=== PATIENT | male | born 1945 | race Caucasian/White ===

== ENCOUNTER 2016-09-25 22:35 | Emergency (ER) | payer OTHER ==
[~2016-09-25] VITALS: Ht 177.8 cm; Wt 99.2 kg
[~2016-09-25 22:35] MED LIST: ALBUAER19 INH; ASPI81TA57 PO; ATOR80TA PO; CALC500T83; CHOL100027 PO; CILO50TA9 PO; CITA20TA4 PO; CLON0.5T PO; CLOP1TAB5 PO; DSWCR EXT; GLUCTAB7 PO; ISOS30TA3 PO; KETO2CRE14 EXT; LPR25 PO; LSN/10125 PO; MULT-506 PO; NITR0.4S UT; SILD100T PO; ULT/50 PO
[2016-09-25 22:39] VITALS: TEMP 36.3; Ht 177.8 cm; Wt 99.2 kg
[2016-09-26 00:56] VITALS: BP 120/67; PULSE 72; O2SAT 94
--- NOTE | 2016-09-26 02:46 | EMERGENCY ROOM VISIT NOTE ---
History Report prepared by Elliott: Lit Reyes Under the Supervision of: Dr. Cuauhtemoc Carter M.D. First contact with patient: 22:56 Chief Complaint: CONSTIPATION Stated Complaint: CONSTIPATED History of Present Illness The patient is a 71 year old male who presents to the Emergency Room with complaints of constipation. His last normal bowel movement was about 4 days ago. He has been using stool softeners and MiraLAX without relief. He has been passing gas as normal. He reports some mild abdominal distention. He denies any pain. He denies any fevers, chest pain, shortness of breath, nausea, vomiting, urinary symptoms, or any other complaints. He denies any history of abdominal surgeries. He is not currently on any pain medications. Source of History: patient Onset: about 4 days ago Position: other (global) Symptom Intensity: No pain Quality: other (constipation) Modifying Factors (Relieving): other (stool softeners and MiraLAX without relief) Associated Symptoms: No SOB, No chest pain, No fevers, No nausea, No urinary symptoms, No vomiting Review of Systems See HPI for pertinent positives & negatives. A total of 10 systems reviewed and were otherwise negative. 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 (5) Depressive Disorder Nec (6) Diarrhea (7) Heart disease (8) Hypertension (9) Hypertension Nos (10) Mixed Hyperlipidemia Family History Heart disease Social History Smoking Status: Never Smoker Marital Status: Housing Status: lives with family Occupation Status: employed Current/Historical Medications Scheduled Aspirin (Aspirin Ec Lo-Dose), 81 MG PO DAILY Atorvastatin Calcium (Lipitor), 80 MG PO DAILY Calcium (Calcium), 500 MG BID Cholecalciferol (Vitamin D 1000 Unit), 1,000 INTER.UNIT PO DAILY Cilostazol (Pletal), 50 MG PO BID Citalopram Hydrobromide (Citalopram Hydrobromide), 20 MG PO DAILY Clonazepam (Klonopin), 1 MG PO HS Clopidogrel Bisulfate (Plavix), 75 MG PO DAILY Desonide 0.05% (Desowen 0.05%), 1 APPLN EXT DIRECTED Ememwzqglyg-Rapvaswguor-Grt C- (Glucosamine Chondroitin), 1 TABLET PO BID Hctz/Lisinopril (Lisinopril/Hctz 10/12.5 Mg), 1 TAB PO DAILY Hctz/Lisinopril (Lisinopril/Hctz 10/12.5 Mg), 12.5 MG PO DAILY Isosorbide Mononitrate Ext Rel (Imdur Ext Rel), 30 MG PO QAM Ketoconazole 2% (Nizoral 2%), 1 APPLN EXT DIRECTED Metoprolol Tartrate (Lopressor), 25 MG PO BID Multivitamin (Multivitamin), 1 TAB PO DAILY Nitroglycerin (Nitrostat), 0.4 MG UT PRN Sildenafil Citrate (Viagra), 100 MG PO PRN Scheduled PRN Albuterol Inhaler (Ventolin Inhaler), 2 PUFFS INH Q6 PRN Tramadol Hcl (Ultram), 50 MG PO Q4H PRN Allergies Coded Allergies: BEE STING (Unverified Allergy, Unknown, SWELLING, 09/20/14) Physical Exam Vital Signs Date Time Temp Pulse Resp B/P Pulse Ox O2 Delivery O2 Flow Rate FiO2 09/26/16 00:56 72 120/67 94 09/25/16 22:39 36.3 70 20 133/82 94 Room Air Physical Exam Constitutional: Vital signs reviewed. Eyes: Pupils are equal round reactive to light. Conjunctiva are noninjected. ENT: Pharynx is clear without erythema or exudate. Mucous membranes are moist. Neck supple without meningeal signs. Respiratory: Clear to auscultation bilaterally. Breath sounds are equal bilaterally. Cardiovascular: Regular rate and rhythm. No rubs or gallops. GI: Soft, nondistended and nontender. Bowel sounds are present. Musculoskeletal: No peripheral edema. Integumentary: No cyanosis. Neurological: The patient is awake and alert. No focal deficits. Psychiatric: Normal affect. Medical Decision & Procedures ER Provider Diagnostic Interpretation: X-ray results as stated below per interpretation by me: CHEST/ABDOMEN X-RAY Significant fecal retention, no obstruction or free air. ED Course 2255: The patient was evaluated in room C02B. A complete history and physical exam was performed. 0039: Upon reevaluation, the patient appeared to have improvement of his symptoms. He had a large bowel movement prior to the enema and feels much better. I discussed tonight's findings with him. He verbalized agreement of the treatment plan. He was discharged home. Medical Decision This is a 71-year-old male who presents with constipation. I did perform a limited focused review of portions of the patient's old chart on the electronic medical record. The patient has had no recent pertinent visits to this hospital. I did evaluate the patient as noted above. He is presenting without a bowel movement for several days. He has had some slight abdominal distention but denies any pain, nausea, fever or vomiting. I did order and personally review the patient's abdominal and chest x-rays as described above. He does have fecal retention without evidence of obstruction. I did discuss the x-ray results with them. I did order a soapsuds enema. The nurse states that before he was given the enema and the patient decided to try to have a bowel movement and had a very large bowel movement. On reevaluation he states he feels much better and is ready for discharge. He was advised to continue stool softeners and increase his fiber and fluid intake. He was told to follow with his doctor and discharged in good condition. Impression Primary Impression: Constipation Scribe Attestation The scribe's documentation has been prepared under my direct and personally reviewed by me in its entirety. I confirm that the note above accurately reflects all work, treatment, procedures, and medical decision making performed by me. Departure Information Dispostion Home / Self-Care Referrals Dallas Chong M.D. (PCP) Forms HOME CARE DOCUMENTATION FORM, IMPORTANT VISIT INFORMATION Patient Instructions Constipation, [facility] Additional Instructions You have been examined and treated today on an emergency basis only. This is not a substitute for, or an effort to provide, complete comprehensive medical care. It is impossible to recognize and treat all injuries or illnesses in a single emergency department visit. It is therefore important that you follow up closely with your physician. Call as soon as possible for an appointment. Return for worsening symptoms or if you develop fever, vomiting, abdominal pain or any other concerning symptoms. Problem Qualifiers Primary Impression: Constipation Constipation type: unspecified constipation type Qualified Codes: K59.00 - Constipation, unspecified
--- NOTE | 2016-09-26 06:47 | DIAGNOSTIC IMAGING REPORT ---
PA CHEST RADIOGRAPH AND UPRIGHT AND SUPINE AP RADIOGRAPHS OF THE ABDOMEN CLINICAL HISTORY: Constipation. Evaluate for bowel obstruction. COMPARISON STUDY: Chest radiograph and CT of the abdomen and pelvis September 20, 2014. FINDINGS: Lung volumes are normal. There is no pneumothorax or pleural effusion. There is mild interstitial thickening which may be chronic. Cardiac size is normal. Mediastinal contours are normal. There is no evidence of pulmonary edema. There is no free air. A large amount of stool within the colon and rectum is noted. There is mild to moderate distention of the colon. IMPRESSION: 1. Large amount of stool within the colon and rectum with associated colonic distention. 2. No convincing evidence for a bowel obstruction. 3. No free air. 4. No acute cardiopulmonary findings. 5. Interstitial thickening within the lungs which may be chronic. Electronically signed by: Kvng Werner M.D. 09/26/2016 6:46 AM Dictated Date/Time: 09/26/2016 6:43 AM
== END 2016-09-26 00:57 | disposition home or self-care (01) ==
LOC: C.EDB 22:36 → C.EDC 09-26 00:57
DX: K59.00 Constipation, unspecified (principal); Z98.49 Cataract extraction status, unspecified eye; I25.10 Atherosclerotic heart disease of native coronary artery without angina pectoris; F32.9 Major depressive disorder, single episode, unspecified; I10 Essential (primary) hypertension; E78.2 Mixed hyperlipidemia; Z79.82 Long term (current) use of aspirin; Z79.899 Other long term (current) drug therapy

== ENCOUNTER 2017-04-19 21:46 | Emergency (ER) | payer OTHER ==
[~2017-04-19] VITALS: Ht 177.8 cm; Wt 99.9 kg
[~2017-04-19 21:46] MED LIST changes: -MULT-506 PO
[2017-04-19 21:58] VITALS: Ht 177.8 cm; Wt 99.9 kg
[2017-04-19] MEDS ORDERED: HYDROCODONE/HOMATROPINE SYRUP 5MG/1.5MG 5ML UDP PO STA (22:19)
[2017-04-19] MEDS ORDERED: SODIUM CHLORIDE 0.9% 500ML 500 ML IV STA (22:19)
--- NOTE | 2017-04-19 22:23 | EMERGENCY ROOM VISIT NOTE ---
History Report prepared by Elliott: Jer Stauffer Under the Supervision of: Dr. Marin Bradford M.D. First contact with patient: 22:06 Chief Complaint: SORETHROAT Stated Complaint: COUGH,CHILLS,SOB,GOING ON SINCE EARLY MARCH History of Present Illness The patient is a 72 year old male who presents to the Emergency Room with complaints of a persistent sorethroat and cough beginning one month ago. The patient states one month ago, he developed a cough, post nasal drip, sorethroat , and he could not stop sneezing. He reports the sorethroat was concerning because he has a history of a tonsillectomy. The patient notes he was evaluated and given amoxicillin. He states he started to feel better, but then he got worse. The patient reports he would wake up in the middle of the night to cough. He notes he was reevaluated after he finished his amoxicillin and was given prednisone. The patient states he continued to use the nose sprays and take his prednisone. He reports he received two chest x-rays as well, and they were both negative. The patient notes he coughed to the point he could not catch his breath. He states he can still feel the mucus in his nose, and he developed a headache. The patient reports he has tried cough medication and Robitussin, but they did not help. He notes he recently started Lisinopril, but his cough developed before he was prescribed the medication. Source of History: patient Onset: month ago Position: other (global) Quality: other (sorethroat, cough) Timing: other (persistent) Associated Symptoms: + headache Note: Associated symptoms: post nasal drip, sneezing, mucus in nose Review of Systems See HPI for pertinent positives & negatives. A total of 10 systems reviewed and were otherwise negative. 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 (5) Depressive Disorder Nec (6) Diarrhea (7) Heart disease (8) Hypertension (9) Hypertension Nos (10) Mixed Hyperlipidemia Family History Heart disease Social History Smoking Status: Never Smoker Marital Status: Housing Status: lives with family Occupation Status: employed Current/Historical Medications Scheduled Aspirin (Aspirin), 1 TAB PO DAILY Calcium (Calcium), 500 MG BID Cholecalciferol (Vitamin D 1000 Unit), 1,000 INTER.UNIT PO DAILY Cilostazol (Pletal), 100 MG PO BID Citalopram Hydrobromide (Citalopram Hydrobromide), 20 MG PO DAILY Clonazepam (Klonopin), 1 MG PO HS Coenzyme Q10 (Ubidecarenone) (Co Q-10), 400 MG PO DAILY Famotidine (Pepcid), 40 MG PO HS Fluticasone Propionate (Nasal) (Flonase Allergy Relief), 2 SPRAYS LUCÍA DAILY Folic Acid (Folic Acid), 400 MCG PO DAILY Levofloxacin (Levaquin), 750 MG PO DAILY Lisinopril (Prinivil), 5 MG PO DAILY Metoprolol Succ (Toprol Xl) (Toprol-Xl), 25 MG PO DAILY Multivitamin (Multivitamin), 1 TAB PO DAILY Nitroglycerin (Nitrostat), 0.4 MG UT PRN Prednisone Tab (Prednisone), 10 MG PO TAPER UD Simvastatin (Zocor), 10 MG PO QPM Scheduled PRN Albuterol Hfa (Ventolin Hfa), 2 PUFFS INH Q6H PRN for SOB/Wheezing Guaifenesin/Codeine (Robitussin-Ac Syrup), 5 ML PO Q4 PRN for Cough Hydrocodone W/ Homatropine (Hycodan 5/1.5MG 5 Ml), 5 ML PO HS PRN for Cough Allergies Coded Allergies: Atorvastatin (Verified Allergy, Unknown, MUSCLE PAIN, 04/19/17) BEE STING (Unverified Allergy, Unknown, SWELLING, 09/20/14) Physical Exam Vital Signs Date Time Temp Pulse Resp B/P (MAP) Pulse Ox O2 Delivery O2 Flow Rate FiO2 04/20/17 00:09 36.7 60 18 134/67 95 Room Air 04/19/17 23:00 63 18 95 Room Air 04/19/17 22:37 69 04/19/17 22:35 96 Room Air 04/19/17 22:35 96 Room Air 04/19/17 21:58 36.7 69 18 127/75 92 Room Air Physical Exam GENERAL: Patient is a healthy-appearing well-nourished 72 year old male. HEAD: Normocephalic atraumatic EYES: Ocular movements intact pupils equal and react to light OROPHARYNX mucous membranes are moist no exudates present no erythema or edema present NECK: Supple no nuchal rigidity CHEST: Good equal expansion LUNGS: Clear and equal to auscultation CARDIAC: Normal S1 and S2 ABDOMEN: Soft nontender no guarding BACK: No CVA tenderness EXTREMITIES: No pain upon palpation normal muscle strength in all groups no clubbing cyanosis or edema NEURO: Patient is following commands and answering questions appropriately. Alert and oriented x3 Cranial Nerves 2-12 grossly intact Medical Decision & Procedures ER Provider Diagnostic Interpretation: Radiology results as stated below per my review and radiologist interpretation: CHEST ONE VIEW PORTABLE HISTORY: Pt c/o cough COMPARISON: Chest 09/25/2016. FINDINGS: No focal lung consolidations to suggest pneumonia. No evidence for pulmonary edema. The heart is normal in size. No pleural effusions. No pneumothorax. IMPRESSION: No acute process. Electronically signed by: Praneeth Luther M.D. 04/19/2017 11:04 PM Dictated Date/Time: 04/19/2017 11:03 PM Laboratory Results 04/19/17 22:37 Red Blood Count 4.62, Mean Corpuscular Volume 89.6, Mean Corpuscular Hemoglobin 30.7, Mean Corpuscular Hemoglobin Concent 34.3, Mean Platelet Volume 9.9, Neutrophils (%) (Auto) 70.1, Lymphocytes (%) (Auto) 13.1, Monocytes (%) (Auto) 9.3, Eosinophils (%) (Auto) 6.4, Basophils (%) (Auto) 0.7, Neutrophils # (Auto) 5.96, Lymphocytes # (Auto) 1.11, Monocytes # (Auto) 0.79, Eosinophils # (Auto) 0.54, Basophils # (Auto) 0.06 04/19/17 22:37 Test 04/19/17 22:30 04/19/17 22:37 Influenza Type A (RT-PCR) Neg for Influ A (NEG) Influenza Type A Antigen Neg for Influ A (NEG) Influenza Type B Antigen Neg for Influ B (NEG) Influenza Type B (RT-PCR) Neg for Influ B (NEG) White Blood Count 8.49 K/uL (4.8-10.8) Red Blood Count 4.62 M/uL (4.7-6.1) Hemoglobin 14.2 g/dL (14.0-18.0) Hematocrit 41.4 % (42-52) Mean Corpuscular Volume 89.6 fL (80-100) Mean Corpuscular Hemoglobin 30.7 pg (25-34) Mean Corpuscular Hemoglobin Concent 34.3 g/dl (32-36) Platelet Count 191 K/uL (130-400) Mean Platelet Volume 9.9 fL (7.4-10.4) Neutrophils (%) (Auto) 70.1 % Lymphocytes (%) (Auto) 13.1 % Monocytes (%) (Auto) 9.3 % Eosinophils (%) (Auto) 6.4 % Basophils (%) (Auto) 0.7 % Neutrophils # (Auto) 5.96 K/uL (1.4-6.5) Lymphocytes # (Auto) 1.11 K/uL (1.2-3.4) Monocytes # (Auto) 0.79 K/uL (0.11-0.59) Eosinophils # (Auto) 0.54 K/uL (0-0.5) Basophils # (Auto) 0.06 K/uL (0-0.2) RDW Standard Deviation 45.4 fL (36.4-46.3) RDW Coefficient of Variation 13.8 % (11.5-14.5) Immature Granulocyte % (Auto) 0.4 % Immature Granulocyte # (Auto) 0.03 K/uL (0.00-0.02) Anion Gap 6.0 mmol/L (3-11) Est Creatinine Clear Calc Drug Dose 64.3 ml/min Estimated GFR () 67.6 Estimated GFR (Non- 58.3 BUN/Creatinine Ratio 16.7 (10-20) Calcium Level 8.3 mg/dl (8.5-10.1) Total Bilirubin 0.3 mg/dl (0.2-1) Aspartate Amino Transf (AST/SGOT) 14 U/L (15-37) Alanine Aminotransferase (ALT/SGPT) 23 U/L (12-78) Alkaline Phosphatase 96 U/L (45-117) Total Protein 6.3 gm/dl (6.4-8.2) Albumin 3.2 gm/dl (3.4-5.0) Globulin 3.1 gm/dl (2.5-4.0) Albumin/Globulin Ratio 1.0 (0.9-2) Labs reviewed by ED physician. Medications Administered Medications (Trade) Dose Ordered Sig/Willian Route Start Time Stop Time Status Last Admin Dose Admin Sodium Chloride 500 ml @ 999 mls/hr Q31M STAT IV 04/19/17 22:19 04/19/17 22:49 DC 04/19/17 22:51 999 MLS/HR Hydrocodone Bit/ Homatropine Methylb (Hycodan Syrup) 5 ml NOW STAT PO 04/19/17 22:19 04/19/17 22:22 DC 04/19/17 22:51 5 ML Albuterol/ Ipratropium (Duoneb) 12 ml ONE ONCE INH 04/19/17 22:30 04/19/17 22:31 DC 04/19/17 22:55 12 ML Levofloxacin (Levaquin Tab) 750 mg NOW STAT PO 04/19/17 22:26 04/19/17 22:27 DC 04/19/17 22:52 750 MG Sodium Chloride ([place] Nasal [place]) 2 sprays NOW STAT NA 04/19/17 22:31 04/19/17 22:32 DC 04/19/17 22:52 2 SPRAYS Famotidine (Pepcid Tab) 20 mg NOW STAT PO 04/19/17 22:42 04/19/17 22:43 DC 04/19/17 23:00 20 MG Sucralfate (Carafate Tab) 1 gm NOW STAT PO 04/19/17 22:42 04/19/17 22:43 DC 04/19/17 23:00 1 GM Lidocaine HCl (Viscous Lidocaine 2% Soln) 20 ml STK-MED ONCE .ROUTE 04/19/17 22:54 04/19/17 22:55 DC 04/19/17 23:01 20 ML Al Hydroxide/Mg Hydroxide (Maalox Susp) 30 ml STK-MED ONCE .ROUTE 04/19/17 22:54 04/19/17 22:55 DC 04/19/17 23:00 30 ML Hydrocodone Bit/ Homatropine Methylb (Hycodan Elix Homepack 5/1.5MG/ 5ML) 1 homepack UD STAT PO 04/20/17 00:05 04/20/17 00:06 DC 04/20/17 00:14 1 HOMEPACK ECG Indication: SOB/dyspnea Rate (beats per minute): 67 Rhythm: normal sinus Findings: RBBB (incomplete), no acute ischemic change, no ectopy ED Course 2209: Past medical records reviewed. The patient was evaluated in room C08. A complete history and physical examination was performed. 2218: Ordered Hycodan Syrup 5ml PO, Sodium Chloride 500 ml @ 999 mls/hr IV 6: Ordered Levofloxacin 750mg PO 2230: Ordered Duoneb 12ml INH 223: Ordered Sodium Chloride 2 sprays NA 2242: Ordered Sucralfate 1gm PO, Famotidine 20mg PO 2254: Ordered Maalox Susp 30ml PO, Lidocaine HCl 20ml .ROUTE Medical Decision Differential diagnosis: Etiologies such as viral syndrome, tonsillitis, streptococcal pharyngitis, mononucleosis, peritonsillar abscess, retropharyngeal abscess, otitis, pneumonia , influenza, as well as others were entertained. This is a 72-year-old male who presents emergency department complaining of cough that has been ongoing for the past 6 weeks. The patient was given Hycodan in the emergency department along with hour-long breathing treatment and started on Levaquin. A pertussis sample was obtained. I recommended that the patient stopped taking was sent up rolled. At this point I feel that the patient is well enough to be discharged home for follow-up with his primary care physician. Patient and are in agreement with the treatment plan. Medication Reconcilliation Current Medication List: was personally reviewed by me Blood Pressure Screening Patient's blood pressure: Normal blood pressure Blood pressure disposition: Did not require urgent referral Impression Primary Impression: Cough Scribe Attestation The scribe's documentation has been prepared under my direction and personally reviewed by me in its entirety. I confirm that the note above accurately reflects all work, treatment, procedures, and medical decision making performed by me. Departure Information Dispostion Home / Self-Care Prescriptions Hydrocodone W/ Homatropine (HYCODAN 5/1.5MG 5 ML) 1 Syp Syp 5 ML PO HS Y for Cough, #120 ML Prov: Marin Bradford MD 04/20/17 Famotidine (Pepcid) 40 Mg Tab 40 MG PO HS for 30 Days, #30 TAB Prov: Marin Bradford MD 04/20/17 Levofloxacin (Levaquin) 750 Mg Tab 750 MG PO DAILY for 5 Days, #5 TAB Prov: Marin Bradford MD 04/20/17 Referrals Kaz Robledo M.D. (PCP) Patient Instructions [facility]
[2017-04-19] MEDS ORDERED: LEVOFLOXACIN 250 MG TAB PO STA (22:26)
[2017-04-19] MEDS ORDERED: ALBUT/IPRATROP 3MG/0.5MG NEB 3 ML VIAL INH ONE (22:30)
[2017-04-19] MEDS ORDERED: SODIUM CHLORIDE 0.65% NA SOLN 45 ML (OCEAN) STA (22:31)
[2017-04-19] MEDS ORDERED: PRED10TA PO (22:34)
[2017-04-19] MEDS ORDERED: METO25TA3 PO (22:34)
[2017-04-19] MEDS ORDERED: GUAISYP4 PO (22:34)
[2017-04-19] MEDS ORDERED: VNTHFA/IN INH (22:34)
[2017-04-19] MEDS ORDERED: FLUT0.15 NAE (22:34)
[2017-04-19] MEDS ORDERED: FLV400 PO (22:34)
[2017-04-19] MEDS ORDERED: ASPI1TAB83 PO (22:34)
[2017-04-19] MEDS ORDERED: CILO100T PO (22:34)
[2017-04-19] MEDS ORDERED: SIMV10TA2 PO (22:34)
[2017-04-19] MEDS ORDERED: LISI-729 PO (22:34)
[2017-04-19] MEDS ORDERED: COEN1CAP40 PO (22:34)
[2017-04-19 22:35] VITALS: O2SAT 96
[2017-04-19] MEDS ORDERED: FAMOTIDINE 20 MG TAB PO STA (22:42)
[2017-04-19] MEDS ORDERED: GI COCKTAIL PO STA (22:42)
[2017-04-19] MEDS ORDERED: SUCRALFATE 1 GM TAB PO STA (22:42)
[2017-04-19 22:51] LABS: BASO % 0.7 %; BASO ABS # 0.06 K/uL (0-0.2); COMPLETE YES; EOS % 6.4 %; HEMATOCRIT 41.4 % (42-52); IG% 0.4 %; LYMPH % 13.1 %; LYMPH ABS # 1.11 K/uL (1.2-3.4); MEAN CELL VOLUME 89.6 fL (80-100); MEAN CORPUSCULAR HEMOGLOBIN 30.7 pg (25-34); MEAN CORPUSCULAR HGB CONC 34.3 g/dl (32-36); MEAN PLATELET VOLUME 9.9 fL (7.4-10.4); MONO % 9.3 %; NEUT % 70.1 %; PLATELET COUNT 191 K/uL (130-400); RED BLOOD COUNT 4.62 M/uL (4.7-6.1); WHITE BLOOD COUNT 8.49 K/uL (4.8-10.8)
[2017-04-19] MEDS ORDERED: ALUMINUM/MAGNESIUM SUSP 30 ML UDC ONE (22:54)
[2017-04-19] MEDS ORDERED: LIDOCAINE HCL 2% VISC SOLN 20 ML UDC ONE (22:54)
[2017-04-19 23:00] VITALS: PULSE 63; O2SAT 95
--- NOTE | 2017-04-19 23:05 | DIAGNOSTIC IMAGING REPORT ---
CHEST ONE VIEW PORTABLE HISTORY: Pt c/o cough COMPARISON: Chest 09/25/2016. FINDINGS: No focal lung consolidations to suggest pneumonia. No evidence for pulmonary edema. The heart is normal in size. No pleural effusions. No pneumothorax. IMPRESSION: No acute process. Electronically signed by: Praneeth uLther M.D. 04/19/2017 11:04 PM Dictated Date/Time: 04/19/2017 11:03 PM
[2017-04-19 23:15] LABS: BUN/CREATININE RATIO 16.7 (10-20); CALCIUM 8.3 mg/dl (8.5-10.1); CREATININE 1.23 mg/dl (0.60-1.40); POTASSIUM 3.9 mmol/L (3.5-5.1)
[2017-04-19] MEDS ORDERED: MULT-506 PO (23:54)
[2017-04-20] MEDS ORDERED: HYCODAN 60ML BOTTLE HOMEPACK PO STA (00:05)
[2017-04-20 00:06] LABS: INFLUENZA A PCR Neg for Influ A (NEG); INFLUENZA B PCR Neg for Influ B (NEG)
[2017-04-20] MEDS ORDERED: LEVO1TAB35 PO (00:08)
[2017-04-20 00:09] VITALS: BP 134/67; PULSE 60; TEMP 36.7; O2SAT 95
[2017-04-20] MEDS ORDERED: FAMO40TA6 PO (00:10)
[2017-04-20] MEDS ORDERED: HYDR5SYP11 PO (00:10)
--- NOTE | 2017-04-20 06:36 | DIAGNOSTIC IMAGING REPORT ---
CT OF THE HEAD WITHOUT CONTRAST CLINICAL HISTORY: Sinus pressure. COMPARISON STUDY: Head CT January 17, 2013. CT DOSE: 614.27 mGy.cm TECHNIQUE: Helical axial images of the head were obtained without IV contrast. Automated exposure control was utilized for the study. A dose lowering technique was utilized adhering to the principles of ALARA. FINDINGS: No acute intracranial hemorrhage, midline shift or mass effect is present. Ventricular system is unremarkable. Basilar cisterns are patent. There are no extra-axial collections. There are no findings to suggest acute dural sinus thrombosis or acute territorial infarct. There are no significant calvarial abnormalities. Mastoid air cells are clear. There is mild mucosal thickening of the sphenoid sinuses with moderate mucosal thickening of the ethmoid sinuses and a air-fluid level secretions within the right frontal sinus. IMPRESSION: 1. No acute intracranial findings. 2. Right inferior frontal sinus air-fluid level with secretions which favors acute sinusitis. Ethmoid and sphenoid sinus mucosal thickening. Electronically signed by: Kvng Werner M.D. 04/20/2017 6:35 AM Dictated Date/Time: 04/20/2017 6:32 AM
--- NOTE | 2017-04-20 11:22 | Pharmacy Progress Note ---
ED Pharmacist Progress Note Date of Service: Apr 20, 2017. [facility] pharmacy called requesting OK to dispense change famotidine Rx to 20mg tabs, take 2 tabs (40mg) Q HS. Case was reviewed with ED providers, OK to make this substitution.
== END 2017-04-20 00:22 | disposition home or self-care (01) ==
LOC: C.EDB 21:50 → C.EDC 04-20 00:22
DX: R05 Cough (principal); I25.10 Atherosclerotic heart disease of native coronary artery without angina pectoris; I10 Essential (primary) hypertension; E78.2 Mixed hyperlipidemia; F32.9 Major depressive disorder, single episode, unspecified; Z90.89 Acquired absence of other organs; Z79.02 Long term (current) use of antithrombotics/antiplatelets; Z79.82 Long term (current) use of aspirin; Z79.899 Other long term (current) drug therapy

== ENCOUNTER 2022-02-05 14:28 | Observation (INO) ==
[2022-02-05 14:52] LABS: Basophils # (auto) 0.09 K/uL (0-0.2); Basophils % (auto) 1.4 %; Eosinophils # (auto) 0.12 K/uL (0-0.50); Eosinophils % (auto) 1.9 %; Hematocrit (blood only) 41.7 % (40.1-51.0); Hemoglobin 14.6 g/dl (14.0-18.0); Immature Granulocytes # (auto) 0.01 K/uL (0.00-0.02); Immature Granulocytes % (auto) 0.2 %; Lymphocytes # (auto) 1.22 K/uL (1.2-3.4); Lymphocytes % (auto) 19.6 %; Mean Corpuscular Hemoglobin 31.5 pg (25.0-34.0); Mean Corpuscular Volume 89.9 fL (80.0-100.0); Mean Platelet Volume 9.6 fL (9.4-12.4); Monocytes # (auto) 0.37 K/uL (0.24-0.82); Monocytes % (auto) 5.9 %; Neutrophils # (auto) 4.42 K/uL (1.4-6.5); Platelet Count 200 K/uL (130-400); RDW Coefficient of Variation 12.4 % (11.5-14.5); RDW Standard Deviation 40.8 fL (36.4-46.3); Red Blood Count 4.64 M/uL (4.63-6.08); White Blood Count 6.23 K/ul (4.8-10.8)
--- NOTE | 2022-02-05 15:16 | XRay Report ---
XR chest 1V portable HISTORY: 77 years-old Male Chest Pain acute chest pain COMPARISON: Acute abdominal series radiographs 04/29/2019 TECHNIQUE: Portable AP view of the chest FINDINGS: The cardiomediastinal and hilar silhouettes appear unchanged. No pneumothorax, pleural effusion or ov ert pulmonary edema. Mild chronic interstitial coarsening. Degenerative changes of the shoulders and spine. IMPRESSION: No acute process. ACT 112: Negative or not required by law. The above report was generated using voice recognition software. It may contain grammatical, syntax o r spelling errors. Electronically signed by: Basilio Andrews M.D. 02/05/2022 3:15 PM
[2022-02-05 15:22] LABS: Troponin I High Sensitivity 5.7 pg/ml (0-20)
--- NOTE | 2022-02-05 15:32 | Emergency Department Note ---
Impression & Plan Left-sided chest pain ED Provider Note INFORMANT: Patient ED PROVIDER(S): Rancho Barth MD CHIEF COMPLAINT: Chest pain PLAN: Disposition: Admitted Condition: Good Outpatient prescription management: none Referral: None MEDICAL DECISION MAKING: Patient presented because of chest pain that has been intermittent. Work-up was initiated. His CBC and chemistry panel unremarkable. Cardiac troponin LFTs were negative. The patient had no ischemia noted on his ECG. Chest x-ray no acute pathology. Patient was given Nitropaste. He had taken aspirin today. Patient and I discussed management in the hospital given the concerning history. Patient and were in agreement. I gave my usual and customary discussion regarding this issue. [facility] Patient was evaluated in the ER admitted for further management. Triage Nursing notes reviewed and agree them. Vital Signs: reviewed and remarkable for mild hypertension Differential diagnosis: Cardiac ischemia, aortic dissection, pulmonary embolism, pneumothorax, pneumonia, pericarditis, myocarditis, esophageal rupture, GERD, cholecystitis, pancreatitis, musculoskeletal, as well as other pathologies. Diagnostics interpreted by me: ECG: Normal sinus rhythm at 72 bpm. Left anterior fascicular block and LVH present. No ST elevation or depression. Cardiac Monitoring: Cardiac monitoring ordered by me: The patient was placed on continuous cardiac monitoring and observed. It revealed a normal sinus rhythm at 66 beats per minute without ectopy or evidence of dysrhythmia. Imaging studies: Chest x-ray. Findings: A chest x-ray was performed and revealed no pneumothorax, effusion, infiltrate, pulmonary edema, free air under the diaphragm, or wide mediastinum. Impression: No acute disease. HPI: The patient is a 77year old male who presents to the Emergency Room with complaints of left-sided chest pain. This started 2 days ago and is intermittent. The patient also notes the following associated symptoms, pain radiating to the left shoulder blade. The patient has taken nitro occasionally for relieving factors. Current pain is rated as 0/10. Pt denies LOC, headache, fevers, chills, diaphoresis, visual changes, neck pain,breathing difficulties, nausea, vomiting, abdominal pain, back pain, melena, hematochezia, urinary symptoms, numbness, weakness, lymphadenopathy, rash, or other complaints. ROS: See above HPI for pertinent positives & negatives. A total of 10 systems reviewed and were otherwise negative. PAST MEDICAL HISTORY:See Below , hypertension PAST SURGICAL HISTORY:See Below, FAMILY HISTORY:See Below SOCIAL HISTORY:See Below, HOME MEDICATIONS:See Below ALLERGIES:See Below VITALS:See Below PHYSICAL EXAMINATION: GENERAL: Awake, alert, well-appearing, in no distress HENT: Normocephalic, atraumatic. Oropharynx unremarkable. EYES: Normal conjunctiva. Sclera non-icteric. NECK: Inspection normal. Non-tender. Supple. No nuchal rigidity. FROM. No masses. RESPIRATORY: Clear to auscultation. No wheezes. No rales. Normal respiratory effort. CARDIAC: Normal rate. Normal rhythm. No murmurs. No rubs. Extremities warm and well perfused. Pulses equal. No JVD. GI: Soft, non-distended. No tenderness to palpation. No rebound or guarding. No masses. RECTAL: Deferred. MUSCULOSKELETAL: Atraumatic. Chest examination reveals no tenderness. The back is symmetrical on inspection without obvious abnormality. There is no CVA tenderness to palpation. No joint edema. LOWER EXTREMITIES: Calves are equal size bilaterally and non-tender. No edema. No discoloration. NEURO: Normal sensorium. No sensory or motor deficits noted. SKIN: No rash or jaundice noted. Rancho Barth MD Past Med/Surg History Medical History (Updated 02/05/22 @ 18:01 by Saúl Olson MD) Abdominal pain CAD (coronary artery disease) Constipation Diarrhea Heart disease Hyperlipidemia Hypertension Family History Other Family history non-contributory Social History Smoking Status: Never smoker Preferred Language: Nigerian Feels Safe at Home: Yes Allergies Allergies Allergy/AdvReac Type Severity Reaction Status Date / Time atorvastatin Allergy Unknown MUSCLE PAIN Verified 02/05/22 18:46 bee venom protein (honey bee) Allergy Unknown SWELLING Unverified 02/05/22 18:46 Home Meds Home Medications Medication Instructions Recorded Confirmed calcium carbonate 500 mg calcium 500 mg PO DAILY ##0 01/17/13 02/05/22 (1,250 mg) tablet (Calcium 500) citalopram 20 mg tablet 10 mg PO DAILY ##0 01/17/13 02/05/22 nitroglycerin 0.4 mg sublingual 0.4 mg sublingual UD #0 BTLS 01/17/13 02/05/22 tablet (Nitrostat) multivitamin 1 tab PO DAILY #0 tabs 09/20/14 02/05/22 albuterol sulfate 90 mcg/actuation 2 puff inhalation Q6H PRN 04/19/17 02/05/22 aerosol inhaler (Ventolin HFA) Shortness Of Breath #1 inhaler aspirin 81 mg tablet,delayed 81 mg PO DAILY 90 days #90 tabs 04/19/17 02/05/22 release (Pollo Low Dose Aspirin) cilostazol 100 mg tablet 100 mg PO BID #0 tabs 04/19/17 02/05/22 coenzyme Q10 400 mg capsule (Co 400 mg PO DAILY 05/15/19 02/05/22 Q-10) docusate sodium 100 mg capsule 100 mg PO DAILY PRN Constipation 05/15/1902/05 fluticasone propionate 50 2 sprays intranasal DAILY 05/15/19 02/05/22 mcg/actuation nasal spray,suspension folic acid 400 mcg tablet 0.4 mg PO DAILY 05/15/19 02/05/22 metoprolol succinate 25 mg 25 mg PO DAILY 05/15/19 02/05/22 tablet,extended release 24 hr clonazepam 0.5 mg tablet (Klonopin) 0.5 - 1 mg PO HS PRN sleep #0 tabs 11/25/19 02/05/22 diclofenac sodium 1 % topical gel 4 g topical UD PRN pain 11/25/19 02/05/22 evolocumab 420 mg/3.5 mL 420 mg subcut MONTHLY 11/25/19 02/05/22 subcutaneous wearable injector (Repatha Pushtronex) fluocinonide 0.05 % topical cream 1 appln topical UD PRN itching 11/25/19 02/05/22 ketoconazole 2 % shampoo 1 appln topical UD 11/25/19 02/05/22 ketoconazole 2 % topical cream 1 appln topical UD 11/25/19 02/05/22 lisinopril 10 mg tablet 10 mg PO DAILY 11/25/19 02/05/22 cholecalciferol (vitamin D3) 25 25 mcg PO Q OTHER DAY 02/05/22 02/05/22 mcg (1,000 unit) tablet (Vitamin D3) isosorbide mononitrate 30 mg 30 mg PO QAM 02/05/22 02/05/22 tablet,extended release 24 hr linaclotide 290 mcg capsule 290 mcg PO QAM PRN Constipation 02/05/22 02/05/22 (Linzess) polyethylene glycol 3350 17 gram 17 g PO Q OTHER DAY 02/05/22 02/05/22 oral powder packet (Miralax) Results & Data (ED) Vital Signs Vital Signs - 24 hr 02/05/22 14:30 02/05/22 14:45 02/05/22 14:59 Temperature 36.8 C Temperature Source Temporal Artery Scan Pulse Rate 75 Pulse Rate [Right Finger] 67 Respiratory Rate 19 22 Respiratory Effort / Characteristics Non-Labored Non-Labored Spontaneous Respiratory Depth Normal Blood Pressure 166/89 H Blood Pressure [Right Arm] 173/107 H Blood Pressure Mean 114 Blood Pressure Mean [Right Arm] 129 Pulse Oximetry 96 95 Oxygen Delivery Method Room Air Room Air Room Air Sepsis Recent Fever Within 48 Hours No Sepsis New/Unexplained Change in Mental Status No Sepsis Action Taken by Nursing No Action Required 02/05/22 15:38 02/05/22 16:00 02/05/22 16:39 Temperature Temperature Source Pulse Rate Pulse Rate [Right Finger] 64 62 58 L Respiratory Rate 22 19 22 Respiratory Effort / Characteristics Respiratory Depth Blood Pressure Blood Pressure [Right Arm] 172/95 H 143/109 H 156/94 H Blood Pressure Mean Blood Pressure Mean [Right Arm] 120 120 114 Pulse Oximetry 95 96 96 Oxygen Delivery Method Room Air Room Air Room Air Sepsis Recent Fever Within 48 Hours Sepsis New/Unexplained Change in Mental Status Sepsis Action Taken by Nursing Laboratory Data Result diagrams: 02/05/22 14:46 02/05/22 14:46 Lab Results 02/05/22 02/05/22 02/05/22 Range/Units 14:46 14:46 16:38 WBC 6.23 (4.8-10.8) K/ul RBC 4.64 (4.63-6.08) M/uL Hgb 14.6 (14.0-18.0) g/dl Hct 41.7 (40.1-51.0) % MCV 89.9 (80.0-100.0) fL MCH 31.5 (25.0-34.0) pg MCHC 35.0 (32.0-36.0) g/dL RDW Std Deviation 40.8 (36.4-46.3) fL RDW Coeff of Lanre 12.4 (11.5-14.5) % Plt Count 200 (130-400) K/uL MPV 9.6 (9.4-12.4) fL Immature Gran % (Auto) 0.2 % Neut % (Auto) 71.0 % Lymph % (Auto) 19.6 % [place] % (Auto) 5.9 % Eos % (Auto) 1.9 % Baso % (Auto) 1.4 % Neut # (Auto) 4.42 (1.4-6.5) K/uL Lymph # (Auto) 1.22 (1.2-3.4) K/uL [place] # (Auto) 0.37 (0.24-0.82) K/uL Eos # (Auto) 0.12 (0-0.50) K/uL Baso # (Auto) 0.09 (0-0.2) K/uL Immature Gran # (Auto) 0.01 (0.00-0.02) K/uL Sodium 137 (136-145) mmol/L Potassium 4.0 (3.5-5.1) mmol/L Chloride 105 (98-107) mmol/L Carbon Dioxide 25 (21-32) mmol/L Anion Gap 7 (3-11) BUN 18 (6-23) mg/dl Creatinine 0.93 (0.6-1.4) mg/dl Est Cr Clr Drug Dosing 76.7 ml/min Est GFR ( Amer) 91.5 ml/min Est GFR (Non-Af Amer) 78.9 ml/min BUN/Creatinine Ratio 19.4 (10-20) Glucose 152 H (70-99(Fasting)) mg/dl Calcium 9.2 (8.5-10.1) mg/dl Total Bilirubin 0.3 (0.2-1.0) mg/dl AST 14 (13-39) U/L ALT 11 (7-52) U/L Alkaline Phosphatase 88 (34-104) U/L Troponin I High Sens 5.7 (0-20) pg/ml Total Protein 6.7 (6.0-8.3) gm/dl Albumin 4.2 (3.4-5.0) gm/dl Globulin 2.5 (2.5-4.0) gm/dl Albumin/Globulin Ratio 1.7 (0.9-2) Lipase 14 (11-82) U/L SARS-CoV-2, RNA, NAAT NEGATIVE (NEGATIVE) Administered Medications Discontinued Medications Nitroglycerin (Nitroglycerin 2% Ointment 30gm Tube) 0.5 inch EXT NOW STA Stop: 02/05/22 16:41 Last Admin: 02/05/22 16:57 Dose: Not Given Documented By: ASW Imaging Data Radiologist's Impression: Chest X-Ray 02/05/22 14:41 XR chest 1V portable HISTORY: 77 years-old Male Chest Pain acute chest pain COMPARISON: Acute abdominal series radiographs 04/29/2019 TECHNIQUE: Portable AP view of the chest FINDINGS: The cardiomediastinal and hilar silhouettes appear unchanged. No pneumothorax, pleural effusion or overt pulmonary edema. Mild chronic interstitial coarsening. Degenerative changes of the shoulders and spine. IMPRESSION: No acute process. ACT 112: Negative or not required by law. The above report was generated using voice recognition software. It may contain grammatical, syntax or spelling errors. Electronically signed by: Basilio Andrews M.D. 02/05/2022 3:15 PM Discharge Plan Visit Data Chief Complaint: Chest Pain Stated Complaint: CHEST PAIN,WEAKNESS ED Provider: Rancho Barth Discharge Problem: Left-sided chest pain Patient Disposition: Admitted As Inpatient Discharge Instructions Interventions: ED Discharge Assessment Last Done: 02/05/22 20:55
[2022-02-05 15:36] LABS: Albumin Globulin Ratio 1.7 (0.9-2); Albumin Level 4.2 gm/dl (3.4-5.0); BUN Creatinine Ratio 19.4 (10-20); Bilirubin,Total 0.3 mg/dl (0.2-1.0); Calcium 9.2 mg/dl (8.5-10.1); Creatinine Clr Calc Pharmacy 76.7 ml/min; Est GFR (African American) 91.5 ml/min; Est GFR (Non-African American) 78.9 ml/min; Globulin 2.5 gm/dl (2.5-4.0); Total Protein 6.7 gm/dl (6.0-8.3)
[2022-02-05] MEDS ORDERED: NITROGLYCERIN 2% OINTMENT 30GM TUBE EXT STA (16:40)
[2022-02-05] MEDS ORDERED: ACETAMINOPHEN 325 MG TAB PO PRN (16:48)
--- NOTE | 2022-02-05 17:48 | History & Physical Report ---
Date of Service February 05, 2022 Assessment & Plan (1) CAD (coronary artery disease): (2) Left-sided chest pain: (3) Peripheral arterial disease: (4) Hypertension: (5) Hyperlipidemia: Plan: Pt with hx of CAD w/ chronic occlusion of proximal LAD with right to left collaterals and 50% diffuse mid RCA stenosis with preserved LV systolic function -follows w/ cardiology Dr. Pringle -Now presents with left-sided chest pressure that started 2 days ago -Associated shortness of breath, nausea, lightheadedness -Improved with nitro and rest -EKG in the ED without significant changes, troponin negative -Nitropaste in the ED -Admit to obs, telemetry -Repeat troponin, EKG as needed with chest pain -We will obtain echo, and further discuss with cardiology HTN, HLD, PAD - cont. home meds DVT ppx: SCDs Code: DNR/DNI History of Present Illness Chief Complaint: Chest pain Primary Care Provider: Kaz Robledo MD Patient is a 77-year-old male with history of hypertension, hyperlipidemia, prediabetes, peripheral artery disease, carotid stenosis, COPD, CAD who presents with chest pain. Patient reports that he experienced left-sided chest pressure on Sunday evening, at that time it took nitro x2. Reports he usually does not take nitro. After second pill he was able to fall asleep. On Sunday he was not feeling himself and spent most of the day laying down. He felt left-sided chest pressure with any minimal exertion. He also reports having associated symptoms such as shortness of breath, nausea and feeling lightheaded. Currently in the ER, patient reports feeling okay while he is sitting up in bed. Denies any chest pain. Denies any shortness of breath, nausea, as a matter of fact he is hungry and is asking for dinner. Denies any diaphoresis abdominal pain, dizziness or lightheadedness. In ED, EKG without any significant changes. Troponin negative. Due to elevated blood pressure, and patient's symptoms, Nitropaste was given. Allergies Allergy/AdvReac Type Severity Reaction Status Date / Time atorvastatin Allergy Unknown MUSCLE PAIN Verified 02/05/22 18:46 bee venom protein (honey bee) Allergy Unknown SWELLING Unverified 02/05/22 18:46 Home Medications Medication Instructions Recorded Confirmed Type calcium carbonate 500 mg calcium 500 mg PO DAILY ##0 01/17/13 11/24/21 History (1,250 mg) tablet (Calcium 500) citalopram 20 mg tablet 10 mg PO DAILY ##0 01/17/13 11/24/21 History nitroglycerin 0.4 mg sublingual 0.4 mg sublingual UD #0 BTLS 01/17/13 11/24/21 History tablet (Nitrostat) multivitamin 1 tab PO DAILY #0 tabs 09/20/14 11/24/21 History albuterol sulfate 90 mcg/actuation 2 puff inhalation Q6H PRN 04/19/17 11/24/21 History aerosol inhaler (Ventolin HFA) Shortness Of Breath #1 inhaler aspirin 81 mg tablet,delayed 81 mg PO DAILY 90 days #90 tabs 04/19/17 11/24/21 History release (Pollo Low Dose Aspirin) cilostazol 100 mg tablet 100 mg PO BID #0 tabs 04/19/17 11/24/21 History coenzyme Q10 400 mg capsule (Co 400 mg PO DAILY 05/15/19 11/24/21 History Q-10) docusate sodium 100 mg capsule 100 mg PO DAILY PRN 05/15/19 11/24/21 History fluticasone propionate 50 2 sprays intranasal DAILY 05/15/19 11/24/21 History mcg/actuation nasal spray,suspension folic acid 400 mcg tablet 0.4 mg PO DAILY 05/15/19 11/24/21 History metoprolol succinate 25 mg 25 mg PO DAILY 05/15/19 11/24/21 History tablet,extended release 24 hr clonazepam 0.5 mg tablet (Klonopin) 0.5 - 1 mg PO HS PRN sleep #0 tabs 11/25/19 11/24/21 History diclofenac sodium 1 % topical gel 4 g topical UD PRN pain 11/25/19 11/25/19 History evolocumab 420 mg/3.5 mL 420 mg subcut MONTHLY 11/25/19 11/24/21 History subcutaneous wearable injector (Repatha Pushtronex) fluocinonide 0.05 % topical cream 1 appln topical UD PRN itching 11/25/19 11/25/19 History ketoconazole 2 % shampoo 1 appln topical UD 11/25/19 11/25/19 History ketoconazole 2 % topical cream 1 appln topical UD 11/25/19 11/25/19 History lisinopril 10 mg tablet 10 mg PO DAILY 11/25/19 11/24/21 History cholecalciferol (vitamin D3) 25 25 mcg PO Q OTHER DAY 02/05/22 02/05/22 History mcg (1,000 unit) tablet (Vitamin D3) isosorbide mononitrate 30 mg 30 mg PO QAM 02/05/22 02/05/22 History tablet,extended release 24 hr linaclotide 290 mcg capsule 290 mcg PO QAM PRN Constipation 02/05/22 02/05/22 History (Linzess) polyethylene glycol 3350 17 gram 17 g PO Q OTHER DAY 02/05/22 02/05/22 History oral powder packet (Miralax) Past Med/Surg History Medical History (Updated 02/05/22 @ 18:01 by Saúl Olson MD) Abdominal pain CAD (coronary artery disease) Constipation Diarrhea Heart disease Hyperlipidemia Hypertension Family History Other Family history non-contributory Social History Smoking Status: Never smoker Preferred Language: Macedonian Feels Safe at Home: Yes Review of Systems Review of Systems: All systems reviewed & are unremarkable except as noted in HPI & below Physical Exam Constitutional: WD/WN, vitals as above Eyes: PERRL, conjunctivae normal, anicteric sclerae ENMT: external ear and nose normal, oropharynx normal Neck: trachea midline, no thyromegaly Respiratory: normal respiratory effort, lungs clear to auscultation Cardiovascular: RRR, no murmur, no edema Chest (Breasts): Chest: normal inspection of chest Gastrointestinal (Abdomen): normal bowel sounds, soft, nontender, no hepatosplenomegaly Musculoskeletal: no cyanosis or clubbing, extremities motor strength 5/5 Skin: no rashes, warm and dry Neurologic: PERRL, EOMI, accommodation nl, no face palsy, no dysarthria Psychiatric: A+Ox3, euthymic affect Genitourinary: no CVA tenderness Lymphatic: no lymphedema Results & Data Results & Data ([facility]) Vital Signs (Past 12 Hours) Vital Signs Temp Pulse Pulse Resp BP BP Pulse Ox 02/05/22 17:41 72 16 95 02/05/22 16:39 58 L 22 156/94 H 96 02/05/22 16:00 62 19 143/109 H 96 02/05/22 15:38 64 22 172/95 H 95 02/05/22 14:59 67 22 173/107 H 95 02/05/22 14:45 02/05/22 14:30 36.8 C 75 19 166/89 H 96 O2 Del Method 02/05/22 17:41 Room Air 02/05/22 16:39 Room Air 02/05/22 16:00 Room Air 02/05/22 15:38 Room Air 02/05/22 14:59 Room Air 02/05/22 14:45 Room Air 02/05/22 14:30 Room Air Laboratory Results 02/05/22 02/05/22 02/05/22 Range/Units 16:38 14:46 14:46 WBC 6.23 (4.8-10.8) K/ul RBC 4.64 (4.63-6.08) M/uL Hgb 14.6 (14.0-18.0) g/dl Hct 41.7 (40.1-51.0) % MCV 89.9 (80.0-100.0) fL MCH 31.5 (25.0-34.0) pg MCHC 35.0 (32.0-36.0) g/dL RDW Std Deviation 40.8 (36.4-46.3) fL RDW Coeff of Lanre 12.4 (11.5-14.5) % Plt Count 200 (130-400) K/uL MPV 9.6 (9.4-12.4) fL Immature Gran % (Auto) 0.2 % Neut % (Auto) 71.0 % Lymph % (Auto) 19.6 % [place] % (Auto) 5.9 % Eos % (Auto) 1.9 % Baso % (Auto) 1.4 % Neut # (Auto) 4.42 (1.4-6.5) K/uL Lymph # (Auto) 1.22 (1.2-3.4) K/uL [place] # (Auto) 0.37 (0.24-0.82) K/uL Eos # (Auto) 0.12 (0-0.50) K/uL Baso # (Auto) 0.09 (0-0.2) K/uL Immature Gran # (Auto) 0.01 (0.00-0.02) K/uL Sodium 137 (136-145) mmol/L Potassium 4.0 (3.5-5.1) mmol/L Chloride 105 (98-107) mmol/L Carbon Dioxide 25 (21-32) mmol/L Anion Gap 7 (3-11) BUN 18 (6-23) mg/dl Creatinine 0.93 (0.6-1.4) mg/dl Est Cr Clr Drug Dosing 76.7 ml/min Est GFR ( Amer) 91.5 ml/min Est GFR (Non-Af Amer) 78.9 ml/min BUN/Creatinine Ratio 19.4 (10-20) Glucose 152 H (70-99(Fasting)) mg/dl Calcium 9.2 (8.5-10.1) mg/dl Total Bilirubin 0.3 (0.2-1.0) mg/dl AST 14 (13-39) U/L ALT 11 (7-52) U/L Alkaline Phosphatase 88 (34-104) U/L Troponin I High Sens 5.7 (0-20) pg/ml Total Protein 6.7 (6.0-8.3) gm/dl Albumin 4.2 (3.4-5.0) gm/dl Globulin 2.5 (2.5-4.0) gm/dl Albumin/Globulin Ratio 1.7 (0.9-2) Lipase 14 (11-82) U/L SARS-CoV-2, RNA, NAAT NEGATIVE (NEGATIVE) Medications Administered CXR FINDINGS: The cardiomediastinal and hilar silhouettes appear unchanged. No pneumothorax, pleural effusion or overt pulmonary edema. Mild chronic interstitial coarsening. Degenerative changes of the shoulders and spine. IMPRESSION: No acute process. Code Status & VTE Plan VTE Prophylaxis Plan VTE Prophylaxis will be ordered: Yes
[2022-02-06] MEDS: LABETALOL HCL IV 5 MG/ML 20ML IV PRN ×2 (04:59→08:36)
[2022-02-06 06:27] LABS: Hematocrit (blood only) 40.8 % (40.1-51.0); Hemoglobin 14.1 g/dl (14.0-18.0); Mean Corpuscular Hemoglobin 31.1 pg (25.0-34.0); Mean Corpuscular Hgb Conc 34.6 g/dL (32.0-36.0); Mean Corpuscular Volume 89.9 fL (80.0-100.0); Mean Platelet Volume 9.7 fL (9.4-12.4); Platelet Count 200 K/uL (130-400); RDW Coefficient of Variation 12.5 % (11.5-14.5); RDW Standard Deviation 41.2 fL (36.4-46.3); Red Blood Count 4.54 M/uL (4.63-6.08); White Blood Count 5.74 K/ul (4.8-10.8)
[2022-02-06 06:59] LABS: Troponin I High Sensitivity 8.8 pg/ml (0-20)
[2022-02-06 07:02] LABS: BUN Creatinine Ratio 19.4 (10-20); Calcium 8.9 mg/dl (8.5-10.1); Creatinine Clr Calc Pharmacy 59.9 ml/min; Est GFR (African American) 80.8 ml/min; Est GFR (Non-African American) 69.7 ml/min; Magnesium 2.1 mg/dl (1.7-2.4); Phosphorus 3.5 mg/dl (2.5-4.9)
[2022-02-06] MEDS: lisinopril 10 MG TAB PO SCH (08:41)
[2022-02-06] MEDS: CITALOPRAM 20 MG TAB PO SCH (08:41)
[2022-02-06] MEDS: ASPIRIN 81 MG ECTAB PO SCH (08:41)
[2022-02-06] MEDS: DOCUSATE SODIUM 100 MG CAP PO SCH (08:42)
[2022-02-06] MEDS: METOPROLOL SUCC 25MG EXT REL TAB PO SCH (08:42)
--- NOTE | 2022-02-06 09:14 | Electrocardiogram Report ---
Test Reason : Blood Pressure : / mmHG Vent. Rate : 072 BPM Atrial Rate : 072 BPM P-R Int : 172 ms QRS Dur : 104 ms QT Int : 384 ms P-R-T Axes : 061 -52 074 degrees QTc Int : 420 ms Normal sinus rhythm Left anterior fascicular block Moderate voltage criteria for LVH, may be normal variant Abnormal ECG When compared with ECG of 19-APR-2017 22:46, No significant change was found Confirmed by Moshe Parham ([id number]) on 02/06/2022 9:14:14 AM Referred By: Confirmed By:John Parham
[2022-02-06] MEDS ORDERED: lisinopril 20 MG TAB PO STA (10:27)
--- NOTE | 2022-02-06 10:28 | Cardiology Consultation ---
Date of Consultation February 06, 2022 History of Present Illness Attending Physician: Dylon Morse MD Allergies Allergy/AdvReac Type Severity Reaction Status Date / Time atorvastatin Allergy Unknown MUSCLE PAIN Verified 02/05/22 18:46 bee venom protein (honey bee) Allergy Unknown SWELLING Unverified 02/05/22 18:46 Home Medications Medication Instructions Recorded Confirmed Type calcium carbonate 500 mg calcium 500 mg PO DAILY ##0 01/17/13 02/05/22 History (1,250 mg) tablet (Calcium 500) citalopram 20 mg tablet 10 mg PO DAILY ##0 01/17/13 02/05/22 History nitroglycerin 0.4 mg sublingual 0.4 mg sublingual UD #0 BTLS 01/17/13 02/05/22 History tablet (Nitrostat) multivitamin 1 tab PO DAILY #0 tabs 09/20/14 02/05/22 History albuterol sulfate 90 mcg/actuation 2 puff inhalation Q6H PRN 04/19/17 02/05/22 History aerosol inhaler (Ventolin HFA) Shortness Of Breath #1 inhaler aspirin 81 mg tablet,delayed 81 mg PO DAILY 90 days #90 tabs 04/19/17 02/05/22 History release (Pollo Low Dose Aspirin) cilostazol 100 mg tablet 100 mg PO BID #0 tabs 04/19/17 02/05/22 History coenzyme Q10 400 mg capsule (Co 400 mg PO DAILY 05/15/19 02/05/22 History Q-10) docusate sodium 100 mg capsule 100 mg PO DAILY PRN Constipation 05/15/19 02/05/22 History fluticasone propionate 50 2 sprays intranasal DAILY 05/15/19 02/05/22 History mcg/actuation nasal spray,suspension folic acid 400 mcg tablet 0.4 mg PO DAILY 05/15/19 02/05/22 History metoprolol succinate 25 mg 25 mg PO DAILY 05/15/19 02/05/22 History tablet,extended release 24 hr clonazepam 0.5 mg tablet (Klonopin) 0.5 - 1 mg PO HS PRN sleep #0 tabs 11/25/19 02/05/22 History diclofenac sodium 1 % topical gel 4 g topical UD PRN pain 11/25/19 02/05/22 History evolocumab 420 mg/3.5 mL 420 mg subcut MONTHLY 11/25/19 02/05/22 History subcutaneous wearable injector (Repatha Pushtronex) fluocinonide 0.05 % topical cream 1 appln topical UD PRN itching 11/25/19 02/05/22 History ketoconazole 2 % shampoo 1 appln topical UD 11/25/19 02/05/22 History ketoconazole 2 % topical cream 1 appln topical UD 11/25/19 02/05/22 History lisinopril 10 mg tablet 10 mg PO DAILY 11/25/19 02/05/22 History cholecalciferol (vitamin D3) 25 25 mcg PO Q OTHER DAY 02/05/22 02/05/22 History mcg (1,000 unit) tablet (Vitamin D3) isosorbide mononitrate 30 mg 30 mg PO QAM 02/05/22 02/05/22 History tablet,extended release 24 hr linaclotide 290 mcg capsule 290 mcg PO QAM PRN Constipation 02/05/22 02/05/22 History (Linzess) polyethylene glycol 3350 17 gram 17 g PO Q OTHER DAY 02/05/22 02/05/22 History oral powder packet (Miralax) Patient History Medical History (Updated 02/05/22 @ 18:01 by Saúl Olson MD) Abdominal pain CAD (coronary artery disease) Constipation Diarrhea Heart disease Hyperlipidemia Hypertension Family History Other Family history non-contributory Social History Smoking Status: Former smoker Hx Alcohol Use: No Hx Substance Use: No Preferred Language: Malay Communication Ability: Effective Cardiovascular Disease Specialist Required: No Beliefs That Will Affect Care: None Current Living Situation: Spouse Other Information That Helps Us Care for You: No Feels Safe at Home: Yes Safety Concerns: Feels Safe At This Time Assistive Devices: Denture - Upper, Denture - Lower, Glasses and Hearing Aid - Bilateral Results & Data ([facility]) Vital Signs (Past 12 Hours) Vital Signs Temp Pulse Pulse Resp BP BP Pulse Ox 02/06/22 09:10 55 L 182/85 H 02/06/22 08:30 60 202/100 H 02/06/22 07:16 61 02/06/22 06:03 59 L 189/95 H 02/06/22 04:00 36.6 C 60 18 201/101 H 95 02/05/22 23:00 36.7 C 60 18 181/93 H 95 O2 Del Method 02/06/22 09:10 02/06/22 08:30 02/06/22 07:16 02/06/22 06:03 02/06/22 04:00 Room Air 02/05/22 23:00 Room Air
[2022-02-06] MEDS: ISOSORBIDE MONO EXTENDED REL 30 MG TABCR PO SCH (10:58)
--- NOTE | 2022-02-06 15:31 | Hospitalist Progress Note ---
Date of Service February 06, 2022 Assessment & Plan (1) Left-sided chest pain: Plan: Pt with hx of CAD w/ chronic occlusion of proximal LAD with right to left collaterals and 50% diffuse mid RCA stenosis with preserved LV systolic function -follows w/ cardiology Dr. Pringle -Now presents with left-sided chest pressure that started 2 days ago -Associated shortness of breath, nausea, lightheadedness -Improved with nitro and rest -EKG in the ED without significant changes, troponin negative -Nitropaste in the ED -Serial troponins are unremarkable for any ACS -Remains free from any chest pain and/or palpitation -Appreciate cardiology input and recommendation (2) Hypertension: Plan: Presented with hypertensive urgency With the blood pressure noted to be as high as 235/150 Likely the cause for chest pain and anxiety with bilateral head tremors No neurological symptoms and no headache Medications has been adjusted to control blood pressure JULIÁN Likely contributed by home and management Social service consulted (3) CAD (coronary artery disease): Plan: As above (4) Peripheral arterial disease: (5) Hyperlipidemia: Plan: HLD, PAD - cont. home meds DVT ppx: SCDs Code: DNR/DNI Admission and Anticipated Discharge Date Admission Date: February 05, 2022 Subjective 02/06/2022 The patient was seen and examined in medical telemetry unit He was admitted with left-sided chest pain and noted to have very high blood pressure on admission Denies any more chest pain since admission but complains to have feeling dizzy and jittery No headache and or blurred vision and no neurological symptoms Review of Systems Review of Systems: All systems reviewed and are unremarkable except as noted below Physical Exam Physical Exam: Lying in bed very anxious and with fine tremors of the hands Constitutional: well developed, well nourished, + ill appearing and + well hydrated Eyes: PERRL, conjunctivae normal, anicteric sclerae ENMT: external ear and nose normal, oropharynx normal Neck: trachea midline, no thyromegaly Respiratory: no respiratory distress Auscultation: lungs clear to auscultation bilaterally Cardiovascular: Rate/Rhythm: regular rate and regular rhythm; not tachycardic Heart Sounds: normal S1 and normal S2; no murmur Extremities: no edema Gastrointestinal (Abdomen): Inspection/Auscultation: normal bowel sounds; abdomen not distended Percussion/Palpation: abdomen soft; abdomen nontender Musculoskeletal: No acute arthritis in any joint Neurologic: Alert, awake and oriented x3. No focal sensory or no motor deficit appreciated Psychiatric: Mood: + anxious mood Lymphatic: no cervical or axillary lymphadenopathy Results & Data Results & Data ([facility]) Vital Signs (Past 12 Hours) Vital Signs Temp Pulse Pulse Resp BP BP Pulse Ox 02/06/22 11:08 36.8 C 59 L 18 178/96 H 96 02/06/22 09:10 55 L 182/85 H 02/06/22 08:30 60 202/100 H 02/06/22 07:16 61 02/06/22 06:03 59 L 189/95 H 02/06/22 04:00 36.6 C 60 18 201/101 H 95 O2 Del Method 02/06/22 11:08 Room Air 02/06/22 09:10 02/06/22 08:30 02/06/22 07:16 02/06/22 06:03 02/06/22 04:00 Room Air Laboratory Results Short CBC 02/06/22 Range/Units 05:32 WBC 5.74 (4.8-10.8) K/ul Hgb 14.1 (14.0-18.0) g/dl Hct 40.8 (40.1-51.0) % Plt Count 200 (130-400) K/uL BMP 02/05/22 02/06/22 14:46 05:32 Sodium 137 140 Potassium 4.0 4.0 Chloride 105 106 Carbon Dioxide 25 29 BUN 18 20 Creatinine 0.93 1.03 Glucose 152 H 110 H Calcium 9.2 8.9 Liver Function 02/05/22 Range/Units 14:46 Total Bilirubin 0.3 (0.2-1.0) mg/dl AST 14 (13-39) U/L ALT 11 (7-52) U/L Alkaline Phosphatase 88 (34-104) U/L Albumin 4.2 (3.4-5.0) gm/dl Medications Administered Current Inpatient Medications Acetaminophen (Acetaminophen 325 Mg Tab) 650 mg PO Q4H PRN PRN Reason: Pain or Fever Stop: 03/07/22 16:47 Aspirin (Aspirin 81 Mg Ectab) 81 mg PO DAILY [facility] Stop: 03/08/22 08:59 Last Admin: 02/06/22 08:41 Dose: 81 mg Citalopram Hydrobromide (Citalopram 20 Mg Tab) 10 mg PO DAILY [facility] Stop: 03/08/22 08:59 Last Admin: 02/06/22 08:41 Dose: 10 mg Docusate Sodium (Docusate Sodium 100 Mg Cap) 100 mg PO DAILY [facility] Stop: 03/08/22 08:59 Last Admin: 02/06/22 08:42 Dose: 100 mg Isosorbide Mononitrate (Isosorbide [place] Extended Rel 30 Mg Tabcr) 30 mg PO QAM [facility] Stop: 03/08/22 10:29 Last Admin: 02/06/22 10:58 Dose: 30 mg Lisinopril (Lisinopril 10 Mg Tab) 10 mg PO DAILY [facility] Stop: 03/08/22 08:59 Last Admin: 02/06/22 08:41 Dose: 10 mg Metoprolol Succinate (Metoprolol Succ 25mg Ext Rel Tab) 25 mg PO DAILY [facility] Stop: 03/08/22 08:59 Last Admin: 02/06/22 08:42 Dose: 25 mg
[2022-02-06] MEDS: NITROGLYCERIN 2% OINTMENT 30GM TUBE EXT SCH (22:44)
[2022-02-07] MEDS: NITROGLYCERIN 2% OINTMENT 30GM TUBE EXT SCH ×4 (05:27→21:37)
[2022-02-07] MEDS: lisinopril 10 MG TAB PO SCH (08:00)
[2022-02-07] MEDS: ASPIRIN 81 MG ECTAB PO SCH (08:00)
[2022-02-07] MEDS: DOCUSATE SODIUM 100 MG CAP PO SCH (08:00)
[2022-02-07] MEDS: ISOSORBIDE MONO EXTENDED REL 30 MG TABCR PO SCH (08:01)
[2022-02-07] MEDS: METOPROLOL SUCC 25MG EXT REL TAB PO SCH (08:01)
[2022-02-07] MEDS ORDERED: lisinopril 10 MG TAB PO STA (08:26)
[2022-02-07] MEDS: CITALOPRAM 20 MG TAB PO SCH (10:09)
--- NOTE | 2022-02-07 14:36 | Hospitalist Progress Note ---
Date of Service February 07, 2022 Assessment & Plan (1) Left-sided chest pain: Plan: Pt with hx of CAD w/ chronic occlusion of proximal LAD with right to left collaterals and 50% diffuse mid RCA stenosis with preserved LV systolic function -follows w/ cardiology Dr. Pringle -Now presents with left-sided chest pressure that started 2 days ago -Associated shortness of breath, nausea, lightheadedness -Improved with nitro and rest -EKG in the ED without significant changes, troponin negative -Nitropaste in the ED -Serial troponins are unremarkable for any ACS -Remains free from any chest pain and/or palpitation -Appreciate cardiology input and recommendation -No more chest pain and no palpitation -Echo of the heart showed: No significant change compared with previous study from 2018. Normal LV chamber size and wall thickness, normal LV systolic function with EF of 60 to 65%, no segmental left ventricular wall motion abnormalities, grade 1 diastolic dysfunction, aortic valve sclerosis moderate without significant aortic stenosis (2) Hypertension: Plan: Presented with hypertensive urgency With the blood pressure noted to be as high as 235/150 Likely the cause for chest pain and anxiety with bilateral head tremors No neurological symptoms and no headache Medications has been adjusted to control blood pressure Blood pressure seems to be improving with current medications JULIÁN Likely contributed by home and management Social service consulted (3) CAD (coronary artery disease): Plan: As above (4) Peripheral arterial disease: (5) Hyperlipidemia: Plan: HLD, PAD - cont. home meds DVT ppx: SCDs Code: DNR/DNI Awaiting PT and OT evaluation and catalytic case operator evaluation prior to discharge Admission and Anticipated Discharge Date Admission Date: February 05, 2022 Subjective 02/06/2022 The patient was seen and examined in medical telemetry unit He was admitted with left-sided chest pain and noted to have very high blood pressure on admission Denies any more chest pain since admission but complains to have feeling dizzy and jittery No headache and or blurred vision and no neurological symptoms 02/07/2022 The patient was seen and examined in medical telemetry unit He has been much better today and denies any significant symptoms He does have adverse home situation which is making him very anxious and that may be the reason that his blood pressure goes too high He wants to go home Review of Systems Review of Systems: All systems reviewed and are unremarkable except as noted below Physical Exam Physical Exam: Lying in bed without any acute distress Constitutional: well developed, well nourished and + well hydrated; not ill appearing Eyes: PERRL, conjunctivae normal, anicteric sclerae ENMT: external ear and nose normal, oropharynx normal Neck: trachea midline, no thyromegaly Respiratory: no respiratory distress Auscultation: lungs clear to auscultation bilaterally Cardiovascular: Rate/Rhythm: regular rate and regular rhythm; not tachycardic Heart Sounds: normal S1 and normal S2; no murmur Extremities: no edema Gastrointestinal (Abdomen): Inspection/Auscultation: normal bowel sounds; abdomen not distended Percussion/Palpation: abdomen soft; abdomen nontender Musculoskeletal: No acute arthritis in any joint Neurologic: Alert awake and oriented x3. Denies any tremors and or anxiety Psychiatric: Mood: + anxious mood Lymphatic: no cervical or axillary lymphadenopathy Results & Data Results & Data ([facility]) Vital Signs (Past 12 Hours) Vital Signs Temp Pulse Pulse Resp BP Pulse Ox O2 Del Method 02/07/22 12:06 36.5 C 54 L 16 157/78 H 97 02/07/22 09:35 37.0 C 55 L 17 155/82 H 97 02/07/22 07:31 50 L 02/07/22 03:13 36.5 C 53 L 18 150/81 H 94 Room Air Medications Administered Current Inpatient Medications Acetaminophen (Acetaminophen 325 Mg Tab) 650 mg PO Q4H PRN PRN Reason: Pain or Fever Stop: 03/07/22 16:47 Aspirin (Aspirin 81 Mg Ectab) 81 mg PO DAILY [facility] Stop: 03/08/22 08:59 Last Admin: 02/07/22 08:00 Dose: 81 mg Citalopram Hydrobromide (Citalopram 20 Mg Tab) 10 mg PO DAILY [facility] Stop: 03/08/22 08:59 Last Admin: 02/07/22 10:09 Dose: 10 mg Docusate Sodium (Docusate Sodium 100 Mg Cap) 100 mg PO DAILY [facility] Stop: 03/08/22 08:59 Last Admin: 02/07/22 08:00 Dose: 100 mg Isosorbide Mononitrate (Isosorbide [facility] Extended Rel 30 Mg Tabcr) 30 mg PO QAM [facility] Stop: 03/08/22 10:29 Last Admin: 02/07/22 08:01 Dose: 30 mg Lisinopril (Lisinopril 40 Mg Tab) 40 mg PO DAILY [facility] Stop: 03/10/22 08:59 Metoprolol Succinate (Metoprolol Succ 25mg Ext Rel Tab) 25 mg PO DAILY [facility] Stop: 03/08/22 08:59 Last Admin: 02/07/22 08:01 Dose: 25 mg Nitroglycerin (Nitroglycerin 2% Ointment 30gm Tube) 0.5 inch EXT Q6H [facility] Stop: 03/08/22 22:29 Last Admin: 02/07/22 11:21 Dose: Not Given
--- NOTE | 2022-02-07 22:05 | Cardiology Progress Note ---
Date of Service February 07, 2022 Assessment & Plan (1) Left-sided chest pain: (2) Hypertensive urgency: (3) CAD (coronary artery disease): (4) Hyperlipidemia: (5) Depression: (6) Anxiety: Plan BP improved but not yet at goal cont amlodipine 10 mg po daily increase lisinopril to 40 mg po daily echo unchanged without new wall motion abnormality very significant stressors at home, have asked case management for their expertise Admission and Anticipated Discharge Date Admission Date: February 07, 2022 Results & Data ([facility]) Vital Signs (Past 12 Hours) Vital Signs Temp Pulse Pulse Resp BP Pulse Ox O2 Del Method 02/07/22 19:00 36.4 C L 54 L 20 152/79 H 97 Room Air 02/07/22 16:30 55 L 02/07/22 14:55 36.4 C L 57 L 18 170/83 H 95 Room Air 02/07/22 12:06 36.5 C 54 L 16 157/78 H 97
[2022-02-07] MEDS ORDERED: hydrALAZINE HCL 25 MG TAB PO STA (23:53)
[2022-02-08 07:54] LABS: BUN Creatinine Ratio 18.9 (10-20); Creatinine Clr Calc Pharmacy 64.3 ml/min; Est GFR (African American) 89.1 ml/min; Est GFR (Non-African American) 76.9 ml/min
[2022-02-08] MEDS: ISOSORBIDE MONO EXTENDED REL 30 MG TABCR PO SCH (08:03)
[2022-02-08] MEDS: ASPIRIN 81 MG ECTAB PO SCH (08:03)
[2022-02-08] MEDS: METOPROLOL SUCC 25MG EXT REL TAB PO SCH (08:04)
[2022-02-08] MEDS: CITALOPRAM 20 MG TAB PO SCH (08:04)
[2022-02-08] MEDS: DOCUSATE SODIUM 100 MG CAP PO SCH (08:04)
[2022-02-08] MEDS ORDERED: TERAZOSIN HCL 1 MG CAP PO ONE (08:45)
[2022-02-08] MEDS ORDERED: amLODIPine BESYLATE 5 MG TAB PO SCH (09:00)
[2022-02-08] MEDS ORDERED: lisinopril 40 MG TAB PO SCH (09:00)
--- NOTE | 2022-02-08 12:15 | Cardiology Progress Note ---
Date of Service February 08, 2022 Assessment & Plan (1) Left-sided chest pain: (2) Hypertensive urgency: (3) CAD (coronary artery disease): (4) Hyperlipidemia: (5) Depression: (6) Anxiety: Plan BP now controlled. Would discharge home on current regimen. Follow-up with PCP in 1 week for blood pressure check. Okay to DC to home from cardiac standpoint. very significant stressors at home, have asked case management for their expertise Admission and Anticipated Discharge Date Admission Date: February 07, 2022 Subjective Patient seen and examined. Chart reviewed. Telemetry reviewed. Currently without complaint at rest. Review of Systems Review of Systems: All systems reviewed & are unremarkable except as noted in HPI & below Physical Exam Physical Exam: General: Awake, alert and oriented x 3. No acute distress. HEENT: Normocephalic, atraumatic. Pupils equal, round and reactive to light and accommodation. Extraocular muscles are intact. Anicteric sclera. Moist mucous membranes. Neck: No JVD. No bruit. Cardiovascular: Regular. Positive S-4. Normal S-1 and S-2. No S-3. 3/6 mid to late systolic ejection murmur, greatest at the right sternal border, second intercostal space with radiation to the bilateral carotids. No rubs. Pulmonary: Clear to auscultation bilaterally. No rales, rhonchi, or wheezing. Abdomen: Bowel sounds x 4, soft. No rebound, guarding or tenderness. No organomegaly. Extremities: No clubbing, cyanosis or edema. +2 pedal pulses bilaterally. Skin: Warm and dry. Results & Data ([facility]) Vital Signs (Past 12 Hours) Vital Signs Temp Pulse Resp BP Pulse Ox O2 Del Method 02/08/22 10:58 36.5 C 55 L 16 126/70 95 Room Air 02/08/22 09:42 Room Air 02/08/22 07:59 60 165/104 H Room Air 02/08/22 07:00 36.7 C 51 L 20 152/75 H 94 Room Air 02/08/22 04:00 36.3 C L 50 L 20 152/80 H 97 Room Air
--- NOTE | 2022-02-08 13:11 | Hospitalist Progress Note ---
Date of Service February 08, 2022 Assessment & Plan (1) Left-sided chest pain: Plan: Pt with hx of CAD w/ chronic occlusion of proximal LAD with right to left collaterals and 50% diffuse mid RCA stenosis with preserved LV systolic function -follows w/ cardiology Dr. Pringle -Now presents with left-sided chest pressure that started 2 days ago -Associated shortness of breath, nausea, lightheadedness -Improved with nitro and rest -EKG in the ED without significant changes, troponin negative -Nitropaste in the ED -Serial troponins are unremarkable for any ACS -Remains free from any chest pain and/or palpitation -Appreciate cardiology input and recommendation -No more chest pain and no palpitation -Echo of the heart showed: No significant change compared with previous study from 2018. Normal LV chamber size and wall thickness, normal LV systolic function with EF of 60 to 65%, no segmental left ventricular wall motion abnormalities, grade 1 diastolic dysfunction, aortic valve sclerosis moderate without significant aortic stenosis -Remains stable without any chest pain (2) Hypertension: Plan: Presented with hypertensive urgency With the blood pressure noted to be as high as 235/150 Likely the cause for chest pain and anxiety with bilateral head tremors No neurological symptoms and no headache Medications has been adjusted to control blood pressure Blood pressure seems to be improving with current medications Blood pressure is controlled with current medication Will be discharged home this afternoon Strongly advised to reduce stressors as discussed JULIÁN Likely contributed by home and management Social service consulted (3) CAD (coronary artery disease): Plan: As above (4) Peripheral arterial disease: (5) Hyperlipidemia: Plan: HLD, PAD - cont. home meds DVT ppx: SCDs Code: DNR/DNI Awaiting PT and OT evaluation and rn case mgr evaluation prior to discharge Will be discharged home this afternoon Admission and Anticipated Discharge Date Admission Date: February 07, 2022 Subjective 02/06/2022 The patient was seen and examined in medical telemetry unit He was admitted with left-sided chest pain and noted to have very high blood pressure on admission Denies any more chest pain since admission but complains to have feeling dizzy and jittery No headache and or blurred vision and no neurological symptoms 02/07/2022 The patient was seen and examined in medical telemetry unit He has been much better today and denies any significant symptoms He does have adverse home situation which is making him very anxious and that may be the reason that his blood pressure goes too high He wants to go home 02/08/2022 The patient was seen and examined in medical telemetry unit He has been feeling much better and the blood pressure seems to be controlled Blood pressure goes off with anxiety and he was strongly advised to stay calm and take rest in case of any anxiety attack Denies any cardiac symptoms Review of Systems Review of Systems: All systems reviewed and are unremarkable except as noted below Physical Exam Physical Exam: Sitting at the edge of the bed without any acute distress Constitutional: well developed, well nourished and + well hydrated; not ill appearing Eyes: PERRL, conjunctivae normal, anicteric sclerae ENMT: external ear and nose normal, oropharynx normal Neck: trachea midline, no thyromegaly Respiratory: no respiratory distress Auscultation: lungs clear to auscultation bilaterally Cardiovascular: Rate/Rhythm: regular rate and regular rhythm; not tachycardic Heart Sounds: normal S1 and normal S2; no murmur Extremities: no edema Gastrointestinal (Abdomen): Inspection/Auscultation: normal bowel sounds; abdomen not distended Percussion/Palpation: abdomen soft; abdomen nontender Musculoskeletal: No acute arthritis in any joint Neurologic: normal touch/pain/proprioception and moves all extremities; no focal motor deficits Psychiatric: Mood: + anxious mood Lymphatic: no cervical or axillary lymphadenopathy Results & Data Results & Data ([facility]) Vital Signs (Past 12 Hours) Vital Signs Temp Pulse Pulse Resp BP BP Pulse Ox 02/08/22 12:44 36.5 C 55 L 16 126/70 178/96 H 95 02/08/22 12:29 50 L 02/08/22 10:58 36.5 C 55 L 16 126/70 95 02/08/22 09:42 02/08/22 07:59 60 165/104 H 02/08/22 07:00 36.7 C 51 L 20 152/75 H 94 02/08/22 04:00 36.3 C L 50 L 20 152/80 H 97 O2 Del Method 02/08/22 12:44 02/08/22 12:29 02/08/22 10:58 Room Air 02/08/22 09:42 Room Air 02/08/22 07:59 Room Air 02/08/22 07:00 Room Air 02/08/22 04:00 Room Air Laboratory Results [facility] 02/08/22 07:01 Sodium 136 Potassium 4.0 Chloride 104 Carbon Dioxide 26 BUN 18 Creatinine 0.95 Glucose 115 H Calcium 9.0 Medications Administered Current Inpatient Medications Acetaminophen (Acetaminophen 325 Mg Tab) 650 mg PO Q4H PRN PRN Reason: Pain or Fever Stop: 03/07/22 16:47 Amlodipine Besylate (Amlodipine Besylate 5 Mg Tab) 10 mg PO QAM [facility] Stop: 03/10/22 08:59 Last Admin: 02/08/22 09:19 Dose: 10 mg Aspirin (Aspirin 81 Mg Ectab) 81 mg PO DAILY [facility] Stop: 03/08/22 08:59 Last Admin: 02/08/22 08:03 Dose: 81 mg Citalopram Hydrobromide (Citalopram 20 Mg Tab) 10 mg PO DAILY [facility] Stop: 03/08/22 08:59 Last Admin: 02/08/22 08:04 Dose: 10 mg Docusate Sodium (Docusate Sodium 100 Mg Cap) 100 mg PO DAILY [facility] Stop: 03/08/22 08:59 Last Admin: 02/08/22 08:04 Dose: 100 mg Isosorbide Mononitrate (Isosorbide [facility] Extended Rel 30 Mg Tabcr) [facility] Stop: 03/08/22 10:29 Last Admin: 02/08/22 08:03 Dose: 30 mg Lisinopril (Lisinopril 40 Mg Tab) 40 mg PO DAILY [facility] Stop: 03/10/22 08:59 Last Admin: 02/08/22 08:05 Dose: 40 mg Metoprolol Succinate (Metoprolol Succ 25mg Ext Rel Tab) 25 mg PO DAILY [facility] Stop: 03/08/22 08:59 Last Admin: 02/08/22 08:04 Dose: Not Given
--- NOTE | 2022-02-09 07:20 | Discharge Summary ---
Date of Service February 08, 2022 Admission HPI Per Admitting Provider Patient is a 77-year-old male with history of hypertension, hyperlipidemia, prediabetes, peripheral artery disease, carotid stenosis, COPD, CAD who presents with chest pain. Patient reports that he experienced left-sided chest pressure on Sunday evening, at that time it took nitro x2. Reports he usually does not take nitro. After second pill he was able to fall asleep. On Sunday he was not feeling himself and spent most of the day laying down. He felt left-sided chest pressure with any minimal exertion. He also reports having associated symptoms such as shortness of breath, nausea and feeling lightheaded. Currently in the ER, patient reports feeling okay while he is sitting up in bed. Denies any chest pain. Denies any shortness of breath, nausea, as a matter of fact he is hungry and is asking for dinner. Denies any diaphoresis abdominal pain, dizziness or lightheadedness. In ED, EKG without any significant changes. Troponin negative. Due to elevated blood pressure, and patient's symptoms, Nitropaste was given. Admission Exam Per Admitting Provider Constitutional: WD/WN, vitals as above Eyes: PERRL, conjunctivae normal, anicteric sclerae ENMT: external ear and nose normal, oropharynx normal Neck: trachea midline, no thyromegaly Respiratory: normal respiratory effort, lungs clear to auscultation Cardiovascular: RRR, no murmur, no edema Chest (Breasts): Chest: normal inspection of chest Gastrointestinal (Abdomen): normal bowel sounds, soft, nontender, no hepatosplenomegaly Musculoskeletal: no cyanosis or clubbing, extremities motor strength 5/5 Skin: no rashes, warm and dry Neurologic: PERRL, EOMI, accommodation nl, no face palsy, no dysarthria Psychiatric: A+Ox3, euthymic affect Genitourinary: no CVA tenderness Lymphatic: no lymphedema Principal Diagnosis Left-sided chest pain-no ACS, hypertensive urgency, JULIÁN Discharge Exam Sitting at the edge of the bed without any acute distress Constitutional well developed, well nourished and + well hydrated; not ill appearing Eyes PERRL, conjunctivae normal, anicteric sclerae ENMT external ear and nose normal, oropharynx normal Neck trachea midline, no thyromegaly Respiratory no respiratory distress Auscultation: lungs clear to auscultation bilaterally Cardiovascular Rate/Rhythm: regular rate and regular rhythm; not tachycardic Heart Sounds: normal S1 and normal S2; no murmur Extremities: no edema Gastrointestinal (Abdomen) Inspection/Auscultation: normal bowel sounds; abdomen not distended Percussion/Palpation: abdomen soft; abdomen nontender Neurologic normal touch/pain/proprioception and moves all extremities; no focal motor deficits Psychiatric Mood: + anxious mood Lymphatic no cervical or axillary lymphadenopathy Discharge Data Allergies Allergy/AdvReac Type Severity Reaction Status Date / Time atorvastatin Allergy Unknown MUSCLE PAIN Verified 02/05/22 18:46 bee venom protein (honey bee) Allergy Unknown SWELLING Unverified 02/05/22 18:46 Consultations 02/05/22 16:41 ED Decision to Admit Stat 02/05/22 17:39 Consult Cardiology Routine Hospital Course (1) Left-sided chest pain: Pt with hx of CAD w/ chronic occlusion of proximal LAD with right to left co llaterals and 50% diffuse mid RCA stenosis with preserved LV systolic function -follows w/ cardiology Dr. Pringle -Now presents with left-sided chest pressure that started 2 days ago -Associated shortness of breath, nausea, lightheadedness -Improved with nitro and rest -EKG in the ED without significant changes, troponin negative -Nitropaste in the ED -Serial troponins are unremarkable for any ACS -Remains free from any chest pain and/or palpitation -Appreciate cardiology input and recommendation -No more chest pain and no palpitation -Echo of the heart showed: No significant change compared with previous study from 2018. Normal LV chamber size and wall thickness, normal LV systolic function with EF of 60 to 65%, no segmental left ventricular wall motion abnormalities, grade 1 diastolic dysfunction, aortic valve sclerosis moderate without significant aortic stenosis -Remains stable without any chest pain (2) Hypertension: Presented with hypertensive urgency With the blood pressure noted to be as high as 235/150 Likely the cause for chest pain and anxiety with bilateral head tremors No neurological symptoms and no headache Medications has been adjusted to control blood pressure Blood pressure seems to be improving with current medications Blood pressure is controlled with current medication Will be discharged home this afternoon Strongly advised to reduce stressors as discussed JULIÁN Likely contributed by home and management Social service consulted (3) CAD (coronary artery disease): As above (4) Peripheral arterial disease: (5) Hyperlipidemia: HLD, PAD - cont. home meds DVT ppx: SCDs Code: DNR/DNI Awaiting PT and OT evaluation and field case manager evaluation prior to discharge Will be discharged home this afternoon Total Time Total Time Spent Total Time Spent (In Minutes): 35 minutes Discharge Plan Discharge Items Patient Disposition: Home - Self-Care Reason For Visit: CHEST PAIN Discharge Diagnosis: Left-sided chest pain-no ACS, hypertensive urgency, JULIÁN Condition on Discharge: Fair Activity: Resume your previous activity Non-emergency contact: Primary Care Provider Call non-emergency contact if: you have any medication questions and your symptoms worsen Follow-up/Referrals: Kaz Robledo MD [Primary Care Provider] - 02/15/22 11:20 am Diet: Heart Healthy Addtl Attending Provider Instructions: Please take precautions to avoid falls Try to take your medications as advised- Your lisinopril has been increased to 40 mg once a day and amlodipine 10 mg added to control your blood pressure Try to avoid any stressors as discussed Keep appointments with your healthcare providers Pending Studies at Discharge: No Stand-Alone Forms: My [facility] [employer], Smoking Cessation Medications and DC Order Prescriptions: New lisinopril [Zestril] 40 mg Tablet 40 mg PO DAILY Qty: 30 0RF amlodipine [Norvasc] 5 mg Tablet 10 mg PO QAM Qty: 30 0RF Continued citalopram 20 mg Tablet 10 mg PO DAILY Qty: 0 Rx Instructions: PT TAKES ONE-HALF TABLET DAILY calcium carbonate [Calcium 500] 500 mg calcium (1,250 mg) Tablet 500 mg PO DAILY Qty: 0 nitroglycerin [Nitrostat] 0.4 mg Tablet, Sublingual 0.4 mg sublingual UD Qty: 0 multivitamin Tablet 1 tab PO DAILY Qty: 0 cilostazol 100 mg Tablet 100 mg PO BID Qty: 0 aspirin [Pollo Low Dose Aspirin] 81 mg Tablet,Delayed Release (Dr/Ec) 81 mg PO DAILY 90 Days Qty: 90 albuterol sulfate [Ventolin HFA] 90 mcg/actuation Hfa Aerosol Inhaler 2 puff INHALATION Q6H PRN (Reason: Shortness Of Breath) Qty: 1 clonazepam [Klonopin] 0.5 mg tablet 0.5 - 1 mg PO HS PRN (Reason: sleep) Qty: 0 coenzyme Q10 [Co Q-10] 400 mg capsule 400 mg PO DAILY docusate sodium 100 mg capsule 100 mg PO DAILY PRN (Reason: Constipation) fluticasone propionate 50 mcg/actuation spray,suspension 2 sprays INTNAS DAILY folic acid 400 mcg tablet 0.4 mg PO DAILY metoprolol succinate 25 mg tablet extended release 24 hr 25 mg PO DAILY Repatha Pushtronex 420 mg/3.5 mL wearable injector 420 mg SQ MONTHLY ketoconazole 2 % cream 1 appln TOP UD Rx Instructions: APPLY TO FACE 2-3 TIMES PER WEEK fluocinonide 0.05 % cream 1 appln TOP UD PRN (Reason: itching) Rx Instructions: APPLY TO SCALP SUN- ketoconazole 2 % shampoo 1 appln TOPICAL UD Rx Instructions: APPLY TO SCALP 2-3 TIMES PER WEEK diclofenac sodium 1 % gel 4 g TOPICAL UD PRN (Reason: pain) Rx Instructions: 4 GRAMS ON LEFT KNEE 4 TIMES A DAY polyethylene glycol 3350 [Miralax] 17 gram Powder In Packet 17 g PO Q OTHER DAY isosorbide mononitrate 30 mg tablet extended release 24 hr 30 mg PO QAM cholecalciferol (vitamin D3) [Vitamin D3] 25 mcg (1,000 unit) Tablet 25 mcg PO Q OTHER DAY Linzess 290 mcg capsule 290 mcg PO QAM PRN (Reason: Constipation) Discontinued lisinopril 10 mg tablet 10 mg PO DAILY Discharge Orders: Discharge Order (Routine); Ordered 02/08/22 Ordered By: Dylon Casey/Other Patient Handouts: Taking Amlodipine Admission Data Admit Date/Time: 02/07/22 18:01 Attending Provider: Dylon Morse Admit Provider: Saúl Olson Primary Care Provider: Kaz Robledo Other Providers: Saúl Olson ; Rogerio Pringle Other Interventions: Discharge Summary Assessment (RN) Last Done: 02/08/22 12:44
== END 2022-02-08 15:29 | disposition home or self-care (01) ==
LOC: 2W 14:28 → ED 14:28 → SUATTDRO 16:46 → 2W 20:55
DX: Z79.899 Other long term (current) drug therapy; I25.10 Atherosclerotic heart disease of native coronary artery without angina pectoris; R07.9 Chest pain, unspecified; Z91.030 Bee allergy status; I16.0 Hypertensive urgency; E78.5 Hyperlipidemia, unspecified; Z79.82 Long term (current) use of aspirin; I73.9 Peripheral vascular disease, unspecified; Z88.8 Allergy status to other drugs, medicaments and biological substances

== ENCOUNTER 2023-10-18 09:28 | Inpatient (IN) ==
[2023-10-18] MEDS: ALUMINUM/MAGNESIUM SUSP 30 ML UDC PO STA (09:59)
[2023-10-18] MEDS: ASPIRIN CHEW 324 MG PO STA (09:59)
[2023-10-18] MEDS: ONDANSETRON INJ 2 MG/ML 2 ML VIAL IV STA (09:59)
[2023-10-18] MEDS: PANTOprazole 40 MG TAB PO STA (09:59)
--- NOTE | 2023-10-18 10:07 | Emergency Department Note ---
Impression & Plan Chest pain, Elevated troponin I level ED Provider Note NAME: BECKY MCCANN AGE: 78 SEX: M : 1945 ARRIVES VIA: Walk-In INFORMANT: Patient, ED PROVIDER(S): Van Minor DO CHIEF COMPLAINT: Chest pain HPI: The patient is a 78-year-the patient is a 78-year-old male who presented to the emergency department for an evaluation of heartburn. The patient described a burning sensation in his upper chest and into his neck. The patient called old male who presented to the emergency department for an evaluation of heartburn. The patient noticed anterior upper chest pain that he described as heartburn that began at 4:00 this morning. He called the nursing hotline and was referred to the emergency department for further evaluation. The patient denies having any shortness of breath. He denies having any abdominal pain or back pain. The patient has no history of similar episodes in the past. He denies having any leg swelling. He states has been compliant with his outpatient medication. Patient noticed some dark stools. ROS: See above HPI for pertinent positives & negatives. A total of 10 systems reviewed and were otherwise negative. PAST MEDICAL HISTORY: See Below PAST SURGICAL HISTORY: See Below FAMILY HISTORY: See Below SOCIAL HISTORY: See Below HOME MEDICATIONS: See Below ALLERGIES: See Below VITALS: See Below PHYSICAL EXAMINATION: GENERAL: Patient is awake alert in no acute distress patient is resting comfortably and showing no signs of anxiety EYES: The conjunctivae are clear. The pupils are round and reactive. EARS, NOSE, MOUTH AND THROAT: The nose is without any evidence of any deformity. NECK: The neck is nontender and supple. RESPIRATORY: Normal respiratory effort is noted there is no evidence of wheezing rhonchi or rales CARDIOVASCULAR: Regular rate and rhythm noted there no murmurs rubs or gallops normal S1 normal S2. GASTROINTESTINAL: The abdomen is soft. Abdomen is nontender. MUSCULOSKELETAL/EXTREMITIES: There is no evidence of gross deformity full range of motion is noted in the hips and shoulders. SKIN: Trace pedal edema was noted bilaterally NEUROLOGIC: Patient is awake alert and oriented x3 MEDICAL DECISION MAKING: The patient is a 78-year-old male who presented to the emergency department at the request of his primary care physician for an evaluation of discomfort in his chest. The patient describes a burning sensation in his upper chest as well as his neck. He described it as heartburn. The patient was treated with aspirin in the emergency department as well as medication for GI upset. EKG showed no acute ischemic changes from previous but his cardiac biomarker was positive. Given these findings as well as patient's comorbidities I do feel that he may require further inpatient management. I discussed patient's condition with the on-call [facility] hospitalist. They have agreed to evaluate the patient in the emergency department for further management and disposition. Patient's pain was improved on reevaluation. Triage Nursing notes reviewed. Prior medical records reviewed Vital Signs: reviewed and remarkable for hypertension and bradycardia. Differential diagnosis: Cardiac ischemia, aortic dissection, pulmonary embolism, pneumothorax, pneumonia, pericarditis, myocarditis, esophageal rupture, GERD, cholecystitis, pancreatitis, musculoskeletal, as well as other pathologies. ER treatment provided: See below Diagnostics interpreted by me: ECG: EKG was obtained in the emergency department. My interpretation is normal sinus rhythm at 62 bpm. LVH was suggested by voltage criteria. There was no acute ST segment abnormalities noted. This was compared to a tracing from January 17, 2023. No changes were noted Cardiac Monitoring: An order was placed for continuous cardiac monitoring. The monitor shows a rate of 54 bpm with sinus bradycardia. Laboratory studies: As stated above and show below. Imaging studies: See below. Radiographic imaging was reviewed by myself Consultation(s): I discussed this case [facility]. Past Med/Surg History Problem List (Updated 10/18/23 @ 12:20 by Jennifer Noel PA-C) Parkinson's disease Elevated troponin I level (Acute) Chest pain (Acute) Anxiety Depression Hyperlipidemia CAD (coronary artery disease) Peripheral arterial disease Hypertension (Chronic) Medical History (Updated 10/18/23 @ 12:20 by Jennifer Noel PA-C) Atrial flutter Inguinal hernia Surgical History (Updated 10/18/23 @ 11:48 by Jennifer Noel PA-C) S/P tonsillectomy Family History (Updated 10/18/23 @ 11:49 by Jennifer Noel PA-C) Other Asthma Denies family history of Hypertension Social History Smoking Status: Never smoker Tobacco Type: Cigarettes Hx Alcohol Use: No Hx Substance Use: No Preferred Language: Icelandic Communication Ability: Effective Informaticist Required: No Beliefs That Will Affect Care: None Current Living Situation: Alone Feels Safe at Home: Yes Assistive Devices: Cane Allergies Allergies Allergy/AdvReac Type Severity Reaction Status Date / Time bee venom protein (honey bee) Allergy Severe SWELLING, Verified 01/17/23 18:59 INTENSE ITCHING, HIVES atorvastatin AdvReac Intermediate MUSCLE PAIN Verified 01/17/23 18:59 Home Meds Home Medications Medication Instructions Recorded Confirmed nitroglycerin 0.4 mg sublingual 0.4 mg sublingual DIRECTED PRN 01/17/13 10/18/23 tablet (Nitrostat) Chest Pain #0 BTLS multivitamin 1 tab PO DAILY #0 tabs 09/20/14 10/18/23 aspirin 81 mg tablet,delayed 81 mg PO DAILY 90 days #90 tabs 04/19/17 10/18/23 release (Pollo Low Dose Aspirin) cilostazol 100 mg tablet 100 mg PO BID #0 tabs 04/19/17 10/18/23 coenzyme Q10 400 mg capsule (Co 400 mg PO DAILY 05/15/19 10/18/23 Q-10) docusate sodium 100 mg capsule 100 mg PO DAILY PRN Constipation 05/15/19 10/18/23 folic acid 400 mcg tablet 0.4 mg PO DAILY 05/15/19 10/18/23 metoprolol succinate 25 mg 25 mg PO DAILY 05/15/19 10/18/23 tablet,extended release 24 hr clonazepam 0.5 mg tablet (Klonopin) 0.5 - 1 mg PO HS PRN sleep #0 tabs 11/25/19 10/18/23 diclofenac sodium 1 % topical gel 4 g topical UD PRN pain 11/25/19 10/18/23 evolocumab 420 mg/3.5 mL 420 mg subcut MONTHLY 11/25/19 10/18/23 subcutaneous wearable injector (Repatha Pushtronex) fluocinonide 0.05 % topical cream 1 appln topical UD PRN itching 11/25/19 10/18/23 ketoconazole 2 % shampoo 1 appln topical UD 11/25/19 10/18/23 ketoconazole 2 % topical cream 1 appln topical UD 11/25/19 10/18/23 cholecalciferol (vitamin D3) 25 25 mcg PO Q OTHER DAY 02/05/22 10/18/23 mcg (1,000 unit) tablet (Vitamin D3) isosorbide mononitrate 30 mg 30 mg PO QAM 02/05/22 10/18/23 tablet,extended release 24 hr polyethylene glycol 3350 17 gram 17 g PO DIRECTED 02/05/22 10/18/23 oral powder packet (Miralax) calcium carbonate 500 mg PO DAILY 04/24/22 10/18/23 amlodipine 10 mg tablet 10 mg PO DAILY 12/14/22 10/18/23 citalopram 20 mg tablet 20 mg PO DAILY #0 tabs 12/14/22 10/18/23 terazosin 1 mg capsule 1 mg PO HS 12/14/22 10/18/23 triamcinolone acetonide 0.1 % 1 applic topical DAILY 12/14/22 10/18/23 topical cream apixaban 5 mg tablet (Eliquis) 5 mg PO BID 10/18/23 10/18/23 Previous Rx's Medication Instructions Recorded lisinopril 40 mg tablet (Zestril) 40 mg PO DAILY #30 tabs 02/08/22 Results & Data (ED) Vital Signs Vital Signs - 24 hr 10/18/23 09:28 10/18/23 09:31 10/18/23 09:49 Temperature 36.8 C Temperature Source Temporal Artery Scan Pulse Rate 64 Pulse Rate [Apical] 57 L Respiratory Rate 16 16 Respiratory Effort / Characteristics Non-Labored Respiratory Depth Normal Blood Pressure 158/107 H Blood Pressure Mean 124 Pulse Oximetry 98 97 96 Oxygen Delivery Method Room Air Sepsis Recent Fever Within 48 Hours No Sepsis New/Unexplained Change in Mental Status No Sepsis Action Taken by Nursing No Action Required 10/18/23 10:15 10/18/23 11:24 10/18/23 11:32 Temperature Temperature Source Pulse Rate 49 L 58 L Pulse Rate [Apical] Respiratory Rate 19 Respiratory Effort / Characteristics Respiratory Depth Blood Pressure 157/97 H Blood Pressure Mean 117 Pulse Oximetry Oxygen Delivery Method Sepsis Recent Fever Within 48 Hours Sepsis New/Unexplained Change in Mental Status Sepsis Action Taken by Nursing 10/18/23 11:33 Temperature Temperature Source Pulse Rate 54 L Pulse Rate [Apical] Respiratory Rate 14 Respiratory Effort / Characteristics Respiratory Depth Blood Pressure Blood Pressure Mean Pulse Oximetry Oxygen Delivery Method Sepsis Recent Fever Within 48 Hours Sepsis New/Unexplained Change in Mental Status Sepsis Action Taken by Skilled Nursing Medications Current Medication List: was personally reviewed by me Laboratory Data Attestation: I reviewed the patient's lab results. 10/18/23 09:48 10/18/23 09:48 Lab Results 10/18/23 10/18/23 Range/Units 09:48 11:53 WBC 8.71 (4.8-10.8) K/ul RBC 5.01 (4.70-6.10) M/uL Hgb 15.6 (14.0-18.0) g/dl Hct 45.5 (42.0-52.0) % MCV 90.8 (80.0-100.0) fL MCH 31.1 (25.0-34.0) pg MCHC 34.3 (32.0-36.0) g/dL RDW Std Deviation 40.8 (36.4-46.3) fL RDW Coeff of Lanre 12.2 (11.5-14.5) % Plt Count 223 (130-400) K/uL MPV 10.5 (9.4-12.4) fL Immature Gran % (Auto) 0.3 % Neut % (Auto) 74.5 % Lymph % (Auto) 14.5 % [place] % (Auto) 6.7 % Eos % (Auto) 3.2 % Baso % (Auto) 0.8 % Neut # (Auto) 6.49 (1.40-6.50) K/uL Lymph # (Auto) 1.26 (1.20-3.40) K/uL [place] # (Auto) 0.58 (0.11-0.59) K/uL Eos # (Auto) 0.28 (0.00-0.50) K/uL Baso # (Auto) 0.07 (0.00-0.20) K/uL Immature Gran # (Auto) 0.03 (0.01-0.20) K/uL PT 10.3 (9.0-12.0) Seconds INR 0.9 (0.9-1.1) APTT 35 H (21-31) Seconds PTT Ratio 1.3 Sodium 138 (136-145) mmol/L Potassium 4.2 (3.5-5.1) mmol/L Chloride 105 (98-107) mmol/L Carbon Dioxide 29 (21-32) mmol/L Anion Gap 4 (3-11) BUN 21 (6-23) mg/dl Creatinine 1.14 (0.6-1.4) mg/dl Est Cr Clr Drug Dosing 61.8 ml/min Est GFR ( Amer) 71.0 ml/min Est GFR (Non-Af Amer) 61.3 ml/min BUN/Creatinine Ratio 18.4 (10-20) Glucose 128 H (70-99(Fasting)) mg/dl Calcium 10.6 H (8.6-10.3) mg/dl Total Bilirubin 0.5 (0.2-1.0) mg/dl AST 13 (13-39) U/L ALT 8 (7-52) U/L Alkaline Phosphatase 91 (34-104) U/L Troponin I High Sens 51.2 H* 45.4 H (0-20) pg/ml Total Protein 7.8 (6.0-8.3) gm/dl Albumin 4.7 (3.4-5.0) gm/dl Globulin 3.1 (2.5-4.0) gm/dl Albumin/Globulin Ratio 1.5 (0.9-2) Lipase 10 L (11-82) U/L Administered Medications Discontinued Medications Al Hydrox/Mg Hydrox/Simethicone (Aluminum/Magnesium Susp 30 Ml Udc) 30 ml PO NOW STA Stop: 10/18/23 09:50 Last Admin: 10/18/23 09:59 Dose: 30 ml Documented By: BRANT Aspirin (Aspirin Chew 324 Mg) 324 mg PO NOW STA Stop: 10/18/23 09:50 Last Admin: 10/18/23 09:59 Dose: 324 mg Documented By: BRANT Ondansetron HCl (Ondansetron Inj 2 Mg/Ml 2 Ml Vial) 4 mg IV NOW STA Stop: 10/18/23 09:50 Last Admin: 10/18/23 09:59 Dose: 4 mg Documented By: BRANT Pantoprazole Sodium (Pantoprazole 40 Mg Tab) 40 mg PO NOW STA Stop: 10/18/23 09:50 Last Admin: 10/18/23 09:59 Dose: 40 mg Documented By: BRANT Imaging Data Attestation: I personally reviewed and interpreted this imaging study as follows: My Impression: 1 view chest x-ray was obtained in the emergency department. My interpretation is no free air or definite infiltrate, final report below. KUB was obtained in the emergency department. My interpretation is no free air or signs of bowel obstruction, final report below. Radiologist's Impression: Chest X-Ray 10/18/23 09:49 XR chest 1V portable CLINICAL HISTORY: heartburn TECHNIQUE: Single frontal radiograph of the chest was obtained. Comparison: Comparison is made to chest radiograph 01/17/2023 FINDINGS: No lines and tubes are seen. The cardiomediastinal silhouette is stable. Chronic interstitial thickening is seen. Pulmonary vasculature is mildly prominent. Faint bibasilar airspace opacities. No evidence of pleural effusion or pneumothorax. IMPRESSION: 1. Possible mild pulmonary venous congestion. 2. Faint lower lobe airspace opacities may represent atelectasis, pneumonia, and/or aspiration. ACT 112: Negative or not required by law. Electronically signed by: Richie Garcia M.D. 10/18/2023 10:18 AM KUB X-Ray 10/18/23 09:49 KUB CLINICAL HISTORY: heartburn COMPARISON STUDY: CT of the abdomen and pelvis April 24, 2022. FINDINGS: The bowel gas pattern is normal. Pelvic calcifications represent phleboliths. No renal calculi are identified. No evidence for free air on supine exam. IMPRESSION: No evidence for a bowel obstruction. ACT 112: Negative or not required by law. Electronically signed by: Kvng Werner M.D. 10/18/2023 10:17 AM Discharge Plan Visit Data Chief Complaint: Referred by Doctor Stated Complaint: CONFUSION, HEARTBURN, HIGH BP ED Provider: Van Minor Discharge Problem: Chest pain, Elevated troponin I level Patient Disposition: Being Evaluated by Hospitalist Forms Stand Alone Forms: My [facility] Prescriptions Prescriptions: No Action nitroglycerin [Nitrostat] 0.4 mg Tablet, Sublingual 0.4 mg sublingual DIRECTED PRN (Reason: Chest Pain) Qty: 0 multivitamin Tablet 1 tab PO DAILY Qty: 0 cilostazol 100 mg Tablet 100 mg PO BID Qty: 0 aspirin [Pollo Low Dose Aspirin] 81 mg Tablet,Delayed Release (Dr/Ec) 81 mg PO DAILY 90 Days Qty: 90 clonazepam [Klonopin] 0.5 mg tablet 0.5 - 1 mg PO HS PRN (Reason: sleep) Qty: 0 citalopram 20 mg tablet 20 mg PO DAILY Qty: 0 Rx Instructions: full tab daily coenzyme Q10 [Co Q-10] 400 mg capsule 400 mg PO DAILY docusate sodium 100 mg capsule 100 mg PO DAILY PRN (Reason: Constipation) folic acid 400 mcg tablet 0.4 mg PO DAILY metoprolol succinate 25 mg tablet extended release 24 hr 25 mg PO DAILY Repatha Pushtronex 420 mg/3.5 mL wearable injector 420 mg SQ MONTHLY ketoconazole 2 % cream 1 appln TOP UD Rx Instructions: APPLY TO FACE 2-3 TIMES PER WEEK fluocinonide 0.05 % cream 1 appln TOP UD PRN (Reason: itching) Rx Instructions: APPLY TO SCALP SUN- amlodipine 10 mg tablet 10 mg PO DAILY triamcinolone acetonide 0.1 % cream 1 applic topical DAILY terazosin 1 mg capsule 1 mg PO HS ketoconazole 2 % shampoo 1 appln TOPICAL UD Rx Instructions: APPLY TO SCALP 2-3 TIMES PER WEEK diclofenac sodium 1 % gel 4 g TOPICAL UD PRN (Reason: pain) Rx Instructions: 4 GRAMS ON LEFT KNEE 4 TIMES A DAY polyethylene glycol 3350 [Miralax] 17 gram Powder In Packet 17 g PO DIRECTED isosorbide mononitrate 30 mg tablet extended release 24 hr 30 mg PO QAM cholecalciferol (vitamin D3) [Vitamin D3] 25 mcg (1,000 unit) Tablet 25 mcg PO Q OTHER DAY lisinopril [Zestril] 40 mg Tablet 40 mg PO DAILY Qty: 30 0RF calcium carbonate 500 mg calcium (1,250 mg) Tablet 500 mg PO DAILY Eliquis 5 mg tablet 5 mg PO BID Referrals Referrals: Kaz Robledo MD [Primary Care Provider] - Discharge Problem: Chest pain Qualifiers: Chest pain type: unspecified Qualified Code(s): R07.9 - Chest pain, unspecified
[2023-10-18 10:14] LABS: Basophils # (auto) 0.07 K/uL (0.00-0.20); Basophils % (auto) 0.8 %; Eosinophils # (auto) 0.28 K/uL (0.00-0.50); Eosinophils % (auto) 3.2 %; Hematocrit (blood only) 45.5 % (42.0-52.0); Hemoglobin 15.6 g/dl (14.0-18.0); Immature Granulocytes # (auto) 0.03 K/uL (0.01-0.20); Immature Granulocytes % (auto) 0.3 %; Lymphocytes # (auto) 1.26 K/uL (1.20-3.40); Lymphocytes % (auto) 14.5 %; Mean Corpuscular Hemoglobin 31.1 pg (25.0-34.0); Mean Corpuscular Hgb Conc 34.3 g/dL (32.0-36.0); Mean Corpuscular Volume 90.8 fL (80.0-100.0); Mean Platelet Volume 10.5 fL (9.4-12.4); Monocytes # (auto) 0.58 K/uL (0.11-0.59); Monocytes % (auto) 6.7 %; Neutrophils # (auto) 6.49 K/uL (1.40-6.50); Neutrophils % (auto) 74.5 %; Platelet Count 223 K/uL (130-400); RDW Coefficient of Variation 12.2 % (11.5-14.5); RDW Standard Deviation 40.8 fL (36.4-46.3); Red Blood Count 5.01 M/uL (4.70-6.10); White Blood Count 8.71 K/ul (4.8-10.8)
--- NOTE | 2023-10-18 10:18 | XRay Report ---
KUB CLINICAL HISTORY: heartburn COMPARISON STUDY: CT of the abdomen and pelvis April 24, 2022. FINDINGS: The bowel gas pattern is normal. Pelvic calcifications represent phleboliths. No renal calc mily are identified. No evidence for free air on supine exam. IMPRESSION: No evidence for a bowel obstruction. ACT 112: Negative or not required by law. Electronically signed by: Kvng Werner M.D. 10/18/2023 10:17 AM
--- NOTE | 2023-10-18 10:19 | XRay Report ---
XR chest 1V portable CLINICAL HISTORY: heartburn TECHNIQUE: Single frontal radiograph of the chest was obtained. Comparison: Comparison is made to chest radiograph 01/17/2023 FINDINGS: No lines and tubes are seen. The cardiomediastinal silhouette is stable. Chronic interstitial thicken ing is seen. Pulmonary vasculature is mildly prominent. Faint bibasilar airspace opacities. No eviden ce of pleural effusion or pneumothorax. IMPRESSION: 1. Possible mild pulmonary venous congestion. 2. Faint lower lobe airspace opacities may represent atelectasis, pneumonia, and/or aspiration. ACT 112: Negative or not required by law. Electronically signed by: Richie Garcia M.D. 10/18/2023 10:18 AM
[2023-10-18 10:27] LABS: Albumin Globulin Ratio 1.5 (0.9-2); Albumin Level 4.7 gm/dl (3.4-5.0); BUN Creatinine Ratio 18.4 (10-20); Bilirubin,Total 0.5 mg/dl (0.2-1.0); Calcium 10.6 mg/dl (8.6-10.3); Creatinine Clr Calc Pharmacy 61.8 ml/min; Est GFR (Non-African American) 61.3 ml/min; Globulin 3.1 gm/dl (2.5-4.0); Potassium 4.2 mmol/L (3.5-5.1); Total Protein 7.8 gm/dl (6.0-8.3)
[2023-10-18 10:36] LABS: INR 0.9 (0.9-1.1); Partial Thromboplastin Ratio 1.3; Partial Thromboplastin Time 35 Seconds (21-31); Prothrombin Time 10.3 Seconds (9.0-12.0)
--- NOTE | 2023-10-18 11:14 | History & Physical Report ---
Date of Service October 18, 2023 Assessment & Plan (1) Chest pain: (2) Elevated troponin I level: Plan: This is a 78yo M with a PMH of CAD, HTN, mood disorder, PAD, carotid artery stenosis and other medical problems listed below who presents with CP that developed in the [employer]. Waxing and waning chest pressure since 0400, resolved since arrival R/o ACS; risk factors include smoking hx, HTN, CAD, vascular disease EKG with sinus rhythm, no acute ST changes Initial HS troponin elevated at 50 (Per Dr. Minor, not uploaded to chart yet). Repeat pending CXR possible mild pulmonary venous congestion. Faint lower lobe airspace opacities may represent atelectasis, pneumonia, and/or aspiration. Follows with [facility] - h/o resting echocardiogram and Nuclear stress test May 2023 which was negative for ischemia. There is notation of moderate aortic calcification Given 324mg aspirin in ED Trend serial cardiac enzymes Check echo Repeat EKG in am Transition from home eliquis to IV heparin in case cardiac intervention needed Consult cardiology (3) CAD (coronary artery disease): (4) Peripheral arterial disease: (5) Hyperlipidemia: Plan: Denies any hx of intervention. Follows with [facility]. Continue aspirin, Repatha (statin intolerant) (6) Hypertension: Plan: Continue home amlodipine, lisinopril, Toprol, terazosin (7) Atrial flutter: Plan: Diagnosed in August - started on Eliquis Will hold for now and start IV heparin (8) Parkinson's disease: Plan: Recently seen by neuro for tremor at beginning of September 2023, diagnosed with Parkinson's disease - prescribed Sinemet but stopped one week ago due to increased confusion and BP fluctuations (9) Depression: (10) Anxiety: Plan: Continue SSRI, PRN home Klonopin DVT Ppx: IV heparin in case of cardiac intervention Code status: FULL PCP: Venkat Dispo: obs tele Patient seen in collaboration with Dr. Tan. Please see addendum. I spent a total of 75 minutes coordinating, documenting, and providing care for this patient excluding time spent in the performance of separately billed services. 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 Patient woke up suddenly with burning chest pain at 0400. Sat upright to see if pain with resolve but it did not. Then sat in recliner overnight and pain waxed and waned all night till 0800, when he called [facility] appointment line and was re-directed to ED for further evaluation. Pain radiated up to neck, not to arms. Describes pain as a pressure. Also endorses headache over the past few days. BP log showing SBP 120-700s on average. Also endorses increased fatigue and cough over the past week. No fever, chills, lightheadedness, shortness of breath, palpitations, nausea, vomiting, abdominal pain, dysuria, diarrhea or constipation. Taking all medications as prescribed. Lives alone. History of smoking cigarettes but quit in 2002. Hx of 2D echo in May 2023 with preserved EF, mild concentric LV wall thickness. Patient is a poor historian. Allergies Allergy/AdvReac Type Severity Reaction Status Date / Time bee venom protein (honey bee) Allergy Severe SWELLING, Verified 01/17/23 18:59 INTENSE ITCHING, HIVES atorvastatin AdvReac Intermediate MUSCLE PAIN Verified 01/17/23 18:59 Home Medications Medication Instructions Recorded Confirmed Type nitroglycerin 0.4 mg sublingual 0.4 mg sublingual DIRECTED PRN 01/17/13 10/18/23 History tablet (Nitrostat) Chest Pain #0 BTLS multivitamin 1 tab PO DAILY #0 tabs 09/20/14 10/18/23 History aspirin 81 mg tablet,delayed 81 mg PO DAILY 90 days #90 tabs 04/19/17 10/18/23 History release (Polol Low Dose Aspirin) cilostazol 100 mg tablet 100 mg PO BID #0 tabs 04/19/17 10/18/23 History coenzyme Q10 400 mg capsule (Co 400 mg PO DAILY 05/15/19 10/18/23 History Q-10) docusate sodium 100 mg capsule 100 mg PO DAILY PRN Constipation 05/15/19 10/18/23 History folic acid 400 mcg tablet 0.4 mg PO DAILY 05/15/19 10/18/23 History metoprolol succinate 25 mg 25 mg PO DAILY 05/15/19 10/18/23 History tablet,extended release 24 hr clonazepam 0.5 mg tablet (Klonopin) 0.5 - 1 mg PO HS PRN sleep #0 tabs 11/25/19 10/18/23 History diclofenac sodium 1 % topical gel 4 g topical UD PRN pain 11/25/19 10/18/23 History evolocumab 420 mg/3.5 mL 420 mg subcut MONTHLY 11/25/19 10/18/23 History subcutaneous wearable injector (Repatha Pushtronex) fluocinonide 0.05 % topical cream 1 appln topical UD PRN itching 11/25/19 10/18/23 History ketoconazole 2 % shampoo 1 appln topical UD 11/25/19 10/18/23 History ketoconazole 2 % topical cream 1 appln topical UD 11/25/19 10/18/23 History cholecalciferol (vitamin D3) 25 25 mcg PO Q OTHER DAY 02/05/22 10/18/23 History mcg (1,000 unit) tablet (Vitamin D3) isosorbide mononitrate 30 mg 30 mg PO QAM 02/05/22 10/18/23 History tablet,extended release 24 hr polyethylene glycol 3350 17 gram 17 g PO DIRECTED 02/05/22 10/18/23 History oral powder packet (Miralax) lisinopril 40 mg tablet (Zestril) 40 mg PO DAILY #30 tabs 02/08/22 10/18/23 Rx calcium carbonate 500 mg PO DAILY 04/24/22 10/18/23 History amlodipine 10 mg tablet 10 mg PO DAILY 12/14/22 10/18/23 History citalopram 20 mg tablet 20 mg PO DAILY #0 tabs 12/14/22 10/18/23 History terazosin 1 mg capsule 1 mg PO HS 12/14/22 10/18/23 History triamcinolone acetonide 0.1 % 1 applic topical DAILY 12/14/22 10/18/23 History topical cream apixaban 5 mg tablet (Eliquis) 5 mg PO BID 10/18/23 10/18/23 History Past Med/Surg History Problem List (Updated 10/18/23 @ 12:20 by Jennifer Noel PA-C) Parkinson's disease Elevated troponin I level (Acute) Chest pain (Acute) Anxiety Depression Hyperlipidemia CAD (coronary artery disease) Peripheral arterial disease Hypertension (Chronic) Medical History (Updated 10/18/23 @ 12:20 by Jennifer Noel PA-C) Atrial flutter Inguinal hernia Surgical History (Updated 10/18/23 @ 11:48 by Jennifer Noel PA-C) S/P tonsillectomy Family History (Updated 10/18/23 @ 11:49 by Jennifer Noel PA-C) Other Asthma Denies family history of Hypertension Social History Smoking Status: Never smoker Tobacco Type: Cigarettes Hx Alcohol Use: No Hx Substance Use: No Preferred Language: Vietnamese Communication Ability: Effective Male Impersonator Required: No Beliefs That Will Affect Care: None Current Living Situation: Alone Feels Safe at Home: Yes Assistive Devices: Cane Review of Systems Review of Systems: At least ten systems reviewed and negative except as noted in the HPI. Physical Exam Physical Exam: Please see Dr. Tan's addendum for physical exam. Results & Data Results & Data Vital Signs (Past 12 Hours) Vital Signs Temp Pulse Pulse Resp BP Pulse Ox O2 Del Method 10/18/23 10:15 49 L 10/18/23 09:49 96 10/18/23 09:31 36.8 C 64 16 158/107 H 97 Room Air 10/18/23 09:28 57 L 16 98 Laboratory Results Short CBC 10/18/23 Range/Units 09:48 WBC 8.71 (4.8-10.8) K/ul Hgb 15.6 (14.0-18.0) g/dl Hct 45.5 (42.0-52.0) % Plt Count 223 (130-400) K/uL BMP 10/18/23 09:48 Sodium 138 Potassium 4.2 Chloride 105 Carbon Dioxide 29 BUN 21 Creatinine 1.14 Glucose 128 H Calcium 10.6 H Liver Function 10/18/23 Range/Units 09:48 Total Bilirubin 0.5 (0.2-1.0) mg/dl AST 13 (13-39) U/L ALT 8 (7-52) U/L Alkaline Phosphatase 91 (34-104) U/L Albumin 4.7 (3.4-5.0) gm/dl Diagnostic Findings Chest X-Ray 10/18/23 09:49 XR chest 1V portable CLINICAL HISTORY: heartburn TECHNIQUE: Single frontal radiograph of the chest was obtained. Comparison: Comparison is made to chest radiograph 01/17/2023 FINDINGS: No lines and tubes are seen. The cardiomediastinal silhouette is stable. Chronic interstitial thickening is seen. Pulmonary vasculature is mildly prominent. Faint bibasilar airspace opacities. No evidence of pleural effusion or pneumoth orax. IMPRESSION: 1. Possible mild pulmonary venous congestion. 2. Faint lower lobe airspace opacities may represent atelectasis, pneumonia, and/or aspiration. ACT 112: Negative or not required by law. Electronically signed by: Richie Garcia M.D. 10/18/2023 10:18 AM KUB X-Ray 10/18/23 09:49 KUB CLINICAL HISTORY: heartburn COMPARISON STUDY: CT of the abdomen and pelvis April 24, 2022. FINDINGS: The bowel gas pattern is normal. Pelvic calcifications represent phleboliths. No renal calculi are identified. No evidence for free air on supine exam. IMPRESSION: No evidence for a bowel obstruction. ACT 112: Negative or not required by law. Electronically signed by: Kvng Werner M.D. 10/18/2023 10:17 AM ECG Additional Comments: EKG sinus rhythm at [address] segment changes. Supervising Physician Co-Signing Physician Notes 78 yo M w/ PMH of CAD, PAD, HTN presented w/ c/o waking up from sleep at 4 am from chest discomfort, he describes it as heartburn, propped himself up in the bed and then on recliner/tried tums -- didn't help, no radiation, it came and went frequently, called OP office for evaluation today, he was referred to the Emergency. Pain 4/10 in intensity, more described as heartburn and pressure like sensation. Labs fairly wnl, troponin pending (elevated per ED physician, he got reports directly), will trend trops. Will try PPI bid, hold home eliquis, low dose heparin drip (pt has not taken AM eliquis dose), tele monitoring, echo and cardiology. EKG w/ chest pain. prn nitro. He denied sore throat, reports baseline cough/no recent worsening or changes in cough or sputum, denies acute changes in bowel or bladder habits, denies febrile illness. He also reports chronic sob w/ activity since 2004. might likely need 2 step test prior to dc. On exam: GENERAL: Alert and oriented x3. NAD, on RA. HEENT: No pallor, no icterus. Pupils equal, round and reactive to light. Oral mucosa moist. NECK: No JVD, no neck masses. Resting tremor noted. Chest pain non reproducible. HEART: S1 and S2 heard. Regular rate and rhythm. No murmur, no gallop. RESPIRATORY SYSTEM: Normal AP diameter. No accessory muscle use. No wheezing, no crackles. ABDOMEN: Soft, bowel sounds present, nontender, no distention. CENTRAL NERVOUS SYSTEM: No facial droop. Speech is clear. Obeys simple commands. Moves extremities. EXTREMITIES: No edema, no erythema seen. I have seen and examined the patient and have discussed the case with the provider above. I agree with the assessment and plan as stated. (1) Chest pain Chest pain type: unspecified Qualified Code(s): R07.9 - Chest pain, unspecified
[2023-10-18 12:22] LABS: Troponin I High Sensitivity 51.2 pg/ml (0-20)
[2023-10-18] MEDS: amLODIPine BESYLATE 5 MG TAB PO ONE (13:54)
[2023-10-18] MEDS: HEPARIN SODIUM/DEXTROSE 25,000 UNITS/500 ML BAG IV SCH (13:54)
[2023-10-18] MEDS: Heparin IV Adult Wt-Based Low-Dose *NO* INITIAL Bolus Protocol IV STA (13:59)
[2023-10-18] MEDS: lisinopril 40 MG TAB PO STA (14:06)
[2023-10-18] MEDS ORDERED: DOCUSATE SODIUM 100 MG CAP PO PRN (17:06)
[2023-10-18] MEDS ORDERED: DICLOFENAC SOD 1% GEL 100 GM TUBE EXT PRN (17:06)
[2023-10-18] MEDS ORDERED: ALUMINUM/MAGNESIUM SUSP 30 ML UDC PO PRN (17:06)
[2023-10-18] MEDS ORDERED: NITROGLYCERIN SL 0.4 MG/TAB TAB SL PRN (17:06)
[2023-10-18] MEDS ORDERED: ACETAMINOPHEN 325 MG TAB PO PRN (17:06)
[2023-10-18] MEDS ORDERED: ONDANSETRON INJ 2 MG/ML 2 ML VIAL IV PRN (17:06)
[2023-10-18 17:12] LABS: Appearance Urine Clear (Clear); Bilirubin Urine Negative (Negative); Blood Urine Negative (Negative); Color Urine Yellow; Glucose Urine UA Negative (Negative); Ketones Urine Negative (Negative); Leukocyte Esterase Urine Negative (Negative); Nitrite Urine Negative (Negative); Protein Urine Negative (Negative); Specific Gravity Urine 1.015 (1.000-1.030); Urobilinogen Urine Negative (Negative)
[2023-10-18] MEDS ORDERED: BETAMETHASONE DIP AUG (DIPROLENE) 0.05% CR 15 GM TUBE EXT PRN (17:15)
--- NOTE | 2023-10-18 17:43 | Electrocardiogram Report ---
Test Reason : Blood Pressure : / mmHG Vent. Rate : 059 BPM Atrial Rate : 059 BPM P-R Int : 204 ms QRS Dur : 098 ms QT Int : 416 ms P-R-T Axes : 059 -40 016 degrees QTc Int : 411 ms Sinus bradycardia Left axis deviation Minimal voltage criteria for LVH, may be normal variant Abnormal ECG When compared with ECG of 17-JAN-2023 18:50, Incomplete right bundle branch block is no longer Present Confirmed by Moshe Parham ([id number]) on 10/18/2023 5:43:00 PM Referred By: Kaz Robledo Confirmed By:John Parham
[2023-10-18] MEDS: CHOLECALCIFEROL 25 MCG (1000 UNITS) TAB PO SCH (18:29)
[2023-10-18] MEDS: clonazePAM 0.5 MG TAB PO PRN (21:00)
[2023-10-18] MEDS: TERAZOSIN HCL 1 MG CAP PO SCH (21:00)
[2023-10-18] MEDS: METOPROLOL SUCC 25MG EXT REL TAB PO SCH (21:00)
[2023-10-18] MEDS: cilostazoL 100 MG TAB PO SCH (21:00)
[2023-10-18 21:09] LABS: ANTI-Xa, UFH(UnfractionatedHep 0.81 IU/ml (0.3-0.7)
[2023-10-19 04:53] LABS: Hemoglobin 12.6 g/dl (14.0-18.0); Mean Corpuscular Hemoglobin 30.8 pg (25.0-34.0); Mean Corpuscular Hgb Conc 34.1 g/dL (32.0-36.0); Mean Corpuscular Volume 90.5 fL (80.0-100.0); Mean Platelet Volume 10.4 fL (9.4-12.4); Platelet Count 186 K/uL (130-400); RDW Coefficient of Variation 12.1 % (11.5-14.5); RDW Standard Deviation 40.1 fL (36.4-46.3); Red Blood Count 4.09 M/uL (4.70-6.10); White Blood Count 6.02 K/ul (4.8-10.8)
[2023-10-19 04:58] LABS: BUN Creatinine Ratio 15.8 (10-20); Creatinine Clr Calc Pharmacy 61.7 ml/min; Est GFR (Non-African American) 61.3 ml/min; Magnesium 2.2 mg/dl (1.7-2.4); Potassium 3.9 mmol/L (3.5-5.1)
[2023-10-19 05:04] LABS: ANTI-Xa, UFH(UnfractionatedHep 0.58 IU/ml (0.3-0.7)
--- OUTSIDE RECORDS SUMMARY | 2023-10-19 07:18 | External Medical Summary | Summary of Care ---
Author Name Unknown Organization [facility] Address [address] [place] [address] Phone [phone] Care Team Providers Care Entry Examiner Name Role Phone Kaz Robledo MD Primary Care Provider +1- [phone] Encounter Details Date Type Department Care Team (Late st Contact Info) Description 10/02/2023 Telephone Neurology [facility] [address] [place] [address] Shantel Zhou MD [address] [place] [address] Allergies Active Allergy Reactions Criticality Noted Date Comments Atorvastatin Muscle pain 12/11/2016 Bee Stings 02/21/1999 Hives,intense itching,edema Gabapentin 10/02/2023 "Couldn't handle it" documented as of this encounter (statuses as of 10/02/2023) Medications Medication Sig Dispensed Refills Start Date End Date Status LOW-DOSE ASPIRIN 81 MG PO TABS one daily Active DAILY MULTIVITAMIN PO TABS 1 tablet daily Active CALCIUM 500 MG PO TABS Take by mouth daily. 60 Tab 0 05/02/2010 Active NITROGLYCERIN 0.4 MG SL SUBLIndications:Stab le angina (HCC) 1 TAB EVERY 5 MIN NEEDED, UP TO 3 PER EPISODE 25 Tab 5 10/14/2013 Active Additional Information Patient taking differently:Sublingual,Indications: reviewed exp date was exp 12/26 now pitched and new bottle will exp 04/27, Reported on 07/03/2022 docusate sodium (COLACE) 100 MG CapsuleIndications:t tereza one by mouth every other day as needed Take 1 Capsule by mouth daily as needed. Active Folic Acid 400 MCG Tablet Take 1 Tablet by mouth in the morning. 30 Tab 0 12/23/2015 Active Coenzyme Q10 (CO Q-10) 400 MG CAPS Take 1 Cap by mouth once. 30 Cap 0 12/23/2015 Active Cholecalciferol (VITAMIN D) 1000 units Tablet Take 1 Tablet by mouth every other day. 03/24/2018 Active Ketoconazole 2 % External CreamIndications:Amol orrheic dermatitis Apply to face 2-3 x's per week. 30 g 4 02/05/2020 Active Diclofenac Sodium 1 % External GelIndications:Acute pain of right shoulder Apply 4 gm topically to right shoulder 4 times a day 200 g 1 08/09/2020 Active Polyethylene Glycol 3350 17 GM/SCOOP Oral Powder (MiraLax)Indications :Chronic constipation Take 17 g by mouth daily. Dissolve one heaping tablespoon in 8 ounces of water or juice. If after one week, bowels are not moving well, take twice a day 850 g 1 12/29/2020 Active Triamcinolone Acetonide 0.1 % External Cream (Aristocort)Indicati ons:Hand erythema Apply topically to affected area 2 times a day. To affected area. 45 g 10/17/2022 Active Cilostazol 100 MG Oral Tablet (Pletal) take 1 tablet by mouth twice a day ON AN EMPTY STOMACH 180 Tablet 3 04/24/2023 Active Terazosin HCl 1 MG Oral Capsule (Hytrin)Indications: HTN, goal below 140/90 Take 1 Capsule by mouth at bedtime. 90 Capsule 3 04/24/2023 Active Lisinopril 40 MG Oral Tablet Take 1 Tablet by mouth in the morning 90 Tablet 3 04/24/2023 Active Citalopram Hydrobromide 20 MG Oral Tablet (CeleXA)Indications: Major depressive disorder, recurrent episode, mild (HCC) Take 1 Tablet by mouth in the morning. 90 Tablet 3 04/24/2023 Active Metoprolol Succinate ER 25 MG Oral Tablet Extended Release 24 Hour (toPROL XL) Take 1 Tablet by mouth at bedtime. 90 Tablet 3 04/24/2023 Active Fluocinonide 0.05 % External SolutionIndications: Seborrheic dermatitis Apply to scalp daily Sunday thru as needed for redness and flaking 60 mL 2 05/25/2023 Active Ketoconazole 2 % External Shampoo (Nizoral)Indications :Seborrheic dermatitis Apply to scalp 2-3 x's per week. 360 mL 5 05/25/2023 Active Isosorbide Mononitrate ER 30 MG Oral Tablet Extended Release 24 Hour (Imdur)Indications:C oronary artery disease involving [place] coronary artery of [place] heart without angina pectoris,Chronic coronary artery disease TAKE ONE TABLET BY MOUTH EVERY DAY IN THE MORNING 90 Tablet 3 05/30/2023 5 Active amLODIPine Besylate 10 MG Oral Tablet (Norvasc) TAKE ONE TABLET BY MOUTH EVERY MORNING 90 Tablet 3 07/20/2023 5 Active Apixaban 5 MG Oral Tablet (Eliquis)Indications :New onset atrial flutter (HCC) Take 1 Tablet by mouth in the morning and 1 Tablet before bedtime. 180 Tablet 3 08/24/2023 Active Repatha SureClick 140 MG/ML Subcutaneous Solution Auto-injector (evolocumab) Inject 140 mg (1 pen) under the skin every 14 days. Remove from refrigerator 30 minutes prior to injection. 2 mL 3 09/04/2023 Active clonazePAM 0.5 MG Oral Tablet (KlonoPIN)Indication s:Sleep disorder,Adjustment disorder with mixed anxiety and depressed mood TAKE 1 TO 2 TABLETS BY MOUTH ONCE DAILY AT BEDTIME FOR SLEEP 60 Tablet 09/13/2023 Active Carbidopa-Levodopa 25-100 MG Oral Tablet (Sinemet)Indications :Parkinson's disease without dyskinesia or fluctuating manifestations (HCC) take 1 tablet twice a day with meals for 5 days then 1 tablet three times a day with meals 270 Tablet 1 09/13/2023 Active documented as of this encounter (statuses as of 10/02/2023) Active Problems Problem Noted Date Diagnosed Date Chronic obstructive pulmonary disease 05/25/2023 Major depressive disorder, recurrent episode, mi ld 05/25/2023 Adjustment disorder with mixed anxiety and depre ssed mood 05/25/2023 Problems related to living alone 05/25/2023 Anxiety 08/03/2022 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, bilateral legs 07/27/2022 Prediabetes 09/12/2021 Overview: Per Prediabetes protocol Bilateral carotid artery occlusion 08/19/2020 PVD (peripheral vascular disease) 12/23/2018 Major depressive disorder wi th single episode, in full remission 12/23/2018 Personal history of subdural hemorrhage 09/04/19 18 History of adenomatous polyp of colon 09/03/2017 History of nonmelanoma skin cancer 06/28/2017 Overview: BCC's x 2 on the central lower back 05/23, BCC right nasolabial fold 11/19, BCC's left jawline 09/19, left oral commissure 11/18, 12/18, left lower back, chest 11/15 and neck 2000 Controlled substance agreement signed 04/17/2017 Generalized osteoarthritis 08/03/2015 Vitamin D deficiency 03/18/2014 Obesity, Class I, BMI 30.0-34.9 (see actual BMI) 05/14/2012 Overview: bmi= 31.85 05/14/12 HTN, goal below 140/90 02/15/2012 REM behavioral disorder 09/25/2011 Periodic limb movement disorder 09/25/2011 History of tobacco use 07/27/2009 Chronic coronary artery disease 07/08/2009 DYSLIPIDEMIA, GOAL LDL BELOW 100 04/15/2009 Overview: Per Lipid Taxonomy. Hearing loss 07/09/2007 Carotid stenosis, non-symptomatic 04/27/2006 documented as of this encounter (statuses as of 10/02/2023) Resolved Problems Problem Noted Date Diagnosed Date Resolved Date Chronic obstructive pulmonary disease 12/23/2018 08/19/2020 Chronic pain syndrome 04/17/20172017 COPD (chronic obstructive pulmonary disease) 7 03/06/2017 Encounter for surveillance of abnormal nevi 12/18/2014 09/03/2017 Malignant basal cell neoplasm of skin 11/04/2013 06/28/2017 Overview: Removed ICD-10 update of inactive term Dysmetabolic syndrome 09/08/20132017 Scalp laceration 01/24/2013 09/03/2017 Head injury 01/24/2013 09/03/2017 History of basal cell carcinoma 11/25/2012 06/28/2017 Overview: left neck 2001, right lower back and chest 11/15 Sleep disorder 02/15/2012 09/03/2017 Genetic Sleep Disorder Resea [facility] Other*[id number] 06/26/2011 12/08/2015 EXAMINATION OF PARTICIPANT I N CLINICAL TRIAL-Genomics 06/04/2009 08/20/2009 Overview: Renamed Per Clinical Trials Billing Project. Study Titile: Genomic Markers for Patients with Cardiovascular Disease Project #[id number] PI: Radha Yepez MD Please call [phone] with study related questions GENOMICS CARDIO RESEARCH OTHER*[id number] 06/04/2009 06/13/2016 Overview: Renamed Per Clinical Trials Billing Project. Study Titile: Genomic Markers for Patients with Cardiovascular Disease Project #[id number] PI: Radha Yepez MD Please call [phone] with study related questions Benign neoplasm of colon 05/11/2008 Overview: adenomatous/repeat colonoscopy in 3 yrs OPEN WOUND OF FOREARM, RIGHT 01/27/2008 09/03/2017 Shoulder joint pain 01/27/2008 09/04/19 18 Contusion of shoulder region 01/27/2008 09/03/2017 HEMOSPERMIA 01/27/2008 09/03/2017 Elevated blood pressure, situational 07/09/2007 04/17/2017 Cervicalgia 07/09/2007 09/03/2017 Postconcussion syndrome 07/09/200708/07 Subdural hemorrhage followin g injury, without mention of open intracranial wound, brief (less than one hour) loss of consciousness 07/09/2007 09/03/2017 Subjective tinnitus 07/09/2007 08/22/19 19 ADVANCE DIRECTIVE INFORMATION 04/06/2006 09/03/2017 Overview: Yes, Patient instructed to provide copy of advance directive for provider to review and to be scanned into Electronic Medical Record Dyslipidemia, goal to be determined 02/03/2005 04/15/2009 Overview: Per Lipid Taxonomy. IMPOTENCE, ORGANIC ORIGN Tobacco use disorder 010 Major depressive disorder Overview: history documented as of this encounter (statuses as of 10/02/2023) Immunizations Name Administration Dates Next Due COVID-19 mRNA, LNP-s, No Pre serve, 2-Dose Series (Moderna) 07/02/2020,06/03/2020 COVID-19, mRNA, LNP-s, PF, B ooster, 100mcg/0.5mg (Moderna) 10/06/2021,03/02/2021 Covid-19, Mrna, Lnp-s, Pf, B ivalent, 30 Mcg, IM, 12 yrs and above (Pfizer) 02/15/2022 H1N1 2009 Influenza, IM 05/10/2009 Pneumococcal Conjugate Vacc, 13 Valent (Prevnar) 02/02/2015 Pneumococcal Polysaccharide PPV23 (Pneumovax) 01/24/2010,03/02/2001 Seasonal Influenza, PF, 6 M & above, IM , (FluLaval or Fluzone) 01/14/2020,02/05/2019,02/25/2018,01/25 Seasonal Influenza, Quadriva lent Hd (Fluzone Hd) 04/24/2023,01/10/2022,02/02/2021 Seasonal Influenza, Quadriva lent, No Preserve, IM 01/31/2016,02/01/2015 Seasonal Influenza, Split, I IV3, With Preserve, Inj 01/21/2014,01/15/2013,01/20/2012,01/23,01/24/2010,01/20/2009,03/09/2008 ,02/06/2007,03/17/2006,02/20/2005,02/05,03/09/1999 TD, Preservative Free 08/26/2018 TDAP (age 11 and older)(Adacel) 01/27/2008 Varicella Zoster Vaccine (Adult) 02/03/2009 Zoster Vaccine Recombinant (Shingrix) 06/07/2019 ,02/11/2019 documented as of this encounter Social History Tobacco Use Types Packs/Day Years Used Date Smoking Tobacco: Former Cigarettes 0.8 30 0 05/07/1972 - 05/07/2002 Passive Smoke Exposure: Past Smokeless Tobacco: Never Comments:no smoking since 24 07 Alcohol Use Standard Drinks/Week Comments No 0 (1 standard drink = 0.6 oz pur e alcohol) PHQ-2 Answer Date Recorded PHQ Adult Total Score 0 01/09/2023 Hunger Vital Sign Answer Date Recorded Within the past 12 months, y ou worried that your food would run out before you got the money to buy more. Never true 01/23/20 23 Within the past 12 months, t he food you bought just didn't last and you didn't have money to get more. Never true 01/22/2023 Sex and Gender Information Value Date Recorded Sex Assigned at Male 08/26/2018 4:04 PM EDT Gender Identity Male 08/26/2018 4:04 PM EDT Sexual Orientation Straight 08/26/2018 4: 04 PM EDT Job Start Date Occupation Industry Not on file Not on file Not on file documented as of this encounter Miscellaneous Notes * Telephone Encounter - Justina Acosta LPN - 10/02/2023 3:42 PM EDT Talked to the POA. The Blood pressure was 86/44 this morning. She stated he can't function on the 2tablets, especially not the 3 daily. She stated she thought maybe it helped the tremor a little butthen he would sleep all day so she couldn't be sure, stated he can't do ADL's. Stated he isn't evenalert. I advised to call back if he has any adverse effect from stopping the medication. * Telephone Encounter - Shantel Zhou MD - 10/02/2023 3:28 PM EDT It can lower blood pressure somewhat what was patient's blood pressure at his cardiology visit? If he is just taking it twice a day he can just stop did he notice any improvement * Telephone Encounter - Justina Acosta LPN - 10/02/2023 2:03 PM EDT Patient's POA stopped in and wants the patients carbidopa-levodopa discontinued. They stated Marcia Bowers wanted it canceled. documented in this encounter Plan of Treatment Upcoming Encounters Date Type Department Care Team (Late st Contact Info) Description 11/05/2023 1:00 PM EDT Office Visit [facility] [address] [place] [address] Kaz Robledo MD [address] [place] [address] 11/23/2023 2:40 PM EDT Office Visit [facility] [address] [facility] [place] [address] Shantel Mc PA-C [address] [facility] [place] [address] 12/11/2023 8:00 AM EDT Imaging V[facility], [address] [facility] [address] 12/11/2023 9:00 AM EDT Imaging Vascular Lab, [facility] 2nd [facility] [address] 12/19/2023 8:30 AM EDT Office Visit Vascular Surgery, [facility] 132 [facility] [place] [address] Rancho Soler MD [address] [place] [address] 12/26/2023 9:00 AM EDT Office Visit Cardiology, [facility] 132 [facility] [place] [address] Marcia Collins CRNP [address] [place] [address] 02/21/2024 1:30 PM EDT Office Visit Neurology [facility] [address] [place] [address] Shantel Mc PA-C [address] [place] [address] 02/28/2024 8:40 AM EDT Office Visit Neurology [facility] [address] [place] [address] Darron Calvillo MD [address] [place] [address] 03/18/2024 3:00 PM EST Office Visit Cardiology, [facility] [address] [place] [address] Marcia Collins CRNP [address] [facility] [place] [address] 10/24/2024 2:00 PM EDT Office Visit Dermatology [facility] [address] [place] [address] Mitchell Mack MD [address] [place] [address] Scheduled Procedures Name Priority Associated Diagnoses Date/Ti me COLONOSCOPY FLEXIBLE PROXIMAL DIAGNOSTIC Recall History of colon polyps Health Maintenance Due Date Last Done Comments Alpha-1 Antitrypsin 1963 Colonoscopy 03/20/2020 03/20/2019, 03/07, 10/15/2017, Additional history exists COVID-19 Vaccine ( season) 2023 02/15/2022, 10/06/2021, 03/02/2021, Additional history exists *COPD SEVERITY VERIFIED BY PFT 05/28/2023 HbA1c 07/16/2024 07/17/2023, 05/2022, 08/23/2021, Additional history exists GFR 08/23/2024 08/24/2023, 07/05, 09/19/2022, Additional history exists O2 ASSESSMENT COMPLETED IN PAST YEAR FOR COPD 10/01/2024 10/02/2023 Albumin/Creatinine Ratio 07/17/2026 07/18/2023, 09/05 DTaP,Tdap,and Td Vaccines (3 - Td or Tdap) 08/26/2028 08/26/2018, 01/27/2008 Pneumococcal Vaccine: 65+ Years Completed 02/02/2015, 01/24/2010, 03/02/2001 RETIRED - COLONOSCOPY-ANNUAL AGES 18-100 Discontinued 03/20/2019, 03/20/2019, 10/15/2017, Additional history exists Zoster Vaccines Completed 06/07/2019, 12/2018, 02/03/2009 Influenza Vaccine (FLU shot) Completed 04/24/2023, 01/10/2022, 02/02/2021, Additional history exists GARDASIL-HPV IMMUNIZATION SERIES Aged Out No longer eligible based on patient's age to complete this topic Hepatitis B Aged Out No longer eligi ble based on patient's age to complete this topic MENINGOCOCCAL (MENACTRA/MENVEO) Aged Out No longer eligible based on patient's age to complete this topic documented as of this encounter Medical Devices Not on filedocumented as of this encounter Care Teams Entry Examiner Relationship Specialty Start Date End Date Kaz Robledo MD [address] [place] [address] PCP - General Family Medicine 03/05/17 documented as of this encounter
--- OUTSIDE RECORDS SUMMARY | 2023-10-19 07:18 | External Medical Summary | Summary of Care ---
Author Name Unknown Organization [facility] Address [address] [place] [address] Phone [phone] Care Team Providers Care Pipe Fittings Molder Name Role Phone Kaz Robledo MD Primary Care Provider +1- [phone] Encounter Details Date Type Department Care Team (Late st Contact Info) Description 10/02/2023 Telephone Neurology [facility] [address] [place] [address] Shantel Zhou MD [address] [place] [facility] [place] [address] Allergies Active Allergy Reactions Criticality Noted Date [...] 24 Hour (Imdur)Indications:C oronary artery disease involving [place] coronary artery of [place] heart without angina pectoris,Chronic coronary artery disease [...] disorder 02/15/2012 09/03/2017 Genetic Sleep Disorder Resea [facility] Other*[id number] 06/26/2011 12/08/2015 EXAMINATION OF PARTICIPANT I N CLINICAL TRIAL-Genomics 06/04/2009 08/20/2009 Overview: Renamed Per Clinical Trials Billing Project. Study Titile: Genomic Markers for Patients with Cardiovascular Disease Project #[id number] PI: Radha Yepez MD Please call [phone] with study related questions GENOMICS CARDIO RESEARCH OTHER*[id number] 06/04/2009 06/13/2016 Overview: Renamed Per Clinical Trials Billing Project. Study Titile: Genomic Markers for Patients with Cardiovascular Disease Project #[id number] PI: Radha Yepez MD Please call [phone] with study related questions Benign neoplasm of [...] Description 11/05/2023 1:00 PM EDT Office Visit [facility] [address] [place] [address] Kaz Robledo MD [address] [place] [address] 11/23/2023 2:40 PM EDT Office [facility] 200 [facility] [place] [address] Shantel Mc PA-C 200 [facility] [place] [address] 12/11/2023 8:00 AM EDT Imaging Vascular Lab, [address] [facility] [address] 12/11/2023 9:00 AM EDT Imaging Vascular Lab, [facility] 2nd [facility] 132 [facility] [place] [address] 12/19/2023 8:30 AM EDT Office Visit Vascular Surgery, [facility] 132 [facility] [place] [address] Rancho Soler MD [address] [place] [address] 12/26/2023 9:00 AM EDT Office Visit Cardiology, [facility] 132 [facility] [place] [address] Marcia Collins CRNP [address] [place] [address] 02/21/2024 1:30 PM EDT Office Visit Neurology [facility] [address] [place] [address] Shantel Mc PA-C [address] [place] [address] 02/28/2024 8:40 AM EDT Office Visit Neurology [facility] [address] [place] [address] Darron Calvillo MD [address] [place] [address] 03/18/2024 3:00 PM EST Office Visit Cardiology, [facility] [address] [place] [address] Marcia Collins CRNP [address] [place] [address] 10/24/2024 2:00 PM EDT Office Visit Dermatology [facility] [address] [place] [address] Mitchell Mack MD [address] [place] [address] Scheduled Procedures Name Priority Associated Diagnoses Date/Ti [...] filedocumented as of this encounter Care Teams Pipe Fittings Molder Relationship Specialty Start Date End Date Kaz Robledo MD [address] [place] [address] PCP - General Family Medicine 03/05/17 documented as of this encounter
--- OUTSIDE RECORDS SUMMARY | 2023-10-19 07:18 | External Medical Summary | Summary of Care ---
Author Name Unknown Organization [facility] Address [address] [place] [address] Phone [phone] Care Team Providers Care Cath Lab Manager Name Role Phone Kaz Robledo MD Primary Care Provider +1- [phone] Encounter Details Date Type Department Care Team (Late st Contact Info) Description 10/02/2023 Telephone Neurology [facility] [address] [place] [address] Shantel Zhou MD [address] [place] [address] Allergies Active Allergy Reactions Criticality Noted Date [...] 24 Hour (Imdur)Indications:C oronary artery disease involving [place] coronary artery of [place] heart without angina pectoris,Chronic coronary artery disease [...] disorder 02/15/2012 09/03/2017 Genetic Sleep Disorder Resea [facility] Other*[id number] 06/26/2011 12/08/2015 EXAMINATION OF PARTICIPANT I N CLINICAL TRIAL-Genomics 06/04/2009 08/20/2009 Overview: Renamed Per Clinical Trials Billing Project. Study Titile: Genomic Markers for Patients with Cardiovascular Disease Project #[id number] PI: Radha Yepez MD Please call [phone] with study related questions GENOMICS CARDIO RESEARCH OTHER*[id number] 06/04/2009 06/13/2016 Overview: Renamed Per Clinical Trials Billing Project. Study Titile: Genomic Markers for Patients with Cardiovascular Disease Project #[id number] PI: Radha Yepez MD Please call [phone] with study related questions Benign neoplasm of [...] Encounter - Justina Acosta LPN - 10/02/2023 5:06 PM EDT Talked to POA, informed of the BP issues and alertness to take patient to hospital if he's still having issues. Verbalized understanding. Asked me to also send it as a myG * Telephone Encounter - Justina Acosta LPN [...] Description 11/05/2023 1:00 PM EDT Office Visit [facility] [address] [place] [address] Kaz Robledo MD [address] [place] [address] 11/23/2023 2:40 PM EDT Office Visit Neurology [facility] 200 [facility] [place] [address] Shantel Mc PA-C 200 [facility] [place] [address] 12/11/2023 8:00 AM EDT Imaging Vascular Lab, [facility] 2nd [facility] 132 [facility] [place] [address] 12/11/2023 9:00 AM EDT Imaging Vascular Lab, [facility] 2nd [facility] 132 [facility] [place] [address] 12/19/2023 8:30 AM EDT Office Visit Vascular Surgery, [facility] 132 [place] [address] Rancho Soler MD [address] [place] [address] 12/26/2023 9:00 AM EDT Office Visit Cardiology, [facility] [address] [place] [address] Marcia Collins CRNP 132 [place] [address] 02/21/2024 1:30 PM EDT Office Visit Neurology [facility] [address] [place] [address] Shantel Mc PA-C 200 [facility] [place] [address] 02/28/2024 8:40 AM EDT Office Visit Neurology [facility] [address] [place] [address] Darron Calvillo MD [address] [place] [address] 03/18/2024 3:00 PM EST Office Visit Cardiology, [facility] [address] [place] [address] Marcia Collins CRNP 132 [facility] [address] 10/24/2024 2:00 PM EDT Office Visit Dermatology [facility] [address] [place] [address] Mitchell Mack MD 200 [facility] [place] [address] Scheduled Procedures Name Priority Associated Diagnoses Date/Ti me COLONOSCOPY FLEXIBLE PROXIMAL DIAGNOSTIC Recall History of colon polyps Health Maintenance Due Date Last Done Comments Alpha-1 Antitrypsin 1963 Colonoscopy 03/20/2020 03/20/2019, 03/07, 10/15/2017, Additional history exists COVID-19 Vaccine (2022- season) 2023 02/15/2022, 10/06/2021, 03/02/2021, Additional history [...] filedocumented as of this encounter Care Teams Cath Lab Manager Relationship Specialty Start Date End Date Kaz Robledo MD [address] [place] [address] PCP - General Family Medicine 03/05/17 documented as of this encounter
--- OUTSIDE RECORDS SUMMARY | 2023-10-19 07:19 | External Medical Summary | Summary of Care ---
Author Name Unknown Organization [facility] Address [address] [facility] [place] [address] Phone [phone] Care Team Providers Care Hardware Press Operator Name Role Phone Kaz Robledo MD Primary Care Provider [phone] Reason for Visit * Reason Comments Follow Up Encounter Details Date Type Department Care Team (Late st Contact Info) Description 10/02/2023 10:30 AM EDT Office Visit Cardiology, [facility] [address] [place] [address] Marcia Collins CRNP [address] [place] [address] Coronary artery disease involving benton coronary artery of benton heart without angina pectoris*; Chest pain, unspecified type; HTN, goal below 140/90; Labile blood pressure; Paroxysmal atrial flutter (HCC); DYSLIPIDEMIA, GOAL LDL BELOW 100 Allergies Active Allergy Reactions Criticality Noted Date [...] Take by mouth daily. 60 Tab 0 0 Active NITROGLYCERIN 0.4 MG SL SUBLIndications:St able angina (HCC) 1 TAB EVERY 5 MIN NEEDED, UP TO 3 PER EPISODE 25 Tab 5 4 Active Additional Information Patient taking differently:Sublingual,Indications: reviewed exp date was exp 12/26 now pitched and new bottle will exp 04/27, Reported on 07/03/2022 docusate sodium (COLACE) 100 MG CapsuleIndications :take one by mouth every other day as needed Take 1 Capsule by mouth daily as needed. Active Folic Acid 400 MCG Tablet Take 1 Tablet by mouth in the morning. 30 Tab 0 6 Active Coenzyme Q10 (CO Q-10) 400 MG CAPS Take 1 Cap by mouth once. 30 Cap 0 6 Active Cholecalciferol (VITAMIN D) 1000 units Tablet Take 1 Tablet by mouth every other day. 8 Active Ketoconazole 2 % External CreamIndications:S eborrheic dermatitis Apply to face 2-3 x's per week. 30 g 4 0 Active Diclofenac Sodium 1 % External GelIndications:Acu te pain of right shoulder Apply 4 gm topically to right shoulder 4 times a day 200 g 1 1 Active Polyethylene Glycol 3350 17 GM/SCOOP Oral Powder (MiraLax)Indicatio ns:Chronic constipation Take 17 g by mouth daily. Dissolve one heaping tablespoon in 8 ounces of water or juice. If after one week, bowels are not moving well, take twice a day 850 g 1 1 Active Triamcinolone Acetonide 0.1 % External Cream (Aristocort)Indica tions:Hand erythema Apply topically to affected area 2 times a day. To affected area. 45 g 3 Active Cilostazol 100 MG Oral Tablet (Pletal) take 1 tablet by mouth twice a day ON AN EMPTY STOMACH 180 Tablet 3 3 Active Terazosin HCl 1 MG Oral Capsule (Hytrin)Indication s:HTN, goal below 140/90 Take 1 Capsule by mouth at bedtime. 90 Capsule 3 3 Active Lisinopril 40 MG Oral Tablet Take 1 Tablet by mouth in the morning 90 Tablet 3 3 Active Citalopram Hydrobromide 20 MG Oral Tablet (CeleXA)Indication s:Major depressive disorder, recurrent episode, mild (HCC) Take 1 Tablet by mouth in the morning. 90 Tablet 3 3 Active Metoprolol Succinate ER 25 MG Oral Tablet Extended Release 24 Hour (toPROL XL) Take 1 Tablet by mouth at bedtime. 90 Tablet 3 3 Active Fluocinonide 0.05 % External SolutionIndication s:Seborrheic dermatitis Apply to scalp daily Sunday thru as needed for redness and flaking 60 mL 2 4 Active Ketoconazole 2 % External Shampoo (Nizoral)Indicatio ns:Seborrheic dermatitis Apply to scalp 2-3 x's per week. 360 mL 5 4 Active Isosorbide Mononitrate ER 30 MG Oral Tablet Extended Release 24 Hour (Imdur)Indications :Coronary artery disease involving benton coronary artery of benton heart without angina pectoris,Chronic coronary artery disease TAKE ONE TABLET BY MOUTH EVERY DAY IN THE MORNING 90 Tablet 3 4 05/29/19 25 Active amLODIPine Besylate 10 MG Oral Tablet (Norvasc) TAKE ONE TABLET BY MOUTH EVERY MORNING 90 Tablet 3 4 07/20/19 25 Active Apixaban 5 MG Oral Tablet (Eliquis)Indicatio ns:New onset atrial flutter (HCC) Take 1 Tablet by mouth in the morning and 1 Tablet before bedtime. 180 Tablet 3 4 Active Repatha SureClick 140 MG/ML Subcutaneous Solution Auto-injector (evolocumab) Inject 140 mg (1 pen) under the skin every 14 days. Remove from refrigerator 30 minutes prior to injection. 2 mL 3 4 Active clonazePAM 0.5 MG Oral Tablet (KlonoPIN)Indicati ons:Sleep disorder,Adjustmen t disorder with mixed anxiety and depressed mood TAKE 1 TO 2 TABLETS BY MOUTH ONCE DAILY AT BEDTIME FOR SLEEP 60 Tablet 4 Active Carbidopa-Levodopa 25-100 MG Oral Tablet (Sinemet)Indicatio ns:Parkinson's disease without dyskinesia or fluctuating manifestations (HCC) take 1 tablet twice a day with meals for 5 days then 1 tablet three times a day with meals 270 Tablet 1 4 Active Gabapentin 100 MG Oral Capsule (Neurontin) 1 tab at bedtime x 7 days then 1 tab twice daily x 7 days then 1 tab three times daily 90 Capsule 2 4 10/02/19 24 Discontinued Apixaban 5 MG Oral Tablet (Eliquis)Indicatio ns:New onset atrial flutter (HCC) Take 1 Tablet by mouth in the morning and 1 Tablet before bedtime. 10 Tablet 4 10/02/19 24 Discontinued documented as of this encounter (statuses as [...] disorder 02/15/2012 09/03/2017 Genetic Sleep Disorder [facility] Other*[id number] 06/26/2011 12/08/2015 EXAMINATION OF PARTICIPANT I N CLINICAL TRIAL-Genomics 06/04/2009 08/20/2009 Overview: Renamed Per Clinical Trials Billing Project. Study Titile: Genomic Markers for Patients with Cardiovascular Disease Project #[id number] PI: Radha Yepez MD Please call [phone] with study related questions GENOMICS CARDIO RESEARCH OTHER*[id number] 06/04/2009 06/13/2016 Overview: Renamed Per Clinical Trials Billing Project. Study Titile: Genomic Markers for Patients with Cardiovascular Disease Project #[id number] PI: Radha Yepez MD Please call [phone] with study related questions Benign neoplasm of [...] Valent (Prevnar) 02/02/2015 Pneumococcal Polysaccharide PPV23 (Pneumovax) 01/24/2010 Seasonal Influenza, PF, 6 M & above, IM , (FluLaval or Fluzone) 01/14/2020,02/05/2019,02/25/2018,01/25 Seasonal Influenza, Quadriva lent Hd (Fluzone Hd) 04/24/2023,01/10/2022,02/02/2021 Seasonal Influenza, Quadriva lent, No Preserve, IM 01/31/2016,02/01/2015 Seasonal Influenza, Split, I IV3, With Preserve, Inj 01/21/2014,01/15/2013,01/20/2012,01/23,01/24/2010,01/20/2009,03/09/2008 ,02/06/2007,03/17/2006 TD, Preservative Free 08/26/2018 TDAP (age 11 [...] on file documented as of this encounter Last Filed Vital Signs Vital Sign Reading Time Taken Comments Blood Pressure 110/50 10/02/2023 11:19 AM EDT Pulse 76 10/02/2023 10:31 AM EDT Temperature - - Respiratory Rate - - Oxygen Saturation 96% 10/02/2023 10:31 AM EDT Inhaled Oxygen Concentration - - Weight 94.3 kg (208 lb) 10/02/2023 10:31 AM EDT Height - - Body Mass Index 29.84 07/16/2023 2:20 PM EDT documented in this encounter Progress Notes * Marcia Collins CRNP - 10/02/2023 10:30 AM EDT 10/02/2023 Cardiology Follow Up Primary Monkey Keeper: JAGDISH Cardiac Problems: 1. 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 2. History of postprandial angina resolved. 3. Carotid occlusive disease. 4. Hypertension. 5. Hyperlipidemia. 6. Erectile dysfunction. 7. Peripheral arterial disease. 8. Subarachnoid/subdural hematoma. 9. History of intolerance to atorvastatin. HPI: Landen Camacho is a 78 year old male presents for close follow up Patient was last seen for an acute visit on 08/24/23 for concerns of feeling woozy. He had been started on Gabapentin and topiramate by both a PCP and Neurology. He reported that he had only taken onedose of the Gabapentin and stopped due to how it made him feel. Patient had reported ongoing chest pain episodes for which he was taking SL NTG. He had recent negative stress testing. He was feeling incredibly anxious and endorsed a lot of stressors. EKG obtainedat time of appt which demonstrated Atrial Flutter with incomplete Right BBB, Left anterior fasicular block and non- specific ST abnormality. Patient had a resting echocardiogram and Nuclear stress test May 2023 which was negative for ischemia. There is notation of moderate aortic calcification, but it is not restricting the way in which the valve opens or closes. Patient was sent for blood work and subsequent CTA to exclude PE due to elevated d-dimer in the setting of new onset atrial flutter. Was to continue his toprol xl and start Eliquis for reduction of athromboembolic event. Patient presents today feeling poorly. He has brought his daughter along. Patient complains of ongoing tremors and weakness. His Blood pressure today is low. He continues to endorse chest pain, he endorses taking a lot of SL NTG 1 possibly 2 on a daily basis. He claims that it is only happening when he is "exerting himself". Daughter states that patient is not telling her this. He was recently seen by Neurology and placed on Cabadopa/levadopa. He is not showing recordings of labile blood pressures. Systolic 200's and as low 80's systolic. He is feeling frustrated with how he feels on each of the neuro medications with no change or decrease in his tremor. BP low today, improved on repeat. Patient is keeping a log for us and BP have been stable up until this point. Reports compliance on all medication therapies with no untoward effects EKG obtained today demonstrates sinus bradycardia, rate 50bpm, left anterior fascicular block. REVIEW OF SYSTEMS: See HPI for pertinent positives. All others negative other than those noted in the HPI. CONSTITUTIONAL: No change in weight, No weakness, No fatigue and No fevers, No sweats or chills. PULMONARY: No cough, sputum, or hemoptysis, No wheezing, No shortness or breath and No recent change in breathing. CARDIOVASCULAR: No chest pain, No dyspnea on exertion, No edema, No palpitations and No syncope. GASTROINTESTINAL: No abdominal pain, No change in bowel habits, No significant heartburn, No nausea, No vomiting, No diarrhea, No constipation, No blood in stools or black tarry stools. No dysphagia. HEMATOLOGIC: No abnormal bleeding and No bruising. NEUROLOGICAL: Normal balance, No headaches and No weakness. Review of patient's allergies indicates: Allergen Reactions Atorvastatin Muscle pain Bee Stings Hives,intense itching,edema Gabapentin "Couldn't handle it" Current Outpatient Medications Medication Sig Dispense Refill LOW-DOSE ASPIRIN 81 MG PO TABS one daily DAILY MULTIVITAMIN PO TABS 1 tablet daily CALCIUM 500 MG PO TABS Take by mouth daily. 60 Tab 0 docusate sodium (COLACE) 100 MG Capsule Take 1 Capsule by mouth daily as needed. Folic Acid 400 MCG Tablet Take 1 Tablet by mouth in the morning. 30 Tab 0 Coenzyme Q10 (CO Q-10) 400 MG CAPS Take 1 Cap by mouth once. 30 Cap 0 Cholecalciferol (VITAMIN D) 1000 units Tablet Take 1 Tablet by mouth every other day. Ketoconazole 2 % External Cream Apply to face 2-3 x's per week. 30 g 4 Polyethylene Glycol 3350 17 GM/SCOOP Oral Powder (MiraLax) Take 17 g by mouth daily. Dissolve one heaping tablespoon in 8 ounces of water or juice. If after one week, bowels are not moving well, taketwice a day 850 g 1 Triamcinolone Acetonide 0.1 % External Cream (Aristocort) Apply topically to affected area 2 times a day. To affected area. 45 g 0 Cilostazol 100 MG Oral Tablet (Pletal) take 1 tablet by mouth twice a day ON AN EMPTY STOMACH 180 Tablet 3 Terazosin HCl 1 MG Oral Capsule (Hytrin) Take 1 Capsule by mouth at bedtime. 90 Capsule 3 Lisinopril 40 MG Oral Tablet Take 1 Tablet by mouth in the morning 90 Tablet 3 Citalopram Hydrobromide 20 MG Oral Tablet (CeleXA) Take 1 Tablet by mouth in the morning. 90 Tablet3 Metoprolol Succinate ER 25 MG Oral Tablet Extended Release 24 Hour (toPROL XL) Take 1 Tablet by mouth at bedtime. 90 Tablet 3 Fluocinonide 0.05 % External Solution Apply to scalp daily Sunday thru as needed for redness and flaking 60 mL 2 Ketoconazole 2 % External Shampoo (Nizoral) Apply to scalp 2-3 x's per week. 360 mL 5 Isosorbide Mononitrate ER 30 MG Oral Tablet Extended Release 24 Hour (Imdur) TAKE ONE TABLET BY MOUTH EVERY DAY IN THE MORNING 90 Tablet 3 amLODIPine Besylate 10 MG Oral Tablet (Norvasc) TAKE ONE TABLET BY MOUTH EVERY MORNING 90 Tablet 3 Apixaban 5 MG Oral Tablet (Eliquis) Take 1 Tablet by mouth in the morning and 1 Tablet before bedtime. 180 Tablet 3 Repatha SureClick 140 MG/ML Subcutaneous Solution Auto-injector (evolocumab) Inject 140 mg (1 pen) under the skin every 14 days. Remove from refrigerator 30 minutes prior to injection. 2 mL 3 clonazePAM 0.5 MG Oral Tablet (KlonoPIN) TAKE 1 TO 2 TABLETS BY MOUTH ONCE DAILY AT BEDTIME FOR SLEEP 60 Tablet 0 Carbidopa-Levodopa 25-100 MG Oral Tablet (Sinemet) take 1 tablet twice a day with meals for 5 days then 1 tablet three times a day with meals 270 Tablet 1 NITROGLYCERIN 0.4 MG SL SUBL 1 TAB EVERY 5 MIN NEEDED, UP TO 3 PER EPISODE (Patient taking differently: Place under the tongue.) 25 Tab 5 Diclofenac Sodium 1 % External Gel Apply 4 gm topically to right shoulder 4 times a day 200 g 1 No current facility-administered medications for this visit. Past Medical History: Diagnosis Date Allergic disorder bee sting Basal cell cancer 11/04/2013 Benign neoplasm of colon 05/11/2008 adenomatous/repeat colonoscopy in 3 yrs Carotid stenosis, non-symptomatic Carotid stenosis, non-symptomatic left side totally obstructed CHR ISCHEMIC HRT DIS NEC 07/08/2009 total occlusion of the proximal LAD with [id number] collaterals with 50% diffuse mid RCA Depressive disorder, not elsewhere classified Dyslipidemia, goal to be determined Other acute sinusitis Subdural hemorrhage (HCC) Family History Problem Relation Name Age of Onset No Past Hx Mother Lived until 86 Mental Disorder Father "black lung", cone examiner No Past Hx Son Asthma Daughter ? Other (AAA) Daughter Denies FH of AAA Social History Socioeconomic History Marital status: Number of children: 2 Occupational History Comment: unemployed Tobacco Use Smoking status: Former Current packs/day: 0.00 Average packs/day: 0.8 packs/day for 30.0 years (22.5 ttl pk-yrs) Types: Cigarettes Start date: 05/07/1972 Quit date: 05/07/2002 Years since quittin.4 Passive exposure: Past Smokeless tobacco: Never Tobacco comments: no smoking since 2002 Vaping Use Vaping status: Never Used Substance and Sexual Activity Alcohol use: No Drug use: No Sexual activity: Yes Partners: Female Social History Narrative Works at [employer] in [place] Social Determinants of Health Food Insecurity: No Food Insecurity (01/22/2023) Hunger Vital Sign Worried About Running Out of Food in the Last Year: Never true Ran Out of Food in the Last Year: Never true OBJECTIVE/PHYSICAL EXAMINATION: BP 110/50 | Pulse 76 | Wt 94.3 kg (208 lb) | SpO2 96% | BMI 29.84 kg/m | BSA 2.16 m General: No acute distress. A+Ox3. HEENT: Normocephalic. Atraumatic. PERRL. EOMI. Conjunctiva and sclera clear. NECK: No carotid bruits. No JVD. Carotid upstrokes are brisk. Heart: RRR. S1 and S2 noted. No murmur. No rubs or gallops. PMI non displaced. Lungs: Clear to auscultation. No wheezes.No rhonchi. No rales. Abdomen: Normal bowel sounds. Soft. Nontender. No masses or organomegaly. No abdominal bruits. Extremities: No edema. No clubbing or cyanosis. Pulses: radial=2/4, posterior tibial=2/4, dorsalis pedis = 2/4. NEURO: No focal deficits. PSYCH: Appropriate affect and insight. DATA Labs & Imaging Reviewed Below: Echocardiogram 05/22/23 The examination is adequate to evaluate the referral indication. There was normal sinus rhythm during the examination. The LV wall thickness is mildly increased (concentric). The left ventricular wall motion is normal. The qualitative LV ejection fraction is 55-59% (normal). The aortic valve has three leaflets. There is moderate focal calcification of the non coronary cusp of the aortic valve . Aortic stenosis is absent. There is no significant aortic regurgitation. The left ventricular diastolic function is mildly abnormal (grade I Nuclear stress test 05/22/2023 The myocardial perfusion imaging is normal with no evidence of scar or inducible ischemia. The stress EKG response is negative for ischemia. Symptoms reported as described below that are difficult to distinguish between angina and side effect of the regadenoson. Gated SPECT imaging reveals normal myocardial thickening and wall motion. The left ventricular ejection fraction was calculated to be 73%. EKG 03/13/2023 Normal sinus rhythm Left anterior fascicular block Moderate voltage criteria for LVH, may be normal variant Abnormal ECG When compared with ECG of 12-JAN-2023 14:29, No significant change was found Ventricular Rate: 68 EKG 07/03/22 Normal sinus rhythm Left anterior fascicular block Left ventricular hypertrophy Abnormal ECG When compared with ECG of 17-JUN-2021 13:13, Incomplete right bundle branch block is no longer Present Ventricular Rate: 68 EKG 05/27/2022 Normal sinus rhythm Incomplete right bundle branch block Borderline ECG When compared with ECG of 27-JAN-2019 15:25, No significant change was found Ventricular Rate: 63 Echocardiogram 06/07/2017 The left ventricular cavity size is normal. The LV wall thickness is moderately increased (concentric). The left ventricular wall motion is normal. The qualitative LV ejection fraction is 6064% (normal). The left ventricular diastolic function is mildly abnormal (grade I). Moderate aortic valve sclerosis is present. There is focal thickening of the non coronary cusp Aortic stenosis is absent. The aortic root is mildly enlarged. ASSESSMENT/PLAN: 78 year old year old male 1. Coronary artery disease involving benton coronary artery of benton heart without angina pectoris 2. Chest pain, unspecified type -patient with ongoing chest pain symptoms with exertion. Relieved with rest and SL NTG. Expressed concern over patient's increased use of NTG. -Discussed his ongoing symptoms despite negative stress test and consideration to purdue a cardiac catheterization for ongoing concerns. Patient would like to talk to neurology first to adjust medications, and will discuss consideration for heart cath with his daughter. -Continue Imdur, amlodipine, Lisinopril, and Terazosin. Also continue Repatha, and ASA 81mg - EKG COMPLETE (TRACING AND INTERP) 3. HTN, goal below 140/90 4. Labile blood pressure - EKG COMPLETE (TRACING AND INTERP) -patient is on multiple anti-hypertensive therapies, but since starting Carbidopa-Levodopa he has had several labile readings with systolics ranging from 80's-low 200's. -Daughter is going to reach out to neurology today to further discuss this medication and possible discontinuation. Patient feels "lousy" on it, and feels as though he would rather just deal with thetremor. 5. Paroxysmal atrial flutter (HCC) -EKG today demonstrates Sinus bradycardia, no ectopy. -Continue to Toprol xl, may need to consider dose decrease in future -Continue Eliquis, no bleeding concerns. - EKG COMPLETE (TRACING AND INTERP) 6. DYSLIPIDEMIA, GOAL LDL BELOW 100 -Continue with Repatha and routine labs. - EKG COMPLETE (TRACING AND INTERP) DISPOSITION: Follow up 3 months or if symptoms worsen/fail to improve. All questions were answered to the patients satisfaction. Patient advised to report to ED with any and all emergencies. The patient agrees to the above plan and will call with additional questions or concerns. FREDERIC [place] Cardiology, [facility] [address] [facility] [place] [id number] I spent a total of 50 minutes on the date of service in preparation, delivery, and documentation ofthe care provided to Landen Camacho excluding any time spent in the performance of separately billed services. This chart was completed in part utilizing [employer] Speech Voice Recognition Software. Grammatical errors, random word insertions, pronoun errors, and incomplete sentences are an occasional consequence of this system due to software limitations, ambient noise, and hardware issues. Any formal questions or concerns about the content, text, or information contained within the body of this dictation should be directly addressed to the provider for clarification. documented in this encounter Nursing Notes * Shelia Valencia CMA - 10/02/2023 10:29 AM EDT Examination Room: 6 Name: Landen Camacho Date of : (1945) Reason for Visit: 6m Interim Hospitalization(s): none Problems/Concerns: BP all over the place. Concerns regarding the carb-levo Chest Pain/SOB: chest pain and SOB. Has been taking nitro often. My [facility] is a way you can talk to your provider online through e-mail. Would you like to sign up? I can activate it for you? ALREADY ACTIVE Patient was instructed to not get up on the exam table until directed and assisted by their provider; patient is to remain seated in the chair/ wheelchair/ exam table for fall prevention and safety reasons. Patient is aware to have assistance to step down off exam table with personnel. Patient voiced full comprehension of instructions. documented in this encounter Plan of Treatment Upcoming Encounters Date Type Department Care Team (Late st Contact Info) Description 11/05/2023 1:00 PM EDT Office Visit [facility] [address] [place] [id number] Kaz Robledo MD [address] [place] [address] 11/23/2023 2:40 PM EDT Office Visit Neurology [facility] [address] [facility] [place] [address] Shantel Mc PA-C [address] [facility] [place] [address] 12/11/2023 8:00 AM EDT Imaging Vascular Lab, [facility] [address] [facility] [place] [address] [facility] [place] [address] 12/11/2023 9:00 AM EDT Imaging Vascular Lab, [facility] [address] [facility] [address] [place] [address] 12/19/2023 8:30 AM EDT Office Visit Vascular Surgery, [facility] [address] [facility] [place] [address] Rancho Soler MD [address], [place] [id number] 12/26/2023 9:00 AM EDT Office Visit Cardiology, [facility] [address] [place] [address] Marcia Collins CRNP [address] [facility] [place] [address] 02/21/2024 1:30 PM EDT Office Visit Neurology [facility] [address] [place] [address] Shantel Mc PA-C [address] [place] [address] 02/28/2024 8:40 AM EDT Office Visit Neurology [facility] [address] [place] [address] Darron Calvillo MD [address] [place] [address] 03/18/2024 3:00 PM EST Office Visit Cardiology, [facility] [address] [facility] [place] [address] Marcia Collins CRNP [address] [place] [address] 10/24/2024 2:00 PM EDT Office Visit Dermatology [facility] Neelam Styles [address] [facility] [place] [address] Mitchell Mack MD [address] [facility] [place] [address] Scheduled Orders Name Type Priority Associated Diagnoses Orde r Schedule EKG COMPLETE (TRACING AND INTERP) EKG Routine Chest pain, unspecified type HTN, goal below 140/90 Paroxysmal atrial flutter (HCC) DYSLIPIDEMIA, GOAL LDL BELOW 100 Ordered: 10/02/2023 Scheduled Procedures Name Priority Associated Diagnoses Date/Ti me COLONOSCOPY FLEXIBLE PROXIMAL DIAGNOSTIC Recall History of colon polyps Health Maintenance Due Date Last Done Comments Alpha-1 Antitrypsin 1963 Colonoscopy 03/20/2020 03/20/2019, 03/07, 10/15/2017, Additional history exists COVID-19 Vaccine ( season) 2023 02/15/2022, 10/06/2021, 03/02/2021, Additional history exists *COPD SEVERITY VERIFIED BY PFT 05/28/2023 HbA1c 07/16/2024 07/17/2023, 0305/2022, 08/23/2021, Additional history exists GFR 08/23/2024 08/24/2023, [...] Not on filedocumented as of this encounter Visit Diagnoses Diagnosis Coronary artery disease involving benton coronary artery of benton heart without angina pectoris- Primary Chest pain, unspecified type HTN, goal below 140/90 Unspecified essential hypertension Labile blood pressure Elevated blood pressure reading without diagnosis of hypertension Paroxysmal atrial flutter (HCC) Atrial flutter DYSLIPIDEMIA, GOAL LDL BELOW 100 Other and unspecified hyperlipidemia documented in this encounter Care Teams Hardware Press Operator Relationship Specialty Start Date End Date Kaz Robledo MD [address] [place] [address] PCP - General Family Medicine 03/05/17 documented as of this encounter
--- OUTSIDE RECORDS SUMMARY | 2023-10-19 07:19 | External Medical Summary | Summary of Care ---
Author Name Unknown Organization [facility] Address [address] [place] [address] Phone [phone] Care Team Providers Care Machine Packager Name Role Phone Usha Michaels MD Primary Care Provider +1- [phone] Reason for Visit * Reason Comments Follow Up Skin check- no acute concerns today Encounter Details Date Type Department Care Team (Late st Contact Info) Description 09/28/2023 12:45 PM EDT Office Visit [facility] [address] [place] [address] Mitchell Mack MD 200 [place] [address] Actinic skin damage*; Skin neoplasm; Seborrheic keratoses; Hx of basal cell carcinoma; Scar Allergies Active Allergy Reactions Criticality Noted Date Comments Atorvastatin Muscle pain 12/11/2016 Bee Stings 02/21/1999 Hives,intense itching,edema documented as of this encounter (statuses as of 09/28/2023) Medications Medication Sig Dispensed Refills Start Date [...] 24 Hour (Imdur)Indications:C oronary artery disease involving lime coronary artery of lime heart without angina pectoris,Chronic coronary artery disease TAKE ONE TABLET BY MOUTH EVERY DAY IN THE MORNING 90 Tablet 3 05/30/2023 5 Active amLODIPine Besylate 10 MG Oral Tablet (Norvasc) TAKE ONE TABLET BY MOUTH EVERY MORNING 90 Tablet 3 07/20/2023 5 Active Gabapentin 100 MG Oral Capsule (Neurontin) 1 tab at bedtime x 7 days then 1 tab twice daily x 7 days then 1 tab three times daily 90 Capsule 2 08/17/2023 Active Additional Information Patient not taking.Reported on 08/24/2023 Apixaban 5 MG Oral Tablet (Eliquis)Indications :New onset atrial flutter (HCC) Take 1 Tablet by mouth in the morning and 1 Tablet before bedtime. 180 Tablet 3 08/24/2023 Active Apixaban 5 MG Oral Tablet (Eliquis)Indications :New onset atrial flutter (HCC) Take 1 Tablet by mouth in the morning and 1 Tablet before bedtime. 10 Tablet 08/24/2023 Active Repatha SureClick 140 MG/ML Subcutaneous [...] as of this encounter (statuses as of 09/28/2023) Active Problems Problem Noted Date Diagnosed Date [...] as of this encounter (statuses as of 09/28/2023) Resolved Problems Problem Noted Date Diagnosed Date [...] disorder 02/15/2012 09/03/2017 Genetic Sleep Disorder Resea [facility] Other*[id number] 06/26/2011 12/08/2015 EXAMINATION OF PARTICIPANT I N CLINICAL TRIAL-Genomics 06/04/2009 08/20/2009 Overview: Renamed Per Clinical Trials Billing Project. Study Titile: Genomic Markers for Patients with Cardiovascular Disease Project #[id number] PI: Radha Yepez MD Please call [phone] with study related questions GENOMICS CARDIO RESEARCH OTHER*[id number] 06/04/2009 06/13/2016 Overview: Renamed Per Clinical Trials Billing Project. Study Titile: Genomic Markers for Patients with Cardiovascular Disease Project #[id number] PI: Radha Yepez MD Please call [phone] with study related questions Benign neoplasm of [...] consciousness 07/09/2007 09/03/2017 Subjective tinnitus 07/09/2007 08/22/19 ADVANCE DIRECTIVE INFORMATION 04/06/2006 09/03/2017 Overview: Yes, Patient instructed to provide copy of advance directive for provider to review and to be scanned into Electronic Medical Record Dyslipidemia, goal to be determined 02/03/2005 04/15/2009 Overview: Per Lipid Taxonomy. IMPOTENCE, ORGANIC ORIGN Tobacco use disorder 010 Major depressive disorder Overview: history documented as of this encounter (statuses as of 09/28/2023) Immunizations Name Administration Dates Next Due COVID-19 [...] on file documented as of this encounter Progress Notes * Mitchell Mack MD - 09/28/2023 12:53 PM EDT SUBJECTIVE: Chief Complaint: Chief Complaint Patient presents with Follow Up Skin check- no acute concerns today HPI: Landen Camacho is a 78 year old male seen for a full skin check for history of nonmelanoma skin cancer. No spots he's concerned about Recently diagnosed with Parkinson's DERMATOLOGIC HISTORY: BCC on the central lower back 01/23, pigmented BCC on the left chest 07/23, BCC on the right upper arm 06/24, BCC's x 2 on the central lower back 05/23, BCC right nasolabial fold 11/19, BCC's left jawline09/19, left oral commissure 11/18, 12/18, left lower back, chest 11/15 and neck 2000. REVIEW OF SYSTEMS: CONSTITUTIONAL: negative SKIN: No new or changing moles or rashes other than those noted in HPI HEME/LYMPH: No new or enlarging lumps or bumps OBJECTIVE: GEN: Healthy, alert, no distress, appears oriented, pleasant, and cooperative SKIN: Detailed exam of hair, face, trunk, arms, and legs A. Left upper back - 5mm indurated pink papule - BCC? Scar? Well-healed scar(s) at primary site(s) without evidence of recurrence Scattered on face, chest, back - diffuse mottled hypopigmented and hyperpigmented macules without significant irregularity. Associated telangiectasias At the trunk and extremities are several scattered mcgrath/brown hyperkeratotic stuck on appearing waxypapules. ASSESSMENT/PLAN: Skin neoplasm A. Left upper back - indurated pink papule - BCC? Scar? Procedure - Shave/Curette HOLD FOR PATH Shave of the lesion(s) noted above to remove and confirm diagnosis. The procedure, risks, benefits,alternatives and expected outcomes were discussed with the patient and consent was obtained. Time out called. Patient identified, procedure verified, site(s) identified and verified. Patient and staff present in agreement. Area prepped with alcohol and anesthetized using 0.5% lidocaine with epinephrine at 1:200,000 concentration. Shave of lesion(s) performed. 20% AlCl and bandaging applied. Specimen(s) sent to pathology. Patient instructed in routine post-op care. The lesion(s) was/were curetted for cure. Size of lesion: 5mm Size of wound after currettage: 13mm Scar(s), History of Nonmelanoma Skin Cancer - Well healed scar(s) with no evidence of recurrence - Recommended periodic skin exams and instructed to call clinic if patient notices any changing lesions, including rapid enlargement, changes in color or shape or symptoms, bleeding, or other concerns. The common features and behavior of non-melanoma skin cancers (e.g. basal cell carcinoma/squamouscell carcinoma) as well as the features of melanoma were also reviewed. -Daily sun protection recommended including physical (i.e. clothing) and chemical blockers. Broad spectrum sunscreens with at least SPF 30 for UVA and UVA protection were recommended. Chronic Actinic Damage - Discussed that skin changes are due to chronic sun exposure. - Daily sun protection recommended as discussed above Seborrheic keratoses - The benign nature of these lesions was discussed with the patient and that no treatment is indicated today. Mitchell Mack MD Ref: SELF[[id number]] NO STREET ADDRESS AVAILABLE None (office) None (fax) PCP: USHA MICHAELS [address] [place], [place] [id number] documented in this encounter Nursing Notes * Page Robbins LPN - 09/28/2023 12:38 PM EDT Patient identified by name and date of . Do you have any concerns about pain management for today's visit? No Living Will or Advance Directive for Health Care as noted on problem list. [facility] is a way you can talk to your provider online through e-mail. Would you like to sign up? I can activate it for you? ALREADY ACTIVE Chief Complaint Patient presents with Follow Up Skin check- no acute concerns today documented in this encounter Plan of Treatment Upcoming Encounters Date Type Department Care Team (Late st Contact Info) Description 10/02/2023 10:30 AM EDT Office Visit Cardiology, [facility] [address] [facility] [place] [address] Marcia Collins CRNP [address] [facility] [place] [address] 11/05/2023 1:00 PM EDT Office Visit [facility] [address] [place] [id number] Usha Michaels MD [address] [place] [address] 11/23/2023 2:40 PM EDT Office Visit Neurology [facility] [address] [place] [address] Shantel Mc PA-C [address] [place] [address] 12/11/2023 8:00 AM EDT Imaging Vascular Lab, [facility] [address] [facility] [place] [address] 12/11/2023 9:00 AM EDT Imaging Vascular Lab, [facility] [address] [facility] [place] [address] 12/19/2023 8:30 AM EDT Office Visit Vascular Surgery, [facility] [address] [facility] [place] [address] Rancho Soler MD [address] [place] [address] 02/21/2024 1:30 PM EDT Office Visit Neurology [facility] [address] [place] [address] Shantel Mc PA-C [address] [facility] [place] [address] 02/28/2024 8:40 AM EDT Office Visit [facility]rology [facility] [address] [place] [address] Darron Calvillo MD [address] [place] [address] 03/18/2024 3:00 PM EST Office Visit Cardiology, [facility] [address] [place] [address] Marcia Collins CRNP [address] [place] [address] 10/24/2024 2:00 PM EDT Office Visit Dermatology [facility] [address] [facility] [place] [address] Mitchell Mack MD [address] [facility] [place] [address] Pending Results Name Type Priority Associated Diagnoses Date /Time SURGICAL PATHOLOGY Pathology Routine Skin neoplasm 09/28/2023 1:01 PM EDT Scheduled Procedures Name Priority Associated Diagnoses Date/Ti me COLONOSCOPY FLEXIBLE PROXIMAL DIAGNOSTIC Recall History of colon polyps Health Maintenance Due Date Last Done Comments Alpha-1 Antitrypsin 1963 Colonoscopy 03/20/2020 03/20/2019, 03/07, 10/15/2017, Additional history exists COVID-19 Vaccine ( season) 2023 02/15/2022, 10/06/2021, 03/02/2021, Additional history exists *COPD SEVERITY VERIFIED BY PFT 05/28/2023 HbA1c 07/16/2024 07/17/2023, 03/0 05/2022, 08/23/2021, Additional history exists GFR 08/23/2024 08/24/2023, 07/05, 09/19/2022, Additional history exists O2 ASSESSMENT COMPLETED IN PAST YEAR FOR COPD 09/12/2024 09/13/2023 Albumin/Creatinine Ratio 07/17/2026 07/18/2023, 09/05 DTaP,Tdap,and Td [...] as of this encounter Visit Diagnoses Diagnosis Actinic skin damage- Primary Other dermatitis due to solar radiation Skin neoplasm Neoplasm of unspecified nature of bone, soft tissue, and skin Seborrheic keratoses Hx of basal cell carcinoma Personal history of other malignant neoplasm of skin Scar Scar condition and fibrosis of skin documented in this encounter Care Teams Machine Packager Relationship Specialty Start Date End Date Usha Michaels MD [address] [place] [address] PCP - General Family Medicine 03/05/17 documented as of this encounter
--- OUTSIDE RECORDS SUMMARY | 2023-10-19 07:19 | External Medical Summary | Summary of Care ---
Author Name Unknown Organization [facility] Address [address] [place] [address] Phone [phone] Care Team Providers Care Supervisor Asbestos Textile Name Role Phone Kaz Robledo MD Primary Care Provider [phone]- [phone] Encounter Details Date Type Department Care Team (Late st Contact Info) Description 10/02/2023 Telephone Neurology [facility] [address] [place] [address] Sahntel Zhou MD [address] [place] [address] Allergies Active Allergy Reactions Criticality Noted Date [...] 24 Hour (Imdur)Indications:C oronary artery disease involving [place] coronary artery of [place] heart without angina pectoris,Chronic coronary artery disease [...] disorder 02/15/2012 09/03/2017 Genetic Sleep Disorder Resea [facility] Other*[id number] 06/26/2011 12/08/2015 EXAMINATION OF PARTICIPANT I N CLINICAL TRIAL-Genomics 06/04/2009 08/20/2009 Overview: Renamed Per Clinical Trials Billing Project. Study Titile: Genomic Markers for Patients with Cardiovascular Disease Project #[id number] PI: Radha Yepez MD Please call [phone] with study related questions GENOMICS CARDIO RESEARCH OTHER*[id number] 06/04/2009 06/13/2016 Overview: Renamed Per Clinical Trials Billing Project. Study Titile: Genomic Markers for Patients with Cardiovascular Disease Project #[id number] PI: Radha Yepez MD Please call [phone] with study related questions Benign neoplasm of [...] the patients carbidopa-levodopa discontinued. They stated Marcia Curly wanted it canceled. documented in this encounter Plan of Treatment Upcoming Encounters Date Type Department Care Team (Late st Contact Info) Description 11/05/2023 1:00 PM EDT [facility] [address] [place] [phone] Kaz Robledo MD [address] [place] [address] 11/23/2023 2:40 PM EDT Office Visit [facility] [address] [place] [address] Shantel Mc PA-C [address] [place] [address] 12/11/2023 8:00 AM EDT Imaging Vascular Lab, [facility] [address] [facility] [place] [address] 12/11/2023 9:00 AM EDT Imaging Vascular Lab, [facility] [address] [place] [address] 12/19/2023 8:30 AM EDT Office Visit Vascular Surgery, [facility] [address] [facility] [place] [place] [address] Rancho Soler MD [address] [place], [place] [address] 12/26/2023 9:00 AM EDT Office Visit Cardiology, [facility] [address] [facility] [place] [place] [address] Marcia Collins CRNP 132 [place] [address] 02/21/2024 1:30 PM EDT Office Visit Neurology [facility] [address] [place] [address] Shantel Mc PA-C [address] [place] [address] 02/28/2024 8:40 AM EDT Office Visit Neurology [facility] [address] [place] [address] Darron Calvillo MD [address] [place] [address] 03/18/2024 3:00 PM EST Office Visit Cardiology, [facility] [address] [facility] [place] [place] [address] Marcia Collins CRNP [address] [facility] [place] [address] 10/24/2024 2:00 PM EDT Office [facility] [address] [place] [address] Mitchell Mack MD [address] [place] [address] Scheduled Procedures Name Priority Associated Diagnoses Date/Ti [...] filedocumented as of this encounter Care Teams Supervisor Asbestos Textile Relationship Specialty Start Date End Date Kaz Robledo MD [address] [place] [address] PCP - General Family Medicine 03/05/17 documented as of this encounter
--- OUTSIDE RECORDS SUMMARY | 2023-10-19 07:19 | External Medical Summary | Summary of Care ---
Author Name Unknown Organization [facility] Address [address] [place] [address] Phone [phone] Care Team Providers Care Director Public Policy Name Role Phone Kaz Robledo MD Primary Care Provider +1- [phone] Encounter Details Date Type Department Care Team (Late st Contact Info) Description 10/02/[address] [facility] [address] [place] [address] Shantel Zhou MD [address] [facility] [place] [address] Allergies Active Allergy Reactions Criticality Noted Date [...] 24 Hour (Imdur)Indications:C oronary artery disease involving [place] coronary artery of [place] heart without angina pectoris,Chronic coronary artery disease [...] disorder 02/15/2012 09/03/2017 Genetic Sleep Disorder [facility] Other*[id number] 06/26/2011 12/08/2015 EXAMINATION OF PARTICIPANT I N CLINICAL TRIAL-Genomics 06/04/2009 08/20/2009 Overview: Renamed Per Clinical Trials Billing Project. Study Titile: Genomic Markers for Patients with Cardiovascular Disease Project #[id number] PI: Radha Yepez MD Please call [phone] with study related questions GENOMICS CARDIO RESEARCH OTHER*[id number] 06/04/2009 06/13/2016 Overview: Renamed Per Clinical Trials Billing Project. Study Titile: Genomic Markers for Patients with Cardiovascular Disease Project #[id number] PI: Radha Yepez MD Please call [phone] with study related questions Benign neoplasm of [...] encounter Miscellaneous Notes * Telephone Encounter - Shantel Zhou MD [...] Description 11/05/2023 1:00 PM EDT Office Visit [address] [address] Kaz Robledo MD [address] [place] [address] 11/23/2023 2:40 PM EDT Office Visit Neurology [facility] [address] [place] [address] Shantel Mc PA-C [address] [place] [address] 12/11/2023 8:00 AM EDT Imaging Vascular Lab, [address] [place] [address] 12/11/2023 9:00 AM EDT Imaging Vascular Lab, [address] [place] [address] 12/19/2023 8:30 AM EDT Office Visit Vascular Surgery, [facility] [address] [place] [address] Rancho Soler MD [address] [place] [address] 12/26/2023 9:00 AM EDT Office Visit Cardiology, [facility] [address] [place] [address] Marcia Collins CRNP [address] [place] [address] 02/21/2024 1:30 PM EDT Office Visit Neu[facility] [address] [place] [address] Shantel Mc PA-C [address] [place] [address] 02/28/2024 8:40 AM EDT Office Visit Neu[facility] [address] [place] [address] Darron Calvillo MD [address] [place] [address] 03/18/2024 3:00 PM EST Office Visit Cardiology, [facility] [address] [place] [address] Marcia Collins CRNP [address] [place] [address] 10/24/2024 2:00 PM EDT Office Visit Dermatology [facility] 200 [facility] [place] [address] Mitchell Mack MD [facility] [address] Scheduled Procedures Name Priority Associated Diagnoses Date/Ti [...] filedocumented as of this encounter Care Teams Director Public Policy Relationship Specialty Start Date End Date Kaz Robledo MD [address] [place] [address] PCP - General Family Medicine 03/05/17 documented as of this encounter
--- OUTSIDE RECORDS SUMMARY | 2023-10-19 07:20 | External Medical Summary | Summary of Care ---
Author Name Unknown Organization [facility] Address [address] [facility] [address] Phone [phone] Care Team Providers Care Clinical Audiologist Name Role Phone Kaz Robledo MD Primary Care Provider [phone]- [phone] Reason for Referral * Precert (Within 24 hrs (call dept; emergent)) - Pending Review Specialty Diagnoses / Procedures Referred By Yuan peterson Referred To Contact Radiology Diagnoses New onset atrial flutter (HCC) Elevated d-dimer Chest pain, unspecified type Procedures CT PULMONARY EMBOLUS W CONTRAST Marcia Collins CRNP [address] [place] [address] Referral ID Status Reason Start Date Expiration Date V isits Requested Visits Authorized [id number] Pending Review 08/27/2023 999 999 Reason for Visit * Reason Onset Date Comments Outpatient Testing 08/27/2023 Encounter Details Date Type Department Care Team (Late st Contact Info) Description 08/27/2023 Telephone Cardiology, [facility] [address] [place] [address] Marcia Collins CRNP [address] [place] [address] Outpatient Testing Allergies Active Allergy Reactions Criticality Noted Date Comments Atorvastatin Muscle pain 12/11/2016 Bee Stings 02/21/1999 Hives,intense itching,edema documented as of this encounter (statuses as of 08/28/2023) Medications Medication Sig Dispensed Refills Start Date End Date Status LOW-DOSE ASPIRIN 81 MG PO TABS one daily 0 Active DAILY MULTIVITAMIN PO TABS 1 tablet daily 0 Active CALCIUM 500 MG PO TABS Take by mouth daily. 60 Tab 0 05/02/2010 Active NITROGLYCERIN 0.4 MG SL SUBLIndications:St able [...] 1 Capsule by mouth daily as needed. 0 Active Folic Acid 400 MCG Tablet Take 1 Tablet by mouth in the morning. 30 Tab 0 12/23/2015 Active Coenzyme Q10 (CO Q-10) 400 MG CAPS Take 1 Cap by mouth once. 30 Cap 0 12/23/2015 Active Cholecalciferol (VITAMIN D) 1000 units Tablet Take 1 Tablet by mouth every other day. 0 03/24/2018 Active Ketoconazole 2 % External CreamIndications:S eborrheic dermatitis Apply to face 2-3 x's per week. 30 g 4 02/05/2020 Active Diclofenac Sodium 1 % External GelIndications:Acu [...] day. To affected area. 45 g 0 10/17/2022 Active Cilostazol 100 MG Oral Tablet [...] 3 04/24/2023 Active Fluocinonide 0.05 % External SolutionIndication s:Seborrheic dermatitis Apply to scalp daily Sunday thru as needed for redness and flaking 60 mL 2 05/25/2023 Active Ketoconazole 2 % External Shampoo (Nizoral)Indicatio ns:Seborrheic dermatitis Apply to scalp 2-3 x's per week. 360 mL 5 05/25/2023 Active Isosorbide Mononitrate ER 30 MG Oral Tablet Extended Release 24 Hour (Imdur)Indications :Coronary artery disease involving [place] coronary artery of [place] heart without angina pectoris,Chronic coronary artery disease TAKE ONE TABLET BY MOUTH EVERY DAY IN THE MORNING 90 Tablet 3 05/30/2023 05/29/2024 Active clonazePAM 0.5 MG Oral Tablet (KlonoPIN)Indicati ons:Sleep disorder,Adjustmen t disorder with mixed anxiety and depressed mood TAKE 1 TO 2 TABLETS BY MOUTH ONCE DAILY AT BEDTIME FOR SLEEP 60 Tablet 0 07/16/2023 Active amLODIPine Besylate 10 MG Oral Tablet (Norvasc) TAKE ONE TABLET BY MOUTH EVERY MORNING 90 Tablet 3 07/20/2023 07/19/2024 Active Repatha Pushtronex System 420 MG/3.5ML Subcutaneous Solution Cartridge (Evolocumab with Infusor)Indication s:Dyslipidemia, goal LDL below 100,Chronic coronary artery disease,PAD (peripheral artery disease) (HCC) INJECT 420 MG UNDER THE SKIN EVERY MONTH -- ADMINISTER OVER 5 MINUTES -- REMOVE FROM REFRIGERATOR 45 MINUTES PRIOR TO INJECTION 10.5 mL 3 08/13/2023 08/12/2024 Active Gabapentin 100 MG Oral Capsule (Neurontin) 1 tab at bedtime x 7 days then 1 tab twice daily x 7 days then 1 tab three times daily 90 Capsule 2 08/17/2023 Active Additional Information Patient not taking.Reported on 08/24/2023 Apixaban 5 MG Oral Tablet (Eliquis)Indicatio ns:New onset atrial flutter (HCC) Take 1 Tablet by mouth in the morning and 1 Tablet before bedtime. 180 Tablet 3 08/24/2023 Active Apixaban 5 MG Oral Tablet (Eliquis)Indicatio ns:New onset atrial flutter (HCC) Take 1 Tablet by mouth in the morning and 1 Tablet before bedtime. 10 Tablet 0 08/24/2023 Active documented as of this encounter (statuses as of 08/28/2023) Active Problems Problem Noted Date Diagnosed Date [...] as of this encounter (statuses as of 08/28/2023) Resolved Problems Problem Noted Date Diagnosed Date [...] disorder 02/15/2012 09/03/2017 Genetic Sleep Disorder Resea [facility] Other*[id number] 06/26/2011 12/08/2015 EXAMINATION OF PARTICIPANT I N CLINICAL TRIAL-Genomics 06/04/2009 08/20/2009 Overview: Renamed Per Clinical Trials Billing Project. Study Titile: Genomic Markers for Patients with Cardiovascular Disease Project #[id number] PI: Radha Yepez MD Please call [phone] with study related questions GENOMICS CARDIO RESEARCH OTHER*[id number] 06/04/2009 06/13/2016 Overview: Renamed Per Clinical Trials Billing Project. Study Titile: Genomic Markers for Patients with Cardiovascular Disease Project #[id number] PI: Radha Yepez MD Please call [phone] with study related questions Benign neoplasm of [...] as of this encounter (statuses as of 08/28/2023) Immunizations Name Administration Dates Next Due COVID-19 mRNA, LNP-s, No Pre serve, 2-Dose Series (Moderna) 07/02/2020,06/03/2020 COVID-19, mRNA, LNP-s, PF, B ooster, 100mcg/0.5mg (Moderna) 10/06/2021,03/02/2021 Covid-19, Mrna, Lnp-s, Pf, B ivalent, 30 Mcg, IM, 12 yrs and above ([employer] [place]) 02/15/2022 H1N1 2009 Influenza, IM 05/10/2009 Pneumococcal [...] Past Smokeless Tobacco: Never Comments:no smoking since 03 Alcohol Use Standard Drinks/Week Comments No 0 [...] encounter Miscellaneous Notes * Telephone Encounter - Marcia Collins CRNP - 08/28/2023 10:45 AM EDT Noted. Thank you * Telephone Encounter - Praneeth Gabriel OSA - 08/28/2023 9:05 AM EDT I called patient LM that the CT scan has been scheduled and also sent a MyG message as well, the CTScan is scheduled on: Sunday Appt at 8:00 AM (15 min) * Telephone Encounter - Marin Velásquez LPN - 08/27/2023 4:18 PM EDT Patient returned call and was advised of Marcia's message. Patient verbalized understanding. CT ordered. Scheduling please assist or forward to help patient schedule. * Telephone Encounter - Maxx Edwards RN - 08/27/2023 3:05 PM EDT Called and left message on home phone to call the clinic in regards to the message from Marcia Collins and his need for a CT scan. * Telephone Encounter - Marcia Collins CRNP - 08/27/2023 8:50 AM EDT Patient's blood work has resulted and his D-dimer is elevated. He was diagnosed with new onset atrial flutter in the office on Sunday and started on Eliquis immediately. Given his symptoms and new finding. I would like the patient to have a CT chest. I will place the order now. Can you please call the patient and advise that I want him to have the scan done MIRANDA to exclude any possibility of a blood clot in the lungs. Orders placed. Most recent Cr. 1.1. Drawn on 08/24/23 documented in this encounter Plan of Treatment Upcoming Encounters Date Type Department Care Team (Late st Contact Info) Description 08/29/2023 10:30 AM EDT Imaging [facility] 2nd Floor Cardiology, [place] [address] [facility] [place] [address] 08/29/2023 2:30 PM EDT [facility] [address] [facility] [place] [address] 08/31/2023 8:00 AM EDT Imaging Radiology [facility] 1st [facility] [address] [facility] [place] [address] 09/13/2023 3:40 PM EDT Office Visit Neurology [facility] [address] [place] [address] Shantel Zhou MD [address] [place] [address] 09/28/2023 12:45 PM EDT Office Visit Dermatology [facility] [address] [place] [address] Mitchell Mack MD [address] [facility] [place] [address] 10/02/2023 10:30 AM EDT Office Visit Cardiology, [facility] [address] [facility] [place] [address] Marcia Collins CRNP [address] [facility] [place] [address] 11/05/2023 1:00 PM EDT Office Visit [address] [phone] Kaz Robledo MD [address] [place] [address] 12/11/2023 8:00 AM EDT Imaging Vascular Lab, [facility] 2nd [facility] [address] [place] [address] 12/11/2023 9:00 AM EDT Imaging Vascular Lab, [address] [place] [address] 12/19/2023 8:30 AM EDT Office Visit Vascular Surgery, [facility] [address] [place] [address] Rancho Soler MD [address] [place] [address] 02/21/2024 1:30 PM EDT Office Visit Neurology [facility] [address] [place] [address] Shantel Mc PA-C [address] [place] [address] 02/28/2024 8:40 AM EDT Office Visit Neurology [facility] [address] [place] [address] Darron Calvillo MD [address], [place] [id number] 03/18/2024 3:00 PM EST Office Visit Cardiology, [facility] [address] [place] [address] Marcia Collins CRNP [address] [facility] [place] [address] Scheduled Orders Name Type Priority Associated Diagnoses Orde r Schedule CT PULMONARY EMBOLUS W CONTRAST Medical Imaging STAT New onset atrial flutter (HCC) Elevated d-dimer Chest pain, unspecified type Expected: 08/27/2023, Expires: 09/25/2024 Scheduled Procedures Name Priority Associated Diagnoses Date/Ti me COLONOSCOPY FLEXIBLE PROXIMAL DIAGNOSTIC Recall History of colon polyps Health Maintenance Due Date Last Done Comments Alpha-1 Antitrypsin 1963 COLONOSCOPY-ANNUAL AGES 18-100 03/20/2020 03/20/2019, 03/20/2019, 10/15/2017, Additional history exists COVID-19 Vaccine ( season) 2023 02/15/2022, 10/06/2021, 03/02/2021, Additional history exists *COPD SEVERITY VERIFIED BY PFT 05/28/2023 HbA1c 07/16/2024 07/17/2023, 0 05/2022, 08/23/2021, Additional history exists GFR 08/23/2024 08/24/2023, 07/05, 09/19/2022, Additional history exists O2 ASSESSMENT COMPLETED IN PAST YEAR FOR COPD 08/23/2024 08/24/2023 Albumin/Creatinine Ratio 07/17/2026 07/18/2023, 09/05 DTaP,Tdap,and Td Vaccines (3 - Td or Tdap) 08/26/2028 08/26/2018, 01/27/2008 Pneumococcal Vaccine: 65+ Years Completed 02/02/2015, 01/24/2010, 03/02/2001 Zoster Vaccines Completed 06/07/2019, 12/2018, 02/03/2009 Influenza Vaccine (FLU shot) Completed , 01/10/2022, 02/02/2021, Additional history exists GARDASIL-HPV IMMUNIZATION [...] as of this encounter Visit Diagnoses Diagnosis New onset atrial flutter (HCC)- Primary Atrial flutter Elevated d-dimer Abnormal coagulation profile Chest pain, unspecified type documented in this encounter Care Teams Clinical Audiologist Relationship Specialty Start Date End Date Kaz Robledo MD [address] [place] [address] PCP - General Family Medicine 03/05/17 documented as of this encounter
--- OUTSIDE RECORDS SUMMARY | 2023-10-19 07:20 | External Medical Summary | Summary of Care ---
Author Name Unknown Organization [facility] Address [address] [place] [address] Phone [phone] Care Team Providers Care Implementation Lead Name Role Phone Kaz Robledo MD Primary Care Provider [phone]- [phone] Reason for Visit * Reason Comments Hyperlipidemia Dosage Adjustment Via Phone (anticoag Cl inic) Encounter Details Date Type Department Care Team (Late st Contact Info) Description 09/04/2023 10:20 AM EDT Telemedicine Cardiology [facility] [place] [address] [place] [address] [place] [address], Pharmacist Cardiology [facility] [address] [place] [address] Hyperlipidemia with target LDL less than 70* Allergies Active Allergy Reactions Criticality Noted Date Comments Atorvastatin Muscle pain 12/11/2016 Bee Stings 02/21/1999 Hives,intense itching,edema documented as of this encounter (statuses as of 09/04/2023) Medications Medication Sig Dispensed Refills Start Date End Date Status LOW-DOSE ASPIRIN 81 MG PO TABS one daily 0 Active DAILY MULTIVITAMIN PO TABS 1 tablet daily 0 Active CALCIUM 500 MG PO TABS Take by mouth daily. 60 Tab 0 0 Active NITROGLYCERIN 0.4 MG SL SUBLIndications:S table angina (HCC) 1 TAB EVERY 5 MIN NEEDED, UP TO 3 PER EPISODE 25 Tab 5 4 Active Additional Information Patient taking differently:Sublingual,Indications: reviewed exp date was exp 12/26 now pitched and new bottle will exp 04/27, Reported on 07/03/2022 docusate sodium (COLACE) 100 MG CapsuleIndication s:take one by mouth every other day as [...] Tablet by mouth every other day. 0 8 Active Ketoconazole 2 % External CreamIndications: Seborrheic dermatitis Apply to face 2-3 x's per week. 30 g 4 0 Active Diclofenac Sodium 1 % External GelIndications:Ac landon pain of right shoulder Apply 4 gm topically to right shoulder 4 times a day 200 g 1 1 Active Polyethylene Glycol 3350 17 GM/SCOOP Oral Powder (MiraLax)Indicati ons:Chronic constipation Take 17 g by mouth daily. Dissolve one heaping tablespoon in 8 ounces of water or juice. If after one week, bowels are not moving well, take twice a day 850 g 1 1 Active Triamcinolone Acetonide 0.1 % External Cream (Aristocort)Indic ations:Hand erythema Apply topically to affected area 2 times a day. To affected area. 45 g 0 3 Active Cilostazol 100 MG Oral Tablet (Pletal) take 1 tablet by mouth twice a day ON AN EMPTY STOMACH 180 Tablet 3 3 Active Terazosin HCl 1 MG Oral Capsule (Hytrin)Indicatio ns:HTN, goal below 140/90 Take 1 Capsule by mouth at bedtime. 90 Capsule 3 3 Active Lisinopril 40 MG Oral Tablet Take 1 Tablet by mouth in the morning 90 Tablet 3 3 Active Citalopram Hydrobromide 20 MG Oral Tablet (CeleXA)Indicatio ns:Major depressive disorder, recurrent episode, mild (HCC) Take 1 Tablet by mouth in the morning. 90 Tablet 3 3 Active Metoprolol Succinate ER 25 MG Oral Tablet Extended Release 24 Hour (toPROL XL) Take 1 Tablet by mouth at bedtime. 90 Tablet 3 3 Active Fluocinonide 0.05 % External SolutionIndicatio ns:Seborrheic dermatitis Apply to scalp daily Sunday thru as needed for redness and flaking 60 mL 2 4 Active Ketoconazole 2 % External Shampoo (Nizoral)Indicati ons:Seborrheic dermatitis Apply to scalp 2-3 x's per week. 360 mL 5 4 Active Isosorbide Mononitrate ER 30 MG Oral Tablet Extended Release 24 Hour (Imdur)Indication s:Coronary artery disease involving [place] coronary artery of [place] heart without angina pectoris,Chronic coronary artery disease TAKE ONE TABLET BY MOUTH EVERY DAY IN THE MORNING 90 Tablet 3 4 05/29/19 25 Active clonazePAM 0.5 MG Oral Tablet (KlonoPIN)Indicat ions:Sleep disorder,Adjustme nt disorder with mixed anxiety and depressed mood TAKE 1 TO 2 TABLETS BY MOUTH ONCE DAILY AT BEDTIME FOR SLEEP 60 Tablet 0 4 Active amLODIPine Besylate 10 MG Oral Tablet (Norvasc) TAKE ONE TABLET BY MOUTH EVERY MORNING 90 Tablet 3 4 07/20/19 25 Active Gabapentin 100 MG Oral Capsule (Neurontin) 1 tab at bedtime x 7 days then 1 tab twice daily x 7 days then 1 tab three times daily 90 Capsule 2 4 Active Additional Information Patient not taking.Reported on 08/24/2023 Apixaban 5 MG Oral Tablet (Eliquis)Indicati ons:New onset atrial flutter (HCC) Take 1 Tablet by mouth in the morning and 1 Tablet before bedtime. 180 Tablet 3 4 Active Apixaban 5 MG Oral Tablet (Eliquis)Indicati ons:New onset atrial flutter (HCC) Take 1 Tablet by mouth in the morning and 1 Tablet before bedtime. 10 Tablet 0 4 Active Repatha SureClick 140 MG/ML Subcutaneous Solution Auto-injector (evolocumab) Inject 140 mg under the skin every 14 days. Remove from refrigerator 30 minutes prior to injection. 2 Each 3 4 Active Repatha Pushtronex System 420 MG/3.5ML Subcutaneous Solution Cartridge (Evolocumab with Infusor)Indicatio ns:Dyslipidemia, goal LDL below 100,Chronic coronary artery disease,PAD (peripheral artery disease) ([facility]) INJECT 420 MG UNDER THE SKIN EVERY MONTH -- ADMINISTER OVER 5 MINUTES -- REMOVE FROM REFRIGERATOR 45 MINUTES PRIOR TO INJECTION 10.5 mL 3 4 09/04/19 24 Discontinued documented as of this encounter (statuses as of 09/04/2023) Active Problems Problem Noted Date Diagnosed Date [...] as of this encounter (statuses as of 09/04/2023) Resolved Problems Problem Noted Date Diagnosed Date [...] disorder 02/15/2012 09/03/2017 Genetic Sleep Disorder Resea [facility] Other*[id number] 06/26/2011 12/08/2015 EXAMINATION OF PARTICIPANT I N CLINICAL TRIAL-Genomics 06/04/2009 08/20/2009 Overview: Renamed Per Clinical Trials Billing Project. Study Titile: Genomic Markers for Patients with Cardiovascular Disease Project #[id number] PI: Radha Yepez MD Please call [phone] with study related questions GENOMICS CARDIO RESEARCH OTHER*[id number] 06/04/2009 06/13/2016 Overview: Renamed Per Clinical Trials Billing Project. Study Titile: Genomic Markers for Patients with Cardiovascular Disease Project #[id number] PI: Radha Yepez MD Please call [phone] with study related questions Benign neoplasm of [...] as of this encounter (statuses as of 09/04/2023) Immunizations Name Administration Dates Next Due COVID-19 [...] as of this encounter Progress Notes * Melinda Hill, [facility] - 09/04/2023 9:03 AM EDT PCSK-9 Inhibitor Follow Up After connecting to the patient via telephone, the patient was identified by name and date of . Patient was then informed that this was a telephone call only visit. The patient agreed to participate Visit Disposition: Status check/routine follow up Duration: 5 minutes Primary Meringuer/Ordering Provider: Marcia Collins HPI: Landen Camacho is a 78 year old year old male. History: Pt tolerating repatha well. Need to change from Repatha 420 mg to 140 mg every 2 weeks dueto the 420 being d/c by [employer]. Target LDL: <70 Clinical ASCVD/Risk Score: The ASCVD Risk score (Serge DWYER, et al., 2019) failed to calculate for the following reasons: The patient has a prior [place] or stroke diagnosis Patient Active Problem List Diagnosis Code Carotid stenosis, non-symptomatic I65.29 Hearing loss H91.90 DYSLIPIDEMIA, GOAL LDL BELOW 100 E78.5 Chronic coronary artery disease I25.10 History of tobacco use Z87.891 REM behavioral disorder G47.52 Periodic limb movement disorder G47.61 HTN, goal below 140/90 I10 Obesity, Class I, BMI 30.0-34.9 (see actual BMI) E66.9 Vitamin D deficiency E55.9 Generalized osteoarthritis M15.9 Controlled substance agreement signed Z79.899 History of nonmelanoma skin cancer Z85.828 Personal history of subdural hemorrhage Z86.79 History of adenomatous polyp of colon Z86.010 PVD (peripheral vascular disease) ([facility]) I73.9 Major depressive disorder with single episode, in full remission ([facility]) F32.5 Bilateral carotid artery occlusion I65.23 Prediabetes R73.03 Other atherosclerosis of [place] arteries of extremities, bilateral legs ([facility]) I70.293 Anxiety F41.9 Chronic obstructive pulmonary disease (HCC) J44.9 Major depressive disorder, recurrent episode, mild ([facility]) F33.0 Adjustment disorder with mixed anxiety and depressed mood F43.23 Problems related to living alone Z60.2 Review of patient's allergies indicates: Allergen Reactions Atorvastatin Muscle pain Bee Stings Hives,intense itching,edema LABS: Lab Results Component Value Date/Time LDL CHOLESTEROL (CALCULATED) - [facility] (H) 07/05/2022 07:57 AM LDL CHOLESTEROL (CALCULATED) - [facility] 02/18/2021 09:33 AM LDL CHOLESTEROL (CALCULATED) - [employer] 35 03/13/2020 10:11 AM LDL CHOLESTEROL (CALCULATED) - [facility] 11/12/2019 08:36 AM LDL CHOLESTEROL (CALCULATED) - [facility] 08/27/2018 07:32 AM LDL CHOLESTEROL (DIRECT MEASURE) - [facility] 44 02/16/2023 07:30 AM LDL CHOLESTEROL (DIRECT MEASURE) - [facility] 141 (H) 07/05/2022 07:57 AM LDL CHOLESTEROL (DIRECT MEASURE) - [facility] 47 02/20/2022 08:34 AM LDL CHOLESTEROL (DIRECT MEASURE) - [facility] NOT APPLICABLE 03/13/2020 10:11 AM LDL CHOLESTEROL (DIRECT MEASURE) - [facility] NOT APPLICABLE 11/12/2019 08:36 AM LDL CHOLESTEROL (DIRECT MEASURE) - [facility] NOT APPLICABLE 08/27/2018 07:32 AM LDL CHOLESTEROL (DIRECT MEASURE) - [facility] 92 10/13/2010 09:05 AM LDL CHOLESTEROL (DIRECT MEASURE) - [facility] 112 04/26/2010 08:59 AM LDL CHOLESTEROL (DIRECT MEASURE) - [facility] 91 12/27/2009 07:59 AM ASSESSMENT There are no diagnoses linked to this encounter. Patient is on the following medication(s): Repatha 420 mg monthly PLAN OF ACTION Medication Regimen: CHANGE Repatha 140 mg every 2 weeks Labs Needed: no Follow-Up Appointment(s): Pharmacist: no appt needed Physician: Marcia 10/02/23 [place] RPh [facility] Clinical Pharmacist Cardiology Department 09/04/2023,9:03 AM\ documented in this encounter Plan of Treatment Upcoming Encounters Date Type Department Care Team (Late st Contact Info) Description 09/13/2023 3:40 PM EDT Office Visit Neurology [facility] [address] [place] [address] Shantel Zhou MD [address] [place] [address] 09/28/2023 12:45 PM EDT Office Visit Dermatology [facility] [place] [address] [place] [address] Mitchell Mack MD [address] [place] [address] 10/02/2023 10:30 AM EDT Office Visit Cardiology, [facility] [address] [facility] [place] [address] Marcia Collins CRNP [address] [place] [address] 11/05/2023 1:00 PM EDT Office Visit [facility] [address] [place] [phone] Kaz Robledo MD [address] [place] [address] 12/11/2023 8:00 AM EDT Imaging Vascular Lab, [address] [facility] [address] 12/11/2023 9:00 AM EDT Imaging Vascular Lab, [address] [facility] [place] [address] 12/19/2023 8:30 AM EDT Office Visit Vascular Surgery, [facility] [address] [place] [address] Rancho Soler MD [address] [place] [address] 02/21/2024 1:30 PM EDT Office Visit Neurology [facility] [address] [place] [address] Shantel Mc PA-C [address] [place], [place] [address] 02/28/2024 8:40 AM EDT Office Visit Neurology [facility] [address] [place] [address] Darron Calvillo MD [address] [place] [address] 03/18/2024 3:00 PM EST Office Visit Cardiology, [facility] [address] [place] [address] Marcia Collins CRNP [address] [place] [address] Scheduled Procedures Name Priority Associated Diagnoses Date/Ti [...] as of this encounter Visit Diagnoses Diagnosis Hyperlipidemia with target LDL less than 70- Primary Other and unspecified hyperlipidemia documented in this encounter Care Teams Implementation Lead Relationship Specialty Start Date End Date Kaz Robledo MD [address] [place] [address] PCP - General Family Medicine 03/05/17 documented as of this encounter
--- OUTSIDE RECORDS SUMMARY | 2023-10-19 07:20 | External Medical Summary | Summary of Care ---
Author Name Unknown Organization [facility] Address [address] [place] [address] Phone [phone] Care Team Providers Care Dobby Loom Chain Pegger Name Role Phone Kaz Robledo MD Primary Care Provider [phone]- [phone] Reason for Referral * Precert (Within 24 hrs (call dept; emergent)) - Pending Review Specialty Diagnoses / Procedures Referred By Yuan peterson Referred To Contact Radiology Diagnoses New onset atrial flutter (HCC) Elevated d-dimer Chest pain, unspecified type Procedures CT PULMONARY EMBOLUS W CONTRAST Marcia Collins CRNP [address] [place] [address] Referral ID Status Reason Start Date Expiration Date V isits Requested Visits Authorized [id number] Pending Review 08/27/2023 999 999 Reason for Visit * Reason Onset Date Comments Outpatient Testing 08/27/2023 Encounter Details Date Type Department Care Team (Late st Contact Info) Description 08/27/2023 Telephone Cardiology, [facility] [address] [place] [address] Marcia Collins CRNP [address] [place] [address] Outpatient Testing Allergies Active Allergy Reactions Criticality [...] 24 Hour (Imdur)Indications :Coronary artery disease involving [place] coronary artery of [place] heart without angina pectoris,Chronic coronary artery disease [...] disorder 02/15/2012 09/03/2017 Genetic Sleep Disorder Resea [facility] Other*[id number] 06/26/2011 12/08/2015 EXAMINATION OF PARTICIPANT I N CLINICAL TRIAL-Genomics 06/04/2009 08/20/2009 Overview: Renamed Per Clinical Trials Billing Project. Study Titile: Genomic Markers for Patients with Cardiovascular Disease Project #[id number] PI: Radha Yepez MD Please call [phone] with study related questions GENOMICS CARDIO RESEARCH OTHER*[id number] 06/04/2009 06/13/2016 Overview: Renamed Per Clinical Trials Billing Project. Study Titile: Genomic Markers for Patients with Cardiovascular Disease Project #[id number] PI: Radha Yepez MD Please call [phone] with study related questions Benign neoplasm of [...] 30 Mcg, IM, 12 yrs and above (SAW Instrument) 02/15/2022 H1N1 2009 Influenza, IM 05/10/2009 Pneumococcal [...] encounter Miscellaneous Notes * Telephone Encounter - Praneeth Gabriel OSA - 08/28/2023 1:41 PM EDT Patient called back to verify the date and time for the CT. He is aware of it. * Telephone Encounter - Praneeth Gabriel OSA - 08/28/2023 12:37 PM EDT Called patient again, to verify, LM * Telephone Encounter - Marcia Collins CRNP [...] Info) Description 08/29/2023 10:30 AM EDT Imaging [facility] 2nd Floor Cardiology, [place] [address] [facility] [place] [address] 08/29/2023 2:30 PM EDT Imaging [facility] 2nd Floor Cardiology, [place] [address] [place] [address] 08/31/2023 8:00 AM EDT Imaging Radiology [facility] 1st [facility], [place] [address] [facility] [place] [address] 09/13/2023 3:40 PM EDT Office Visit Neurology [facility] [address] [facility] [place] [address] Shantel Zhou MD [address] [facility] [place] [address] 09/28/2023 12:45 PM EDT Office Visit Dermatology [facility] [address] [facility] [place] [address] Mitchell Mack MD [address] [facility] [place] [address] 10/02/2023 10:30 AM EDT Office Visit Cardiology, [facility] 132 [facility] [place] [address] Marcia Collins CRNP 132 [facility] [place] [address] 11/05/2023 1:00 PM EDT Office Visit [facility] [address] [place] [address] Kaz Robledo MD [address] [place] [address] 12/11/2023 8:00 AM EDT Imaging Vascular Lab, [facility] 2nd [facility] [address] [facility] [place] [address] 12/11/2023 9:00 AM EDT Imaging Vascular Lab, [address] [facility] [place] [address] 12/19/2023 8:30 AM EDT Office Visit Vascular Surgery, [facility] [address] [facility] [place] [address] Rancho Soler MD [address] [place] [address] 02/21/2024 1:30 PM EDT Office Visit Neurology [facility] [address] [place] [address] Shantel Mc PA-C [address] [place] [address] 02/28/2024 8:40 AM EDT Office Visit Neurology [facility] [address] [place] [address] Darron Calvillo MD [address] [place] [address] 03/18/2024 3:00 PM EST Office Visit Cardiology, [facility] [address] [place] [address] Marcia Collins CRNP [address] [place] [address] Scheduled Orders Name Type Priority Associated Diagnoses [...] 03/20/2019, 10/15/2017, Additional history exists COVID-19 Vaccine (2022- [...] 02/02/2015, 01/24/2010, 03/02/2001 Zoster Vaccines Completed 06/07/2019, 100 12/2018, 02/03/2009 Influenza Vaccine (FLU shot) Completed [...] type documented in this encounter Care Teams Dobby Loom Chain Pegger Relationship Specialty Start Date End Date Kaz Robledo MD [address] [place] [address] PCP - General Family Medicine 03/05/17 documented as of this encounter
--- OUTSIDE RECORDS SUMMARY | 2023-10-19 07:20 | External Medical Summary | Summary of Care ---
Author Name Unknown Organization [facility] Address [address] [facility] [place] [address] Phone [phone] Care Team Providers Care Building Stonecutter Name Role Phone Kaz Robledo MD Primary Care Provider [phone]- [phone] Reason for Referral * Precert (Within 24 hrs (call dept; emergent)) - Pending Review Specialty Diagnoses / Procedures Referred By Yuan peterson Referred To Contact Radiology Diagnoses New onset atrial flutter (HCC) Elevated d-dimer Chest pain, unspecified type Procedures CT PULMONARY EMBOLUS W CONTRAST Marcia Collins CRNP [address] [place] [address] Referral ID Status Reason Start Date Expiration Date V isits Requested Visits Authorized [id number] Pending Review 08/27/2023 999 999 Reason for Visit * Reason Onset Date Comments Outpatient Testing 08/27/2023 Encounter Details Date Type Department Care Team (Late st Contact Info) Description 08/27/2023 Telephone Cardiology, [facility] [address] [place] [address] Marcia Collins CRNP [address] [place] [address] Outpatient Testing Allergies Active Allergy Reactions Criticality [...] 24 Hour (Imdur)Indications :Coronary artery disease involving qagan [place] coronary artery of qagan [place] heart without angina pectoris,Chronic coronary artery disease [...] disorder 02/15/2012 09/03/2017 Genetic Sleep Disorder Resea [facility] Other*[id number] 06/26/2011 12/08/2015 EXAMINATION OF PARTICIPANT I N CLINICAL TRIAL-Genomics 06/04/2009 08/20/2009 Overview: Renamed Per Clinical Trials Billing Project. Study Titile: Genomic Markers for Patients with Cardiovascular Disease Project #[id number] PI: Radha Yepez MD Please call [phone] with study related questions GENOMICS CARDIO RESEARCH OTHER*[id number] 06/04/2009 06/13/2016 Overview: Renamed Per Clinical Trials Billing Project. Study Titile: Genomic Markers for Patients with Cardiovascular Disease Project #[id number] PI: Radha Yepez MD Please call [phone] with study related questions Benign neoplasm of [...] 30 Mcg, IM, 12 yrs and above ([employer]Cut) 02/15/2022 H1N1 2009 Influenza, IM 05/10/2009 Pneumococcal [...] Info) Description 08/29/2023 10:30 AM EDT Imaging [facility] 2nd Floor Cardiology, [place] [address] [place] [address] 08/29/2023 2:30 PM EDT Imaging [facility] 2nd Floor Cardiology, [place] [address] [facility] [place] [address] 08/31/2023 8:00 AM EDT Imaging Radiology [facility], [place] [address] [facility] [place] [address] 09/13/2023 3:40 PM EDT Office Visit Neurology [facility] 200 [facility] [place] [address] Shantel Zhou MD 200 [facility] [place] [address] 09/28/2023 12:45 PM EDT Office Visit Dermatology [facility] [address] [facility] [place] [address] Mitchell Mack MD [address] [facility] [place] [address] 10/02/2023 10:30 AM EDT Office Visit Cardiology, [facility] [address] [facility] [place] [address] Marcia Collins CRNP [address] [place] [address] 11/05/2023 1:00 PM EDT Office Visit [facility] [address] [place] [id number] Kaz Robledo MD [address] [place] [address] 12/11/2023 8:00 AM EDT Imaging Vascular Lab, [facility] 2nd [facility] 132 [facility] [place] [address] 12/11/2023 9:00 AM EDT Imaging Vascular Lab, [address] [facility] [place] [address] 12/19/2023 8:30 AM EDT Office Visit Vascular Surgery, [facility] [address] [facility] [place] [address] Rancho Soler MD [address] [place] [address] 02/21/2024 1:30 PM EDT Office Visit Neurology [facility] [address] [place] [address] Shantel Mc PA-C [address] [place] [address] 02/28/2024 8:40 AM EDT Office Visit Neurology [facility] [address] [place] [address] Darron Calvillo MD [address] [place] [address] 03/18/2024 3:00 PM EST Office Visit Cardiology, [facility] [address] [facility] [address] Marcia Collins CRNP [address] [facility] [place] [address] Scheduled Orders Name Type Priority Associated Diagnoses [...] type documented in this encounter Care Teams Building Stonecutter Relationship Specialty Start Date End Date Kaz Robledo MD [address] [place] [address] PCP - General Family Medicine 03/05/17 documented as of this encounter
--- OUTSIDE RECORDS SUMMARY | 2023-10-19 07:20 | External Medical Summary | Summary of Care ---
Author Name Unknown Organization [facility] Address [address] [place] [address] Phone [phone] Care Team Providers Care Cra Name Role Phone Kaz Robledo MD Primary Care Provider [phone]- [phone] Reason for Visit * Reason Comments Return Neuro Tremor Encounter Details Date Type Department Care Team (Late st Contact Info) Description 09/13/2023 3:40 PM EDT Office Visit Neurology [facility] [address] [place] [address] Shantel Zhou MD [address] [place] [address] Parkinson's disease without dyskinesia or fluctuating manifestations ([facility])* Allergies Active Allergy Reactions Criticality Noted Date Comments Atorvastatin Muscle pain 12/11/2016 Bee Stings 02/21/1999 Hives,intense itching,edema documented as of this encounter (statuses as of 09/13/2023) Medications Medication Sig Dispensed Refills Start Date [...] 0 03/24/2018 Active Ketoconazole 2 % External CreamIndications:Amol [...] 24 Hour (Imdur)Indications:C oronary artery disease involving [place] coronary artery of [place] heart without angina pectoris,Chronic coronary artery disease TAKE ONE TABLET BY MOUTH EVERY DAY IN THE MORNING 90 Tablet 3 05/30/2023 5 Active clonazePAM 0.5 MG Oral Tablet (KlonoPIN)Indication [...] before bedtime. 10 Tablet 0 08/24/2023 Active Repatha SureClick 140 MG/ML Subcutaneous Solution Auto-injector (evolocumab) Inject 140 mg (1 pen) under the skin every 14 days. Remove from refrigerator 30 minutes prior to injection. 2 mL 3 09/04/2023 Active Carbidopa-Levodopa 25-100 MG Oral Tablet (Sinemet)Indications :Parkinson's disease without dyskinesia or fluctuating manifestations (HCC) take 1 tablet twice a day with meals for 5 days then 1 tablet three times a day with meals 270 Tablet 1 09/13/2023 Active documented as of this encounter (statuses as of 09/13/2023) Active Problems Problem Noted Date Diagnosed Date [...] as of this encounter (statuses as of 09/13/2023) Resolved Problems Problem Noted Date Diagnosed Date [...] disorder 02/15/2012 09/03/2017 Genetic Sleep Disorder [facility] Other*[id number] 06/26/2011 12/08/2015 EXAMINATION OF PARTICIPANT I N CLINICAL TRIAL-Genomics 06/04/2009 08/20/2009 Overview: Renamed Per Clinical Trials Billing Project. Study Titile: Genomic Markers for Patients with Cardiovascular Disease Project #[id number] PI: Radha Yepez MD Please call [phone] with study related questions GENOMICS CARDIO RESEARCH OTHER*[id number] 06/04/2009 06/13/2016 Overview: Renamed Per Clinical Trials Billing Project. Study Titile: Genomic Markers for Patients with Cardiovascular Disease Project #[id number] PI: Radha Yepez MD Please call [phone] with study related questions Benign neoplasm of [...] as of this encounter (statuses as of 09/13/2023) Immunizations Name Administration Dates Next Due COVID-19 mRNA, LNP-s, No Pre serve, 2-Dose Series (Moderna) 07/02/2020,06/03/2020 COVID-19, mRNA, LNP-s, PF, B ooster, 100mcg/0.5mg (Moderna) 10/06/2021,03/02/2021 Covid-19, Mrna, Lnp-s, Pf, B ivalent, 30 Mcg, IM, 12 yrs and above ([email or web address]) 02/15/2022 H1N1 2009 Influenza, IM 05/10/2009 Pneumococcal [...] Sign Reading Time Taken Comments Blood Pressure 136/76 09/13/2023 3:21 PM EDT Pulse 66 09/13/2023 3:21 PM EDT Temperature 36.4 C (97.5 F) 09/13/2023 3:21 PM ED T Respiratory Rate 16 09/13/2023 3:21 PM EDT Oxygen Saturation 98% 09/13/2023 3:21 PM EDT Inhaled Oxygen Concentration - - Weight 94.4 kg (208 lb 3.2 oz) 09/13/2023 3:21 P M EDT Height - - Body Mass Index 29.87 07/16/2023 2:20 PM EDT documented in this encounter Progress Notes * Shantel Zhou MD - 09/13/2023 4:00 PM EDT Images from the original note were not included. CLINIC NOTES Neurology Asael Mar[facility] [place] [address] [place] [address] Landen Camacho : 1945 NEUROLOGY OUTPATIENT NOTE 09/13/2023 HISTORY: The patient is referred for consultation by Dr. Robledo, who will be receiving a copy of this note The patient is seen in follow-up he is being Alexandro he has a resting tremor intention tremor. Had adverse effects with use of clonazepam gabapentin. He is very bothered by resting tremor he notes some difficulty with gait while turning. Denies any hallucinations no dream enacting behavior. He does take clonazepam for sleep but again denies dream enacting behavior. Problem list indicates a REM behavior disorder PACS Images - Remote and MAC Users Show Images PACS Images Show images for NM BRAIN SPECT WITH DATSCAN Results NM BRAIN SPECT WITH DATSCAN [07528.4] (Spec. #[id number]) (Order [id number]) Exam End Date Exam End Time 08/29/2023 3:19 PM NM BRAIN SPECT WITH DATSCAN Order: [id number] Status: Final result Visible to patient: Yes (seen) Next appt: 09/28/2023 at 12:45 PM in *Derm* (Mitchell Mack MD) Dx: Anxiety; Tremor 0 Result Notes Details Reading Physician Reading Date Result Priority Marin Suarez, DO [phone] 08/29/2023 Tee Hickey DO [phone] 08/29/2023 Narrative & Impression EXAM NM BRAIN SPECT WITH DATSCAN - 08/29/2023 3:19 pm HISTORY r/o parkinson disease- mixed essential and resting tremor TECHNIQUE One hour after preparation with oral potassium iodide solution, 5.0 mCi of I-123 ioflupane was administered intravenously. SPECT imaging of the head was performed. COMPARISON None FINDINGS Decreased radiotracer distribution in the posterior striata, worse on the right. IMPRESSION IMPRESSION Asymmetric dopamine transporter distribution, truncated on the right. Findings suggest Parkinsoniansyndrome, such as Parkinson's disease, multiple system atrophy, or progressive supranuclear palsy. Patient Active Problem List Diagnosis Code Carotid [...] of colon Z86.010 PVD (peripheral vascular disease) ([facility]) I73.9 Major depressive disorder with single episode, in full remission ([facility]) F32.5 Bilateral carotid artery occlusion I65.23 Prediabetes R73.03 Other atherosclerosis of [place] arteries of extremities, bilateral legs ([facility]) I70.293 Anxiety F41.9 Chronic obstructive pulmonary disease ([facility]) J44.9 Major depressive disorder, recurrent episode, mild ([facility]) F33.0 Adjustment disorder with mixed anxiety and depressed mood F43.23 Problems related to living alone Z60.2 Past Surgical History: Procedure Laterality Date CATARACT SURGERY,COMPLEX 03/06/12 CATARACT SURGERY,COMPLEX 04/16/12 CATHETERIZE LEFT HEART THRU SKIN 06/04/09 LEFT HEART CATH, PERCUTANEOUS performed by MARTY ROWELL at [facility] COLONOSCOPY 01/07 tubular adenoma -repeat [id number] COLONOSCOPY W/ BIOPSY (RECTUM) 05/11/08 repeat in 3 yrs/adenomatous COLONOSCOPY, DIAGNOSTIC (RECTUM) 09/13/2015 adenomatous polyp, diverticulosis, repeat 1 yr/COLONOSCOPY FLEXIBLE PROXIMAL DIAGNOSTIC performed by Ariel Johnson MD at [facility] COLONOSCOPY, DIAGNOSTIC (RECTUM) 10/15/2017 adenomatous & hyperplastic polyps, diverticulosis, fair prep, repeat 1 yr/COLONOSCOPY FLEXIBLE PROXIMAL DIAGNOSTIC performed by Gema Rodas MD at [facility] COLONOSCOPY, DIAGNOSTIC (RECTUM) 03/20/2019 adenomatous polyp, diverticulosis, fair prep, repeat 1 yr/COLONOSCOPY FLEXIBLE PROXIMAL DIAGNOSTIC performed by Gema Rodas MD at [facility] KNEE ARTHROSCOPY/MENISCECTOMY left OTHER 02/06 perirectal abscess REMOVAL OF TONSILS, UNDER AGE 12 REPAIR RECURRENT INGUINAL HERNIA mesh right RMV MALG LSN FACE/EAR <=.5 CM 07/05 basal cell right sub ear area Social History Socioeconomic History Marital status: Spouse name: Not on file Number of children: 2 Years of education: Not on file Highest education level: Not on file Occupational History Comment: unemployed Tobacco Use Smoking status: Former Current packs/day: 0.00 Average packs/day: 0.8 packs/day for 30.0 years (22.5 ttl pk-yrs) Types: Cigarettes Start date: 05/07/1972 Quit date: 05/07/2002 Years since quittin.3 Passive exposure: Past Smokeless tobacco: Never Tobacco comments: no smoking since 2002 Vaping Use Vaping Use: Never used Substance and Sexual Activity Alcohol use: No Drug use: No Sexual activity: Yes Partners: Female Other Topics Concern Not on file Social History Narrative Works at [employer] in [place] Social Determinants of Health Financial Resource Strain: Not on file Food Insecurity: No Food Insecurity (01/22/2023) Hunger Vital Sign Worried About Running Out of Food in the Last Year: Never true Ran Out of Food in the Last Year: Never true Transportation Needs: Not on file Physical Activity: Not on file Stress: Not on file Social Connections: Not on file Intimate Partner Violence: Not on file Housing Stability: Not on file Family History Problem Relation Age of Onset No Past Hx Mother Lived until 86 Mental Disorder Father "black lung", telecommunications facility examiner No Past Hx Son Asthma Daughter ? Other (AAA) Daughter Denies FH of AAA Current Outpatient Medications Medication Sig Dispense Refill LOW-DOSE ASPIRIN 81 MG PO TABS one daily DAILY MULTIVITAMIN PO TABS 1 tablet daily CALCIUM 500 MG PO TABS Take by mouth daily. 60 Tab 0 NITROGLYCERIN 0.4 MG SL SUBL 1 TAB EVERY 5 MIN NEEDED, UP TO 3 PER EPISODE (Patient taking differently: Place under the tongue.) 25 Tab 5 docusate sodium (COLACE) 100 MG Capsule Take 1 Capsule by mouth daily as needed. Folic Acid 400 MCG Tablet Take 1 Tablet by mouth in the morning. 30 Tab 0 Coenzyme Q10 (CO Q-10) 400 MG CAPS Take 1 Cap by mouth once. 30 Cap 0 Ketoconazole 2 % External Cream Apply to face 2-3 x's per week. 30 g 4 Diclofenac Sodium 1 % External Gel Apply 4 gm topically to right shoulder 4 times a day 200 g 1 Polyethylene Glycol 3350 17 GM/SCOOP Oral Powder [...] DAY IN THE MORNING 90 Tablet 3 clonazePAM 0.5 MG Oral Tablet (KlonoPIN) TAKE 1 TO 2 TABLETS BY MOUTH ONCE DAILY AT BEDTIME FOR SLEEP 60 Tablet 0 amLODIPine Besylate 10 MG Oral Tablet (Norvasc) TAKE ONE TABLET BY MOUTH EVERY MORNING 90 Tablet 3 Apixaban 5 MG Oral Tablet (Eliquis) Take 1 Tablet by mouth in the morning and 1 Tablet before bedtime. 180 Tablet 3 Carbidopa-Levodopa 25-100 MG Oral Tablet (Sinemet) 1 twice a day with meals for 5 d then 1 three times a day with meals 270 Tablet 1 Cholecalciferol (VITAMIN D) 1000 units Tablet Take 1 Tablet by mouth every other day. Gabapentin 100 MG Oral Capsule (Neurontin) 1 tab at bedtime x 7 days then 1 tab twice daily x 7 days then 1 tab three times daily (Patient not taking: Reported on 08/24/2023) 90 Capsule 2 Apixaban 5 MG Oral Tablet (Eliquis) Take 1 Tablet by mouth in the morning and 1 Tablet before bedtime. 10 Tablet 0 Repatha SureClick 140 MG/ML Subcutaneous Solution Auto-injector (evolocumab) Inject 140 mg (1 pen) under the skin every 14 days. Remove from refrigerator 30 minutes prior to injection. 2 mL 3 No current facility-administered medications for this visit. Review of patient's allergies indicates: Allergen Reactions Atorvastatin Muscle pain Bee Stings Hives,intense itching,edema Results for orders placed or performed in visit on 08/24/23 CBC Result Value Ref Range WBC 9.00 4.00 - 10.80 K/uL RBC 4.58 4.50 - 5.25 M/uL HGB 14.3 14.0 - 16.8 g/dL HCT 42.3 40.0 - 48.4 % MCV 92.4 82.0 - 99.5 fL MCH 31.2 27.0 - 34.0 pg MCHC 33.8 32.0 - 36.0 g/dL RDW 12.8 11.5 - 15.5 % PLT 219 140 - 400 K/uL MPV 10.3 6.6 - 11.1 fL Results for orders placed or performed in visit on 08/24/23 BASIC METABOLIC PANEL Result Value Ref Range BUN 22 (H) 6 - 20 mg/dL Creatinine 1.1 0.6 - 1.2 mg/dL Estimated Glomerular Filtration Rate 68 >=60 mL/min Sodium 140 135 - 146 mmol/L Potassium 4.6 3.5 - 5.1 mmol/L Chloride 103 98 - 107 mmol/L CO2 28 22 - 32 mmol/L Anion Gap 9 7 - 15 mmol/L Glucose 96 70 - 120 mg/dL Calcium 9.8 8.4 - 10.2 mg/dL Results for orders placed or performed in visit on 08/29/16 LIPID PANEL Result Value Ref Range HOURS FASTING 12 hours Triglycerides 85 <200 mg/dL Cholesterol 148 <200 mg/dL HDL Cholesterol 48 >39 mg/dL Cholesterol-HDL Ratio 3.1 LDL Cholesterol 83 0 - 129 mg/dL Results for orders placed or performed in visit on 02/16/23 LIPID PANEL WITH DIRECT LDL IF TG IS HIGH Result Value Ref Range Triglycerides 171 <=174 mg/dL Cholesterol 113 <200 mg/dL HDL Cholesterol 48 >39 mg/dL Non-HDL Cholesterol 65 <=159 mg/dL Lab Results Component Value Date/Time HEMOGLOBIN A1C - [facility] 5.8 (H) 07/17/2023 03:56 PM HEMOGLOBIN A1C - [facility] 5.8 (H) 07/05/2022 07:57 AM HEMOGLOBIN A1C - [facility] 5.9 (H) 08/23/2021 09:11 AM HEMOGLOBIN A1C - [facility] 5.9 06/27/2016 07:56 AM HEMOGLOBIN A1C - [facility] 6.1 11/22/2015 07:46 AM HEMOGLOBIN A1C - [facility] 6.5 (H) 08/03/2015 08:32 AM Lab Results Component Value Date/Time TSH - [facility] 1.04 08/24/2023 02:54 PM TSH - [facility] 1.05 09/19/2022 01:57 PM TSH - [facility] 2.03 08/23/2021 09:11 AM TSH - [facility] 1.95 03/11/2020 08:32 AM TSH - [facility] 1.98 04/21/2011 02:21 PM TSH - [facility] 2.47 04/26/2010 08:59 AM No results found for: "LOR" Results for orders placed or performed in visit on 09/19/22 VITAMIN B12 Result Value Ref Range Vitamin B12 482 232 - 1,245 pg/mL Results for orders placed or performed in visit on 08/23/21 FOLIC ACID Result Value Ref Range Folic Acid 13.7 >4.5 ng/mL No results found for: "[id number]" No results found for: "[id number]" No results found for: "[id number]" 25OH VITAMIN D TOTAL (ng/mL) Date Value 11/12/2019 25 08/29/2016 27 06/27/2016 28 Vitamin D Level Interpretation deficient: <20 ng/ml insufficient: 20-30 ng/ml normal: 31-100 ng/ml REVIEW OF SYSTEMS: As above PHYSICAL EXAM: BP 136/76 | Pulse 66 | Temp 36.4 C (97.5 F) (Tympanic) | Resp 16 | Wt 94.4 kg (208 lb 3.2 oz) | SpO2 98% | BMI 29.87 kg/m | BSA 2.16 m Patient is awake and alert there is decreased blink frequency facial masking a prominent right handresting tremor with cogwheel rigidity strength is symmetric there is marginal tremor on intention his gait is reasonably good but he tends to turn on block IMPRESSION: Parkinson's disease. Begin levodopa monitoring for nausea lightheadedness confusion expectations managed. It will likely help more with gait than it does with tremor. Return in 2 months and then subsequently with movement disorder Shantel Zhou MD 09/13/2023 4:00 PM documented in this encounter Nursing Notes * Ines Solitario MED ASSIST - 09/13/2023 3:17 PM EDT Chief Complaint Patient presents with Return Neuro Tremor documented in this encounter Plan of Treatment Upcoming Encounters Date Type Department Care Team (Late st Contact Info) Description 09/28/2023 12:45 PM EDT Office Visit Dermatology [facility] [address] [facility] [place] [address] Mitchell Mack MD [address] [facility] [place] [address] 10/02/2023 10:30 AM EDT Office Visit Cardiology, [facility] [address] [place] [address] Marcia Collins CRNP [address] [place] [address] 11/05/2023 1:00 PM EDT Office Visit [facility] [address] [place] [id number] Kaz Robledo MD [address] [place] [address] 11/23/2023 2:40 PM EDT Office Visit Neurology [facility] [address] [place] [address] Shantel Mc PA-C [address] [place] [address] 12/11/2023 8:00 AM EDT Imaging Vascular Lab, [facility] 2nd [facility] [address] [facility] [place] [address] 12/11/2023 9:00 AM EDT Imaging Vascular Lab, [address] [facility] [place] [address] 12/19/2023 8:30 AM EDT Office Visit Vascular Surgery, [facility] [address] [facility] [place] [address] Rancho Soler MD [address] [place] [address] 02/21/2024 1:30 PM EDT Office Visit Neurology [facility] [address] [place] [address] Shantel Mc PA-C [address] [place] [address] 02/28/2024 8:40 AM EDT Office Visit Neurology [facility] [address] [place] [address] Darron Calvillo MD [address] [place], [place] [id number] 03/18/2024 3:00 PM EST Office Visit Cardiology, [facility] [address] [facility] [place] [address] Marcia Collins CRNP [address] [place] [address] Scheduled Procedures Name Priority Associated Diagnoses Date/Ti me COLONOSCOPY FLEXIBLE PROXIMAL DIAGNOSTIC Recall History of colon polyps Health Maintenance Due Date Last Done Comments Alpha-1 Antitrypsin 1963 Colonoscopy 03/20/2020 03/20/2019, 03/07, 10/15/2017, Additional history exists COVID-19 Vaccine ( season) 2023 02/15/2022, 10/06/2021, 03/02/2021, Additional history exists *COPD SEVERITY VERIFIED BY PFT 05/28/2023 *NEPHROLOGY REFERRAL DUE TO RESISTANT HTN 09/13/2023 HbA1c 07/16/2024 07/17/2023, 05/2022, 08/23/2021, Additional history [...] as of this encounter Visit Diagnoses Diagnosis Parkinson's disease without dyskinesia or fluctuating manifestations (HCC)- Primary documented in this encounter Care Teams Cra Relationship Specialty Start Date End Date Kaz Robledo MD [address] [place] [address] PCP - General Family Medicine 03/05/17 documented as of this encounter
--- OUTSIDE RECORDS SUMMARY | 2023-10-19 07:20 | External Medical Summary | Summary of Care ---
Author Name Unknown Organization [facility] Address [address] [place] [address] Phone [phone] Care Team Providers Care Commercial Project Manager Name Role Phone Usha Michaels MD Primary Care Provider [phone]- [phone] Reason for Visit * Reason Comments eRx-Medication Refill Encounter Details Date Type Department Care Team (Late st Contact Info) Description 09/12/2023 Refill [facility] [address] [place] [address] Usha Michaels MD [address] [place] [address] Sleep disorder; Adjustment disorder with mixed anxiety and depressed mood Allergies Active Allergy Reactions Criticality Noted Date [...] 24 Hour (Imdur)Indication s:Coronary artery disease involving [place] coronary artery of [place] heart without angina pectoris,Chronic coronary artery disease [...] 4 Active clonazePAM 0.5 MG Oral Tablet (KlonoPIN)Indicat ions:Sleep disorder,Adjustme nt disorder with mixed anxiety and depressed mood TAKE 1 TO 2 TABLETS BY MOUTH ONCE DAILY AT BEDTIME FOR SLEEP 60 Tablet 0 4 Active clonazePAM 0.5 MG Oral Tablet (KlonoPIN)Indicat ions:Sleep disorder,Adjustme nt disorder with mixed anxiety and depressed mood TAKE 1 TO 2 TABLETS BY MOUTH ONCE DAILY AT BEDTIME FOR SLEEP 60 Tablet 0 4 09/13/19 24 Discontinued documented as of this encounter [...] disorder 02/15/2012 09/03/2017 Genetic Sleep Disorder [facility] Other*[id number] 06/26/2011 12/08/2015 EXAMINATION OF PARTICIPANT I N CLINICAL TRIAL-Genomics 06/04/2009 08/20/2009 Overview: Renamed Per Clinical Trials Billing Project. Study Titile: Genomic Markers for Patients with Cardiovascular Disease Project #[id number] PI: Radha Yepez MD Please call [phone] with study related questions GENOMICS CARDIO RESEARCH OTHER*[id number] 06/04/2009 06/13/2016 Overview: Renamed Per Clinical Trials Billing Project. Study Titile: Genomic Markers for Patients with Cardiovascular Disease Project #[id number] PI: Radha Yepez MD Please call [phone] with study related questions Benign neoplasm of [...] 30 Mcg, IM, 12 yrs and above ([employer]) 02/15/2022 H1N1 2009 Influenza, IM 05/10/2009 Pneumococcal [...] encounter Miscellaneous Notes * Telephone Encounter - Usha Michaels MD - 09/13/2023 5:21 PM EDTSigned Prescriptions: Disp Refills clonazePAM 0.5 MG Oral Tablet (KlonoPIN) 60 Tab*0 Sig: TAKE 1 TO2 TABLETS BY MOUTH ONCE DAILY AT BEDTIME FOR SLEEPAuthorizing Provider: USHA MICHAELS--------- * Telephone Encounter - Rosendo Harris RPh - 09/13/2023 4:19 PM EDTPending Prescriptions: Disp Refills clonazePAM 0.5 MG Oral Tablet [Pharmacy Me*60 Tab*0 Sig: TAKE 1 TO 2 TABLETS BY MOUTH ONCE DAILY AT BEDTIME FOR SLEEP * Telephone Encounter - Rosendo Harris RPh - 09/13/2023 4:19 PM EDT I have reviewed the patients controlled substance dispensing history in the Prescription Drug Monitoring Program in compliance with the [facility] regulations before prescribing a controlled substance. PDMP checked on 09/13/2023. Pending Prescriptions: Disp Refills clonazePAM 0.5 MG Oral Tablet (KlonoPIN) *60 Tab*0 Sig: TAKE 1 TO 2 TABLETS BY MOUTH ONCE DAILY AT BEDTIME FOR SLEEP Last Visit: 07/16/2023 (in office), Visit date not found (telemedicine) Next Visit: 11/05/2023 Date medication was last filled: 07/16/23 Date medication is due for refill: 08/14/23 Pharmacy: [id number] [facility] [place] Is this request for a controlled substance? Yes and Urine Drug Screen was completed Toxicology results: No results found. However, due to the size of the patient record, not all encounters were searched.Please check Results Review for a complete set of results. Please approve if appropriate. Thanks, Rosendo Harris Rph, Pharm D. Clinical Pharmacist Centralized Clinical Pharmacy Services (Formerly Telepharmacy)/[facility] [phone] 09/13/2023,4:19 PM documented in this encounter Plan of Treatment Upcoming Encounters Date Type Department Care Team (Late st Contact Info) Description 09/28/2023 12:45 PM EDT Office Visit Dermatology [facility] [address] [facility] [place] [address] Mitchell Mack MD [address] [facility] [place] [address] 10/02/2023 10:30 AM EDT Office Visit [facility], [facility] [place] [address] Marcia Collins CRNP [address] [place] [address] 11/05/2023 1:00 PM EDT Office Visit [facility] [address] [place] [address] Usha Michaels MD [address] [place] [address] 11/23/2023 2:40 PM EDT Office Visit Neurology [facility] [address] [place] [address] Shantel Mc PA-C [address] [facility] [place] [address] 12/11/2023 8:00 AM EDT Imaging Vascular Lab, [facility] [address] [facility] [place] [address] [facility] [place] [address] 12/11/2023 9:00 AM EDT Imaging Vascular Lab, [facility] [address] [facility] [place] [address] [facility] [place] [address] 12/19/2023 8:30 AM EDT Office Visit [facility]ascular [facility], [facility] [place] [address] Rancho Soler MD [address] [place] [address] 02/21/2024 1:30 PM EDT Office Visit Neurology [facility] [address] [place] [address] Shantel Mc PA-C [address] [place] [address] 02/28/2024 8:40 AM EDT Office Visit Neurology [facility] [address] [place] [address] Darron Calvillo MD [address] [place] [address] 03/18/2024 3:00 PM EST Office Visit Cardiology, [facility] [address] [place] [address] Marcia Collins CRNP [address] [facility] [place] [address] Scheduled Procedures Name Priority Associated Diagnoses Date/Ti me COLONOSCOPY FLEXIBLE PROXIMAL DIAGNOSTIC Recall History of colon polyps Health Maintenance Due Date Last Done Comments Alpha-1 Antitrypsin 1963 Colonoscopy 03/20/2020 03/20/2019, 03/07, 10/15/2017, Additional history exists COVID-19 Vaccine ( season) 2023 02/15/2022, 10/06/2021, 03/02/2021, Additional history exists *COPD SEVERITY VERIFIED BY PFT 05/28/2023 *NEPHROLOGY REFERRAL DUE TO RESISTANT HTN 09/13/2023 HbA1c 07/16/2024 07/17/2023, 03/0 05/2022, 08/23/2021, Additional [...] as of this encounter Visit Diagnoses Diagnosis Sleep disorder Sleep disturbance, unspecified Adjustment disorder with mixed anxiety and depressed mood documented in this encounter Care Teams Commercial Project Manager Relationship Specialty Start Date End Date Usha Michaels MD [address] [place] [address] PCP - General Family Medicine 03/05/17 documented as of this encounter
--- OUTSIDE RECORDS SUMMARY | 2023-10-19 07:21 | External Medical Summary | Summary of Care ---
Author Name Unknown Organization [facility] Address [address] [address] Phone [phone] Care Team Providers Care Organization Development Consultant Name Role Phone Kaz Robledo MD Primary Care Provider +1- [phone] Reason for Referral * Precert (Within 24 hrs (call dept; emergent)) - Pending Review Specialty Diagnoses / Procedures Referred By Yuan peterson Referred To Contact Radiology Diagnoses New onset atrial flutter (HCC) Elevated d-dimer Chest pain, unspecified type Procedures CT PULMONARY EMBOLUS W CONTRAST Marcia Collins CRNP [address] [place] [address] Referral ID Status Reason Start Date Expiration Date V isits Requested Visits Authorized [id number] Pending Review 08/27/2023 999 999 Reason for Visit * Reason Onset Date Comments Outpatient Testing 08/27/2023 Encounter Details Date Type Department Care Team (Late st Contact Info) Description 08/27/2023 Telephone Cardiology, [facility] [address] [place] [address] Marcia Collins CRNP [address] [place] [address] Outpatient Testing Allergies Active Allergy Reactions Criticality [...] 24 Hour (Imdur)Indications :Coronary artery disease involving [place] coronary artery of [place] heart without angina pectoris,Chronic coronary artery disease [...] disorder 02/15/2012 09/03/2017 Genetic Sleep Disorder Resea [facility] Other*[id number] 06/26/2011 12/08/2015 EXAMINATION OF PARTICIPANT I N CLINICAL TRIAL-Genomics 06/04/2009 08/20/2009 Overview: Renamed Per Clinical Trials Billing Project. Study Titile: Genomic Markers for Patients with Cardiovascular Disease Project #[id number] PI: Radha Yepez MD Please call [phone] with study related questions GENOMICS CARDIO RESEARCH OTHER*[id number] 06/04/2009 06/13/2016 Overview: Renamed Per Clinical Trials Billing Project. Study Titile: Genomic Markers for Patients with Cardiovascular Disease Project #[id number] PI: Radha Yepez MD Please call [phone] with study related questions Benign neoplasm of [...] 30 Mcg, IM, 12 yrs and above ([place]) 02/15/2022 H1N1 2009 Influenza, IM 05/10/2009 Pneumococcal [...] Upcoming Encounters Date Type Department Care Team (Santiago Contact Info) Description 08/29/2023 10:30 AM EDT Imaging [facility] 2nd Floor Cardiology, [place] [address] [facility] [place] [address] 08/29/2023 2:30 PM EDT Imaging [facility] 2nd [facility] Cardiology, [place] [facility] [address] 08/31/2023 8:00 AM EDT Imaging Radiology [facility] 1st [facility], [place] 132 [place] [address] 09/13/2023 3:40 PM EDT Office Visit Neurology [facility] [address] [place] [address] Shantel Zhou MD [address] [place] [address] 09/28/2023 12:45 PM EDT Office Visit Dermatology [facility] [address] [place] [address] Mitchell Mack MD [address] [place] [address] 10/02/2023 10:30 AM EDT Office Visit Cardiology, [facility] [address] [facility] [place] [phone] Marcia Collins CRNP [address] [facility] [place] [address] 11/05/2023 1:00 PM EDT Office Visit [facility] [address] [place] [phone] Kaz Robledo MD [address] [place] [address] 12/11/2023 8:00 AM EDT Imaging Vascular Lab, [address] [facility] [place] [address] 12/11/2023 9:00 AM EDT Imaging Vascular Lab, [facility] 2nd Floor, [place] 132 [facility] [place] [address] 12/19/2023 8:30 AM EDT Office Visit Vascular Surgery, [facility] [address] [facility] [place] [address] Rancho Soler MD [address] [place] [address] 02/21/2024 1:30 PM EDT Office Visit Neurology [facility] [address] [place] [address] Shantel Mc PA-C [address] [place] [address] 02/28/2024 8:40 AM EDT Office Visit Neurology [facility] [address] [place] [address] Darron Calvillo MD [address] [place] [address] 03/18/2024 3:00 PM EST Office Visit Cardiology, [facility] 132 [place] [address] Marcia Collins CRNP [address] [facility] [place] [address] Scheduled Orders Name Type Priority Associated Diagnoses [...] VERIFIED BY PFT 05/28/2023 HbA1c 07/16/2024 07/17/2023, 030 05/2022, 08/23/2021, Additional history exists GFR 08/23/2024 [...] type documented in this encounter Care Teams Organization Development Consultant Relationship Specialty Start Date End Date Kaz Robledo MD [address] [place] [address] PCP - General Family Medicine 03/05/17 documented as of this encounter
--- OUTSIDE RECORDS SUMMARY | 2023-10-19 07:21 | External Medical Summary | Summary of Care ---
Author Name Unknown Organization [facility] Address [address] [facility] [place] [address] Phone [phone] Care Team Providers Care Client Technical Support Associate Name Role Phone Kaz Robledo MD Primary Care Provider +1- [phone] Reason for Visit * Reason Comments Follow Up Encounter Details Date Type Department Care Team (Late st Contact Info) Description 08/24/2023 2:00 PM EDT Office Visit Cardiology, [facility] [address] [place] [address] Marcia Collins CRNP [address] [place] [address] Chest pain, unspecified type*; Chronic coronary artery disease; New onset atrial flutter (HCC); HTN, goal below 140/90 Allergies Active Allergy Reactions Criticality Noted Date Comments Atorvastatin Muscle pain 12/11/2016 Bee Stings 02/21/1999 Hives,intense itching,edema documented as of this encounter (statuses as of 08/25/2023) Medications Medication Sig Dispensed Refills Start Date [...] 24 Hour (Imdur)Indications :Coronary artery disease involving [place] coronary artery of [place] heart without angina pectoris,Chronic coronary artery [...] 100,Chronic coronary artery disease,PAD (peripheral artery disease) ([facility]) INJECT 420 MG UNDER THE SKIN EVERY [...] as of this encounter (statuses as of 08/25/2023) Active Problems Problem Noted Date Diagnosed Date [...] as of this encounter (statuses as of 08/25/2023) Resolved Problems Problem Noted Date Diagnosed Date [...] disorder 02/15/2012 09/03/2017 Genetic Sleep Disorder Resea [facility] Other*[id number] 06/26/2011 12/08/2015 EXAMINATION OF PARTICIPANT I N CLINICAL TRIAL-Genomics 06/04/2009 08/20/2009 Overview: Renamed Per Clinical Trials Billing Project. Study Titile: Genomic Markers for Patients with Cardiovascular Disease Project #[id number] PI: Radha Yepez MD Please call [phone] with study related questions GENOMICS CARDIO RESEARCH OTHER*[id number] 06/04/2009 06/13/2016 Overview: Renamed Per Clinical Trials Billing Project. Study Titile: Genomic Markers for Patients with Cardiovascular Disease Project #[id number] PI: Radha Yepez MD Please call [phone] with study related questions Benign neoplasm of [...] as of this encounter (statuses as of 08/25/2023) Immunizations Name Administration Dates Next Due COVID-19 mRNA, LNP-s, No Pre serve, 2-Dose Series (Moderna) 07/02/2020,06/03/2020 COVID-19, mRNA, LNP-s, PF, B ooster, 100mcg/0.5mg (Moderna) 10/06/2021,03/02/2021 Covid-19, Mrna, Lnp-s, Pf, B ivalent, 30 Mcg, IM, 12 yrs and above ([employer]) 02/15/2022 H1N1 2009 Influenza, IM 05/10/2009 Pneumococcal [...] Passive Smoke Exposure: Past Smokeless Tobacco: Never Tobacco Cessation:Counseling Given: Not Answered Comments:no smoking since 2002 Alcohol Use Standard Drinks/Week Comments No 0 [...] Sign Reading Time Taken Comments Blood Pressure 152/82 08/24/2023 1:48 PM EDT Pulse 66 08/24/2023 1:48 PM EDT Temperature - - Respiratory Rate - - Oxygen Saturation 95% 08/24/2023 1:48 PM EDT Inhaled Oxygen Concentration - - Weight 94.8 kg (209 lb) 08/24/2023 1:48 PM EDT Height - - Body Mass Index 29.99 07/16/2023 2:20 PM EDT documented in this encounter Progress Notes * Marcia Collins CRNP - 08/24/2023 2:00 PM EDT 08/24/2023 Cardiology Follow Up Primary Endless Bed Drum Sander: JAGDISH; formerly Dr. Pringle Cardiac Problems: 1. 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 2. History of postprandial angina resolved. 3. Carotid occlusive disease. 4. Hypertension. 5. Hyperlipidemia. 6. Erectile dysfunction. 7. Peripheral arterial disease. 8. Subarachnoid/subdural hematoma. 9. History of intolerance to atorvastatin. HPI: Landen Camacho is a 78 year old male presents for acute cardiology concerns. Patient is well known to the practice and was last seen by the undersigned one month ago. At that time he complained of ongoing "flucuations" in his blood pressure, but was taking his readings beforeand after medications. He had been seen by his PCP around the same time for acute URI symptoms and was placed on amoxicillin. Patient is under a lot of stress as his has progressive dementia and he has moved her to multiple different [facility] facilities. He follows with neurology and was prescribed gabapentin and reports that he took one dose and "didn't feel right" and so he presents today for further evaluation. Of note, he is to be seeing neurology, scheduled for 2 weeks. He presents today feeling poorly. He saw his PCP who prescribed topiramate. He felt woozy on it. [facility] on 08/17/23 who prescribed gabapentin he picked this up on 08/18/23. He took one pill and felt like a zombie, felt very spacey. He took none since, called neurology and advised them that he did not take anymore. He was told he could be seen in September, or go to the ED. He reports that he developed chest pain that day and continues with episodes. He reports that he has been taking 2 SL NTGevery day since 08/20/23 BP above target today, patient is anxious EKG obtained which demonstrates Atrial Flutter with incomplete Right BBB, Left anterior fasicular block and non-specific ST abnormality. Patient had a resting echocardiogram and Nuclear stress test May 2023 which was negative for ischemia. There is notation of moderate aortic calcification, but it is not restricting the way in which the valve opens or closes. Patient reports that he does not have chest pain at this time, he denies any shortness of breath, no lightheadedness or dizziness, no edema. No syncopal episodes. REVIEW OF SYSTEMS: See HPI for pertinent [...] Atorvastatin Muscle pain Bee Stings Hives,intense itching,edema Current Outpatient Medications Medication Sig Dispense Refill [...] BY MOUTH EVERY MORNING 90 Tablet 3 Repatha Pushtronex System 420 MG/3.5ML Subcutaneous Solution Cartridge (Evolocumab with Infusor) INJECT 420 MG UNDER THE SKIN EVERY MONTH -- ADMINISTER OVER 5 MINUTES -- REMOVE FROM REFRIGERATOR 45 MINUTES PRIOR TO INJECTION 10.5 mL 3 Apixaban 5 MG Oral Tablet (Eliquis) Take 1 Tablet by mouth in the morning and 1 Tablet before bedtime. 180 Tablet 3 Apixaban 5 MG Oral Tablet (Eliquis) Take 1 Tablet by mouth in the morning and 1 Tablet before bedtime. 10 Tablet 0 Gabapentin 100 MG Oral Capsule (Neurontin) 1 tab at bedtime x 7 days then 1 tab twice daily x 7 days then 1 tab three times daily (Patient not taking: Reported on 08/24/2023) 90 Capsule 2 No current facility-administered medications for this visit. Past Medical History: Diagnosis Date Allergic disorder bee sting Basal cell cancer 11/04/2013 Benign neoplasm of colon 05/11/2008 adenomatous/repeat colonoscopy in 3 yrs Carotid stenosis, non-symptomatic Carotid stenosis, non-symptomatic left side totally obstructed CHR ISCHEMIC HRT DIS NEC 07/08/2009 total occlusion of the proximal LAD with hjyb-mh-ribzf collaterals with 50% diffuse mid RCA Depressive disorder, not elsewhere classified Dyslipidemia, goal to be determined Other acute sinusitis Subdural hemorrhage (HCC) Family History Problem Relation Age of Onset No Past Hx Mother Lived until 86 Mental Disorder Father "black lung", continuous mining machine lode miner No Past Hx Son Asthma Daughter ? [...] Partners: Female Social History Narrative Works at [employer] Social Determinants of Health Food Insecurity: No Food Insecurity (01/22/2023) Hunger Vital Sign Worried About Running Out of Food in the Last Year: Never true Ran Out of Food in the Last Year: Never true OBJECTIVE/PHYSICAL EXAMINATION: BP 152/82 | Pulse 66 | Wt 94.8 kg (209 lb) | SpO2 95% | BMI 29.99 kg/m | BSA 2.16 m General: No [...] 78 year old year old male 1. Chest pain, unspecified type New onset atrial flutter (HCC) -Etiology likely s/t new onset atrial flutter -Recent negative stress test. -EKG today demonstrates New onset Atrial flutter. Rate controlled. -Euvolemic on exam. -Continue his current dosing of Toprol xl. -Start Eliquis 5mg PO BID immediately. -Will obtain labs today to look for possible etiology for event as well as have baseline CBC and D-dimer -If D-dimer would be elevated, would recommend for CT CHEST to exclude PE. -Advised that if patient has worsening chest pain, new onset shortness of breath or near syncopal symptoms he is to present to the ED immediately. - D-DIMER; Future - Apixaban 5 MG Oral Tablet (Eliquis); Take 1 Tablet by mouth in the morning and 1 Tablet before bedtime. Dispense: 180 Tablet; Refill: 3 - BASIC METABOLIC PANEL; Future - EKG COMPLETE (TRACING AND INTERP) - MAGNESIUM; Future - CBC; Future - TSH; Future - Apixaban 5 MG Oral Tablet (Eliquis); Take 1 Tablet by mouth in the morning and 1 Tablet before bedtime. Dispense: 10 Tablet; Refill: 0 - D-DIMER; Future Chronic coronary artery disease -Recent negative stress test. -Continue toprol xl, Imdur, Amlodipine, lisinopril, repatha and ASA 81mg. 4. HTN, goal below 140/90 -Elevated today, likely situational. -Continue Toprol xl, Imdur, Amlodipine, lisinopril and Terazosin -Continue home Monitoring. DISPOSITION: Follow up 5 weeks or if symptoms worsen/fail to improve. All questions were answered to the patients satisfaction. Patient advised to report to ED with any and all emergencies. The patient agrees to the above plan and will call with additional questions or concerns. [facility], [address] [place] [address] I spent a total of 45 minutes on the date of service in preparation, delivery, and documentation ofthe care provided to Landen Camacho excluding any time spent in the performance of separately billed services. This chart was completed in part utilizing [employer] Speech Voice Recognition Software. Grammatical errors, random word insertions, pronoun errors, and incomplete sentences are an occasional consequence of this system due to software limitations, ambient noise, and hardware issues. Any formal questions or concerns about the content, text, or information contained within the body of this dictation should be directly addressed to the provider for clarification. documented in this encounter Procedure Notes * Cuauhtemoc Ko DO - 08/24/2023 1:54 PM EDTAssociated Order(s): EKG COMPLETE (TRACING AND INTERP) REASON FOR STUDY: Chest pain;Chest pain CONCLUSIONS: Atrial flutter Incomplete right bundle branch block Left anterior fascicular block High QRS voltage may be normal variant or due to lve Nonspecific ST abnormality Abnormal ECG When compared with ECG of 13-Mar-2023 10:11, Atrial flutter has replaced Sinus rhythm Incomplete right bundle branch block is now Present Ventricular Rate: 67 Atrial Rate: 288 QRS Duration: 92 QT/QTc: 408/431 ms P-R-T [place]: 0 : -62 : 37 degrees documented in this encounter Nursing Notes * Shelia Valencia CMA - 08/24/2023 1:47 PM EDT Examination Room: 4 Name: Landen Camacho Date of : (1945) Reason for Visit: chest pain Interim Hospitalization(s): none Problems/Concerns: denied Chest Pain/SOB: still having chest pressure and SOB. Has been taking about every other day. My [facility] is a way you can [...] Info) Description 08/29/2023 10:30 AM EDT Imaging [address] [facility] 132 [facility] [place] [address] 08/29/2023 2:30 PM EDT Imaging [address] Cardiology, [place] 132 [facility] [place] [address] 09/13/2023 3:40 PM EDT Office Visit Neurology [facility] [address] [place] [address] Shantel Zhou MD [address] [place] [address] 09/28/2023 12:45 PM EDT Office Visit Dermatology [facility] [address] [place] [address] Mitchell Mack MD 200 [facility] [place] [address] 10/02/2023 10:30 AM EDT Office Visit Cardiology, [facility] 132 [facility] [place] [address] Marcia Collins CRNP 132 [place] [address] 11/05/2023 1:00 PM EDT Office Visit [place] [address] [place] [address] Kaz Robledo MD [address] [place] [address] 12/11/2023 8:00 AM EDT Imaging Vascular Lab, [address] [facility] [place] [address] 12/11/2023 9:00 AM EDT Imaging Vascular Lab, [address] [facility] [place] [address] 12/19/2023 8:30 AM EDT Office Visit Vascular Surgery, [facility] 132 [facility] [address] Rancho Soler MD [address] [place], [place] [address] 02/21/2024 1:30 PM EDT Office Visit Neurology [facility] [address] [place] [address] Shantel Mc PA-C [address] [place] [address] 02/28/2024 8:40 AM EDT Office Visit Neurology [facility] [address] [place] [address] Darron Calvillo MD [address] [place], [place] [address] 03/18/2024 3:00 PM EST Office Visit Cardiology, [facility] 132 [place] [address] Marcia Collins CRNP 132 [place] [address] Scheduled Procedures Name Priority Associated Diagnoses Date/Ti [...] 08/23/2021, Additional history exists GFR 08/23/2024 08/24/2023, /1 06/2023, 09/19/2022, Additional history exists O2 ASSESSMENT COMPLETED [...] Not on filedocumented as of this encounter Procedures Procedure Name Priority Date/Time Associated Diagnosis Comments SD ECG ROUTINE ECG W/LEAST 12 LDS W/I&R Routine 08/24/2023 1:54 PM EDT New onset atrial flutter (HCC) documented in this encounter Results * (ABNORMAL) D-DIMER (08/24/2023 2:54 PM EDT) D-Dimer 0.81(H) <0.50 ug/mL FEU 08/24/2023 11:45 PM EDT LABORATORY [facility] Blood Venous blood specimen / Unknown Venipuncture / Unknown 08/24/2023 2:54 PM EDT 08/24/2023 2:54 PM EDT Narrative LABORATORY [facility] - 08/24/2023 11:45 PM EDT Rheumatoid factor at a level above 50 IU/mL may lead to an overestimation of the D-dimer level. A normal D-dimer result (<0.50 ug/mL FEU) has a negative predictive value of approximately 95% for the exclusion of acute pulmonary embolism (PE) or deep vein thrombosis when there is low or moderate pretest PE probability. Increased D-dimer values are abnormal but do not indicate a specific disease state and the D-dimer increase does not definitively correlate with clinical severity of disease. Marcia DE LA GARZA LAB BLOOD ORDER LESLIE Performing Organization Address City/[facility]/ZIP Co de Phone Number LABORATORY [facility] [address] [place] [address] * TSH (08/24/2023 2:54 PM EDT) Pathologist [facility] TSH 1.04 0.27 - 4.20 uIU/mL 08/24/2023 11:44 PM EDT LABORATORY [facility] Blood Venous blood specimen / Unknown Venipuncture / Unknown 08/24/2023 2:54 PM EDT 08/24/2023 2:54 PM EDT Marcia DE LA GARZA LAB BLOOD ORDER LESLIE Performing Organization Address [facility] Co de Phone Number LAB[facility]ATORY [facility] [address] [place] [address] * CBC (08/24/2023 2:54 PM EDT) WBC 9.00 4.00 - 10.80 K/uL 08/24/2023 3:05 PM EDT LABORATORY [place] [facility] RBC 4.58 4.50 - 5.25 M/uL 08/24/2023 3:05 PM EDT LABORATORY [place] [facility] HGB 14.3 14.0 - 16.8 g/dL 08/24/2023 3:05 PM EDT LABORATORY [place] [facility] HCT 42.3 40.0 - 48.4 % 08/24/2023 3:05 PM EDT LABORATORY [place] [facility] MCV 92.4 82.0 - 99.5 fL 08/24/2023 3:05 PM EDT LABORATORY [place] [facility] MCH 31.2 27.0 - 34.0 pg 08/24/2023 3:05 PM EDT LABORATORY [place] [facility] MCHC 33.8 32.0 - 36.0 g/dL 08/24/2023 3:05 PM EDT LABORATORY [place] [facility] RDW 12.8 11.5 - 15.5 % 08/24/2023 3:05 PM EDT LABORATORY [place] [facility] PLT 219 140 - 400 K/uL 08/24/2023 3:05 PM EDT LABORATORY [place] [facility] MPV 10.3 6.6 - 11.1 fL 08/24/2023 3:05 PM EDT LABORATORY [place] [facility] Blood Venous blood specimen / Unknown Venipuncture / Unknown 08/24/2023 2:54 PM EDT 08/24/2023 2:54 PM EDT Marcia DE LA GARZA LAB BLOOD ORDER LELSIE LABORATORY [place] [address] [place] [address] * MAGNESIUM (08/24/2023 2:54 PM EDT) Magnesium 2.3 1.5 - 2.6 mg/dL 08/24/2023 11:09 PM EDT LABORATORY [facility] Blood Venous blood specimen / Unknown Venipuncture / Unknown 08/24/2023 2:54 PM EDT 08/24/2023 2:54 PM EDT Marcia DE LA GARZA LAB BLOOD ORDER LESLIE LABORATORY [facility] [address] [place] [address] * (ABNORMAL) BASIC METABOLIC PANEL (08/24/2023 2:54 PM EDT) BUN 22(H) 6 - 20 mg/dL 08/24/2023 3:58 PM EDT LABORATORY [place] [facility] Creatinine 1.1 0.6 - 1.2 mg/dL 08/24/2023 3:58 PM EDT LABORATORY [place] [facility] Estimated Glomerular Filtration Rate 68 >=60 mL/min 08/24/2023 3:58 PM EDT LABORATORY [place] [facility]10 Comment:eGFR is calculated b ased on the CKD-EPI 2020 equation Sodium 140 135 - 146 mmol/L 08/24/2023 3:58 PM EDT LAB[facility]ORY [facility] 57[facility]10 Potassium 4.6 3.5 - 5.1 mmol/L 08/24/2023 3:58 PM EDT LABORATORY [place] 57-10 Chloride 103 98 - 107 mmol/L 08/24/2023 3:58 PM EDT LABORATORY [place] [facility] CO2 28 22 - 32 mmol/L 08/24/2023 3:58 PM EDT LABORATORY [place] [facility] Anion Gap 9 7 - 15 mmol/L 08/24/2023 3:58 PM EDT LABORATORY [place] [facility]10 Glucose 96 70 - 120 mg/dL 08/24/2023 3:58 PM EDT LABORATORY [place] [facility] Calcium 9.8 8.4 - 10.2 mg/dL 08/24/2023 3:58 PM EDT LABORATORY [place] [facility]10 Blood Venous blood specimen / Unknown Venipuncture / Unknown 08/24/2023 2:54 PM EDT 08/24/2023 2:54 PM EDT Marcia DE LA GARZA LAB BLOOD ORDER LESLIE LABORATORY [place] [address] [place] [address] * EKG COMPLETE (TRACING AND INTERP) (08/24/2023 1:54 PM EDT) 08/24/2023 1:54 PM EDT Narrative Procedure Note Cuauhtemoc Ko DO - 08/24/2023 1:54 PM EDT REASON FOR STUDY: Chest pain;Chest pain CONCLUSIONS: Atrial flutter Incomplete right bundle branch block Left anterior fascicular block High QRS voltage may be normal variant or due to lve Nonspecific ST abnormality Abnormal ECG When compared with ECG of 13-Mar-2023 10:11, Atrial flutter has replaced Sinus rhythm Incomplete right bundle branch block is now Present Ventricular Rate: 67 Atrial Rate: 288 QRS Duration: 92 QT/QTc: 408/431 ms P-R-T [place]: 0 : -62 : 37 degrees Marcia DE LA GARZA EKG [facility] CARDIOLOG[facility] documented in this encounter Visit Diagnoses Diagnosis Chest pain, unspecified type- Primary Chronic coronary artery disease Coronary atherosclerosis of unspecified type of vessel, [place] or graft New onset atrial flutter (HCC) Atrial flutter HTN, goal below 140/90 Unspecified essential hypertension documented in this encounter Care Teams Client Technical Support Associate Relationship Specialty Start Date End Date Kaz Robledo MD [address] [place] [address] PCP - General Family Medicine 03/05/17 documented as of this encounter
--- OUTSIDE RECORDS SUMMARY | 2023-10-19 07:21 | External Medical Summary | Summary of Care ---
Author Name Unknown Organization [facility] Address [address] [facility] [address] Phone [phone] Care Team Providers Care Nurse Practitioner Hospitalist Name Role Phone Kaz Robledo MD Primary Care Provider +1- [phone] Reason for Referral * Precert (Within 24 hrs (call dept; emergent)) - Pending Review Specialty Diagnoses / Procedures Referred By Yuan peterson Referred To Contact Radiology Diagnoses New onset atrial flutter (HCC) Elevated d-dimer Chest pain, unspecified type Procedures CT PULMONARY EMBOLUS W CONTRAST Marcia Collins CRNP [address] [place] [address] Referral ID Status Reason Start Date Expiration Date V isits Requested Visits Authorized [id number] Pending Review 08/27/2023 999 999 Reason for Visit * Reason Onset Date Comments Outpatient Testing 08/27/2023 Encounter Details Date Type Department Care Team (Late st Contact Info) Description 08/27/2023 Telephone Cardiology, [facility] [address] [place] [address] Marcia Collins CRNP [address] [place] [address] Outpatient Testing Allergies Active Allergy Reactions Criticality Noted Date Comments Atorvastatin Muscle pain 12/11/2016 Bee Stings 02/21/1999 Hives,intense itching,edema documented as of this encounter (statuses as of 08/27/2023) Medications Medication Sig Dispensed Refills Start Date [...] 24 Hour (Imdur)Indications :Coronary artery disease involving pechanga coronary artery of pechanga heart without angina pectoris,Chronic coronary artery disease [...] as of this encounter (statuses as of 08/27/2023) Active Problems Problem Noted Date Diagnosed Date [...] as of this encounter (statuses as of 08/27/2023) Resolved Problems Problem Noted Date Diagnosed Date [...] disorder 02/15/2012 09/03/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 Study Titile: Genomic Markers for Patients with Cardiovascular Disease Project #[id number] PI: Radha Yepez MD Please call [phone] with study related questions GENOMICS CARDIO RESEARCH OTHER*[id number] 06/04/2009 06/13/2016 Overview: Renamed Per Clinical Trials Billing Project. Study Titile: Genomic Markers for Patients with Cardiovascular Disease Project #[id number] PI: Radha Yepez MD Please call [phone] with study related questions Benign neoplasm of [...] as of this encounter (statuses as of 08/27/2023) Immunizations Name Administration Dates Next Due COVID-19 mRNA, LNP-s, No Pre serve, 2-Dose Series (Moderna) 07/02/2020,06/03/2020 COVID-19, mRNA, LNP-s, PF, B ooster, 100mcg/0.5mg (Moderna) 10/06/2021,03/02/2021 Covid-19, Mrna, Lnp-s, Pf, B ivalent, 30 Mcg, IM, 12 yrs and above ([employer]) 02/15/2022 H1N1 2009 Influenza, IM 05/10/2009 Pneumococcal [...] encounter Miscellaneous Notes * Telephone Encounter - Marin Velásquez LPN - 08/27/2023 4:18 PM EDT Patient returned call and was advised of Marcia's message. Patient verbalized understanding. CT ordered. Scheduling please assist or forward to help patient schedule. * Telephone Encounter - Maxx Edwards, GUS - 08/27/2023 3:05 PM EDT Called and [...] Info) Description 08/29/2023 10:30 AM EDT Imaging [facility] 2nd Floor Cardiology, [address] [place] [address] 08/29/2023 2:30 PM EDT Imaging [facility] 2nd Floor Cardiology, [place] [address] [facility] [place] [address] 09/13/2023 3:40 PM EDT Office Visit Neurology [facility] [address] [place] [address] Shantel Zhou MD [address] [place] [address] 09/28/2023 12:45 PM EDT Office Visit Dermatology [facility] [address] [place] [address] Mitchell Mack MD 200 [facility] [place] [address] 10/02/2023 10:30 AM EDT Office Visit Cardiology, [facility] 132 [facility] [place] [address] Marcia Collins CRNP [address] [facility] [place] [address] 11/05/2023 1:00 PM EDT Office Visit [facility] [address] [place] [address] Kaz Robledo MD [address] [place] [address] 12/11/2023 8:00 AM EDT Imaging Vascular Lab, [facility] 2nd [facility] [address] [facility] [place] [address] 12/11/2023 9:00 AM EDT Imaging Vascular Lab, [facility] 2nd [facility] [address] [facility] [address] 12/19/2023 8:30 AM EDT Office Visit Vascular Surgery, [facility] [address] [place] [address] Rancho Soler MD [address] [place] [address] 02/21/2024 1:30 PM EDT Office Visit Neurology [facility] [address] [place] [address] Shantel Mc PA-C [address] [place] [address] 02/28/2024 8:40 AM EDT Office Visit Neurology [facility] [address] [place] [address] Darron Calvillo MD [address] [place] [address] 03/18/2024 3:00 PM EST Office Visit Cardiology, [facility] [address] [facility] [place] [address] Marcia Collins CRNP [address] [place] [address] Scheduled Orders Name Type Priority Associated Diagnoses [...] 08/23/2021, Additional history exists GFR 08/23/2024 08/24/2023, 03/1 06/2023, 09/19/2022, Additional history exists O2 ASSESSMENT COMPLETED IN PAST YEAR FOR COPD 08/23/2024 08/24/2023 Albumin/Creatinine Ratio 07/17/2026 07/18/2023, 0510/2022 DTaP,Tdap,and Td Vaccines (3 - Td or [...] type documented in this encounter Care Teams Nurse Practitioner Hospitalist Relationship Specialty Start Date End Date Kaz Robledo MD [address] [place] [address] PCP - General Family Medicine 03/05/17 documented as of this encounter
--- OUTSIDE RECORDS SUMMARY | 2023-10-19 07:21 | External Medical Summary | Summary of Care ---
Author Name Unknown Organization [facility] Address [address] [facility] [address] Phone [phone] Care Team Providers Care Statement Request Clerk Name Role Phone Kaz Robledo MD Primary Care Provider +1- [phone] Reason for Referral * Precert (Within 24 hrs (call dept; emergent)) - Pending Review Specialty Diagnoses / Procedures Referred By Yuan peterson Referred To Contact Radiology Diagnoses New onset atrial flutter (HCC) Elevated d-dimer Chest pain, unspecified type Procedures CT PULMONARY EMBOLUS W CONTRAST Marcia Collins CRNP [address] [place] [address] Referral ID Status Reason Start Date Expiration Date V isits Requested Visits Authorized [id number] Pending Review 08/27/2023 999 999 Reason for Visit * Reason Onset Date Comments Outpatient Testing 08/27/2023 Encounter Details Date Type Department Care Team (Late st Contact Info) Description 08/27/2023 Telephone Cardiology, [facility] [address] [place] [address] Marcia Collins CRNP [address] [place] [address] Outpatient Testing Allergies Active Allergy Reactions Criticality [...] 24 Hour (Imdur)Indications :Coronary artery disease involving cabazon coronary artery of cabazon heart without angina pectoris,Chronic coronary artery disease [...] disorder 02/15/2012 09/03/2017 Genetic Sleep Disorder Resea [facility] Other*[id number] 06/26/2011 12/08/2015 EXAMINATION OF PARTICIPANT I N CLINICAL TRIAL-Genomics 06/04/2009 08/20/2009 Overview: Renamed Per Clinical Trials Billing Project. Study Titile: Genomic Markers for Patients with Cardiovascular Disease Project #[id number] PI: Radha Yepez MD Please call [phone] with study related questions GENOMICS CARDIO RESEARCH OTHER*[id number] 06/04/2009 06/13/2016 Overview: Renamed Per Clinical Trials Billing Project. Study Titile: Genomic Markers for Patients with Cardiovascular Disease Project #[id number] PI: Radha Yepez MD Please call [phone] with study related questions Benign neoplasm of [...] 30 Mcg, IM, 12 yrs and above ([employer]) 02/15/2022 H1N1 2009 Influenza, IM 05/10/2009 Pneumococcal [...] encounter Miscellaneous Notes * Telephone Encounter - Maxx Edwards RN [...] Info) Description 08/29/2023 10:30 AM EDT Imaging [facility] 2nd Floor Cardiology, [place] [address] [place] [address] 08/29/2023 2:30 PM EDT Imaging [facility] [place] [address] 09/13/2023 3:40 PM EDT Office Visit Neurology [facility] [place] [address] [place] [address] Shantel Zhou MD [address] [place] [address] 09/28/2023 12:45 PM EDT Office Visit Dermatology [facility] [place] [facility] [place] [address] Mitchell Mack MD [address] [place] [address] 10/02/2023 10:30 AM EDT Office Visit Cardiology, [facility] 132 [place] [address] Marcia Collins CRNP 132 [place] [address] 11/05/2023 1:00 PM EDT Office Visit [facility] [address] [place] [address] Kaz Robledo MD [address] [place] [address] 12/11/2023 8:00 AM EDT Imaging Vascular Lab, [facility] 2nd [facility] 132 [place] [address] 12/11/2023 9:00 AM EDT Imaging Vascular Lab, [facility] 2nd [facility] 132 [place] [address] 12/19/2023 8:30 AM EDT Office Visit Vascular Surgery, [facility] 132 [place] [address] Rancho Soler MD [address] [place], [place] [address] 02/21/2024 1:30 PM EDT [facility] [address] [place] [address] Shantel Mc PA-C [address] [place] [address] 02/28/2024 8:40 AM EDT Office Visit Neurology [facility] [place] [address] [place] [address] Darron Calvillo MD [address] [place] [address] 03/18/2024 3:00 PM EST Office Visit Cardiology, [facility] [address] [place] [address] Marcia Collins CRNP [address] [place] [address] Scheduled Orders Name Type Priority Associated Diagnoses [...] type documented in this encounter Care Teams Statement Request Clerk Relationship Specialty Start Date End Date Kaz Robledo MD [address] [place] [address] PCP - General Family Medicine 03/05/17 documented as of this encounter
--- OUTSIDE RECORDS SUMMARY | 2023-10-19 07:22 | External Medical Summary ---
Author Name Unknown Address Unknown Organization [id number]:[facility]ORATORY [facility] [place] [address] - [address] [place] [address] Laboratory Report Ordering Provider Test Date Status TATIANNA BAIG 08/24/2023 14:54:40 Final Observation Date Value Abnormality Reference (Units ) Status WBC, Total 08/24/2023 14:54:40 9.00 4.00-10.8 0 (K/uL) Final RBC 08/24/2023 14:54:40 4.58 4.50-5.25 (M/uL) Final Hemoglobin 08/24/2023 14:54:40 14.3 14.0-16.8 (g/dL) Final HCT 08/24/2023 14:54:40 42.3 40.0-48.4 (%) Final MCV 08/24/2023 14:54:40 92.4 82.0-99.5 (fL) Final MCH 08/24/2023 14:54:40 31.2 27.0-34.0 (pg) Final MCHC 08/24/2023 14:54:40 33.8 32.0-36.0 (g/dL) Final RDW 08/24/2023 14:54:40 12.8 11.5-15.5 (%) Final Platelets 08/24/2023 14:54:40 219 140-400 (K /uL) Final MPV 08/24/2023 14:54:40 10.3 6.6-11.1 ( fL) Final Performing Location [facility] [place] [address] - [address] [place] [address]
--- OUTSIDE RECORDS SUMMARY | 2023-10-19 07:22 | External Medical Summary ---
Author Name Unknown Address Unknown Organization [id number]:LABORATORY [facility] - [address] [place] [address] Laboratory Report Ordering Provider Test Date Status TATIANNA BAIG 08/24/2023 14:54:40 Final Observation Date Value Abnormality Reference (Units ) Status TSH 08/24/2023 14:54:40 1.04 0.27-4.20 (uIU/mL) Final Performing Location LABORATORY [facility] - [address] [place] [address]
--- OUTSIDE RECORDS SUMMARY | 2023-10-19 07:22 | External Medical Summary | Summary of Care ---
Author Name Unknown Organization [facility] Address [address] [place] [address] Phone [phone] Care Team Providers Care Forming Machine Upkeep Mechanic Helper Name Role Phone Kaz Robledo MD Primary Care Provider +1- [phone] Reason for Visit * Reason Onset Date Comments Medication Question 08/20/2023 Encounter Details Date Type Department Care Team (Late st Contact Info) Description 08/20/2023 Telephone Neurology [facility] [address] [place] [address] Services, Scheduling [address] [place] [address] Medication Question Allergies Active Allergy Reactions Criticality Noted Date Comments Atorvastatin Muscle pain 12/11/2016 Bee Stings 02/21/1999 Hives,intense itching,edema documented as of this encounter (statuses as of 08/22/2023) Medications Medication Sig Dispensed Refills Start Date [...] SolutionIndication s:Seborrheic dermatitis Apply to scalp daily August thru as needed for redness and flaking 60 mL 2 05/25/2023 Active Ketoconazole 2 % External Shampoo (Nizoral)Indicatio ns:Seborrheic dermatitis Apply to scalp 2-3 x's per week. 360 mL 5 05/25/2023 Active Isosorbide Mononitrate ER 30 MG Oral Tablet Extended Release 24 Hour (Imdur)Indications :Coronary artery disease involving [place] coronary artery of [place] heart without angina pectoris,Chronic coronary artery disease [...] 100,Chronic coronary artery disease,PAD (peripheral artery disease) ([facility]) INJECT 420 MG UNDER THE SKIN EVERY MONTH -- ADMINISTER OVER 5 MINUTES -- REMOVE FROM REFRIGERATOR 45 MINUTES PRIOR TO INJECTION 10.5 mL 3 08/13/2023 08/12/2024 Active Gabapentin 100 MG Oral Capsule (Neurontin) 1 tab at bedtime x 7 days then 1 tab twice daily x 7 days then 1 tab three times daily 90 Capsule 2 08/17/2023 Active documented as of this encounter (statuses as of 08/22/2023) Active Problems Problem Noted Date Diagnosed Date [...] as of this encounter (statuses as of 08/22/2023) Resolved Problems Problem Noted Date Diagnosed Date [...] 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 Other*[id number] 06/26/2011 12/08/2015 EXAMINATION OF PARTICIPANT I N CLINICAL TRIAL-Genomics 06/04/2009 08/20/2009 Overview: Renamed Per Clinical Trials Billing Project. Study Titile: Genomic Markers for Patients with Cardiovascular Disease Project #[id number] PI: Radha Yepez MD Please call [phone] with study related questions GENOMICS CARDIO RESEARCH OTHER*[id number] 06/04/2009 06/13/2016 Overview: Renamed Per Clinical Trials Billing Project. Study Titile: Genomic Markers for Patients with Cardiovascular Disease Project #[id number] PI: Radha Yepez MD Please call [phone] with study related questions Benign neoplasm of [...] as of this encounter (statuses as of 08/22/2023) Immunizations Name Administration Dates Next Due COVID-19 [...] encounter Miscellaneous Notes * Telephone Encounter - Tiffanie Walton LPN - 08/22/2023 11:06 AM EDT Spoke with patient Offered for him to come to [place] and he refused He refused a video Dr. Calvillo has no available appointments until November He would like to see another provider at [place] He could not tolerate the gabapentin Please schedule with another provider in [place] * Telephone Encounter - Ines Solitario, MED ASSIST - 08/20/2023 3:10 PM EDT Have him stop it. Lets set him up for a follow up appointment with Rajinder. Shantel Mc PA-C 08/20/2023 1:46 PM Pt was put on schedule with Dr Calvillo tomorrow. * Telephone Encounter - Stacy Epperson OSA - 08/20/2023 2:32 PM EDT [facility] * Telephone Encounter - Elsa Mason OSA - 08/20/2023 8:59 AM EDT Who is calling: Landen (Patient) Provider patient is established with: Winnie What is the concern or issue they are having: Patient stated he took one dose of prescription. Patient stated he is experiencing brain fog; fatigue; anxious. Patient stated medication is not working and is requesting recommendations. Pts phone number for nurse to call back: [phone] documented in this encounter Plan of Treatment Upcoming Encounters Date Type Department Care Team (Late st Contact Info) Description 08/24/2023 2:00 PM EDT Office Visit Cardiology, [facility] [place] [address] Marcia Collins CRNP 132 [facility] [place] [address] 08/29/2023 10:30 AM EDT Imaging [facility] [address]nd [address] [place] [address] 08/29/2023 2:30 PM EDT Imaging [facility] 2nd [facility], [address] [place] [address] 09/28/2023 12:45 PM EDT Office [facility] [place] [address] Mitchell Mack MD 200 [facility] [place] [address] 11/05/2023 1:00 PM EDT Office Visit [facility] [address] [place] [facility] [place] [place] [address] Kaz Robledo MD [address] [place] [address] 12/11/2023 8:00 AM EDT Imaging Vascular Lab, [address] 132 [place] [address] 12/11/2023 9:00 AM EDT Imaging Vascular Lab, [address] [place] [address] 12/19/2023 8:30 AM EDT Office Visit Vascular Surgery, [facility] [address] [place] [address] Rancho Soler MD [address] [place] [address] 02/21/2024 1:30 PM EDT Office Visit Neurology [facility] [address] [place] [address] Shantel Mc PA-C [address] [place] [address] 02/28/2024 8:40 AM EDT Office Visit Neurology [facility] [address] [place] [address] Darron Calvillo MD [address] [place] [address] 03/18/2024 3:00 PM EST Office Visit Cardiology, [facility] [address] [place] [address] Marcia Collins CRNP 132 [facility] [place] [address] Scheduled Procedures Name Priority Associated Diagnoses Date/Ti me COLONOSCOPY FLEXIBLE PROXIMAL DIAGNOSTIC Recall History of colon polyps Health Maintenance Due Date Last Done Comments Alpha-1 Antitrypsin 1963 COLONOSCOPY-ANNUAL AGES 18-100 03/20/2020 03/20/2019, 03/20/2019, 10/15/2017, Additional history exists COVID-19 Vaccine ( season) 2023 02/15/2022, 10/06/2021, 03/02/2021, Additional history exists *COPD SEVERITY VERIFIED BY PFT 05/28/2023 O2 ASSESSMENT COMPLETED IN PAST YEAR FOR COPD 07/15/2024 07/16/2023 GFR 07/16/2024 07/17/2023, 09/04, 09/05/2022, Additional history exists HbA1c 07/16/2024 07/17/2023, 05/2022, 08/23/2021, Additional history exists Albumin/Creatinine Ratio 07/17/2026 07/18/2023, 09/05 DTaP,Tdap,and Td [...] filedocumented as of this encounter Care Teams Forming Machine Upkeep Mechanic Helper Relationship Specialty Start Date End Date Kaz Robledo MD [address] [place] [address] PCP - General Family Medicine 03/05/17 documented as of this encounter
--- OUTSIDE RECORDS SUMMARY | 2023-10-19 07:22 | External Medical Summary | Summary of Care ---
Author Name Unknown Organization [facility] Address [address] [place] [address] Phone [phone] Care Team Providers Care Pick Pulling Machine Operator Name Role Phone Kaz Robledo MD Primary Care Provider +1- [phone] Reason for Visit * Reason Onset Date Comments Appointment 08/17/2023 Nuclear Med Encounter Details Date Type Department Care Team (Late st Contact Info) Description 08/17/2023 Telephone Neurology [facility] [place] [address] [place] [address] Shantel Mc PA-C [address] [place] [address] Appointment (Nuclear Med) Allergies Active Allergy Reactions Criticality Noted Date Comments Atorvastatin Muscle pain 12/11/2016 Bee Stings 02/21/1999 Hives,intense itching,edema documented as of this encounter (statuses as of 08/20/2023) Medications Medication Sig Dispensed Refills Start Date [...] 24 Hour (Imdur)Indications :Coronary artery disease involving ute coronary artery of ute heart without angina pectoris,Chronic coronary artery disease [...] 100,Chronic coronary artery disease,PAD (peripheral artery disease) ([facility]) INJECT 420 MG UNDER THE SKIN EVERY [...] as of this encounter (statuses as of 08/20/2023) Active Problems Problem Noted Date Diagnosed Date [...] as of this encounter (statuses as of 08/20/2023) Resolved Problems Problem Noted Date Diagnosed Date [...] disorder 02/15/2012 09/03/[address] [facility] Other*[id number] 06/26/2011 12/08/2015 EXAMINATION OF PARTICIPANT I N CLINICAL TRIAL-Genomics 06/04/2009 08/20/2009 Overview: Renamed Per Clinical Trials Billing Project. Study Titile: Genomic Markers for Patients with Cardiovascular Disease Project #[id number] PI: Radha Yepez MD Please call [phone] with study related questions GENOMICS CARDIO RESEARCH OTHER*[id number] 06/04/2009 06/13/2016 Overview: Renamed Per Clinical Trials Billing Project. Study Titile: Genomic Markers for Patients with Cardiovascular Disease Project #[id number] PI: Radha Yepez MD Please call [phone] with study related questions Benign neoplasm of [...] as of this encounter (statuses as of 08/20/2023) Immunizations Name Administration Dates Next Due COVID-19 [...] encounter Miscellaneous Notes * Telephone Encounter - Kimmie Ahuja OSA - 08/20/2023 1:49 PM EDT Triage sent * Telephone Encounter - Tanja Small OSA - 08/17/2023 1:35 PM EDT Please call pt to schedule a datscan documented in this encounter Plan of Treatment Upcoming Encounters Date Type Department Care Team (Late st Contact Info) Description 09/28/2023 12:45 PM EDT Office Visit [facility]atology [facility] [address] [place], [place] [address] Mitchell Mack MD [address] [place] [address] 11/05/2023 1:00 PM EDT Office Visit [address] [place] [address] Kaz Robledo MD [address] [place] [address] 12/11/2023 8:00 AM EDT Imaging Vascular Lab, [address] [place] [address] 12/11/2023 9:00 AM EDT Imaging Vascular Lab, [address] [place] [address] 12/19/2023 8:30 AM EDT [facility] [address] [place] [address] Rancho Soler MD [address] [place] [address] 02/21/2024 1:30 PM EDT Office Visit Neurology [facility] [address] [place] [address] Shantel Mc PA-C 200 [place] [address] 03/18/2024 3:00 PM EST Office Visit [facility] [address] [place] [address] Marcia Collins CRNP [address] [place] [address] Scheduled Procedures Name Priority Associated Diagnoses Date/Ti [...] filedocumented as of this encounter Care Teams Pick Pulling Machine Operator Relationship Specialty Start Date End Date Kaz Robledo MD [address] [place] [address] PCP - General Family Medicine 03/05/17 documented as of this encounter
--- OUTSIDE RECORDS SUMMARY | 2023-10-19 07:22 | External Medical Summary | Summary of Care ---
Author Name Unknown Organization [facility] Address [address] [place] [address] Phone [phone] Care Team Providers Care Chancery Clerk Name Role Phone Kaz Robledo MD Primary Care Provider +1- [phone] Reason for Visit * Reason Onset Date Comments Other 08/24/2023 Encounter Details Date Type Department Care Team (Late st Contact Info) Description 08/24/2023 Telephone Cardiology, [facility] [address] [place] [address] Marcia Collins CRNP [address] [place] [address] Other (/) Allergies Active Allergy Reactions Criticality Noted Date Comments Atorvastatin Muscle pain 12/11/2016 Bee Stings 02/21/1999 Hives,intense itching,edema documented as of this encounter (statuses as of 08/24/2023) Medications Medication Sig Dispensed Refills Start Date [...] 24 Hour (Imdur)Indications :Coronary artery disease involving [place] coronary artery of [place] heart without angina pectoris,Chronic coronary artery disease [...] 100,Chronic coronary artery disease,PAD (peripheral artery disease) ([facility]) INJECT 420 MG UNDER THE SKIN EVERY [...] as of this encounter (statuses as of 08/24/2023) Active Problems Problem Noted Date Diagnosed Date [...] as of this encounter (statuses as of 08/24/2023) Resolved Problems Problem Noted Date Diagnosed Date [...] disorder 02/15/2012 09/03/2017 Genetic Sleep Disorder Resea [facility] Other*[id number] 06/26/2011 12/08/2015 EXAMINATION OF PARTICIPANT I N CLINICAL TRIAL-Genomics 06/04/2009 08/20/2009 Overview: Renamed Per Clinical Trials Billing Project. Study Titile: Genomic Markers for Patients with Cardiovascular Disease Project #[id number] PI: Radha Yepez MD Please call [phone] with study related questions GENOMICS CARDIO RESEARCH OTHER*[id number] 06/04/2009 06/13/2016 Overview: Renamed Per Clinical Trials Billing Project. Study Titile: Genomic Markers for Patients with Cardiovascular Disease Project #[id number] PI: Radha Yepez MD Please call [phone] with study related questions Benign neoplasm of [...] as of this encounter (statuses as of 08/24/2023) Immunizations Name Administration Dates Next Due COVID-19 [...] encounter Miscellaneous Notes * Telephone Encounter - Tonya Dougherty RN - 08/24/2023 9:07 AM EDT Spoke with patient via warm transfer. Reporting increase in chest pain/pressure since taking gabapentin x 1 dose last Sunday evening. Decrease activity due to symptoms. Reports chest pain/pressure waking from sleep. Utilizing Nitro daily; max amount taken at 1 time 2 tablets. Aids in resolving symptoms. Denies any recent upper respiratory infections or fever. Assisted in placing back on schedule for evaluation today. * Telephone Encounter - Shelia Valencia CMA - 08/24/2023 8:38 AM EDT LMTRC, my g sent. * Telephone Encounter - Marcia Collins CRNP - 08/24/2023 5:38 AM EDT Patient was placed on my schedule for an acute. I believe HENRIETTA scheduled this in error. Patient had called in and reported that he was having a "reaction" to the Gabapentin he was prescribed, creatinga brain fog. The communication clearly states that he was to be seen by Neurology (who prescribed it), but they had cancelled his appointment and said it need to be reschedueld. He shouldn't be seeing us today for "brainfog due to starting Gabapentin" That needs to be addressed by Neurology. Marcia Roberts documented in this encounter Plan of Treatment Upcoming Encounters Date Type Department Care Team (Late st Contact Info) Description 08/24/2023 2:00 PM EDT Office Visit Cardiology, [facility] [address] Marcia Collins CRNP 132 [facility] [place] [address] 08/29/2023 10:30 AM EDT Imaging [facility] 2nd Floor Cardiology, [place] 132 [facility] [place] [address] 08/29/2023 2:30 PM EDT Imaging [facility] 2nd Floor [facility] [address] 09/13/2023 3:40 PM EDT Office Visit Neurology [facility] [address] [place] [address] Shantel Zhou MD [address] [facility] [place] [address] 09/28/2023 12:45 PM EDT Office Visit Dermatology [facility] [address] [facility] [place] [address] Mitchell Mack MD [address] [facility] [place] [address] 11/05/2023 1:00 PM EDT Office Visit [address] [phone] Kaz Robledo MD [address] [place] [address] 12/11/2023 8:00 AM EDT Imaging Vascular Lab, [address] 132 [place] [address] 12/11/2023 9:00 AM EDT Imaging Vascular Lab, [address] 132 [place] [address] 12/19/2023 8:30 AM EDT Office Visit Vascular Surgery, [facility] 132 [place] [address] Rancho Soler MD [address] [place] [address] 02/21/2024 1:30 PM EDT Office Visit Neurology [facility] [address] [place] [address] Shantel Mc PA-C [address] [place] [address] 02/28/2024 8:40 AM EDT Office Visit Neurology [facility] [address] [place] [address] Darron Calvillo MD [address] [place], [place] [id number] 03/18/2024 3:00 PM EST Office Visit Cardiology, [facility] [address] [place] [address] Marcia Collins CRNP 132 [facility] [address] Scheduled Procedures Name Priority Associated Diagnoses Date/Ti [...] filedocumented as of this encounter Care Teams Chancery Clerk Relationship Specialty Start Date End Date Kaz Robledo MD [address] [place] [address] PCP - General Family Medicine 03/05/17 documented as of this encounter
--- OUTSIDE RECORDS SUMMARY | 2023-10-19 07:22 | External Medical Summary | Summary of Care ---
Author Name Unknown Organization [facility] Address [address] [place] [address] Phone [phone] Care Team Providers Care Profiler Hand Name Role Phone Kaz Robledo MD Primary Care Provider +1- [phone] Reason for Visit * Reason Onset Date Comments Appointment 08/21/2023 [place] / Needs urgent appointment since todays appt was cancelled Encounter Details Date Type Department Care Team (Late st Contact Info) Description 08/21/2023 Telephone Access Center, [facility] [address] [facility] *DO NOT REMOVE THIS DEPARTMENT* [place] [address] Services, Scheduling [address] [place] [address] Appointment ([place] / Needs urgent appoin... Allergies Active Allergy Reactions Criticality Noted Date [...] 24 Hour (Imdur)Indications :Coronary artery disease involving [place] coronary artery of [place] heart without angina pectoris,Chronic coronary artery disease [...] 100,Chronic coronary artery disease,PAD (peripheral artery disease) ([facility]) INJECT 420 MG UNDER THE SKIN [...] Resea [facility] Other*[id number] 06/26/2011 12/08/2015 EXAMINATION OF PARTICIPANT I N CLINICAL TRIAL-Genomics 06/04/2009 08/20/2009 Overview: Renamed Per Clinical Trials Billing Project. Study Titile: Genomic Markers for Patients with Cardiovascular Disease Project #[id number] PI: Radha Yepez MD Please call [phone] with study related questions GENOMICS CARDIO RESEARCH OTHER*[id number] 06/04/2009 06/13/2016 Overview: Renamed Per Clinical Trials Billing Project. Study Titile: Genomic Markers for Patients with Cardiovascular Disease Project #[id number] PI: Radha Yepez MD Please call [phone] with study related questions Benign neoplasm of [...] Encounter - Tiffanie Walton LPN - 08/22/2023 10:04 AM EDT Left a voicemail and sent [facility]. * Telephone Encounter - Larry Hanna OSA - 08/21/2023 7:22 AM EDT Neuroscience Phone Call Form- Clinic has 24-48 hours to respond to caller If caller is calling back before that timeframe- There is no need to send another message to the pool, update current TE [facility] Neurology Pool- All messages go through the [facility] Neuro Architecture Professor- [id number] Neurology Pool Numbers- [place] patients - follow normal process Ops req [facility] Neurology ([place])- [id number] Ops req [place] Neurology ([place]- [facility] and [facility] Only)- [id number] Neurosurgery Pool Numbers- [place] patients- follow normal process Ops req Neurosurgery [facility] ([place])- [id number] Ops req Neurosurgery [facility] ([place] Only) [id number] Requested Information from caller: Who is calling patient Provider patient is established with: Dr Calvillo What is the concern or issue they are having: Pt appt for today 08/20 was canceled pt needs to be seen soon due to a reaction to medication. Medication was stop but has to be seen by Dr Calvillo How long has the issue been going on: N/A Any additional details to add: no Pts phone number for nurse to call back: [phone] If forms need to be faxed- Please provide fax number: n/a Please make sure you verify pharmacy for anything medication related. Form to be used for established patients only (not new patients) documented in this encounter Plan of Treatment Upcoming Encounters Date Type Department Care Team (Late st Contact Info) Description 08/24/2023 2:00 PM EDT Office Visit Cardiology, [facility] 132 [facility] [place] [address] Marcia Collins CRNP 132 [facility] [place] [address] 08/29/2023 10:30 AM EDT Imaging [facility] 2nd Floor [facility] [place] 132 [facility] [place] [address] 08/29/2023 2:30 PM EDT Imaging [facility] 2nd Floor [facility] [place] 132 [facility] [place] [address] 09/28/2023 12:45 PM EDT Office Visit Dermatology [facility] [address] [place] [address] Mitchell Mack MD [address] [place] [address] 11/05/2023 1:00 PM EDT Office Visit [facility] [address] [place] [phone] Kaz Robledo MD [address] [place] [address] 12/11/2023 8:00 AM EDT Imaging Vascular Lab, [facility] [address] [facility] [place] 132 [place] [address] 12/11/2023 9:00 AM EDT Imaging Vascular Lab, [facility] [address] [facility], [address] [place] [address] 12/19/2023 8:30 AM EDT Office Visit Vascular Surgery, [facility] 132 [place] [address] Rancho Soler MD [address] [place] [address] 02/21/2024 1:30 PM EDT Office Visit Neurology [facility] [address] [place] [address] Shantel Mc PA-C 200 [place] [address] 02/28/2024 8:40 AM EDT Office Visit Neurology [facility] [address] [place] [address] Darron Calvillo MD [address] [place] [address] 03/18/2024 3:00 PM EST Office Visit Cardiology, [facility] [address] [place] [address] Marcia Collins CRNP [address] [facility] [place] [address] Scheduled Procedures Name Priority Associated Diagnoses Date/Ti me COLONOSCOPY FLEXIBLE PROXIMAL DIAGNOSTIC Recall History of colon polyps Health Maintenance Due Date Last Done Comments Alpha-1 Antitrypsin 1963 COLONOSCOPY-ANNUAL AGES 18-100 03/20/2020 03/20/2019, 03/20/2019, 10/15/2017, Additional history exists COVID-19 Vaccine (6 - 2023- season) 2023 02/15/2022, 10/06/2021, 03/02/2021, Additional history exists *COPD SEVERITY VERIFIED BY PFT 05/28/2023 O2 ASSESSMENT COMPLETED IN PAST YEAR FOR COPD 07/15/2024 07/16/2023 GFR 07/16/2024 07/17/2023, 09/04, 09/05/2022, Additional history exists HbA1c 07/16/2024 07/17/2023, 030 05/2022, 08/23/2021, Additional history exists Albumin/Creatinine Ratio [...] filedocumented as of this encounter Care Teams Profiler Hand Relationship Specialty Start Date End Date Kaz Robledo MD [address] [place] [address] PCP - General Family Medicine 03/05/17 documented as of this encounter
--- OUTSIDE RECORDS SUMMARY | 2023-10-19 07:22 | External Medical Summary ---
Author Name Unknown Address Unknown Organization [id number]:[facility] [place] [address] [place] [address] Laboratory Report Ordering Provider Test Date Status TATIANNA BAIG 08/24/2023 14:54:40 Final Observation Date Value Abnormality Reference (Units ) Status BUN 08/24/2023 14:54:40 22 Above high normal 6-20 (mg/dL) Final Creatinine 08/24/2023 14:54:40 1.1 0.6-1.2 (mg/dL) Final Glomerular filtration rate/1.73 sq M.predicted [Volume Rate/Area] in Serum, Plasma or Blood by Creatinine-based formula (CKD-EPI) 08/24/2023 14:54:40 68 >=60 (mL/min) Final eGFR is calculated based on the CKD-EPI 2020 equation Sodium 08/24/2023 14:54:40 140 135-146 (m mol/L) Final Potassium 08/24/2023 14:54:40 4.6 3.5-5.1 (m mol/L) Final Cl 08/24/2023 14:54:40 103 98-107 (mm ol/L) Final CO2 08/24/2023 14:54:40 28 22-32 (mmo l/L) Final Anion gap 08/24/2023 14:54:40 9 7-15 (mmol /L) Final Glucose 08/24/2023 14:54:40 96 70-120 (mg /dL) Final Calcium 08/24/2023 14:54:40 9.8 8.4-10.2 ( mg/dL) Final Performing Location [facility] [place] [address] [place] [address]
--- OUTSIDE RECORDS SUMMARY | 2023-10-19 07:22 | External Medical Summary | Summary of Care ---
Author Name Unknown Organization [facility] Address [address] [place] [address] Phone [phone] Care Team Providers Care Loose Hand Packer Name Role Phone Kaz Robledo MD Primary Care Provider +1- [phone] Reason for Visit * Reason Onset Date Comments Medication Question 08/20/2023 Encounter Details Date Type Department Care Team (Late st Contact Info) Description 08/20/2023 Telephone Neurology [facility] [address] [place] [address] Services, Scheduling [address] [place] [address] Medication Question Allergies Active Allergy Reactions Criticality [...] 24 Hour (Imdur)Indications :Coronary artery disease involving [place] coronary artery of [place] heart without angina pectoris,Chronic coronary artery disease [...] 100,Chronic coronary artery disease,PAD (peripheral artery disease) ([facility]) INJECT 420 MG UNDER THE SKIN [...] disorder 02/15/2012 09/03/2017 Genetic Sleep Disorder Resea [facility] Other*[id number] 06/26/2011 12/08/2015 EXAMINATION OF PARTICIPANT I N CLINICAL TRIAL-Genomics 06/04/2009 08/20/2009 Overview: Renamed Per Clinical Trials Billing Project. Study Titile: Genomic Markers for Patients with Cardiovascular Disease Project #[id number] PI: Radha Yepez MD Please call [phone] with study related questions GENOMICS CARDIO RESEARCH OTHER*[id number] 06/04/2009 06/13/2016 Overview: Renamed Per Clinical Trials Billing Project. Study Titile: Genomic Markers for Patients with Cardiovascular Disease Project #[id number] PI: Radha eYpez MD Please call [phone] with study related questions Benign neoplasm of [...] encounter Miscellaneous Notes * Telephone Encounter - Tanja Small OSA - 08/22/2023 2:49 PM EDT scheduled * Telephone Encounter - Tanja Small OSA - 08/22/2023 11:54 AM EDT KK any suggestions? * Telephone Encounter - Tiffanie Walton LPN - 08/22/2023 11:06 AM EDT Spoke with patient Offered for him to come to [place] and he refused He refused a video Dr. Calvillo has no available appointments until November He would like to see another provider at [place] He could not tolerate the gabapentin Please schedule with another provider in [place] * Telephone Encounter - Ines Solitario, MED ASSIST - 08/20/2023 3:10 PM EDT Have him stop it. Lets set him up for a follow up appointment with Rajinder. Shantel Mc PA-C 08/20/2023 1:46 PM Pt was put on schedule with Dr Calvillo tomorrow. * Telephone Encounter - Stacy Epperson OSA - 08/20/2023 2:32 PM EDT [facility] * Telephone Encounter - Elsa Mason OSA [...] phone number for nurse to call back: [phone] documented in this encounter Plan of Treatment Upcoming Encounters Date Type Department Care Team (Late st Contact Info) Description 08/24/2023 2:00 PM EDT Office Visit Cardiology, [facility] [address] [place] [address] Marcia Collins CRNP [address] [place] [address] 08/29/2023 10:30 AM EDT Imaging [facility] 2nd Floor Cardiology, [place] [address] [place] [address] 08/29/2023 2:30 PM EDT Imaging [facility] 2nd Floor Cardiology, [place] [address] [place] [address] 09/13/2023 3:40 PM EDT Office [facility] [address] [place] [address] Shantel Zhou MD [address] [place] [address] 09/28/2023 12:45 PM EDT Office Visit Dermatology [facility] [address] [place] [address] Mitchell Mack MD [address] [place] [address] 11/05/2023 1:00 PM EDT Office Visit [facility] [address] [place] [phone] Kaz Robledo MD [address] [place] [address] 12/11/2023 8:00 AM EDT Imaging Vascular Lab, [address] 132 [place] [address] 12/11/2023 9:00 AM EDT Imaging Vascular Lab, [address] [place] [address] 12/19/2023 8:30 AM EDT Office Visit Vascular Surgery, [facility] 132 [place] [address] Rancho Soler MD [address] [place] [address] 02/21/2024 1:30 PM EDT Office Visit Neurology [facility] [address] [place] [address] Shantel Mc PA-C [address] [place] [address] 02/28/2024 8:40 AM EDT Office Visit Neurology [facility] [address] [place] [address] Darron Calvillo MD [address] [facility], [place] [address] 03/18/2024 3:00 PM EST Office Visit Cardiology, [facility] [address] [place] [address] Marcia Collins CRNP [address] [place] [address] Scheduled Procedures Name Priority Associated Diagnoses Date/Ti [...] filedocumented as of this encounter Care Teams Loose Hand Packer Relationship Specialty Start Date End Date Kaz Robledo MD [address] [place] [address] PCP - General Family Medicine 03/05/17 documented as of this encounter
--- OUTSIDE RECORDS SUMMARY | 2023-10-19 07:22 | External Medical Summary ---
Author Name Unknown Address Unknown Organization K01:[facility] - [address] [place] [address] [place] [address] Laboratory Report Ordering Provider Test Date Status JOVANNITATIANNA 08/24/2023 14:54:40 Final Rheumatoid factor at a level above 50 [...] definitively correlate with clinical severity of disease. Observation Date Value Abnormality Reference (Units ) Status Fibrin D-dimer FEU [Mass/volume] in Platelet poor plasma by Immunoassay 08/24/2023 14:54:40 0.81 Above high normal <0.50 (ug/mL FEU) Final Performing Location [facility] [facility] - [facility] [place] [address]
--- OUTSIDE RECORDS SUMMARY | 2023-10-19 07:22 | External Medical Summary | Summary of Care ---
Author Name Unknown Organization [facility] Address [address] [place] [address] Phone [phone] Care Team Providers Care Leadlighter Name Role Phone Kaz Robledo MD Primary Care Provider +1- [phone] Reason for Visit * Reason Comments Outpatient Testing Encounter Details Date Type Department Care Team (Late st Contact Info) Description 08/24/2023 3:00 PM EDT Laboratory Laboratory, [facility] [address] [facility] [phone] [facility] [address] [place] [address] New onset atrial flutter (HCC); Chest pain, unspecified type Allergies Active Allergy Reactions Criticality Noted Date [...] 24 Hour (Imdur)Indications :Coronary artery disease involving unga coronary artery of unga heart without angina pectoris,Chronic coronary artery disease [...] disorder 02/15/2012 09/03/2017 Genetic Sleep Disorder Resea [facility] Other*[id number] 06/26/2011 12/08/2015 EXAMINATION OF PARTICIPANT I N CLINICAL TRIAL-Genomics 06/04/2009 08/20/2009 Overview: Renamed Per Clinical Trials Billing Project. Study Titile: Genomic Markers for Patients with Cardiovascular Disease Project #[id number] PI: Radha Yepez MD Please call [phone] with study related questions GENOMICS CARDIO RESEARCH OTHER*[id number] 06/04/2009 06/13/2016 Overview: Renamed Per Clinical Trials Billing Project. Study Titile: Genomic Markers for Patients with Cardiovascular Disease Project #[id number] PI: Radha Yepez MD Please call [phone] with study related questions Benign neoplasm of [...] on file documented as of this encounter Plan of Treatment Upcoming Encounters Date Type Department Care Team (Late st Contact Info) Description 08/29/2023 10:30 AM EDT Imaging [facility] 2nd Floor Cardiology, [place] [address] [place] [address] 08/29/2023 2:30 PM EDT Imaging [facility] 2nd Floor Cardiology, [place] [address] 09/13/2023 3:40 PM EDT Office Visit Neurology Asael Marquez [place] [address] [place] [address] Shantel Zhou MD [address] [place] [address] 09/28/2023 12:45 PM EDT Office Visit Dermatology [facility] [address] [place] [address] Mitchell Mack MD [address] [place] [address] 10/02/2023 10:30 AM EDT Office Visit Cardiology, [facility] [address] [place] [address] Marcia Collins CRNP [address] [place] [place] [address] 11/05/2023 1:00 PM EDT Office Visit [place] [address] [place] [id number] Kaz Robledo MD [address] [place] [address] 12/11/2023 8:00 AM EDT Imaging Vascular Lab, [address] [facility] [address] 12/11/2023 9:00 AM EDT Imaging Vascular Lab, [address] [place] [address] 12/19/2023 8:30 AM EDT Office Visit Vascular Surgery, [facility] [address] [place] [address] Rancho Soler MD [address] [place] [address] 02/21/2024 1:30 PM EDT Office Visit Neurology [facility] [address] [place] [address] Shantel Mc PA-C [address] [place] [address] 02/28/2024 8:40 AM EDT Office Visit [facility] [place] [address] [place] [address] Darron Calvillo MD [address] [facility] [place] [address] 03/18/2024 3:00 PM EST Office Visit Cardiology, [facility] [address] [facility] [address] Marcia Collins CRNP [address] [place] [address] Pending Results Name Type Priority Associated Diagnoses Date /Time BASIC METABOLIC PANEL Lab Routine New onset atrial flutter (HCC) 08/24/2023 2:54 PM EDT MAGNESIUM Lab Routine New onset atrial flutter (HCC) 08/24/2023 2:54 PM EDT TSH Lab Routine New onset atrial flutter (HCC) 08/24/2023 2:54 PM EDT D-DIMER Lab Routine New onset atrial flutter (HCC) Chest pain, unspecified type 08/24/2023 2:54 PM EDT Scheduled Procedures Name Priority Associated Diagnoses Date/Ti me COLONOSCOPY FLEXIBLE PROXIMAL DIAGNOSTIC Recall History of colon polyps Health Maintenance Due Date Last Done Comments Alpha-1 Antitrypsin 1963 COLONOSCOPY-ANNUAL AGES 18-100 03/20/2020 03/20/2019, 03/20/2019, 10/15/2017, Additional history exists COVID-19 Vaccine ( season) 2023 02/15/2022, 10/06/2021, 03/02/2021, Additional history exists *COPD SEVERITY VERIFIED BY PFT 05/28/2023 GFR 07/16/2024 07/17/2023, 05/1 10/2022, 09/05/2022, Additional history exists HbA1c 07/16/2024 07/17/2023, 03/0 05/2022, 08/23/2021, Additional history exists O2 ASSESSMENT COMPLETED IN [...] Procedure Name Priority Date/Time Associated Diagnosis Comments CBC Routine 08/24/2023 2:54 PM EDT New onset atrial flutter (HCC) documented in this encounter Results * CBC (08/24/2023 2:54 PM EDT) WBC [...] 36.0 g/dL 08/24/2023 3:05 PM EDT LAB[facility]ORY [facility] [place] 57-10 RDW 12.8 11.5 - 15.5 % 08/24/2023 3:05 PM EDT LABORATORY [facility] [place] 57-10 PLT 219 140 - 400 K/uL 08/24/2023 3:05 PM EDT LAB[facility]ORY [facility] [place] 57-10 MPV 10.3 6.6 - 11.1 fL 08/24/2023 3:05 PM EDT [facility] Blood Venous blood specimen / Unknown Venipuncture / Unknown 08/24/2023 2:54 PM EDT 08/24/2023 2:54 PM EDT Marcia DE [facility] LAB BLOOD ORDER [facility] [place] 57-10 [facility] [address] documented in this encounter Visit Diagnoses Diagnosis New onset atrial flutter (HCC) Atrial flutter Chest pain, unspecified type documented in this encounter Care Teams Leadlighter Relationship Specialty Start Date End Date Kaz oRbledo MD [address] [place] [facility] [place] [address] PCP - General Family Medicine 03/05/17 documented as of this encounter
--- OUTSIDE RECORDS SUMMARY | 2023-10-19 07:22 | External Medical Summary | Summary of Care ---
Author Name Unknown Organization [facility] Address [address] [place] [address] Phone [phone] Care Team Providers Care Executive Director Contract Shop Name Role Phone Kaz Robledo MD Primary Care Provider +1- [phone] Reason for Visit * Reason Onset Date Comments Medication Question 08/20/2023 Encounter Details Date Type Department Care Team (Late st Contact Info) Description 08/20/2023 Telephone Neurology [facility] [address] [place] [address] Services, Scheduling [address] [place] [address] Medication Question Allergies Active Allergy Reactions Criticality [...] 24 Hour (Imdur)Indications :Coronary artery disease involving [place] coronary artery of [place] heart without angina pectoris,Chronic coronary artery disease [...] coronary artery disease,PAD (peripheral artery disease) ([facility]) INJECT 420 MG UNDER THE SKIN EVERY [...] 09/03/2017 Genetic Sleep Disorder Resea [facility] Other*[id number] 06/26/2011 12/08/2015 EXAMINATION OF PARTICIPANT I N CLINICAL TRIAL-Genomics 06/04/2009 08/20/2009 Overview: Renamed Per Clinical Trials Billing Project. Study Titile: Genomic Markers for Patients with Cardiovascular Disease Project #[id number] PI: Radha Yepez MD Please call [phone] with study related questions GENOMICS CARDIO RESEARCH OTHER*[id number] 06/04/2009 06/13/2016 Overview: Renamed Per Clinical Trials Billing Project. Study Titile: Genomic Markers for Patients with Cardiovascular Disease Project #[id number] PI: Radha Yepez MD Please call [phone] with study related questions Benign neoplasm of [...] patient Offered for him to come to [place] and he refused He refused a video Dr. Calvillo has no available appointments until November He would like to see another provider at [place] He could not tolerate the gabapentin Please schedule with another provider in [place] * Telephone Encounter - Ines Solitario MED ASSIST - 08/20/2023 3:10 PM EDT Have him stop it. Lets set him up for a follow up appointment with Rajinder. Shantel Mc PA-C 08/20/2023 1:46 PM Pt was put on schedule with Dr Calvillo tomorrow. * Telephone Encounter - Stacy Epperson OSA - 08/20/2023 2:32 PM EDT Transfer call to [facility] _Neurology * Telephone Encounter - Elsa Mason OSA [...] phone number for nurse to call back: [phone] documented in this encounter Plan of Treatment Upcoming Encounters Date Type Department Care Team (Late st Contact Info) Description 08/24/2023 2:00 PM EDT Office Visit Cardiology, [facility] [address] [place] [address] Marcia Collins CRNP [address] [place] [address] 08/29/2023 10:30 AM EDT Imaging [facility] [address] [place] [address] 08/29/2023 2:30 PM EDT Imaging [facility] [address] [place] [place] [address] 09/28/2023 12:45 PM EDT Office Visit Dermatology Asael Mar[facility] [place] [address] [place] [address] Mitchell Mack MD [address] [place] [address] 11/05/2023 1:00 PM EDT Office Visit [facility] [address] [place] [address] Kaz Robledo MD [address] [place] [address] 12/11/2023 8:00 AM EDT Imaging Vascular Lab, [facility] 2nd [facility] [place] [address] [place] [address] 12/11/2023 9:00 AM EDT Imaging Vascular Lab, [facility] 2nd [facility] [place] [address] [place] [address] 12/19/2023 8:30 AM EDT Office Visit Vascular Surgery, [facility] [address] [place] [address] Rancho Soler MD [address] [place] [address] 02/21/2024 1:30 PM EDT Office Visit Neurology [facility] [address] [place] [address] Shantel Mc PA-C [address] [place] [address] 02/28/2024 8:40 AM EDT Office Visit Neurology [facility] [address] [place] [address] Darron Calvillo MD [address] [place] [address] 03/18/2024 3:00 PM EST Office Visit Cardiology, [facility] [address] [place] [address] Marcia Collins CRNP 132 [place] [address] Scheduled Procedures Name Priority Associated Diagnoses Date/Ti [...] filedocumented as of this encounter Care Teams Executive Director Contract Shop Relationship Specialty Start Date End Date Kaz Robledo MD [address] [place] [address] PCP - General Family Medicine 03/05/17 documented as of this encounter
--- OUTSIDE RECORDS SUMMARY | 2023-10-19 07:22 | External Medical Summary ---
Author Name Unknown Address Unknown Organization K01:[facility] [address] [place] [address] Laboratory Report Ordering Provider Test Date Status TATIANNA BAIG 08/24/2023 14:54:40 Final Observation Date Value Abnormality Reference (Units ) Status Magnesium 08/24/2023 14:54:40 2.3 1.5-2.6 (m g/dL) Final Performing Location [facility] [address] [place] [address]
--- OUTSIDE RECORDS SUMMARY | 2023-10-19 07:22 | External Medical Summary | Summary of Care ---
Author Name Unknown Organization [facility] Address [address] [place] [address] Phone [phone] Care Team Providers Care Software Client Architect Name Role Phone Kaz Robledo MD Primary Care Provider +1- [phone] Reason for Visit * Reason Onset Date Comments Appointment 08/17/2023 Nuclear Med Encounter Details Date Type Department Care Team (Late st Contact Info) Description 08/17/2023 Telephone Neurology [facility] [place] [address] [place] [address] Shantel Mc PA-C [address] [place] [address] Appointment (Nuclear Med) Allergies Active Allergy Reactions [...] artery disease,PAD (peripheral artery disease) ([facility]) INJECT 420 MG UNDER THE SKIN EVERY [...] disorder 02/15/2012 09/03/2017 Genetic Sleep Disorder Resea [facility] Other*[id number] 06/26/2011 12/08/2015 EXAMINATION OF PARTICIPANT I N CLINICAL TRIAL-Genomics 06/04/2009 08/20/2009 Overview: Renamed Per Clinical Trials Billing Project. Study Titile: Genomic Markers for Patients with Cardiovascular Disease Project #[id number] PI: Radha Yepez MD Please call [phone] with study related questions GENOMICS CARDIO RESEARCH OTHER*[id number] 06/04/2009 06/13/2016 Overview: Renamed Per Clinical Trials Billing Project. Study Titile: Genomic Markers for Patients with Cardiovascular Disease Project #[id number] PI: Radha Yepez MD Please call [phone] with study related questions Benign neoplasm of [...] Encounter - Kimmie Ahuja OSA - 08/20/2023 4:14 PM EDT Per Brian, patient is scheduled. * Telephone Encounter - Kimmie Ahuja OSA - 08/20/2023 1:49 PM EDT Triage sent * Telephone Encounter - Tanja Small OSA - 08/17/2023 1:35 PM EDT Please call pt to schedule a datscan documented in this encounter Plan of Treatment Upcoming Encounters Date Type Department Care Team (Late st Contact Info) Description 08/21/2023 10:00 AM EDT Office Visit Neurology Asael Marquez [place] [address] [place] [address] Darron Calvillo MD [address] [place] [address] 08/29/2023 10:30 AM EDT Imaging [address] Cardiology, [address] [place] [address] 08/29/2023 2:30 PM EDT Imaging [address] Cardiology, [address] [place] [address] 09/28/2023 12:45 PM EDT Office Visit Dermatology [facility] [address] [place] [address] Mitchell Mack MD [address] [place] [address] 11/05/2023 1:00 PM EDT Office Visit [place] [address] [place] [address] Kaz Robledo MD [address] [place] [address] 12/11/2023 8:00 AM EDT Imaging Vascular Lab, [address] [place] [address] 12/11/2023 9:00 AM EDT Imaging Vascular Lab, [address] [place] [address] 12/19/2023 8:30 AM EDT Office Visit Vascular Surgery, [facility] [address] [place] [address] Rancho Soler MD [address] [place] [address] 02/21/2024 1:30 PM EDT Office Visit Neurology [facility] [address] [place] [address] Shantel Mc PA-C [address] [place], [place] [address] 03/18/2024 3:00 PM EST Office Visit Cardiology, [facility] [address] [place] [address] Marcia Collins CRNP [address] [place] [address] Scheduled Procedures Name Priority Associated Diagnoses Date/Ti [...] filedocumented as of this encounter Care Teams Software Client Architect Relationship Specialty Start Date End Date Kaz Robledo MD [address] [place] [address] PCP - General Family Medicine 03/05/17 documented as of this encounter
--- OUTSIDE RECORDS SUMMARY | 2023-10-19 07:23 | External Medical Summary | Summary of Care ---
Author Name Unknown Organization [facility] Address [address] [facility] [place] [address] Phone [phone] Care Team Providers Care Medical Scientist Name Role Phone Kaz Robledo MD Primary Care Provider [phone]- [phone] Reason for Referral * Precert (Within 10 days (routine)) - Pending Review Specialty Diagnoses / Procedures Referred By Yuan peterson Referred To Contact Radiology Diagnoses Tremor Anxiety Procedures NM BRAIN SPECT WITH Shantel Oliveros PA-C [address] [place] [id number] Referral ID Status Reason Start Date Expiration Date V isits Requested Visits Authorized [id number] Pending Review 08/24/2023 999 999 Reason for Visit * Reason Comments Follow Up Tremor Encounter Details Date Type Department Care Team (Late st Contact Info) Description 08/17/2023 1:20 PM EDT Office Visit [facility] [address] [place] [id number] Shantel Mc PA-C [address] [place] [id number] Tremor*; Anxiety Allergies Active Allergy Reactions Criticality Noted Date Comments Atorvastatin Muscle pain 12/11/2016 Bee Stings 02/21/1999 Hives,intense itching,edema documented as of this encounter (statuses as of 08/17/2023) Medications Medication Sig Dispensed Refills Start Date End Date Status LOW-DOSE ASPIRIN 81 MG PO TABS one daily 0 Active DAILY MULTIVITAMIN PO TABS 1 tablet daily 0 Active CALCIUM 500 MG PO TABS Take by mouth daily. 60 Tab 0 05/02/2010 Active NITROGLYCERIN 0.4 MG SL SUBLIndications:S table [...] 0 03/24/2018 Active Ketoconazole 2 % External CreamIndications: Seborrheic dermatitis Apply to face 2-3 x's per week. 30 g 4 02/05/2020 Active Diclofenac Sodium 1 % External GelIndications:Ac [place] pain of right shoulder Apply 4 gm [...] 3 04/24/2023 Active Fluocinonide 0.05 % External SolutionIndicatio ns:Seborrheic dermatitis Apply to scalp daily Sunday thru as needed for redness and flaking 60 mL 2 05/25/2023 Active Ketoconazole 2 % External Shampoo (Nizoral)Indicati ons:Seborrheic dermatitis Apply to scalp 2-3 x's per week. 360 mL 5 05/25/2023 Active Isosorbide Mononitrate ER 30 MG Oral Tablet Extended Release 24 Hour (Imdur)Indication s:Coronary artery disease involving [place] coronary artery of [place] heart without angina pectoris,Chronic coronary artery disease TAKE ONE TABLET BY MOUTH EVERY DAY IN THE MORNING 90 Tablet 3 05/30/2023 5 Active clonazePAM 0.5 MG Oral Tablet (KlonoPIN)Indicat ions:Sleep disorder,Adjustme nt disorder with mixed anxiety and depressed mood TAKE 1 TO 2 TABLETS BY MOUTH ONCE DAILY AT BEDTIME FOR SLEEP 60 Tablet 0 07/16/2023 Active amLODIPine Besylate 10 MG Oral Tablet (Norvasc) TAKE ONE TABLET BY MOUTH EVERY MORNING 90 Tablet 3 07/20/2023 5 Active Repatha Pushtronex System 420 MG/3.5ML Subcutaneous Solution Cartridge (Evolocumab with Infusor)Indicatio ns:Dyslipidemia, goal LDL below 100,Chronic coronary artery disease,PAD (peripheral artery disease) ([facility]) INJECT 420 MG UNDER THE SKIN EVERY MONTH -- ADMINISTER OVER 5 MINUTES -- REMOVE FROM REFRIGERATOR 45 MINUTES PRIOR TO INJECTION 10.5 mL 3 08/13/2023 5 Active Gabapentin 100 MG Oral Capsule (Neurontin) 1 tab at bedtime x 7 days then 1 tab twice daily x 7 days then 1 tab three times daily 90 Capsule 2 08/17/2023 Active Topiramate 15 MG Oral Capsule Sprinkle (Topamax Sprinkle)Indicati ons:Essential tremor Take 1 Capsule by mouth in the morning and 1 Capsule at noon and 1 Capsule in the evening. Sprinkle contents of capsule on food.. 270 Capsule 1 06/12/2023 4 Discontinu ed(Patient preference /discontin uation) documented as of this encounter (statuses as of 08/17/2023) Active Problems Problem Noted Date Diagnosed Date [...] as of this encounter (statuses as of 08/17/2023) Resolved Problems Problem Noted Date Diagnosed Date [...] disorder 02/15/2012 09/03/2017 Genetic Sleep Disorder Resea [facility] Other*[id number] 06/26/2011 12/08/2015 EXAMINATION OF PARTICIPANT I N CLINICAL TRIAL-Genomics 06/04/2009 08/20/2009 Overview: Renamed Per Clinical Trials Billing Project. Study Titile: Genomic Markers for Patients with Cardiovascular Disease Project #[id number] PI: Radha Yepez MD Please call [phone] with study related questions GENOMICS CARDIO RESEARCH OTHER*[id number] 06/04/2009 06/13/2016 Overview: Renamed Per Clinical Trials Billing Project. Study Titile: Genomic Markers for Patients with Cardiovascular Disease Project #[id number] PI: Radha Yepez MD Please call [phone] with study related questions Benign neoplasm of [...] as of this encounter (statuses as of 08/17/2023) Immunizations Name Administration Dates Next Due COVID-19 [...] Sign Reading Time Taken Comments Blood Pressure 148/74 08/17/2023 1:04 PM EDT Pulse 68 08/17/2023 1:04 PM EDT Temperature 35.7 C (96.2 F) 08/17/2023 1:04 PM ED T Respiratory Rate 18 08/17/2023 1:04 PM EDT Oxygen Saturation - - Inhaled Oxygen Concentration - - Weight 94.3 kg (207 lb 14.4 oz) 08/17/2023 1:04 PM EDT Height - - Body Mass Index 29.83 07/16/2023 2:20 PM EDT documented in this encounter Progress Notes * Shantel Mc PA-C - 08/17/2023 1:01 PM EDT HISTORY & PHYSICAL EXAMINATION - NEUROLOGY Name: Landen Camacho Date: 08/17/2023 Time: 1:01 PM Referring Provider: Shantel Mc, * Chief Complaint: Chief Complaint Patient presents with Follow Up Tremor This is a 78 year old right handed gentleman returns today for follow up for tremor. HPI & Source of HPI The patient was the historian, and he is reliable. He is here today for evaluation of tremor. It bothers him when he is trying to read the paper or when he is trying to button his shirt or writing. He was sent to physical therapy for gait training but they didn't think he needed it. PT told him they didn't feel he had parkinson's. There is no history he is aware of, of relatives that had a tremor. He sometimes uses a cane but only when he is on uneven ground. He states he has neuropathy but that is not on his problem list and he is not on any neuropathy medications. He is a past smoker quit many years ago, no EtOH use, no other drugs, minimalcaffeine use. He was started on topamax by his PCP but he was unable to tolerate so he weaned off. Propranolol was discussed but his blood pressure is not stable. He has not tried gabapentin. He thinks a lot of the issues he is having is caused by the stress he feels with his in [place] for dementia. They were 65 years and it is hard to see her 'this way" He has not had any falls but his blood pressure often drops and then he needs to sit down. Denies CP, SOB, abdominal pain, N, V, vision changes, falls. I have reviewed the patient's medications and allergies, past medical, surgical, social and family history, updating these as appropriate. See Histories section of the electronic medical record for adisplay of this information. 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 Other (AAA) Daughter Denies FH of AAA Medications: Are you taking your medications? yes Current Outpatient Medications Medication Sig Dispense Refill [...] DAY IN THE MORNING 90 Tablet 3 Topiramate 15 MG Oral Capsule Sprinkle (Topamax Sprinkle) Take 1 Capsule by mouth in the morning and 1 Capsule at noon and 1 Capsule in the evening. Sprinkle contents of capsule on food.. 270 Capsule1 clonazePAM 0.5 MG Oral Tablet (KlonoPIN) TAKE [...] MINUTES PRIOR TO INJECTION 10.5 mL 3 No current facility-administered medications for this visit. Review of patient's allergies indicates: Allergen Reactions Atorvastatin Muscle pain Bee Stings Hives,intense itching,edema Review of Systems: A total number of 10 systems were reviewed pertinent negative and positives not addressed in HPI are listed in the following review. Physical Exam: Constitutional: BP 148/74 (BP Site: Right Arm, BP Position: Sitting, BP Cuff Size: Regular) | Pulse68 | Temp 35.7 C (96.2 F) (Tympanic) | Resp 18 | Wt 94.3 kg (207 lb 14.4 oz) | BMI 29.83 kg/m| BSA 2.16 m , appearance nourished, healthy, and obese Ears, Nose, Mouth and Throat: mucous membranes moist, no injection and skin normal, eyes normal Cardiovascular: normal S-1 and S-2 and regular rate and rhythm Respiratory: clear to auscultation (CTA) and no rales, ronchi or wheeze Musculoskeletal: no peripheral edema Skin: normal and intact Eyes: extraocular muscles intact (EOMI) and pupils equal, round and reactive to light (PERRL), decrease eye blink frequency NEUROLOGIC EXAMINATION: Mental status: Alert and interactive Oriented to person Speech fluent with no evidence of aphasia Cranial Nerves Normal findings for Cranial Nerves II - XII Coordination: rapid alternating movements are intact: Bilateral and on [id number], R>L tremor no cogwheeling, + resting tremor right Gait/Stance: Posture normal. Gait tandem steady gait, does not block turns. Motor: Negative for pronator drift of out stretched arms with eyes closed. Strength: Normal - 5/5 all extremities LABORATORY: Recent labs reviewed Review of prior Studies: No recent imaging available. Impression: Landen Camacho is a 78 year old gentleman with a history of tremor. His neurologic examination today reveals same. The history and examination are suggestive of diagnosis/problem list. Testing and Referrals ordered: IZABELLA scan ICD-10-CM 1. Tremor R25.1 2. Anxiety F41.9 Return in 6 months or sooner if needed Was tried on topamax could not tolerate, propranolol can not be used do to blood pressure issues Start gabapentin 100 mg (1 tab) hs x 7 days then (1 tab) am/pm x 7 days then (1 tab) TID IZABELLA scan -cross over tremor, intentional and at rest. 5. PCP for medical management 6. Call with questions concerns. Medical Decision Making (determined by lowest of 2 of 3 elements): The medical decision making element of the number and complexity of problems addressed included at least 1 or more chronic illnesses with exacerbation, progression, or side effects of treatment (level 4). The medical decision making element of risk of complications, morbidity, and mortality of patient management is moderate (level 4) due to prescription drug management (moderate risk). The medical decision making element of the amount and complexity of data reviewed and analyzed included an independent interpretation of a test (level 4 at least). When 2 of 3 reach level 4, then this element is considered extensive (level 5). I personally spent a total of 30 minutes. This time was for a new office or established visit and was on the same calendar day. Education / Consultation - Topics covered as I spent 20 minutes, which is greater than 50% of this visit, counseling the patient on: Diagnostic Results Prognosis Risks and benefits of treatment options Risk factor reductions Patient and family education Consulted with physician: Girish Duran DO was available for direct supervision. Copy of note sent to PCP and Referring Provider. Total time of visit: 30 minutes. Shantel Mc PA-C Neurology [facility] [address] [facility] [address] [place] [address] 08/17/2023 1:01 PM documented in this encounter Nursing Notes * Maegan Leigh LPN - 08/17/2023 1:03 PM EDT Patient verified identity by spelling of last name and date. Chief Complaint Patient presents with Follow Up Tremor documented in this encounter Plan of Treatment Upcoming Encounters Date Type Department Care Team (Late st Contact Info) Description 09/28/2023 12:45 PM EDT Office Visit Dermatology [facility] [address] [facility] [address] Mitchell Mack MD [address] [facility] [place] [address] 11/05/2023 1:00 PM EDT Office Visit [facility] [address] [place] [id number] Kaz Robledo MD [address] [place] [address] 12/11/2023 8:00 AM EDT Imaging Vascular Lab, [facility] 2nd [facility] [address] [place] [address] 12/11/2023 9:00 AM EDT Imaging Vascular Lab, [address] [place] [address] 12/19/2023 8:30 AM EDT Office Visit Vascular Surgery, [facility] [address] [place] [address] Rancho Soler MD [address] [place] [address] 02/21/2024 1:30 PM EDT Office Visit Neurology [facility] [address] [place] [address] Shantel Mc PA-C [address] [place] [address] 03/18/2024 3:00 PM EST Office Visit Cardiology, [facility] [address] [place] [address] Marcia Collins CRNP [address] [place] [address] Scheduled Orders Name Type Priority Associated Diagnoses Orde r Schedule NM BRAIN SPECT WITH DATSCAN Medical Imaging Routine Tremor Anxiety Expected: 08/24/2023, Expires: 09/15/2024 Scheduled Procedures Name Priority Associated Diagnoses Date/Ti [...] Additional history exists Albumin/Creatinine Ratio 07/17/2026 07/18/2023, 0510/2022 DTaP,Tdap,and Td [...] as of this encounter Visit Diagnoses Diagnosis Tremor- Primary Abnormal involuntary movements Anxiety Anxiety state, unspecified documented in this encounter Care Teams Medical Scientist Relationship Specialty Start Date End Date Kaz Robledo MD [address] [place] [address] PCP - General Family Medicine 03/05/17 documented as of this encounter
--- OUTSIDE RECORDS SUMMARY | 2023-10-19 07:23 | External Medical Summary | Summary of Care ---
Author Name Unknown Organization [facility] Address [address] [place] [address] Phone [phone] Care Team Providers Care Supervisor Blueprinting And Photocopy Name Role Phone Kza Robledo MD Primary Care Provider +1- [phone] Reason for Visit * Reason Comments Medication Refill Encounter Details Date Type Department Care Team (Late st Contact Info) Description 08/13/2023 Refill Cardiology, [facility] [address] [place] [address] Rogerio Pringle, DO [address] [place] [address] Dyslipidemia, goal LDL below 100; Chronic coronary artery disease; PAD (peripheral artery disease) (HCC) Allergies Active Allergy Reactions Criticality Noted Date Comments Atorvastatin Muscle pain 12/11/2016 Bee Stings 02/21/1999 Hives,intense itching,edema documented as of this encounter (statuses as of 08/13/2023) Medications Medication Sig Dispensed Refills Start Date [...] Active Diclofenac Sodium 1 % External GelIndications:Ac [place] pain of right shoulder Apply 4 gm [...] 24 Hour (Imdur)Indication s:Coronary artery disease involving [place] coronary artery of [place] heart without angina pectoris,Chronic coronary artery disease TAKE ONE TABLET BY MOUTH EVERY DAY IN THE MORNING 90 Tablet 3 05/30/2023 5 Active Topiramate 15 MG Oral Capsule Sprinkle (Topamax Sprinkle)Indicati ons:Essential tremor Take 1 Capsule by mouth in the morning and 1 Capsule at noon and 1 Capsule in the evening. Sprinkle contents of capsule on food.. 270 Capsule 1 06/12/2023 Active clonazePAM 0.5 MG Oral Tablet (KlonoPIN)Indicat [...] 100,Chronic coronary artery disease,PAD (peripheral artery disease) ([facility]) INJECT 420 MG UNDER THE SKIN EVERY MONTH -- ADMINISTER OVER 5 MINUTES -- REMOVE FROM REFRIGERATOR 45 MINUTES PRIOR TO INJECTION 10.5 mL 3 08/13/2023 5 Active Evolocumab with Infusor 420 MG/3.5ML Subcutaneous Solution Cartridge (Repatha Pushtronex System)Indication s:Dyslipidemia, goal LDL below 100,Chronic coronary artery disease,PAD (peripheral artery disease) ([facility]) INJECT 420 MG UNDER THE SKIN EVERY MONTH -- ADMINISTER OVER 5 MINUTES -- REMOVE FROM REFRIGERATOR 45 MINUTES PRIOR TO INJECTION 10.5 mL 3 08/09/2022 Discontinu ed(Refill) documented as of this encounter (statuses as of 08/13/2023) Active Problems Problem Noted Date Diagnosed Date [...] as of this encounter (statuses as of 08/13/2023) Resolved Problems Problem Noted Date Diagnosed Date [...] 02/15/2012 09/03/2017 Genetic Sleep Disorder Resea [facility] Other*[id number] 06/26/2011 12/08/2015 EXAMINATION OF PARTICIPANT I N CLINICAL TRIAL-Genomics 06/04/2009 08/20/2009 Overview: Renamed Per Clinical Trials Billing Project. Study Titile: Genomic Markers for Patients with Cardiovascular Disease Project #[id number] PI: Radha Yepez MD Please call [phone] with study related questions GENOMICS CARDIO RESEARCH OTHER*[id number] 06/04/2009 06/13/2016 Overview: Renamed Per Clinical Trials Billing Project. Study Titile: Genomic Markers for Patients with Cardiovascular Disease Project #[id number] PI: Radha Yepez MD Please call [phone] with study related questions Benign neoplasm of [...] as of this encounter (statuses as of 08/13/2023) Immunizations Name Administration Dates Next Due COVID-19 mRNA, LNP-s, No Pre serve, 2-Dose Series (Moderna) 07/02/2020,06/03/2020 COVID-19, mRNA, LNP-s, PF, B ooster, 100mcg/0.5mg (Moderna) 10/06/2021,03/02/2021 Covid-19, Mrna, Lnp-s, Pf, B ivalent, 30 Mcg, IM, 12 yrs and above (TestSoup) 02/15/2022 H1N1 2009 Influenza, IM 05/10/2009 Pneumococcal [...] encounter Miscellaneous Notes * Telephone Encounter - Jovanni Campuzano CRNP - 08/13/2023 2:54 PM EDT Signed Prescriptions: Disp Refills Repatha Pushtronex System 420 MG/3.5ML Sub*10.5 mL3 Sig: INJECT 420 MG UNDER THE SKIN EVERY MONTH -- ADMINISTER OVER 5 MINUTES -- REMOVE FROM REFRIGERATOR 45 MINUTES PRIOR TO INJECTION Authorizing Provider: JOVANNI CAMPUZANO * Telephone Encounter - Tonya Nunes CMA - 08/13/2023 1:11 PM EDTPending Prescriptions: Disp Refills Repatha Pushtronex System 420 MG/3.5ML Sub*10.5 mL3 Sig: INJECT 420 MG UNDER THE SKIN EVERY MONTH -- ADMINISTER OVER 5 MINUTES -- REMOVE FROM REFRIGERATOR 45 MINUTES PRIOR TO INJECTION * Telephone Encounter - Tonya Nunes CMA - 08/13/2023 1:11 PM EDT Did you pend patient's preferred pharmacy and medication before forwarding?yes Pharmacy: [facility] Pending Prescriptions: Disp Refills Repatha Pushtronex System 420 MG/3.5ML Flores*10.5 mL3 Sig: INJECT 420 MG UNDER THE SKIN EVERY MONTH -- ADMINISTER OVER 5 MINUTES -- REMOVE FROM REFRIGERATOR 45 MINUTES PRIOR TO INJECTION Last Visit: 07/17/2023 (in office), Visit date not found (telemedicine) Next Visit: 03/18/2024 If no future appointments scheduled, and last appointment is greater than a year ago, please schedule patient for a follow-up appointment Last date the medication was ordered: 08-09-2022 Is this request for a controlled substance?No Urine Drug Screen:No results found. However, due to the size of the patient record, not all encounters were searched. Please check Results Review for a complete set of results. Patient Phone Numbers Labs: Lab Results Component Value Date/Time CREAT 0.9 07/17/2023 03:56 PM CREAT 0.9 11/12/2019 08:36 AM POTASSIUM 4.2 07/17/2023 03:56 PM POTASSIUM 4.4 11/12/2019 08:36 AM TSH 1.05 09/19/2022 01:57 PM TSH 1.95 03/11/2020 08:32 AM LDLCALC 133 (H) 07/05/2022 07:57 AM LDLCALC 35 03/13/2020 10:11 AM LDLDIRECT 44 02/16/2023 07:30 AM LDLDIRECT NOT APPLICABLE 03/13/2020 10:11 AM LDLDIRECT 92 10/13/2010 09:05 AM ALT 16 09/19/2022 01:57 PM ALT 15 11/12/2019 08:36 AM HGBA1C 5.8 (H) 07/17/2023 03:56 PM HGBA1C 5.9 06/27/2016 07:56 AM documented in this encounter Plan of Treatment Upcoming Encounters Date Type Department Care Team (Late st Contact Info) Description 08/17/2023 1:20 PM EDT Office Visit Neurology [facility] [address] [facility] [place] [address] Shantel Mc PA-C [address] [facility] [place] [address] 09/28/2023 12:45 PM EDT Office Visit Dermatology [facility] [address] [facility] [place] [address] Mitchell Mack MD 200 [facility] [place] [address] 11/05/2023 1:00 PM EDT Office Visit [facility] [address] [place] [id number] Kaz Robledo MD [address] [place] [address] 12/11/2023 8:00 AM EDT Imaging Vascular Lab, [facility] 2nd [facility], [address] [place] [address] 12/11/2023 9:00 AM EDT Imaging Vascular Lab, [facility] 2nd Floor, [place] [facility] [place] [address] 12/19/2023 8:30 AM EDT Office Visit Vascular Surgery, [facility] [address] [facility] [place] [address] Rancho Soler MD [address] [place] [address] 03/18/2024 3:00 PM EST Office Visit Cardiology, [facility] [address] [facility] [place] [address] Jovanni Campuzano CRNP 132 [facility] [place] [address] Scheduled Procedures Name Priority Associated Diagnoses Date/Ti [...] FOR COPD 07/15/2024 07/16/2023 GFR 07/16/2024 07/17/2023, 0510/2022, 09/05/2022, Additional history exists HbA1c 07/16/2024 07/17/2023, 03/0 05/2022, 08/23/2021, Additional history exists Albumin/Creatinine Ratio [...] as of this encounter Visit Diagnoses Diagnosis Dyslipidemia, goal LDL below 100 Other and unspecified hyperlipidemia Chronic coronary artery disease Coronary atherosclerosis of unspecified type of vessel, [place] or graft PAD (peripheral artery disease) (HCC) Peripheral vascular disease, unspecified documented in this encounter Care Teams Supervisor Blueprinting And Photocopy Relationship Specialty Start Date End Date Kaz Robledo MD [address] [place] [address] PCP - General Family Medicine 03/05/17 documented as of this encounter
--- OUTSIDE RECORDS SUMMARY | 2023-10-19 07:23 | External Medical Summary | Summary of Care ---
Author Name Unknown Organization [facility] Address [address] [place] [address] Phone [phone] Care Team Providers Care Patternmaker Bench Name Role Phone Usha Michaels MD Primary Care Provider [phone]- [phone] Reason for Visit * Reason Comments Medication Refill Encounter Details Date Type Department Care Team (Late st Contact Info) Description 07/19/2023 Refill [facility] [address] [place] [address] Silvia Griffith MD [address] [place] [address] Allergies Active Allergy Reactions Criticality Noted Date Comments Atorvastatin Muscle pain 12/11/2016 Bee Stings 02/21/1999 Hives,intense itching,edema documented as of this encounter (statuses as of 07/20/2023) Medications Medication Sig Dispensed Refills Start Date End Date Status LOW-DOSE ASPIRIN 81 MG PO TABS one daily 0 Active DAILY MULTIVITAMIN PO TABS 1 tablet daily 0 Active CALCIUM 500 MG PO TABS Take by mouth daily. 60 Tab 0 05/02/2010 Active NITROGLYCERIN 0.4 MG SL SUBLIndications:S table angina 1 TAB EVERY 5 MIN NEEDED, UP [...] Active Diclofenac Sodium 1 % External GelIndications:Ac [place] pain of right shoulder Apply 4 gm [...] affected area. 45 g 0 10/17/2022 Active Evolocumab with Infusor 420 MG/3.5ML Subcutaneous Solution Cartridge (CamPlex Pushtronex System)Indication s:Dyslipidemia, goal LDL below 100,Chronic coronary artery disease,PAD (peripheral artery disease) ([facility]) INJECT 420 MG UNDER THE SKIN EVERY MONTH -- ADMINISTER OVER 5 MINUTES -- REMOVE FROM REFRIGERATOR 45 MINUTES PRIOR TO INJECTION 10.5 mL 3 08/09/2022 4 Active Cilostazol 100 MG Oral Tablet (Pletal) [...] 24 Hour (Imdur)Indication s:Coronary artery disease involving [place] coronary artery of [place] heart without angina pectoris,Chronic coronary artery disease [...] FOR SLEEP 60 Tablet 0 07/16/2023 Active Amoxicillin 500 MG Oral Capsule (Amoxil)Indicatio ns:Acute sinusitis, recurrence not specified, unspecified location Take 1 Capsule by mouth in the morning and 1 Capsule at noon and 1 Capsule before bedtime. Do all this for 10 days. 30 Capsule 0 07/16/2023 4 Active amLODIPine Besylate 10 MG Oral Tablet (Norvasc) TAKE ONE TABLET BY MOUTH EVERY MORNING 90 Tablet 3 07/20/2023 5 Active amLODIPine Besylate 10 MG Oral Tablet (Norvasc) TAKE ONE TABLET BY MOUTH EVERY MORNING 90 Tablet 3 08/10/2022 4 Discontinu ed(Refill) documented as of this encounter (statuses as of 07/20/2023) Active Problems Problem Noted Date Diagnosed Date [...] as of this encounter (statuses as of 07/20/2023) Resolved Problems Problem Noted Date Diagnosed Date [...] disorder 02/15/2012 09/03/2017 Genetic Sleep Disorder [facility] Other*[id number] 06/26/2011 12/08/2015 EXAMINATION OF PARTICIPANT I N CLINICAL TRIAL-Genomics 06/04/2009 08/20/2009 Overview: Renamed Per Clinical Trials Billing Project. Study Titile: Genomic Markers for Patients with Cardiovascular Disease Project #[id number] PI: Radha Yepez MD Please call [phone] with study related questions GENOMICS CARDIO RESEARCH OTHER*[id number] 06/04/2009 06/13/2016 Overview: Renamed Per Clinical Trials Billing Project. Study Titile: Genomic Markers for Patients with Cardiovascular Disease Project #[id number] PI: Radha Yepez MD Please call [phone] with study related questions Benign neoplasm of [...] as of this encounter (statuses as of 07/20/2023) Immunizations Name Administration Dates Next Due COVID-19 [...] encounter Miscellaneous Notes * Telephone Encounter - Logan Haywood RPh - 07/20/2023 3:27 AM EDTSigned Prescriptions: Disp Refills amLODIPine Besylate 10 MG Oral Tablet (Nor*90 Tab*3 Sig: TAKE ONE TABLET BY MOUTH EVERY MORNINGAuthorizing Provider: USHA MICHAELS User: LOGAN HAYWOOD documented in this encounter Plan of Treatment Upcoming Encounters Date Type Department Care Team (Late st Contact Info) Description 08/17/2023 1:20 PM EDT Office Visit Neurology [facility] [address] [place] [address] Shantel Mc PA-C [address] [facility] [place] [address] 09/28/2023 12:45 PM EDT Office Visit Dermatology [facility] [address] [place] [address] Mitchell Mack MD [address] [facility] [place] [address] 11/05/2023 1:00 PM EDT [facility] [address] [place] [address] Usha Michaels MD [address] [place] [address] 03/18/2024 3:00 PM EST Office Visit [facility] [address] [facility] [address] Marcia Collins [facility] [address] Scheduled Procedures Name Priority Associated Diagnoses Date/Ti me COLONOSCOPY FLEXIBLE PROXIMAL DIAGNOSTIC Recall History of colon polyps Health Maintenance Due Date Last Done Comments Alpha-1 Antitrypsin 1963 COLONOSCOPY-ANNUAL AGES 18-100 03/20/2020 03/20/2019, 03/20/2019, 10/15/2017, Additional history exists COVID-19 Vaccine (2022- season) 2023 02/15/2022, 10/06/2021, 03/02/2021, Additional history exists *COPD SEVERITY VERIFIED BY PFT 05/28/2023 Depression Screening 01/10/2024 01/09/2023 O2 ASSESSMENT COMPLETED IN PAST YEAR FOR [...] filedocumented as of this encounter Care Teams Patternmaker Bench Relationship Specialty Start Date End Date Usha Michaels MD [address] [place] [address] PCP - General Family Medicine 03/05/17 documented as of this encounter
--- OUTSIDE RECORDS SUMMARY | 2023-10-19 07:23 | External Medical Summary | Summary of Care ---
Author Name Unknown Organization [facility] Address [address] [place] [address] Phone [phone] Care Team Providers Care Bar Finish Operator Name Role Phone Kaz Robledo MD Primary Care Provider [phone]- [phone] Reason for Visit * Reason Onset Date Comments Appointment 08/17/2023 Nuclear Med Encounter Details Date Type Department Care Team (Late st Contact Info) Description 08/17/2023 Telephone Neurology [facility] [place] [address] [place] [address] Shantel Mc PA-C [address] [place] [address] Appointment (Nuclear Med) Allergies Active Allergy Reactions [...] 24 Hour (Imdur)Indications :Coronary artery disease involving [place] coronary artery of [place] heart without angina pectoris,Chronic coronary artery disease [...] artery disease,PAD (peripheral artery disease) ([facility]) INJECT 420 MG UNDER THE SKIN EVERY [...] disorder 02/15/2012 09/03/2017 Genetic Sleep Disorder Resea [facility] Other*[id number] 06/26/2011 12/08/2015 EXAMINATION OF PARTICIPANT I N CLINICAL TRIAL-Genomics 06/04/2009 08/20/2009 Overview: Renamed Per Clinical Trials Billing Project. Study Titile: Genomic Markers for Patients with Cardiovascular Disease Project #[id number] PI: Radha Yepez MD Please call [phone] with study related questions GENOMICS CARDIO RESEARCH OTHER*[id number] 06/04/2009 06/13/2016 Overview: Renamed Per Clinical Trials Billing Project. Study Titile: Genomic Markers for Patients with Cardiovascular Disease Project #[id number] PI: Radha Yepez MD Please call [phone] with study related questions Benign neoplasm of [...] 09/28/2023 12:45 PM EDT Office Visit Dermatology [facility] [address] [facility] [place] [address] Mitchell Mack MD [address] [place] [address] 11/05/2023 1:00 PM EDT Office Visit [facility] [address] [facility] [id number] Kaz [facility]o [facility] [address] [facility] [address] 12/11/2023 8:00 AM EDT Imaging Vascular Lab, [facility] 2nd [facility] [address] [facility] [place] [address] 12/11/2023 9:00 AM EDT Imaging Vascular Lab, [facility] 2nd Floor, [place] [address] [place] [address] 12/19/2023 8:30 AM EDT Office Visit Vascular Surgery, [facility] [address] [facility] [place] [address] Rancho Soler MD [address] [facility] [address] 02/21/2024 1:30 PM EDT [facility] [address] [place] [address] Shantel Mc PA-C [address] [place] [address] 03/18/2024 3:00 PM EST Office Visit Cardiology, [facility] [address] [facility] [place] [address] Marcia Collins CRNP [address] [facility] [place] [address] Scheduled Procedures Name Priority Associated Diagnoses Date/Ti [...] filedocumented as of this encounter Care Teams Bar Finish Operator Relationship Specialty Start Date End Date Kaz Robledo MD [address] [place] [address] PCP - General Family Medicine 03/05/17 documented as of this encounter
--- OUTSIDE RECORDS SUMMARY | 2023-10-19 07:24 | External Medical Summary | Summary of Care ---
Author Name Unknown Organization [facility] Address [address] [place] [address] Phone [phone] Care Team Providers Care Full Stack Php Developer Name Role Phone Kaz Robledo MD Primary Care Provider [phone] Reason for Visit * Reason Comments Acute Cold symptoms Encounter Details Date Type Department Care Team (Late st Contact Info) Description 07/16/2023 2:20 PM EDT Office Visit [facility] [address] [place] [id number] Kaz Robledo MD [address] [place], [place] [phone] Acute sinusitis, recurrence not specified, unspecified location*; Viral URI; Sleep disorder; Adjustment disorder with mixed anxiety and depressed mood; Risk and functional assessment Allergies Active Allergy Reactions Criticality Noted Date Comments Atorvastatin Muscle pain 12/11/2016 Bee Stings 02/21/1999 Hives,intense itching,edema documented as of this encounter (statuses as of 07/16/2023) Medications Medication Sig Dispensed Refills Start Date [...] Active Diclofenac Sodium 1 % External GelIndications:Ac ione pain of right shoulder Apply 4 gm [...] affected area. 45 g 0 10/17/2022 Active amLODIPine Besylate 10 MG Oral Tablet (Norvasc) TAKE ONE TABLET BY MOUTH EVERY MORNING 90 Tablet 3 08/10/2022 4 Active Additional Information Patient taking differently: 10 mg Oral HS, Reported on 03/13/2023 Evolocumab with Infusor 420 MG/3.5ML Subcutaneous Solution Cartridge ([employer] Pushtronex System)Indication s:Dyslipidemia, goal LDL below 100,Chronic coronary artery disease,PAD (peripheral artery disease) ([facility]) INJECT 420 MG UNDER THE [...] (Imdur)Indication s:Coronary artery disease involving [place] coronary artery of [place] heart without angina pectoris,Chronic coronary artery disease [...] days. 30 Capsule 0 07/16/2023 4 Active clonazePAM 0.5 MG Oral Tablet (KlonoPIN)Indicat ions:Sleep disorder TAKE 1 TO 2 TABLETS BY MOUTH ONCE DAILY AT BEDTIME FOR SLEEP 60 Tablet 0 05/22/2023 4 Discontinu ed(Refill) documented as of this encounter (statuses as of 07/16/2023) Active Problems Problem Noted Date Diagnosed Date [...] as of this encounter (statuses as of 07/16/2023) Resolved Problems Problem Noted Date Diagnosed Date [...] 02/15/2012 09/03/2017 Genetic Sleep Disorder [facility] Other*[id number] 06/26/2011 12/08/2015 EXAMINATION OF PARTICIPANT I N CLINICAL TRIAL-Genomics 06/04/2009 08/20/2009 Overview: Renamed Per Clinical Trials Billing Project. Study Titile: Genomic Markers for Patients with Cardiovascular Disease Project #[id number] PI: Radha Yepze MD Please call [phone] with study related questions GENOMICS CARDIO RESEARCH OTHER*[id number] 06/04/2009 06/13/2016 Overview: Renamed Per Clinical Trials Billing Project. Study Titile: Genomic Markers for Patients with Cardiovascular Disease Project #[id number] PI: Radha Yepez MD Please call [phone] with study related questions Benign neoplasm of [...] as of this encounter (statuses as of 07/16/2023) Immunizations Name Administration Dates Next Due COVID-19 [...] Sign Reading Time Taken Comments Blood Pressure 132/68 07/16/2023 2:20 PM EDT Pulse 74 07/16/2023 2:20 PM EDT Temperature 36.7 C (98 F) 07/16/2023 2:20 PM EDT Respiratory Rate 18 07/16/2023 2:20 PM EDT Oxygen Saturation 96% 07/16/2023 2:20 PM EDT Inhaled Oxygen Concentration - - Weight 94.6 kg (208 lb 9.6 oz) 07/16/2023 2:20 P M EDT Height 177.8 cm (5' 10") 07/16/2023 2:20 PM EDT Body Mass Index 29.93 07/16/2023 2:20 PM EDT documented in this encounter Patient Instructions * Patient Instructions* Rica Cruz LPN - 07/16/2023 2:20 PM EDT Patient Instructions - Fall Prevention (This education is for all patients over 65 regardless of symptoms) Remember to take your current medications as prescribed. In order to prevent falls, you are encouraged to: Exercise Utilize assistive/adaptive devices Avoid multifocal lenses when walking Avoid hazards in home Maintain a regular toileting schedule Any questions please contact our office. Preventing Falls in the Home (This education is for all patients over 65 regardless of symptoms) As you get older, falls are more likely. Thats because your reaction time slows. Your muscles and joints may also get stiffer, making them less flexible. Illness, medications, and vision changes can also affect your balance. A fall could leave you unable to live on your own. To make your home safer, follow these tips: Floors Put nonskid pads under area rugs Remove throw rugs Replace worn floor coverings Tack carpets firmly to each step on carpeted stairs. Put nonskid strips on the edges of uncarpeted stairs Keep floors and stairs free of clutter and cords Arrange furniture so there are clear pathways Clean up any spills right away Bathrooms Install grab bars in the tub or shower Apply nonskid strips or put a nonskid rubber mat in the tub or shower Sit on a bath chair to bathe Use bathmats with nonskid backing Lighting Keep a flashlight in each room Put a nightlight along the pathway between the bedroom and the bathroom [employer] Patient Education Copyright 2008 - 2010 [employer] except where otherwise noted Preventing Falls: Exercises to Improve Balance, Flexibility, Strength, and Staying Power (This education is for all patients over 65 regardless of symptoms) Certain types of exercises may help make you less likely to fall. Try the ones below. Or do other exercises that your healthcare provider suggests. Depending on your health, you may need to start slowly. Dont let that stop you. Even small amounts of exercise can help you. Be sure to talk to yourhealthcare provider before starting any exercise program. Improve Balance Many types of exercise can help improve balance. Russell chi and yoga are good examples. Heres another one to try. You can do it anytime and almost anywhere. Stand next to a counter or solid support. Push yourself up onto your tiptoes. Hold for 5 seconds. If you start to lose your balance, hold on to the counter. Rest and repeat 5 times. Work up to holding for 20 to 30 seconds, if you can. Increase Flexibility Being more flexible makes it easier for you to move around safely. Try exercises like the seated hamstring stretch. Sit in a chair and put one foot on a stool. Straighten your leg and reach with both hands down either side of your leg. Reach as far down your leg as you can. Hold for about 20 seconds. Go back to the starting position. Then repeat 5 times. Switch legs. Build Strength Resistance exercises help build strength. You can do them without equipment. Or you can use weights, elastic bands, or special machines. One such exercise is called the biceps curl. You can hold a 1 pound weight or even a can of soup. Do this exercise at least 3 times a week. Strive for everyday. Sit up straight in a chair. Keep your elbow close to your body and your wrist straight. Bend your arm, moving your hand up to your shoulder. Then slowly lower your arm. Repeat 5 times. Switch to the other arm. Build Your Staying Power Aerobic exercises make your heart and lungs stronger so you can keep moving longer. Walking and swimming are two of the best types of exercises you can do. Using a stationary bike is great, too. Find an aerobic exercise that you enjoy. Start slowly and build up. Even 5 minutes is helpful. Aimfor a goal of 30 minutes, at least 3 times a week. You dont have to do 30 minutes in one session. Break it up and walk a little throughout the day. More Helpful Tips Start easy. Slowly work up to doing more. Talk with your healthcare provider about the best exercises for you. Call senior centers or health clubs about exercise programs. If needed, have a family member watch you walk every so often to check your stability. Exercise with a friend. Choose an activity you both enjoy. Try exercises that you can do anytime, anywhere. Here are two examples. Have someone with you when you first try these: Practice walking by placing one foot right in front of the other. Stand up and sit down 10 times. Repeat this throughout the day. [employer] Patient Education Copyright 2008 [employer] except where otherwise noted. Preventing Falls: Moving Safely Using a Cane or Walker (This education is for all patients over 65 regardless of symptoms) Keep the cane away from your feet so you dont trip. A walking aid, such as a cane or walker, can help you stay more independent and avoid falls. Remember to keep your walking aid within easy reach when youre in a chair or in bed. And learn how to use it safely so you dont injure yourself. Using a Cane If you have a stronger side, hold the cane on that side. Get your balance. Move the cane and your weaker leg forward. Support your weight on both the cane and your weaker side. Step with your stronger leg. Start again from step 1. If youre using a folding walker, be sure you know how to lock it open. Check that its locked open before each use. Using a Walker Roll the walker (or lift it, if youre using one without wheels) forward about 12 inches. Step forward with your weaker leg first. Use the walker to help keep your balance. Bring your other foot forward to the center of the walker. Start again from step 1. Helpful Tips Check with your healthcare provider about the right walking aid to use. Ask about a walker with a seat attached. Check the tips of your cane or walker to make sure they have nonskid covers. Move slowly from room to room. Dont herbert. Sit down to get dressed. Use a eddie pack or backpack to keep your hands free. Get help for jobs that mean climbing, even on a stepstool. [employer] Patient Education Copyright 2008 - 2010 [employer] except where otherwise noted. Treating Urinary Incontinence in Men (This education is for all patients over 65 regardless of symptoms) You can't always control the release of urine. You may leak urine. Or you may not be able to hold your urine until you can get to a bathroom. This is called urinary incontinence. The problem can be managed. Talk to your doctor about your treatment options. Taking Medications Prescription medications may help you. They may: Help the sphincter to work better. (This is the muscle that closes to keep urine from leaking out of the bladder.) Help stop the bladder from dara too often to push urine out. Help the bladder muscles contract with more force. Help relax the sphincter muscle and allow urine to flow more freely. Making Changes to Your Routine Certain changes in your daily routine may help. These include: Avoiding caffeine and alcohol. Using timed voiding. This is following a schedule for drinking fluids and urinating. Doing Kegel exercises daily. These exercises involve tightening the muscles in your sphincter and around your bladder to help strengthen them. Your doctor can explain how to do them. Using a Catheter A catheter is a narrow tube that is inserted through the urethra into the bladder. It drains urine.A condom catheter covers the penis. It channels urine into a collection bag. It is worn most of thetime. Intermittent catheterization means inserting a catheter to drain the bladder, then removing it. This is done on a regular schedule. Having Surgery If other options don't work, surgery may be recommended. If surgery is an option, your healthcare provider can discuss it with you and explain its risks and benefits. Healing After Prostate Surgery Surgery on the prostate gland can cause incontinence. Most often, the incontinence is only for a short time. It clears up when healing is complete. Very rarely, prostate surgery can result in permanent incontinence. documented in this encounter Progress Notes * Kaz Robledo MD - 07/16/2023 3:04 PM EDT Subjective: Landen Camacho is a 78 year old male here today for Chief Complaint Patient presents with Acute Cold symptoms Patient presents for acute visit. He reports 3 days of nasal congestion, sore throat, sinus pressure, body aches, nonproductive cough. No fever or vomiting or diarrhea. He has had exposures to healthcare facilities with his being in a [facility] and being in the hospital. Reports symptoms are worsening. Is requesting a refill on clonazepam. Still having difficulties with his anxiety and tremor. Recently started on topiramate. 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 COLONOSCOPY 01/07 tubular adenoma -repeat [id number] COLONOSCOPY W/ BIOPSY (RECTUM) 05/11/08 repeat in 3 yrs/adenomatous COLONOSCOPY, DIAGNOSTIC (RECTUM) 09/13/2015 adenomatous polyp, diverticulosis, repeat 1 yr/COLONOSCOPY FLEXIBLE PROXIMAL DIAGNOSTIC performed by Ariel Johnson MD at ENDOSCOPY [facility] COLONOSCOPY, DIAGNOSTIC (RECTUM) 10/15/2017 adenomatous & hyperplastic polyps, diverticulosis, fair prep, repeat 1 yr/COLONOSCOPY FLEXIBLE PROXIMAL DIAGNOSTIC performed by Gema Rodas MD at ENDOSCOPY [facility] COLONOSCOPY, DIAGNOSTIC (RECTUM) 03/20/2019 adenomatous polyp, diverticulosis, fair prep, repeat 1 yr/COLONOSCOPY FLEXIBLE PROXIMAL DIAGNOSTIC performed by Gema Rodas MD at ENDOSCOPY [facility] KNEE ARTHROSCOPY/MENISCECTOMY left OTHER 02/06 perirectal abscess REMOVAL OF TONSILS, UNDER AGE 12 REPAIR RECURRENT INGUINAL HERNIA mesh right RMV MALG LSN FACE/EAR <=.5 CM 07/05 basal cell right sub ear area Review of patient's allergies indicates: Allergen Reactions [...] day. To affected area. 45 g 0 amLODIPine Besylate 10 MG Oral Tablet (Norvasc) TAKE ONE TABLET BY MOUTH EVERY MORNING (Patient taking differently: Take 1 Tablet by mouth at bedtime.) 90 Tablet 3 Evolocumab with Infusor 420 MG/3.5ML Subcutaneous Solution Cartridge ([employer] Pushtronex System) INJECT 420 MG UNDER THE SKIN EVERY MONTH -- ADMINISTER OVER 5 MINUTES -- REMOVE FROM REFRIGERATOR 45 MINUTES PRIOR TO INJECTION 10.5 mL 3 Cilostazol 100 MG Oral Tablet (Pletal) take [...] AT BEDTIME FOR SLEEP 60 Tablet 0 Amoxicillin 500 MG Oral Capsule (Amoxil) Take 1 Capsule by mouth in the morning and 1 Capsule at noon and 1 Capsule before bedtime. Do all this for 10 days. 30 Capsule 0 No current facility-administered medications for this visit. Objective: BP 132/68 | Pulse 74 | Temp 36.7 C (98 F) (Temporal Artery) | Resp 18 | Ht 1.778 m (5' 10") | Wt 94.6 kg (208 lb 9.6 oz) | SpO2 96% | BMI 29.93 kg/m | BSA 2.16 m GEN: NAD HEENT: TM's clear. OP clear. MMM. CHEST: CTA B CV: RRR EXT: No c,c,e Assessment and Plan: Acute sinusitis, recurrence not specified, unspecified location (Primary) Viral URI -swab for RSV, influenza, COVID. Will be in touch with these test results. Encourage plenty of fluids and rest. Provided a prescription for amoxicillin. If viral swab is negative and symptoms progressive over the next several days will cover for sinus infection. Call for new or worsening symptoms Sleep disorder - clonazePAM 0.5 MG Oral Tablet (KlonoPIN); TAKE 1 TO 2 TABLETS BY MOUTH ONCE DAILY AT BEDTIME FOR SLEEP Adjustment disorder with mixed anxiety and depressed mood - clonazePAM 0.5 MG Oral Tablet (KlonoPIN); TAKE 1 TO 2 TABLETS BY MOUTH ONCE DAILY AT BEDTIME FOR SLEEP -discussed addition of BuSpar for anxiety and I have elected to hold off for now. Will let me know of his anxiety worsens. Is already on citalopram. Tremor - has been seen by Neurology. [place] to be an essential tremor. Does have follow-up with Neurology. Risk and functional assessment 30 min with pt and documentation Kaz Robledo MD documented in this encounter Nursing Notes * Rica Cruz LPN - 07/16/2023 2:20 PM EDT The patient has been properly identified by confirmation of name and date of . Chief Complaint Patient presents with Acute Cold symptoms Runny nose, muscle aches, insomnia, slight sore throat, head pressure, nausea, increased anxiety Denies ear pain, headaches, vomiting, Symptoms began 2 1/2 days ago documented in this encounter Plan of Treatment Upcoming Encounters Date Type Department Care Team (Late st Contact Info) Description 07/17/2023 3:00 PM EDT Office Visit Cardiology, [facility] [address] [place] [id number] Marcia Collins CRNP [address] [facility] [place] [address] 08/17/2023 1:20 PM EDT Office Visit Neurology [facility] [address] [facility] [place] [address] Shantel Mc PA-C [address] [facility] [place] [address] 09/28/2023 12:45 PM EDT Office Visit Dermatology [facility] [address] [facility] [place] [address] Mitchell Mack MD [address] [facility] [place] [address] 11/05/2023 1:00 PM EDT Office Visit [facility] [address] [place] [phone] Kaz Robledo MD [address] [place], [place] [phone] Pending Results Name Type Priority Associated Diagnoses Date /Time INFLUENZA A/B RSV SARS-COV2,PCR Lab Routine Viral URI 07/16/2023 3:08 PM EDT Scheduled Orders Name Type Priority Associated Diagnoses Orde r Schedule INFLUENZA A/B RSV SARS-COV2,PCR Lab Routine Viral URI Expected: 07/16/2023 (Approximate), Expires: 07/15/2024 Scheduled Procedures Name Priority Associated Diagnoses Date/Ti me COLONOSCOPY FLEXIBLE PROXIMAL DIAGNOSTIC Recall History of colon polyps Health Maintenance Due Date Last Done Comments Alpha-1 Antitrypsin 1963 COLONOSCOPY-ANNUAL AGES 18-100 03/20/2020 03/20/2019, 03/20/2019, 10/15/2017, Additional history exists COVID-19 Vaccine (2022- season) 2023 02/15/2022, 10/06/2021, 03/02/2021, Additional history exists *COPD SEVERITY VERIFIED BY PFT 05/28/2023 HbA1c 07/06/2023 07/05/2022, 08/05, 06/27/2016, Additional history exists GFR 09/20/2023 09/19/2022, 06/2022, 07/05/2022, Additional history exists Depression Screening 01/10/2024 01/09/2023 O2 ASSESSMENT COMPLETED IN PAST YEAR FOR COPD 07/15/2024 07/16/2023 Albumin/Creatinine Ratio 09/29/2025 09/29/2022 DTaP,Tdap,and Td Vaccines (3 - Td or [...] as of this encounter Visit Diagnoses Diagnosis Acute sinusitis, recurrence not specified, unspecified location- Primary Viral URI Acute upper respiratory infections of unspecified site Sleep disorder Sleep disturbance, unspecified Adjustment disorder with mixed anxiety and depressed mood Risk and functional assessment Screening for unspecified condition documented in this encounter Care Teams Full Stack Php Developer Relationship Specialty Start Date End Date Kaz Robledo MD [address] [place] [address] PCP - General Family Medicine 03/05/17 documented as of this encounter
--- OUTSIDE RECORDS SUMMARY | 2023-10-19 07:24 | External Medical Summary ---
Author Name Unknown Address Unknown Organization [id number]:[facility] - [address] [place] [address] Laboratory Report Ordering Provider Test Date Status MIRI MIRAMONTES 07/17/2023 15:56:29 Final Observation Date Value Abnormality Reference (Units ) Status MYCODE SPECIMEN-SST 07/17/2023 15:56:29 Freezing of extracted DNA, whole blood and/or serum. Final Performing Location [facility] - [address] [place] [address]
--- OUTSIDE RECORDS SUMMARY | 2023-10-19 07:24 | External Medical Summary ---
Author Name Unknown Address Unknown Organization [id number]:[facility] [place] [address] [place] [address] Laboratory Report Ordering Provider Test Date Status XENIA KERR 07/17/2023 15:56:29 Final Observation Date Value Abnormality Reference (Units ) Status HbA1C 07/17/2023 15:56:29 5.8 Above high normal 4. 0-5.6 (%) Final The use of HbA1c to monitor glycemic status is based on normal hemoglobin and HbA composition. This test should not be used in patients with abnormal hemoglobin that affects the half life of the red blood cell or the in vivo glycation rates. Glucose, estimated average 07/17/2023 15:56:29 120 <126 (mg/dL) Final Performing Location [facility] [address] [facility] [address]
--- OUTSIDE RECORDS SUMMARY | 2023-10-19 07:24 | External Medical Summary ---
Author Name Unknown Address Unknown Organization K01:[facility] - [address] [place] [address] Laboratory Report Ordering Provider Test Date Status MIRI MIRAMONTES 07/17/2023 15:56:29 Final Observation Date Value Abnormality Reference (Units ) Status MYCODE SPECIMEN-SST 07/17/2023 15:56:29 Freezing of extracted DNA, whole blood and/or serum. Final Performing Location [facility] - [address] [place] [address]
--- OUTSIDE RECORDS SUMMARY | 2023-10-19 07:24 | External Medical Summary ---
Author Name Unknown Address Unknown Organization K01:[facility]ORY [facility] [place] - [address] [place] [address] Laboratory Report Ordering Provider Test Date Status TATIANNA BAIG 07/18/2023 12:04:08 Final Observation Date Value Abnormality Reference (Units ) Status Color of Urine by Auto 07/18/2023 12:04:08 Yellow Colorless, Light Yellow, Yellow, Dark Yellow Final Clarity, Urine 07/18/2023 12:04:08 Clear Clear Final Glucose [Mass/volume] in Urine by Automated test strip 07/18/2023 12:04:08 Negative Negative (mg/dL) Final Bilirubin.total [Presence] in Urine by Automated test strip 07/18/2023 12:04:08 Negative Negative Final Ketones [Mass/volume] in Urine by Automated test strip 07/18/2023 12:04:08 Negative Negative (mg/dL) Final Specific gravity, Urine 07/18/2023 12:04:08 1.016 1.003-1.030 Final Hemoglobin [Presence] in Urine by Automated test strip 07/18/2023 12:04:08 Negative Negative Final pH, Urine 07/18/2023 12:04:08 6.5 5.0-7.5 (Units) Final Protein [Mass/volume] in Urine by Automated test strip 07/18/2023 12:04:08 Negative Negative (mg/dL) Final Urobilinogen [Mass/volume] in Urine by Automated test strip 07/18/2023 12:04:08 Normal Normal (mg/dL) Final Nitrite [Presence] in Urine by Automated test strip 07/18/2023 12:04:08 Negative Negative Final Leukocyte esterase [Presence] in Urine by Automated test strip 07/18/2023 12:04:08 Negative Negative Final Annotation Comment 07/18/2023 12:04:08 Final Screen negative - Microscopi c not performed. Performing Location [facility] [address] [place] [address]
--- OUTSIDE RECORDS SUMMARY | 2023-10-19 07:24 | External Medical Summary | Summary of Care ---
Author Name Unknown Organization [facility] Address [address] [place] [address] Phone [phone] Care Team Providers Care Career Counselor Name Role Phone Kaz Robledo MD Primary Care Provider +1- [phone] Reason for Visit * Reason Comments Outpatient Testing Encounter Details Date Type Department Care Team (Late st Contact Info) Description 07/18/2023 12:10 PM EDT Laboratory Laboratory, [address] [address] [address], Specimen Drop Off [address] [address] Urinary urgency; HTN, goal below 140/90 Allergies Active Allergy Reactions Criticality Noted Date Comments Atorvastatin Muscle pain 12/11/2016 Bee Stings 02/21/1999 Hives,intense itching,edema documented as of this encounter (statuses as of 07/18/2023) Medications Medication Sig Dispensed Refills Start Date End Date Status LOW-DOSE ASPIRIN 81 MG PO TABS one daily 0 Active DAILY MULTIVITAMIN PO TABS 1 tablet daily 0 Active CALCIUM 500 MG PO TABS Take by mouth daily. 60 Tab 0 05/02/2010 Active NITROGLYCERIN 0.4 MG SL SUBLIndications:St able angina 1 TAB EVERY 5 MIN NEEDED, [...] with Infusor 420 MG/3.5ML Subcutaneous Solution Cartridge ([employer] Pushtronex System)Indications :Dyslipidemia, goal LDL below 100,Chronic coronary artery disease,PAD [...] 24 Hour (Imdur)Indications :Coronary artery disease involving [place] coronary artery of [place] heart without angina pectoris,Chronic coronary artery disease TAKE ONE TABLET BY MOUTH EVERY DAY IN THE MORNING 90 Tablet 3 05/30/2023 Active Topiramate 15 MG Oral Capsule Sprinkle (Topamax Sprinkle)Indicatio ns:Essential tremor Take 1 Capsule by mouth in the morning and 1 Capsule at noon and 1 Capsule in the evening. Sprinkle contents of capsule on food.. 270 Capsule 1 06/12/2023 Active clonazePAM 0.5 MG Oral Tablet (KlonoPIN)Indicati ons:Sleep disorder,Adjustmen t disorder with mixed anxiety and depressed mood TAKE 1 TO 2 TABLETS BY MOUTH ONCE DAILY AT BEDTIME FOR SLEEP 60 Tablet 0 07/16/2023 Active Amoxicillin 500 MG Oral Capsule (Amoxil)Indication s:Acute sinusitis, recurrence not specified, unspecified location Take 1 Capsule by mouth in the morning and 1 Capsule at noon and 1 Capsule before bedtime. Do all this for 10 days. 30 Capsule 0 07/16/2023 4 Active documented as of this encounter (statuses as of 07/18/2023) Active Problems Problem Noted Date Diagnosed Date [...] as of this encounter (statuses as of 07/18/2023) Resolved Problems Problem Noted Date Diagnosed Date [...] disorder 02/15/2012 09/03/2017 Genetic Sleep Disorder Resea [facility] Other*[id number] 06/26/2011 12/08/2015 EXAMINATION OF PARTICIPANT I N CLINICAL TRIAL-Genomics 06/04/2009 08/20/2009 Overview: Renamed Per Clinical Trials Billing Project. Study Titile: Genomic Markers for Patients with Cardiovascular Disease Project #[id number] PI: Radha Yepez MD Please call [phone] with study related questions GENOMICS CARDIO RESEARCH OTHER*[id number] 06/04/2009 06/13/2016 Overview: Renamed Per Clinical Trials Billing Project. Study Titile: Genomic Markers for Patients with Cardiovascular Disease Project #[id number] PI: Radha Yepez MD Please call [phone] with study related questions Benign neoplasm of [...] as of this encounter (statuses as of 07/18/2023) Immunizations Name Administration Dates Next Due COVID-19 [...] 08/17/2023 1:20 PM EDT Office Visit Neurology [facility] [place] [address] [place] [address] Shantel Mc PA-C [address] [place] [address] [address] 09/28/2023 12:45 PM EDT Office Visit [place] [facility] [place] [address] [place] [address] [address] Mitchell Mack MD [address] [place] [address] 11/05/2023 1:00 PM EDT Office Visit [facility] [address] [place] [facility] [place] [phone] Kaz Robledo MD [address] [place] [facility] [place] [address] 03/18/2024 3:00 PM EST Office Visit Cardiology, [facility] [address] [facility] [place] [address] Marcia Collins CRNP [address] [place] [address] Pending Results Name Type Priority Associated Diagnoses Date /Time URINALYSIS, REFLEX TO MICROSCOPIC Lab Routine Urinary urgency 07/18/2023 12:04 PM EDT ALBUMIN / CREATININE RATIO, URINE Lab Routine HTN, goal below 140/90 07/18/2023 12:04 PM EDT Scheduled Procedures Name Priority Associated [...] 09/05/2022, Additional history exists HbA1c 07/16/2024 07/17/2023, 0305/2022, 08/23/2021, Additional history exists Albumin/Creatinine Ratio 09/29/2025 09/29/2022 DTaP,Tdap,and Td Vaccines [...] as of this encounter Visit Diagnoses Diagnosis Urinary urgency Urgency of urination HTN, goal below 140/90 Unspecified essential hypertension documented in this encounter Care Teams Career Counselor Relationship Specialty Start Date End Date Kaz Robledo MD [address] [place] [address] PCP - General Family Medicine 03/05/17 documented as of this encounter
--- OUTSIDE RECORDS SUMMARY | 2023-10-19 07:24 | External Medical Summary | Summary of Care ---
Author Name Unknown Organization [facility] Address [address] [facility] [address] Phone [phone] Care Team Providers Care Kettle Girl Name Role Phone Kaz Robledo MD Primary Care Provider +1- [phone] Reason for Visit * Reason Comments Follow Up Encounter Details Date Type Department Care Team (Late st Contact Info) Description 07/17/2023 3:00 PM EDT Office Visit Cardiology, [facility] [address] [place] [address] Marcia Collins CRNP [address] [place] [address] Coronary artery disease involving [place] coronary artery of [place] heart without angina pectoris*; HTN, goal below 140/90; Dyslipidemia, goal LDL below 100; Urinary urgency Allergies Active Allergy Reactions Criticality Noted Date Comments Atorvastatin Muscle pain 12/11/2016 Bee Stings 02/21/1999 Hives,intense itching,edema documented as of this encounter (statuses as of 07/17/2023) Medications Medication Sig Dispensed Refills Start Date [...] 420 MG/3.5ML Subcutaneous Solution Cartridge (Repatha Pushtronex System)Indications :Dyslipidemia, goal LDL below 100,Chronic coronary artery disease,PAD (peripheral artery disease) ([facility]) INJECT 420 MG UNDER THE [...] 24 Hour (Imdur)Indications :Coronary artery disease involving [place] coronary artery of [place] heart without angina pectoris,Chronic coronary artery disease [...] for 10 days. 30 Capsule 0 07/16/2023 Active documented as of this encounter (statuses as of 07/17/2023) Active Problems Problem Noted Date Diagnosed Date [...] as of this encounter (statuses as of 07/17/2023) Resolved Problems Problem Noted Date Diagnosed Date [...] disorder 02/15/2012 09/03/2017 Genetic Sleep Disorder Resea [facility] Other*[id number] 06/26/2011 12/08/2015 EXAMINATION OF PARTICIPANT I N CLINICAL TRIAL-Genomics 06/04/2009 08/20/2009 Overview: Renamed Per Clinical Trials Billing Project. Study Titile: Genomic Markers for Patients with Cardiovascular Disease Project #[id number] PI: Radha Yepez MD Please call [phone] with study related questions GENOMICS CARDIO RESEARCH OTHER*[id number] 06/04/2009 06/13/2016 Overview: Renamed Per Clinical Trials Billing Project. Study Titile: Genomic Markers for Patients with Cardiovascular Disease Project #[id number] PI: Radha Yepez MD Please call [phone] with study related questions Benign neoplasm of [...] as of this encounter (statuses as of 07/17/2023) Immunizations Name Administration Dates Next Due COVID-19 mRNA, LNP-s, No Pre serve, 2-Dose Series (Moderna) 07/02/2020,06/03/2020 COVID-19, mRNA, LNP-s, PF, B ooster, 100mcg/0.5mg (Moderna) 10/06/2021,03/02/2021 Covid-19, Mrna, Lnp-s, Pf, B ivalent, 30 Mcg, IM, 12 yrs and above ([employer]) 02/15/2022 H1N1 2009 Influenza, IM 05/10/2009 Pneumococcal [...] Sign Reading Time Taken Comments Blood Pressure 146/74 07/17/2023 2:53 PM EDT Pulse 72 07/17/2023 2:53 PM EDT Temperature - - Respiratory Rate 16 07/17/2023 2:53 PM EDT Oxygen Saturation - - Inhaled Oxygen Concentration - - Weight 93.9 kg (207 lb) 07/17/2023 2:53 PM EDT Height - - Body Mass Index 29.7 07/16/2023 2:20 PM EDT documented in this encounter Progress Notes * Marcia Collins CRNP - 07/17/2023 3:00 PM EDT 07/17/2023 Cardiology Follow Up Primary Quantitative Manager: JAGDISH; formerly Dr. Pringle Cardiac Problems: 1. Ischemic heart disease with chronic total occlusion of the proximal LAD with etpkn-hr-kcir collaterals and a 50% diffuse mid RCA stenosis with preserved LV systolic function. 2. History of postprandial angina resolved. 3. Carotid occlusive disease. 4. Hypertension. 5. Hyperlipidemia. 6. Erectile dysfunction. 7. Peripheral arterial disease. 8. Subarachnoid/subdural hematoma. 9. History of intolerance to atorvastatin. HPI: Landen Camacho is a 78 year old male presents for routine cardiology follow up. Last seen in the office by the undersigned on 03/13/23. He had noted ongoing flucuations in his blood pressure at that time. He had also complained of an episode of chest pain that had happened the day prior to his appointment convinced he had had a heart attack, refused to go the ED as recommended by nursing triage. Had taken one SL NTG with no relief. As a result EKG was obtained which showed noacute changes, He was ordered a nuclear stress test and echocardiogram. He presents today feeling poor. He recently saw his PCP for acute URI symptoms. His resp. Panel wasnegative. He was prescribed Amoxicillin. Patient also endorses urinary urgency and frequency, but no dysuria. He has been feeling off, but denies doing any recent urine specimen. Patient has brought his BP log with him. Consistently above target, but discovered his readings arealways before medications. Patient also did not take his medications today as he thought we would want to see what it looked like. BP here is slightly above target. Denies any chest pain pressure, palpitations. Under a lot of stress from moving his to anothernursing home. REVIEW OF SYSTEMS: See HPI for pertinent [...] with Infusor 420 MG/3.5ML Subcutaneous Solution Cartridge ([employer] Pushtronex System) INJECT 420 MG UNDER THE [...] total occlusion of the proximal LAD with nzzh-vq-exqiz collaterals with 50% diffuse mid RCA Depressive disorder, not elsewhere classified Dyslipidemia, goal to be determined Other acute sinusitis Subdural hemorrhage (HCC) Family History Problem Relation Age of Onset No Past Hx Mother Lived until 86 Mental Disorder Father "black lung", currency examiner No Past Hx Son Asthma Daughter ? Other (AAA) Daughter Denies FH of AAA Social History Socioeconomic History Marital status: Number of children: 2 Occupational History Comment: unemployed Tobacco Use Smoking status: Former Current packs/day: 0.00 Average packs/day: 0.8 packs/day for 30.0 years (22.5 ttl pk-yrs) Types: Cigarettes Start date: 05/07/1972 Quit date: 05/07/2002 Years since quittin.2 Passive exposure: Past Smokeless tobacco: Never Tobacco comments: no smoking since 2002 Vaping Use Vaping Use: Never used Substance and Sexual Activity Alcohol use: No Drug use: No Sexual activity: Yes Partners: Female Social History Narrative Works at [employer] in [place] Social Determinants of Health Food Insecurity: No Food Insecurity (01/22/2023) Hunger Vital Sign Worried About Running Out of Food in the Last Year: Never true Ran Out of Food in the Last Year: Never true OBJECTIVE/PHYSICAL EXAMINATION: BP 146/74 | Pulse 72 | Resp 16 | Wt 93.9 kg (207 lb) | BMI 29.70 kg/m | BSA 2.15 m General: No acute distress. A+Ox3. HEENT: [...] old male 1. Coronary artery disease involving [place] coronary artery of [place] heart without angina pectoris -No recent chest pain, pressure or palpitations -Educated patient on monitoring of BP and encouraged him to continue current medication therapies. -Continue Amlodipine, Terazosin, Imdur, Toprol xl, Lisinopril, and ASA 2. HTN, goal below 140/90 -Slightly above target today but patient did not take his medications. -advised patient he should always take his medications prior to appointments because we are lookingto assess his response to the medication therapies. -Discussed proper monitoring of blood pressures, encouraging keeping a log of readings that are 2 hours after morning medications. -Also discussed hold parameters; however, advised patient that he has only even had one SBP less than 90mmHg and so the need for holding is unlikely. 3. Dyslipidemia, goal LDL below 100 -Intolerant to statins, Tolerating repatha 4. Urinary urgency -on going for several days and just "does not feel well". Also reports associated frequency, but nodysuria - URINALYSIS, REFLEX TO MICROSCOPIC; Future DISPOSITION: Follow up 6 months or if symptoms worsen/fail to improve. All questions were answered to the patients satisfaction. Patient advised to report to ED with any and all emergencies. The patient agrees to the above plan and will call with additional questions or concerns. FREDERIC Benton Cardiology, [facility] [address] [place] [address] I spent a total of 41 minutes on the date of service in preparation, delivery, and documentation ofthe care provided to Landen Camacho excluding any time spent in the performance of separately billed services. This chart was completed in part utilizing [employer] Speech Voice Recognition Software. Grammatical errors, random [...] documented in this encounter Nursing Notes * La Duggan LPN - 07/17/2023 2:52 PM EDT Examination Room: 3 Name: Landen Camacho Date of : 1945 Reason for Visit: Follow up Problems/Concerns: "Under a lot of stress" Interim Hosp(s): denies Chest Pain/SOB: denies MyChart Discussed: ALREADY ACTIVE Patient was instructed to not get up on the exam table until directed and assisted by their provider; patient is to remain seated in the chair/ wheelchair/ exam table for fall prevention and safety reasons. Patient is aware staff will assist stepping down off exam table with personnel. documented in this encounter Plan of Treatment Upcoming Encounters Date Type Department Care Team (Late st Contact Info) Description 08/17/2023 1:20 PM EDT Office Visit [facility] [address] [facility] [id number] Shantel Mc PA-C [address] [facility] [place], [place] [address] 09/28/2023 12:45 PM EDT Office Visit Dermatology [facility] [address] [facility] [place] [address] Mitchell Mack MD [address] [facility] [place], [place] [address] 11/05/2023 1:00 PM EDT Office Visit Family [facility] [address] [place] [phone] Kaz Robledo MD [address] [place] [address] 03/18/2024 3:00 PM EST Office Visit Cardiology, [facility] [address] [facility] [place] [address] Marcia Collins CRNP [address] [facility] [place] [address] Scheduled Orders Name Type Priority Associated Diagnoses Orde r Schedule URINALYSIS, REFLEX TO MICROSCOPIC Lab Routine Urinary urgency Expected: 07/17/2023, Expires: 07/16/2024 Scheduled Procedures Name Priority Associated Diagnoses Date/Ti me COLONOSCOPY FLEXIBLE PROXIMAL DIAGNOSTIC Recall History of colon polyps Health Maintenance Due Date Last Done Comments Alpha-1 Antitrypsin 1963 COLONOSCOPY-ANNUAL AGES 18-100 03/20/2020 03/20/2019, 03/20/2019, 10/15/2017, Additional history exists COVID-19 Vaccine (2022- season) 2023 02/15/2022, 10/06/2021, 03/02/2021, Additional history exists *COPD SEVERITY VERIFIED BY PFT 05/28/2023 HbA1c 07/06/2023 07/05/2022, 0401/2022, 06/27/2016, Additional history exists GFR 09/20/2023 09/19/2022, [...] Visit Diagnoses Diagnosis Coronary artery disease involving [place] coronary artery of [place] heart without angina pectoris- Primary HTN, goal below 140/90 Unspecified essential hypertension Dyslipidemia, goal LDL below 100 Other and unspecified hyperlipidemia Urinary urgency Urgency of urination documented in this encounter Care Teams Kettle Girl Relationship Specialty Start Date End Date Kaz Robledo MD [address] [place] [address] PCP - General Family Medicine 03/05/17 documented as of this encounter
--- OUTSIDE RECORDS SUMMARY | 2023-10-19 07:24 | External Medical Summary ---
Author Name Unknown Address Unknown Organization K01:[facility] [facility] [address] [place] [address] Laboratory Report Ordering Provider Test Date Status XENIA KERR 07/17/2023 15:56:29 Final Observation Date Value Abnormality Reference (Units ) Status BUN 07/17/2023 15:56:29 11 6-20 (mg/dL) Final Creatinine 07/17/2023 15:56:29 0.9 0.6-1.2 (mg/dL) Final Glomerular filtration rate/1.73 sq M.predicted [Volume Rate/Area] in Serum, Plasma or Blood by Creatinine-based formula (CKD-EPI) 07/17/2023 15:56:29 86 >=60 (mL/min) Final eGFR is calculated based on the CKD-EPI 2020 equation SODIUM 07/17/2023 15:56:29 141 135-146 (m mol/L) Final Potassium 07/17/2023 15:56:29 4.2 3.5-5.1 (m mol/L) Final Cl 07/17/2023 15:56:29 103 98-107 (mm ol/L) Final CO2 07/17/2023 15:56:29 25 22-32 (mmo l/L) Final Anion gap 07/17/2023 15:56:29 13 7-15 (mmol /L) Final Glucose 07/17/2023 15:56:29 90 70-120 (mg /dL) Final Calcium 07/17/2023 15:56:29 9.7 8.4-10.2 ( mg/dL) Final Performing Location [facility] [place] [facility] [address] [place] [address]
--- OUTSIDE RECORDS SUMMARY | 2023-10-19 07:24 | External Medical Summary ---
Author Name Unknown Address Unknown Organization K01:LABORATORY [facility] - [address] [facility] [address] Laboratory Report Ordering Provider Test Date Status XENIA KERR 07/16/2023 15:08:14 Final Observation Date Value Abnormality Reference (Units ) Status SARS Coronavirus 2 07/16/2023 15:08:14 Negative N egative Final No SARS-CoV2 Coronavirus RNA detected by PCR (amplified probe).
This automated test was developed and its performance characteristics determined by [facility]. It has not been cleared or approved by the U.S. Food and Drug Administration (FDA). FDA does not require this test to go thru premarket FDA review. This test is used for clinical purposes. It should not be regarded as investigational or for research. This laboratory is certified under the Clinical Laboratory Improvement Amendments (CLIA) as qualified to perform high complexity clinical laboratory testing.

This test is a nucleic acid amplification test (NAAT), a reverse transcriptase polymerase chain reaction (RT-PCR) test, or a Centers for Disease Control-acceptable equivalent. The test is performed in a high complexity Clinical Laboratory Improvement Amendments-(CLIA) certified laboratory. The test is acceptable for SARS-CoV-2 diagnosis, surveillance, and travel within the [place] and to most countries. Please check with local testing authorities about requirements before travel.

The validation of bronchial specimens, tracheal aspirates, and sputum for this assay was developed and performance characteristics determined by [facility]. The validation of alternate specimen types has not been cleared or approved by the U.S. Food and Drug Administration (FDA). It has been determined that such clearance or approval is not necessary. Influenza virus A RNA [Prese nce] in Specimen by SHAYY with probe detection 07/16/2023 15:08:14 Negative Negative Final No Influenza A RNA detected by PCR (amplified probe) Influenza virus B RNA [Prese nce] in Specimen by SHAYY with probe detection 07/16/2023 15:08:14 Negative Negative Final No Influenza B RNA detected by PCR (amplified probe) Respiratory syncytial virus RNA [Identifier] in Specimen by SHAYY with probe detection 07/16/2023 15:08:14 Negative Negative Final No Respiratory Syncytial Vir us RNA detected by PCR (amplified probe) Performing Location LABORATORY [address] [place]. [facility] [address]
--- OUTSIDE RECORDS SUMMARY | 2023-10-19 07:24 | External Medical Summary | Summary of Care ---
Author Name Unknown Organization [facility] Address [address] [facility] [place] [address] Phone [phone] Care Team Providers Care Frame Repairer Name Role Phone Kaz Robledo MD Primary Care Provider +1- [phone] Encounter Details Date Type Department Care Team (Late st Contact Info) Description 07/18/2023 Orders Only PATIENT PORTAL DO NOT DELETE THIS DEPT USED BY [place] [id number] Allergies Active Allergy Reactions Criticality Noted Date [...] with Infusor 420 MG/3.5ML Subcutaneous Solution Cartridge ([employer] Pushtronex System)Indications :Dyslipidemia, goal LDL below 100,Chronic coronary artery disease,PAD (peripheral artery disease) ([facility]) INJECT 420 MG UNDER THE SKIN [...] 24 Hour (Imdur)Indications :Coronary artery disease involving [place] coronary artery of [place] heart without angina pectoris,Chronic coronary artery [...] 09/03/2017 Genetic Sleep Disorder Resea [facility] Other*[id number] 06/26/2011 12/08/2015 EXAMINATION OF PARTICIPANT I N CLINICAL TRIAL-Genomics 06/04/2009 08/20/2009 Overview: Renamed Per Clinical Trials Billing Project. Study Titile: Genomic Markers for Patients with Cardiovascular Disease Project #[id number] PI: Radha Yepez MD Please call [phone] with study related questions GENOMICS CARDIO RESEARCH OTHER*[id number] 06/04/2009 06/13/2016 Overview: Renamed Per Clinical Trials Billing Project. Study Titile: Genomic Markers for Patients with Cardiovascular Disease Project #[id number] PI: Radha Yepez MD Please call [phone] with study related questions Benign neoplasm of [...] 08/17/2023 1:20 PM EDT Office Visit Neurology [facility] [address] [place] [address] Shantel Mc PA-C [address] [place] [address] 09/28/2023 12:45 PM EDT Office Visit Dermatology [facility] [address] [place] [address] Mitchell Mack MD [address] [place] [address] 11/05/2023 1:00 PM EDT Office Visit [facility] [address] [place] [facility] [place] [phone] Kaz Robledo MD [address] [place], [place] [phone] 03/18/2024 3:00 PM EST Office Visit Cardiology, [facility] [address] [place] [address] Marcia Collins CRNP [address] [place] [address] Scheduled Procedures Name Priority Associated Diagnoses Date/Ti [...] 05/2022, 08/23/2021, Additional history exists Albumin/Creatinine Ratio 09/29/2025 [...] filedocumented as of this encounter Care Teams Frame Repairer Relationship Specialty Start Date End Date Kaz Robledo MD [address] [facility] [place] [address] PCP - General Family Medicine 03/05/17 documented as of this encounter
--- OUTSIDE RECORDS SUMMARY | 2023-10-19 07:24 | External Medical Summary ---
Author Name Unknown Address Unknown Organization K01:[facility] [place] [address] [place] [address] Laboratory Report Ordering Provider Test Date Status USHAXENIA 07/18/2023 12:04:49 Final Normal: <30 mg/g creatinine< br/>High: 30-300 mg/g creatinine
Very High: >300 mg/g creatinine
Nephrotic: >2200 mg/g creatinine Observation Date Value Abnormality Reference (Units ) Status Albumin, Urine 07/18/2023 12:04:49 1.21 (mg/dL) Final Creatinine, Urine 07/18/2023 12:04:49 123 (mg/dL) Final Albumin/Creatinine [Mass Ratio] in Urine 07/18/2023 12:04:49 10 <30 (mg/g Creat) Final Performing Location [facility] [place] [address] [place] [address]
--- OUTSIDE RECORDS SUMMARY | 2023-10-19 07:24 | External Medical Summary | Summary of Care ---
Author Name Unknown Organization [facility] Address [address] [place] [address] Phone [phone] Care Team Providers Care Soa Architect Name Role Phone Kaz Robledo MD Primary Care Provider +1- [phone] Reason for Visit * Reason Comments Outpatient Testing Encounter Details Date Type Department Care Team (Late st Contact Info) Description 07/17/2023 4:20 PM EDT Laboratory [facility], [facility] [address] [facility] [phone] [facility] [address] [place] [address] [employer] Other*[id number]; Prediabetes; HTN, goal below 140/90 Allergies Active Allergy [...] with Infusor 420 MG/3.5ML Subcutaneous Solution Cartridge ([employer] Pushtronex System)Indications :Dyslipidemia, goal LDL below 100,Chronic coronary artery disease,PAD (peripheral artery disease) ([facility]) INJECT 420 MG UNDER THE SKIN [...] 24 Hour (Imdur)Indications :Coronary artery disease involving [place] coronary artery of [place] heart without angina pectoris,Chronic coronary artery disease [...] disorder 02/15/2012 09/03/2017 Genetic Sleep Disorder Resea [facility] Other*[id number] 06/26/2011 12/08/2015 EXAMINATION OF PARTICIPANT I N CLINICAL TRIAL-Genomics 06/04/2009 08/20/2009 Overview: Renamed Per Clinical Trials Billing Project. Study Titile: Genomic Markers for Patients with Cardiovascular Disease Project #[id number] PI: Radha Yepez MD Please call [phone] with study related questions GENOMICS CARDIO RESEARCH OTHER*[id number] 06/04/2009 06/13/2016 Overview: Renamed Per Clinical Trials Billing Project. Study Titile: Genomic Markers for Patients with Cardiovascular Disease Project #[id number] PI: Radha Yepez MD Please call [phone] with study related questions Benign neoplasm of [...] 08/17/2023 1:20 PM EDT Office Visit Neurology [facility] [address] [place] [address] Shantel Mc PA-C [address] [place] [address] [address] 09/28/2023 12:45 PM EDT Office Visit Dermatology [facility] [address] [place] [address] [address] Mitchell Mack MD [address] [place] [address] [address] 11/05/2023 1:00 PM EDT Office Visit Family [facility] [place] [address] [place] [address] Kaz oRbledo MD [address] [place] [address] 03/18/2024 3:00 PM EST Office Visit Cardiology, [facility] [address] [facility] [place] [address] Marcia Collins CRNP [address] [place] [address] Pending Results Name Type Priority Associated Diagnoses Date /Time MYCODE SUBSEQUENT ADULT Lab Routine [employer] Other*[id number] 07/17/2023 3:56 PM EDT HEMOGLOBIN A1C Lab Routine Prediabetes 07/17/2023 3:56 PM EDT BASIC METABOLIC PANEL Lab Routine HTN, goal below 140/90 07/17/2023 3:56 PM EDT MYCODE SST1 Lab Routine [employer] Other*[id number] 07/17/2023 3:56 PM EDT MYCODE SST2 Lab Routine [employer] Other*[id number] 07/17/2023 3:56 PM EDT Scheduled Procedures Name Priority Associated [...] 06/27/2016, Additional history exists GFR 09/20/2023 09/19/2022, 0506/2022, 07/05/2022, Additional history exists Depression Screening 01/10/2024 [...] as of this encounter Visit Diagnoses Diagnosis [employer] Other*[id number] Prediabetes Other abnormal glucose HTN, goal below 140/90 Unspecified essential hypertension documented in this encounter Care Teams Soa Architect Relationship Specialty Start Date End Date Kaz Robledo MD [address] [place] [address] PCP - General Family Medicine 03/05/17 documented as of this encounter
--- OUTSIDE RECORDS SUMMARY | 2023-10-19 07:24 | External Medical Summary | Summary of Care ---
Author Name Unknown Organization [facility] Address [address] [facility] [place] [address] Phone [phone] Care Team Providers Care Spring Bender Name Role Phone Kaz Robledo MD Primary Care Provider +1- [phone] Reason for Visit * Reason Onset Date Comments Other 06/11/2023 Medication arroyo e Encounter Details Date Type Department Care Team (Latest Contact Info) Description 06/11/2023 10:00 AM EST Scheduled Telephone Ancillary Department, [place] [address] [place] [address] [place], Nurse Follow Up Phone Call Schedule [address] [place] [address] Essential tremor Allergies Active Allergy Reactions Criticality Noted Date Comments Atorvastatin Muscle pain 12/11/2016 Bee Stings 02/21/1999 Hives,intense itching,edema documented as of this encounter (statuses as of 06/12/2023) Medications Medication Sig Dispensed Refills Start Date [...] Active Diclofenac Sodium 1 % External GelIndications:Ac elim ira pain of right shoulder Apply 4 gm [...] with Infusor 420 MG/3.5ML Subcutaneous Solution Cartridge ([employer] Pushtronex System)Indication s:Dyslipidemia, goal LDL below 100,Chronic coronary artery disease,PAD (peripheral artery disease) ([facility]) INJECT 420 MG UNDER THE SKIN [...] at bedtime. 90 Tablet 3 04/24/2023 Active clonazePAM 0.5 MG Oral Tablet (KlonoPIN)Indicat ions:Sleep disorder TAKE 1 TO 2 TABLETS BY MOUTH ONCE DAILY AT BEDTIME FOR SLEEP 60 Tablet 0 05/22/2023 Active Fluocinonide 0.05 % External SolutionIndicatio ns:Seborrheic dermatitis Apply to scalp daily Sunday thru as needed for redness and flaking 60 mL 2 05/25/2023 Active Ketoconazole 2 % External Shampoo (Nizoral)Indicati ons:Seborrheic dermatitis Apply to scalp 2-3 x's per week. 360 mL 5 05/25/2023 Active Isosorbide Mononitrate ER 30 MG Oral Tablet Extended Release 24 Hour (Imdur)Indication s:Coronary artery disease involving [place] coronary artery of [place] heart without angina pectoris,Chronic coronary artery disease TAKE ONE TABLET BY MOUTH EVERY DAY IN THE MORNING 90 Tablet 3 05/30/2023 Active Topiramate 15 MG Oral Capsule Sprinkle (Topamax Sprinkle)Indicati ons:Essential tremor Take 1 Capsule by mouth in the morning and 1 Capsule at noon and 1 Capsule in the evening. Sprinkle contents of capsule on food.. 270 Capsule 1 06/12/2023 Active Topiramate 15 MG Oral Capsule Sprinkle (Topamax Sprinkle)Indicati ons:Essential tremor Take 1 Capsule by mouth in the morning and 1 Capsule before bedtime. Sprinkle contents of capsule on food.. 60 Capsule 5 05/25/2023 Discontinu ed(Refill) documented as of this encounter (statuses as of 06/12/2023) Active Problems Problem Noted Date Diagnosed Date [...] as of this encounter (statuses as of 06/12/2023) Resolved Problems Problem Noted Date Diagnosed Date [...] disorder 02/15/2012 09/03/2017 Genetic Sleep Disorder Resea [facility] Other*[id number] 06/26/2011 12/08/2015 EXAMINATION OF PARTICIPANT I N CLINICAL TRIAL-Genomics 06/04/2009 08/20/2009 Overview: Renamed Per Clinical Trials Billing Project. Study Titile: Genomic Markers for Patients with Cardiovascular Disease Project #[id number] PI: Radha Yepez MD Please call [phone] with study related questions GENOMICS CARDIO RESEARCH OTHER*[id number] 06/04/2009 06/13/2016 Overview: Renamed Per Clinical Trials Billing Project. Study Titile: Genomic Markers for Patients with Cardiovascular Disease Project #[id number] PI: Radha Yepez MD Please call [phone] with study related questions Benign neoplasm of [...] as of this encounter (statuses as of 06/12/2023) Immunizations Name Administration Dates Next Due COVID-19 [...] Date Smoking Tobacco: Former Cigarettes 0.8 30 Q uit: 05/07/2002 Passive Smoke Exposure: Past Smokeless Tobacco: [...] encounter Miscellaneous Notes * Telephone Encounter - Rica Cruz LPN - 06/12/2023 6:15 PM EST MYG sent * Telephone Encounter - Isatu Campos PA-C - 06/12/2023 4:46 PM EST Sent with dose increase Essential tremor - Topiramate 15 MG Oral Capsule Sprinkle (Topamax Sprinkle); Take 1 Capsule by mouth in the morningand 1 Capsule at noon and 1 Capsule in the evening. Sprinkle contents of capsule on food.. Isatu Campos PA-C 06/12/2023 4:46 PM * Telephone Encounter - Courtney Spencer LPN - 06/12/2023 4:20 PM EST Patient returned call. Informed of message. Verbalized understanding. Tremor are still there with use of Topiramate. He often feels he needs a second dose in the afternoon before bedtime dose is due. No side effects. He would like to increase if agreeable sent to mail order pharm. Please advise. * Telephone Encounter - Susan Costello LPN - 06/12/2023 3:38 PM EST How is tremor? Is it lessen the med? Any side affects? Dose ok or go up? Left message for pt to call back. documented in this encounter Plan of Treatment Upcoming Encounters Date Type Department Care Team (Late st Contact Info) Description 07/17/2023 3:00 PM EDT [facility] [address] [place] [address] Marcia Collins CRNP [address] [facility] [place] [address] 08/17/2023 1:20 PM EDT Office Visit Neurology [facility] [address] [place] [address] Shantel Mc PA-C [address] [place] [address] 09/28/2023 12:45 PM EDT Office Visit Dermatology [facility] [address] [place] [address] Mitchell Mack MD [address] [place] [address] 11/05/2023 1:00 PM EDT Office Visit [facility] [address] [place] [address] Kaz Robledo MD [address] [place] [address] Scheduled Procedures Name Priority Associated Diagnoses Date/Ti [...] ASSESSMENT COMPLETED IN PAST YEAR FOR COPD 05/25/2024 05/25/2023 Albumin/Creatinine Ratio 09/29/2025 09/29/2022 DTaP,Tdap,and Td Vaccines [...] as of this encounter Visit Diagnoses Diagnosis Essential tremor Essential and other specified forms of tremor documented in this encounter Care Teams Spring Bender Relationship Specialty Start Date End Date Kaz Robledo MD [address] [place] [address] PCP - General Family Medicine 03/05/17 documented as of this encounter
--- OUTSIDE RECORDS SUMMARY | 2023-10-19 07:25 | External Medical Summary | Summary of Care ---
Author Name Unknown Organization [facility] Address [address] [place] [address] Phone [phone] Care Team Providers Care Pockets And Pieces Necktie Operator Name Role Phone Kaz Robledo MD Primary Care Provider +1- [phone] Reason for Visit * Reason Comments Acute Encounter Details Date Type Department Care Team (Latest Contact Info) Description 05/25/2023 9:40 AM EST Office Visit [facility] [address] [place] [phone] Isatu Campos PA-C [address] [place] [address] Essential tremor*; Seborrheic dermatitis; Chronic obstructive pulmonary disease, unspecified COPD type (HCC); Major depressive disorder, recurrent episode, mild (HCC); Other atherosclerosis of [place] arteries of extremities, bilateral legs (HCC); Adjustment disorder with mixed anxiety and depressed mood; HTN, goal below 140/90; Coronary artery disease involving [place] coronary artery of [place] and [place] heart without angina pectoris; Dyslipidemia, goal LDL below 100; Problems related to living alone Allergies Active Allergy Reactions Criticality Noted Date Comments Atorvastatin Muscle pain 12/11/2016 Bee Stings 02/21/1999 Hives,intense itching,edema documented as of this encounter (statuses as of 05/25/2023) Medications Medication Sig Dispensed Refills Start Date [...] Active Diclofenac Sodium 1 % External GelIndications:Ac [facility] pain of right shoulder Apply 4 gm [...] with Infusor 420 MG/3.5ML Subcutaneous Solution Cartridge ([employer] Pushtronex System)Indication s:Dyslipidemia, goal LDL below 100,Chronic coronary artery disease,PAD (peripheral artery disease) (HCC) INJECT 420 MG UNDER THE SKIN EVERY MONTH -- ADMINISTER OVER 5 MINUTES -- REMOVE FROM REFRIGERATOR 45 MINUTES PRIOR TO INJECTION 10.5 mL 3 08/09/2022 4 Active Isosorbide Mononitrate ER 30 MG Oral Tablet Extended Release 24 Hour (Imdur)Indication s:Coronary artery disease involving [place] coronary artery of [place] heart without angina pectoris,Chronic coronary artery disease TAKE ONE TABLET BY MOUTH EVERY DAY IN THE MORNING 90 Tablet 3 07/03/2022 4 Active Cilostazol 100 MG Oral Tablet [...] 1 Tablet by mouth in the morning. In the morning.. 90 Tablet 3 04/24/2023 Active Metoprolol Succinate [...] per week. 360 mL 5 05/25/2023 Active Topiramate 15 MG Oral Capsule Sprinkle (Topamax Sprinkle)Indicati ons:Essential tremor Take 1 Capsule by mouth in the morning and 1 Capsule before bedtime. Sprinkle contents of capsule on food.. 60 Capsule 5 05/25/2023 Active ketoconazole 2 % shampooIndication s:Seborrheic dermatitis Apply to scalp 2-3 x's per week. 360 mL 5 07/22/2019 4 Discontinue d(Refill) Fluocinonide 0.05 % External SolutionIndicatio ns:Seborrheic dermatitis APPLY TO SCALP DAILY SUNDAY THRU SUNDAY NEEDED FOR REDNESS AND FLAKING 60 mL 2 05/04/2021 4 Discontinue d(Refill) documented as of this encounter (statuses as of 05/25/2023) Active Problems Problem Noted Date Diagnosed Date [...] as of this encounter (statuses as of 05/25/2023) Resolved Problems Problem Noted Date Diagnosed Date [...] disorder 02/15/2012 09/03/2017 Genetic Sleep Disorder Resea [facility] Other*[id number] 06/26/2011 12/08/2015 EXAMINATION OF PARTICIPANT I N CLINICAL TRIAL-Genomics 06/04/2009 08/20/2009 Overview: Renamed Per Clinical Trials Billing Project. Study Titile: Genomic Markers for Patients with Cardiovascular Disease Project #[id number] PI: Radha Yepez MD Please call [phone] with study related questions GENOMICS CARDIO RESEARCH OTHER*[id number] 06/04/2009 06/13/2016 Overview: Renamed Per Clinical Trials Billing Project. Study Titile: Genomic Markers for Patients with Cardiovascular Disease Project #[id number] PI: Radha Yepez MD Please call [phone] with study related questions Benign neoplasm of [...] as of this encounter (statuses as of 05/25/2023) Immunizations Name Administration Dates Next Due COVID-19 [...] Sign Reading Time Taken Comments Blood Pressure 128/73 05/25/2023 9:42 AM EST shyla e cuff Pulse 57 05/25/2023 9:35 AM EST Temperature 36.8 C (98.2 F) 05/25/2023 9:35 AM ES T Respiratory Rate 16 05/25/2023 9:35 AM EST Oxygen Saturation 97% 05/25/2023 9:35 AM EST Inhaled Oxygen Concentration - - Weight 95.4 kg (210 lb 6.4 oz) 05/25/2023 9:35 A M EST Height - - Body Mass Index 30.19 04/24/2023 4:08 PM EST documented in this encounter Progress Notes * Isatu Campos PA-C - 05/25/2023 9:46 AM EST Images from the original note were not included. History of Present Illness Landen Camacho is a 78 year old male that presents for Acute Here as his tremor is so bad he cannot take it anymore. Has seen neurology and they do not feel he has Parkinson's - he has essential tremor He has really variable blood pressure. Sometimes he his high and other times he goes really low. He is to the point where he really wants to try to start a medication. He was in to be seen - was sent to [facility], they took his bp and would not treat him as he was so hypertensive. Physical Exam Vitals: 05/25/23 0935 05/25/23 0942 Temp: 36.8 C (98.2 F) Pulse: 57 Resp: 16 SpO2: 97% BP: 120/60 128/73 BP Readings from Last 3 Encounters: 05/25/23 128/73 04/24/23 132/80 03/13/23 124/68 Wt Readings from Last 3 Encounters: 05/25/23 95.4 kg (210 lb 6.4 oz) 04/24/23 95.2 kg (209 lb 12.8 oz) 03/13/23 94.3 kg (208 lb) BMI Readings from Last 3 Encounters: 05/25/23 30.19 kg/m 04/24/23 30.10 kg/m 03/13/23 29.84 kg/m Ht Readings from Last 3 Encounters: 04/24/23 1.778 m (5' 10") 01/09/23 1.778 m (5' 10") 09/19/22 1.778 m (5' 10") General: alert, healthy, and no distress Head: Normocephalic, No masses, lesions, tenderness or abnormalities Heart: regular rate & rhythm, no gallops, S-1 normal, and S-2 normal Lungs: chest symmetric with normal AP diameter, no chest deformities noted, no chest wall tenderness, lungs clear to auscultation Extremities: less than 2 second capillary refill, no joint deformities, effusion, or inflammation, essential tremor noted Skin: skin color, texture, turgor are normal, no rashes or significant lesions Assessment and Plan Essential tremor (Primary) - Topiramate 15 MG Oral Capsule Sprinkle (Topamax Sprinkle); Take 1 Capsule by mouth in the morningand 1 Capsule before bedtime. Sprinkle contents of capsule on food.. Seborrheic dermatitis - Fluocinonide 0.05 % External Solution; Apply to scalp daily Sunday thru as needed for redness and flaking - Ketoconazole 2 % External Shampoo (Nizoral); Apply to scalp 2-3 x's per week. Chronic obstructive pulmonary disease, unspecified COPD type (HCC) = stable, no flares Major depressive disorder, recurrent episode, mild (HCC) - stable, improved Other atherosclerosis of [place] arteries of extremities, bilateral legs (HCC) - no recent issues, on pletal Adjustment disorder with mixed anxiety and depressed mood - improved HTN, goal below 140/90 - variable Coronary artery disease involving [place] coronary artery of [place] and [place] heart without angina pectoris - on pletal Dyslipidemia, goal LDL below 100 Labs current Problems related to living alone - Discussion with patient of risk and benefit of medication. also discussion of common side affects. patient counseled and is aware and wishes to purse this medication, agrees to call with any issues or concerns. Wrap-Up Bp is variable Track hydration to see if that is the culprit Time: I spent a total of 20-29 minutes (exact time 23 mins) on the date of service in preparation, delivery, and documentation of the care provided to Landen Camacho excluding any time spent in the performance of separately billed services. Isatu Campos PA-C 05/25/2023 10:03 AM documented in this encounter Nursing Notes * Susan Costello, STEVE - 05/25/2023 9:35 AM EST Pt in today for shakes in his arms since September. Seem to be getting worse documented in this encounter Plan of Treatment Upcoming Encounters Date Type Department Care Team (Late st Contact Info) Description 06/04/2023 11:00 AM EST Scheduled Telephone Ancillary Department, [place] [address] [place] [facility] [place] [address] [place], Nurse Follow Up Phone Call Schedule [address] [place] [facility] [place] [address] 07/17/2023 3:00 PM EDT Office Visit Cardiology, [facility] [place] [address] [facility] [place] [address] Marcia Collins CRNP [address] [facility] [place] [address] 08/17/2023 1:20 PM EDT Office Visit Neurology [facility] [address] [place] [address] Shantel Mc PA-C [address] [facility] [place] [address] 09/28/2023 12:45 PM EDT Office Visit Dermatology [facility] [address] [place] [address] Mitchell Mack MD [address] [facility] [place] [address] 11/05/2023 1:00 PM EDT Office Visit Family [facility], [place] [address] [place] [facility] [place] [id number] Kaz Robledo MD [address] [place] [facility] [place] [address] Scheduled Procedures Name Priority Associated Diagnoses Date/Ti me COLONOSCOPY FLEXIBLE PROXIMAL DIAGNOSTIC Recall History of colon polyps Health Maintenance Due Date Last Done Comments COLONOSCOPY-ANNUAL AGES 18-100 03/20/2020 03/20/2019, 03/20/2019, 10/15/2017, Additional history exists COVID-19 Vaccine (2022- season) 2023 02/15/2022, 10/06/2021, 03/02/2021, Additional history exists HbA1c 07/06/2023 07/05/2022, 08/05, 06/27/2016, Additional history exists GFR 09/20/2023 09/19/2022, 06/2022, 07/05/2022, Additional history exists Depression Screening 01/10/2024 01/09/2023 Albumin/Creatinine Ratio 09/29/2025 09/29/2022 DTaP,Tdap,and Td Vaccines [...] of this encounter Visit Diagnoses Diagnosis Essential tremor- Primary Essential and other specified forms of tremor Seborrheic dermatitis Seborrheic dermatitis, unspecified Chronic obstructive pulmonary disease, unspecified COPD type (HCC) Major depressive disorder, recurrent episode, mild (HCC) Major depressive disorder, recurrent episode, mild Other atherosclerosis of [place] arteries of extremities, bilateral legs (HCC) Adjustment disorder with mixed anxiety and depressed mood HTN, goal below 140/90 Unspecified essential hypertension Coronary artery disease involving [place] and [place] coronary artery of [place] and [place] heart without angina pectoris Dyslipidemia, goal LDL below 100 Other and unspecified hyperlipidemia Problems related to living alone documented in this encounter Care Teams Pockets And Pieces Necktie Operator Relationship Specialty Start Date End Date Kaz Robledo MD [address] [place] [address] PCP - General Family Medicine 03/05/17 documented as of this encounter
--- OUTSIDE RECORDS SUMMARY | 2023-10-19 07:25 | External Medical Summary | Summary of Care ---
Author Name Unknown Organization [facility] Address [address] [place] [address] Phone [phone] Care Team Providers Care Cement Side Laster Name Role Phone Usha Michaels MD Primary Care Provider [phone]- [phone] Reason for Visit * Reason Comments eRx-Medication Refill Encounter Details Date Type Department Care Team (Late st Contact Info) Description 05/21/2023 Refill [facility] [address] [place] [phone] Usha Michaels MD [address] [place] [address] Sleep disorder Allergies Active Allergy Reactions Criticality Noted Date Comments Atorvastatin Muscle pain 12/11/2016 Bee Stings 02/21/1999 Hives,intense itching,edema documented as of this encounter (statuses as of 05/22/2023) Medications Medication Sig Dispensed Refills Start Date [...] taking differently:Sublingual,Indications: reviewed exp date was exp 8/22 now pitched and new bottle will exp [...] mouth every other day. 0 8 Active ketoconazole 2 % shampooIndication s:Seborrheic dermatitis Apply to scalp 2-3 x's per week. 360 mL 5 0 Active Ketoconazole 2 % External CreamIndications: Seborrheic dermatitis Apply to face 2-3 x's per week. 30 g 4 0 Active Diclofenac Sodium 1 % External GelIndications:Ac sycuan pain of right shoulder Apply 4 gm [...] a day 850 g 1 1 Active Fluocinonide 0.05 % External SolutionIndicatio ns:Seborrheic dermatitis APPLY TO SCALP DAILY SUNDAY THRU SUNDAY NEEDED FOR REDNESS AND FLAKING 60 mL 2 1 Active Triamcinolone Acetonide 0.1 % External Cream (Aristocort)Indic ations:Hand erythema Apply topically to affected area 2 times a day. To affected area. 45 g 0 3 Active amLODIPine Besylate 10 MG Oral Tablet (Norvasc) TAKE ONE TABLET BY MOUTH EVERY MORNING 90 Tablet 3 3 08/10/19 24 Active Additional Information Patient taking differently: 10 mg Oral HS, Reported on 03/13/2023 Evolocumab with Infusor 420 MG/3.5ML Subcutaneous Solution Cartridge ([employer] Pushtronex System)Indication s:Dyslipidemia, goal LDL below 100,Chronic coronary artery disease,PAD (peripheral artery disease) (HCC) INJECT 420 MG UNDER THE SKIN EVERY MONTH -- ADMINISTER OVER 5 MINUTES -- REMOVE FROM REFRIGERATOR 45 MINUTES PRIOR TO INJECTION 10.5 mL 3 3 08/09/19 24 Active Isosorbide Mononitrate ER 30 MG Oral Tablet Extended Release 24 Hour (Imdur)Indication s:Coronary artery disease involving [place] coronary artery of [place] heart without angina pectoris,Chronic coronary artery disease TAKE ONE TABLET BY MOUTH EVERY DAY IN THE MORNING 90 Tablet 3 3 07/03/19 24 Active Cilostazol 100 MG Oral Tablet (Pletal) [...] morning. In the morning.. 90 Tablet 3 3 Active Metoprolol Succinate ER 25 MG Oral Tablet Extended Release 24 Hour (toPROL XL) Take 1 Tablet by mouth at bedtime. 90 Tablet 3 3 Active clonazePAM 0.5 MG Oral Tablet (KlonoPIN)Indicat ions:Sleep disorder TAKE 1 TO 2 TABLETS BY MOUTH ONCE DAILY AT BEDTIME FOR SLEEP 60 Tablet 0 4 Active clonazePAM 0.5 MG Oral Tablet (KlonoPIN)Indicat ions:Sleep disorder TAKE 1 TO 2 TABLETS BY MOUTH ONCE DAILY AT BEDTIME FOR SLEEP 60 Tablet 0 3 05/22/19 24 Discontinued documented as of this encounter (statuses as of 05/22/2023) Active Problems Problem Noted Date Diagnosed Date Anxiety 08/03/2022 Other atherosclerosis of marti ana [...] as of this encounter (statuses as of 05/22/2023) Resolved Problems Problem Noted Date Diagnosed Date [...] 09/03/2017 Genetic Sleep Disorder Resea [facility] Other*[id number] 06/26/2011 12/08/2015 EXAMINATION OF PARTICIPANT I N CLINICAL TRIAL-Genomics 06/04/2009 08/20/2009 Overview: Renamed Per Clinical Trials Billing Project. Study Titile: Genomic Markers for Patients with Cardiovascular Disease Project #[id number] PI: Radha Yepez MD Please call [phone] with study related questions GENOMICS CARDIO RESEARCH OTHER*[id number] 06/04/2009 06/13/2016 Overview: Renamed Per Clinical Trials Billing Project. Study Titile: Genomic Markers for Patients with Cardiovascular Disease Project #[id number] PI: Radha Yepez MD Please call [phone] with study related questions Benign neoplasm of [...] as of this encounter (statuses as of 05/22/2023) Immunizations Name Administration Dates Next Due COVID-19 mRNA, LNP-s, No Pre serve, 2-Dose Series ([employer]) 07/02/2020,06/03/2020 COVID-19, mRNA, LNP-s, PF, B ooster, 100mcg/0.5mg (Moderna) 10/06/2021,03/02/2021 Covid-19, Mrna, Lnp-s, Pf, B ivalent, 30 Mcg, IM, 12 yrs and above ([email or web address]) 02/15/2022 H1N1 2009 Influenza, IM 05/10/2009 Pneumococcal [...] Telephone Encounter - Usha Michaels MD - 05/22/2023 2:31 PM ESTSigned Prescriptions: Disp Refills clonazePAM 0.5 MG Oral Tablet (KlonoPIN) 60 Tab*0 Sig: TAKE 1 TO2 TABLETS BY MOUTH ONCE DAILY AT BEDTIME FOR SLEEPAuthorizing Provider: USHA MICHAELS--------- * Telephone Encounter - Saúl Root [facility] - 05/22/2023 1:45 PM EST Pending Prescriptions: Disp Refills clonazePAM 0.5 MG Oral Tablet [Pharmacy Me*60 Tab*0 Sig: TAKE 1 TO 2 TABLETS BY MOUTH ONCE DAILY AT BEDTIME FOR SLEEP * Telephone Encounter - Saúl Root [facility] - 05/22/2023 1:43 PM EST I have reviewed the patients controlled substance dispensing history in the Prescription Drug Monitoring Program in compliance with the [facility] regulations before prescribing a controlled substance. PDMP checked on 05/22/2023. Pending Prescriptions: Disp Refills clonazePAM 0.5 MG Oral Tablet (KlonoPIN) *60 Tab*0 Sig: TAKE 1 TO 2 TABLETS BY MOUTH ONCE DAILY AT BEDTIME FOR SLEEP Last Visit: 04/24/2023 (in office), Visit date not found (telemedicine) Next Visit: 11/05/2023 Date medication was last filled: 03/23/2023 Date medication is due for refill: 04/21/2023 Pharmacy: [id number] Is this request for a controlled substance? Yes and Urine Drug Screen Not completed Toxicology results: No results found. However, due to the size of the patient record, not all encounters were searched.Please check Results Review for a complete set of results. Please approve if appropriate. Thank You, Saúl Root, Pharm-D Clinical Pharmacist [facility] ([facility]) (Formerly [facility]) [phone] 05/22/2023, 1:43 PM documented in this encounter Plan of Treatment Upcoming Encounters Date Type Department Care Team (Late st Contact Info) Description 07/17/2023 3:00 PM EDT Office Visit Cardiology, [facility] [address] [place] [address] Marcia Collins CRNP [address] [address] 08/17/2023 1:20 PM EDT Office Visit Neurology [facility] [place] [address] [place] [address] Shantel Mc PA-C [address] [place] [address] 09/28/2023 12:45 PM EDT Office Visit Dermatology Asael Mar[facility] [place] [address] [facility] [place], [place] [address] Mitchell Mack MD [address] [facility] [place], [place] [address] 11/05/2023 1:00 PM EDT Office Visit [facility] [address] [place] [phone] Usha Michaels MD [address], [place] [phone] Scheduled Procedures Name Priority Associated Diagnoses Date/Ti [...] Diagnoses Diagnosis Sleep disorder Sleep disturbance, unspecified documented in this encounter Care Teams Cement Side Laster Relationship Specialty Start Date End Date Usha Michaels MD [address] [place] [address] PCP - General Family Medicine 03/05/17 documented as of this encounter
--- OUTSIDE RECORDS SUMMARY | 2023-10-19 07:25 | External Medical Summary | Summary of Care ---
Author Name Unknown Organization [facility] Address [address] [place] [address] Phone [phone] Care Team Providers Care Software Manager Name Role Phone Kaz Robledo MD Primary Care Provider [phone]- [phone] Reason for Visit * Reason Onset Date Comments Follow Up 06/04/2023 Encounter Details Date Type Department Care Team (Late st Contact Info) Description 06/04/2023 11:00 AM EST Scheduled Telephone Ancillary Department, [place] [address], [place] [phone] [place], Nurse Follow Up Phone Call Schedule [address] [place] [address] Allergies Active Allergy Reactions Criticality Noted Date Comments Atorvastatin Muscle pain 12/11/2016 Bee Stings 02/21/1999 Hives,intense itching,edema documented as of this encounter (statuses as of 06/05/2023) Medications Medication Sig Dispensed Refills Start Date [...] MOUTH EVERY MORNING 90 Tablet 3 08/10/2022 08/10/2023 Active Additional Information Patient taking differently: 10 mg Oral HS, Reported on 03/13/2023 Evolocumab with Infusor 420 MG/3.5ML Subcutaneous Solution Cartridge ([employer] Pushtronex System)Indications :Dyslipidemia, goal LDL below 100,Chronic coronary artery disease,PAD (peripheral artery disease) ([facility]) INJECT 420 MG UNDER THE SKIN EVERY MONTH -- ADMINISTER OVER 5 MINUTES -- REMOVE FROM REFRIGERATOR 45 MINUTES PRIOR TO INJECTION 10.5 mL 3 08/09/2022 08/21/2023 Active Cilostazol 100 MG Oral Tablet (Pletal) [...] 04/24/2023 Active clonazePAM 0.5 MG Oral Tablet (KlonoPIN)Indicati ons:Sleep disorder TAKE 1 TO 2 TABLETS BY MOUTH ONCE DAILY AT BEDTIME FOR SLEEP 60 Tablet 0 05/22/2023 Active Fluocinonide 0.05 % External SolutionIndication s:Seborrheic [...] on food.. 60 Capsule 5 05/25/2023 Active Isosorbide Mononitrate ER 30 MG Oral Tablet Extended Release 24 Hour (Imdur)Indications :Coronary artery disease involving [place] coronary artery of [place] heart without angina pectoris,Chronic coronary artery disease TAKE ONE TABLET BY MOUTH EVERY DAY IN THE MORNING 90 Tablet 3 05/30/2023 05/29/2024 Active documented as of this encounter (statuses as of 06/05/2023) Active Problems Problem Noted Date Diagnosed Date [...] as of this encounter (statuses as of 06/05/2023) Resolved Problems Problem Noted Date Diagnosed Date [...] disorder 02/15/2012 09/03/2017 Genetic Sleep Disorder Resea [facility] Other*[id number] 06/26/2011 12/08/2015 EXAMINATION OF PARTICIPANT I N CLINICAL TRIAL-Genomics 06/04/2009 08/20/2009 Overview: Renamed Per Clinical Trials Billing Project. Study Titile: Genomic Markers for Patients with Cardiovascular Disease Project #[id number] PI: Radha Yepez MD Please call [phone] with study related questions GENOMICS CARDIO RESEARCH OTHER*[id number] 06/04/2009 06/13/2016 Overview: Renamed Per Clinical Trials Billing Project. Study Titile: Genomic Markers for Patients with Cardiovascular Disease Project #[id number] PI: Radha Yepez MD Please call [phone] with study related questions Benign neoplasm of [...] as of this encounter (statuses as of 06/05/2023) Immunizations Name Administration Dates Next Due COVID-19 mRNA, LNP-s, No Pre serve, 2-Dose Series ([employer]) 07/02/2020,06/03/2020 COVID-19, mRNA, LNP-s, PF, B ooster, 100mcg/0.5mg ([employer]a) 10/06/2021,03/02/2021 Covid-19, Mrna, Lnp-s, Pf, B ivalent, 30 Mcg, IM, 12 yrs and above ([employer] 02/15/2022 H1N1 2009 Influenza, IM 05/10/2009 Pneumococcal [...] encounter Miscellaneous Notes * Telephone Encounter - Lexi Huffman OSA - 06/05/2023 10:33 AM EST Scheduled. 06/05/2023 * Telephone Encounter - Isatu Campos PA-C - 06/04/2023 3:11 PM EST Agree Please put on nurse schedule for call in 1 week to see if med has improved his tremor Isatu Campos PA-C * Telephone Encounter - Alis Santa LPN - 06/04/2023 1:54 PM EST How is tremor? Is it lessen the med? Any side affects? Dose ok or go up? Spoke with pt. Just picked up the medication last August. Pt states it helps sometimes, but not allthe time. Pt hasn't noticed any adverse side effects. Pt would like us to check back with him againin one week. Pt is not against trying to increase medication if he feeling the same as today. Schedule phone call on nurse visit in one week documented in this encounter Plan of Treatment Upcoming Encounters Date Type Department Care Team (Late st Contact Info) Description 06/11/2023 10:00 AM EST Scheduled Telephone Ancillary Department, [place] [address] [address] [place], Nurse Follow Up Phone Call Schedule [address] [place] [facility] [place] [address] 07/17/2023 3:00 PM EDT Office Visit Cardiology, [facility] [address] [facility] [place] [address] Marcia Collins CRNP [address] [place] [address] 08/17/2023 1:20 PM EDT Office Visit Neurology [facility] [address] [facility] [place] [address] Shantel Mc PA-C [address] [facility] [place] [address] 09/28/2023 12:45 PM EDT Office Visit Dermatology [facility] [address] [facility] [place] [address] Mitchell Mack MD [address] [facility] [place] [address] 11/05/2023 1:00 PM EDT Office Visit Family [facility], [place] [address] [phone] Kaz Robledo [facility] [address] [facility] [address] Scheduled Procedures Name Priority Associated Diagnoses Date/Ti [...] as of this encounter Care Teams Software Manager Relationship Specialty Start Date End Date Kaz Robledo MD [address] [facility] [place] [address] PCP - General Family Medicine 03/05/17 documented as of this encounter
--- OUTSIDE RECORDS SUMMARY | 2023-10-19 07:25 | External Medical Summary | Summary of Care ---
Author Name Unknown Organization [facility] Address [address] [place] [address] Phone [phone] Care Team Providers Care Circle Beveler Name Role Phone Kaz Robledo MD Primary Care Provider [phone]- [phone] Reason for Visit * Reason Onset Date Comments Follow Up Continues to hav e tremors, blood pressures up and down, discuss covid vaccine Medication Administration 04/24/2023 Flu an d/or Pneumo Inj Encounter Details Date Type Department Care Team (Latest Contact Info) Description 04/24/2023 4:00 PM EST Office Visit [facility] [address] [place] [address] Kaz Robledo MD [address] [place] [address] Tremor*; HTN, goal below 140/90; Major depressive disorder, recurrent episode, mild (HCC); Need for prophylactic vaccination and inoculation against influenza; Prediabetes; Generalized osteoarthritis Allergies Active Allergy Reactions Criticality Noted Date Comments Atorvastatin Muscle pain 12/11/2016 Bee Stings 02/21/1999 Hives,intense itching,edema documented as of this encounter (statuses as of 05/08/2023) Medications Medication Sig Dispensed Refills Start Date [...] mouth every other day. 0 03/24/2018 Active ketoconazole 2 % shampooIndication s:Seborrheic dermatitis Apply to scalp 2-3 x's per week. 360 mL 5 07/22/2019 Active Ketoconazole 2 % External CreamIndications: Seborrheic [...] a day 850 g 1 12/29/2020 Active Fluocinonide 0.05 % External SolutionIndicatio ns:Seborrheic dermatitis APPLY TO SCALP DAILY SUNDAY THRU SUNDAY NEEDED FOR REDNESS AND FLAKING 60 mL 2 05/04/2021 Active Triamcinolone Acetonide 0.1 % External Cream [...] Hour (Imdur)Indication s:Coronary artery disease involving king salmon coronary artery of king salmon heart without angina pectoris,Chronic coronary artery disease TAKE ONE TABLET BY MOUTH EVERY DAY IN THE MORNING 90 Tablet 3 07/03/2022 4 Active clonazePAM 0.5 MG Oral Tablet (KlonoPIN)Indicat ions:Sleep disorder TAKE 1 TO 2 TABLETS BY MOUTH ONCE DAILY AT BEDTIME FOR SLEEP 60 Tablet 0 03/23/2023 Active Cilostazol 100 MG Oral Tablet (Pletal) [...] at bedtime. 90 Tablet 3 04/24/2023 Active Metoprolol Succinate ER 25 MG Oral Tablet Extended Release 24 Hour (toPROL XL) Take by mouth 1 Tablet in the morning. 90 Tablet 3 02/15/2022 3 Discontinue d(Refill) Citalopram Hydrobromide 20 MG Oral Tablet (CeleXA)Indicatio ns:Major depressive disorder, recurrent episode, mild (HCC) take 1 tablet by mouth every morning 90 Tablet 3 09/25/2022 3 Discontinue d(Refill) Terazosin HCl 1 MG Oral Capsule (Hytrin)Indicatio ns:HTN, goal below 140/90 Take 1 Capsule by mouth at bedtime. 90 Capsule 3 12/13/2022 3 Discontinue d(Refill) Lisinopril 40 MG Oral Tablet take 1 tablet by mouth every morning 90 Tablet 1 02/20/2023 3 Discontinue d(Refill) Cilostazol 100 MG Oral Tablet (Pletal) take 1 tablet by mouth twice a day ON AN EMPTY STOMACH 180 Tablet 0 04/07/2023 3 Discontinue d(Refill) documented as of this encounter (statuses as of 05/08/2023) Active Problems Problem Noted Date Diagnosed Date [...] as of this encounter (statuses as of 05/08/2023) Resolved Problems Problem Noted Date Diagnosed Date [...] disorder 02/15/2012 09/03/2017 Genetic Sleep Disorder [facility] Other*[id number] 06/26/2011 12/08/2015 EXAMINATION OF PARTICIPANT I N CLINICAL TRIAL-Genomics 06/04/2009 08/20/2009 Overview: Renamed Per Clinical Trials Billing Project. Study Titile: Genomic Markers for Patients with Cardiovascular Disease Project #[id number] PI: Radha Yepez MD Please call [phone] with study related questions GENOMICS CARDIO RESEARCH OTHER*[id number] 06/04/2009 06/13/2016 Overview: Renamed Per Clinical Trials Billing Project. Study Titile: Genomic Markers for Patients with Cardiovascular Disease Project #[id number] PI: Radha Yepez MD Please call [phone] with study related questions Benign neoplasm of [...] as of this encounter (statuses as of 05/08/2023) Immunizations Name Administration Dates Next Due COVID-19 [...] Sign Reading Time Taken Comments Blood Pressure 132/80 04/24/2023 4:08 PM EST Pulse 58 04/24/2023 4:08 PM EST Temperature 36.4 C (97.5 F) 04/24/2023 4:08 PM ES T Respiratory Rate 16 04/24/2023 4:08 PM EST Oxygen Saturation - - Inhaled Oxygen Concentration - - Weight 95.2 kg (209 lb 12.8 oz) 04/24/2023 4:08 PM EST Height 177.8 cm (5' 10") 04/24/2023 4:08 PM EST Body Mass Index 30.1 04/24/2023 4:08 PM EST documented in this encounter Progress Notes * Kaz Robledo MD - 05/08/2023 8:33 PM EST Subjective: Landen Camacho is a 78 year old male here today for Chief Complaint Patient presents with Follow Up Continues to have tremors, blood pressures up and down, discuss covid vaccine Medication Administration Flu and/or Pneumo Inj Pt presents for routine follow up. Concerned about continued issues with tremor. He saw neurology for this issue in February. No focal neuro issues found and no treatment started - due to see them again in August. Agreeable to influenza vac. Has questions about COVID vac. Tolerating current meds. Denies chest pain, shortness of breath, cough, nausea, vomiting, abd pain, dysuria, urinary frequency, nocturia, fever, melena, hematochezia, peripheral edema. Stressors continue - with dementia and currently placed. Past Medical History: Diagnosis Date Allergic disorder bee sting Basal cell cancer 11/04/2013 Benign neoplasm of colon 05/11/2008 adenomatous/repeat colonoscopy in 3 yrs Carotid stenosis, non-symptomatic Carotid stenosis, non-symptomatic left side totally obstructed CHR ISCHEMIC HRT DIS NEC 07/08/2009 total occlusion of the proximal LAD with [id number] collaterals with 50% diffuse mid RCA Depressive disorder, not elsewhere classified Dyslipidemia, goal to be determined Other acute sinusitis Subdural hemorrhage (HCC) Past Surgical History: Procedure Laterality Date CATARACT SURGERY,COMPLEX 03/06/12 CATARACT SURGERY,COMPLEX 04/16/12 CATHETERIZE LEFT HEART THRU SKIN 06/04/09 LEFT HEART CATH, PERCUTANEOUS performed by MARTY ROWELL at [facility] COLONOSCOPY 01/07 tubular adenoma -repeat [id number] COLONOSCOPY W/ BIOPSY (RECTUM) 05/11/08 repeat in 3 yrs/adenomatous COLONOSCOPY, DIAGNOSTIC (RECTUM) 09/13/2015 adenomatous polyp, diverticulosis, repeat 1 yr/COLONOSCOPY FLEXIBLE PROXIMAL DIAGNOSTIC performed by Ariel Johnson MD at ENDOSCOPY [facility] COLONOSCOPY, DIAGNOSTIC (RECTUM) 10/15/2017 adenomatous & hyperplastic polyps, diverticulosis, fair prep, repeat 1 yr/COLONOSCOPY FLEXIBLE PROXIMAL DIAGNOSTIC performed by Gema Rodas MD at [facility]COPY [facility] COLONOSCOPY, DIAGNOSTIC (RECTUM) 03/20/2019 adenomatous polyp, diverticulosis, fair prep, repeat 1 yr/COLONOSCOPY FLEXIBLE PROXIMAL DIAGNOSTIC performed by Gema Rodas MD at [facility]COPY [facility] KNEE ARTHROSCOPY/MENISCECTOMY left OTHER 02/06 perirectal abscess [...] 1 Tablet by mouth every other day. ketoconazole 2 % shampoo Apply to scalp 2-3 x's per week. 360 mL 5 Ketoconazole 2 % External Cream Apply to [...] well, taketwice a day 850 g 1 Fluocinonide 0.05 % External Solution APPLY TO SCALP DAILY SUNDAY THRU SUNDAY NEEDED FOR REDNESS AND FLAKING 60 mL 2 Triamcinolone Acetonide 0.1 % External Cream (Aristocort) Apply topically to affected area 2 times a day. To affected area. 45 g 0 amLODIPine Besylate 10 MG Oral Tablet (Norvasc) TAKE ONE TABLET BY MOUTH EVERY MORNING (Patient taking differently: Take 1 Tablet by mouth at bedtime.) 90 Tablet 3 Evolocumab with Infusor 420 MG/3.5ML Subcutaneous Solution Cartridge ([employer] Pushtronex System) INJECT 420 MG UNDER THE SKIN EVERY MONTH -- ADMINISTER OVER 5 MINUTES -- REMOVE FROM REFRIGERATOR 45 MINUTES PRIOR TO INJECTION 10.5 mL 3 Isosorbide Mononitrate ER 30 MG Oral Tablet Extended Release 24 Hour (Imdur) TAKE ONE TABLET BY MOUTH EVERY DAY IN THE MORNING 90 Tablet 3 clonazePAM 0.5 MG Oral Tablet (KlonoPIN) TAKE 1 TO 2 TABLETS BY MOUTH ONCE DAILY AT BEDTIME FOR SLEEP 60 Tablet 0 Cilostazol 100 MG Oral Tablet (Pletal) [...] morning. In the morning.. 90 Tablet 3 Metoprolol Succinate ER 25 MG Oral Tablet Extended Release 24 Hour (toPROL XL) Take 1 Tablet by mouth at bedtime. 90 Tablet 3 No current facility-administered medications for this visit. Objective: BP 132/80 | Pulse 58 | Temp 36.4 C (97.5 F) | Resp 16 | Ht 1.778 m (5' 10") | Wt 95.2 kg (209 lb 12.8 oz) | BMI 30.10 kg/m | BSA 2.17 m GEN: NAD HEENT: Benign NECK: Supple with no LAD, TM, JVD CHEST: CTA B CV: RRR ABD: Soft, NT/ND, No HSM, NABS EXT: No c,c,e Assessment and Plan: Tremor (Primary) -reviewed possible treatments. Have elected to wait neuro visit. He will call for new or worsening symptoms. HTN, goal below 140/90 - Terazosin HCl 1 MG Oral Capsule (Hytrin); Take 1 Capsule by mouth at bedtime. Major depressive disorder, recurrent episode, mild (HCC) - Citalopram Hydrobromide 20 MG Oral Tablet (CeleXA); Take 1 Tablet by mouth in the morning. In themorning.. Need for prophylactic vaccination and inoculation against influenza - INFLUENZA VACC, QUAD, HIGH DOSE (FLUZONE HD) Prediabetes -continue to monitor. Generalized osteoarthritis Other orders - Cilostazol 100 MG Oral Tablet (Pletal); take 1 tablet by mouth twice a day ON AN EMPTY STOMACH - Lisinopril 40 MG Oral Tablet; Take 1 Tablet by mouth in the morning - Metoprolol Succinate ER 25 MG Oral Tablet Extended Release 24 Hour (toPROL XL); Take 1 Tablet bymouth at bedtime. - INFLUENZA VACC, QUAD, HIGH DOSE (FLUZONE HD) Follow Up: Return in about 6 months (around 10/24/2023) for recheck. | For: recheck 30 min with pt and chart review Kaz Robledo MD * Rita Ruggiero LPN - 04/24/2023 4:20 PM EST PRE - ADMINISTRATION DOCUMENTATION Are you experiencing any cold symptoms or fever? No Have you had Guillain-Callao Syndrome (an illness that causes paralysis) within the last 6 weeks? No Have you had the flu shot in the past? YES Have you ever had a reaction to the flu shot? No Rita Ruggiero LPN, 04/24/2023 4:20 PM Immunization Administration Documentation Time Out Procedure Performed: Yes Patient Identified (Ask Name/Date of ): Yes Does the patient have a fever greater than 101 degrees today? No Patient allergic to latex? No VFC Stock: No Immunization(s) verified: Yes, Immunization Name: Flu, VIS Sheet(s) given: Yes Verified Side and Site: Yes Verified Shot(s) with Parent(s)/Patient: Yes documented in this encounter Nursing Notes * Rita Ruggiero LPN - 04/24/2023 4:15 PM EST The patient has been properly identified by confirmation of name and date of . Chief Complaint Patient presents with Follow Up Continues to have tremors, blood pressures up and down, discuss covid vaccine documented in this encounter Plan of Treatment Upcoming Encounters Date Type Department Care Team (Late st Contact Info) Description 05/22/2023 9:00 AM EST Imaging [facility] 2nd Floor Cardiology, [place] [address] [facility] [place] [address] Gw, Excess Time Radiology [address] [place] [address] [place] [address] 05/22/2023 1:00 PM EST Cardiac Studies Cardiac Studies, [address] [place] [address] 07/17/2023 3:00 PM EDT Office [address] [address] Marcia Collins CRNP [facility] [address] 08/17/2023 1:20 PM EDT Office Visit Neurology [facility] 200 [facility] [place] [address] Shantel Mc PA-C 200 [facility] [place] [address] 09/28/2023 12:45 PM EDT Office Visit Dermatology [facility] [address] [facility] [place] [address] Mitchell Mack MD [address] [facility] [place] [address] 11/05/2023 1:00 PM EDT Office Visit [address] [id number] Kaz Robledo MD [address] [place] [address] Scheduled Orders Name Type Priority Associated Diagnoses Orde r Schedule HEMOGLOBIN A1C Lab Routine Prediabetes Expected: 05/08/2023 (Approximate), Expires: 05/07/2024 ALBUMIN / CREATININE RATIO, URINE Lab Routine HTN, goal below 140/90 Expected: 05/08/2023 (Approximate), Expires: 05/07/2024 BASIC METABOLIC PANEL Lab Routine HTN, goal below 140/90 Expected: 05/08/2023 (Approximate), Expires: 05/07/2024 Scheduled Procedures Name Priority Associated Diagnoses Date/Ti me COLONOSCOPY FLEXIBLE PROXIMAL DIAGNOSTIC Recall History of colon polyps Health Maintenance Due Date Last Done Comments COLONOSCOPY-ANNUAL AGES 18-100 03/20/2020 03/20/2019, 03/20/2019, 10/15/2017, Additional history exists COVID-19 Vaccine ( season) 2023 02/15/2022, 10/06/2021, 03/02/2021, Additional history exists HbA1c 07/06/2023 07/05/2022, 0401/2022, 06/27/2016, Additional history [...] Diagnoses Diagnosis Tremor- Primary Abnormal involuntary movements HTN, goal below 140/90 Unspecified essential hypertension Major depressive disorder, recurrent episode, mild (HCC) Major depressive disorder, recurrent episode, mild Need for prophylactic vaccination and inoculation against influenza Prediabetes Other abnormal glucose Generalized osteoarthritis Generalized osteoarthrosis, unspecified site documented in this encounter Care Teams Circle Beveler Relationship Specialty Start Date End Date Kaz Robledo MD [address] [place] [address] PCP - General Family Medicine 03/05/17 documented as of this encounter
--- OUTSIDE RECORDS SUMMARY | 2023-10-19 07:25 | External Medical Summary | Summary of Care ---
Author Name Unknown Organization [facility] Address [address] [place] [address] Phone [phone] Care Team Providers Care Stationary Plant Operators Name Role Phone Kaz Robledo MD Primary Care Provider +1- [phone] Reason for Visit * Reason Comments Medication Refill Encounter Details Date Type Department Care Team (Late st Contact Info) Description 05/30/2023 Refill Cardiology, [facility] 132 [place] [address] Rogerio Pringle, DO [address] [address] Coronary artery disease involving [place] coronary artery of [place] heart without angina pectoris; Chronic coronary artery disease Allergies Active Allergy Reactions Criticality Noted Date Comments Atorvastatin Muscle pain 12/11/2016 Bee Stings 02/21/1999 Hives,intense itching,edema documented as of this encounter (statuses as of 05/30/2023) Medications Medication Sig Dispensed Refills Start Date [...] with Infusor 420 MG/3.5ML Subcutaneous Solution Cartridge ([employer] Pushtronex System)Indication s:Dyslipidemia, goal LDL below 100,Chronic coronary artery disease,PAD (peripheral artery disease) ([facility]) INJECT 420 MG UNDER THE [...] 24 Hour (Imdur)Indication s:Coronary artery disease involving [place] coronary artery of [place] heart without angina pectoris,Chronic coronary artery disease TAKE ONE TABLET BY MOUTH EVERY DAY IN THE MORNING 90 Tablet 3 05/30/2023 Active Isosorbide Mononitrate ER 30 MG Oral Tablet Extended Release 24 Hour (Imdur)Indication s:Coronary artery disease involving [place] coronary artery of te[place] heart without angina pectoris,Chronic coronary artery disease TAKE ONE TABLET BY MOUTH EVERY DAY IN THE MORNING 90 Tablet 3 07/03/2022 4 Discontinue d(Refill) documented as of this encounter (statuses as of 05/30/2023) Active Problems Problem Noted Date Diagnosed Date [...] as of this encounter (statuses as of 05/30/2023) Resolved Problems Problem Noted Date Diagnosed Date [...] disorder 02/15/2012 09/03/2017 Genetic Sleep Disorder Resea [facility] Other*[id number] 06/26/2011 12/08/2015 EXAMINATION OF PARTICIPANT I N CLINICAL TRIAL-Genomics 06/04/2009 08/20/2009 Overview: Renamed Per Clinical Trials Billing Project. Study Titile: Genomic Markers for Patients with Cardiovascular Disease Project #[id number] PI: Radha Yepez MD Please call [phone] with study related questions GENOMICS CARDIO RESEARCH OTHER*[id number] 06/04/2009 06/13/2016 Overview: Renamed Per Clinical Trials Billing Project. Study Titile: Genomic Markers for Patients with Cardiovascular Disease Project #[id number] PI: Radha Yepez MD Please call [phone] with study related questions Benign neoplasm of [...] as of this encounter (statuses as of 05/30/2023) Immunizations Name Administration Dates Next Due COVID-19 [...] Miscellaneous Notes * Telephone Encounter - Marcia Campuzano CRNP - 05/30/2023 12:42 PM EST Signed Prescriptions: Disp Refills Isosorbide Mononitrate ER 30 MG Oral Table*90 Tab*3 Sig: TAKE ONE TABLET BY MOUTH EVERY DAY IN THE MORNING Authorizing Provider: MARCIA CAMPUZANO * Telephone Encounter - Tonya Nunes COT - 05/30/2023 8:46 AM ESTPending Prescriptions: Disp Refills Isosorbide Mononitrate ER 30 MG Oral Table*90 Tab*3 Sig: TAKE ONE TABLET BY MOUTH EVERY DAY IN THE MORNING * Telephone Encounter - Tonya Nunes, RENETTA - 05/30/2023 8:46 AM EST Did you pend patient's preferred pharmacy and medication before forwarding?yes Pharmacy: [facility] Pending Prescriptions: Disp Refills Isosorbide Mononitrate ER 30 MG Oral Tabl*90 Tab*3 Sig: TAKE ONE TABLET BY MOUTH EVERY DAY IN THE MORNING Last Visit: 03/13/2023 (in office), Visit date not found (telemedicine) Next Visit: 07/17/2023 If no future appointments scheduled, and last appointment is greater than a year ago, please schedule patient for a follow-up appointment Last date the medication was ordered: 07-03-2022 Is this request for a controlled substance?No Urine Drug Screen:No results found. However, due to the size of the patient record, not all encounters were searched. Please check Results Review for a complete set of results. Patient Phone Numbers Labs: Lab Results Component Value Date/Time CREAT 1.1 09/19/2022 01:57 PM CREAT 0.9 11/12/2019 08:36 AM POTASSIUM 4.9 09/19/2022 01:57 PM POTASSIUM 4.4 11/12/2019 08:36 AM TSH 1.05 09/19/2022 01:57 PM TSH 1.95 03/11/2020 08:32 AM LDLCALC 133 (H) 07/05/2022 07:57 AM LDLCALC 35 03/13/2020 10:11 AM LDLDIRECT 44 02/16/2023 07:30 AM LDLDIRECT NOT APPLICABLE 03/13/2020 10:11 AM LDLDIRECT 92 10/13/2010 09:05 AM ALT 16 09/19/2022 01:57 PM ALT 15 11/12/2019 08:36 AM HGBA1C 5.8 (H) 07/05/2022 07:57 AM HGBA1C 5.9 06/27/2016 07:56 AM documented in this encounter Plan of Treatment Upcoming Encounters Date Type Department Care Team (Late st Contact Info) Description 06/04/2023 11:00 AM EST Scheduled Telephone Ancillary Department, [place] [address] [facility] [address] [place], Nurse Follow Up Phone Call Schedule [address] [place] [facility] [place] [address] 07/17/2023 3:00 PM EDT Office Visit Cardiology, [facility] 132 [facility] [place] [address] Marcia Campuzano CRNP 132 [facility] [place] [address] 08/17/2023 1:20 PM EDT Office Visit Neurology [facility] [address] [place] [address] Shantel Mc PA-C [address] [place] [address] 09/28/2023 12:45 PM EDT Office Visit Dermatology [facility] [address] [place] [address] Mitchell Mack MD [address] [place] [address] 11/05/2023 1:00 PM EDT Office Visit Family Practice, [place] [address] [facility] [address] Kaz Robledo MD [address] [place], [place] [id number] Scheduled Procedures Name Priority Associated Diagnoses Date/Ti [...] Visit Diagnoses Diagnosis Coronary artery disease involving te[place] coronary artery of te-[place] heart without angina pectoris Chronic coronary artery disease Coronary atherosclerosis of unspecified type of vessel, te[place] or graft documented in this encounter Care Teams Stationary Plant Operators Relationship Specialty Start Date End Date Kaz Robledo MD [address] [facility] [place] [address] PCP - General Family Medicine 03/05/17 documented as of this encounter
--- OUTSIDE RECORDS SUMMARY | 2023-10-19 07:25 | External Medical Summary | Summary of Care ---
Author Name Unknown Organization [facility] Address [address] [place] [address] Phone [phone] Care Team Providers Care Cattle Sprayer Name Role Phone aKz Robledo MD Primary Care Provider +1- [phone] Encounter Details Date Type Department Care Team (Late st Contact Info) Description 05/22/2023 Orders Only Unspecified Department Marcia Collins CRNP [address] [place] [address] Allergies Active Allergy Reactions Criticality Noted Date [...] day. 0 03/24/2018 Active ketoconazole 2 % shampooIndications :Seborrheic dermatitis Apply to scalp 2-3 x's per week. 360 mL 5 07/22/2019 Active Ketoconazole 2 % External CreamIndications:S eborrheic [...] 1 12/29/2020 Active Fluocinonide 0.05 % External SolutionIndication s:Seborrheic dermatitis APPLY TO SCALP DAILY SUNDAY THRU [...] artery disease,PAD (peripheral artery disease) ([facility]) INJECT 420 MG UNDER THE SKIN EVERY MONTH -- ADMINISTER OVER 5 MINUTES -- REMOVE FROM REFRIGERATOR 45 MINUTES PRIOR TO INJECTION 10.5 mL 3 08/09/2022 08/09/2023 Active Isosorbide Mononitrate ER 30 MG Oral Tablet Extended Release 24 Hour (Imdur)Indications :Coronary artery disease involving [place] coronary artery of [place] heart without angina pectoris,Chronic coronary artery disease TAKE ONE TABLET BY MOUTH EVERY DAY IN THE MORNING 90 Tablet 3 07/03/2022 07/03/2023 Active Cilostazol 100 MG Oral Tablet (Pletal) [...] FOR SLEEP 60 Tablet 0 05/22/2023 Active documented as of this encounter (statuses [...] lower back 05/23, BCC right nasolabial fold 7/16, BCC's left jawline 09/19, left oral commissure [...] disorder 02/15/2012 09/03/2017 Genetic Sleep Disorder [facility] Other*[id number] 06/26/2011 12/08/2015 EXAMINATION OF PARTICIPANT I N CLINICAL TRIAL-Genomics 06/04/2009 08/20/2009 Overview: Renamed Per Clinical Trials Billing Project. Study Titile: Genomic Markers for Patients with Cardiovascular Disease Project #[id number] PI: Radha Yepez MD Please call [phone] with study related questions GENOMICS CARDIO RESEARCH OTHER*[id number] 06/04/2009 06/13/2016 Overview: Renamed Per Clinical Trials Billing Project. Study Titile: Genomic Markers for Patients with Cardiovascular Disease Project #[id number] PI: Radha Yepez MD Please call [phone] with study related questions Benign neoplasm of [...] 07/17/2023 3:00 PM EDT Office Visit Cardiology, [facility] [address] [place] [address] Marcia Collins CRNP [address] [place] [address] 08/17/2023 1:20 PM EDT Office Visit Neurology [facility] 200 [facility] [place] [address] Shantel Mc PA-C [address] [facility] [place] [address] 09/28/2023 12:45 PM EDT Office Visit Dermatology [facility] [address] [facility] [place] [address] Mitchell Mack MD 200 [facility] [place] [address] 11/05/2023 1:00 PM EDT Office Visit [facility] [address] [place] [phone] Kaz Robledo MD [address] [place] [address] Scheduled Procedures Name Priority Associated Diagnoses Date/Ti [...] Procedure Name Priority Date/Time Associated Diagnosis Comments NM MYOCARDIAL PERFUSION IMAGING SPECT MULTIPLE STUDIES WITH PHARMACOLOGIC INTERVENTION Routine 05/22/2023 9:29 AM EST documented in this encounter Results * NM MYOCARDIAL PERFUSION IMAGING SPECT MULTIPLE STUDIES WITH PHARMACOLOGIC INTERVENTION (05/22/2023 9:29 AM EST) 05/22/2023 9:29 AM EST Marcia DE LA GARZA RAD NUC[facility]AR [facility] documented in this encounter Care Teams Cattle Sprayer Relationship Specialty Start Date End Date Kaz Robledo MD [address] [place] [address] PCP - General Family Medicine 03/05/17 documented as of this encounter
--- OUTSIDE RECORDS SUMMARY | 2023-10-19 07:25 | External Medical Summary | Summary of Care ---
Author Name Unknown Organization [facility] Address [address] [place] [address] Phone [phone] Care Team Providers Care Health Education Aide Name Role Phone Kaz Robledo MD Primary Care Provider [phone]- [phone] Reason for Visit * Reason Onset Date Comments Follow Up 06/04/2023 Encounter Details Date Type Department Care Team (Late st Contact Info) Description 06/04/2023 11:00 AM EST Scheduled Telephone Ancillary Department, [place] [address] [place], [place] [id number] [place], Nurse Follow Up Phone Call Schedule [address] [place] [address] Arrived Allergies Active Allergy Reactions Criticality Noted Date Comments Atorvastatin Muscle pain 12/11/2016 Bee Stings 02/21/1999 Hives,intense itching,edema documented as of this encounter (statuses as of 06/04/2023) Medications Medication Sig Dispensed Refills Start Date [...] with Infusor 420 MG/3.5ML Subcutaneous Solution Cartridge ([employer] Pushtronex System)Indications :Dyslipidemia, goal LDL below 100,Chronic coronary artery disease,PAD (peripheral artery disease) ([facility]) INJECT 420 MG UNDER THE SKIN EVERY [...] 24 Hour (Imdur)Indications :Coronary artery disease involving [place] coronary artery of [place] heart without angina pectoris,Chronic coronary artery disease TAKE ONE TABLET BY MOUTH EVERY DAY IN THE MORNING 90 Tablet 3 05/30/2023 05/29/2024 Active documented as of this encounter (statuses as of 06/04/2023) Active Problems Problem Noted Date Diagnosed Date [...] as of this encounter (statuses as of 06/04/2023) Resolved Problems Problem Noted Date Diagnosed Date [...] 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 Study Titile: Genomic Markers for Patients with Cardiovascular Disease Project #[id number] PI: Radha Yepez MD Please call [phone] with study related questions GENOMICS CARDIO RESEARCH OTHER*[id number] 06/04/2009 06/13/2016 Overview: Renamed Per Clinical Trials Billing Project. Study Titile: Genomic Markers for Patients with Cardiovascular Disease Project #[id number] PI: Radha Yepez MD Please call [phone] with study related questions Benign neoplasm of [...] as of this encounter (statuses as of 06/04/2023) Immunizations Name Administration Dates Next Due COVID-19 mRNA, LNP-s, No Pre serve, 2-Dose Series (Moderna) 07/02/2020,06/03/2020 COVID-19, mRNA, LNP-s, PF, B ooster, 100mcg/0.5mg (Moderna) 10/06/2021,03/02/2021 Covid-19, Mrna, Lnp-s, Pf, B ivalent, 30 Mcg, IM, 12 yrs and above ([employer]) 02/15/2022 H1N1 2009 Influenza, IM 05/10/2009 Pneumococcal [...] encounter Miscellaneous Notes * Telephone Encounter - Alis Santa LPN - 06/04/2023 1:54 PM EST How is tremor? Is it lessen the med? Any side affects? Dose ok or go up? Spoke with pt. Just picked up the medication last Sunday. Pt states it helps sometimes, but not [...] 07/17/2023 3:00 PM EDT Office Visit Cardiology, [facility] [address] [place] [address] Marcia Collins CRNP [address] [place] [address] 08/17/2023 1:20 PM EDT Office Visit Neurology [facility] [place] [address] [facility] [address] [place] [address] Shantel Mc PA-C [address] [facility] [place] [address] 09/28/2023 12:45 PM EDT Office Visit Dermatology [facility] [place] [address] [facility] [place] [address] Mitchell Mack MD [address] [facility] [place] [address] 11/05/2023 1:00 PM EDT Office Visit [facility] [address] [place] [address] Kaz Robledo MD [address] [place] [address] Scheduled Procedures Name Priority Associated [...] filedocumented as of this encounter Care Teams Health Education Aide Relationship Specialty Start Date End Date Kaz Robledo MD [address] [place] [address] PCP - General Family Medicine 03/05/17 documented as of this encounter
--- OUTSIDE RECORDS SUMMARY | 2023-10-19 07:25 | External Medical Summary | Summary of Care ---
Author Name Unknown Organization [facility] Address [address] [place] [address] Phone [phone] Care Team Providers Care Early Learning Teacher Name Role Phone Kaz Robledo MD Primary Care Provider +1- [phone] Reason for Visit * Reason Onset Date Comments Follow Up 06/04/2023 Encounter Details Date Type Department Care Team (Late st Contact Info) Description 06/04/2023 11:00 AM EST Scheduled Telephone Ancillary Department, [place] [address], [place] [phone] [place], Nurse Follow Up Phone Call Schedule [address] [place] [address] Arrived Allergies Active Allergy Reactions Criticality Noted [...] with Infusor 420 MG/3.5ML Subcutaneous Solution Cartridge ([employer] Pushtronex System)Indications :Dyslipidemia, goal LDL below 100,Chronic [...] 24 Hour (Imdur)Indications :Coronary artery disease involving [place] coronary artery of [place]enai heart without angina pectoris,Chronic coronary artery disease [...] 09/03/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 Study Titile: Genomic Markers for Patients with Cardiovascular Disease Project #[id number] PI: Radha Yepez MD Please call [phone] with study related questions GENOMICS CARDIO RESEARCH OTHER*[id number] 06/04/2009 06/13/2016 Overview: Renamed Per Clinical Trials Billing Project. Study Titile: Genomic Markers for Patients with Cardiovascular Disease Project #[id number] PI: Radha Yepez MD Please call [phone] with study related questions Benign neoplasm of [...] 30 Mcg, IM, 12 yrs and above ([employer]) 02/15/2022 H1N1 2009 Influenza, IM 05/10/2009 Pneumococcal [...] encounter Miscellaneous Notes * Telephone Encounter - Isatu Campos PA-C [...] 07/17/2023 3:00 PM EDT Office Visit Cardiology, [facility] [address] [place] [address] Marcia Collins CRNP [address] [place] [address] 08/17/2023 1:20 PM EDT Office Visit Neurology [facility] [address] [facility] [place] [address] Shantel Mc PA-C [address] [facility] [place] [address] 09/28/2023 12:45 PM EDT Office Visit Dermatology [facility] [address] [facility] [place] [address] Mitchell Mack MD [address] [facility] [place] [address] 11/05/2023 1:00 PM EDT Office Visit [facility] [address] [place] [phone] Kaz Robledo MD [address], [place] [phone] Scheduled Procedures Name Priority Associated Diagnoses Date/Ti [...] filedocumented as of this encounter Care Teams Early Learning Teacher Relationship Specialty Start Date End Date Kaz Robledo MD [address] [place] [address] PCP - General Family Medicine 03/05/17 documented as of this encounter
[2023-10-19] MEDS: lisinopril 40 MG TAB PO SCH (08:30)
[2023-10-19] MEDS: FOLIC ACID 400 MCG TAB PO SCH (08:31)
[2023-10-19] MEDS: CITALOPRAM 20 MG TAB PO SCH (08:31)
[2023-10-19] MEDS: ISOSORBIDE MONO EXTENDED REL 30 MG TABCR PO SCH (08:31)
[2023-10-19] MEDS: amLODIPine BESYLATE 5 MG TAB PO SCH (08:32)
[2023-10-19] MEDS: ASPIRIN 81 MG ECTAB PO SCH (08:32)
[2023-10-19] MEDS: CALCIUM CARBONATE 1250MG TAB PO SCH (08:32)
[2023-10-19] MEDS: MULTIVITAMIN TAB PO SCH (08:33)
--- NOTE | 2023-10-19 08:46 | Cardiology Consultation ---
Date of Consultation October 19, 2023 Assessment & Plan (1) CAD (coronary artery disease): (2) Chest pain: (3) Elevated troponin I level: Plan Patient admitted with episode of chest pain. HS troponin 50 on admission. EKG with mild T wave inversion in inferior leads this morning. Recent history of crescendo angina, reduced functional capacity, frequent SL nitro use. He had negative nuclear stress testing in May 2023 and echo at that time with preserved LVEF. Echo this admission with new inferior wall motion abnormality. IV heparin initiated. Eliquis on hold. Currently patient is chest pain free, resting comfortably. Continue ASA, isosorbide, metoprolol, lisinopril. Options discussed with patient for ongoing medical management vs proceeding with cardiac cath. Last cath in 2009 revealing 100% occlusion of the LAD with collaterals and 50% occlusion of the RCA. Given recent issues with chest pain with minimal activity, patient preferring to proceed wiht cardiac catheterization. Given hisory of complex CAD and PAD, recommend transfer to [facility] for cath. Case discussed with Dr. Ko. I spent a total of 45 minutes on the date of service in preparation, delivery, and documentation of the care provided to this patient, excluding any time spent in the performance of separately billed services. Susan Arellano PA-C Department of Cardiology, [facility] This chart was completed in part utilizing Speech Voice Recognition Software. Grammatical errors, random word insertions, pronoun errors, and incomplete sentences are an occasional consequence of this system due to software limitations, ambient noise, and hardware issues. Any formal questions or concerns about the content, text, or information contained within the body of this dictation should be directly addressed to the provider for clarification. Supervising Physician Co-Signing Physician Notes I have personally performed a history and physical examination on the patient. I have reviewed the advance practitioner's documentation, and I agree with, and take responsibility for the plan of care. 78-year-old male presented to the emergency department with acute episode of chest discomfort occurring at approximately 4 AM. Mildly elevated high- sensitivity troponin and echocardiogram with new inferior and inferoseptal wall motion abnormality. Pain-free overnight. IV heparin initiated in Eliquis placed on hold. History of complex coronary disease, LAD occlusion and moderate RCA stenosis as well as peripheral vascular disease. Cardiac catheterization recommended for further evaluation. Due to complexity of underlying cardiovascular disease and personal preference, patient will be transferred to [facility] in [place] for cardiac catheterization and intervention. Diagnosed with atrial flutter in August 2023, however, ECG "flutter waves" more likely secondary to resting tremor. No evidence of atrial flutter on admission. Eliquis currently on hold. Patient accepted for transfer to [facility] by Dr. Miguel Brumfield. I spent a total of 45 minutes on the date of service in preparation, delivery, and documentation of the care provided to this patient, excluding any time spent in the performance of separately billed services. History of Present Illness Reason for Consultation: Chest pain; history of CAD Requesting Physician: Dr. Tan Attending Physician: Dr. Ko History of Present Illness Patient is a 78 year old male who was admitted to [facility] with complaints of chest pain. History includes: 1. Ischemic heart disease with cath in May 2009 demonstrating chronic total occlusion of the proximal LAD with [id number] collaterals and a 50% diffuse mid RCA stenosis with preserved LV systolic function. 2. History of postprandial angina 3. Carotid occlusive disease. 4. Hypertension. 5. Hyperlipidemia 6. Erectile dysfunction 7. Peripheral arterial disease 8. Subarachnoid/subdural hematoma 9. History of intolerance to atorvastatin 10. questionable history of atrial flutter vs underlying tremor Patient with recent history of crescendo angina over the last 6 months, reduced functional capacity, increased SL nitro on a daily basis with minimal activity. He underwent nuclear Lexiscan for symptoms in May 2023 which was negative for inducible ischemia. Echo completed in May demonstrated preserved LVEF without wall motion abnormalities. Due to symptoms outpatient cath was discussed but patient deferred and wanting to see how things go. He had just started carbidopa levodopa for Parkinsons and thought he was having side effects. Last evening patient awakened from sleep with substernal chest burning sensation into his throat. He tried several SL nitro without relief. He came to the ER. HS troponin elevated around 50 on arrival. Due to symptoms, he was started on IV heparin. Eliquis on hold. EKG with T wave inversions in inferior leads. Echo completed and demonstrates new inferior wall motion abnormality compared with prior echo in May 2023. At time of evaluation, patient feeling better. He thought his symptoms last night were GERD, but he did not eat typical foods that cause these symptoms. Over the last few weeks he has not been doing his normal activities to avoid getting chest pain. Otherwise he has chest pain with ambulation about 50 yards, mowing his grass, or doing chores around this house. This has been progressive over the last 6 months. Allergies Allergy/AdvReac Type Severity Reaction Status Date / Time bee venom protein (honey bee) Allergy Severe SWELLING, Verified 01/17/23 18:59 INTENSE ITCHING, HIVES atorvastatin AdvReac Intermediate MUSCLE PAIN Verified 01/17/23 18:59 Home Medications Medication Instructions Recorded Confirmed Type nitroglycerin 0.4 mg sublingual 0.4 mg sublingual DIRECTED PRN 01/17/13 10/18/23 History tablet (Nitrostat) Chest Pain #0 BTLS multivitamin 1 tab PO DAILY #0 tabs 09/20/14 10/18/23 History aspirin 81 mg tablet,delayed 81 mg PO DAILY 90 days #90 tabs 04/19/17 10/18/23 History release (Pollo Low Dose Aspirin) cilostazol 100 mg tablet 100 mg PO BID #0 tabs 04/19/17 10/18/23 History coenzyme Q10 400 mg capsule (Co 400 mg PO DAILY 05/15/19 10/18/23 History Q-10) docusate sodium 100 mg capsule 100 mg PO DAILY PRN Constipation 05/15/19 10/18/23 History folic acid 400 mcg tablet 0.4 mg PO DAILY 05/15/19 10/18/23 History metoprolol succinate 25 mg 25 mg PO DAILY 05/15/19 10/18/23 History tablet,extended release 24 hr clonazepam 0.5 mg tablet (Klonopin) 0.5 - 1 mg PO HS PRN sleep #0 tabs 11/25/19 10/18/23 History diclofenac sodium 1 % topical gel 4 g topical UD PRN pain 11/25/19 10/18/23 History evolocumab 420 mg/3.5 mL 420 mg subcut MONTHLY 11/25/19 10/18/23 History subcutaneous wearable injector ([employer] Pushtronex) fluocinonide 0.05 % topical cream 1 appln topical UD PRN itching 11/25/19 10/18/23 History ketoconazole 2 % shampoo 1 appln topical UD 11/25/19 10/18/23 History ketoconazole 2 % topical cream 1 appln topical UD 11/25/19 10/18/23 History cholecalciferol (vitamin D3) 25 25 mcg PO Q OTHER DAY 02/05/22 10/18/23 History mcg (1,000 unit) tablet (Vitamin D3) isosorbide mononitrate 30 mg 30 mg PO QAM 02/05/22 10/18/23 History tablet,extended release 24 hr polyethylene glycol 3350 17 gram 17 g PO DIRECTED 02/05/22 10/18/23 History oral powder packet (Miralax) lisinopril 40 mg tablet (Zestril) 40 mg PO DAILY #30 tabs 02/08/22 10/18/23 Rx calcium carbonate 500 mg PO DAILY 04/24/22 10/18/23 History amlodipine 10 mg tablet 10 mg PO DAILY 12/14/22 10/18/23 History citalopram 20 mg tablet 20 mg PO DAILY #0 tabs 12/14/22 10/18/23 History terazosin 1 mg capsule 1 mg PO HS 12/14/22 10/18/23 History triamcinolone acetonide 0.1 % 1 applic topical DAILY 12/14/22 10/18/23 History topical cream apixaban 5 mg tablet (Eliquis) 5 mg PO BID 10/18/23 10/18/23 History Patient History Medical History (Updated 10/18/23 @ 12:20 by Jennifer Noel PA-C) Atrial flutter Inguinal hernia Surgical History (Updated 10/18/23 @ 11:48 by Jennifer Noel PA-C) S/P tonsillectomy Family History (Updated 10/18/23 @ 11:49 by Jennifer Noel PA-C) Other Asthma Denies family history of Hypertension Social History Smoking Status: Former smoker Tobacco Type: Cigarettes Second Hand Exposure: No; Do You Dip or Chew Tobacco: No; Hx Alcohol Use: No Hx Substance Use: No Preferred Language: Latvian Communication Ability: Effective Manager Printing Required: No Beliefs That Will Affect Care: None Current Living Situation: Alone Other Information That Helps Us Care for You: No Feels Safe at Home: Yes Safety Concerns: Feels Safe At This Time Assistive Devices: Denture - Upper, Denture - Lower and Glasses Review of Systems Review of Systems: All systems reviewed & are unremarkable except as noted in HPI & below Physical Exam Constitutional: WD/WN, vitals as above well developed; no acute distress Neck: trachea midline, no thyromegaly Respiratory: normal respiratory effort Auscultation: no crackles and no rales Cardiovascular: Rate/Rhythm: regular rate and regular rhythm Heart Sounds: normal S1 and normal S2; no murmur Vessels: no JVD Extremities: no edema Gastrointestinal (Abdomen): normal bowel sounds, soft, nontender, no hepatosplenomegaly Musculoskeletal: no cyanosis or clubbing, extremities motor strength 5/5 Skin: no rashes, warm and dry Results & Data Vital Signs (Past 12 Hours) Vital Signs Temp Pulse Pulse Resp BP Pulse Ox O2 Del Method 10/19/23 06:08 48 L 10/19/23 02:28 36.6 C 50 L 18 147/73 H 95 Room Air 10/18/23 23:50 Room Air 10/18/23 22:29 36.7 C 53 L 18 152/80 H 93 Room Air 10/18/23 21:59 54 L Laboratory Results Cardiac Enzymes 10/18/23 10/18/23 10/18/23 Range/Units 09:48 11:53 18:12 AST 13 (13-39) U/L Troponin I High Sens 51.2 H* 45.4 H 38.9 H (0-20) pg/ml 10/18/23 Range/Units 23:35 AST (13-39) U/L Troponin I High Sens 38.1 H (0-20) pg/ml Coagulation 10/18/23 Range/Units 09:48 PT 10.3 (9.0-12.0) Seconds APTT 35 H (21-31) Seconds CBC 10/18/23 10/19/23 Range/Units 09:48 04:16 WBC 8.71 6.02 (4.8-10.8) K/ul RBC 5.01 4.09 L (4.70-6.10) M/uL Hgb 15.6 12.6 L D (14.0-18.0) g/dl Hct 45.5 37.0 L (42.0-52.0) % Plt Count 223 186 (130-400) K/uL Neut # (Auto) 6.49 (1.40-6.50) K/uL Lymph # (Auto) 1.26 (1.20-3.40) K/uL Emery # (Auto) 0.58 (0.11-0.59) K/uL Eos # (Auto) 0.28 (0.00-0.50) K/uL Baso # (Auto) 0.07 (0.00-0.20) K/uL Comprehensive Metabolic Panel 10/18/23 10/19/23 Range/Units 09:48 04:16 Sodium 138 136 (136-145) mmol/L Potassium 4.2 3.9 (3.5-5.1) mmol/L Chloride 105 105 (98-107) mmol/L Carbon Dioxide 29 28 (21-32) mmol/L BUN 21 18 (6-23) mg/dl Creatinine 1.14 1.14 (0.6-1.4) mg/dl Glucose 128 H 111 H (70-99(Fasting)) mg/dl Calcium 10.6 H 9.0 (8.6-10.3) mg/dl AST 13 (13-39) U/L ALT 8 (7-52) U/L Alkaline Phosphatase 91 (34-104) U/L Total Protein 7.8 (6.0-8.3) gm/dl Albumin 4.7 (3.4-5.0) gm/dl Intake and Output 10/18/23 10/19/23 10/19/23 22:59 06:59 14:59 Intake Total 146 / 160.733 14.733 / 160.733 136 / 136 Output Total 200 / 200 Balance -54 / -39.267 14.733 / -39.267 136 / 136 Intake: IV 146 / 160.733 14.733 / 160.733 136 / 136 Heparin Sodium/Dextrose 25,000 146 / 160.733 14.733 / 160.733 136 / 136 units In 500 ml @ 850 UNITS/HR 17 mls/hr IV .Q24H [facility] Rx#: [id number] Oral 0 / 0 Output: Urine 200 / 200 Other: # Unmeasured Voids 1 2 Weight 94.8 kg 94.4 kg Weight Measurement Method Built in [facility] Diagnostic Findings Telemetry reviewed: Sinus bradycardia in the 50's. Underlying tremor causing artifact EKG dated October 19, 2023: Sinus bradycardia T wave inversion in inferior leads EKG dated October 2023: Sinus bradycardia LAD No acute ischemic changes Echo report reviewed from October 2012: LVEF 60-65% Mild concentric LVH Small sized basal septal and inferior wall motion abnormality with hypokinesis to akinesis of the segements. Aortic valve sclerosis mild without significant aortic valve stenosis Mild MR Grade I diastolic dysfunction Outside records: Nuclear lexiscan report reviewed from May 2023: Interpretation Summary The myocardial perfusion imaging is normal with no evidence of scar or inducible ischemia. The stress EKG response is negative for ischemia. Symptoms reported as described below that are difficult to distinguish between angina and side effect of the regadenoson. Gated SPECT imaging reveals normal myocardial thickening and wall motion. The left ventricular ejection fraction was calculated to be 73%. Echo report reviewed from May 2023: Interpretation Summary The examination is adequate to evaluate the referral indication. There was normal sinus rhythm during the examination. The LV wall thickness is mildly increased (concentric). The left ventricular wall motion is normal. The qualitative LV ejection fraction is 55-59% (normal). The aortic valve has three leaflets. There is moderate focal calcification of the non coronary cusp of the aortic valve . Aortic stenosis is absent. There is no significant aortic regurgitation. The left ventricular diastolic function is mildly abnormal (grade I). 06/04/09 Cardiac Cath: 1. 100% occluded proximal LAD with excellent [id number] collaterals. 2. 50% diffuse midright coronary artery stenosis. 3. Normal left ventricular systolic function. Medications Administered Current Inpatient Medications Acetaminophen (Acetaminophen 325 Mg Tab) 650 mg PO Q4H PRN PRN Reason: Pain or Fever Stop: 11/17/23 17:05 Al Hydrox/Mg Hydrox/Simethicone (Aluminum/Magnesium Susp 30 Ml Udc) 15 ml PO Q4H PRN PRN Reason: Dyspepsia Stop: 11/17/23 17:05 Amlodipine Besylate (Amlodipine Besylate 5 Mg Tab) 10 mg PO DAILY PHUONG Stop: 11/18/23 08:59 Aspirin (Aspirin 81 Mg Ectab) 81 mg PO DAILY PHUONG Stop: 11/18/23 08:59 Betamethasone Dipropion Augmented (Betamethasone Dip Aug (Diprolene) 0.05% Cr 15 Gm Tube) 1 appln EXT UD PRN PRN Reason: itching Stop: 11/17/23 17:14 Calcium Carbonate (Calcium Carbonate 1250mg Tab) 1 tab PO DAILY PHUONG Stop: 11/18/23 08:59 Cilostazol (Cilostazol 100 Mg Tab) 100 mg PO BID PHUONG Stop: 11/17/23 20:59 Last Admin: 10/18/23 21:00 Dose: 100 mg Citalopram Hydrobromide (Citalopram 20 Mg Tab) 20 mg PO DAILY PHUONG Stop: 11/18/23 08:59 Clonazepam (Clonazepam 0.5 Mg Tab) 0.5 mg PO HS PRN PRN Reason: sleep Stop: 11/17/23 17:05 Last Admin: 10/18/23 21:00 Dose: 0.5 mg Diclofenac Sodium (Diclofenac Sod 1% Gel 100 Gm Tube) 4 gm EXT QID PRN; Protocol PRN Reason: pain Stop: 11/17/23 17:05 Docusate Sodium (Docusate Sodium 100 Mg Cap) 100 mg PO DAILY PRN PRN Reason: Constipation Stop: 11/17/23 17:05 Folic Acid (Folic Acid 400 Mcg Tab) 400 mcg PO DAILY PHOUNG Stop: 11/18/23 08:59 Heparin Sodium/Dextrose (Heparin Sodium/Dextrose) 25,000 units in 500 mls @ 17 mls/hr IV .Q24H PHUONG; Protocol Stop: 11/17/23 12:59 Last Titration: 10/19/23 07:03 Dose: 850 units/hr, 17 mls/hr Isosorbide Mononitrate (Isosorbide Emery Extended Rel 30 Mg Tabcr) 30 mg PO QAM PHUONG Stop: 11/18/23 08:59 Lisinopril (Lisinopril 40 Mg Tab) 40 mg PO DAILY PHUONG Stop: 11/18/23 08:59 Metoprolol Succinate (Metoprolol Succ 25mg Ext Rel Tab) 25 mg PO HS PHUONG Stop: 11/17/23 20:59 Last Admin: 10/18/23 21:00 Dose: 25 mg Multivitamins (Multivitamin Tab) 1 tab PO DAILY [facility] Stop: 11/18/23 08:59 Nitroglycerin (Nitroglycerin Sl 0.4 Mg/Tab Tab) 0.4 mg SL Q5M PRN; Protocol PRN Reason: Chest Pain Stop: 11/17/23 17:05 Ondansetron HCl (Ondansetron Inj 2 Mg/Ml 2 Ml Vial) 4 mg IV Q6H PRN PRN Reason: Nausea Stop: 11/17/23 17:05 Polyethylene Glycol (Polyethylene (Miralax) 17 Gm Pack) 17 gm PO DAILY PRN PRN Reason: CONSTIPATION Stop: 11/18/23 08:59 Terazosin HCl (Terazosin Hcl 1 Mg Cap) 1 mg PO HS PHUONG Stop: 11/17/23 20:59 Last Admin: 10/18/23 21:00 Dose: 1 mg Vitamin D (Cholecalciferol 25 Mcg (1000 Units) Tab) 25 mcg PO Q48H PHUONG Stop: 11/17/23 17:59 Last Admin: 10/18/23 18:29 Dose: 25 mcg (2) Chest pain Chest pain type: unspecified Qualified Code(s): R07.9 - Chest pain, unspecified
[2023-10-19] MEDS ORDERED: POLYETHYLENE (MIRALAX) 17 GM PACK PO PRN (09:00)
--- NOTE | 2023-10-19 15:32 | Discharge Summary ---
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 Waxing and waning chest pressure since 0400, resolved since arrival R/o ACS; risk factors include smoking hx, HTN, CAD, vascular disease EKG with sinus rhythm, no acute ST changes Initial HS troponin elevated at 50 (Per Dr. Minor, not uploaded to chart yet). Repeat pending CXR possible mild pulmonary venous congestion. Faint lower lobe airspace opacities may represent atelectasis, pneumonia, and/or aspiration. Follows with [facility] cardiology - h/o resting echocardiogram and Nuclear stress test May 2023 which was negative for ischemia. There is notation of moderate aortic calcification Given 324mg aspirin in ED Trend serial cardiac enzymes Check echo Repeat EKG in am Transition from home eliquis to IV heparin in case cardiac intervention needed Consult cardiology 10/18 45, 38, 38 EKG with mild T wave inversion in the inferior leads Echocardiogram: No inferior inferoseptal wall motion abnormality Cardiology service consulted Recommend transfer to [facility] for cardiac catheterization Patient accepted for transfer Continue IV heparin Faint lower lobe airspace abnormalities CXR: 1. Possible mild pulmonary venous congestion. 2. Faint lower lobe airspace opacities may represent atelectasis, pneumonia, and/or aspiration. Afebrile, no leukocytosis Patient reports chronic sputum production, mostly in the morning, feels this is postnasal drip Will start empiric ceftriaxone plus doxycycline for possible pneumonia Please monitor close (3) CAD (coronary artery disease): (4) Peripheral arterial disease: (5) Hyperlipidemia: Denies any hx of intervention. Follows with [facility]. Continue aspirin, Repatha (statin intolerant) (6) Hypertension: Continue home amlodipine, lisinopril, Toprol, terazosin (7) Atrial flutter: Diagnosed in August - started on Eliquis Will hold for now and start IV heparin (8) Parkinson's disease: Recently seen by neuro for tremor at beginning of September 2023, diagnosed with Parkinson's disease - prescribed Sinemet but stopped one week ago due to increased confusion and BP fluctuations (9) Depression: (10) Anxiety: Continue SSRI, PRN home Klonopin DVT Ppx: IV heparin in case of cardiac intervention Code status: FULL PCP: Venkat Dispo: transfer to [facility] Notes For Next Care Provider Medication Changes From Visit IV heparin Ceftriaxone plus doxycycline Admission HPI Per Admitting Provider This is a 78yo M with a PMH of CAD, HTN, mood disorder, PAD, carotid artery stenosis and other medical problems listed below 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 Patient woke up suddenly with burning chest pain at 0400. Sat upright to see if pain with resolve but it did not. Then sat in recliner overnight and pain waxed and waned all night till 0800, when he called [facility] appointment line and was re-directed to ED for further evaluation. Pain radiated up to neck, not to arms. Describes pain as a pressure. Also endorses headache over the past few days. BP log showing SBP 120-700s on average. Also endorses increased fatigue and cough over the past week. No fever, chills, lightheadedness, shortness of breath, palpitations, nausea, vomiting, abdominal pain, dysuria, diarrhea or constipation. Taking all medications as prescribed. Lives alone. History of smoking cigarettes but quit in 2002. Hx of 2D echo in May 2023 with preserved EF, mild concentric LV wall thickness. Patient is a poor historian. Discharge Exam GENERAL: Alert and oriented x3. NAD, on RA. HEENT: No pallor, no icterus. Pupils equal, round and reactive to light. Oral mucosa moist. NECK: No JVD, no neck masses. Resting tremor noted. Chest pain non reproducible. HEART: S1 and S2 heard. Regular rate and rhythm. No murmur, no gallop. RESPIRATORY SYSTEM: Normal AP diameter. No accessory muscle use. No wheezing, no crackles. ABDOMEN: Soft, bowel sounds present, nontender, no distention. CENTRAL NERVOUS SYSTEM: No facial droop. Speech is clear. Obeys simple commands. Moves extremities. EXTREMITIES: No edema, no erythema seen. Updated Medication List Medication Instructions Recorded Confirmed Type nitroglycerin 0.4 mg sublingual 0.4 mg sublingual DIRECTED PRN 01/17/13 10/18/23 History tablet (Nitrostat) Chest Pain #0 BTLS multivitamin 1 tab PO DAILY #0 tabs 09/20/14 10/18/23 History aspirin 81 mg tablet,delayed 81 mg PO DAILY 90 days #90 tabs 04/19/17 10/18/23 History release (Pollo Low Dose Aspirin) cilostazol 100 mg tablet 100 mg PO BID #0 tabs 04/19/17 10/18/23 History coenzyme Q10 400 mg capsule (Co 400 mg PO DAILY 05/15/19 10/18/23 History Q-10) docusate sodium 100 mg capsule 100 mg PO DAILY PRN Constipation 05/15/19 10/18/23 History folic acid 400 mcg tablet 0.4 mg PO DAILY 05/15/19 10/18/23 History metoprolol succinate 25 mg 25 mg PO DAILY 05/15/19 10/18/23 History tablet,extended release 24 hr clonazepam 0.5 mg tablet (Klonopin) 0.5 - 1 mg PO HS PRN sleep #0 tabs 11/25/19 10/18/23 History diclofenac sodium 1 % topical gel 4 g topical UD PRN pain 11/25/19 10/18/23 History evolocumab 420 mg/3.5 mL 420 mg subcut MONTHLY 11/25/19 10/18/23 History subcutaneous wearable injector (Neha Yanes) fluocinonide 0.05 % topical cream 1 appln topical UD PRN itching 11/25/19 10/18/23 History ketoconazole 2 % shampoo 1 appln topical UD 11/25/19 10/18/23 History ketoconazole 2 % topical cream 1 appln topical UD 11/25/19 10/18/23 History cholecalciferol (vitamin D3) 25 25 mcg PO Q OTHER DAY 02/05/22 10/18/23 History mcg (1,000 unit) tablet (Vitamin D3) isosorbide mononitrate 30 mg 30 mg PO QAM 02/05/22 10/18/23 History tablet,extended release 24 hr polyethylene glycol 3350 17 gram 17 g PO DIRECTED 02/05/22 10/18/23 History oral powder packet (Miralax) lisinopril 40 mg tablet (Zestril) 40 mg PO DAILY #30 tabs 02/08/22 10/18/23 Rx calcium carbonate 500 mg PO DAILY 04/24/22 10/18/23 History amlodipine 10 mg tablet 10 mg PO DAILY 12/14/22 10/18/23 History citalopram 20 mg tablet 20 mg PO DAILY #0 tabs 12/14/22 10/18/23 History terazosin 1 mg capsule 1 mg PO HS 12/14/22 10/18/23 History triamcinolone acetonide 0.1 % 1 applic topical DAILY 12/14/22 10/18/23 History topical cream apixaban 5 mg tablet (Eliquis) 5 mg PO BID 10/18/23 10/18/23 History Hospital Stay Data Consultations 10/18/23 10:59 ED Decision to Admit Stat 10/18/23 11:39 Consult Cardiology Routine 10/19/23 11:17 Burn CD for patient Stat Diagnostic Imagining Performed Laboratory Results WBC 6.02 K/ul (4.8-10.8) 10/19/23 04:16 RBC 4.09 M/uL (4.70-6.10) L 10/19/23 04:16 Hgb 12.6 g/dl (14.0-18.0) L D 10/19/23 04:16 Hct 37.0 % (42.0-52.0) L 10/19/23 04:16 MCV 90.5 fL (80.0-100.0) 10/19/23 04:16 MCH 30.8 pg (25.0-34.0) 10/19/23 04:16 MCHC 34.1 g/dL (32.0-36.0) 10/19/23 04:16 RDW Std Deviation 40.1 fL (36.4-46.3) 10/19/23 04:16 RDW Coeff of Lanre 12.1 % (11.5-14.5) 10/19/23 04:16 Plt Count 186 K/uL (130-400) 10/19/23 04:16 MPV 10.4 fL (9.4-12.4) 10/19/23 04:16 Immature Gran % (Auto) 0.3 % 10/18/23 09:48 Neut % (Auto) 74.5 % 10/18/23 09:48 Lymph % (Auto) 14.5 % 10/18/23 09:48 Miner % (Auto) 6.7 % 10/18/23 09:48 Eos % (Auto) 3.2 % 10/18/23 09:48 Baso % (Auto) 0.8 % 10/18/23 09:48 Neut # (Auto) 6.49 K/uL (1.40-6.50) 10/18/23 09:48 Lymph # (Auto) 1.26 K/uL (1.20-3.40) 10/18/23 09:48 Miner # (Auto) 0.58 K/uL (0.11-0.59) 10/18/23 09:48 Eos # (Auto) 0.28 K/uL (0.00-0.50) 10/18/23 09:48 Baso # (Auto) 0.07 K/uL (0.00-0.20) 10/18/23 09:48 Immature Gran # (Auto) 0.03 K/uL (0.01-0.20) 10/18/23 09:48 PT 10.3 Seconds (9.0-12.0) 10/18/23 09:48 INR 0.9 (0.9-1.1) 10/18/23 09:48 APTT 35 Seconds (21-31) H 10/18/23 09:48 PTT Ratio 1.3 10/18/23 09:48 Heparin Anti-Xa, Unfract 0.58 IU/ml (0.3-0.7) 10/19/23 04:16 Sodium 136 mmol/L (136-145) 10/19/23 04:16 Potassium 3.9 mmol/L (3.5-5.1) 10/19/23 04:16 Chloride 105 mmol/L (98-107) 10/19/23 04:16 Carbon Dioxide 28 mmol/L (21-32) 10/19/23 04:16 Anion Gap 3 (3-11) 10/19/23 04:16 BUN 18 mg/dl (6-23) 10/19/23 04:16 Creatinine 1.14 mg/dl (0.6-1.4) 10/19/23 04:16 Est Cr Clr Drug Dosing 61.7 ml/min 10/19/23 04:16 Est GFR ( Amer) 71.0 ml/min 10/19/23 04:16 Est GFR (Non-Af Amer) 61.3 ml/min 10/19/23 04:16 BUN/Creatinine Ratio 15.8 (10-20) 10/19/23 04:16 Glucose 111 mg/dl (70-99(Fasting)) H 10/19/23 04:16 Calcium 9.0 mg/dl (8.6-10.3) 10/19/23 04:16 Magnesium 2.2 mg/dl (1.7-2.4) 10/19/23 04:16 Total Bilirubin 0.5 mg/dl (0.2-1.0) 10/18/23 09:48 AST 13 U/L (13-39) 10/18/23 09:48 ALT 8 U/L (7-52) 10/18/23 09:48 Alkaline Phosphatase 91 U/L (34-104) 10/18/23 09:48 Troponin I High Sens 38.1 pg/ml (0-20) H 10/18/23 23:35 Total Protein 7.8 gm/dl (6.0-8.3) 10/18/23 09:48 Albumin 4.7 gm/dl (3.4-5.0) 10/18/23 09:48 Globulin 3.1 gm/dl (2.5-4.0) 10/18/23 09:48 Albumin/Globulin Ratio 1.5 (0.9-2) 10/18/23 09:48 Lipase 10 U/L (11-82) L 10/18/23 09:48 Urine Color Yellow 10/18/23 16:45 Urine Appearance Clear (Clear) 10/18/23 16:45 Urine pH 6.0 (4.5-7.5) 10/18/23 16:45 Ur Specific [place] 1.015 (1.000-1.030) 10/18/23 16:45 Urine Protein Negative (Negative) 10/18/23 16:45 Urine Glucose (UA) Negative (Negative) 10/18/23 16:45 Urine Ketones Negative (Negative) 10/18/23 16:45 Urine Blood Negative (Negative) 10/18/23 16:45 Urine Nitrite Negative (Negative) 10/18/23 16:45 Urine Bilirubin Negative (Negative) 10/18/23 16:45 Urine Urobilinogen Negative (Negative) 10/18/23 16:45 Ur Leukocyte Esterase Negative (Negative) 10/18/23 16:45 Impressions Chest X-Ray 10/18/23 09:49 XR chest 1V portable CLINICAL HISTORY: heartburn TECHNIQUE: Single frontal radiograph of the chest was obtained. Comparison: Comparison is made to chest radiograph 01/17/2023 FINDINGS: No lines and tubes are seen. The cardiomediastinal silhouette is stable. Chronic interstitial thickening is seen. Pulmonary vasculature is mildly prominent. Faint bibasilar airspace opacities. No evidence of pleural effusion or pneumothorax. IMPRESSION: 1. Possible mild pulmonary venous congestion. 2. Faint lower lobe airspace opacities may represent atelectasis, pneumonia, and/or aspiration. ACT 112: Negative or not required by law. Electronically signed by: Richie Garcia M.D. 10/18/2023 10:18 AM KUB X-Ray 10/18/23 09:49 KUB CLINICAL HISTORY: heartburn COMPARISON STUDY: CT of the abdomen and pelvis April 24, 2022. FINDINGS: The bowel gas pattern is normal. Pelvic calcifications represent phl eboliths. No renal calculi are identified. No evidence for free air on supine exam. IMPRESSION: No evidence for a bowel obstruction. ACT 112: Negative or not required by law. Electronically signed by: Kvng Werner M.D. 10/18/2023 10:17 AM Pending Results Patient Have Any Pending Studies at Discharge: Yes Discharge Instructions Given to Patient (Per Discharging Provider) Please refer to accompanying hospital discharge summary Total Time Total Time Spent Total Time Spent (In Minutes): 45 minutes
[2023-10-19] MEDS: cefTRIAXone SODIUM 2,000 MG/50 ML BAG IV SCH (16:38)
[2023-10-19] MEDS: ADVANCED PROBIOTIC 625 MG CAPSULE PO SCH (16:41)
--- NOTE | 2023-10-19 17:17 | Electrocardiogram Report ---
Test Reason : Blood Pressure : / mmHG Vent. Rate : 051 BPM Atrial Rate : 051 BPM P-R Int : 188 ms QRS Dur : 092 ms QT Int : 446 ms P-R-T Axes : 033 -21 -17 degrees QTc Int : 411 ms Poor data quality, interpretation may be adversely affected Sinus bradycardia Otherwise normal ECG When compared with ECG of 18-OCT-2023 10:18, Inverted T waves have replaced nonspecific T wave abnormality in Inferior leads Confirmed by Moshe Parham ([id number]) on 10/19/2023 5:16:55 PM Referred By: Kaz Robledo Confirmed By:John Parham
[2023-10-19] MEDS: DOXYCYCLINE HYCLATE 100 MG CAP PO SCH (20:35)
== END 2023-10-20 08:11 | disposition short-term general hospital (02) | DRG 313 ==
LOC: EDINP 09:28 → ED 09:28 → SUATTDRO 12:24 → 2E 17:05

== ENCOUNTER 2024-03-25 12:56 | Inpatient (IN) ==
--- NOTE | 2024-03-25 13:14 | Emergency Department Note ---
Impression & Plan Shortness of breath, Anxiety, Parkinson disease, Tremor, Acute constipation ED Provider Note NAME: BECKY MCCANN AGE: 79 SEX: M : 1945 ARRIVES VIA: Walk-In INFORMANT: Patient, ED PROVIDER(S): Jose F Alonzo MD CHIEF COMPLAINT: Anxiety, shortness of breath, constipation MEDICAL DECISION MAKING: Patient presents with the above symptoms and is accompanied by his daughter. I did speak with the daughter at length after the initial history and physical exam. She was concerned that he is having increased anxiety and would benefit from initiating his Parkinson's treatment but this is yet to be done due to issues and needing additional discussion and clearance from neurology as well as cardiology. Patient's blood work shows a normal white count mild anemia hemoglobin of 13.3 with a normal platelet count kidney function is unremarkable BSG 133 BioFire negative. Chest x-ray appears unchanged compared to prior. Abdomen shows nonobstructive bowel gas pattern with colonic fecal retention. Given the after mentioned concern from the daughter and inability to provide appropriate care at home I did speak with the on-call hospital service. SHERIE Putnam patient was admitted by Dr. Gil. Discussion w/ other healthcare providers: Brain SHERIE Putnam and Dr. Gil Prior /Outside records reviewed: None Differential diagnosis: Reactive airway disease, pneumonia, pneumothorax, COPD, CHF, ACS, pulmonary embolism, musculoskeletal, GERD as well as other pathologies were considered. Diagnostics, as interpreted by me: ECG: Atrial flutter with variable AV block ventricular rate of 55 normal QRS duration normal axis no ST elevations. Cardiac monitoring: An order was placed for continuous cardiac monitoring. The monitor shows a rate of 65 with atrial flutter rhythm. Patient was placed on pulse oximetry Medical decision rules: None Imaging studies: I informally interpreted the patient's chest x-ray does not show obvious pneumonia or pneumothorax with formal report to follow. HPI: Patient presents due to concern for anxiety shortness of breath and abdominal discomfort. The patient states that his shortness of breath began about 3 days ago and was notable when he woke up around 6 AM this morning. The patient is had a cough but this is nonproductive. Former smoker smoking in June. The patient denies any leg swelling or calf pain. He does feel anxious. He states that he has not had a bowel movement in several days and reports that he typically does go every several days but sometimes does need help having a bowel movement. He does take daily stool softeners. He did take his morning medications today. He was concerned also that he had elevated blood pressure with a systolic in the 180s but this was prior to taking his morning blood pressure medication. Patient denies any vomiting but has had some mild nausea. No chest pain. Daughter provides some additional history stating that the patient had been put on short acting Sinemet in the spring but due to issues with his heart and other medications including blood pressure medications PAST MEDICAL HISTORY: See Below PAST SURGICAL HISTORY: See Below SOCIAL HISTORY: See Below HOME MEDICATIONS: See Below ALLERGIES: See Below VITALS: See Below PHYSICAL EXAMINATION: GENERAL: NAD, non-toxic. Wearing glasses. EYE EXAM: Normal conjunctiva. PERRL, no anisocoria and EOM's grossly intact w/o pain. OROPHARYNX: Moist mucus membranes, grossly normal dentition. NECK: Trachea midline, no stridor. Supple, no nuchal rigidity, no adenopathy, non-tender. No signs of meningismus. FROM of the neck with good chin to chest and neck extension. LUNGS: Clear to auscultation. Normal chest wall mechanics. HEART: Occasionally irregular, no MRG. ABDOMEN: Abdomen soft, mild abdominal discomfort throughout but not peritonitic no masses, no rebound or guarding. BACK: No CVA TTP. SKIN: No rashes and no bruising. UPPER EXTREMITIES: Upper extremities are grossly normal. LOWER EXTREMITIES: Grossly normal, no edema. NEURO EXAM: A&O x3, cranial nerves II-XII grossly intact, normal speech, moves all 4 extremities. Past Med/Surg History Problem List Abdominal pain SOB (shortness of breath) on exertion Parkinson's disease Elevated troponin I level (Acute) Chest pain (Acute) Anxiety Depression Hyperlipidemia CAD (coronary artery disease) Peripheral arterial disease Hypertension (Chronic) Medical History Atrial flutter Inguinal hernia Surgical History S/P tonsillectomy Family History Other Asthma Denies family history of Hypertension Social History Smoking Status: Former smoker Tobacco Type: Cigarettes Second Hand Exposure: No; Do You Dip or Chew Tobacco: No; Hx Alcohol Use: No Hx Substance Use: No Preferred Language: Kyrgyz Communication Ability: Effective Research Recruiter Required: No Beliefs That Will Affect Care: None Current Living Situation: Alone Feels Safe at Home: Yes Assistive Devices: Cane Allergies Allergies Allergy/AdvReac Type Severity Reaction Status Date / Time bee venom protein (honey bee) Allergy Severe SWELLING, Verified 03/25/24 14:10 INTENSE ITCHING, HIVES gabapentin Allergy Unknown Unknown Unverified 03/25/24 14:10 atorvastatin AdvReac Intermediate MUSCLE PAIN Verified 03/25/24 14:10 carbidopa [From Sinemet] AdvReac Intermediate Unknown/Family Unverified 03/25/24 14:10 says only Sinemet, haven't tried Sinemet CR. levodopa [From Sinemet] AdvReac Intermediate Unknown/Family Unverified 03/25/24 14:10 says only Sinemet, haven't tried Sinemet CR. Home Meds Home Medications Medication Instructions Recorded Confirmed nitroglycerin 0.4 mg sublingual 0.4 mg sublingual DIRECTED PRN 01/17/13 03/25/24 tablet (Nitrostat) Chest Pain #0 BTLS multivitamin 1 tab PO DAILY #0 tabs 09/20/14 03/25/24 aspirin 81 mg tablet,delayed 81 mg PO DAILY 90 days #90 tabs 04/19/17 03/25/24 release (Pollo Low Dose Aspirin) coenzyme Q10 400 mg capsule (Co 400 mg PO DAILY 05/15/19 03/25/24 Q-10) docusate sodium 100 mg capsule 100 mg PO DAILY PRN Constipation 05/15/19 03/25/24 folic acid 400 mcg tablet 400 mcg PO DAILY 05/15/19 03/25/24 metoprolol succinate 25 mg 25 mg PO DAILY 05/15/19 03/25/24 tablet,extended release 24 hr clonazepam 0.5 mg tablet (Klonopin) 0.5 - 1 mg PO HS PRN sleep #0 tabs 11/25/19 03/25/24 evolocumab 420 mg/3.5 mL 420 mg subcut MONTHLY 11/25/19 03/25/24 subcutaneous wearable injector (Repkyung Pushtronex) ketoconazole 2 % shampoo 1 appln topical UD 11/25/19 03/25/24 ketoconazole 2 % topical cream 1 appln topical UD 11/25/19 03/25/24 cholecalciferol (vitamin D3) 25 25 mcg PO Q OTHER DAY 02/05/22 03/25/24 mcg (1,000 unit) tablet (Vitamin D3) isosorbide mononitrate 30 mg 90 mg PO QAM 02/05/22 03/25/24 tablet,extended release 24 hr polyethylene glycol 3350 17 gram 17 g PO DAILY PRN Constipation 02/05/22 03/25/24 oral powder packet (Miralax) calcium carbonate 500 mg PO DAILY 04/24/22 03/25/24 amlodipine 10 mg tablet 10 mg PO DAILY 12/14/22 03/25/24 citalopram 20 mg tablet 20 mg PO DAILY #0 tabs 12/14/22 03/25/24 terazosin 1 mg capsule 1 mg PO HS 12/14/22 03/25/24 carbidopa ER 25 mg-levodopa 100 mg 1 tab PO BID 03/25/24 03/25/24 tablet,extended release clopidogrel 75 mg tablet 75 mg PO DAILY 03/25/24 03/25/24 melatonin 5 mg tablet 5 mg PO HS PRN Sleep 03/25/24 03/25/24 Previous Rx's Medication Instructions Recorded lisinopril 40 mg tablet (Zestril) 40 mg PO DAILY #30 tabs 02/08/22 Results & Data (ED) Vital Signs Vital Signs - 24 hr 03/25/24 12:59 03/25/24 13:31 03/25/24 15:56 Temperature 36.3 C L Temperature Source Temporal Artery Scan Pulse Rate 61 54 L Pulse Rate [Apical] 56 L Respiratory Rate 20 18 Respiratory Effort / Characteristics Short of Breath Respiratory Depth Normal Respiratory Pattern Regular Blood Pressure 106/64 Blood Pressure [Left Arm] 130/66 Blood Pressure Mean 78 Blood Pressure Mean [Left Arm] 87 Blood Pressure Position [Left Arm] Semi-fowlers Pulse Oximetry 95 94 Oxygen Delivery Method Room Air Room Air Sepsis Recent Fever Within 48 Hours No Sepsis New/Unexplained Change in Mental Status N/A Sepsis Action Taken by Nursing No Action Required 03/25/24 15:59 Temperature Temperature Source Pulse Rate 56 L Pulse Rate [Apical] Respiratory Rate 18 Respiratory Effort / Characteristics Respiratory Depth Respiratory Pattern Blood Pressure Blood Pressure [Left Arm] Blood Pressure Mean Blood Pressure Mean [Left Arm] Blood Pressure Position [Left Arm] Pulse Oximetry 94 Oxygen Delivery Method Room Air Sepsis Recent Fever Within 48 Hours Sepsis New/Unexplained Change in Mental Status Sepsis Action Taken by Long-Term Medications Current Medication List: was personally reviewed by me Laboratory Data Attestation: I reviewed the patient's lab results. 03/25/24 13:35 03/25/24 13:35 Lab Results 03/25/24 03/25/24 Range/Units 13:35 14:08 WBC 5.73 (4.8-10.8) K/ul RBC 4.31 L (4.70-6.10) M/uL Hgb 13.3 L (14.0-18.0) g/dl Hct 38.5 L (42.0-52.0) % MCV 89.3 (80.0-100.0) fL MCH 30.9 (25.0-34.0) pg MCHC 34.5 (32.0-36.0) g/dL RDW Std Deviation 42.3 (36.4-46.3) fL RDW Coeff of Lanre 12.9 (11.5-14.5) % Plt Count 211 (130-400) K/uL MPV 10.5 (9.4-12.4) fL Immature Gran % (Auto) 0.3 % Neut % (Auto) 68.5 % Lymph % (Auto) 20.4 % [place] % (Auto) 7.0 % Eos % (Auto) 2.6 % Baso % (Auto) 1.2 % Neut # (Auto) 3.92 (1.40-6.50) K/uL Lymph # (Auto) 1.17 L (1.20-3.40) K/uL [place] # (Auto) 0.40 (0.11-0.59) K/uL Eos # (Auto) 0.15 (0.00-0.50) K/uL Baso # (Auto) 0.07 (0.00-0.20) K/uL Immature Gran # (Auto) 0.02 (0.01-0.20) K/uL PT 10.5 (9.0-12.0) Seconds INR 1.0 (0.9-1.1) Sodium 138 (136-145) mmol/L Potassium 3.9 (3.5-5.1) mmol/L Chloride 104 (98-107) mmol/L Carbon Dioxide 26 (21-32) mmol/L Anion Gap 8 (3-11) BUN 17 (6-23) mg/dl Creatinine 0.92 (0.6-1.4) mg/dl Est Cr Clr Drug Dosing 75.2 ml/min eGFR 84.62 BUN/Creatinine Ratio 18.5 (10-20) Glucose 133 H (70-99(Fasting)) mg/dl Calcium 9.4 (8.6-10.3) mg/dl Magnesium 2.1 (1.7-2.4) mg/dl Total Bilirubin 0.4 (0.2-1.0) mg/dl AST 14 (13-39) U/L ALT 10 (7-52) U/L Alkaline Phosphatase 77 (34-104) U/L Troponin I High Sens 6.7 (0-20) pg/ml Total Protein 6.6 (6.0-8.3) gm/dl Albumin 4.0 (3.4-5.0) gm/dl Globulin 2.6 (2.5-4.0) gm/dl Albumin/Globulin Ratio 1.5 (0.9-2) TSH 1.922 (0.300-4.500) uIu/ml Adenovirus (PCR) Not Detected (NotDetected) B. pertussis DNA (PCR) Not Detected (NotDetected) B.parapertussis DNA PCR Not Detected (NotDetected) C. pneumoniae DNA (PCR) Not Detected (NotDetected) Coronavirus OC43 (PCR) Not Detected (NotDetected) Coronavirus HKU1 (PCR) Not Detected (NotDetected) Coronavirus 229E (PCR) Not Detected (NotDetected) SARS-CoV-2 (PCR) Not Detected (NotDetected) Coronavirus NL63 (PCR) Not Detected (NotDetected) Human Metapneumovir PCR Not Detected (NotDetected) Influenza Type A (PCR) Not Detected (NotDetected) Influenza Type B (PCR) Not Detected (NotDetected) M. pneumoniae (PCR) Not Detected (NotDetected) Parainfluenza 1 (PCR) Not Detected (NotDetected) Parainfluenza 2 (PCR) Not Detected (NotDetected) Parainfluenza 3 (PCR) Not Detected (NotDetected) Parainfluenza 4 (PCR) Not Detected (NotDetected) RSV (PCR) Not Detected (NotDetected) Entero/Rhino (PCR) Not Detected (NotDetected) Administered Medications Discontinued Medications Lorazepam (Lorazepam 1 Mg/1 Ml Syr Ed Inj Use) 0.25 mg IV ONE STA Stop: 03/25/24 13:30 Last Admin: 03/25/24 14:07 Dose: 0.25 mg Documented By: CEF Imaging Data Radiologist's Impression: Chest/Abdomen X-ray 03/25/24 13:29 XR abdomen 2V w PA chest HISTORY: 79 years-old Male constipation, SOB COMPARISON: 01/24/2024 TECHNIQUE: PA view of the chest with erect and supine views of the abdomen FINDINGS: Cardiomediastinal and hilar silhouettes are within normal limits. There is unchanged chronic interstitial coarsening. No pneumothorax, pleural effusion or airspace consolidation. The bones appear grossly intact. Moderate colonic fecal retention. Nonobstructive bowel gas pattern. No pneumoperitoneum. Vascular ossifications of the kidneys are again noted. No urolith is seen. IMPRESSION: 1. No acute process of the chest. 2. Nonobstructive bowel gas pattern. 3. Moderate colonic fecal retention. ACT 112: Negative or not required by law. The above report was generated using voice recognition software. It may contain grammatical, syntax or spelling errors. Electronically signed by: Basilio Andrews M.D. 03/25/2024 3:11 PM Discharge Plan Visit Data Chief Complaint: Hypertension Stated Complaint: PARKINSON DISEASE, HYPERTENSION, ED Provider: Jose F Alonzo Discharge Problem: Shortness of breath, Anxiety, Parkinson disease, Tremor, Acute constipation Forms Stand Alone Forms: [facility] [employer] Prescriptions Prescriptions: No Action nitroglycerin [Nitrostat] 0.4 mg Tablet, Sublingual 0.4 mg sublingual DIRECTED PRN (Reason: Chest Pain) Qty: 0 multivitamin Tablet 1 tab PO DAILY Qty: 0 aspirin [Pollo Low Dose Aspirin] 81 mg Tablet,Delayed Release (Dr/Ec) 81 mg PO DAILY 90 Days Qty: 90 clonazepam [Klonopin] 0.5 mg tablet 0.5 - 1 mg PO HS PRN (Reason: sleep) Qty: 0 citalopram 20 mg tablet 20 mg PO DAILY Qty: 0 coenzyme Q10 [Co Q-10] 400 mg capsule 400 mg PO DAILY docusate sodium 100 mg capsule 100 mg PO DAILY PRN (Reason: Constipation) folic acid 400 mcg tablet 400 mcg PO DAILY metoprolol succinate 25 mg tablet extended release 24 hr 25 mg PO DAILY Repatha Pushtronex 420 mg/3.5 mL wearable injector 420 mg SQ MONTHLY ketoconazole 2 % cream 1 appln TOP UD Rx Instructions: APPLY TO FACE 2-3 TIMES PER WEEK amlodipine 10 mg tablet 10 mg PO DAILY terazosin 1 mg capsule 1 mg PO HS ketoconazole 2 % shampoo 1 appln TOPICAL UD Rx Instructions: APPLY TO SCALP 2-3 TIMES PER WEEK polyethylene glycol 3350 [Miralax] 17 gram Powder In Packet 17 g PO DAILY PRN (Reason: Constipation) isosorbide mononitrate 30 mg tablet extended release 24 hr 90 mg PO QAM cholecalciferol (vitamin D3) [Vitamin D3] 25 mcg (1,000 unit) Tablet 25 mcg PO Q OTHER DAY lisinopril [Zestril] 40 mg Tablet 40 mg PO DAILY Qty: 30 0RF calcium carbonate 500 mg calcium (1,250 mg) Tablet 500 mg PO DAILY clopidogrel 75 mg tablet 75 mg PO DAILY melatonin 5 mg Tablet 5 mg PO HS PRN (Reason: Sleep) carbidopa-levodopa 25-100 mg tablet extended release 1 tab PO BID Referrals Referrals: Kaz Robledo MD [Primary Care Provider] -
[2024-03-25 13:48] LABS: Basophils # (auto) 0.07 K/uL (0.00-0.20); Basophils % (auto) 1.2 %; Eosinophils # (auto) 0.15 K/uL (0.00-0.50); Eosinophils % (auto) 2.6 %; Hematocrit (blood only) 38.5 % (42.0-52.0); Hemoglobin 13.3 g/dl (14.0-18.0); Immature Granulocytes # (auto) 0.02 K/uL (0.01-0.20); Immature Granulocytes % (auto) 0.3 %; Lymphocytes # (auto) 1.17 K/uL (1.20-3.40); Lymphocytes % (auto) 20.4 %; Mean Corpuscular Hemoglobin 30.9 pg (25.0-34.0); Mean Corpuscular Hgb Conc 34.5 g/dL (32.0-36.0); Mean Corpuscular Volume 89.3 fL (80.0-100.0); Mean Platelet Volume 10.5 fL (9.4-12.4); Neutrophils # (auto) 3.92 K/uL (1.40-6.50); Neutrophils % (auto) 68.5 %; Platelet Count 211 K/uL (130-400); RDW Coefficient of Variation 12.9 % (11.5-14.5); RDW Standard Deviation 42.3 fL (36.4-46.3); Red Blood Count 4.31 M/uL (4.70-6.10); White Blood Count 5.73 K/ul (4.8-10.8)
[2024-03-25] MEDS: LORazepam 1 MG/1 ML SYR ED Inj Use IV STA (14:07)
[2024-03-25 14:12] LABS: Albumin Globulin Ratio 1.5 (0.9-2); BUN Creatinine Ratio 18.5 (10-20); Bilirubin,Total 0.4 mg/dl (0.2-1.0); Calcium 9.4 mg/dl (8.6-10.3); Creatinine Clr Calc Pharmacy 75.2 ml/min; Globulin 2.6 gm/dl (2.5-4.0); Magnesium 2.1 mg/dl (1.7-2.4); Potassium 3.9 mmol/L (3.5-5.1); Prothrombin Time 10.5 Seconds (9.0-12.0); Total Protein 6.6 gm/dl (6.0-8.3)
[2024-03-25 14:14] LABS: Troponin I High Sensitivity 6.7 pg/ml (0-20)
[2024-03-25 14:21] LABS: Thyroid Stimulating Hormone 1.922 uIu/ml (0.300-4.500)
--- NOTE | 2024-03-25 15:13 | XRay Report ---
XR abdomen 2V w PA chest HISTORY: 79 years-old Male constipation, SOB COMPARISON: 01/24/2024 TECHNIQUE: PA view of the chest with erect and supine views of the abdomen FINDINGS: Cardiomediastinal and hilar silhouettes are within normal limits. There is unchanged chronic intersti tial coarsening. No pneumothorax, pleural effusion or airspace consolidation. The bones appear grossl y intact. Moderate colonic fecal retention. Nonobstructive bowel gas pattern. No pneumoperitoneum. Va scular ossifications of the kidneys are again noted. No urolith is seen. IMPRESSION: 1. No acute process of the chest. 2. Nonobstructive bowel gas pattern. 3. Moderate colonic fecal retention. ACT 112: Negative or not required by law. The above report was generated using voice recognition software. It may contain grammatical, syntax o r spelling errors. Electronically signed by: Basilio Andrews M.D. 03/25/2024 3:11 PM
--- NOTE | 2024-03-25 15:16 | History & Physical Report ---
Date of Service March 25, 2024 Assessment & Plan (1) Parkinson's disease: (2) Abdominal pain: (3) Fecal retention: (4) SOB (shortness of breath) on exertion: Plan Landen Camacho is a 79y/o M with PMHx significant for Parkinson's disease, dyslipidemia, prediabetes, COPD, peripheral vascular disease, CAD, HTN, left carotid artery occlusion, right carotid artery stenosis, vitamin D deficiency, generalized osteoarthritis, hearing loss, tobacco use disorder and anxiety/depression who presented to the ED for evaluation secondary to SOB/abdominal discomfort and placement concerns. Parkinson's Disease, Worsening Tremors: Patient follows with [facility] [Dr. Darron Calvillo] per outpatient records on [facility]. Patient has tremor dominant Parkinson's per documentation and has had difficulty tolerating immediate release Carbidopa/Levodopa due to o rthostatic hypotension. He was recently prescribed Carbidopa/Levodopa CR 25/100 BID back in February of this year however he has not started this medication. Will start him on Carbidopa/Levodopa CR 25/100 BID as per above. BP soft on admission - 130/66. Orthostatic vitals QID. Hold home amlodipine, lisinopril for now. Can resume home metoprolol succinate, Imdur. Close BP monitoring. PT/OT evals pending. Abdominal Pain/Discomfort, Fecal Retention: Chest/Abdomen XR --> No acute chest process, moderate colonic fecal retention w/ nonobstructive bowel gas pattern. Patient with resolution of his abdominal pain s/p BM in the ED. Continue w/ scheduled daily bowel regimen 2/2 fecal retention as per above. SOB w/ Exertion: XR w/ no acute chest process as per above. No hypoxia/leukocytosis or evidence of sepsis on admission. Biofire negative. Could be 2/2 worsening anxiety. Other Chronic Medical Conditions: Depression/anxiety, CAD, BPH --> Can continue home medications for these specific conditions. Continue w/ clonazepam 0.5mg BID PRN for anxiety. DVT Prophylaxis: SQ Heparin Code Status: FULL CODE PCP: Kaz Robledo MD Disposition: Admit to Med/Surg -> Patient will ultimately require placement at this point. His daughter, Tiffanie, has been looking into [facility] for long-term placement. * Patient's daughter, Tiffanie, is requesting daily updates. She can reached at the following phone #: [phone]. Patient seen in collaboration with Dr. Gil. Please see addendum. I spent a total of 50 minutes coordinating, documenting, and providing care for this patient excluding time spent in the performance of separately billed services. This included personally reviewing all current laboratories and imaging studies, medical reconciliation, outpatient chart review and discussion with specialists. This chart was completed in part utilizing Speech Voice Recognition Software. Grammatical errors, random word insertions, pronoun errors, and incomplete sentences are an occasional consequence of this system due to software limitations, ambient noise, and hardware issues. Any formal questions or concerns about the content, text, or information contained within the body of this dictation should be directly addressed to the provider for clarification. History of Present Illness Chief Complaint: SOB/Abdominal Discomfort, Placement Concerns Primary Care Provider: Kaz Robledo MD Landen Camacho is a 79y/o M with PMHx significant for Parkinson's disease, dyslipidemia, prediabetes, COPD, peripheral vascular disease, CAD, HTN, left carotid artery occlusion, right carotid artery stenosis, vitamin D deficiency, generalized osteoarthritis, hearing loss, tobacco use disorder, history of [place] a nd anxiety/depression who presented to the ED for evaluation secondary to SOB/abdominal discomfort and placement concerns. History obtained from the patient, conversation with the patient's daughter (Tiffanie) over the phone and associated chart review. Patient seen at bedside with Dr. Gil. Patient notes worsening BUE tremors over the past 3 days. He also endorses abdominal discomfort/pain, increasing nausea and SOB with exertion over the past 3 days as well. No supplemental oxygen use prior to arrival. No headaches or cough. He did have a BM in the ED which has completely resolved his abdominal discomfort/pain. He lives by himself at home and uses a cane to ambulate; no falls in the past month. He is not currently on any medications for his Parkinson's disease - reports a medication was prescribed 2 weeks ago but that it needs to be closely monitored. Patient follows with [facility] - Dr. Darron Calvillo - per outpatient records on [facility]. Patient has tremor dominant Parkinson's per documentation and has had difficulty tolerating immediate release Carbidopa/Levodopa due to orthostatic hypotension. He was recently prescribed Carbidopa/Levodopa CR 25/100 BID back in February of this year however he has not started this medication. His daughter, Tiffanie, has been trying to having him placed at [facility] as he is having significant difficulty living at home by himself without any assistance. His anxiety has worsened lately as his is in the process of being transitioned to hospice care. Tiffanie reports he is not eating well nor functioning well at home. He has also been sleeping not well at all. Tiffanie is unsure if he has been taking his medications either. He can no longer ambulate up and down steps well. He becomes "winded" when walking longer distances per Tiffanie, which has been going on for a few months. Allergies Allergy/AdvReac Type Severity Reaction Status Date / Time bee venom protein (honey bee) Allergy Severe SWELLING, Verified 03/25/24 14:10 INTENSE ITCHING, HIVES gabapentin Allergy Unknown Unknown Unverified 03/25/24 14:10 atorvastatin AdvReac Intermediate MUSCLE PAIN Verified 03/25/24 14:10 carbidopa [From Sinemet] AdvReac Intermediate Unknown/Family Unverified 03/25/24 14:10 says only Sinemet, haven't tried Sinemet CR. levodopa [From Sinemet] AdvReac Intermediate Unknown/Family Unverified 03/25/24 14:10 says only Sinemet, haven't tried Sinemet CR. Home Medications Medication Instructions Recorded Confirmed Type nitroglycerin 0.4 mg sublingual 0.4 mg sublingual DIRECTED PRN 01/17/13 03/25/24 History tablet (Nitrostat) Chest Pain #0 BTLS multivitamin 1 tab PO DAILY #0 tabs 09/20/14 03/25/24 History aspirin 81 mg tablet,delayed 81 mg PO DAILY 90 days #90 tabs 04/19/17 03/25/24 History release (Pollo Low Dose Aspirin) coenzyme Q10 400 mg capsule (Co 400 mg PO DAILY 05/15/19 03/25/24 History Q-10) docusate sodium 100 mg capsule 100 mg PO DAILY PRN Constipation 05/15/19 03/25/24 History folic acid 400 mcg tablet 400 mcg PO DAILY 05/15/19 03/25/24 History metoprolol succinate 25 mg 25 mg PO DAILY 05/15/19 03/25/24 History tablet,extended release 24 hr clonazepam 0.5 mg tablet (Klonopin) 0.5 - 1 mg PO HS PRN sleep #0 tabs 11/25/19 03/25/24 History evolocumab 420 mg/3.5 mL 420 mg subcut MONTHLY 11/25/19 03/25/24 History subcutaneous wearable injector (Repatha Pushtronex) ketoconazole 2 % shampoo 1 appln topical UD 11/25/19 03/25/24 History ketoconazole 2 % topical cream 1 appln topical UD 11/25/19 03/25/24 History cholecalciferol (vitamin D3) 25 25 mcg PO Q OTHER DAY 02/05/22 03/25/24 History mcg (1,000 unit) tablet (Vitamin D3) isosorbide mononitrate 30 mg 90 mg PO QAM 02/05/22 03/25/24 History tablet,extended release 24 hr polyethylene glycol 3350 17 gram 17 g PO DAILY PRN Constipation 02/05/22 03/25/24 History oral powder packet (Miralax) lisinopril 40 mg tablet (Zestril) 40 mg PO DAILY #30 tabs 02/08/22 03/25/24 Rx calcium carbonate 500 mg PO DAILY 04/24/22 03/25/24 History amlodipine 10 mg tablet 10 mg PO DAILY 12/14/22 03/25/24 History citalopram 20 mg tablet 20 mg PO DAILY #0 tabs 12/14/22 03/25/24 History terazosin 1 mg capsule 1 mg PO HS 12/14/22 03/25/24 History carbidopa ER 25 mg-levodopa 100 mg 1 tab PO BID 03/25/24 03/25/24 History tablet,extended release clopidogrel 75 mg tablet 75 mg PO DAILY 03/25/24 03/25/24 History melatonin 5 mg tablet 5 mg PO HS PRN Sleep 03/25/24 03/25/24 History Past Med/Surg History Problem List (Updated 03/25/24 @ 16:43 by Rosalee Lu PA-C) Fecal retention Abdominal pain SOB (shortness of breath) on exertion Parkinson's disease Elevated troponin I level (Acute) Chest pain (Acute) Anxiety Depression Hyperlipidemia CAD (coronary artery disease) Peripheral arterial disease Hypertension (Chronic) Medical History Atrial flutter Inguinal hernia Surgical History S/P tonsillectomy Family History Other Asthma Denies family history of Hypertension Social History Smoking Status: Former smoker Tobacco Type: Cigarettes Second Hand Exposure: No; Do You Dip or Chew Tobacco: No; Hx Alcohol Use: No Hx Substance Use: No Preferred Language: Citizen Of [place] Communication Ability: Effective Workforce Planner Required: No Beliefs That Will Affect Care: None Current Living Situation: Alone Feels Safe at Home: Yes Assistive Devices: Cane Review of Systems Review of Systems: At least ten systems reviewed and negative, except as noted in the HPI. Physical Exam Physical Exam: Please refer to Dr. Gil's addendum for physical examination findings. Results & Data Results & Data Vital Signs (Past 12 Hours) Vital Signs Temp Pulse Resp BP Pulse Ox O2 Del Method 03/25/24 13:31 54 L 03/25/24 12:59 36.3 C L 61 20 106/64 95 Room Air Laboratory Results Short CBC 03/25/24 Range/Units 13:35 WBC 5.73 (4.8-10.8) K/ul Hgb 13.3 L (14.0-18.0) g/dl Hct 38.5 L (42.0-52.0) % Plt Count 211 (130-400) K/uL BMP 03/25/24 13:35 Sodium 138 Potassium 3.9 Chloride 104 Carbon Dioxide 26 BUN 17 Creatinine 0.92 Glucose 133 H Calcium 9.4 Liver Function 03/25/24 Range/Units 13:35 Total Bilirubin 0.4 (0.2-1.0) mg/dl AST 14 (13-39) U/L ALT 10 (7-52) U/L Alkaline Phosphatase 77 (34-104) U/L Albumin 4.0 (3.4-5.0) gm/dl Diagnostic Findings Chest/Abdomen X-ray 03/25/24 13:29 XR abdomen 2V w PA chest HISTORY: 79 years-old Male constipation, SOB COMPARISON: 01/24/2024 TECHNIQUE: PA view of the chest with erect and supine views of the abdomen FINDINGS: Cardiomediastinal and hilar silhouettes are within normal limits. There is unchanged chronic interstitial coarsening. No pneumothorax, pleural effusion or airspace consolidation. The bones appear grossly intact. Moderate colonic fecal retention. Nonobstructive bowel gas pattern. No pneumoperitoneum. Vascular ossifications of the kidneys are again noted. No urolith is seen. IMPRESSION: 1. No acute process of the chest. 2. Nonobstructive bowel gas pattern. 3. Moderate colonic fecal retention. ACT 112: Negative or not required by law. The above report was generated using voice recognition software. It may contain grammatical, syntax or spelling errors. Electronically signed by: Basilio Andrews M.D. 03/25/2024 3:11 PM Medications Administered Discontinued Medications Lorazepam (Lorazepam 1 Mg/1 Ml Syr Ed Inj Use) 0.25 mg IV ONE STA Stop: 03/25/24 13:30 Last Admin: 03/25/24 14:07 Dose: 0.25 mg Documented By: CEF Code Status & VTE Plan Code Status FULL CODE VTE Prophylaxis Plan VTE Prophylaxis will be ordered: Yes Supervising Physician Co-Signing Physician Notes Patient seen and examined Reports increased shaking/tremors over the past 3 days affecting mobility Reports abd pain and nausea have resolved after a BM today On exam General: Not in distress Eyes: PERRL, conjunctivae normal, not pale, anicteric sclerae, EOM intact bilaterally ENMT: External ear and nose normal, oropharynx normal Respiratory: Normal respiratory effort, no respiratory distress, lungs clear to auscultation, no crackles and no wheezes Cardiovascular: RRR S1 S2 Gastrointestinal (Abdomen): Abdomen is not distended, soft, non-tender to palpation, no guarding, no palpable hepatosplenomegaly, normal bowel sounds Musculoskeletal: No pedal edema Neurologic: Alert and oriented x 3, No focal weakness, sensation grossly intact, +gross tremors in both Upper extremities Psychiatric: Euthymic affect Patient has Parkinson's disease Outpatient Neuro note had recommended starting carbidopa/levodopa CR 25mg BID. However, patient stated he had not started it due to worried about monitoring for side effects Per ER, family also will like placement Will start carbidopa/levodopa and monitor PT/OT/CM for placement Other plans as detailed by Rosalee Lu PA-C I spent a total of 35 minutes coordinating, documenting and providing care for this patient excluding time spent in performance of separately billed services (1) Parkinson's disease Dyskinesia presence: unspecified whether dyskinesia Fluctuating manifestations: unspecified whether manifestations fluctuate Qualified Code(s): G20.A1 - Parkinson's disease without dyskinesia, without mention of fluctuations (2) Abdominal pain Abdominal location: unspecified location Qualified Code(s): R10.9 - Unspecified abdominal pain (3) Fecal retention Constipation type: unspecified constipation type Qualified Code(s): K59.00 - Constipation, unspecified
[2024-03-25 15:17] LABS: Adenovirus PCR Not Detected (NotDetected); Bordetella parapertussis PCR Not Detected (NotDetected); Bordetella pertussis PCR Not Detected (NotDetected); Chlamydia pneumoniae PCR Not Detected (NotDetected); Coronavirus 229E PCR Not Detected (NotDetected); Coronavirus CoV-2 (COVID19)PCR Not Detected (NotDetected); Coronavirus HKU1 PCR Not Detected (NotDetected); Coronavirus NL63 PCR Not Detected (NotDetected); Coronavirus OC43PCR Not Detected (NotDetected); Human Metapneumovirus PCR Not Detected (NotDetected); Influenza A PCR Not Detected (NotDetected); Influenza B PCR Not Detected (NotDetected); Mycoplasma pneumoniae PCR Not Detected (NotDetected); Parainfluenza Virus 1 PCR Not Detected (NotDetected); Parainfluenza Virus 2 PCR Not Detected (NotDetected); Parainfluenza Virus 3 PCR Not Detected (NotDetected); Parainfluenza Virus 4 PCR Not Detected (NotDetected); Respiratory Syncytial VirusPCR Not Detected (NotDetected); Rhinovirus/Enterovirus PCR Not Detected (NotDetected)
--- NOTE | 2024-03-25 18:06 | Electrocardiogram Report ---
Test Reason : Blood Pressure : */* mmHG Vent. Rate : 55 BPM Atrial Rate : 264 BPM P-R Int : * ms QRS Dur : 92 ms QT Int : 438 ms P-R-T Axes : * -33 43 degrees QTcB Int : 419 ms Poor data quality, interpretation may be adversely affected Possible tremor Indeterminate rhythm Left axis deviation Abnormal ECG When compared with ECG of 24-Jan-2024 13:10, Artifact is now more Confirmed by Alphonso Quinn ([id number]) on 03/25/2024 6:06:36 PM Referred By: REFERRED SELF Confirmed By: Alphonso Quinn
[2024-03-25] MEDS ORDERED: MAGNESIUM HYDROXIDE SUSP 30 ML UDC PO PRN (18:17)
[2024-03-25] MEDS ORDERED: MINERAL OIL ENEMA 133 ML BTL PR PRN (18:17)
[2024-03-25] MEDS: CARBIDOPA/LEVODOPA 25/100MG EXT REL TAB PO SCH (19:27)
[2024-03-25] MEDS: HEPARIN SOD 5,000 UNIT/0.5 ML VIAL SQ SCH (20:23)
[2024-03-25] MEDS: TERAZOSIN HCL 1 MG CAP PO SCH (20:23)
[2024-03-25 22:00] LABS: Appearance Urine Turbid (Clear); Bacteria Urine Automated None Seen (None Seen); Bilirubin Urine Negative (Negative); Blood Urine Negative (Negative); Calcium Oxalate Crystals Urine Present (None Prsent); Cast Urine Automated 0-2 /lpf (0-2); Color Urine Dark Yellow; Glucose Urine UA Negative (Negative); Ketones Urine Trace (Negative); Leukocyte Esterase Urine Trace (Negative); Nitrite Urine Negative (Negative); Protein Urine Trace (Negative); Specific Gravity Urine 1.021 (1.000-1.030); Urobilinogen Urine Negative (Negative); WBC Urine Automated 0-5 /hpf (0-5); pH Urine 6.5 (4.5-7.5)
[2024-03-26 06:18] LABS: Hematocrit (blood only) 34.4 % (42.0-52.0); Hemoglobin 11.8 g/dl (14.0-18.0); Mean Corpuscular Hemoglobin 30.9 pg (25.0-34.0); Mean Corpuscular Hgb Conc 34.3 g/dL (32.0-36.0); Mean Corpuscular Volume 90.1 fL (80.0-100.0); Mean Platelet Volume 10.7 fL (9.4-12.4); Platelet Count 186 K/uL (130-400); RDW Standard Deviation 42.7 fL (36.4-46.3); Red Blood Count 3.82 M/uL (4.70-6.10); White Blood Count 5.51 K/ul (4.8-10.8)
[2024-03-26 06:37] LABS: BUN Creatinine Ratio 16.8 (10-20); Calcium 9.3 mg/dl (8.6-10.3); Creatinine Clr Calc Pharmacy 63.9 ml/min; Magnesium 2.3 mg/dl (1.7-2.4); Phosphorus 3.5 mg/dl (2.5-4.9); Potassium 4.2 mmol/L (3.5-5.1)
--- OUTSIDE RECORDS SUMMARY | 2024-03-26 07:07 | External Medical Summary | Summary of Care ---
Author Name Unknown Organization [facility] Address [address] [place] [address] Phone [phone] Care Team Providers Care Transitional Living Specialist Name Role Phone Usha Michaels MD Primary Care Provider [phone] Reason for Visit * Reason Onset Date Comments Medication Refill 03/19/2024 Encounter Details Date Type Department Care Team (Late st Contact Info) Description 03/19/2024 Refill [facility] [id number] [place] [address] Usha Michaels MD [address] [place] [address] Sleep disorder; Adjustment disorder with mixed anxiety and depressed mood Allergies Active Allergy Reactions Criticality Noted Date Comments Atorvastatin Muscle pain 12/11/2016 Bee Stings 02/21/1999 Hives,intense itching,edema Gabapentin 10/02/2023 "Couldn't handle it" documented as of this encounter (statuses as of 03/20/2024) Medications CALCIUM 500 MG PO TABS Take by mouth daily. 60 Tab 0 05/02/20 10 Active NITROGLYCERIN 0.4 MG SL SUBLIndications:St able angina (HCC) 1 TAB EVERY 5 MIN NEEDED, UP TO 3 PER EPISODE 25 Tab 5 10/15/19 14 Active docusate sodium (COLACE) 100 MG Capsule Take 1 Capsule by mouth daily as needed. Active Ketoconazole 2 % External CreamIndications:S eborrheic dermatitis Apply to face 2-3 x's per week. 30 g 4 02/05/20 20 Active Diclofenac Sodium 1 % External GelIndications:Acu te pain of right shoulder Apply 4 gm topically to right shoulder 4 times a day 200 g 1 08/10/19 21 Active Polyethylene Glycol 3350 17 GM/SCOOP Oral Powder (MiraLax)Indicatio ns:Chronic constipation Take 17 g by mouth daily. Dissolve one heaping tablespoon in 8 ounces of water or juice. If after one week, bowels are not moving well, take twice a day 850 g 1 12/30/19 21 Active Fluocinonide 0.05 % External SolutionIndication s:Seborrheic dermatitis Apply to scalp daily Sunday thru as needed for redness and flaking 60 mL 2 4 12:57 PM EST 05/25/19 24 Active Ketoconazole 2 % External Shampoo (Nizoral)Indicatio ns:Seborrheic dermatitis Apply to scalp 2-3 x's per week. 360 mL 5 4 12:57 PM EST 05/25/19 24 Active amLODIPine Besylate 10 MG Oral Tablet (Norvasc) TAKE ONE TABLET BY MOUTH EVERY MORNING 90 Tablet 3 4 9:15 AM EDT 07/20/19 24 025 Active Clopidogrel Bisulfate 75 MG Oral Tablet (Plavix) Take 1 Tablet by mouth in the morning. Do not start before November 24, 2023. 90 Tablet 3 4 10:52 AM EST 11/24/19 24 Active Terazosin HCl 1 MG Oral Capsule (Hytrin)Indication s:HTN, goal below 140/90 take one capsule by mouth at bedtime 90 Capsule 3 4 11:26 AM EDT 12/24/19 24 Active Melatonin 3 MG Oral Tablet Disintegrating Take 1 Tablet by mouth at bedtime. Active Isosorbide Mononitrate ER 30 MG Oral Tablet Extended Release 24 Hour (Imdur)Indications :Chronic coronary artery disease,Stable angina (HCC) Take 3 Tablets by mouth in the morning. 300 Tablet 3 4 11:34 AM EDT 01/24/20 24 Active Repatha SureClick 140 MG/ML Subcutaneous Solution Auto-injector (evolocumab) Inject 140 mg under the skin every 14 days. Remove from refrigerator 30 minutes prior to injection. 2 Each 11 01/31/20 24 Active Carbidopa-Levodopa ER 25-100 MG Oral Tablet Extended Release (Sinemet CR) Take 1 Tablet by mouth in the morning and 1 Tablet before bedtime. 180 Tablet 3 4 11:02 AM EDT 02/28/20 24 Active Citalopram Hydrobromide 20 MG Oral Tablet (CeleXA)Indication s:Major depressive disorder, recurrent episode, mild (HCC) Take 1 Tablet by mouth in the morning. 90 Tablet 03/19/20 24 Active Lisinopril 40 MG Oral Tablet Take 1 Tablet by mouth in the morning. 90 Tablet 03/19/20 24 Active Metoprolol Succinate ER 25 MG Oral Tablet Extended Release 24 Hour (toPROL XL) Take 1 Tablet by mouth at bedtime. 90 Tablet 03/19/20 24 Active Aspirin 81 MG Oral Tablet Delayed ReleaseIndications :Coronary artery disease involving [place] coronary artery of [place]ai heart without angina pectoris Take 1 Tablet by mouth in the morning. 90 Tablet 3 03/18/20 24 Active Triamcinolone Acetonide 0.1 % External Cream (Aristocort)Indica tions:Hand erythema Apply topically to affected area 2 times a day 45 g 03/18/20 24 Active Multivitamin Adult Oral Tablet Take 1 Tablet by mouth in the morning. 90 Tablet 3 03/18/20 24 Active Folic Acid 400 MCG Oral Tablet Take 1 Tablet by mouth in the morning. 30 Tablet 03/18/20 24 Active Vitamin D3 25 MCG (1000 UT) Oral Tablet (Vitamin D3) Take 1 Tablet by mouth in the morning. 90 Tablet 3 03/18/20 24 Active clonazePAM 0.5 MG Oral Tablet (KlonoPIN)Indicati ons:Sleep disorder,Adjustmen t disorder with mixed anxiety and depressed mood TAKE 1 OR 2 TABLETS BY MOUTH AT BEDTIME for sleep 60 Tablet 03/20/20 24 Active clonazePAM 0.5 MG Oral Tablet (KlonoPIN)Indicati ons:Sleep disorder,Adjustmen t disorder with mixed anxiety and depressed mood TAKE 1 OR 2 TABLETS BY MOUTH AT BEDTIME for sleep 60 Tablet 02/12/20 24 024 Discontin ued(Refil l) documented as of this encounter (statuses as of 03/20/2024) Active Problems Problem Noted Date Diagnosed Date Carotid stenosis, asymptomatic, right 12/19/2023 Personal history of [place] (myocardial infarction) 0 10/20/2023 Overview (12/12/2023): 10/20/23 Parkinson's disease 10/20/2023 Assessment & Plan (01/05/2024 12:23 AM EDT): Following with neurology Did not tolerate sinemet due to hypotension Suspect patient will ultimately need placement in nursing facility as disease progresses ( currently at facility due to dementia) Chronic obstructive pulmonary disease 05/25/2023 Major depressive disorder, recurrent episode, mi ld 05/25/2023 Adjustment disorder with mixed anxiety and depre ssed mood 05/25/2023 Assessment & Plan (01/05/2024 12:06 AM EDT): Continues on celexa with prn klonopin Problems related to living alone 05/25/2023 Anxiety 08/03/2022 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, bilateral legs 07/27/2022 Prediabetes 09/12/2021 Overview: Per Prediabetes protocol Carotid occlusion, left 08/19/2020 PVD (peripheral vascular disease) 12/23/2018 Assessment & Plan (01/05/2024 12:08 AM EDT): Chronic LICA occlusion Personal history of subdural hemorrhage 09/04/19 18 History of adenomatous polyp of colon 09/03/2017 History of nonmelanoma skin cancer 06/28/2017 Overview (06/28/2017): BCC's x 2 on the central lower back 05/23, BCC right nasolabial fold 11/19, BCC's left jawline 09/19, left oral commissure 11/18, 12/18, left lower back, chest 11/15 and neck 2000 Controlled substance agreement signed 04/17/2017 Generalized osteoarthritis 08/03/2015 Vitamin D deficiency 03/18/2014 Obesity, Class I, BMI 30.0-34.9 (see actual BMI) 05/14/2012 Overview (05/14/2012): bmi= 31.85 05/14/12 HTN, goal below 140/90 02/15/2012 Assessment & Plan (01/05/2024 12:22 AM EDT): BP appears somewhat labile, however is at goal today REM behavioral disorder 09/25/2011 Periodic limb movement disorder 09/25/2011 History of tobacco use 07/27/2009 Chronic coronary artery disease 07/08/2009 Overview (01/05/2024): Cath 10/22/23 showing severe triple-vessel disease (RCA occluded with L- R collaterals, LAD occluded with L-L collaterals, severe disease in left circumflex Assessment & Plan (01/05/2024 12:06 AM EDT): Too high risk for bypass, continues with medical management for now Following closely with cardiology Continues cardiac rehab via [facility] rehab program Dyslipidemia, goal LDL below 100 04/15/2009 Overview (04/15/2009): Per Lipid Taxonomy. Hearing loss 07/09/2007 documented as of this encounter (statuses as of 03/20/2024) Resolved Problems Problem Noted Date Diagnosed Date Resolved Date Atrial flutter 10/20/2023 10/25/2023 Chronic obstructive pulmonary disease 12/23/2018 08/19/2020 Major depressive disorder wi th single episode, in full remission 12/23/2018 12/12/2023 Chronic pain syndrome 04/17/20172017 COPD (chronic obstructive pulmonary disease) 7 03/06/2017 Encounter for surveillance of abnormal nevi 12/18/2014 09/03/2017 Malignant basal cell neoplasm of skin 11/04/2013 06/28/2017 Overview (08/17/2015): Removed ICD-10 update of inactive term Dysmetabolic syndrome 09/08/20132017 Scalp laceration 01/24/2013 09/03/2017 Head injury 01/24/2013 09/03/2017 History of basal cell carcinoma 11/25/2012 06/28/2017 Overview (11/25/2012): left neck 2001, right lower back and chest 11/15 Sleep disorder 02/15/2012 09/03/2017 Genetic Sleep Disorder [facility] Other*[id number] 06/26/2011 12/08/2015 EXAMINATION OF PARTICIPANT I N CLINICAL TRIAL-Genomics 06/04/2009 08/20/2009 Overview (08/20/2009): Renamed Per Clinical Trials Billing Project. Study Titile: Genomic Markers for Patients with Cardiovascular Disease Project #[id number] PI: Radha Yepez MD Please call [phone] with study related questions GENOMICS CARDIO RESEARCH OTHER*[id number] 06/04/2009 06/13/2016 Overview (08/20/2009): Renamed Per Clinical Trials Billing Project. Study Titile: Genomic Markers for Patients with Cardiovascular Disease Project #[id number] PI: Radha Yepez MD Please call [phone] with study related questions Benign neoplasm of colon 05/11/2008 Overview (05/13/2008): adenomatous/repeat colonoscopy in 3 yrs OPEN WOUND [...] 07/09/2007 09/03/2017 Subjective tinnitus 07/09/2007 08/22/19 19 Carotid stenosis, non-symptomatic 04/27/2006 12/12/2023 ADVANCE DIRECTIVE INFORMATION 04/06/2006 09/03/2017 Overview (04/06/2006): Yes, Patient instructed to provide copy of advance directive for provider to review and to be scanned into Electronic Medical Record Dyslipidemia, goal to be determined 02/03/2005 04/15/2009 Overview (04/15/2009): Per Lipid Taxonomy. IMPOTENCE, ORGANIC ORIGN Tobacco use disorder 010 Major depressive disorder Overview (02/28/2019): history documented as of this encounter (statuses as of 03/20/2024) Immunizations Name Administration Dates Next Due COVID-19 mRNA, LNP-s, No Pre serve, 2-Dose Series (Moderna) 07/02/2020,06/03/2020 COVID-19, mRNA, LNP-s, PF, B ooster, 100mcg/0.5mg (Moderna) 10/06/2021,03/02/2021 Covid-19, Mrna, Lnp-s, Pf, B ivalent, 30 Mcg, IM, 12 yrs and above (Pfizer) 02/15/2022 H1N1 2009 Influenza, IM 05/10/2009 Pneumococcal Conjugate Vacc, 13 Valent (Prevnar) 02/02/2015 Pneumococcal Polysaccharide PPV23 (Pneumovax) 01/24/2010 Seasonal Influenza Vac., MDV , IM, 0.5 mL (Fluzone) 01/21/2014,01/15/2013,01/20/2012,01/23,01/24/2010,01/20/2009,03/09/2008 ,02/06/2007,03/17/2006 Seasonal Influenza, PF, 6 M & above, IM , (FluLaval or Fluzone) 01/14/2020,02/05/2019,02/25/2018,01/25 Seasonal Influenza, Quadriva lent Hd (Fluzone Hd) 04/24/2023,01/10/2022,02/02/2021 Seasonal Influenza, Quadriva lent, No Preserve, IM 01/31/2016,02/01/2015 TD, Preservative Free 08/26/2018 TDAP, Age 7 and older, IM (Adacel) 01/27/2008 Varicella Zoster Vaccine (Adult) 02/03/2009 Zoster [...] money to get more. Never true 01/22/2023 Childcare Answer Date Recorded Do you feel overwhelmed with taking care of a child, family member or friend? No 01/22/2023 Does your family need help f inding childcare? (Household - for ages 0-17 years) Not on file 01/22/2023 Clothing Answer Date Recorded Have you been unable to get clothing when it was really needed? No 01/22/2023 Is your family able to get c lothes or diapers when needed? (Household - for ages 0-17 years) Not on file 01/22/2023 Personal Safety Answer Date Recorded Do you feel unsafe or have concerns for your saf ety? No 10/20/2023 Do you have concerns for you r family's safety? (Household - for ages 0-17 years) Not on file 10/20/2023 Utilities Answer Date Recorded Do you have trouble paying y our heating, water, or electric bill? No 10/20/2023 Is your family able to pay t he heat, water, or electric bill? (Household - for ages 0-17 years) Not on file 10/20/2023 Does your family have access to good internet? (Household - for ages 0-17 years) Not on file 10/20/2023 Employment Status Answer Date Recorded Are you unemployed or without regular income? No 01/22/2023 Does the household have a re gular source of income? (Household - for ages 0-17 years) Not on file 01/22/2023 Social Connections Answer Date Recorded How often do you feel lonely or isolated from th ose around you? Rarely 01/22/2023 Financial Resource Strain Answer Date R ecorded Do you have any trouble payi ng for your medications, or do you think you might in the future? No 01/22/2023 Does your family have troubl e paying for medicine? (Household - for ages 0-17 years) Not on file 01/22/2023 Transportation Needs Answer Date Record ed READ ONLY Do you have troubl e getting a ride to medical visits or work? Never True 10/20/2023 Does your family have a hard time getting a ride to doctors visits? (Household - for ages 0-17 years) Not on file 10/20/2023 Has lack of transportation k ept you from medical appointments, meetings, work, or from getting things needed for daily living? Check all that apply. (Adult - for ages 18 years and over) Not on file 10/20/2023 Do you (or your family) have trouble finding or paying for a ride (transportation)? (Household - for ages 0-17 years) Not on file 10/20/2023 Housing Stability Answer Date Recorded Do you currently live in a s helter or have no steady place to sleep at night? (Adult - for ages 18 years and over) Not on file 10/20/2023 READ ONLY Do you think you a re at risk of becoming homeless? No 10/20/2023 Does your family worry about paying for your home or becoming homeless? (Household - for ages 0-17 years) Not on file 0 10/20/2023 Are you homeless or worried that you might be in the future? (Adult - for ages 18 years and over) Not on file Are you (or your family) shyla eless or worried that you might be in the future? (Household - for ages 0-17 years) Not on file Food Insecurity Answer Date Recorded Do you need food for this week? No 10/20/2023 Are you able to get enough f ood for your family? (Household - for ages 0-17 years) Not on file 10/20/2023 Does your family need food t his week? (Household - for ages 0-17 years) Not on file 10/20/2023 Do you always have enough fo od for your family? (Household - for ages 0-17 years) Not on file 10/20/2023 Sex and Gender Information Value Date Recorded Sex Assigned at Male 08/26/2018 4:04 PM EDT Legal Sex Male 6:00 AM EST Gender Identity Male 08/26/2018 4:04 PM EDT Sexual Orientation Straight 08/26/2018 4: 04 PM EDT Occupation Industry Job Start Date Job End Date Not on file Not on file Not on file Not on file documented as of this encounter Functional Status * Are you deaf or do you have serious difficulty hearing? Answer Date of Assessment Author No 10/20/2023 9:22 AM Nba Wynn RN * Are you blind or do you have serious difficulty seeing, even when wearing glasses? Answer Date of Assessment Author No 10/20/2023 9:22 AM Nba Wynn RN * Do you have serious difficulty walking or climbing stairs? (5 years old or older) Answer Date of Assessment Author No 10/20/2023 9:22 AM Nba Wynn RN * Do you have difficulty dressing or bathing? (5 years old or older) Answer Date of Assessment Author No 10/20/2023 9:22 AM Nba Wynn RN * Because of a physical, mental, or emotional condition, do you have difficulty doing errands alone such as visiting a doctors office or shopping? (15 years old or older) Answer Date of Assessment Author No 10/20/2023 9:22 AM Nba Wynn RN documented as of this encounter Mental Status * Because of a physical, mental, or emotional condition, do you have serious difficulty concentrating, remembering, or making decisions? (5 years old or older) Answer Entry Date Author No 10/20/2023 9:22 AM Nba Wynn RN documented in this encounter Miscellaneous Notes * Telephone Encounter - Usha Michaels MD - 03/20/2024 4:57 PM ESTSigned Prescriptions: Disp Refills clonazePAM 0.5 MG Oral Tablet (KlonoPIN) 60 Tab*0 Sig: TAKE 1 OR2 TABLETS BY MOUTH AT BEDTIME for sleepAuthorizing Provider: USHA MICHAELS * Telephone Encounter - Candace Krishnan [facility] - 03/20/2024 4:29 PM EST Pending Prescriptions: Disp Refills clonazePAM 0.5 MG Oral Tablet (KlonoPIN) 60 Tab*0 Sig: TAKE 1 OR 2 TABLETS BY MOUTH AT BEDTIME for sleep * Telephone Encounter - Candace Krishnan [facility] - 03/20/2024 4:27 PM EST I have reviewed the patients controlled substance dispensing history in the Prescription Drug Monitoring Program in compliance with the [facility] regulations before prescribing a controlled substance. PDMP checked on 03/20/2024. Pending Prescriptions: Disp Refills clonazePAM 0.5 MG Oral Tablet (KlonoPIN) 60 Tab*0 Sig: TAKE 1 OR 2 TABLETS BY MOUTH AT BEDTIME for sleep Last Visit: 01/28/2024 (in office), Visit date not found (telemedicine) Next Visit: Visit date not found Date medication was last filled: 02/13/24 Date medication is due for refill: 03/13/24 Pharmacy: [id number] [facility] Is this request for a controlled substance? Yes and Urine Drug Screen Not completed Toxicology results: No results found. However, due to the size of the patient record, not all encounters were searched.Please check Results Review for a complete set of results. Please approve if appropriate. Thanks, Candace Krishnan [facility] Clinical Pharmacist [facility] ([facility]) [phone] documented in this encounter Plan of Treatment Upcoming Encounters Date Type Department Care Team (Late st Contact Info) Description 04/09/2024 11:30 AM EST Scheduled Telephone [facility], [facility] [address] [facility] [place] [address] Teresa Johnson, RDN [address] [facility] [place] [address] 04/24/2024 4:00 PM EST Home Visit [facility], [facility] [address] [facility] [place] [address] Aron Schmid, GUS [address] [facility] [place] [address] 05/27/2024 6:20 PM EST [facility] [address] [place] [address] Usha Michaels MD [address] [place] [address] 06/26/2024 1:40 PM EST Office Visit Neurology [facility] [address] [place] [address] Darron Calvillo MD [address] [place] [address] 07/08/2024 10:30 AM EST Office Visit Cardiology, [facility] [address] [facility] [place] [address] Marcia Collins CRNP [address] [facility] [place] [address] 10/24/2024 2:00 PM EDT Office Visit Dermatology [facility] [address] [place] [address] Mitchell Mack MD [address] [facility] [place] [address] Scheduled Procedures Name Priority Associated Diagnoses Date/Ti me COLONOSCOPY FLEXIBLE PROXIMAL DIAGNOSTIC Recall History of colon polyps Health Maintenance Due Date Last Done Comments Alpha-1 Antitrypsin 1963 Colonoscopy 03/20/2020 03/20/2019, 03/07, 10/15/2017, Additional history exists Adult Wellness Visit 10/27/2022 10/27/2021, 10/16/19 21 *COPD SEVERITY VERIFIED BY PFT 05/28/2023 COVID-19 Vaccine ( season) 2024 02/15/2022, 10/06/2021, 03/02/2021, Additional history exists Influenza Vaccine (FLU shot) (#1) 2024 04/24/2023, 01/10/2022, 02/02/2021, Additional history exists Depression Monitoring 01/10/2024 01/09/2023 HbA1c 10/20/2024 10/21/2023, 07/05, 07/05/2022, Additional history exists GFR 10/24/2024 10/25/2023, 10/05, 10/23/2023, Additional history exists O2 ASSESSMENT COMPLETED IN PAST YEAR FOR COPD 03/19/2025 03/19/2024 Albumin/Creatinine Ratio 07/17/2026 07/18/2023, 09/05 DTap/Tdap Vaccines (3 - Td or Tdap) 08/26/2028 08/26/2018, 01/27/2008 Pneumococcal Vaccine: 65+ Years Completed 02/02/2015, 01/24/2010, 03/02/2001 RETIRED - COLONOSCOPY-ANNUAL AGES 18-100 Discontinued 03/20/2019, 03/20/2019, 10/15/2017, Additional history exists Zoster Vaccines Completed 06/07/2019, 12/2018, 02/03/2009 HPV (Gardasil) Vaccine Aged Out No lo nger eligible based on patient's age to complete this topic Hepatitis B Vaccine Aged Out No longe r eligible based on patient's age to complete this topic MENINGOCOCCAL (MENACTRA/MENVEO) Aged Out No longer eligible based on patient's age to complete this topic documented as of this encounter Medical Devices Not on filedocumented as of this encounter Visit Diagnoses Diagnosis Chronic coronary artery disease- Primary Coronary atherosclerosis of unspecified type of vessel, [place] or graft HTN, goal below 140/90 Unspecified essential hypertension Parkinson's disease, unspecified whether dyskinesia present, unspecified whether manifestations fluctuate (HCC) PVD (peripheral vascular disease) (HCC) Peripheral vascular disease, unspecified Adjustment disorder with mixed anxiety and depressed mood Advanced care planning/counseling discussion Other specified counseling Sleep disorder Sleep disturbance, unspecified Adjustment disorder with mixed anxiety and depressed mood documented in this encounter Advance Directives * Full Code (Latest Code Status on File) Date Activated Date Inactivated Comments 10/20/2023 10:03 AM 10/26/2023 1:07 AM This order reflects the patients wishes and were consensually agreed upon. Question Answer Comments Discussion of Advance Directives occurred with: Patient Care Teams Transitional Living Specialist Relationship Specialty Start Date End Date Usha Michaels MD [address] [place] [address] PCP - General Family Medicine 03/05/17 documented as of this encounter
--- OUTSIDE RECORDS SUMMARY | 2024-03-26 07:07 | External Medical Summary | Summary of Care ---
Author Name Unknown Organization [facility] Address [address] [facility] [place] [address] Phone [phone] Care Team Providers Care Field Artillery Targeting Technician Name Role Phone Kaz Robledo MD Primary Care Provider +1- [phone] Reason for Visit * Reason Onset Date Comments Forms Request 03/20/2024 Encounter Details Date Type Department Care Team (Late st Contact Info) Description 03/20/2024 Telephone [facility] [address] [place] [address] Kaz Robledo MD [address] [place] [address] Forms Request Allergies Active Allergy Reactions Criticality Noted Date [...] Tablet Delayed ReleaseIndications :Coronary artery disease involving [place] tribes coronary artery of [place] tribes heart without angina pectoris Take 1 Tablet [...] stenosis, asymptomatic, right 12/19/2023 Personal history of [place] (myocardial infarction) 0 10/20/2023 Overview (12/12/2023): 10/20/23 [...] closely with cardiology Continues cardiac rehab via [facility] Dyslipidemia, goal LDL below 100 [...] 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 Study Titile: Genomic Markers for Patients with Cardiovascular Disease Project #[id number] PI: Radha Yepez MD Please call [phone] with study related questions GENOMICS CARDIO RESEARCH OTHER*[id number] 06/04/2009 06/13/2016 Overview (08/20/2009): Renamed Per Clinical Trials Billing Project. Study Titile: Genomic Markers for Patients with Cardiovascular Disease Project #[id number] PI: Radha Yepez MD Please call [phone] with study related questions Benign neoplasm of [...] 02/02/2015 Pneumococcal Polysaccharide PPV23 (Pneumovax) 01/24/2010,03/02/2001 Seasonal Influenza Vac., MDV , IM, 0.5 mL (Fluzone) 01/21/2014,01/15/2013,01/20/2012,01/23,01/24/2010,01/20/2009,03/09/2008 ,02/06/2007,03/17/2006,02/20/2005,02/05,03/09/1999 Seasonal Influenza, PF, 6 M & above, [...] Telephone Encounter - Alis Santa LPN - 03/20/2024 6:55 PM EST Forms were placed on provider's desk this evening for review. Thanks * Telephone Encounter - Kaz Robledo MD - 03/20/2024 5:15 PM EST I don't know anything about this - will need to see the forms and determine if ov needed * Telephone Encounter - Sajan Prakash OSA - 03/20/2024 4:40 PM EST Patients daughter dropped off forms that need filled out and E-mailed to Wendy Kerr. Email provided on card. Patients Daughter is requesting she receive a call when it is emailed. Name and phonenumber also provided on form documented in this encounter Plan of Treatment Upcoming Encounters Date Type Department Care Team (Late st Contact Info) Description 04/09/2024 11:30 AM EST Scheduled Telephone [facility], [facility] [address] [facility] [place] [address] Teresa Johnson RDN [address] [place] [facility] [place] [address] 04/24/2024 4:00 PM EST Home Visit [facility], [facility] [address] [facility] [place] [address] Aron Schmid, RN 132 [facility] [place] [address] 05/27/2024 6:20 PM EST Office Visit [facility] [address] [place] [address] Kaz Robledo MD [address] [place] [address] 06/26/2024 1:40 PM EST Office Visit Neurology [facility] [place] [address] [place] [address] Darron Calvillo MD [address] [place], [place] [id number] 07/08/2024 10:30 AM EST Office Visit Cardiology, [facility] [address] [place] [address] Marcia Collins CRNP [address] [place] [address] 10/24/2024 2:00 PM EDT Office Visit Dermatology [facility] [address] [place] [address] Mitchell Mack MD [address] [place] [address] Scheduled Procedures Name Priority Associated Diagnoses Date/Ti [...] Not on filedocumented as of this encounter Advance Directives * Full Code (Latest Code Status on File) Date Activated Date Inactivated Comments 10/20/2023 10:03 AM 10/26/2023 1:07 AM This order reflects the patients wishes and were consensually agreed upon. Question Answer Comments Discussion of Advance Directives occurred with: Patient Care Teams Field Artillery Targeting Technician Relationship Specialty Start Date End Date Kaz Robledo MD [address] [place] [address] PCP - General Family Medicine 03/05/17 documented as of this encounter
--- OUTSIDE RECORDS SUMMARY | 2024-03-26 07:07 | External Medical Summary | Summary of Care ---
Author Name Unknown Organization [facility] Address [address] [place] [facility] [place] [address] Phone [phone] Care Team Providers Care Purification Operator Name Role Phone Kaz Robledo MD Primary Care Provider +1- [phone] Reason for Visit * Reason Onset Date Comments Forms Request 03/20/2024 Encounter Details Date Type Department Care Team (Late st Contact Info) Description 03/20/2024 Telephone [facility] [address] [place] [address] Kaz Robledo MD [address] [place] [address] Forms Request Allergies Active Allergy Reactions Criticality Noted Date Comments Atorvastatin Muscle pain 12/11/2016 Bee Stings 02/21/1999 Hives,intense itching,edema Gabapentin 10/02/2023 "Couldn't handle it" documented as of this encounter (statuses as of 03/21/2024) Medications CALCIUM 500 MG PO TABS Take [...] Tablet Delayed ReleaseIndications :Coronary artery disease involving three affiliated coronary artery of three affiliated heart without angina pectoris Take 1 Tablet [...] as of this encounter (statuses as of 03/21/2024) Active Problems Problem Noted Date Diagnosed Date Carotid stenosis, asymptomatic, right 12/19/2023 Personal history of [place] (myocardial infarction) 0 10/20/2023 Overview (12/12/2023): 10/20/23 [...] as of this encounter (statuses as of 03/21/2024) Resolved Problems Problem Noted Date Diagnosed Date [...] disorder 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 Study Titile: Genomic Markers for Patients with Cardiovascular Disease Project #[id number] PI: Radha Yepez MD Please call [phone] with study related questions GENOMICS CARDIO RESEARCH OTHER*[id number] 06/04/2009 06/13/2016 Overview (08/20/2009): Renamed Per Clinical Trials Billing Project. Study Titile: Genomic Markers for Patients with Cardiovascular Disease Project #[id number] PI: Radha Yepez MD Please call [phone] with study related questions Benign neoplasm of [...] as of this encounter (statuses as of 03/21/2024) Immunizations Name Administration Dates Next Due COVID-19 [...] encounter Miscellaneous Notes * Telephone Encounter - Shreya Castellano MED OLIVIA - 03/21/2024 12:17 PM EST Faxed finished paperwork to [facility] at [place]. Called and spoke with patient's daughter to let her know that the paperwork was faxed successfully. * Telephone Encounter - Alis Santa LPN [...] AM EST Scheduled Telephone [facility], [facility] [address] [facility] [place] [address] Teresa Johnson RDN [address] [facility] [place] [address] 04/24/2024 4:00 PM EST Home Visit [facility], [facility] [address] [place] [address] Aron Schmid, RN [address] [place] [address] 05/27/2024 6:20 PM EST Office Visit [facility]Note [facility] [address] [facility] [place] [address] Kaz Robledo MD [address] [place] [address] 06/26/2024 1:40 PM EST Office Visit Neurology [facility] [address] [place] [address] Darron Calvillo MD [address] [place] [address] 07/08/2024 10:30 AM EST Office Visit Cardiology, [facility] [address] [place] [address] Marcia Collins CRNP [address] [place] [address] 10/24/2024 2:00 PM EDT Office Visit Dermatology [facility] [address] [facility] [place] [address] Mitchell Mack MD [address] [place] [address] Scheduled Procedures Name Priority Associated Diagnoses Date/Ti [...] COPD 03/19/2025 03/19/2024 Albumin/Creatinine Ratio 07/17/2026 07/18/2023, 05/2 10/2022 DTap/Tdap Vaccines (3 - Td or Tdap) [...] Advance Directives occurred with: Patient Care Teams Purification Operator Relationship Specialty Start Date End Date Kaz Robledo MD [address] [place] [address] PCP - General Family Medicine 03/05/17 documented as of this encounter
--- OUTSIDE RECORDS SUMMARY | 2024-03-26 07:07 | External Medical Summary | Summary of Care ---
Author Name Unknown Organization [facility] Address [address] [facility] [place] [address] Phone [phone] Care Team Providers Care Cytology Laboratory Manager Name Role Phone Kaz Robledo MD Primary Care Provider +1- [phone] Reason for Visit * Reason Onset Date Comments Forms Request 03/20/2024 Encounter Details Date Type Department Care Team (Late st Contact Info) Description 03/20/[address] [facility] [address] [place] [address] Kaz Robledo MD [address] [place] [address] Forms Request Allergies Active Allergy [...] Tablet Delayed ReleaseIndications :Coronary artery disease involving [place] coronary artery of [place] heart without angina pectoris Take 1 Tablet [...] stenosis, asymptomatic, right 12/19/2023 Personal history of [place] (myocardial infarction) 0 10/20/2023 Overview (12/12/2023): 10/20/23 [...] 09/03/2017 Genetic Sleep Disorder [facility] Other*[id number] 06/26/2011 12/08/2015 EXAMINATION OF PARTICIPANT I N CLINICAL TRIAL-Genomics 06/04/2009 08/20/2009 Overview (08/20/2009): Renamed Per Clinical Trials Billing Project. Study Titile: Genomic Markers for Patients with Cardiovascular Disease Project #[id number] PI: Radha Yepez MD Please call [phone] with study related questions GENOMICS CARDIO RESEARCH OTHER*[id number] 06/04/2009 06/13/2016 Overview (08/20/2009): Renamed Per Clinical Trials Billing Project. Study Titile: Genomic Markers for Patients with Cardiovascular Disease Project #[id number] PI: Radha Yepez MD Please call [phone] with study related questions Benign neoplasm of [...] AM EST Scheduled Telephone [facility], [facility] [address] [facility] [place] [address] Teresa Johnson RDN [address] [place] [facility] [place] [address] 04/24/2024 4:00 PM EST Home Visit [facility], [facility] [address] [facility] [place] [address] Aron Schmid, RN 132 [facility] [place] [address] 05/27/2024 6:20 PM EST Office Visit [facility] [address] [place] [address] Kaz Robledo MD [address] [place] [address] 06/26/2024 1:40 PM EST Office Visit Neurology [facility] [place] 200 [place] [address] Darron Calvillo MD [address] [place], [place] [address] 07/08/2024 10:30 AM EST Office Visit Cardiology, [facility] [address] [place] [address] Marcia Collins CRNP [address] [place] [address] 10/24/2024 2:00 PM EDT Office Visit Dermatology [facility] [address] [place] [address] Mitchell Mack MD [address] [place] [address] Scheduled Procedures Name Priority Associated Diagnoses Date/Ti [...] Advance Directives occurred with: Patient Care Teams Cytology Laboratory Manager Relationship Specialty Start Date End Date Kaz Robledo MD [address] [place] [address] PCP - General Family Medicine 03/05/17 documented as of this encounter
--- OUTSIDE RECORDS SUMMARY | 2024-03-26 07:07 | External Medical Summary | Summary of Care ---
Author Name Unknown Organization [facility] Address [address] [facility] [place] [address] Phone [phone] Care Team Providers Care Drapery Head Former Name Role Phone Kaz Robledo MD Primary Care Provider +1- [phone] Reason for Visit * Reason Onset Date Comments Forms Request 03/20/2024 Encounter Details Date Type Department Care Team (Late st Contact Info) Description 03/20/2024 Telephone [facility] [address] [place] [address] Kaz Robledo MD [address] [place] [address] Forms Request Allergies Active Allergy [...] Tablet Delayed ReleaseIndications :Coronary artery disease involving [place] coronary artery of [place] heart without angina pectoris Take 1 Tablet [...] stenosis, asymptomatic, right 12/19/2023 Personal history of [place] (myocardial infarction) 0 10/20/2023 Overview (12/12/2023): 10/20/23 [...] 02/15/2012 09/03/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 Study Titile: Genomic Markers for Patients with Cardiovascular Disease Project #[id number] PI: Radha Yepez MD Please call [phone] with study related questions GENOMICS CARDIO RESEARCH OTHER*[id number] 06/04/2009 06/13/2016 Overview (08/20/2009): Renamed Per Clinical Trials Billing Project. Study Titile: Genomic Markers for Patients with Cardiovascular Disease Project #[id number] PI: Radha Yepez MD Please call [phone] with study related questions Benign neoplasm of [...] encounter Miscellaneous Notes * Telephone Encounter - Sajan Prakash OSA [...] AM EST Scheduled Telephone [facility], [facility] [address] [facility] [place] [address] Teresa Johnson RDN [address] [facility] [place] [address] 04/24/2024 4:00 PM EST Home Visit [facility], [facility] 132 [facility] [place] [address] Aron Schmid, RN 132 [place] [address] 05/27/2024 6:20 PM EST Office Visit [facility] [address] [place] [address] Kaz Robledo MD [address] [place] [address] 06/26/2024 1:40 PM EST Office Visit Neurology [facility] [address] [place] [address] Darron Calvillo MD [address] [place] [address] 07/08/2024 10:30 AM EST Office Visit Cardiology, [facility] [address] [facility] [place] [address] Marcia Collins CRNP [address] [facility] [place] [address] 10/24/2024 2:00 PM EDT Office Visit Dermatology [facility] [address] [place] [address] Mitchell Mack MD [address] [place] [address] Scheduled Procedures Name Priority Associated Diagnoses Date/Ti [...] Advance Directives occurred with: Patient Care Teams Drapery Head Former Relationship Specialty Start Date End Date Kaz Robledo MD [address] [facility] [place] [address] PCP - General Family Medicine 03/05/17 documented as of this encounter
--- OUTSIDE RECORDS SUMMARY | 2024-03-26 07:07 | External Medical Summary | Summary of Care ---
Author Name Unknown Organization [facility] Address [address] [place] [place] [address] Phone [phone] Care Team Providers Care Prepress Proofer Name Role Phone Kaz Robledo MD Primary Care Provider +1- [phone] Reason for Visit * Reason Onset Date Comments Forms Request 03/20/2024 Encounter Details Date Type Department Care Team (Late st Contact Info) Description 03/20/2024 Telephone [facility] [address] [place] [address] Kaz Robledo MD [address] [place] [address] Forms Request Allergies Active Allergy [...] Tablet Delayed ReleaseIndications :Coronary artery disease involving council coronary artery of council heart without angina pectoris Take 1 Tablet [...] stenosis, asymptomatic, right 12/19/2023 Personal history of [place] (myocardial infarction) 0 10/20/2023 Overview (12/12/2023): 10/20/23 [...] disorder 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 Study Titile: Genomic Markers for Patients with Cardiovascular Disease Project #[id number] PI: Radha Yepez MD Please call [phone] with study related questions GENOMICS CARDIO RESEARCH OTHER*[id number] 06/04/2009 06/13/2016 Overview (08/20/2009): Renamed Per Clinical Trials Billing Project. Study Titile: Genomic Markers for Patients with Cardiovascular Disease Project #[id number] PI: Radha Yepez MD Please call [phone] with study related questions Benign neoplasm of [...] encounter Miscellaneous Notes * Telephone Encounter - Kaz Robledo MD [...] AM EST Scheduled Telephone [facility], [facility] [address] [facility] [place] [address] Teresa Johnson RDN [address] [facility] [place] [address] 04/24/2024 4:00 PM EST Home Visit [facility], [facility] [address] [facility] [place] [address] Aron Schmid, GUS [address] [facility] [place] [address] 05/27/2024 6:20 PM EST Office Visit [facility] [address] [place] [address] Kaz Robledo MD [address] [place] [address] 06/26/2024 1:40 PM EST Office Visit Neurology [facility] [address] [facility] [address] Darron Calvillo MD [address] [place], [place] [address] 07/08/2024 10:30 AM EST Office Visit Cardiology, [facility] 132 [facility] [place] [address] Marcia Collins CRNP 132 [facility] [place] [address] 10/24/2024 2:00 PM EDT Office Visit [facility] 200 [facility] [place] [address] Mitchell Mack MD [address] [facility] [place] [address] Scheduled Procedures Name Priority Associated Diagnoses Date/Ti [...] Advance Directives occurred with: Patient Care Teams Prepress Proofer Relationship Specialty Start Date End Date Kaz Robledo MD [address] [place] [address] PCP - General Family Medicine 03/05/17 documented as of this encounter
--- OUTSIDE RECORDS SUMMARY | 2024-03-26 07:08 | External Medical Summary | Summary of Care ---
Author Name Unknown Organization [facility] Address [address] [address] Phone [phone] Care Team Providers Care Jewelry Setter Name Role Phone Kaz Robledo MD Primary Care Provider [phone]- [phone] Encounter Details Date Type Department Care Team (Late st Contact Info) Description 03/19/2024 2:30 PM EST Home Visit [facility], [facility] [address] [place] [address] Aron Schmid, RN [address] [place] [address] Allergies Active Allergy Reactions Criticality Noted Date Comments Atorvastatin Muscle pain 12/11/2016 Bee Stings 02/21/1999 Hives,intense itching,edema Gabapentin 10/02/2023 "Couldn't handle it" documented as of this encounter (statuses as of 03/19/2024) Medications CALCIUM 500 MG PO TABS Take [...] day 850 g 1 12/30/19 21 Active Lisinopril 40 MG Oral Tablet Take 1 Tablet by mouth in the morning 90 Tablet 3 4 12:25 PM EDT 04/24/20 23 Active Citalopram Hydrobromide 20 MG Oral Tablet (CeleXA)Indication s:Major depressive disorder, recurrent episode, mild (HCC) Take 1 Tablet by mouth in the morning. 90 Tablet 3 4 9:55 AM EDT 04/24/20 23 Active Metoprolol Succinate ER 25 MG Oral Tablet Extended Release 24 Hour (toPROL XL) Take 1 Tablet by mouth at bedtime. 90 Tablet 3 4 1:13 PM EDT 04/24/20 23 Active Fluocinonide 0.05 % External SolutionIndication s:Seborrheic [...] prior to injection. 2 Each 11 01/31/20 Active clonazePAM 0.5 MG Oral Tablet (KlonoPIN)Indicati ons:Sleep disorder,Adjustmen t disorder with mixed anxiety and depressed mood TAKE 1 OR 2 TABLETS BY MOUTH AT BEDTIME for sleep 60 Tablet 02/12/20 24 Active Carbidopa-Levodopa ER 25-100 MG Oral Tablet Extended Release (Sinemet CR) Take 1 Tablet by mouth in the morning and 1 Tablet before bedtime. 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 90 Tablet 3 03/18/20 24 Active documented as of this encounter (statuses as of 03/19/2024) Active Problems Problem Noted Date Diagnosed Date Carotid stenosis, asymptomatic, right 12/19/2023 Personal history of [place] (myocardial infarction) 0 10/20/2023 Overview (12/12/2023): 10/20/23 [...] as of this encounter (statuses as of 03/19/2024) Resolved Problems Problem Noted Date Diagnosed Date [...] Disorder [facility]ea [facility] Other*[id number] 06/26/2011 12/08/2015 EXAMINATION OF PARTICIPANT I N CLINICAL TRIAL-Genomics 06/04/2009 08/20/2009 Overview (08/20/2009): Renamed Per Clinical Trials Billing Project. Study Titile: Genomic Markers for Patients with Cardiovascular Disease Project #[id number] PI: Radha Yepez MD Please call [phone] with study related questions GENOMICS CARDIO RESEARCH OTHER*[id number] 06/04/2009 06/13/2016 Overview (08/20/2009): Renamed Per Clinical Trials Billing Project. Study Titile: Genomic Markers for Patients with Cardiovascular Disease Project #[id number] PI: Radha Yepez MD Please call [phone] with study related questions Benign neoplasm of [...] as of this encounter (statuses as of 03/19/2024) Immunizations Name Administration Dates Next Due COVID-19 [...] Sign Reading Time Taken Comments Blood Pressure 112/64 03/19/2024 1:02 PM EST Pulse 54 03/19/2024 1:02 PM EST Temperature 36.8 C (98.3 F) 03/19/2024 1:02 PM ES T Respiratory Rate 18 03/19/2024 1:02 PM EST Oxygen Saturation 97% 03/19/2024 1:02 PM EST Inhaled Oxygen Concentration - - Weight - - Height - - Body Mass Index - - documented in this encounter Functional Status * Are you [...] Nba Wynn RN documented in this encounter Progress Notes * Aron Schmid RN - 03/19/2024 12:21 PM EST fCurrent Concerns: Situation: Pt seen today by [facility] director learning and development for routine follow-up visit. Background: PMH includes: PVD, HTN, Carotid stenosis, COPD, Parkinson's disease, Hx NSTEMI on 10/20/23 Assessment: Pt and daughter Tiffanie are at odds- have been in ongoing disagreement x weeks-months Tiffanie wants pt to go to [facility], where pt resides, as she feels pt is "a mess" per pt Pt reports Tiffanie wants pt to start a new medication- Carbidopa Levodopa for Parkinson's and wants pt to be in a facility when he begins taking so that pt can be monitored for side effects as pt reports he started this medication previously and "it wiped me out entirely" This RN speaks with pt regarding going to [facility]- as this seems to be the reasonable and safe option Pt reports main reason for not wanting to go to [facility] is that they will not allow pt to continue getting medication through [facility] where associated med cost is $0- pt reports at [facility] they require he receives meds through [facility] and estimated med cost is $300/month, on top ofwhat he will have to pay for the [facility] stay, and also maintaining paying bills to keep home in running order Pt reports that he was able to work with [facility] and is able to get pill packs from [facility] that [facility] is willing to use Pt reports [facility] has an open bed for him currently and he does plan on going but "Is working through the numbers and waiting on meds" Pt reports that he believes he will be admitted to [facility] within the next week, depending if [facility] receives all meds Last week this RN was contacted by Int[facility]- Tiffanie called regarding pt not being willing to go to [facility] that time This RN was off, however situation was addressed by SUPERVISOR BLOOD DONOR RECRUITERS- see Karen Lantigua note from 03/10/24 Per chart review, no documentation to suggest pt is not of sound mind regarding decision of when and whether or not he goes to [facility] As per this ict sales representative of pt at time of visit, no notable changes in behavior, attitude since this RN initial visit with pt and no self care deficits identified At time of visit Landen does not appear to be a danger to himself or others Landen affirms that relationship with Tiffanie has been "sanjana" for many years and that there are underlying issues void of this situation that pt feels are playing role Pt called daughter Tiffanie and placed on speaker phone during visit as per Tiffanie's request Tiffanie would like this RN to assist pt with Repatha injection Pt became angered with Tiffanie and states "Its not that simple" Pt states the medication is stored in the fridge, and needs to be laid out and left to come down toroom temp and then given Pt reports he has self administered Repatha x last 5 years and does not need help Pt states he took the Repatha injection on 03/14 and it is not time for him to take again Pt ended call with Tiffanie [facility] Saw Licensed Retail Supervisor yesterday Pt states no notable changes Pt denies SOB, CP at time of visit Pt continues to drive Pt reports he is able to ambulate out of truck and through parking lot into [facility] to see and back out without difficulty Pt does use an electric scooter or electric cart in grocery stores Pt states "I think I still do okay for myself, but I guess not every one feels that way" Physical Exam: Physical Exam Cardiovascular: Rate and Rhythm: Normal rate and regular rhythm. Pulmonary: Effort: Pulmonary effort is normal. Breath sounds: Normal breath sounds. Abdominal: General: Bowel sounds are normal. Palpations: Abdomen is soft. Musculoskeletal: General: Normal range of motion. Skin: General: Skin is warm and dry. Capillary Refill: Capillary refill takes 2 to 3 seconds. Neurological: General: No focal deficit present. Mental Status: He is alert and oriented to person, place, and time. Mental status is at baseline. Psychiatric: Mood and Affect: Mood normal. Behavior: Behavior normal. Review of Systems: Review of Systems Constitutional: Negative. Negative for chills, fatigue and fever. HENT: Negative. Eyes: Negative. Respiratory: Negative for cough and shortness of breath. Gastrointestinal: Negative. Negative for diarrhea, nausea and vomiting. Endocrine: Negative. Genitourinary: Negative. Negative for dysuria, flank pain and urgency. Musculoskeletal: Positive for gait problem. Skin: Negative. Neurological: Positive for tremors. Negative for dizziness, syncope, light- headedness and headaches. Psychiatric/Behavioral: Negative. Care Plan Goal Progress: Patient will maintain manageable anxiety level. (Progressing) Start: 01/22/24 Expected End: 03/06/24 Pt will report decrease in physical symptoms of stress. (Progressing) Start: 01/22/24 Expected End: 03/06/24 Orders Placed: No orders of the defined types were placed in this encounter. Care Gaps: Care Gaps Care gaps closed this contact:: Education;Medications (03/19/24 1256) Type of education: Clinical/disease (03/19/24 1256) Type of medication care gap: Medication adherence;Medication optimization (03/19/24 1256) documented in this encounter Plan of Treatment Upcoming Encounters Date Type Department Care Team (Late st Contact Info) Description 04/09/2024 11:30 AM EST Scheduled Telephone [facility], [facility] [address] [address] [place] [address] Teresa Johnson RDN [address] [place] [address] 04/24/2024 4:00 PM EST Home Visit [facility], [facility] [address] [facility] [place] [address] Aron Schmid, RN [address] [facility] [place] [address] 05/27/2024 6:20 PM EST Office Visit [facility] [address] [place] [address] Kaz Robledo MD [address] [place] [address] 06/26/2024 1:40 PM EST Office Visit Neurology [facility] [place] [address] [facility] [place] [address] Darron Calvillo MD [address] [facility] [place] [address] 07/08/2024 10:30 AM EST Office Visit Cardiology, [facility] [address] [place] [address] Marcia Collins CRNP [address] [place] [address] 10/24/2024 2:00 PM EDT Office Visit Dermatology [facility] [address] [facility] [place] [address] Mitchell Mack MD [address] [facility] [place] [address] Scheduled Procedures Name Priority Associated Diagnoses Date/Ti [...] Advance Directives occurred with: Patient Care Teams Jewelry Setter Relationship Specialty Start Date End Date Kaz Robledo [facility] [address] [facility] [address] PCP - General Family Medicine 03/05/17 documented as of this encounter
--- OUTSIDE RECORDS SUMMARY | 2024-03-26 07:08 | External Medical Summary | Summary of Care ---
Author Name Unknown Organization [facility] Address [address] [place] [address] Phone [phone] Care Team Providers Care Employee'S Representative Name Role Phone Usha Michaels MD Primary Care Provider [phone]- [phone] Reason for Visit * Reason Onset Date Comments Medication Refill 03/17/2024 Encounter Details Date Type Department Care Team (Late st Contact Info) Description 03/17/2024 Refill [facility] [address] [place] [address] Usha Michaels MD [address] [place] [address] Major depressive disorder, recurrent episode, mild (HCC) Allergies Active Allergy Reactions Criticality Noted Date Comments Atorvastatin Muscle pain 12/11/2016 Bee Stings 02/21/1999 Hives,intense itching,edema Gabapentin 10/02/2023 "Couldn't handle it" documented as of this encounter (statuses as of 03/19/2024) Medications CALCIUM 500 MG PO TABS Take by mouth daily. 60 Tab 0 010 Active NITROGLYCERIN 0.4 MG SL SUBLIndications:S table angina (HCC) 1 TAB EVERY 5 MIN NEEDED, UP TO 3 PER EPISODE 25 Tab 5 014 Active docusate sodium (COLACE) 100 MG Capsule Take 1 Capsule by mouth daily as needed. Active Ketoconazole 2 % External CreamIndications: Seborrheic dermatitis Apply to face 2-3 x's per week. 30 g 4 020 Active Diclofenac Sodium 1 % External GelIndications:Ac nulato pain of right shoulder Apply 4 gm topically to right shoulder 4 times a day 200 g 1 021 Active Polyethylene Glycol 3350 17 GM/SCOOP Oral Powder (MiraLax)Indicati ons:Chronic constipation Take 17 g by mouth daily. Dissolve one heaping tablespoon in 8 ounces of water or juice. If after one week, bowels are not moving well, take twice a day 850 g 1 021 Active Fluocinonide 0.05 % External SolutionIndicatio ns:Seborrheic dermatitis Apply to scalp daily Sunday thru as needed for redness and flaking 60 mL 2 05/28/19 24 12:57 PM EST 024 Active Ketoconazole 2 % External Shampoo (Nizoral)Indicati ons:Seborrheic dermatitis Apply to scalp 2-3 x's per week. 360 mL 5 05/28/19 24 12:57 PM EST 024 Active amLODIPine Besylate 10 MG Oral Tablet (Norvasc) TAKE ONE TABLET BY MOUTH EVERY MORNING 90 Tablet 3 01/12/20 24 9:15 AM EDT 024 2024 Active Clopidogrel Bisulfate 75 MG Oral Tablet (Plavix) Take 1 Tablet by mouth in the morning. Do not start before November 24, 2023. 90 Tablet 3 03/12/20 24 10:52 AM EST 024 Active Terazosin HCl 1 MG Oral Capsule (Hytrin)Indicatio ns:HTN, goal below 140/90 take one capsule by mouth at bedtime 90 Capsule 3 12/25/19 24 11:26 AM EDT 024 Active Melatonin 3 MG Oral Tablet Disintegrating Take 1 Tablet by mouth at bedtime. Active Isosorbide Mononitrate ER 30 MG Oral Tablet Extended Release 24 Hour (Imdur)Indication s:Chronic coronary artery disease,Stable angina (HCC) Take 3 Tablets by mouth in the morning. 300 Tablet 3 02/12/20 24 11:34 AM EDT 024 Active Repatha SureClick 140 MG/ML Subcutaneous Solution Auto-injector (evolocumab) Inject 140 mg under the skin every 14 days. Remove from refrigerator 30 minutes prior to injection. 2 Each Active clonazePAM 0.5 MG Oral Tablet (KlonoPIN)Indicat ions:Sleep disorder,Adjustme nt disorder with mixed anxiety and depressed mood TAKE 1 OR 2 TABLETS BY MOUTH AT BEDTIME for sleep 60 Tablet 024 Active Carbidopa-Levodop a ER 25-100 MG Oral Tablet Extended Release (Sinemet CR) Take 1 Tablet by mouth in the morning and 1 Tablet before bedtime. 180 Tablet 3 03/03/20 24 11:02 AM EDT Active Citalopram Hydrobromide 20 MG Oral Tablet (CeleXA)Indicatio ns:Major depressive disorder, recurrent episode, mild (HCC) Take 1 Tablet by mouth in the morning. 90 Tablet Active Lisinopril 40 MG Oral Tablet Take 1 Tablet by mouth in the morning. 90 Tablet Active Metoprolol Succinate ER 25 MG Oral Tablet Extended Release 24 Hour (toPROL XL) Take 1 Tablet by mouth at bedtime. 90 Tablet Active LOW-DOSE ASPIRIN 81 MG PO TABS Take 1 Tablet by mouth in the morning. 2023 Discontinued DAILY MULTIVITAMIN PO TABS 1 tablet daily 2023 Discontinued Folic Acid 400 MCG Tablet Take 1 Tablet by mouth in the morning. 30 Tab 0 016 2023 Discontinued(R efill) Coenzyme Q10 (CO Q-10) 400 MG CAPS Take 1 Cap by mouth once. 30 Cap 0 016 2023 Discontinued(R efill) Cholecalciferol (VITAMIN D) 1000 units Tablet Take 1 Tablet by mouth every other day. 018 2023 Discontinued Triamcinolone Acetonide 0.1 % External Cream (Aristocort)Indic ations:Hand erythema Apply topically to affected area 2 times a day. To affected area. 45 g 023 2023 Discontinued(R efill) Lisinopril 40 MG Oral Tablet Take 1 Tablet by mouth in the morning 90 Tablet 3 01/29/20 24 12:25 PM EDT 023 2023 Discontinued(R efill) Citalopram Hydrobromide 20 MG Oral Tablet (CeleXA)Indicatio ns:Major depressive disorder, recurrent episode, mild (HCC) Take 1 Tablet by mouth in the morning. 90 Tablet 3 03/06/20 24 9:55 AM EDT 023 2023 Discontinued(R efill) Metoprolol Succinate ER 25 MG Oral Tablet Extended Release 24 Hour (toPROL XL) Take 1 Tablet by mouth at bedtime. 90 Tablet 3 01/16/20 24 1:13 PM EDT 023 2023 Discontinued(R efill) documented as of this encounter (statuses as of 03/19/2024) Active Problems Problem Noted Date Diagnosed Date Carotid stenosis, asymptomatic, right 12/19/2023 Personal history of [place] (myocardial infarction) 0 10/20/2023 Overview (12/12/2023): 10/20/23 [...] closely with cardiology [facility] Dyslipidemia, goal LDL below 100 [...] 02/15/2012 09/03/2017 Genetic Sleep Disorder Resea [facility] Other*[id number] 06/26/2011 12/08/2015 EXAMINATION OF PARTICIPANT I N CLINICAL TRIAL-Genomics 06/04/2009 08/20/2009 Overview (08/20/2009): Renamed Per Clinical Trials Billing Project. Study Titile: Genomic Markers for Patients with Cardiovascular Disease Project #[id number] PI: Radha Yepez MD Please call [phone] with study related questions GENOMICS CARDIO RESEARCH OTHER*[id number] 06/04/2009 06/13/2016 Overview (08/20/2009): Renamed Per Clinical Trials Billing Project. Study Titile: Genomic Markers for Patients with Cardiovascular Disease Project #[id number] PI: Radha Yepez MD Please call [phone] with study related questions Benign neoplasm of [...] 30 Mcg, IM, 12 yrs and above (GIVTED) 02/15/2022 H1N1 2009 Influenza, IM 05/10/2009 Pneumococcal [...] of Assessment Author No 10/20/2023 9:22 AM ALLIET Nba Estes RN * Are you blind or do you have serious difficulty seeing, even when wearing glasses? Answer Date of Assessment Author No 10/20/2023 9:22 AM EDT Nba Estes RN * Do you have serious difficulty [...] of Assessment Author No 10/20/2023 9:22 AM EDT Nba Estes RN documented as of this encounter Mental Status * Because of a physical, mental, or emotional condition, do you have serious difficulty concentrating, remembering, or making decisions? (5 years old or older) Answer Entry Date Author No 10/20/2023 9:22 AM EDT Nba Estes RN documented in this encounter Miscellaneous Notes * Telephone Encounter - Kaley Arellano [facility] - 03/19/2024 3:02 PM EST Signed Prescriptions: Disp Refills Citalopram Hydrobromide 20 MG Oral Tablet *90 Tab*0 Sig: Take 1 Tablet by mouth in the morning.Authorizing Provider: USHA MICHAELS User: KALEY ARELLANO Lisinopril 40 MG Oral Tablet 90 Tab*0 Sig: Take 1 Tablet by mouth in the morning.Authorizing Provider: USHA MICHAELS User: KALEY ARELLANO Metoprolol Succinate ER 25 MG Oral Tablet *90 Tab*0 Sig: Take 1 Tablet by mouth at bedtime.Authorizing Provider: USHA MICHAELS User: KALEY ARELLANO * Telephone Encounter - Kaley Arellano [facility] - 03/19/2024 3:01 PM EST RX authorized. Zero refills given until upcoming appt. 05/27/24 Thank you, Kaley Arellano, PharmD Clinical Pharmacist [facility] 03/19/24 3:01 PM [phone] * Telephone Encounter - Jeannine Jin CPhT - 03/17/2024 1:59 PM EST Did you pend patient's preferred pharmacy and medication before forwarding?yes Pharmacy: [facility] [address] Pending Prescriptions: Disp Refills Citalopram Hydrobromide 20 MG Oral Tablet*90 Tab*3 Sig: Take 1 Tablet by mouth in the morning. Lisinopril 40 MG Oral Tablet 90 Tab*3 Sig: Take 1 Tablet by mouth in the morning. Metoprolol Succinate ER 25 MG Oral Tablet*90 Tab*3 Sig: Take 1 Tablet by mouth at bedtime. Last Visit: 01/28/2024 (in office), Visit date not found (telemedicine) Next Visit: Visit date not found If no future appointments scheduled, and last appointment is greater than a year ago, please schedule patient for a follow-up appointment Last date the medication was ordered: [id number] Is this request for a controlled substance?No Urine Drug Screen:No results found. However, due to the size of the patient record, not all encounters were searched. Please check Results Review for a complete set of results. Patient Phone Numbers Labs: Lab Results Component Value Date/Time CREAT 1.2 10/25/2023 05:39 AM CREAT 0.9 11/12/2019 08:36 AM POTASSIUM 4.3 10/25/2023 05:39 AM POTASSIUM 4.4 11/12/2019 08:36 AM TSH 1.04 08/24/2023 02:54 PM TSH 1.95 03/11/2020 08:32 AM LDL 87 10/21/2023 05:43 AM LDL 35 03/13/2020 10:11 AM LDL NOT APPLICABLE 03/13/2020 10:11 AM ALT 16 09/19/2022 01:57 PM ALT 15 11/12/2019 08:36 AM HGBA1C 5.7 (H) 10/21/2023 05:43 AM HGBA1C 5.9 06/27/2016 07:56 AM documented in this encounter Plan of Treatment Upcoming Encounters Date Type Department Care Team (Late st Contact Info) Description 04/09/2024 11:30 AM EST Scheduled Telephone [facility], [facility] [address] [facility] [place] [address] Teresa Johnson, RDN [address] [facility] [place] [address] 04/24/2024 4:00 PM EST Home Visit [facility], [facility] [address] [facility] [place] [address] Aron Schmid, GUS [address] [place] [address] 05/27/2024 6:20 PM EST Office Visit [facility] [address] [place] [address] Usha Michaels MD [address] [place] [address] 06/26/2024 1:40 PM EST Office Visit [facility]rology [facility] [address] [facility] [place] [address] Darron Calvillo MD [address] [place] [address] 07/08/2024 10:30 AM EST Office Visit Cardiology, [facility] [address] [facility] [place] [address] Marcia Collins CRNP [facility] [place] [address] 10/24/2024 2:00 PM EDT Office Visit Dermatology [facility] [address] [place] [address] Mitchell Mack MD [address] [facility] [place] [address] Scheduled Procedures Name Priority Associated Diagnoses Date/Ti [...] Coronary atherosclerosis of unspecified type of vessel, nulato or graft HTN, goal below 140/90 Unspecified essential hypertension Parkinson's disease, unspecified whether dyskinesia present, unspecified whether manifestations fluctuate (HCC) PVD (peripheral vascular disease) (HCC) Peripheral vascular disease, unspecified Adjustment disorder with mixed anxiety and depressed mood Advanced care planning/counseling discussion Other specified counseling Major depressive disorder, recurrent episode, mild (HCC) Major depressive disorder, recurrent episode, mild documented in this encounter Advance Directives * Full Code (Latest Code Status on File) Date Activated Date Inactivated Comments 10/20/2023 10:03 AM 10/26/2023 1:07 AM This order reflects the patients wishes and were consensually agreed upon. Question Answer Comments Discussion of Advance Directives occurred with: Patient Care Teams Employee'S Representative Relationship Specialty Start Date End Date Usha Michaels MD [address] [place] [address] PCP - General Family Medicine 03/05/17 documented as of this encounter
--- OUTSIDE RECORDS SUMMARY | 2024-03-26 07:08 | External Medical Summary | Summary of Care ---
Author Name Unknown Organization [facility] Address [address] [facility] [address] Phone [phone] Care Team Providers Care Account Services Coordinator Name Role Phone Kaz Robledo MD Primary Care Provider [phone] Reason for Referral * Social Care (Within 10 days (routine)) - Authorized Specialty Diagnoses / Procedures Referred By Yuan peterson Referred To Contact Coiled Tubing Supervisor Diagnoses Labile blood pressure Goals of care, counseling/discussion Marcia Collins CRNP [address] [place] [address] Phone: tel: fax: Referral ID Status Reason Start Date Expiration Date Visits Requested Visits Authorized [id number] Authorized Specialty Services Required 4 [phone] Question Answer Referral Priority Within 10 days (routine) Where should this appointment be scheduled? [facility] Role Home Improvement Advisor Home Improvement Advisor Referral Reason High Utilizer/Patient, Frail Elderly Comments Is patient being transitioned from [facility] to Complex Case Management? No Please contact patient's daughter: [phone] Reason for Visit * Reason Comments Hospital Follow-Up Hospital follow-up [facility] ER for chest pain Encounter Details Date Type Department Care Team (Late st Contact Info) Description 03/18/2024 2:30 PM EST Office Visit Cardiology, [facility] [address] [place] [address] Marcia Collins CRNP [address] [place] [address] Coronary artery disease involving tonawanda coronary artery of tonawanda heart without angina pectoris*; HTN, goal below 140/90; Labile blood pressure; Paroxysmal atrial flutter (HCC); Hyperlipidemia with target LDL less than 70; Carotid stenosis, asymptomatic, right; Goals of care, counseling/discussio n; Hand erythema Allergies Active Allergy Reactions Criticality Noted Date Comments Atorvastatin Muscle pain 12/11/2016 Bee Stings 02/21/1999 Hives,intense itching,edema Gabapentin 10/02/2023 "Couldn't handle it" documented as of this encounter (statuses as of 03/18/2024) Medications CALCIUM 500 MG PO TABS Take [...] a day 850 g 1 021 Active Lisinopril 40 MG Oral Tablet Take 1 Tablet by mouth in the morning 90 Tablet 3 01/29/20 24 12:25 PM EDT 023 Active Citalopram Hydrobromide 20 MG Oral Tablet (CeleXA)Indicatio ns:Major depressive disorder, recurrent episode, mild (HCC) Take 1 Tablet by mouth in the morning. 90 Tablet 3 03/06/20 24 9:55 AM EDT 023 Active Metoprolol Succinate ER 25 MG Oral Tablet Extended Release 24 Hour (toPROL XL) Take 1 Tablet by mouth at bedtime. 90 Tablet 3 01/16/20 24 1:13 PM EDT 023 Active Fluocinonide 0.05 % External SolutionIndicatio ns:Seborrheic [...] Tablet 3 03/03/20 24 11:02 AM EDT 024 Active Aspirin 81 MG Oral Tablet Delayed ReleaseIndication s:Coronary artery disease involving tonawanda coronary artery of tonawanda heart without angina pectoris Take 1 Tablet by mouth in the morning. 90 Tablet 3 Active Triamcinolone Acetonide 0.1 % External Cream (Aristocort)Indic ations:Hand erythema Apply topically to affected area 2 times a day 45 g Active Co Q-10 400 MG Oral Capsule Take 1 Capsule by mouth once a day 30 Capsule 024 2023 Active Multivitamin Adult Oral Tablet Take 1 Tablet by mouth in the morning. 90 Tablet 3 024 Active Folic Acid 400 MCG Oral Tablet Take 1 Tablet by mouth in the morning. 30 Tablet 024 Active Vitamin D3 25 MCG (1000 UT) Oral Tablet (Vitamin D3) Take 1 Tablet by mouth in the morning. 90 Tablet 3 024 Active LOW-DOSE ASPIRIN 81 MG PO TABS [...] 1 Tablet by mouth every other day. 2023 Discontinued Triamcinolone Acetonide 0.1 % External Cream (Aristocort)Indic ations:Hand erythema Apply topically to affected area 2 times a day. To affected area. 45 g 023 2023 Discontinued(R efill) documented as of this encounter (statuses as of 03/18/2024) Active Problems Problem Noted Date Diagnosed Date [...] closely with cardiology Continues cardiac rehab via [facility] rehab program Dyslipidemia, goal LDL below 100 04/15/2009 Overview (04/15/2009): Per Lipid Taxonomy. Hearing loss 07/09/2007 documented as of this encounter (statuses as of 03/18/2024) Resolved Problems Problem Noted Date Diagnosed Date [...] 02/15/2012 09/03/2017 Genetic Sleep Disorder [facility] Other*[id number] 06/26/2011 12/08/2015 EXAMINATION OF PARTICIPANT I N CLINICAL TRIAL-Genomics 06/04/2009 08/20/2009 Overview (08/20/2009): Renamed Per Clinical Trials Billing Project. Study Titile: Genomic Markers for Patients with Cardiovascular Disease Project #[id number] PI: Radha Yepez MD Please call [phone] with study related questions GENOMICS CARDIO RESEARCH OTHER*[id number] 06/04/2009 06/13/2016 Overview (08/20/2009): Renamed Per Clinical Trials Billing Project. Study Titile: Genomic Markers for Patients with Cardiovascular Disease Project #[id number] PI: Radha Yepez MD Please call [phone] with study related questions Benign neoplasm of [...] as of this encounter (statuses as of 03/18/2024) Immunizations Name Administration Dates Next Due COVID-19 [...] Sign Reading Time Taken Comments Blood Pressure 92/58 03/18/2024 2:38 PM EST Pulse 64 03/18/2024 2:38 PM EST Temperature - - Respiratory Rate 16 03/18/2024 2:38 PM EST Oxygen Saturation - - Inhaled Oxygen Concentration - - Weight 95 kg (209 lb 6.4 oz) 03/18/2024 2:38 PM EST Height - - Body Mass Index 30.05 01/28/2024 10:51 AM EDT documented in this encounter Functional Status * Are you deaf or do you have serious difficulty hearing? Answer Date of Assessment Author No 10/20/2023 9:22 AM EDT Nba Estes RN * Are you blind or do you have serious difficulty seeing, even when wearing glasses? Answer Date of Assessment Author No 10/20/2023 9:22 AM EDT Nba Estes RN * Do you have serious difficulty walking or climbing stairs? (5 years old or older) Answer Date of Assessment Author No 10/20/2023 9:22 AM EDT Nba Estes RN * Do you have difficulty dressing or bathing? (5 years old or older) Answer Date of Assessment Author No 10/20/2023 9:22 AM EDT Nba Estes RN * Because of a physical, mental, [...] Progress Notes * Marcia Collins CRNP - 03/18/2024 2:30 PM EST 03/18/2024 Cardiology Follow Up Primary Business Analyst Intern: JAGDISH Cardiac Problems: 1. 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 2. History of postprandial angina resolved. 3. Carotid occlusive disease. 4. Hypertension. 5. Hyperlipidemia. 6. Erectile dysfunction. 7. Peripheral arterial disease. 8. Subarachnoid/subdural hematoma. 9. History of intolerance to atorvastatin. HPI: Landen Camacho is a 79 year old male presents for close Cardiology follow up Patient was last seen in the office by the undersigned on 12/26/2023 feeling fair overall continuedwithin some labile blood pressures but nothing new or changing continues with an essential tremor however he is now following with Neurology and as of last week was recommended to start carbidopa levodopa for Parkinson's treatment. Patient also of note was recently in the Emergency Room at [facility] for suspicion of shingles as his was also recently diagnosed with shingles and he had been visiting her around that timeframe. Patient presents today feeling poorly. Patient's daughter Tiffanie is present with him and states the patient has increased fatigue and lack of energy. She is noticing a worsening tremor, poor appetite and just overall lack of drive. Patient endorses that he seems to experience a brain fog and is alsoendorsing increased anxiety. Patient has seen Neurology who would like patient to start carbidopa levodopa extended release for treatment of his Parkinson's symptoms however they have held off inferior of effects on blood pressure. Reassured patient and family that Parkinson's disease and labile blood pressures often coexist and that it is okay to start this medication to assess response from a neurological standpoint. Daughter does express great concern of patient's safety as he resides home alone and fears that if he would have a fall or sustain a fall due to low blood pressures that it could be catastrophic. She has talked to administration at [facility] to inquire about with [facility] has a lot of questions that unfortunately I am not able to answer. When asked if they have a caseworker as patient follows with a [facility] PCP she states that they do not and is unsure howto proceed. Blood pressure today is low normal and patient was asymptomatic at time of visit He continues to deny any chest pain pressure or palpitations no changes in breathing no complaints of syncope and no lower extremity edema Patient did have a recent ER visit in December 25, 2023 as home health sent him in for evaluation of low blood pressures and then a repeat ER visit just recently due to concern for possible shingles. REVIEW OF SYSTEMS: See HPI for pertinent [...] Current Outpatient Medications Medication Sig Dispense Refill CALCIUM 500 MG PO TABS Take by mouth daily. 60 Tab 0 NITROGLYCERIN 0.4 MG SL SUBL 1 TAB EVERY 5 MIN NEEDED, UP TO 3 PER EPISODE 25 Tab 5 docusate sodium (COLACE) 100 MG Capsule Take 1 Capsule by mouth daily as needed. Ketoconazole 2 % External Cream Apply to [...] well, taketwice a day 850 g 1 Lisinopril 40 MG Oral Tablet Take 1 [...] 2-3 x's per week. 360 mL 5 amLODIPine Besylate 10 MG Oral Tablet (Norvasc) TAKE ONE TABLET BY MOUTH EVERY MORNING 90 Tablet 3 Clopidogrel Bisulfate 75 MG Oral Tablet (Plavix) Take 1 Tablet by mouth in the morning. Do not start before November 24, 2023. 90 Tablet 3 Terazosin HCl 1 MG Oral Capsule (Hytrin) take one capsule by mouth at bedtime 90 Capsule 3 Melatonin 3 MG Oral Tablet Disintegrating Take 1 Tablet by mouth at bedtime. Isosorbide Mononitrate ER 30 MG Oral Tablet Extended Release 24 Hour (Imdur) Take 3 Tablets by mouth in the morning. 300 Tablet 3 Repatha SureClick 140 MG/ML Subcutaneous Solution Auto-injector (evolocumab) Inject 140 mg under the skin every 14 days. Remove from refrigerator 30 minutes prior to injection. 2 Each 11 clonazePAM 0.5 MG Oral Tablet (KlonoPIN) TAKE 1 OR 2 TABLETS BY MOUTH AT BEDTIME for sleep 60 Tablet 0 Carbidopa-Levodopa ER 25-100 MG Oral Tablet Extended Release (Sinemet CR) Take 1 Tablet by mouth inthe morning and 1 Tablet before bedtime. 180 Tablet 3 Aspirin 81 MG Oral Tablet Delayed Release Take 1 Tablet by mouth in the morning. 90 Tablet 3 Triamcinolone Acetonide 0.1 % External Cream (Aristocort) Apply topically to affected area 2 times a day 45 g 0 Co Q-10 400 MG Oral Capsule Take 1 Capsule by mouth once a day 30 Capsule 0 Multivitamin Adult Oral Tablet Take 1 Tablet by mouth in the morning. 90 Tablet 3 Folic Acid 400 MCG Oral Tablet Take 1 Tablet by mouth in the morning. 30 Tablet 0 Vitamin D3 25 MCG (1000 UT) Oral Tablet (Vitamin D3) Take 1 Tablet by mouth in the morning. 90 Tablet 3 No current facility-administered medications for this visit. Past Medical History: Diagnosis Date Allergic disorder bee sting Basal cell cancer 11/04/2013 Benign neoplasm of colon 05/11/2008 adenomatous/repeat colonoscopy in 3 yrs Carotid stenosis, non-symptomatic Carotid stenosis, non-symptomatic left side totally obstructed CHR ISCHEMIC HRT DIS NEC 07/08/2009 total occlusion of the proximal LAD with [id number] collaterals with 50% diffuse mid RCA Depressive disorder, not elsewhere classified Dyslipidemia, goal to be determined Major depressive disorder with single episode, in full remission (HCC) 12/23/2018 Other acute sinusitis Subdural hemorrhage (HCC) Family History Problem Relation Name Age of Onset No Past Hx Mother Lived until 86 Mental Disorder Father "black lung", production miner No Past Hx Son Asthma Daughter ? Other (AAA) Daughter Denies FH of AAA Social History Socioeconomic History Marital status: Number of children: 2 Occupational History Comment: unemployed Tobacco Use Smoking status: Former Current packs/day: 0.00 Average packs/day: 0.8 packs/day for 30.0 years (22.5 ttl pk-yrs) Types: Cigarettes Start date: 05/07/1972 Quit date: 05/07/2002 Years since quittin.8 Passive exposure: Past Smokeless tobacco: Never Tobacco comments: no smoking since 2002 Vaping Use Vaping status: Never Used Substance and Sexual Activity Alcohol use: No Drug use: No Sexual activity: Yes Partners: Female Social History Narrative Works at [employer] in [place] Social Needs Financial Resource Strain: Low Risk (01/22/2023) Financial Resource Strain Do you have any trouble paying for your medications, or do you think you might in the future? (Adult - for ages 18 years and over): No Food Insecurity: No Food Insecurity (10/20/2023) Food Insecurity Do you need food for this week? (Adult - for ages 18 years and over): No Transportation Needs: No Transportation Needs (10/20/2023) Transportation Needs Do you have trouble getting a ride to medical visits or work? (Adult - for ages 18 years and over):Never True Social Connections: Socially Integrated (01/22/2023) Social Connections How often do you feel lonely or isolated from those around you? (Adult - for ages 18 years and over): Rarely Housing Stability: Low Risk (10/20/2023) Housing Stability Do you think you are at risk of becoming homeless? (Adult - for ages 18 years and over): No OBJECTIVE/PHYSICAL EXAMINATION: BP 92/58 | Pulse 64 | Resp 16 | Wt 95 kg (209 lb 6.4 oz) | BMI 30.05 kg/m | BSA 2.17 m General: No acute distress. A+Ox3. HEENT: [...] The aortic root is mildly enlarged. ASSESSMENT/PLAN: 79 year old year old male 1. Coronary artery disease involving tonawanda coronary artery of tonawanda heart without angina pectoris -patient is stable from a cardiac perspective and denies any symptoms of angina or angina equivalent -daughter notes decreased functional capacity secondary to fatigue on a increased tremor and poor mobility which is strongly suspected to be secondary to his Parkinson's -patient is to continue on aspirin and Plavix for dual antiplatelet therapy -may continue amlodipine, metoprolol succinate, terazosin - Aspirin 81 MG Oral Tablet Delayed Release; Take 1 Tablet by mouth in the morning. Dispense: 90 Tablet; Refill: 3 2. HTN, goal below 140/90 -low normal at today's visit but asymptomatic this is expected given his history of labile blood pressures -continue amlodipine, terazosin, metoprolol succinate. If patient would have persistently low bloodpressures 1st recommendation would be to cut amlodipine dosing in half 3. Labile blood pressure -labile blood pressure secondary to neurologic status patient has been encouraged to start carbidopa levodopa to assess response however family is hesitant and fearful of patient's starting a new medication while being home alone -encouraged to talk to family physician about ongoing goals of care and home health versus other services available -we will place population health referral as patient is a [facility] gold patient and would likely benefitfrom a caw assessment - POPULATION HEALTH REFERRAL OP 4. Paroxysmal atrial flutter (HCC) -patient regular rate and rhythm on today's exam asymptomatic -continue metoprolol succinate -patient remains on dual antiplatelet therapy in at time of prior hospitalization anticoagulation has been stopped and has not been resumed at a concern of risk greater than benefit 5. Hyperlipidemia with target LDL less than 70 -yearly lipid panel 6. Carotid stenosis, asymptomatic, right 7. Goals of care, counseling/discussion -Patient is stable from a cardiac standpoint, but patient and family express great concerns regarding patient's ability to remain home alone while trialing new medication therapies for Parkinson's -concern for decreased mobility and daughter is asking how to go about getting a walker versus wheelchair, with [facility] versus in home care. Patient would greatly benefit from a caw assessment and for case management to discuss with PCP the most appropriate route for this patient. -Please contact patient's daughter, Tiffanie to discuss details. - POPULATION HEALTH REFERRAL OP DISPOSITION: Follow up 3 months or if symptoms worsen/fail to improve. All questions were answered to the patients satisfaction. Patient advised to report to ED with any and all emergencies. The patient agrees to the above plan and will call with additional questions or concerns. [facility], [address] [address] I spent a total of 45 minutes on the date of service in preparation, delivery, and documentation ofthe care provided to Landen Camacho excluding any time spent in the performance of separately billed services. This chart was completed in part utilizing [employer] Speech Voice Recognition Software. Grammatical errors, random [...] documented in this encounter Nursing Notes * Pauline Meredith CMA - 03/18/2024 2:32 PM EST Examination Room: 7 Name: Landen Camacho Date of : (1945). Reason for Visit: Hospital follow-up Interim Hospitalization(s): 01/23 [facility] ER Problems/Concerns: Blood pressure concerns / not taking carbidopa-levadopa made him "feel like shit" Chest Pain/SOB: denies [facility] Discussed: Yes [facility] a way you can [...] Description 03/19/2024 2:30 PM EST [facility] Visit [facility], [facility] [address] [facility] [place] [address] Aron Schmid, GUS [address] [facility] [place] [address] 04/09/2024 11:30 AM EST Scheduled Telephone [facility], [facility] [address] [facility] [place] [address] Teresa Johnson, TRAVISN [address] [facility] [place] [address] 05/27/2024 6:20 PM EST Office Visit Formerly Named [facility] [address] [place] [address] Kaz Robeldo MD [address] [place] [address] 06/26/2024 1:40 PM EST Office Visit Neurology Asael Marquez [place] [address] [facility] [place] [address] Darron Calvillo MD [address] [place], [place] [id number] 07/08/2024 10:30 AM EST Office Visit Cardiology, [facility] [address] [place] [address] Marcia Collins CRNP [address] [place] [address] 10/24/2024 2:00 PM EDT Office Visit Dermatology [facility] [address] [place] [address] Mitchell Mack MD [address] [place] [address] Scheduled Procedures Name Priority Associated Diagnoses Date/Ti me COLONOSCOPY FLEXIBLE PROXIMAL DIAGNOSTIC Recall History of colon polyps Scheduled Referrals Name Type Priority Associated Diagnoses Orde r Schedule POPULATION HEALTH REFERRAL OP Referral Within 10 days (routine) Labile blood pressure Goals of care, counseling/discussio n Ordered: 03/18/2024 Health Maintenance Due Date Last Done Comments [...] ASSESSMENT COMPLETED IN PAST YEAR FOR COPD 02/27/2025 02/28/2024 Albumin/Creatinine Ratio 07/17/2026 07/18/2023, 09/05 DTap/Tdap Vaccines [...] Coronary atherosclerosis of unspecified type of vessel, tonawanda or graft HTN, goal below 140/90 Unspecified essential hypertension Parkinson's disease, unspecified whether dyskinesia present, unspecified whether manifestations fluctuate (HCC) PVD (peripheral vascular disease) (HCC) Peripheral vascular disease, unspecified Adjustment disorder with mixed anxiety and depressed mood Advanced care planning/counseling discussion Other specified counseling Coronary artery disease involving tonawanda coronary artery of tonawanda heart without angina pectoris- Primary HTN, goal below 140/90 Unspecified essential hypertension Labile blood pressure Elevated blood pressure reading without diagnosis of hypertension Paroxysmal atrial flutter (HCC) Atrial flutter Hyperlipidemia with target LDL less than 70 Other and unspecified hyperlipidemia Carotid stenosis, asymptomatic, right Goals of care, counseling/discussion Other specified counseling Hand erythema Unspecified erythematous condition documented in this encounter Advance Directives * Full Code (Latest Code Status on File) Date Activated Date Inactivated Comments 10/20/2023 10:03 AM 10/26/2023 1:07 AM This order reflects the patients wishes and were consensually agreed upon. Question Answer Comments Discussion of Advance Directives occurred with: Patient Care Teams Account Services Coordinator Relationship Specialty Start Date End Date Kaz Robledo MD [address] [place] [address] PCP - General Family Medicine 03/05/17 documented as of this encounter
--- OUTSIDE RECORDS SUMMARY | 2024-03-26 07:09 | External Medical Summary | Summary of Care ---
Author Name Unknown Organization [facility] Address [address] [place] [address] Phone [phone] Care Team Providers Care Grid Molder Name Role Phone Kaz Robledo MD Primary Care Provider [phone]- [phone] Reason for Visit * Reason Onset Date Comments [facility]: Engagement 03/11/2024 Encounter Details Date Type Department Care Team (Late st Contact Info) Description 03/11/2024 Telephone [facility], [facility] [address] [place] [address] Elsa Torres OSA [address], [place] [id number] [facility]: Engagement Allergies Active Allergy Reactions Criticality Noted Date Comments Atorvastatin Muscle pain 12/11/2016 Bee Stings 02/21/1999 Hives,intense itching,edema Gabapentin 10/02/2023 "Couldn't handle it" documented as of this encounter (statuses as of 03/11/2024) Medications Medication Sig Dispensed Refills Start Date End Date Status LOW-DOSE ASPIRIN 81 MG PO TABS Take 1 Tablet by mouth in the morning. Active DAILY MULTIVITAMIN PO TABS 1 tablet daily Active CALCIUM 500 MG PO TABS Take by mouth daily. 60 Tab 0 05/02/2010 Active NITROGLYCERIN 0.4 MG SL SUBLIndications:Stab le angina (HCC) 1 TAB EVERY 5 MIN NEEDED, UP TO 3 PER EPISODE 25 Tab 5 10/14/2013 Active docusate sodium (COLACE) 100 MG Capsule [...] To affected area. 45 g 10/17/2022 Active Lisinopril 40 MG Oral Tablet Take [...] per week. 360 mL 5 05/25/2023 Active amLODIPine Besylate 10 MG Oral Tablet (Norvasc) TAKE ONE TABLET BY MOUTH EVERY MORNING 90 Tablet 3 07/20/2023 5 Active Clopidogrel Bisulfate 75 MG Oral Tablet (Plavix) Take 1 Tablet by mouth in the morning. Do not start before November 24, 2023. 90 Tablet 3 11/24/2023 Active Terazosin HCl 1 MG Oral Capsule (Hytrin)Indications: HTN, goal below 140/90 take one capsule by mouth at bedtime 90 Capsule 3 12/24/2023 Active Melatonin 3 MG Oral Tablet Disintegrating Take 1 Tablet by mouth at bedtime. Active Isosorbide Mononitrate ER 30 MG Oral Tablet Extended Release 24 Hour (Imdur)Indications:C hronic coronary artery disease,Stable angina (HCC) Take 3 Tablets by mouth in the morning. 300 Tablet 3 01/24/2024 Active Repatha SureClick 140 MG/ML Subcutaneous Solution Auto-injector (evolocumab) Inject 140 mg under the skin every 14 days. Remove from refrigerator 30 minutes prior to injection. 2 Each 11 01/31/2024 Active clonazePAM 0.5 MG Oral Tablet (KlonoPIN)Indication s:Sleep disorder,Adjustment disorder with mixed anxiety and depressed mood TAKE 1 OR 2 TABLETS BY MOUTH AT BEDTIME for sleep 60 Tablet 02/12/2024 Active Carbidopa-Levodopa ER 25-100 MG Oral Tablet Extended Release (Sinemet CR) Take 1 Tablet by mouth in the morning and 1 Tablet before bedtime. 180 Tablet 3 02/28/2024 Active documented as of this encounter (statuses as of 03/11/2024) Active Problems Problem Noted Date Diagnosed Date Carotid stenosis, asymptomatic, right 12/19/2023 Personal history of OR (myocardial infarction) 0 10/20/2023 Overview: 10/20/23 Parkinson's disease 10/20/2023 Last Assessment & Plan: Following with neurology Did not tolerate sinemet due to hypotension Suspect patient will ultimately need placement in nursing facility as disease progresses ( currently at facility due to dementia) Chronic obstructive pulmonary disease 05/25/2023 Major depressive disorder, recurrent episode, mi ld 05/25/2023 Adjustment disorder with mixed anxiety and depre ssed mood 05/25/2023 Last Assessment & Plan: Continues on celexa with prn klonopin Problems related to living alone 05/25/2023 Anxiety 08/03/2022 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, bilateral legs 07/27/2022 Prediabetes 09/12/2021 Overview: Per Prediabetes protocol Carotid occlusion, left 08/19/2020 PVD (peripheral vascular disease) 12/23/2018 Last Assessment & Plan: Chronic LICA occlusion Personal history of subdural [...] 31.85 05/14/12 HTN, goal below 140/90 02/15/2012 Last Assessment & Plan: BP appears somewhat labile, however is at goal today REM behavioral disorder 09/25/2011 Periodic limb movement disorder 09/25/2011 History of tobacco use 07/27/2009 Chronic coronary artery disease 07/08/2009 Overview: Cath 10/22/23 showing severe triple-vessel disease (RCA occluded with L- R collaterals, LAD occluded with L-L collaterals, severe disease in left circumflex Last Assessment & Plan: Too high risk for bypass, continues with medical management for now Following closely with cardiology Continues cardiac rehab via [facility] program Dyslipidemia, goal LDL below 100 04/15/2009 Overview: Per Lipid Taxonomy. Hearing loss 07/09/2007 documented as of this encounter (statuses as of 03/11/2024) Resolved Problems Problem Noted Date Diagnosed Date [...] disorder 02/15/2012 09/03/2017 Genetic Sleep Disorder [facility] Other*[id number] 06/26/2011 12/08/2015 EXAMINATION OF PARTICIPANT I N CLINICAL TRIAL-Genomics 06/04/2009 08/20/2009 Overview: Renamed Per Clinical Trials Billing Project. Study Titile: Genomic Markers for Patients with Cardiovascular Disease Project #[id number] PI: Radha Yepez MD Please call [phone] with study related questions GENOMICS CARDIO RESEARCH OTHER*[id number] 06/04/2009 06/13/2016 Overview: Renamed Per Clinical Trials Billing Project. Study Titile: Genomic Markers for Patients with Cardiovascular Disease Project #[id number] PI: Radha Yepez MD Please call [phone] with study related questions Benign neoplasm of [...] 04/27/2006 12/12/2023 ADVANCE DIRECTIVE INFORMATION 04/06/2006 09/03/2017 Overview: Yes, Patient instructed to provide copy of advance directive for provider to review and to be scanned into Electronic Medical Record Dyslipidemia, goal to be determined 02/03/2005 04/15/2009 Overview: Per Lipid Taxonomy. IMPOTENCE, ORGANIC ORIGN Tobacco use disorder 010 Major depressive disorder Overview: history documented as of this encounter (statuses as of 03/11/2024) Immunizations Name Administration Dates Next Due COVID-19 [...] 18 years and over) Not on file 01/23/2024 Financial Resource Strain Answer Date R ecorded [...] documented as of this encounter Functional Status Functional Status Response Date of Assess ment Are you deaf or do you have serious difficulty h earing? No 10/20/2023 Are you blind or do you have serious difficulty seeing, even when wearing glasses? No 10/20/2023 Do you have serious difficul ty walking or climbing stairs? (5 years old or older) No 10/20/2023 Do you have difficulty dress ing or bathing? (5 years old or older) No 10/20/2023 Because of a physical, menta l, or emotional condition, do you have difficulty doing errands alone such as visiting a doctor s office or shopping? (15 years old or older) No 10/20/19 Cognitive Status Response Date of Assessm ent Because of a physical, menta l, or emotional condition, do you have serious difficulty concentrating, remembering, or making decisions? (5 years old or older) No 10/20/2023 documented as of this encounter Miscellaneous Notes * Telephone Encounter - Elsa Torres OSA - 03/11/2024 9:55 AM EST Per Request reschedule appt.. Called s/w pt he advised 03/19 at 2:30pm is a good date and time. documented in this encounter Plan of Treatment Upcoming Encounters Date Type Department Care Team (Late st Contact Info) Description 03/18/2024 2:30 PM EST Office Visit Cardiology, [facility] [address] [facility] [place] [address] Marcia Collins CRNP [address] [facility] [address] 03/19/2024 2:30 PM EST Home Visit [facility], [facility] [address] [facility] [place] [address] Aron Schmid, GUS [address] [facility] [place] [address] 04/09/2024 11:30 AM EST Scheduled Telephone [facility], [facility] [address] [facility] [address] Teresa Johnson, RDN [address] [place] [address] 05/27/2024 6:20 PM EST Office Visit Family [facility] [address] [place] [address] Kaz Robledo MD [address] [place] [address] 06/26/2024 1:40 PM EST Office Visit Neurology [facility] [address] [place] [address] Darron Calvillo MD [address] [place] [address] 10/24/2024 2:00 PM EDT Office Visit [facility] [place], [place] [address] Mitchell Mack MD [address] [facility] [place] [address] Scheduled Procedures Name Priority Associated Diagnoses Date/Ti [...] Advance Directives occurred with: Patient Care Teams Grid Molder Relationship Specialty Start Date End Date Kaz Robledo MD [address] [place] [address] PCP - General Family Medicine 03/05/17 documented as of this encounter
--- OUTSIDE RECORDS SUMMARY | 2024-03-26 07:09 | External Medical Summary | Summary of Care ---
Author Name Unknown Organization [facility] Address [address] [place] [address] Phone [phone] Care Team Providers Care Drying Room Supervisor Name Role Phone Kaz Robledo MD Primary Care Provider [phone]- [phone] Reason for Referral * Social Care (Within 10 days (routine)) - Authorized Specialty Diagnoses / Procedures Referred By Contac t Referred To Contact Farm Machinery Mechanic Diagnoses Parkinson's disease without dyskinesia or fluctuating manifestations (HCC) Tremor Anxiety Darron Birch MD [address] [place] [address] Phone: tel: fax: Referral ID Status Reason Start Date Expiration Date Visits Requested Visits Authorized [id number] Authorized Specialty Services Required 4 [phone] Question Answer Referral Priority Within 10 days (routine) Where should this appointment be scheduled? [facility] Role Epidemiology Intern Epidemiology Intern Referral Reason Transportation Comments Is patient being transitioned from [facility] to Complex Case Management? No * Evaluate & Treat - Unlimited Visits (Within 10 days (routine)) - Authorized Specialty Diagnoses / Procedures Referred By Contac t Referred To Contact HOME CARE / Home Care Diagnoses Parkinson's disease without dyskinesia or fluctuating manifestations (HCC) Tremor Anxiety Darron Birch MD [address] [place] [address] Phone: tel: fax: Referral ID Status Reason Start Date Expiration Date Visits Requested Visits Authorized [id number] Authorized Specialty Services Required 4 [phone] Question Answer Referral Priority Within 10 days (routine) Where should this appointment be scheduled? [facility] Comments Documentation of Wmyu-gk-Qwap Encounter Addendum Patient Name: Landen Camacho I certify that this patient is under my care and that I, or a nurse practitioner or physician's assistant professor of chemistry working with me, had a ibgd-og-bdby encounter that meets the physician lztt-lc-jeko encounter requirements with this patient on: 02/28/24 The encounter with the patient was in whole, or in part, for the following medical condition, which is the primary reason for home health care (List medical condition): Medication management I certify that, based on my findings, the following services are medically necessary home health services: Nursing To provide the following care/treatments: (All hospitalists not following the patient after discharge should complete this section): My clinical findings support the need for the above services because: transportation issues Further, I certify that my clinical findings support that this patient is homebound (i.e. Absences from home require considerable and taxing effort and are for medical reasons or jainism services or infrequently or of short duration when for other reason) because: Medication management Physician Signature: Date of Signature: Physician Printed Name: Tiffanie Walton LPN Reason for Visit * Reason Onset Date Comments Advice 03/06/[address] requesting Tiffanie Encounter Details Date Type Department Care Team (Late st Contact Info) Description 03/05/2024 Telephone [address]rology [address] [place] [phone] Services, Scheduling [address] [facility] [place] [address] Advice (Rajinder pt daughter requesting Tiffanie) Allergies Active Allergy Reactions Criticality Noted Date Comments Atorvastatin Muscle pain 12/11/2016 Bee Stings 02/21/1999 Hives,intense itching,edema Gabapentin 10/02/2023 "Couldn't handle it" documented as of this encounter (statuses as of 03/18/2024) Medications LOW-DOSE ASPIRIN 81 MG PO TABS Take 1 Tablet by mouth in the morning. Active DAILY MULTIVITAMIN PO TABS 1 tablet daily Activ e CALCIUM 500 MG PO TABS Take by [...] mouth in the morning. 30 Tab 0 12/23/19 16 Active Coenzyme Q10 (CO Q-10) 400 MG CAPS Take 1 Cap by mouth once. 30 Cap 0 12/23/19 16 Active Cholecalciferol (VITAMIN D) 1000 units Tablet Take 1 Tablet by mouth every other day. 03/24/20 18 Active Ketoconazole 2 % External CreamIndications:S eborrheic [...] day 850 g 1 12/30/19 21 Active Triamcinolone Acetonide 0.1 % External Cream (Aristocort)Indica tions:Hand erythema Apply topically to affected area 2 times a day. To affected area. 45 g 10/18/19 23 Active Lisinopril 40 MG Oral Tablet Take [...] AT BEDTIME for sleep 60 Tablet 02/12/20 Active Carbidopa-Levodopa ER 25-100 MG Oral Tablet Extended Release (Sinemet CR) Take 1 Tablet by mouth in the morning and 1 Tablet before bedtime. 180 Tablet 3 4 11:02 AM EDT 02/28/20 Active documented as of this encounter (statuses as of 03/18/2024) Active Problems Problem Noted Date Diagnosed Date Carotid stenosis, asymptomatic, right 12/19/2023 Personal history of VT (myocardial infarction) 0 10/20/2023 Overview (12/12/2023): 10/20/23 [...] LICA occlusion Personal history of subdural hemorrhage 04/30/20 18 History of adenomatous polyp of colon [...] with cardiology [facility] Dyslipidemia, goal LDL below 100 [...] 02/15/2012 09/03/[address] [facility] Other*[id number] 06/26/2011 12/08/2015 EXAMINATION OF PARTICIPANT I N CLINICAL TRIAL-Genomics 06/04/2009 08/20/2009 Overview (08/20/2009): Renamed Per Clinical Trials Billing Project. Study Titile: Genomic Markers for Patients with Cardiovascular Disease Project #[id number] PI: Radha Yepez MD Please call [phone] with study related questions GENOMICS CARDIO RESEARCH OTHER*[id number] 06/04/2009 06/13/2016 Overview (08/20/2009): Renamed Per Clinical Trials Billing Project. Study Titile: Genomic Markers for Patients with Cardiovascular Disease Project #[id number] PI: Radha Yepez MD Please call [phone] with study related questions Benign neoplasm of [...] consciousness 07/09/2007 09/03/2017 Subjective tinnitus 07/09/2007 08/22/19 Carotid stenosis, non-symptomatic 04/27/2006 12/12/2023 ADVANCE DIRECTIVE [...] of Assessment Author No 10/20/2023 9:22 AM EDNba German RN documented as of this encounter Mental Status * Because of a physical, mental, or emotional condition, do you have serious difficulty concentrating, remembering, or making decisions? (5 years old or older) Answer Entry Date Author No 10/20/2023 9:22 AM Nba Wynn RN documented in this encounter Miscellaneous Notes * Telephone Encounter - Tiffanie Walton LPN - 03/18/2024 11:03 AM EST Spoke with daughter Patient is having increased confusion and she feels that he is declining She has a appointment with the diversional therapist today and will get back to me after this for assistanceon what is needed * Telephone Encounter - Shaunna Morrell OSA - 03/17/2024 1:12 PM EST Neuroscience Phone Call Form- Requested Information from caller: Who is calling (not pt) name: Tiffanie Swancer relationship: daughter Provider patient is established with: Rajinder What is the concern or issue they are having: Pts daughter is requesting to speak with Tiffanie in regards to halfway hiccup. Pts daughter states that halfway needs directives on medication, and they need detailed written instructions. Pt is going to [facility] in [place], and the home states that they need this first. How long has the issue been going on: on going Any additional details to add: yes: high priority due to time sensitive nature of request. Phone number for nurse to call back: [phone] Are forms needed? Please reach out to pts daughter Medication Refill? no Verify Pharmacy information is correct. Form to be used for established patients only (not new patients) Clinic has 24-48 hours to respond to caller. If caller is calling back before timeframe with any changes in condition/issues reported, update TEand re-route to appropriate pool If caller is calling back before timeframe- update TE- no need to re-route Peds Neurology Pool- Peds Neuro [employer] [place]- [id number] (All messages get sent to the [facility] [place] [facility]) Neurology Pool Numbers- [place] and [place] patients - follow normal process Ops req [facility] Neurology ([place])- [id number] Ops req NE Neurology ([place]- [facility] and [facility] clinics Only)- [id number] Neurosurgery Pool Numbers- [place] patients- follow normal process Ops req Neurosurgery [facility] ([place])- [id number] Ops req Neurosurgery [place] ([place] Only) [id number] * Telephone Encounter - Tiffanie Walton LPN - 03/06/2024 1:50 PM EDT Phone call from daughter, I discussed to see if he could take a half tablet to start She is going to get him into [facility] and will call me back. * Addendum Note - Darron Birch MD - 03/06/2024 11:13 AM EDTAddended by: DARRON BIRCH on: 03/06/2024 11:13 AM Modules accepted: Orders * Addendum Note - Tiffanie Walton LPN - 03/06/2024 9:45 AM EDTAddended by: TIFFANIE WALTON on: 03/06/2024 09:45 AM Modules accepted: Orders * Telephone Encounter - Tiffanie Walton LPN - 03/06/2024 9:19 AM EDT Spoke with daughter She is reporting that patient can not take sinemet She feels that his heart is so bad and he needs to have everything correlated She can't start this medication without supervision Mostly patient has a tremor and a lot of anxiety Can he take another medication Please sign for referrals * Telephone Encounter - Tiffanie Walton LPN - 03/05/2024 2:05 PM EDT Message left for daughter to return call * Telephone Encounter - Angela Lees OSA - 03/05/2024 11:42 AM EDT Neuroscience Phone Call Form- Requested Information from caller: Who is calling (not pt) name: Tiffanie relationship: Daughter EC Provider patient is established with: Dr Birch What is the concern or issue they are having: Patients daughter calling in with concerns of possible duplicate medication prescribed. Is requesting a return call to address concerns of medication. Phone number for nurse to call back: [phone] Clinic has 24-48 hours to respond to caller. If caller is calling back before timeframe with any changes in condition/issues reported, update TEand re-route to appropriate pool If caller is calling back before timeframe- update TE- no need to re-route [facility] Neurology Pool- [facility] Neuro [place]- [id number] (All messages get sent to the [facility] [place] [facility]) Neurology Pool Numbers- [place] and [facility] patients - follow normal process Ops req [facility] Neurology ([place])- [id number] Ops req NE Neurology ([place]- [facility] and [facility] clinics Only)- [id number] Neurosurgery Pool Numbers- [place] patients- follow normal process Ops req Neurosurgery [facility] ([place])- [id number] Ops req Neurosurgery [place] ([place] Only) [id number] documented in this encounter Plan of Treatment Upcoming Encounters Date Type Department Care Team (Late st Contact Info) Description 03/18/2024 2:30 PM EST Office Visit Cardiology, [facility] [address] [place] [address] Marcia Collins CRNP [address] [place] [address] 03/19/2024 2:30 PM EST Home Visit [facility], [place] [address] [place] [address] Aron Schmid, RN [address] [place] [address] 04/09/2024 11:30 AM EST Scheduled Telephone [facility], [facility] [address] [facility] [place] [address] Teresa Johnson RDN [address] [facility] [address] 05/27/2024 6:20 PM EST Office Visit [facility] [address] [place] [address] Kaz Robledo MD [address] [place] [address] 06/26/2024 1:40 PM EST Office Visit Neurology [facility] [address] [place] [address] Darron Birch MD [address] [place] [address] 10/24/2024 2:00 PM EDT Office Visit Dermatology [facility] [address] [facility] [place] [address] Mitchell Mack MD [address] [place] [address] Scheduled Procedures Name Priority Associated Diagnoses Date/Ti me COLONOSCOPY FLEXIBLE PROXIMAL DIAGNOSTIC Recall History of colon polyps Scheduled Referrals Name Type Priority Associated Diagnoses Orde r Schedule HOME HEALTH REFERRAL OP Referral Within 10 days (routine) Parkinson's disease without dyskinesia or fluctuating manifestations (HCC) Tremor Anxiety Ordered: 03/06/2024 POPULATION HEALTH REFERRAL OP Referral Within 10 days (routine) Parkinson's disease without dyskinesia or fluctuating manifestations (HCC) Tremor Anxiety Ordered: 03/06/2024 Health Maintenance Due Date Last Done Comments [...] Coronary atherosclerosis of unspecified type of vessel, [place] or graft HTN, goal below 140/90 Unspecified essential hypertension Parkinson's disease, unspecified whether dyskinesia present, unspecified whether manifestations fluctuate (HCC) PVD (peripheral vascular disease) (HCC) Peripheral vascular disease, unspecified Adjustment disorder with mixed anxiety and depressed mood Advanced care planning/counseling discussion Other specified counseling Parkinson's disease without dyskinesia or fluctuating manifestations (HCC)- Primary Tremor Abnormal involuntary movements Anxiety Anxiety state, unspecified documented in this encounter Advance Directives * Full Code (Latest Code Status on File) Date Activated Date Inactivated Comments 10/20/2023 10:03 AM 10/26/2023 1:07 AM This order reflects the patients wishes and were consensually agreed upon. Question Answer Comments Discussion of Advance Directives occurred with: Patient Care Teams Drying Room Supervisor Relationship Specialty Start Date End Date Kaz Robledo MD [address] [place] [address] PCP - General Family Medicine 03/05/17 documented as of this encounter
--- OUTSIDE RECORDS SUMMARY | 2024-03-26 07:09 | External Medical Summary | Summary of Care ---
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 90 Tablet 3 03/18/20 24 Active Triamcinolone Acetonide 0.1 % External Cream (Aristocort)Indica tions:Hand erythema Apply topically to affected area 2 times a day 45 g 03/18/20 Active Co Q-10 400 MG Oral Capsule Take 1 Capsule by mouth once a day 30 Capsule 03/18/20 24 024 Active Multivitamin Adult Oral Tablet Take 1 [...] closely with cardiology Continues cardiac rehab via [facility] rehab program Dyslipidemia, goal LDL below 100 [...] disorder 02/15/2012 09/03/2017 Genetic Sleep Disorder Resea [facility] Other*[id number] 06/26/2011 12/08/2015 EXAMINATION OF PARTICIPANT I N CLINICAL TRIAL-Genomics 06/04/2009 08/20/2009 Overview (08/20/2009): Renamed Per Clinical Trials Billing Project. Study Titile: Genomic Markers for Patients with Cardiovascular Disease Project #[id number] PI: Radha Yepez MD Please call [phone] with study related questions GENOMICS CARDIO RESEARCH OTHER*[id number] 06/04/2009 06/13/2016 Overview (08/20/2009): Renamed Per Clinical Trials Billing Project. Study Titile: Genomic Markers for Patients with Cardiovascular Disease Project #[id number] PI: Radha Yepez MD Please call [phone] with study related questions Benign neoplasm of [...] Nba Wynn RN documented in this encounter Plan of Treatment Upcoming Encounters Date Type Department Care Team (Late st Contact Info) Description 03/19/2024 2:30 PM EST [facility] [address] [address] Aron Schmid, GUS [address] [address] 04/09/2024 11:30 AM EST Scheduled Telephone [facility], [facility] [address] [facility] [place] [address] Teresa Johnson RDN [address] [facility] [place] [address] 05/27/2024 6:20 PM EST Office Visit Family [facility] [address] [place] [address] Kaz Robledo MD [address] [place] [address] 06/26/2024 1:40 PM EST Office Visit Neurology [facility] [address] [facility] [place] [address] Darron Calvillo MD [address] [place] [address] 07/08/2024 10:30 AM EST Office Visit Cardiology, [facility] 132 [place] [address] Marcia Collins CRNP [address] [place] [address] 10/24/2024 2:00 PM EDT Office Visit Dermatology [facility] [address] [facility] [place] [address] Mitchell Mack MD [address] [facility] [place] [address] Scheduled Procedures Name Priority Associated Diagnoses Date/Ti [...] Advance Directives occurred with: Patient Care Teams Dehydrogenation Supervisor Relationship Specialty Start Date End Date Kaz Robledo MD [address] [place] [facility] [place] [address] PCP - General Family Medicine 03/05/17 documented as of this encounter
--- OUTSIDE RECORDS SUMMARY | 2024-03-26 07:09 | External Medical Summary | Summary of Care ---
Author Name Unknown Organization [facility] Address [address] [place] [address] Phone [phone] Care Team Providers Care Applications Intern Name Role Phone Kaz Robledo MD Primary Care Provider +1- [phone] Reason for Referral * Social Care (Within 10 days (routine)) - Authorized Specialty Diagnoses / Procedures Referred By Contac t Referred To Contact Industrial Education Instructor Diagnoses Parkinson's disease without dyskinesia or fluctuating manifestations (HCC) Tremor Anxiety Darron Birch MD [address] [place] [address] Phone: tel: fax: Referral ID Status Reason Start Date Expiration Date Visits Requested Visits Authorized [id number] Authorized Specialty Services Required 4 999 999 Question Answer Referral Priority Within 10 days (routine) Where should this appointment be scheduled? [facility] Role Senior Dentist Senior Dentist Referral Reason Transportation Comments Is patient being transitioned from [facility] to Complex Case Management? No * Evaluate & Treat - Unlimited Visits (Within 10 days (routine)) - Authorized Specialty Diagnoses / Procedures Referred By Contac t Referred To Contact HOME CARE / Home Care Diagnoses Parkinson's disease without dyskinesia or fluctuating manifestations (HCC) Tremor Anxiety Darron Birch MD [address] [place] [address] Phone: tel: fax: Referral ID Status Reason Start Date Expiration Date Visits Requested Visits Authorized [id number] Authorized Specialty Services Required 4 999 999 Question Answer Referral Priority Within 10 days (routine) Where should this appointment be scheduled? [facility] Comments Documentation of Nfxe-cz-Tstd Encounter Addendum Patient Name: Landen Camacho I certify that this patient is under my care and that I, or a nurse practitioner or physician's phys assistant working with me, had a qsjv-ey-faur encounter that meets the physician epoz-hb-ikmq encounter requirements with this patient on: 02/28/24 [...] effort and are for medical reasons or orthodoxy services or infrequently or of short duration [...] [place] [phone] Services, Scheduling [address] [facility] [place] [address] Advice (Rajinder pt daughter requesting Tiffanie) Allergies Active Allergy Reactions Criticality Noted Date Comments Atorvastatin Muscle pain 12/11/2016 Bee Stings 02/21/1999 Hives,intense itching,edema Gabapentin 10/02/2023 "Couldn't handle it" documented as of this encounter (statuses as of 03/17/2024) Medications LOW-DOSE ASPIRIN 81 MG PO TABS [...] as of this encounter (statuses as of 03/17/2024) Active Problems Problem Noted Date Diagnosed Date Carotid stenosis, asymptomatic, right 12/19/2023 Personal history of NE (myocardial infarction) 0 10/20/2023 Overview (12/12/2023): 10/20/23 [...] closely with cardiology [facility] Dyslipidemia, goal LDL below 100 04/15/2009 Overview (04/15/2009): Per Lipid Taxonomy. Hearing loss 07/09/2007 documented as of this encounter (statuses as of 03/17/2024) Resolved Problems Problem Noted Date Diagnosed Date [...] 09/03/2017 Genetic Sleep Disorder Resea [facility] Other*[id number] 06/26/2011 12/08/2015 EXAMINATION OF PARTICIPANT I N CLINICAL TRIAL-Genomics 06/04/2009 08/20/2009 Overview (08/20/2009): Renamed Per Clinical Trials Billing Project. Study Titile: Genomic Markers for Patients with Cardiovascular Disease Project #[id number] PI: Radha Yepez MD Please call [phone] with study related questions GENOMICS CARDIO RESEARCH OTHER*[id number] 06/04/2009 06/13/2016 Overview (08/20/2009): Renamed Per Clinical Trials Billing Project. Study Titile: Genomic Markers for Patients with Cardiovascular Disease Project #[id number] PI: Radha Yepez MD Please call [phone] with study related questions Benign neoplasm of [...] as of this encounter (statuses as of 03/17/2024) Immunizations Name Administration Dates Next Due COVID-19 [...] Entry Date Author No 10/20/2023 9:22 AM EDNba German RN documented in this encounter Miscellaneous Notes * Telephone Encounter - Porsche Shaunnanatalia Jones, HENRIETTA - 03/17/2024 1:12 PM EST Neuroscience Phone Call Form- Requested Information from caller: Who is calling (not pt) name: Tiffanie Swancer relationship: daughter Provider patient is established with: Rajinder What is the concern or issue they are having: Pts daughter is requesting to speak with Tiffanie in regards to residential hiccup. Pts daughter states that residential needs directives on medication, and they need detailed written instructions. Pt is going to [place] in [place], and the home states that they need this first. How long has the issue been going on: on going Any additional details to add: yes: high priority due to time sensitive nature of request. Phone number for nurse to call back: [phone] Are forms needed? Please reach out to [...] timeframe- update TE- no need to re-route Ped Neurology Pool- [facility] Neuro [place]- [id number] (All messages get sent to the [facility]) Neurology Pool Numbers- [place] and [place] patients - follow normal process Ops req [facility] ([place])- [id number] Ops req [place] Neurology ([place]- [facility] and [facility] clinics Only)- [id number] Neurosurgery Pool Numbers- [place] patients- follow normal process Ops req Neurosurgery [facility] ([place])- [id number] Ops req Neurosurgery [facility] ([place] Only) [id number] * Telephone Encounter - Tiffanie Walton LPN - 03/06/2024 1:50 PM EDT Phone call from daughter, I discussed to see if he could take a half tablet to start She is going to get him into [place] and will call me back. * Addendum [...] Phone number for nurse to call back: [phone] Clinic has 24-48 hours to respond to caller. If caller is calling back before timeframe with any changes in condition/issues reported, update TEand re-route to appropriate pool If caller is calling back before timeframe- update TE- no need to re-route [facility] Neurology Pool- [facility] Neuro [place] [employer] [place]- [id number] (All messages get sent to the [facility]) Neurology Pool Numbers- [place] and [facility] patients - follow normal process Ops req [facility] Neurology ([place])- [id number] Ops req [place] Neurology ([place]- [facility] and [facility] clinics Only)- [id number] Neurosurgery Pool Numbers- [place] patients- follow normal process Ops req Neurosurgery [facility] ([place])- [id number] Ops req Neurosurgery [facility] ([place] Only) [id number] documented in this encounter Plan of Treatment Upcoming Encounters Date Type Department Care Team (Late st Contact Info) Description 03/18/2024 2:30 PM EST Office Visit Cardiology, [facility] [address] [address] Marcia Collins CRNP [address] [address] 03/19/2024 2:30 PM EST Home Visit [facility] [address] [address] Aron Schmid, GUS [address] [address] 04/09/2024 11:30 AM EST Scheduled Telephone [facility], [facility] [address] [facility] [place] [address] Teresa Johnson, RDN [address] [facility] [place] [address] 05/27/2024 6:20 PM EST Office Visit [facility] [address] [place] [address] Kaz Robledo MD [address] [place] [address] 06/26/2024 1:40 PM EST Office Visit Neurology [facility] [address] [facility] [place] [address] Darron Birch MD [address] [place] [address] 10/24/2024 2:00 PM EDT Office Visit Dermatology [facility] [address] [facility] [place] [address] Mitchell Mack MD [address] [facility] [place] [address] Scheduled Procedures Name Priority Associated Diagnoses Date/Ti [...] Coronary atherosclerosis of unspecified type of vessel, kasaan or graft HTN, goal below 140/90 Unspecified [...] Advance Directives occurred with: Patient Care Teams Applications Intern Relationship Specialty Start Date End Date Kaz Robledo MD [address] [place] [facility] [place] [address] PCP - General Family Medicine 03/05/17 documented as of this encounter
--- OUTSIDE RECORDS SUMMARY | 2024-03-26 07:09 | External Medical Summary | Summary of Care ---
Author Name Unknown Organization [facility] Address [address] [facility] [place] [address] Phone [phone] Care Team Providers Care Greeter Guest Services Name Role Phone Kaz Robledo MD Primary Care Provider +1- [phone] Reason for Visit * Reason Onset Date Comments [facility]: Maintenance 03/10/2024 Encounter Details Date Type Department Care Team (Late st Contact Info) Description 03/10/2024 Telephone [facility], [facility] [address] [facility] [place] [address] Alis Braxton RN [address] [facility] [place] [address] [facility]: Maintenance Allergies Active Allergy Reactions Criticality Noted Date Comments Atorvastatin Muscle pain 12/11/2016 Bee Stings 02/21/1999 Hives,intense itching,edema Gabapentin 10/02/2023 "Couldn't handle it" documented as of this encounter (statuses as of 03/10/2024) Medications Medication Sig Dispensed Refills Start Date [...] MOUTH EVERY MORNING 90 Tablet 3 07/20/2023 Active Clopidogrel Bisulfate 75 MG Oral Tablet [...] as of this encounter (statuses as of 03/10/2024) Active Problems Problem Noted Date Diagnosed Date Carotid stenosis, asymptomatic, right 12/19/2023 Personal history of MA (myocardial infarction) 0 10/20/2023 Overview: 10/20/23 Parkinson's [...] closely with cardiology [facility] Dyslipidemia, goal LDL below 100 04/15/2009 Overview: Per Lipid Taxonomy. Hearing loss 07/09/2007 documented as of this encounter (statuses as of 03/10/2024) Resolved Problems Problem Noted Date Diagnosed Date [...] Resea [facility] Other*[id number] 06/26/2011 12/08/2015 EXAMINATION OF PARTICIPANT I N CLINICAL TRIAL-Genomics 06/04/2009 08/20/2009 Overview: Renamed Per Clinical Trials Billing Project. Study Titile: Genomic Markers for Patients with Cardiovascular Disease Project #[id number] PI: Radha Yepez MD Please call [phone] with study related questions GENOMICS CARDIO RESEARCH OTHER*[id number] 06/04/2009 06/13/2016 Overview: Renamed Per Clinical Trials Billing Project. Study Titile: Genomic Markers for Patients with Cardiovascular Disease Project #[id number] PI: Radha Yepez MD Please call [phone] with study related questions Benign neoplasm of [...] as of this encounter (statuses as of 03/10/2024) Immunizations Name Administration Dates Next Due COVID-19 mRNA, LNP-s, No Pre serve, 2-Dose Series (Moderna) 07/02/2020,06/03/2020 COVID-19, mRNA, LNP-s, PF, B ooster, 100mcg/0.5mg (Moderna) 10/06/2021,03/02/2021 Covid-19, Mrna, Lnp-s, Pf, B ivalent, 30 Mcg, IM, 12 yrs and above (TeleFlip) 02/15/2022 H1N1 2009 Influenza, IM 05/10/2009 Pneumococcal [...] Miscellaneous Notes * Telephone Encounter - Alis Braxton RN - 03/10/2024 12:03 PM EST PC received from the pt's daughter Tiffanie. Tiffanie verbalized frustration and stress related to her fathers worsening Parkinson's medication. Tiffanie in tears because she said that her father is not safe at home anymore. States that she has him set up at [facility] but he is giving her a hard time about going because of an issue with his new Rx for Sinemt CR. he just got a shipment from mail order and [facility] needs meds in blister packs. Pt insisting that he can take care of himself but dtr states that he needs 24 hr supervision on this newmedication and she is not able to provide it. Tiffanie asking for maybe a referral Area on Aging or someone to tell him he has to go to [facility] other than her , states that they have been fighting about it. TT message sent to Aron WEBER who is scheduled for a home visit tomorrow and Karen SANTOSW for follow up and assistance with pt and dtr. documented in this encounter Plan of Treatment Upcoming Encounters Date Type Department Care Team (Late st Contact Info) Description 03/11/2024 2:30 PM EST Home Visit [facility], [facility] [address] [address] Aron Schmid RN [address] [address] 03/18/2024 2:30 PM EST Office Visit Cardiology, [facility] [address] [address] Marcia Collins CRNP [address] [address] 04/09/2024 11:30 AM EST Scheduled Telephone [facility], [facility] [address] [place] [address] Teresa Johnson RDN [address] [facility] [place] [address] 05/27/2024 6:20 PM EST Office Visit [address] [address] Kaz Robledo MD [address] [place] [address] 06/26/2024 1:40 PM EST Office Visit Neurology [facility] [address] [facility] [place] [address] Darron Calvillo MD [address] [place], [place] [address] 10/24/2024 2:00 PM EDT Office Visit Dermatology [facility] [address] [facility] [place] [address] Mitchell Mack MD [address] [place] [address] Scheduled Procedures Name Priority Associated Diagnoses Date/Ti [...] Advance Directives occurred with: Patient Care Teams Greeter Guest Services Relationship Specialty Start Date End Date Kaz Robledo MD [address] [place] [facility] [place] [address] PCP - General Family Medicine 03/05/17 documented as of this encounter
--- OUTSIDE RECORDS SUMMARY | 2024-03-26 07:09 | External Medical Summary | Summary of Care ---
Author Name Unknown Organization [facility] Address [address] [facility] [place] [address] Phone [phone] Care Team Providers Care Cut Off Sawyer Log Name Role Phone Kaz Robledo MD Primary Care Provider +1- [phone] Reason for Visit * Reason Onset Date Comments [facility]: Maintenance 02/20/2024 Encounter Details Date Type Department Care Team (Late st Contact Info) Description 02/20/2024 Telephone [facility], [facility] [address] [employer] [address] [place] [address] Sravanthi Bennett, RN [address] [employer] [address] [place] [place] [address] [facility]: Maintenance Allergies Active Allergy Reactions Criticality Noted Date Comments Atorvastatin Muscle pain 12/11/2016 Bee Stings 02/21/1999 Hives,intense itching,edema Gabapentin 10/02/2023 "Couldn't handle it" documented as of this encounter (statuses as of 03/14/2024) Medications LOW-DOSE ASPIRIN 81 MG PO TABS [...] 30 minutes prior to injection. 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 Hearing loss 07/09/2007 documented as of this encounter (statuses as of 03/14/2024) Resolved Problems Problem Noted Date Diagnosed Date [...] Sleep Disorder Resea [facility] Other*[id number] 06/26/2011 12/08/2015 EXAMINATION OF PARTICIPANT I N CLINICAL TRIAL-Genomics 06/04/2009 08/20/2009 Overview (08/20/2009): Renamed Per Clinical Trials Billing Project. Study Titile: Genomic Markers for Patients with Cardiovascular Disease Project #[id number] PI: Radha Yepez MD Please call [phone] with study related questions GENOMICS CARDIO RESEARCH OTHER*[id number] 06/04/2009 06/13/2016 Overview (08/20/2009): Renamed Per Clinical Trials Billing Project. Study Titile: Genomic Markers for Patients with Cardiovascular Disease Project #[id number] PI: Radha Yepez MD Please call [phone] with study related questions Benign neoplasm of [...] as of this encounter (statuses as of 03/14/2024) Immunizations Name Administration Dates Next Due COVID-19 [...] Entry Date Author No 10/20/2023 9:22 AM ALLIET Nba Estes RN documented in this encounter Miscellaneous Notes * Telephone Encounter - Sravanthi Bennett RN - 02/20/2024 8:59 AM EDT Please update pt's family service caseworker [facility]. He is still with [facility] in [facility] but it is no longer Sravanthi Bennett. His CM is now Aron Schmid. Thank you! documented in this encounter Plan of Treatment Upcoming Encounters Date Type Department Care Team (Late st Contact Info) Description 03/18/2024 2:30 PM EST Office Visit Cardiology, [facility] 132 [place] [address] Marcia Collins CRNP [address] [place] [address] 03/19/2024 2:30 PM EST [facility] Visit [facility], [facility] [place] [address] Aron Schmid, GUS [address] [facility] [place] [address] 04/09/2024 11:30 AM EST Scheduled Telephone [facility], [facility] [address] [place] [facility] [place] [address] Teresa Johnson, RDN [address] [place] [facility] [place] [address] 05/27/2024 6:20 PM EST Office Visit Family [facility] [address] [place] [address] Kaz Robledo MD [address] [place] [address] 06/26/2024 1:40 PM EST Office Visit Neurology [facility] [address] [facility] [place] [address] Darron Calvillo MD [address] [place] [address] 10/24/2024 2:00 PM EDT Office Visit Dermatology [facility] 200 [facility] [place] [address] Mitchell Mack MD [address] [facility] [place] [address] Scheduled Procedures Name Priority Associated Diagnoses Date/Ti [...] Advance Directives occurred with: Patient Care Teams Cut Off Sawyer Log Relationship Specialty Start Date End Date Kaz Robledo MD [address] [place] [address] PCP - General Family Medicine 03/05/17 documented as of this encounter
--- OUTSIDE RECORDS SUMMARY | 2024-03-26 07:09 | External Medical Summary | Summary of Care ---
Author Name Unknown Organization [facility] Address [address] [place] [address] Phone [phone] Care Team Providers Care Dial Buffer Name Role Phone Kaz Robledo MD Primary Care Provider +1- [phone] Reason for Visit * Reason Onset Date Comments Tech Writer Documentation 03/10/2024 Encounter Details Date Type Department Care Team (Late st Contact Info) Description 03/10/2024 10:30 AM EST Scheduled Telephone [facility], [facility] [address] [facility] [place] [address] [facility] [address] [facility] [place] [address] Allergies Active Allergy Reactions Criticality Noted Date [...] closely with cardiology [facility] Dyslipidemia, goal LDL below [...] Disorder Resea [facility] Other*[id number] 06/26/2011 12/08/2015 EXAMINATION OF PARTICIPANT I N CLINICAL TRIAL-Genomics 06/04/2009 08/20/2009 Overview: Renamed Per Clinical Trials Billing Project. Study Titile: Genomic Markers for Patients with Cardiovascular Disease Project #[id number] PI: Radha Yepez MD Please call [phone] with study related questions GENOMICS CARDIO RESEARCH OTHER*[id number] 06/04/2009 06/13/2016 Overview: Renamed Per Clinical Trials Billing Project. Study Titile: Genomic Markers for Patients with Cardiovascular Disease Project #[id number] PI: Radha Yepez MD Please call [phone] with study related questions Benign neoplasm of [...] encounter Miscellaneous Notes * Telephone Encounter - Karen Lantigua LCSW - 03/10/2024 2:51 PM EST Worker was consulted by Ricardo WEBERhotel reservation agent Daughter calling for direction with her father. Landen continues to be uncooperative. The situation is very stressful for Tiffanie. Chart was reviewed. Worker placed a call to Tiffanie >daughter at [phone]. Family dynamic between her and her father continue to be stress full as she is the POA and Landen continues with his manipulative behavior. As shared, pt is having a medication change that requires monitoring. Personal care facility has been arranged and they are capable of providing the supervision need andpt has the funding. Landen has decided to be obstructive and not go to the facility. Pt's daughter is unable to to provided the needed supervision. Options were discussed again: 1/ If she things pt is a danger to himself then she can call a report to Protective Services ( number was provided). 2/ Hospice 3/ Re-send her POA and defer to another family member or someone else. Worker provided the opportunity to have Tiffanie share her feelings /thoughts/ and frustrations. Validation and empathetic listening was engaged throughout the conversation. Worker explored coping strategies to minimize and facilitate dealing with her stressful situation. Tiffanie will take the above under advisement. Tiffanie offered no other complaints or concerns at this time. Emotional Support was offered. Tiffanie was encouraged to [facility] with any questions or concerns . Phone number for [facility] was provided . Worker provided contact number [phone] for any follow up needed. Karen Lantigua LCSW [facility] Outpatient C[facility] [phone] documented in this encounter Plan of Treatment Upcoming Encounters Date Type Department Care Team (Late st Contact Info) Description 03/11/2024 2:30 PM EST Home Visit [facility] [place], [facility] [address] [address] Aron Schmid, GUS [address] [address] 03/18/2024 2:30 PM EST Office Visit Cardiology, [facility] [address] [place] [address] Marcia Collins CRNP [address] [place] [address] 04/09/2024 11:30 AM EST Scheduled Telephone [facility], [facility] [address] [place] [facility] [place] [address] Teresa Johnson, RDN [address] [place] [facility] [place] [address] 05/27/2024 6:20 PM EST Office Visit Family [facility] [address] [place] [address] Kaz Robledo MD [address] [place] [address] 06/26/2024 1:40 PM EST Office Visit Neurology [facility] [address] [facility] [place] [address] Darron Calvillo MD [address] [place] [address] 10/24/2024 2:00 PM EDT Office Visit Dermatology [facility] [address] [facility] [place] [address] Mitchell Mack MD [address] [facility] [place] [address] Scheduled Procedures Name Priority Associated Diagnoses Date/Ti [...] Advance Directives occurred with: Patient Care Teams Dial Buffer Relationship Specialty Start Date End Date Kaz Robledo MD [address] [place] [address] PCP - General Family Medicine 03/05/17 documented as of this encounter
--- OUTSIDE RECORDS SUMMARY | 2024-03-26 07:09 | External Medical Summary | Summary of Care ---
Author Name Unknown Organization [facility] Address [address] [place] [address] Phone [phone] Care Team Providers Care Stripper Latex Name Role Phone Kaz Robledo MD Primary Care Provider +1- [phone] Encounter Details Date Type Department Care Team (Late st Contact Info) Description 03/07/2024 Referral Triage Care Coordination and Integration [address] [place], [place] [id number] Bertha Edgar, HENRIETTA [address] [place], [place] [id number] Allergies Active Allergy Reactions Criticality Noted Date Comments Atorvastatin Muscle pain 12/11/2016 Bee Stings 02/21/1999 Hives,intense itching,edema Gabapentin 10/02/2023 "Couldn't handle it" documented as of this encounter (statuses as of 03/07/2024) Medications Medication Sig Dispensed Refills Start Date [...] 30 minutes prior to injection. 2 Each 01/31/2024 Active clonazePAM 0.5 MG Oral Tablet [...] as of this encounter (statuses as of 03/07/2024) Active Problems Problem Noted Date Diagnosed Date Carotid stenosis, asymptomatic, right 12/19/2023 Personal history of [place] (myocardial infarction) 0 10/20/2023 Overview: 10/20/23 Parkinson's [...] closely with cardiology [facility] Dyslipidemia, goal LDL below 100 04/15/2009 Overview: Per Lipid Taxonomy. Hearing loss 07/09/2007 documented as of this encounter (statuses as of 03/07/2024) Resolved Problems Problem Noted Date Diagnosed Date [...] Genetic Sleep Disorder Resea [facility] Other*[id number] 06/26/2011 12/08/2015 EXAMINATION OF PARTICIPANT I N CLINICAL TRIAL-Genomics 06/04/2009 08/20/2009 Overview: Renamed Per Clinical Trials Billing Project. Study Titile: Genomic Markers for Patients with Cardiovascular Disease Project #[id number] PI: Radha Yepez MD Please call [phone] with study related questions GENOMICS CARDIO RESEARCH OTHER*[id number] 06/04/2009 06/13/2016 Overview: Renamed Per Clinical Trials Billing Project. Study Titile: Genomic Markers for Patients with Cardiovascular Disease Project #[id number] PI: Radha Yepez MD Please call [phone] with study related questions Benign neoplasm of [...] as of this encounter (statuses as of 03/07/2024) Immunizations Name Administration Dates Next Due COVID-19 [...] No 10/20/2023 documented as of this encounter Plan of Treatment Upcoming Encounters Date Type Department Care Team (Late st Contact Info) Description 03/11/2024 2:30 PM EST Home Visit [facility], [address] [place] [address] Aron Schmid, RN [address] [place] [address] 03/18/2024 2:30 PM EST Office Visit Cardiology, [facility] [place] [address] Marcia Collins CRNP [address] [place] [address] 04/09/2024 11:30 AM EST Scheduled Telephone [facility], [facility] [address] [facility] [address] Teresa Johnson, RDN [address] [facility] [address] 05/27/2024 6:20 PM EST [facility] [address] [place] [address] Kaz Robledo MD [address] [place] [address] 06/26/2024 1:40 PM EST Office Visit [facility]rology [facility] [address] [facility] [place] [address] Darron Calvillo MD [address] [place] [address] 10/24/2024 2:00 PM EDT Office Visit Dermatology [facility] [address] [facility] [place] [address] Mitchell Mack MD [address] [facility] [place] [address] Scheduled Procedures Name Priority Associated Diagnoses Date/Ti [...] Advance Directives occurred with: Patient Care Teams Stripper Latex Relationship Specialty Start Date End Date Kaz Robledo MD [address] [place] [address] PCP - General Family Medicine 03/05/17 documented as of this encounter
--- OUTSIDE RECORDS SUMMARY | 2024-03-26 07:10 | External Medical Summary | Summary of Care ---
Author Name Unknown Organization [facility] Address [address] [place] [address] Phone [phone] Care Team Providers Care Carpet Cutter Name Role Phone Kaz Robledo MD Primary Care Provider +1- [phone] Reason for Visit * Reason Onset Date Comments Advice 03/05/2024 Encounter Details Date Type Department Care Team (Late st Contact Info) Description 03/05/2024 Telephone Neurology [place] [facility], [place] [address] [place] [address] Services, Scheduling [address] [place] [address] Advice Allergies Active Allergy Reactions Criticality Noted Date Comments Atorvastatin Muscle pain 12/11/2016 Bee Stings 02/21/1999 Hives,intense itching,edema Gabapentin 10/02/2023 "Couldn't handle it" documented as of this encounter (statuses as of 03/05/2024) Medications Medication Sig Dispensed Refills Start Date [...] as of this encounter (statuses as of 03/05/2024) Active Problems Problem Noted Date Diagnosed Date Carotid stenosis, asymptomatic, right 12/19/2023 Personal history of [place] (myocardial infarction) 0 10/20/2023 Overview: 10/20/23 Parkinson's [...] as of this encounter (statuses as of 03/05/2024) Resolved Problems Problem Noted Date Diagnosed Date [...] 09/03/2017 Genetic Sleep Disorder Resea [facility] Other*[id number] 06/26/2011 12/08/2015 EXAMINATION OF PARTICIPANT I N CLINICAL TRIAL-Genomics 06/04/2009 08/20/2009 Overview: Renamed Per Clinical Trials Billing Project. Study Titile: Genomic Markers for Patients with Cardiovascular Disease Project #[id number] PI: Radha Yepez MD Please call [phone] with study related questions GENOMICS CARDIO RESEARCH OTHER*[id number] 06/04/2009 06/13/2016 Overview: Renamed Per Clinical Trials Billing Project. Study Titile: Genomic Markers for Patients with Cardiovascular Disease Project #[id number] PI: Radha Yepez MD Please call [phone] with study related questions Benign neoplasm of [...] as of this encounter (statuses as of 03/05/2024) Immunizations Name Administration Dates Next Due COVID-19 mRNA, LNP-s, No Pre serve, 2-Dose Series (Moderna) 07/02/2020,06/03/2020 COVID-19, mRNA, LNP-s, PF, B ooster, 100mcg/0.5mg (Moderna) 10/06/2021,03/02/2021 Covid-19, Mrna, Lnp-s, Pf, B ivalent, 30 Mcg, IM, 12 yrs and above (Brevity) 02/15/2022 H1N1 2009 Influenza, IM 05/10/2009 Pneumococcal [...] EC Provider patient is established with: Dr Calvillo What is the concern or issue they are having: Patients daughter calling in with concerns of possible duplicate medication prescribed. Is requesting a return call to address concerns of medication. Phone number for nurse to call back: [phone] Clinic has 24-48 hours to respond to caller. If caller is calling back before timeframe with any changes in condition/issues reported, update TEand re-route to appropriate pool If caller is calling back before timeframe- update TE- no need to re-route [facility] Neurology Pool- [facility] Neuro Cytopathology Technologist- [id number] (All messages get sent to the [facility]) Neurology Pool Numbers- [place] and [facility] patients - follow normal process Ops req [facility] Neurology ([place])- [id number] Ops req [place] Neurology ([place]- [facility] Only)- [id number] Neurosurgery Pool Numbers- [place] patients- follow normal process Ops req Neurosurgery [facility] ([place])- [id number] Ops req Neurosurgery [facility] ([place] Only) [id number] documented in this encounter Plan of Treatment Upcoming Encounters Date Type Department Care Team (Late st Contact Info) Description 03/11/2024 2:30 PM EST [facility], [facility] [address] [address] Aron Schmid, RN [address] [address] 03/18/2024 2:30 PM EST Office Visit Cardiology, [facility] [address] [facility] [place] [address] Marcia Collins CRNP [address] [place] [address] 04/09/2024 11:30 AM EST Scheduled Telephone [facility], [facility] [address] [place] [address] Teresa Johnson, TRAVISN [address] [place] [address] 05/27/2024 6:20 PM EST Office Visit [facility] [address] [place] [address] Kaz Robledo MD [address] [place], [place] [address] 06/26/2024 1:40 PM EST Office Visit Neurology [facility] [address] [facility] [address] Darron Calvillo MD [address] [place] [address] 10/24/2024 2:00 PM EDT Office Visit Dermatology [facility] [address] [facility] [address] Mitchell Mack MD [address] [facility] [place] [address] Scheduled Procedures Name Priority Associated Diagnoses Date/Ti [...] Advance Directives occurred with: Patient Care Teams Carpet Cutter Relationship Specialty Start Date End Date Kaz Robledo MD [address] [place] [address] PCP - General Family Medicine 03/05/17 documented as of this encounter
--- OUTSIDE RECORDS SUMMARY | 2024-03-26 07:10 | External Medical Summary | Summary of Care ---
Author Name Unknown Organization [facility] Address [address] [place] [address] Phone [phone] Care Team Providers Care Shipping Manager Name Role Phone Kaz Robledo MD Primary Care Provider +1- [phone] Reason for Visit * Reason Onset Date Comments Advice 03/05/2024 Encounter Details Date Type Department Care Team (Late st Contact Info) Description 03/05/2024 Telephone Neurology [address] [facility], [place] [address] [place] [address] Services, Scheduling [address] [place] [address] Advice Allergies Active Allergy Reactions Criticality Noted [...] stenosis, asymptomatic, right 12/19/2023 Personal history of [place] (myocardial infarction) 0 10/20/2023 Overview: 10/20/23 Parkinson's [...] Sleep Disorder Resea [facility] Other*[id number] 06/26/2011 12/08/2015 EXAMINATION OF PARTICIPANT I N CLINICAL TRIAL-Genomics 06/04/2009 08/20/2009 Overview: Renamed Per Clinical Trials Billing Project. Study Titile: Genomic Markers for Patients with Cardiovascular Disease Project #[id number] PI: Radha Yepez MD Please call [phone] with study related questions GENOMICS CARDIO RESEARCH OTHER*[id number] 06/04/2009 06/13/2016 Overview: Renamed Per Clinical Trials Billing Project. Study Titile: Genomic Markers for Patients with Cardiovascular Disease Project #[id number] PI: Radha Yepez MD Please call [phone] with study related questions Benign neoplasm of [...] 30 Mcg, IM, 12 yrs and above (LoungeUp) 02/15/2022 H1N1 2009 Influenza, IM 05/10/2009 Pneumococcal [...] Phone number for nurse to call back: [phone] Clinic has 24-48 hours to respond to caller. If caller is calling back before timeframe with any changes in condition/issues reported, update TEand re-route to appropriate pool If caller is calling back before timeframe- update TE- no need to re-route [facility] Neurology Pool- [facility] Neuro Manager Reliability- [id number] (All messages get sent to the [facility]) Neurology Pool Numbers- [place] and [facility] patients - follow normal process Ops req [facility] Neurology ([place])- [id number] Ops req [place] Neurology ([place]- [facility] and [facility] clinics Only)- [id number] Neurosurgery Pool Numbers- [place] patients- follow normal process Ops req Neurosurgery [facility] ([place])- [id number] Ops req Neurosurgery [facility] ([place] Only) [id number] documented in this encounter Plan of Treatment Upcoming Encounters Date Type Department Care Team (Late st Contact Info) Description 03/11/2024 2:30 PM EST [facility] Visit [facility], [facility] [address] [address] Aron Schmid, RN [address] [address] 03/18/2024 2:30 PM EST Office Visit Cardiology, [facility] [address] [place] [address] Marcia Collins CRNP [address] [facility] [place] [address] 04/09/2024 11:30 AM EST Scheduled Telephone [facility], [facility] [address] [place] [address] Teresa Johnson, TRAVISN [address] [place] [facility] [place] [address] 05/27/2024 6:20 PM EST Office Visit [facility] [address] [place] [address] Kaz Robledo MD [address] [place], [place] [address] 06/26/2024 1:40 PM EST Office Visit Neurology [facility] [address] [facility] [address] Darron Calvillo MD [address] [place] [address] 10/24/2024 2:00 PM EDT Office Visit Dermatology [facility] [address] [facility] [address] Mitchell Mack MD [address] [facility] [place] [address] Scheduled Procedures Name Priority Associated Diagnoses Date/Ti [...] Advance Directives occurred with: Patient Care Teams Shipping Manager Relationship Specialty Start Date End Date Kaz Robledo MD [address] [place] [address] PCP - General Family Medicine 03/05/17 documented as of this encounter
--- OUTSIDE RECORDS SUMMARY | 2024-03-26 07:10 | External Medical Summary | Summary of Care ---
Author Name Unknown Organization [facility] Address [address] [place] [address] Phone [phone] Care Team Providers Care Parts Classifier Name Role Phone Kaz Robledo MD Primary Care Provider +1- [phone] Reason for Visit * Reason Onset Date Comments Advice 03/05/2024 Encounter Details Date Type Department Care Team (Late st Contact Info) Description 03/05/2024 Telephone Neurology [facility], [place] [address] [place] [address] Services, Scheduling [address] [place] [address] Advice Allergies Active Allergy Reactions Criticality Noted [...] stenosis, asymptomatic, right 12/19/2023 Personal history of [place] (myocardial infarction) 0 10/20/2023 Overview: 10/20/23 Parkinson's [...] disorder 02/15/2012 09/03/2017 Genetic Sleep Disorder Resea [facility] Other*[id number] 06/26/2011 12/08/2015 EXAMINATION OF PARTICIPANT I N CLINICAL TRIAL-Genomics 06/04/2009 08/20/2009 Overview: Renamed Per Clinical Trials Billing Project. Study Titile: Genomic Markers for Patients with Cardiovascular Disease Project #[id number] PI: Radha Yepez MD Please call [phone] with study related questions GENOMICS CARDIO RESEARCH OTHER*[id number] 06/04/2009 06/13/2016 Overview: Renamed Per Clinical Trials Billing Project. Study Titile: Genomic Markers for Patients with Cardiovascular Disease Project #[id number] PI: Radha Yepez MD Please call [phone] with study related questions Benign neoplasm of [...] encounter Miscellaneous Notes * Telephone Encounter - Angela Lees OSA [...] Phone number for nurse to call back: [phone] Clinic has 24-48 hours to respond to caller. If caller is calling back before timeframe with any changes in condition/issues reported, update TEand re-route to appropriate pool If caller is calling back before timeframe- update TE- no need to re-route Peds Neurology Pool- [facility] Neuro Lecturer In Marketing- [id number] (All messages get sent to the [facility]) Neurology Pool Numbers- [place] and [place] patients - follow normal process Ops req [facility] Neurology ([place])- [id number] Ops req [place] Neurology ([place]- [facility] clinics Only)- [id number] Neurosurgery Pool Numbers- [place] patients- follow normal process Ops req Neurosurgery [facility] ([place])- [id number] Ops req Neurosurgery [facility] ([place] Only) [id number] documented in this encounter Plan of Treatment Upcoming Encounters Date Type Department Care Team (Late st Contact Info) Description 03/11/2024 2:30 PM EST [facility] Visit [facility], [facility] [address] [address] Aron Schmid, RN [address] [address] 03/18/2024 2:30 PM EST Office Visit Cardiology, [facility] [address] [address] Marcia Collins CRNP [address] [address] 04/09/2024 11:30 AM EST Scheduled Telephone [facility], [facility] [address] [facility] [place] [address] Teresa Johnson, RDN [address] [facility] [place] [address] 05/27/2024 6:20 PM EST Office Visit [facility] [address] [facility], [place] [id number] Kaz Robledo MD [address] [facility], [place] [address] 06/26/2024 1:40 PM EST Office Visit Neurology [facility] [address] [facility] [place] [address] Darron Calvillo MD [address] [place] [address] 10/24/2024 2:00 PM EDT Office Visit Dermatology [facility] [address] [facility] [place] [address] Mitchell Mack MD [address] [place] [address] Scheduled Procedures Name Priority Associated Diagnoses Date/Ti [...] Advance Directives occurred with: Patient Care Teams Parts Classifier Relationship Specialty Start Date End Date Kaz Robledo MD [address] [facility] [address] PCP - General Family Medicine 03/05/17 documented as of this encounter
--- OUTSIDE RECORDS SUMMARY | 2024-03-26 07:10 | External Medical Summary | Summary of Care ---
Author Name Unknown Organization [facility] Address [address] [place] [address] Phone [phone] Care Team Providers Care Punch Box Tender Name Role Phone Kaz Robledo MD Primary Care Provider +1- [phone] Reason for Visit * Reason Onset Date Comments Advice 03/06/2024 Encounter Details Date Type Department Care Team (Late st Contact Info) Description 03/05/2024 Telephone Neurology [place], [place] [address] [place] [address] Services, Scheduling [address] [place] [address] Advice Allergies Active Allergy Reactions Criticality Noted Date Comments Atorvastatin Muscle pain 12/11/2016 Bee Stings 02/21/1999 Hives,intense itching,edema Gabapentin 10/02/2023 "Couldn't handle it" documented as of this encounter (statuses as of 03/06/2024) Medications Medication Sig Dispensed Refills Start Date [...] as of this encounter (statuses as of 03/06/2024) Active Problems Problem Noted Date Diagnosed Date Carotid stenosis, asymptomatic, right 12/19/2023 Personal history of [place] (myocardial infarction) 0 10/20/2023 Overview: 10/20/23 Parkinson's [...] as of this encounter (statuses as of 03/06/2024) Resolved Problems Problem Noted Date Diagnosed Date [...] 09/03/2017 Genetic Sleep Disorder Resea [facility] Other*[id number] 06/26/2011 12/08/2015 EXAMINATION OF PARTICIPANT I N CLINICAL TRIAL-Genomics 06/04/2009 08/20/2009 Overview: Renamed Per Clinical Trials Billing Project. Study Titile: Genomic Markers for Patients with Cardiovascular Disease Project #[id number] PI: Radha Yepez MD Please call [phone] with study related questions GENOMICS CARDIO RESEARCH OTHER*[id number] 06/04/2009 06/13/2016 Overview: Renamed Per Clinical Trials Billing Project. Study Titile: Genomic Markers for Patients with Cardiovascular Disease Project #[id number] PI: Radha Yepez MD Please call [phone] with study related questions Benign neoplasm of [...] as of this encounter (statuses as of 03/06/2024) Immunizations Name Administration Dates Next Due COVID-19 mRNA, LNP-s, No Pre serve, 2-Dose Series (Moderna) 07/02/2020,06/03/2020 COVID-19, mRNA, LNP-s, PF, B ooster, 100mcg/0.5mg (Moderna) 10/06/2021,03/02/2021 Covid-19, Mrna, Lnp-s, Pf, B ivalent, 30 Mcg, IM, 12 yrs and above (Pipette) 02/15/2022 H1N1 2009 Influenza, IM 05/10/2009 Pneumococcal [...] as of this encounter Miscellaneous Notes * Addendum Note - Tiffanie Walton LPN [...] Phone number for nurse to call back: [phone] Clinic has 24-48 hours to respond to caller. If caller is calling back before timeframe with any changes in condition/issues reported, update TEand re-route to appropriate pool If caller is calling back before timeframe- update TE- no need to re-route Peds Neurology Pool- [facility] Neuro Forest Resource Specialist- [id number] (All messages get sent to the [facility]) Neurology Pool Numbers- [place] and [facility] patients - follow normal process Ops req [facility] Neurology ([place])- [id number] Ops req NE Neurology ([place]- [facility] and [facility] clinics Only)- [id number] Neurosurgery Pool Numbers- [place] patients- follow normal process Ops req Neurosurgery [facility] ([place])- [id number] Ops req Neurosurgery [facility] ([place] Only) [id number] documented in this encounter Plan of Treatment Upcoming Encounters Date Type Department Care Team (Late st Contact Info) Description 03/11/2024 2:30 PM EST [facility], [facility] [address] [facility] [place] [address] Aron Schmid, RN [address] [place] [address] 03/18/2024 2:30 PM EST Office Visit Cardiology, [facility] [address] [place] [address] Marcia Collins CRNP [address] [place] [address] 04/09/2024 11:30 AM EST Scheduled Telephone [facility], [facility] [address] [facility] [place] [address] Teresa Johnson, RDN [address] [facility] [place] [address] 05/27/2024 6:20 PM EST Office Visit [facility] [address] [place] [phone] Kaz Robledo MD [address], [place] [id number] 06/26/2024 1:40 PM EST Office Visit Neurology [facility] [address] [facility] [place] [address] Darron Calvillo MD [address] [place] [address] 10/24/2024 2:00 PM EDT Office Visit Dermatology [place] [facility] [address] [facility] [place] [address] Mitchell Mack MD [address] [facility] [place] [address] Scheduled Procedures Name Priority Associated Diagnoses Date/Ti [...] Advance Directives occurred with: Patient Care Teams Punch Box Tender Relationship Specialty Start Date End Date Kaz Robledo MD [address] [place] [address] PCP - General Family Medicine 03/05/17 documented as of this encounter
--- OUTSIDE RECORDS SUMMARY | 2024-03-26 07:10 | External Medical Summary | Summary of Care ---
Author Name Unknown Organization [facility] Address [address] [place] [address] Phone [phone] Care Team Providers Care Telegraphic Typewriter Installer Name Role Phone Kaz Robledo MD Primary Care Provider +1- [phone] Reason for Referral * Social Care (Within 10 days (routine)) - Authorized Specialty Diagnoses / Procedures Referred By Contac t Referred To Contact [place] Diagnoses Parkinson's disease without dyskinesia or fluctuating manifestations (HCC) Tremor Darron Cotto MD [address] [place] [address] Referral ID Status Reason Start Date Expiration Date Visits Requested Visits Authorized [id number] Authorized Specialty Services Required 4 [phone] Question Answer Referral Priority Within 10 days (routine) Where should this appointment be scheduled? [facility] Role Director Of Student Affairs Director Of Student Affairs Referral Reason Transportation Comments Is patient being transitioned from [facility] to Complex Case Management? No * Evaluate & Treat - Unlimited Visits (Within 10 days (routine)) - Authorized Specialty Diagnoses / Procedures Referred By Contac t Referred To Contact HOME CARE / Home Care Diagnoses Parkinson's disease without dyskinesia or fluctuating manifestations (HCC) Tremor Darron Cotto MD [address] [place] [address] Referral ID Status Reason Start Date Expiration Date Visits Requested Visits Authorized [id number] Authorized Specialty Services Required 4 [phone] Question Answer Referral Priority Within 10 days (routine) Where should this appointment be scheduled? [facility] Comments Documentation of Gqee-vi-Rhov Encounter Addendum Patient Name: Landen Camacho I certify that this patient is under my care and that I, or a nurse practitioner or physician's refinery operator assistant working with me, had a ssio-sd-nzwx encounter that meets the physician xtzk-qe-jeuu encounter requirements with this patient on: 02/28/24 [...] effort and are for medical reasons or advent services or infrequently or of short duration when for other reason) because: Medication management Physician Signature: Date of Signature: Physician Printed Name: Tiffanie Walton LPN Reason for Visit * Reason Onset Date Comments Advice 03/06/2024 Encounter Details Date Type Department Care Team (Late st Contact Info) Description 03/05/2024 Telephone [address]rology [address] [place] [address] Services, Scheduling [address] [facility] [place] [address] Advice Allergies Active Allergy Reactions Criticality Noted [...] history of [place] (myocardial infarction) 0 10/20/2023 Overview: 10/20/23 Parkinson's [...] cardiology [facility] Dyslipidemia, goal LDL below 100 [...] Sleep Disorder Resea [facility] Other*[id number] 06/26/2011 12/08/2015 EXAMINATION OF PARTICIPANT I N CLINICAL TRIAL-Genomics 06/04/2009 08/20/2009 Overview: Renamed Per Clinical Trials Billing Project. Study Titile: Genomic Markers for Patients with Cardiovascular Disease Project #[id number] PI: Radha Yepez MD Please call [phone] with study related questions GENOMICS CARDIO RESEARCH OTHER*[id number] 06/04/2009 06/13/2016 Overview: Renamed Per Clinical Trials Billing Project. Study Titile: Genomic Markers for Patients with Cardiovascular Disease Project #[id number] PI: Radha Yepez MD Please call [phone] with study related questions Benign neoplasm of [...] She is going to get him into [place] and will call me back. * Addendum [...] Phone number for nurse to call back: [phone] Clinic has 24-48 hours to respond to caller. If caller is calling back before timeframe with any changes in condition/issues reported, update TEand re-route to appropriate pool If caller is calling back before timeframe- update TE- no need to re-route [facility] Neurology Pool- [facility] Neuro [place]- [id number] (All messages get sent to the [facility]) Neurology Pool Numbers- [place] and [facility] patients - follow normal process Ops req [facility] Neurology ([place])- [id number] Ops req NE Neurology ([place]- [facility] and [facility] clinics Only)- [id number] Neurosurgery Pool Numbers- [place] patients- follow normal process Ops req Neurosurgery [facility] ([place])- [id number] Ops req Neurosurgery [place] ([place] Only) [id number] documented in this encounter Plan of Treatment Upcoming Encounters Date Type Department Care Team (Late st Contact Info) Description 03/11/2024 2:30 PM EST Home Visit [facility], [address] [place] [address] Aron Schmid, RN [address] [place] [address] 03/18/2024 2:30 PM EST Office Visit Cardiology, [facility] [address] [place] [address] Marcia Collins CRNP [address] [place] [address] 04/09/2024 11:30 AM EST Scheduled Telephone [facility], [facility] [address] [place] [facility] [place] [id number] Teresa Johnson, RDN [address] [place] [facility] [place] [id number] 05/27/2024 6:20 PM EST Office Visit Family [facility] [address] [place] [phone] Kaz Robledo MD [address] [place] [address] 06/26/2024 1:40 PM EST Office Visit Neurology [facility] [address] [facility] [place] [address] Darron Birch MD [address] [place] [address] 10/24/2024 2:00 PM EDT Office Visit Dermatology [facility] [address] [facility] [place] [address] Mitchell Mack MD [address] [facility] [place] [address] Scheduled Procedures Name Priority Associated Diagnoses Date/Ti [...] Advance Directives occurred with: Patient Care Teams Telegraphic Typewriter Installer Relationship Specialty Start Date End Date Kaz Robledo MD [address] [place] [facility] [place] [id number] PCP - General Family Medicine 03/05/17 documented as of this encounter
--- OUTSIDE RECORDS SUMMARY | 2024-03-26 07:10 | External Medical Summary | Summary of Care ---
Author Name Unknown Organization [facility] Address [address] [place] [address] Phone [phone] Care Team Providers Care Traveling Freight Agent Name Role Phone Kaz Robledo MD Primary Care Provider +1- [phone] Reason for Referral * Social Care (Within 10 days (routine)) - Authorized Specialty Diagnoses / Procedures Referred By Contac t Referred To Contact Telephone Mechanic Diagnoses Parkinson's disease without dyskinesia or fluctuating manifestations (HCC) Tremor Darron Cotto MD [address] [place] [address] Referral ID Status Reason Start Date Expiration Date Visits Requested Visits Authorized [id number] Authorized Specialty Services Required 4 [phone] Question Answer Referral Priority Within 10 days (routine) Where should this appointment be scheduled? [facility] Role Hydroponics Grower Hydroponics Grower Referral Reason Transportation Comments Is patient being transitioned from [facility] to Complex Case Management? No * Evaluate & Treat - Unlimited Visits (Within 10 days (routine)) - Authorized Specialty Diagnoses / Procedures Referred By Contac t Referred To Contact HOME CARE / Home Care Diagnoses Parkinson's disease without dyskinesia or fluctuating manifestations (HCC) Tremor Darron Cotto MD [address] [place] [address] Referral ID Status Reason Start Date Expiration Date Visits Requested Visits Authorized [id number] Authorized Specialty Services Required 4 [phone] Question Answer Referral Priority Within 10 days (routine) Where should this appointment be scheduled? [facility] Comments Documentation of Mnrn-yo-Jyfv Encounter Addendum Patient Name: Landen Camacho I certify that this patient is under my care and that I, or a nurse practitioner or physician's data control assistant working with me, had a ands-cw-tqoq encounter that meets the physician iwwv-wa-ljmx encounter requirements with this patient on: 02/28/24 [...] effort and are for medical reasons or taoism services or infrequently or of short duration [...] [place] [phone] Services, Scheduling [address] [facility] [place] [address] Advice Allergies Active Allergy Reactions Criticality Noted [...] stenosis, asymptomatic, right 12/19/2023 Personal history of [place] (myocardial infarction) 0 10/20/2023 Overview: 10/20/23 Parkinson's [...] closely with cardiology [facility] Dyslipidemia, goal LDL below [...] Genetic Sleep Disorder Resea [facility] Other*[id number] 06/26/2011 12/08/2015 EXAMINATION OF PARTICIPANT I N CLINICAL TRIAL-Genomics 06/04/2009 08/20/2009 Overview: Renamed Per Clinical Trials Billing Project. Study Titile: Genomic Markers for Patients with Cardiovascular Disease Project #[id number] PI: Radha Yepez MD Please call [phone] with study related questions GENOMICS CARDIO RESEARCH OTHER*[id number] 06/04/2009 06/13/2016 Overview: Renamed Per Clinical Trials Billing Project. Study Titile: Genomic Markers for Patients with Cardiovascular Disease Project #[id number] PI: Radha Yepez MD Please call [phone] with study related questions Benign neoplasm of [...] encounter Miscellaneous Notes * Addendum Note - Darron Birch MD [...] Phone number for nurse to call back: [phone] Clinic has 24-48 hours to respond to caller. If caller is calling back before timeframe with any changes in condition/issues reported, update TEand re-route to appropriate pool If caller is calling back before timeframe- update TE- no need to re-route Ped Neurology Pool- [facility] Neuro Assembler Insulator- [id number] (All messages get sent to the [facility]) Neurology Pool Numbers- [place] and [facility] patients - follow normal process Ops req [facility] Neurology ([place])- [id number] Ops req NE Neurology ([place]- [facility] and [facility] clinics Only)- [id number] Neurosurgery Pool Numbers- [place] patients- follow normal process Ops req Neurosurgery [facility] ([place])- [id number] Ops req Neurosurgery [facility] ([place] Only) [id number] documented in this encounter Plan of Treatment Upcoming Encounters Date Type Department Care Team (Late st Contact Info) Description 03/11/2024 2:30 PM EST [facility], [facility] [address] [place] [address] Aron Schmid, RN [address] [place] [address] 03/18/2024 2:30 PM EST Office Visit Cardiology, [facility] [address] [place] [address] Marcia Collins CRNP [address] [place] [address] 04/09/2024 11:30 AM EST Scheduled Telephone [facility], [facility] [address] [facility] [address] NimeshTeresa mccormick, RDN [address] [facility] [place] [address] 05/27/2024 6:20 PM EST Office Visit [facility] [address] [place] [phone] Kaz Robledo MD [address] [place] [address] 06/26/2024 1:40 PM EST Office Visit Neurology [facility] [address] [facility] [place] [address] Darron Birch MD [address] [place] [address] 10/24/2024 2:00 PM EDT Office Visit Dermatology [facility] [address] [facility] [place] [address] Mitchell Mack MD [address] [facility] [place] [address] Scheduled Procedures Name Priority Associated Diagnoses Date/Ti [...] Advance Directives occurred with: Patient Care Teams Traveling Freight Agent Relationship Specialty Start Date End Date Kaz Robledo MD [address] [place] [address] PCP - General Family Medicine 03/05/17 documented as of this encounter
--- OUTSIDE RECORDS SUMMARY | 2024-03-26 07:10 | External Medical Summary | Summary of Care ---
Author Name Unknown Organization [facility] Address [address] [place] [address] Phone [phone] Care Team Providers Care Information Systems Operator Name Role Phone Usha Michaels MD Primary Care Provider +1- [phone] Reason for Visit * Reason Comments Follow Up Encounter Details Date Type Department Care Team (Latest Contact Info) Description 02/28/2024 8:40 AM EDT Office Visit Neurology [facility] [address] [place] [address] Darron Calvillo MD [address] [place] [address] Parkinson's disease without dyskinesia or fluctuating manifestations ([facility])* Allergies Active Allergy Reactions Criticality Noted Date Comments Atorvastatin Muscle pain 12/11/2016 Bee Stings 02/21/1999 Hives,intense itching,edema Gabapentin 10/02/2023 "Couldn't handle it" documented as of this encounter (statuses as of 02/28/2024) Medications Medication Sig Dispensed Refills Start Date [...] as of this encounter (statuses as of 02/28/2024) Active Problems Problem Noted Date Diagnosed Date Carotid stenosis, asymptomatic, right 12/19/2023 Personal history of PR (myocardial infarction) 0 10/20/2023 Overview: 10/20/23 Parkinson's [...] as of this encounter (statuses as of 02/28/2024) Resolved Problems Problem Noted Date Diagnosed Date [...] disorder 02/15/2012 09/03/2017 Genetic Sleep Disorder [facility] Other*[id number] 06/26/2011 12/08/2015 EXAMINATION OF PARTICIPANT I N CLINICAL TRIAL-Genomics 06/04/2009 08/20/2009 Overview: Renamed Per Clinical Trials Billing Project. Study Titile: Genomic Markers for Patients with Cardiovascular Disease Project #[id number] PI: Radha Yepez MD Please call [phone] with study related questions GENOMICS CARDIO RESEARCH OTHER*[id number] 06/04/2009 06/13/2016 Overview: Renamed Per Clinical Trials Billing Project. Study Titile: Genomic Markers for Patients with Cardiovascular Disease Project #[id number] PI: Radha Yepez MD Please call [phone] with study related questions Benign neoplasm of [...] as of this encounter (statuses as of 02/28/2024) Immunizations Name Administration Dates Next Due COVID-19 [...] Sign Reading Time Taken Comments Blood Pressure 98/60 02/28/2024 8:39 AM EDT Pulse 86 02/28/2024 8:39 AM EDT Temperature 35.6 C (96 F) 02/28/2024 8:39 AM EDT Respiratory Rate 18 02/28/2024 8:39 AM EDT Oxygen Saturation 96% 02/28/2024 8:39 AM EDT Inhaled Oxygen Concentration - - Weight 92.8 kg (204 lb 8 oz) 02/28/2024 8:39 AM EDT Height - - Body Mass Index 29.34 01/28/2024 10:51 AM EDT documented in this encounter Functional Status Functional Status Response [...] No 10/20/2023 documented as of this encounter Progress Notes * Darron Calvillo MD - 02/28/2024 8:37 AM EDT 02/28/2024 8:37 AM Landen Camacho 79 year old male REF: USHA MICHAELS [address] [place] [address] (office) [phone] (fax) Asked by Usha Michaels MD to render opinion regarding management of Parkinson's CC: Chief Complaint Patient presents with Follow Up HPI: The patient is a 79-year-old right-handed gentleman with Parkinson's disease. Here with daughter Tiffanie. He started with R hand tremor in the first part of 2022. The shakes were bothering him when he is trying to read the paper or when he is trying to button his shirt. His hand writing got scribblier. Walking has slowed down. He has no family members with tremors. He does have some ambulatoryissues and has neuropathy per EMG. Has a past smoker but has quit many years ago never drank. He was initially put on Topamax by his PCP but had difficulty tolerating the medication. He was then trialed on gabapentin. He has lots of stress because his has dementia. He himself has a history of dream enactment. Also noticed some difficulty of his balance when turning. 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 He was started on carbidopa/levodopa by Dr. Walton in September. I was reportedly some reduction in the tremor. However, this medication caused fluctuations in his blood pressure. His power of workers compensation attorney wanted the medication discontinued. He had a heart attack in October. He is not a candidate for any kind of surgery or stents. Has 3 blockages. His healthcare economics manager recommended that Carbidopa/Levodopa to allow for stabilization of his blood pressure. Without Carbidopa/Levodopa he still has fluctuations of his blood pressure. He is very tired duringthe day. Anxious. He feels sharper at night. I have personally reviewed his DaTSCAN which was a rather poor study with lots of background radiation, subtle asymmetry of dopamine transporter uptake. He still has a sense of smell. He only fell once when he tripped while having COVID. He also had some memory problems for the past year. He has difficulty turning around in bed at night. He walks with a 4 prong cane. He drinks 2 caffeinated beverages a day. 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] 05/25/2023 Adjustment disorder with mixed anxiety and depressed mood [F43.23] 05/25/2023 Problems related to living alone [Z60.2] 05/25/2023 Anxiety [F41.9] 08/03/2022 Other atherosclerosis of [place] arteries of extremities, bilateral legs (HCC) [I70.293] 07/27/2022 Prediabetes [R73.03] 09/12/2021 Per Prediabetes protocol Carotid occlusion, left [I65.22] 08/19/2020 PVD (peripheral vascular disease) ([facility]) [I73.9] 12/23/2018 Personal history of subdural hemorrhage [Z86.79] 09/03/2017 History of adenomatous polyp of colon [Z86.0101] 09/03/2017 History of nonmelanoma skin cancer [Z85.828] 06/28/2017 BCC's x 2 on the central lower back 05/23, BCC right nasolabial fold 11/19, BCC's left jawline 09/19, left oral commissure 11/18, 12/18, left lower back, chest 11/15 and neck 2000 Controlled substance agreement signed [Z79.899] 04/17/2017 Generalized osteoarthritis [M15.9] 08/03/2015 Vitamin D deficiency [E55.9] 03/18/2014 Obesity, Class I, BMI 30.0-34.9 (see actual BMI) [E66.811] 05/14/2012 bmi= 31.85 05/14/12 HTN, goal below 140/90 [I10] 02/15/2012 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 Hearing loss [H91.90] 07/09/2007 MEDICATIONS: Current Outpatient Medications Medication Sig Dispense Refill LOW-DOSE ASPIRIN 81 MG PO TABS Take 1 Tablet by mouth in the morning. DAILY MULTIVITAMIN PO TABS 1 tablet daily [...] day. To affected area. 45 g 0 Lisinopril 40 MG Oral Tablet Take 1 [...] AT BEDTIME for sleep 60 Tablet 0 No current facility-administered medications for this visit. ALLERGIES: Review of patient's allergies indicates: Allergen Reactions Atorvastatin Muscle pain Bee Stings Hives,intense itching,edema Gabapentin "Couldn't handle it" Social History Socioeconomic History Marital status: Spouse [...] on file Social History Narrative Works at [employer] Social Determinants of [facility] Financial Resource Strain: Low Risk (01/22/2023) Financial Resource Strain Do you have any trouble paying for your medications, or do you think you might in the future? (Adult - for ages 18 years and over): No Does your family have trouble paying for medicine? (Household - for ages 0-17 years): Not on file Food Insecurity: No Food Insecurity (10/20/2023) Food Insecurity Do you need food for this week? (Adult - for ages 18 years and over): No Are you able to get enough food for your family? (Household - for ages 0-17 years): Not on file Does your family need food this week? (Household - for ages 0-17 years): Not on file Do you always have enough food for your family? (Household - for ages 0-17 years): Not on file Transportation Needs: No Transportation Needs (10/20/2023) Transportation Needs Do you have trouble getting a ride to medical visits or work? (Adult - for ages 18 years and over):Never True Does your family have a hard time getting a ride to doctors visits? (Household - for ages 0-17 years): Not on file Has lack of transportation kept you from medical appointments, meetings, work, or from getting things needed for daily living? Check all that apply. (Adult - for ages 18 years and over): Not on file Do you (or your family) have trouble finding or paying for a ride (transportation)? (Household - for ages 0-17 years): Not on file Social Connections: Unknown (01/23/2024) Social Connections How often do you feel lonely or isolated from those around you? (Adult - for ages 18 years and over): Not on file Housing Stability: Low Risk (10/20/2023) Housing Stability Do you currently live in a prison or have no steady place to sleep at night? (Adult - for ages 18 years and over): Not on file Do you think you are at risk of becoming homeless? (Adult - for ages 18 years and over): No Does your family worry about paying for your home or becoming homeless? (Household - for ages 0-17 years): Not on file Are you homeless or worried that you might be in the future? (Adult - for ages 18 years and over): Not on file Are you (or your family) homeless or worried that you might be in the future? 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 HIV risk factors: None FAMILY HISTORY Family History Problem Relation Name Age of Onset No Past Hx Mother Lived until 86 Mental Disorder Father "black lung", money examiner No Past Hx Son Asthma Daughter ? Other (AAA) Daughter Denies FH of AAA Family Status Relation Status Mo at age 87 old age. PR at 82yo Fa at age 76 massive PR Sis Alive Son (Not Specified) Ahsan (Not Specified) REVIEW OF SYSTEMS: The patient denies new lung, kidney, liver, skin (some skin tags and basal cell cancers removed, thyroid, bladder, problems. He is very constipated. The patient also denies acute changes in hearing or vision. Otherwise, all other systems are negative or as noted above. There were no vitals taken for this visit. The patient is a 79 year old male who is well developed and appears to be their stated age. NEUROLOGIC EXAMINATION: Mental status: Orientated to person, place, and partially to time. Off by couple days on the date. Remote memory functions are intact. Attention, concentration, language, and fund of knowledge are normal. Judgment and insight are intact. Mood and affect are flat. Cranial nerves: CN 2: Visual cano are full to confrontation in both eyes. CN 3-4, 6: Pupils are equal, round. Postsurgical pupils. Extraocular motility is intact in both eyes without nystagmus. CN 5: Facial sensation and jaw strength are normal bilaterally. CN 7: No facial muscle weakness or significant asymmetries. CN 8: Hearing is reduced bilaterally. CN 9-10: Palate is symmetric and moves normally in the midline. CN 11: Sternocleidomastoid and trapezius muscle strength are normal bilaterally. CN 12: Tongue protrudes in midline. No tongue atrophy or fasciculation. Motor: Mild generalized weakness, prominent resting tremor R>L, bradykinesia is mild and also mild cog wheeling rigidty. Sensory: mildly reduced vibration sense distally in LE. Coordination: Fyymkr-dx-sscm, and rapid alternating movements are normal bilaterally. Fine motor coordination is normal in both hands. Reflexes: Hypoactive and symmetric in the arms and legs. No pathologic reflexes. Gait/station: slow gait on a narrow base with reduced arm swing bilaterally. Arises from a chair with slight difficulty. Some difficulty with turns. Pull test is positive. Mild camptocormia. IMPRESSION: The patient has tremor dominant Parkinson's. He had difficulty tolerating immediate release Carbidopa/Levodopa due to worsening of hypotension. He may be able to tolerate slow release Carbidopa/Levodopa which has smoother serum levels and causes less BP fluctuations. RECOMMENDATIONS: I will start him on Carbidopa/Levodopa CR 25/100 BID. He may need a reduction of Amlodipine in casethere is worsening of orthostatic hypotension. RTC in 4 months. I spent approximately 40 minutes with this patient greater than half the time was spent reviewing diagnosis, physical exam, imaging, and treatment. Thank-you for letting me participate in the care of this patient. Darron Calvillo MD Neurology [address] [address] Please send copy to requesting physician, Usha Michaels MD documented in this encounter Nursing Notes * Maegan Leigh LPN - 02/28/2024 8:36 AM EDT Patient verified identity by spelling of last name and date. Chief Complaint Patient presents with Follow Up documented in this encounter Plan of Treatment Upcoming Encounters Date Type Department Care Team (Late st Contact Info) Description 03/11/2024 2:30 PM EST [facility] Visit [facility], [address] [place] [address] Aron Schmid, GUS [address] [place] [address] 03/18/2024 2:30 PM EST Office Visit Cardiology, [facility] [address] [place] [address] Marcia Collins CRNP [address] [facility] [address] 04/09/2024 11:30 AM EST Scheduled Telephone [facility], [facility] [address] [place] [facility] [place] [address] Teresa Johnson, RDN [address] [place] [facility] [place] [address] 05/27/2024 6:20 PM EST Office Visit Family [facility] [address] [place] [id number] Usha Michaels MD [address] [place] [address] 06/26/2024 1:40 PM EST Office Visit Neurology [facility] [address] [place] [address] Darron Calvillo MD [address] [place] [address] 10/24/2024 2:00 PM EDT Office Visit Dermatology [facility] [address] [place] [address] Mitchell Mack MD [address] [place] [address] Scheduled Procedures Name Priority Associated Diagnoses Date/Ti [...] manifestations (HCC)- Primary documented in this encounter Advance Directives * Full Code (Latest Code Status on File) Date Activated Date Inactivated Comments 10/20/2023 10:03 AM 10/26/2023 1:07 AM This order reflects the patients wishes and were consensually agreed upon. Question Answer Comments Discussion of Advance Directives occurred with: Patient Care Teams Information Systems Operator Relationship Specialty Start Date End Date Usha Michaels MD [address] [place] [address] PCP - General Family Medicine 03/05/17 documented as of this encounter
--- OUTSIDE RECORDS SUMMARY | 2024-03-26 07:11 | External Medical Summary | Summary of Care ---
Author Name Unknown Organization [facility] Address [address] [facility] [address] Phone [phone] Care Team Providers Care Transportation Manager Name Role Phone Kaz Robledo MD Primary Care Provider +1- [phone] Reason for Visit * Reason Onset Date Comments [facility]: Maintenance 02/20/2024 Encounter Details Date Type Department Care Team (Late st Contact Info) Description 02/20/2024 Telephone [facility], [facility] [address] [place] [address] Aron Schmid, RN [address] [place] [address] [facility]: Maintenance Allergies Active Allergy Reactions Criticality Noted Date Comments Atorvastatin Muscle pain 12/11/2016 Bee Stings 02/21/1999 Hives,intense itching,edema Gabapentin 10/02/2023 "Couldn't handle it" documented as of this encounter (statuses as of 02/20/2024) Medications Medication Sig Dispensed Refills Start Date [...] BEDTIME for sleep 60 Tablet 02/12/2024 Active documented as of this encounter (statuses as of 02/20/2024) Active Problems Problem Noted Date Diagnosed Date Carotid stenosis, asymptomatic, right 12/19/2023 Personal history of ID (myocardial infarction) 0 10/20/2023 Overview: 10/20/23 Parkinson's [...] as of this encounter (statuses as of 02/20/2024) Resolved Problems Problem Noted Date Diagnosed Date [...] disorder 02/15/2012 09/03/2017 Genetic Sleep Disorder Resea [facility] Other*[id number] 06/26/2011 12/08/2015 EXAMINATION OF PARTICIPANT I N CLINICAL TRIAL-Genomics 06/04/2009 08/20/2009 Overview: Renamed Per Clinical Trials Billing Project. Study Titile: Genomic Markers for Patients with Cardiovascular Disease Project #[id number] PI: Radha Yepez MD Please call [phone] with study related questions GENOMICS CARDIO RESEARCH OTHER*[id number] 06/04/2009 06/13/2016 Overview: Renamed Per Clinical Trials Billing Project. Study Titile: Genomic Markers for Patients with Cardiovascular Disease Project #[id number] PI: Radha Yepez MD Please call [phone] with study related questions Benign neoplasm of [...] as of this encounter (statuses as of 02/20/2024) Immunizations Name Administration Dates Next Due COVID-19 [...] encounter Miscellaneous Notes * Telephone Encounter - Aron Schmid RN - 02/20/2024 12:04 PM EDT Please discharge the [facility] from [facility] Device(s)/IVR to be discontinued: 02/20/24 due to pt having severe anxiety regarding results, and pt tremoring- unable to determine accuracy of results. Thank you. documented in this encounter Plan of Treatment Upcoming Encounters Date Type Department Care Team (Late st Contact Info) Description 02/27/2024 2:30 PM EDT Scheduled Telephone [facility], [facility] [address] [facility] [place] [address] Teresa Johnson RDN [address] [facility] [place] [address] 02/28/2024 8:40 AM EDT Office Visit Neurology [facility] [address] [place] [address] Darron Calvillo MD [address] [place], [place] [id number] 03/11/2024 2:30 PM EST Home Visit [facility], [facility] [address] [facility] [place] [address] Aron Schmid, RN [address] [facility] [place] [address] 03/18/2024 2:30 PM EST Office Visit Cardiology, [facility] [address] [facility] [place] [address] Marcia Collins CRNP [address] [facility] [place] [address] 05/27/2024 6:20 PM EST Office Visit Family [facility] [address] [place] [address] Kaz Robledo MD [address] [place] [address] 10/24/2024 2:00 PM EDT Office Visit [facility] [address] [place] [address] Mitchell Mack MD [address] [facility] [place] [address] Scheduled Procedures Name Priority Associated Diagnoses Date/Ti [...] ASSESSMENT COMPLETED IN PAST YEAR FOR COPD 02/18/2025 02/19/2024 Albumin/Creatinine Ratio 07/17/2026 07/18/2023, 09/05 DTap/Tdap Vaccines [...] Advance Directives occurred with: Patient Care Teams Transportation Manager Relationship Specialty Start Date End Date Kaz Robledo MD [address] [place] [address] PCP - General Family Medicine 03/05/17 documented as of this encounter
--- OUTSIDE RECORDS SUMMARY | 2024-03-26 07:11 | External Medical Summary | Summary of Care ---
Author Name Unknown Organization [facility] Address [address] [facility] [place] [address] Phone [phone] Care Team Providers Care Apigee Developer Name Role Phone Kaz Robledo MD Primary Care Provider +1- [phone] Encounter Details Date Type Department Care Team (Late st Contact Info) Description 02/19/2024 2:30 PM EDT [facility] [address] [place] [address] Aron Schmid, RN [address] [place] [address] Allergies Active Allergy Reactions Criticality Noted Date Comments Atorvastatin Muscle pain 12/11/2016 Bee Stings 02/21/1999 Hives,intense itching,edema Gabapentin 10/02/2023 "Couldn't handle it" documented as of this encounter (statuses as of 02/19/2024) Medications Medication Sig Dispensed Refills Start Date [...] as of this encounter (statuses as of 02/19/2024) Active Problems Problem Noted Date Diagnosed Date Carotid stenosis, asymptomatic, right 12/19/2023 Personal history of ME (myocardial infarction) 0 10/20/2023 Overview: 10/20/23 Parkinson's [...] as of this encounter (statuses as of 02/19/2024) Resolved Problems Problem Noted Date Diagnosed Date [...] Sleep Disorder Resea [facility] Other*[id number] 06/26/2011 12/08/2015 EXAMINATION OF PARTICIPANT I N CLINICAL TRIAL-Genomics 06/04/2009 08/20/2009 Overview: Renamed Per Clinical Trials Billing Project. Study Titile: Genomic Markers for Patients with Cardiovascular Disease Project #[id number] PI: Radha Yepez MD Please call [phone] with study related questions GENOMICS CARDIO RESEARCH OTHER*[id number] 06/04/2009 06/13/2016 Overview: Renamed Per Clinical Trials Billing Project. Study Titile: Genomic Markers for Patients with Cardiovascular Disease Project #[id number] PI: Radha Yepez MD Please call [phone] with study related questions Benign neoplasm of [...] as of this encounter (statuses as of 02/19/2024) Immunizations Name Administration Dates Next Due COVID-19 mRNA, LNP-s, No Pre serve, 2-Dose Series (Moderna) 07/02/2020,06/03/2020 COVID-19, mRNA, LNP-s, PF, B ooster, 100mcg/0.5mg (Moderna) 10/06/2021,03/02/2021 Covid-19, Mrna, Lnp-s, Pf, B ivalent, 30 Mcg, IM, 12 yrs and above (ARX) 02/15/2022 H1N1 2009 Influenza, IM 05/10/2009 Pneumococcal [...] Sign Reading Time Taken Comments Blood Pressure 128/76 02/19/2024 3:39 PM EDT Pulse 64 02/19/2024 3:39 PM EDT Temperature 37 C (98.6 F) 02/19/2024 3:39 PM EDT Respiratory Rate 20 02/19/2024 3:39 PM EDT Oxygen Saturation 96% 02/19/2024 3:39 PM EDT Inhaled Oxygen Concentration - - Weight - - Height - - Body Mass Index - - documented in this encounter Functional Status Functional [...] as of this encounter Progress Notes * Aron Schmid, RN - 02/19/2024 3:07 PM EDT Current Concerns: Situation: Pt seen today by [facility] third loader for routine follow-up visit. Background: PMH includes: PVD, HTN, Carotid stenosis, COPD, Parkinson's disease, Hx NSTEMI on 10/20/23 Assessment: This RN entered pt home to find pt tearful, raising voice, stating that he "just wants to be done" Pt daughter Tiffanie also tearful and upset Tiffanie reports pt wants to be "done with life" Pt denies suicidal ideation, denies plan to harm self Pt reports he is "very frustrated" Pt and daughter Tiffanie arguing with one another Pt: Upset because daughter is working and living 1.5 hrs away and working on weekends Tiffanie: Reports she would like pt to go to a facility, like his , as she cannot provide the medical assistance and 24/7 supervision that pt wants her to Pt: Upset that Tiffanie does not spend as much time with him as he would like, does not visit pt as much as pt would like Pt and Tiffanie: Both stating pt medical condition has left them to both feel that pt should not be home alone without supervision/assistance This RN: Discussed options, continue with current care regimen, in home private [facility] , hospice if pt is not wanting to continue with medical care Pt: Refuses all options, just wants daughter to be available at all times and provide assistance and care Tiffanie: States that is not an option, cannot quit job, and does not want to be pt 24/7 caregiver/supervision Pt: Feels that it is daughter's duty to give up everything to care for pt and his in this capacity Tiffanie: Reports pt wants her to be available 24/7 and living in [place] with him Pt: States he's just sick of being "sick" and daughter stating she is "only a phone call away" but being unable to get to him for hours after calling her This RN: Asks pt what circumstances have occurred that he has wanted daughter's immediate presence Pt: Unable to give answer Argument between pt and daughter continue This RN placed call to Karen Lantigua PROCESS TECH, informed pt and daughter, and placed on speaker phone- please see PROCESS TECH note Pt has stopped all Parkinson's medications Pt reports "I go to a Doctor and they put me on medicine, the medicine makes me worse, and so then I stop taking it, and I go to a different doctor and they give me a different medicine, until someone can give me a medicine that works." Discussed that there is no cure for Parkinson's Ultimately pt decided he is going to see Dr Calvillo on 02/27 and is accepting of short term placement Pt reports he needs no assistance in securing a bed as he can do this independently and has alreadydone so on prior occasions Pt reports "They already have a bed for me" Pt main concerns are cost, and leaving his home unattended Pt daughter reports pt does have finances to stay at [place] with and in past they have found [place] to be $8/hr, and private [facility] $25/hr with 30 hr/wk minimum Pt does have a home security system and daughter reports that she is willing to check in on home multiple times per week if pt desires Overall pt reports no acute concerns with his medical status Pt reports feeling "sick" and "horrible" upon awakening and then multiple times throughout day Pt refuses to describe what is mean by "sick" however reports this is not new finding Pt continues to have anxiety Pt names stressors as "my and my daughter" When asked how pt is coping with stress, reports he is not This RN listened and offered coping strategies Pt reports his anxiety is worsened by his own BP, SpO2 readings Message sent to Jose F Issa PA-C regarding risk/benefit of keeping [facility] BP and SpO2 in home Pt reports his shaking and "sickness" is greatly worsened after Recora Pt states he has made Cardiac Rehab staff aware Pt denies wanting to stop Recora Physical Exam: Physical Exam Cardiovascular: Rate and Rhythm: Normal rate and regular rhythm. Pulmonary: Effort: Pulmonary effort is normal. Breath sounds: Normal breath sounds. Abdominal: General: Bowel sounds are normal. Palpations: Abdomen is soft. Skin: General: Skin is warm and dry. Capillary Refill: Capillary refill takes 2 to 3 seconds. Neurological: General: No focal deficit present. Mental Status: He is alert. Mental status is at baseline. Psychiatric: Mood and Affect: Affect is tearful. Behavior: Behavior is agitated. Review of Systems: Review of Systems Constitutional: Positive for fatigue. HENT: Negative. Respiratory: Positive for shortness of breath (on exertion at baseline). Cardiovascular: Positive for leg swelling (Trace to BLE). Negative for chest pain. Gastrointestinal: Negative. Genitourinary: Negative. Musculoskeletal: Positive for gait problem. Skin: Negative. Neurological: Positive for tremors and weakness. Psychiatric/Behavioral: Positive for agitation. Negative for self-injury and suicidal ideas. The patient is nervous/anxious. Care Plan Goal Progress: Patient will maintain manageable anxiety level. (Not Progressing) Start: 01/22/24 Expected End: 03/06/24 Pt will report decrease in physical symptoms of stress. (Not Progressing) Start: 01/22/24 Expected End: 03/06/24 Orders Placed: No orders of the defined types were placed in this encounter. Care Gaps: Care Gaps Care gaps closed this contact:: Education (02/19/241739) Type of education: Clinical/disease (02/19/241739) documented in this encounter Plan of Treatment Upcoming Encounters Date Type Department Care Team (Late st Contact Info) Description 02/27/2024 2:30 PM EDT Scheduled Telephone [facility], [facility] [address] [facility] [place] [address] Teresa Johnson RDN [address] [facility] [place] [address] 02/28/2024 8:40 AM EDT Office Visit Neurology [facility] Mar[facility] [place] [address] [place] [address] Darron Calvillo MD [address] [facility] [place] [address] 03/11/2024 2:30 PM EST [facility] Visit [facility], [facility] [address] [facility] [place] [address] Aron Schmid, GUS [address] [place] [address] 03/18/2024 2:30 PM EST Office Visit Cardiology, [facility] [address] [place] [address] Marcia Collins CRNP [address] [place] [address] 05/27/2024 6:20 PM EST Office Visit Family [facility] [address] [place] [id number] Kaz Robledo MD [address] [place] [address] 10/24/2024 2:00 PM EDT Office Visit Dermatology [facility] [address] [place] [address] Mitchell Mack MD [address] [place] [address] Scheduled Procedures Name Priority Associated Diagnoses Date/Ti [...] Advance Directives occurred with: Patient Care Teams Apigee Developer Relationship Specialty Start Date End Date Kaz Robledo MD [address] [place] [place] [address] PCP - General Family Medicine 03/05/17 documented as of this encounter
--- OUTSIDE RECORDS SUMMARY | 2024-03-26 07:11 | External Medical Summary | Summary of Care ---
Author Name Unknown Organization [facility] Address [address] [place] [address] Phone [phone] Care Team Providers Care Brush Hand Name Role Phone Kaz Robledo MD Primary Care Provider +1- [phone] Reason for Visit * Reason Onset Date Comments Electronic Development Technician Documentation 02/19/2024 Encounter Details Date Type Department Care Team (Late st Contact Info) Description 02/19/2024 4:00 PM EDT Scheduled Telephone [facility], [facility] [address] [facility] [place] [address] [facility] [address] [facility] [address] Allergies Active Allergy Reactions Criticality Noted Date [...] history of [place] (myocardial infarction) 0 10/20/2023 Overview: 10/20/23 Parkinson's [...] 09/03/2017 Genetic Sleep Disorder Resea [facility] Other*[id number] 06/26/2011 12/08/2015 EXAMINATION OF PARTICIPANT I N CLINICAL TRIAL-Genomics 06/04/2009 08/20/2009 Overview: Renamed Per Clinical Trials Billing Project. Study Titile: Genomic Markers for Patients with Cardiovascular Disease Project #[id number] PI: Radha Yepez MD Please call [phone] with study related questions GENOMICS CARDIO RESEARCH OTHER*[id number] 06/04/2009 06/13/2016 Overview: Renamed Per Clinical Trials Billing Project. Study Titile: Genomic Markers for Patients with Cardiovascular Disease Project #[id number] PI: Radha Yepez MD Please call [phone] with study related questions Benign neoplasm of [...] 30 Mcg, IM, 12 yrs and above (Cleo) 02/15/2022 H1N1 2009 Influenza, IM 05/10/2009 Pneumococcal [...] Miscellaneous Notes * Telephone Encounter - Karen Lantigua, MANAGER OF PMO - 02/19/2024 4:06 PM EDT Worker was consulted by Aron WEBER CM Landen and his daughter are in disagreement as to what is the best solution for Landen's need for additional medical supervision. Both parties are upset and argumentative. Chart was reviewed. Worker was able to intervene with options for consideration. Landen shared that he only wants to be well and presently is on no medications for his parkinson's diagnosis. Landen was offered Hospice but declined at this time. He has decided to speak with a physician to address his Parkinson's. Worker addressed his need for supervision while at home. Private Duty was discussed at length and declined. The next option is to join his at [facility]. As shared, they have an open bed and he can be with his while his physician adjusts his medication. Landen is willing to consider short term placement.( 2 weeks). His concern is the out of pocket cost. Landen is aware it is more cost effective in personal care then private duty and more reliable when it comes to staffing. Financially he has the resources. Worker addressed pt's daughter's ( Tiffanie) concerns. As shared, she works 3 jobs that are remote but lives 1 1/2 hour away. It is not practical for her to be at her father's 27/11 as he is requesting her to leave her jobs and be his horse race timer caregiver. Worker provided the opportunity to have Landen and Tiffanie share their feelings /thoughts/ and frustrations. Validation and empathetic listening was engaged throughout the conversation. Worker explored coping strategies to minimize and facilitate dealing with their stressful situation. Landen's other concern is that his home would not be secured while he was at the personal care facility. They do has a security system and are in a low crime area. Aron WEBER CM will continue with her visit and consult this worker if further intervention is needed. Karen Lantigua LCSW [facility] Microbiology Instructor [facility] [phone] documented in this encounter Plan of Treatment Upcoming Encounters Date Type Department Care Team (Late st Contact Info) Description 02/27/2024 2:30 PM EDT Scheduled Telephone [facility], [facility] [address] [place] [address] Teresa Johnson RDN [address] [facility] [place] [address] 02/28/2024 8:40 AM EDT Office Visit Neurology [facility] [address] [place] [address] Darron Calvillo MD [address] [place] [address] 03/18/2024 2:30 PM EST Office Visit Cardiology, [facility] [address] [facility] [place] [address] Marcia Collins CRNP [address] [place] [address] 05/27/2024 6:20 PM EST Office Visit Family [facility] [address] [place] [address] Kaz Robledo MD [address] [place] [address] 10/24/2024 2:00 PM EDT Office Visit Dermatology [facility] [address] [facility] [place] [address] Mitchell Mack MD [address] [facility] [place] [address] Scheduled Procedures Name Priority Associated Diagnoses Date/Ti [...] Advance Directives occurred with: Patient Care Teams Brush Hand Relationship Specialty Start Date End Date Kaz Robledo MD [address] [place] [facility] [place] [address] PCP - General Family Medicine 03/05/17 documented as of this encounter
--- OUTSIDE RECORDS SUMMARY | 2024-03-26 07:11 | External Medical Summary | Summary of Care ---
Author Name Unknown Organization [facility] Address [address] [place] [address] Phone [phone] Care Team Providers Care Fruit Or Nut Farm Worker Name Role Phone Kaz Robledo MD Primary Care Provider +1- [phone] Reason for Visit * Reason Comments Cardiac Rehab Encounter Details Date Type Department Care Team (Late st Contact Info) Description 02/12/2024 8:00 AM EDT Telemedicine [facility], [address] [place] [address] [facility], [facility] [address] [place] [address] [place] [address] NSTEMI (non-ST elevated myocardial infarction) ([facility])* Allergies Active Allergy Reactions Criticality [...] history of [place] (myocardial infarction) 0 10/20/2023 Overview: 10/20/23 Parkinson's [...] 09/03/2017 Genetic Sleep Disorder Resea [facility] Other*[id number] 06/26/2011 12/08/2015 EXAMINATION OF PARTICIPANT I N CLINICAL TRIAL-Genomics 06/04/2009 08/20/2009 Overview: Renamed Per Clinical Trials Billing Project. Study Titile: Genomic Markers for Patients with Cardiovascular Disease Project #[id number] PI: Radha Yepez MD Please call [phone] with study related questions GENOMICS CARDIO RESEARCH OTHER*[id number] 06/04/2009 06/13/2016 Overview: Renamed Per Clinical Trials Billing Project. Study Titile: Genomic Markers for Patients with Cardiovascular Disease Project #[id number] PI: Radha Yepez MD Please call [phone] with study related questions Benign neoplasm of [...] 30 Mcg, IM, 12 yrs and above ([employer]) 02/15/2022 H1N1 2009 Influenza, IM 05/10/2009 Pneumococcal [...] as of this encounter Progress Notes * Zulma Torres EPC - 02/20/2024 8:39 AM EDT Session Encounter: Patient is participating in [facility]'s Intensive Cardiac Rehab Program in partnership with [employer] is a specialized company that specializes in providing virtual cardiac rehab services. Session #16 completed. Please refer to scan document for session details. Session type: Exercise Individual Session duration: 35 minutes documented in this encounter Plan of Treatment Upcoming Encounters Date Type Department Care Team (Late st Contact Info) Description 02/27/2024 2:30 PM EDT Scheduled Telephone [facility], [facility] [address] [facility] [place] [address] Teresa Johnson, RDN [address] [facility] [place] [address] 02/28/2024 8:40 AM EDT Office Visit Neurology [facility] [address] [place] [address] Darron Calvillo MD [address] [place] [address] 03/11/2024 2:30 PM EST [facility] Visit [facility], [facility] [address] [facility] [place] [address] Aron Schmid RN [address] [facility] [place] [address] 03/18/2024 2:30 PM EST Office Visit Cardiology, [facility] [address] [facility] [place] [address] Marcia Collins CRNP [address] [facility] [place] [address] 05/27/2024 6:20 PM EST Office Visit Family [address] [address] Kaz Robledo MD [address] [place] [address] 10/24/2024 2:00 PM EDT Office Visit Dermatology [facility] [address] [facility] [place] [address] Mitchell Mack MD [address] [facility] [place] [address] Scheduled Procedures Name Priority Associated Diagnoses Date/Ti [...] as of this encounter Visit Diagnoses Diagnosis NSTEMI (non-ST elevated myocardial infarction) (HCC)- Primary Acute myocardial infarction, subendocardial infarction, episode of care unspecified documented in this encounter Advance Directives * Full Code (Latest Code Status on File) Date Activated Date Inactivated Comments 10/20/2023 10:03 AM 10/26/2023 1:07 AM This order reflects the patients wishes and were consensually agreed upon. Question Answer Comments Discussion of Advance Directives occurred with: Patient Care Teams Fruit Or Nut Farm Worker Relationship Specialty Start Date End Date Kaz Robledo MD [address] [place] [address] PCP - General Family Medicine 03/05/17 documented as of this encounter
--- OUTSIDE RECORDS SUMMARY | 2024-03-26 07:11 | External Medical Summary | Summary of Care ---
Author Name Unknown Organization [facility] Address [address] [address] Phone [phone] Care Team Providers Care Specialty Department Supervisor Name Role Phone Kaz Robledo MD Primary Care Provider +1- [phone] Reason for Visit * Reason Onset Date Comments Medical Nutrition Therapy 02/27/2024 Encounter Details Date Type Department Care Team (Latest Contact Info) Description 02/27/2024 2:30 PM EDT Scheduled Telephone [facility], [facility] Region [address] [facility] [place] [address] Teresa Johnson, RDN [address] [facility] [address] HTN, goal below 140/90* Allergies Active Allergy Reactions Criticality Noted Date Comments Atorvastatin Muscle pain 12/11/2016 Bee Stings 02/21/1999 Hives,intense itching,edema Gabapentin 10/02/2023 "Couldn't handle it" documented as of this encounter (statuses as of 02/27/2024) Medications Medication Sig Dispensed Refills Start Date [...] as of this encounter (statuses as of 02/27/2024) Active Problems Problem Noted Date Diagnosed Date [...] as of this encounter (statuses as of 02/27/2024) Resolved Problems Problem Noted Date Diagnosed Date [...] 09/03/2017 Genetic Sleep Disorder Resea [facility] Other*[id number] 06/26/2011 12/08/2015 EXAMINATION OF PARTICIPANT I N CLINICAL TRIAL-Genomics 06/04/2009 08/20/2009 Overview: Renamed Per Clinical Trials Billing Project. Study Titile: Genomic Markers for Patients with Cardiovascular Disease Project #[id number] PI: Radha Yepez MD Please call [phone] with study related questions GENOMICS CARDIO RESEARCH OTHER*[id number] 06/04/2009 06/13/2016 Overview: Renamed Per Clinical Trials Billing Project. Study Titile: Genomic Markers for Patients with Cardiovascular Disease Project #[id number] PI: Radha Yepez MD Please call [phone] with study related questions Benign neoplasm of [...] as of this encounter (statuses as of 02/27/2024) Immunizations Name Administration Dates Next Due COVID-19 [...] encounter Miscellaneous Notes * Telephone Encounter - Teresa Johnson RDN - 02/26/2024 9:16 AM EDT NUTRITION PROGRESS NOTE - [facility] AT HOME TELEPHONIC [facility] Patient Phone Numbers: [phone] (Home Phone) Call placed to pt as follow-up from initial nutrition assessment from 01/14/24. Patient denies any issues related to diet information previously provided. Describes typical meal pattern/po intake as indicated below: Breakfast: Cheerios with milk and a fruit "usually" Snacks: nothing Lunch: Cheerios with milk and a fruit "usually" (same as breakfast) Snacks: nothing Dinner: Earle frozen chicken, black beans, corn/pasta with meat balls and sauce/boxed fish, rice, string beans Snacks: 1-2 Oreo cookies Drinks: water/sweet tea/milk/coffee Restaurant meals: once a week Alcohol: None Tobacco Use: No Currently living alone, but his Daughter will assist with care/food shopping/cooking of meals/transportation (lives 1[place] hrs away) Patient's continues to reside in an assisted living facility Patient will also do his own food shopping/prepping/cooking of meals Patient also can drive himself to the store or appts. Appetite and PO intake remain "pretty good" since last call No difficulties reported EMR notes H/O Cardiac/Lung Disease, and Prediabetes Stressed the importance of limiting/avoiding/restricting high sodium/high sugar foods for heart/lung health, and for prevention of DM or BS elevating Encouraged healthier foods/drinks to incorporate in meals/snacks and those high sodium/high sugar foods to restrict (previously sent info) Patient continues to not test BS at this time This dietitian encouraged Patient to test BS at least 1x daily before breakfast to monitor trends No food insecurity reported this call Patient denies any issues related to changes in wt. Wt Readings from Last 3 Encounters: 01/28/24 94.7 kg (208 lb 12.8 oz) 12/26/23 95 kg (209 lb 6.4 oz) 12/19/23 94.5 kg (208 lb 6.4 oz) Previous Nutrition Goals: 1) Consume 3 meals/day plus HS snack of nutritious, low sodium/lower sugar/protein rich foods with consistent carbohydrates (reiterated foods to avoid/consume/healthy options provided)--in progress 2) Consume at least 1 fruit at breakfast/lunch, and 1 vegetable at dinner (My Plate Method reviewed)--in progress 3) Test BS at least 1x daily before breakfast to monitor trends--not meeting Reinforced nutrition goals. Encouraged continued progress towards goals Follow up as scheduled. Encouraged pt to contact [facility] at [phone] for any non-emergent changes/concerns. Teresa Johnson MS, RDN, LDN Clinical Dietitian [facility] 02/26/22 documented in this encounter Plan of Treatment Upcoming Encounters Date Type Department Care Team (Late st Contact Info) Description 02/28/2024 8:40 AM EDT Office Visit Neurology [facility] [address] [place] [address] Darron Calvillo MD [address] [place] [address] 03/11/2024 2:30 PM EST Home Visit [facility], [facility] [address] [facility] [place] [address] Aron Schmid, GUS [address] [place] [address] 03/18/2024 2:30 PM EST Office Visit Cardiology, [facility] [address] [facility] [place] [address] Marcia Collins CRNP [address] [facility] [place] [address] 04/09/2024 11:30 AM EST Scheduled Telephone [facility], [facility] [address] [facility] [place] [address] Teresa Johnson RDN [address] [facility] [place] [address] 05/27/2024 6:20 PM EST Office Visit [place] [address] [address] [facility] [place] [id number] Kaz Robledo MD [address] [place] [facility] [place] [address] 10/24/2024 2:00 PM EDT Office Visit Dermatology [employer] [address] [facility] [place] [address] Mitchell Mack MD [address] [facility] [place] [address] Scheduled Procedures Name Priority Associated Diagnoses Date/Ti [...] as of this encounter Visit Diagnoses Diagnosis HTN, goal below 140/90- Primary Unspecified essential hypertension documented in this encounter Advance Directives * Full Code (Latest Code Status on File) Date Activated Date Inactivated Comments 10/20/2023 10:03 AM 10/26/2023 1:07 AM This order reflects the patients wishes and were consensually agreed upon. Question Answer Comments Discussion of Advance Directives occurred with: Patient Care Teams Specialty Department Supervisor Relationship Specialty Start Date End Date Kaz Robledo MD [address] [place] [facility] [place] [address] PCP - General Family Medicine 03/05/17 documented as of this encounter
--- OUTSIDE RECORDS SUMMARY | 2024-03-26 07:12 | External Medical Summary | Summary of Care ---
Author Name Unknown Organization [facility] Address [address] [place] [address] Phone [phone] Care Team Providers Care Card Hand Name Role Phone Usha Michaels MD Primary Care Provider +1- [phone] Reason for Visit * Reason Comments eRx-Medication Refill Encounter Details Date Type Department Care Team (Late st Contact Info) Description 02/10/[address] [facility] [address] [place] [address] Usha Michaels MD [address] [place] [address] Sleep disorder; Adjustment disorder with mixed anxiety and depressed mood Allergies Active Allergy Reactions Criticality Noted Date Comments Atorvastatin Muscle pain 12/11/2016 Bee Stings 02/21/1999 Hives,intense itching,edema Gabapentin 10/02/2023 "Couldn't handle it" documented as of this encounter (statuses as of 02/12/2024) Medications Medication Sig Dispensed Refills Start Date [...] PER EPISODE 25 Tab 5 4 Active docusate sodium (COLACE) 100 MG Capsule [...] To affected area. 45 g 3 Active Lisinopril 40 MG Oral Tablet [...] per week. 360 mL 5 4 Active amLODIPine Besylate 10 MG Oral Tablet (Norvasc) TAKE ONE TABLET BY MOUTH EVERY MORNING 90 Tablet 3 4 07/20/19 25 Active Clopidogrel Bisulfate 75 MG Oral Tablet (Plavix) Take 1 Tablet by mouth in the morning. Do not start before November 24, 2023. 90 Tablet 3 4 Active Terazosin HCl 1 MG Oral Capsule (Hytrin)Indication s:HTN, goal below 140/90 take one capsule by mouth at bedtime 90 Capsule 3 4 Active Melatonin 3 MG Oral Tablet Disintegrating Take 1 Tablet by mouth at bedtime. Active Isosorbide Mononitrate ER 30 MG Oral Tablet Extended Release 24 Hour (Imdur)Indications :Chronic coronary artery disease,Stable angina (HCC) Take 3 Tablets by mouth in the morning. 300 Tablet 3 4 Active Repatha SureClick 140 MG/ML Subcutaneous Solution Auto-injector (evolocumab) Inject 140 mg under the skin every 14 days. Remove from refrigerator 30 minutes prior to injection. 2 Each 11 4 Active clonazePAM 0.5 MG Oral Tablet (KlonoPIN)Indicati ons:Sleep disorder,Adjustmen t disorder with mixed anxiety and depressed mood TAKE 1 OR 2 TABLETS BY MOUTH AT BEDTIME for sleep 60 Tablet 4 Active clonazePAM 0.5 MG Oral Tablet (KlonoPIN)Indicati ons:Sleep disorder,Adjustmen t disorder with mixed anxiety and depressed mood TAKE 1 OR 2 TABLETS BY MOUTH AT BEDTIME for sleep 60 Tablet 4 02/12/20 24 Discontinued documented as of this encounter (statuses as of 02/12/2024) Active Problems Problem Noted Date Diagnosed Date Carotid stenosis, asymptomatic, right 12/19/2023 Personal history of [place] (myocardial infarction) 0 10/20/2023 Overview: 10/20/23 Parkinson's [...] occlusion Personal history of subdural hemorrhage 09/04/19 History of adenomatous polyp of colon 09/03/2017 [...] closely with cardiology Continues cardiac rehab via [facility] rehab program Dyslipidemia, goal LDL below 100 04/15/2009 Overview: Per Lipid Taxonomy. Hearing loss 07/09/2007 documented as of this encounter (statuses as of 02/12/2024) Resolved Problems Problem Noted Date Diagnosed Date [...] disorder 02/15/2012 09/03/2017 Genetic Sleep Disorder Resea [facility] Other*[id number] 06/26/2011 12/08/2015 EXAMINATION OF PARTICIPANT I N CLINICAL TRIAL-Genomics 06/04/2009 08/20/2009 Overview: Renamed Per Clinical Trials Billing Project. Study Titile: Genomic Markers for Patients with Cardiovascular Disease Project #[id number] PI: Radha Yepez MD Please call [phone] with study related questions GENOMICS CARDIO RESEARCH OTHER*[id number] 06/04/2009 06/13/2016 Overview: Renamed Per Clinical Trials Billing Project. Study Titile: Genomic Markers for Patients with Cardiovascular Disease Project #[id number] PI: Radha Yepez MD Please call [phone] with study related questions Benign neoplasm of [...] as of this encounter (statuses as of 02/12/2024) Immunizations Name Administration Dates Next Due COVID-19 [...] 01/22/2023 Does the household have a re lar source of income? (Household - for ages [...] Telephone Encounter - Usha Michaels MD - 02/12/2024 8:14 PM EDTSigned Prescriptions: Disp Refills clonazePAM 0.5 MG Oral Tablet (KlonoPIN) 60 Tab*0 Sig: TAKE 1 OR2 TABLETS BY MOUTH AT BEDTIME for sleepAuthorizing Provider: USHA MICHAELS * Telephone Encounter - Sabrina Landaverde [facility] - 02/12/2024 1:30 PM EDT Pending Prescriptions: Disp Refills clonazePAM 0.5 MG Oral Tablet [Pharmacy Me*60 Tab*0 Sig: TAKE 1 OR 2 TABLETS BY MOUTH AT BEDTIME for sleep * Telephone Encounter - Sabrina Landaverde [facility] - 02/12/2024 1:20 PM EDT I have reviewed the patients controlled substance dispensing history in the Prescription Drug Monitoring Program in compliance with the [facility] regulations before prescribing a controlled substance. PDMP checked on 02/12/2024. Pending Prescriptions: Disp Refills clonazePAM 0.5 MG Oral Tablet (KlonoPIN) *60 Tab*0 Sig: TAKE 1 OR 2 TABLETS BY MOUTH AT BEDTIME for sleep Last Visit: 01/28/2024 (in office), Visit date not found (telemedicine) Next Visit: 05/27/2024 Date medication was last filled: 11/29/23 Date medication is due for refill: 12/28/23 Pharmacy: [id number] Is this request for a controlled substance? Yes and Urine Drug Screen Not completed Toxicology results: No results found. However, due to the size of the patient record, not all encounters were searched.Please check Results Review for a complete set of results. Please approve if appropriate. Thank you, Sabrina Landaverde, PharmD Clinical Pharmacist [facility] ([facility]) 02/12/24 1:20 PM [phone] documented in this encounter Plan of Treatment Upcoming Encounters Date Type Department Care Team (Late st Contact Info) Description 02/17/2024 11:30 AM EDT Scheduled Telephone [facility], [facility] [address] [facility] [place] [address] Region, Nurse [facility] [address] [facility] [place] [address] 02/19/2024 2:30 PM EDT Home Visit [facility], [facility] [address] [facility] [place] [address] Aron Schmid, RN [address] [facility] [place] [address] 02/27/2024 2:30 PM EDT Scheduled Telephone [facility], [facility] [address] [facility] [place] [address] Teresa Johnson, TRAVISN [address] [facility] [place] [address] 02/28/2024 8:40 AM EDT Office Visit Neurology [facility] [place] [address] [facility] [address] Darron Calvillo MD [address] [place] [address] 03/18/2024 2:30 PM EST Office Visit Cardiology, [facility] [address] [facility] [place] [address] Marcia Collins CRNP [address] [place] [address] 05/27/2024 6:20 PM EST Office Visit Family [facility] [address] [place] [address] Usha Michaels MD [address] [place], [place] [id number] 10/24/2024 2:00 PM EDT Office Visit Dermatology [facility] [address] [place] [address] Mitchell Mack MD [address] [facility] [address] Scheduled Procedures Name Priority Associated Diagnoses Date/Ti [...] ASSESSMENT COMPLETED IN PAST YEAR FOR COPD 01/27/2025 01/28/2024 Albumin/Creatinine Ratio 07/17/2026 07/18/2023, 09/05 DTap/Tdap Vaccines [...] Advance Directives occurred with: Patient Care Teams Card Hand Relationship Specialty Start Date End Date Usha Michaels MD [address] [place] [address] PCP - General Family Medicine 03/05/17 documented as of this encounter
--- OUTSIDE RECORDS SUMMARY | 2024-03-26 07:12 | External Medical Summary | Summary of Care ---
Author Name Unknown Organization [facility] Address [address] [place] [address] Phone [phone] Care Team Providers Care Joint Yarner Name Role Phone Kaz Robledo MD Primary Care Provider +1- [phone] Reason for Visit * Reason Comments Cardiac Rehab Encounter Details Date Type Department Care Team (Late st Contact Info) Description 02/07/2024 9:00 AM EDT Telemedicine [facility], [address] [place] [address] Advanced, [facility] Cardiac Rehab [address] [place] [address] [place] [address] NSTEMI (non-ST elevated myocardial infarction) ([facility])* Allergies Active Allergy Reactions Criticality Noted Date Comments Atorvastatin Muscle pain 12/11/2016 Bee Stings 02/21/1999 Hives,intense itching,edema Gabapentin 10/02/2023 "Couldn't handle it" documented as of this encounter (statuses as of 02/14/2024) Medications Medication Sig Dispensed Refills Start Date [...] to injection. 2 Each 11 01/31/2024 Active documented as of this encounter (statuses as of 02/14/2024) Active Problems Problem Noted Date Diagnosed Date Carotid stenosis, asymptomatic, right 12/19/2023 Personal history of [place] (myocardial infarction) 0 10/20/2023 Overview: 10/20/23 Parkinson's [...] closely with cardiology Continues cardiac rehab via [facility] rehab program Dyslipidemia, goal LDL below 100 04/15/2009 Overview: Per Lipid Taxonomy. Hearing loss 07/09/2007 documented as of this encounter (statuses as of 02/14/2024) Resolved Problems Problem Noted Date Diagnosed Date [...] 09/03/2017 Genetic Sleep Disorder Resea [facility] Other*[id number] 06/26/2011 12/08/2015 EXAMINATION OF PARTICIPANT I N CLINICAL TRIAL-Genomics 06/04/2009 08/20/2009 Overview: Renamed Per Clinical Trials Billing Project. Study Titile: Genomic Markers for Patients with Cardiovascular Disease Project #[id number] PI: Radha Yepez MD Please call [phone] with study related questions GENOMICS CARDIO RESEARCH OTHER*[id number] 06/04/2009 06/13/2016 Overview: Renamed Per Clinical Trials Billing Project. Study Titile: Genomic Markers for Patients with Cardiovascular Disease Project #[id number] PI: Radha Yepez MD Please call [phone] with study related questions Benign neoplasm of [...] as of this encounter (statuses as of 02/14/2024) Immunizations Name Administration Dates Next Due COVID-19 [...] Progress Notes * Zulma Torres EPC - 02/14/2024 10:21 AM EDT Session Encounter: Patient is participating in [facility]'s Intensive Cardiac Rehab Program in partnership with [employer] is a specialized [employer] that specializes in providing virtual cardiac rehab services. Session #15 completed. Please refer to scan document for session details. Session type: Exercise Individual Session duration: 35 minutes documented in this encounter Plan of Treatment Upcoming Encounters Date Type Department Care Team (Late st Contact Info) Description 02/17/2024 11:30 AM EDT Scheduled Telephone [facility], [facility] [address] [place] [address] [facility], [facility] [address] [place] [address] 02/19/2024 2:30 PM EDT Home Visit [facility], [facility] [address] [place] [address] Aron Schmid, GUS [address] [place] [address] 02/27/2024 2:30 PM EDT Scheduled Telephone [facility], [facility] [address] [facility] [place] [address] Teresa Johnson, RDN [address] [facility] [place] [address] 02/28/2024 8:40 AM EDT Office Visit Neurology [facility] [address] [place] [address] Darron Calvillo MD [address] [place] [address] 03/18/2024 2:30 PM EST Office Visit Cardiology, [facility] [address] [facility] [place] [address] Marcia Collins CRNP [address] [facility] [place] [address] 05/27/2024 6:20 PM EST Office Visit Family [place] [address] [place] [address] Kaz [facility]ledo MD [address] [facility] [address] 10/24/2024 2:00 PM EDT Office Visit Dermatology [facility] [place] [address] [facility] [place] [address] Mitchell Mack MD [address] [facility] [place] [address] Scheduled Procedures Name Priority Associated Diagnoses Date/Ti [...] Additional history exists Zoster Vaccines Completed 06/07/2019, 100 12/2018, 02/03/2009 HPV (Gardasil) Vaccine Aged Out [...] Advance Directives occurred with: Patient Care Teams Joint Yarner Relationship Specialty Start Date End Date Kaz Robledo MD [address] [place] [address] PCP - General Family Medicine 03/05/17 documented as of this encounter
--- OUTSIDE RECORDS SUMMARY | 2024-03-26 07:12 | External Medical Summary | Summary of Care ---
Author Name Unknown Organization [facility] Address [address] [facility] [address] Phone [phone] Care Team Providers Care Cover Assembler Name Role Phone Kaz Robledo MD Primary Care Provider +1- [phone] Reason for Visit * Reason Onset Date Comments [facility]: Maintenance 02/17/2024 Encounter Details Date Type Department Care Team (Late st Contact Info) Description 02/17/2024 11:30 AM EDT Scheduled Telephone [facility], [facility] 132 [facility] [place] [address] [facility], Nurse [facility] 132 [facility] [address] Allergies Active Allergy Reactions Criticality Noted Date Comments Atorvastatin Muscle pain 12/11/2016 Bee Stings 02/21/1999 Hives,intense itching,edema Gabapentin 10/02/2023 "Couldn't handle it" documented as of this encounter (statuses as of 02/17/2024) Medications Medication Sig Dispensed Refills Start Date [...] as of this encounter (statuses as of 02/17/2024) Active Problems Problem Noted Date Diagnosed Date Carotid stenosis, asymptomatic, right 12/19/2023 Personal history of VT (myocardial infarction) 0 10/20/2023 Overview: 10/20/23 Parkinson's [...] as of this encounter (statuses as of 02/17/2024) Resolved Problems Problem Noted Date Diagnosed Date [...] Disorder [facility] Other*[id number] 06/26/2011 12/08/2015 EXAMINATION OF PARTICIPANT I N CLINICAL TRIAL-Genomics 06/04/2009 08/20/2009 Overview: Renamed Per Clinical Trials Billing Project. Study Titile: Genomic Markers for Patients with Cardiovascular Disease Project #[id number] PI: Radha Yepez MD Please call [phone] with study related questions GENOMICS CARDIO RESEARCH OTHER*[id number] 06/04/2009 06/13/2016 Overview: Renamed Per Clinical Trials Billing Project. Study Titile: Genomic Markers for Patients with Cardiovascular Disease Project #[id number] PI: Radha Yepez MD Please call [phone] with study related questions Benign neoplasm of [...] as of this encounter (statuses as of 02/17/2024) Immunizations Name Administration Dates Next Due COVID-19 mRNA, LNP-s, No Pre serve, 2-Dose Series (Moderna) 07/02/2020,06/03/2020 COVID-19, mRNA, LNP-s, PF, B ooster, 100mcg/0.5mg (Moderna) 10/06/2021,03/02/2021 Covid-19, Mrna, Lnp-s, Pf, B ivalent, 30 Mcg, IM, 12 yrs and above ([employer]) 02/15/2022 H1N1 2009 Influenza, IM 05/10/2009 Pneumococcal [...] encounter Miscellaneous Notes * Telephone Encounter - Melissa Cao RN - 02/17/2024 11:39 AM EDT Images from the original note were not included. [facility] Telephonic Nurse Follow-Up Call [facility] Subprogram: Focused Care Management (3-9 months) Follow Up Call Type: Weekend Call Patient identified by full name and date of Acute issue requiring follow-up call: Other: cold sores/mouth - valacyclovir Objective: 01/28/2024 10:51 AM 01/24/2024 11:25 AM 01/24/2024 10:59 AM 01/24/2024 10:50 AM 01/22/2024 3:13 PM VITALS ACROSS ENCOUNTERS BP 132/70 160/75 118/70 170/95 142/80 Pulse 52 60 68 56 Weight 94.7 kg BMI 29.96 BMI 29.96 kg/m2 Remote Patient Monitoring: [facility] Blood Pressure Cuff: no reading today [facility] Pulse Ox: no reading today Oxygen Needs: NO supplemental oxygen needs identified DME Needs: NO DME needs identified Medications: No medication or dose adjustments made during acute episode Subjective: Condition Status: Symptoms resolved and back to baseline Current Concerns: Valacyclovir course of treatment completed, cold sores/mouth resolved completely No new acute concerns Had not gotten [facility] readings for today at this time Aware of next [facility] HV - 02/19/24 Disposition: Issue resolved. All appropriate follow up scheduled. Future Visits Scheduled: Future Appointments-next 60 days Date/Time Provider Specialty Dept Phone 02/19/2024 2:30 PM Aron Schmid RN [facility] [phone] 02/27/2024 2:30 PM Teresa Johnson RDN [facility] [phone] 02/28/2024 8:40 AM (Arrive by 8:25 AM) Darron Calvillo MD Neurology [phone] 03/18/2024 2:30 PM (Arrive by 2:15 PM) Marcia Collins CRNP Cardiology [phone] 05/27/2024 6:20 PM (Arrive by 6:05 PM) Kaz Robledo MD Family Medicine [phone] 10/24/2024 2:00 PM (Arrive by 1:45 PM) Mitchell Mack MD Dermatology [phone] [facility] Digital Media Manager/ [place] Toll Free Number: documented in this encounter Plan of Treatment Upcoming Encounters Date Type Department Care Team (Late st Contact Info) Description 02/19/2024 2:30 PM EDT Home Visit [facility], [facility] 132 [facility] [place] [address] Aron Schmid, GUS 132 [facility] [place] [address] 02/27/2024 2:30 PM EDT Scheduled Telephone [facility], [facility] [address] [facility] [place] [address] Teresa Johnson, RDN [address] [place] [address] 02/28/2024 8:40 AM EDT Office Visit Neurology [facility] 200 [facility] [place] [address] Darron Calvillo MD [address] [place] [address] 03/18/2024 2:30 PM EST Office Visit Cardiology, [facility] 132 [facility] [place] [address] Marcia Collins CRNP [address] [facility] [place] [address] 05/27/2024 6:20 PM EST Office Visit Family Practice, [facility] [address] [place] [phone] Kaz Robledo MD [address] [place] [address] 10/24/2024 2:00 PM EDT Office Visit Dermatology [facility] 200 [facility] [place] [address] Mitchell Mack MD 200 [facility] [place] [address] Scheduled Procedures Name Priority Associated Diagnoses Date/Ti [...] Additional history exists Zoster Vaccines Completed 06/07/2019, 1012/2018, 02/03/2009 HPV (Gardasil) Vaccine Aged Out No [...] Advance Directives occurred with: Patient Care Teams Cover Assembler Relationship Specialty Start Date End Date Kaz Robledo MD [address] [place] [address] PCP - General Family Medicine 03/05/17 documented as of this encounter
--- OUTSIDE RECORDS SUMMARY | 2024-03-26 07:12 | External Medical Summary | Summary of Care ---
Author Name Unknown Organization [facility] Address [address] [place] [address] Phone [phone] Care Team Providers Care General Supervisor Name Role Phone Kaz Robledo MD Primary Care Provider +1- [phone] Reason for Visit * Reason Comments Cardiac Rehab Encounter Details Date Type Department Care Team (Late st Contact Info) Description 02/05/2024 9:00 AM EDT Telemedicine Cardiac Rehab [facility], Virtual [address] [place] [address] [place] [address] [facility], [facility] Re[facility] [address] [place] [address] [place] [id number] NSTEMI (non-ST elevated myocardial infarction) ([facility])* Allergies Active Allergy Reactions Criticality Noted [...] stenosis, asymptomatic, right 12/19/2023 Personal history of OK (myocardial infarction) 0 10/20/2023 Overview: 10/20/23 Parkinson's [...] closely with cardiology Continues cardiac rehab via [facility] rehab program Dyslipidemia, goal LDL below 100 [...] disorder 02/15/2012 09/03/2017 Genetic Sleep Disorder [facility] Other*[id number] 06/26/2011 12/08/2015 EXAMINATION OF PARTICIPANT I N CLINICAL TRIAL-Genomics 06/04/2009 08/20/2009 Overview: Renamed Per Clinical Trials Billing Project. Study Titile: Genomic Markers for Patients with Cardiovascular Disease Project #[id number] PI: Radha Yepez MD Please call [phone] with study related questions GENOMICS CARDIO RESEARCH OTHER*[id number] 06/04/2009 06/13/2016 Overview: Renamed Per Clinical Trials Billing Project. Study Titile: Genomic Markers for Patients with Cardiovascular Disease Project #[id number] PI: Radha Yepez MD Please call [phone] with study related questions Benign neoplasm of [...] Notes * Zulma Torres EPC - 02/14/2024 10:20 AM EDT Session Encounter: Patient is participating in [facility]'s Intensive Cardiac Rehab Program in partnership with [facility] is a specialized [employer] that specializes in providing virtual cardiac rehab services. Session #14 completed. Please refer to scan document for session details. Session type: Exercise Individual Session duration: 35 minutes documented in this encounter Plan of Treatment Upcoming Encounters Date Type Department Care Team (Late st Contact Info) Description 02/17/2024 11:30 AM EDT Scheduled Telephone [facility], [facility] [address] [place] [address] Region, Nurse [facility] [address] [place] [address] 02/19/2024 2:30 PM EDT Home Visit [facility], [facility] [address] [place] [address] Aron Schmid, GUS [address] [place] [address] 02/27/2024 2:30 PM EDT Scheduled Telephone [facility], [facility] [address] [facility] [place] [address] Teresa Johnson, RDN [address] [facility] [place] [address] 02/28/2024 8:40 AM EDT Office Visit Neurology [facility] 200 [place] [address] Darron Calvillo MD [address] [place] [address] 03/18/2024 2:30 PM EST Office Visit Cardiology, [facility] 132 [facility] [place] [address] Marcia Collins CRNP 132 [facility] [place] [address] 05/27/2024 6:20 PM EST Office Visit Family [place] [address] [place] [address] Kaz Robledo MD [address] [facility] [address] 10/24/2024 2:00 PM EDT Office Visit Dermatology [place] [place] 200 [facility] [place] [address] Mitchell Mack MD 200 [facility] [place] [address] Scheduled Procedures Name Priority Associated Diagnoses Date/Ti [...] Advance Directives occurred with: Patient Care Teams General Supervisor Relationship Specialty Start Date End Date Kaz Robledo MD [address] [place] [address] PCP - General Family Medicine 03/05/17 documented as of this encounter
--- OUTSIDE RECORDS SUMMARY | 2024-03-26 07:13 | External Medical Summary | Summary of Care ---
Author Name Unknown Organization [facility] Address [address] [place] [address] Phone [phone] Care Team Providers Care Product Distribution Specialist Name Role Phone Kaz Robledo MD Primary Care Provider +1- [phone] Reason for Visit * Reason Comments Hospital Follow-Up Patient is here toda y for an ED follow up.Patient was seen for heart "pressure." Encounter Details Date Type Department Care Team (Latest Contact Info) Description 01/28/2024 11:00 AM EDT Office Visit [place] [address] [place] [address] Kaz Robledo MD [address] [place] [address] Chest pain, unspecified type*; Dyslipidemia, goal LDL below 100; Prediabetes; Chronic obstructive pulmonary disease, unspecified COPD type ([facility]); Chronic coronary artery disease; HTN, goal below 140/90; Parkinson's disease, unspecified whether dyskinesia present, unspecified whether manifestations fluctuate ([facility]); Adjustment disorder with mixed anxiety and depressed mood Allergies Active Allergy Reactions Criticality Noted Date Comments Atorvastatin Muscle pain 12/11/2016 Bee Stings 02/21/1999 Hives,intense itching,edema Gabapentin 10/02/2023 "Couldn't handle it" documented as of this encounter (statuses as of 02/11/2024) Medications Medication Sig Dispensed Refills Start Date [...] 24, 2023. 90 Tablet 3 4 Active clonazePAM 0.5 MG Oral Tablet (KlonoPIN)Indicati ons:Sleep disorder,Adjustmen t disorder with mixed anxiety and depressed mood TAKE 1 OR 2 TABLETS BY MOUTH AT BEDTIME for sleep 60 Tablet 4 Active Terazosin HCl 1 MG Oral [...] prior to injection. 2 mL 3 4 02/06/20 24 Discontinued documented as of this encounter (statuses as of 02/11/2024) Active Problems Problem Noted Date Diagnosed Date Carotid stenosis, asymptomatic, right 12/19/2023 Personal history of AR (myocardial infarction) 0 10/20/2023 Overview: 10/20/23 Parkinson's [...] as of this encounter (statuses as of 02/11/2024) Resolved Problems Problem Noted Date Diagnosed Date [...] disorder 02/15/2012 09/03/2017 Genetic Sleep Disorder [facility] Other*[id number] 06/26/2011 12/08/2015 EXAMINATION OF PARTICIPANT I N CLINICAL TRIAL-Genomics 06/04/2009 08/20/2009 Overview: Renamed Per Clinical Trials Billing Project. Study Titile: Genomic Markers for Patients with Cardiovascular Disease Project #[id number] PI: Radha Yepez MD Please call [phone] with study related questions GENOMICS CARDIO RESEARCH OTHER*[id number] 06/04/2009 06/13/2016 Overview: Renamed Per Clinical Trials Billing Project. Study Titile: Genomic Markers for Patients with Cardiovascular Disease Project #[id number] PI: Radha Yepez MD Please call [phone] with study related questions Benign neoplasm of [...] as of this encounter (statuses as of 02/11/2024) Immunizations Name Administration Dates Next Due COVID-19 [...] Sign Reading Time Taken Comments Blood Pressure 132/70 01/28/2024 10:51 AM EDT Pulse 52 01/28/2024 10:51 AM EDT Temperature 36.2 C (97.1 F) 01/28/2024 1 0:51 AM EDT Respiratory Rate 16 01/28/2024 10:5 1 AM EDT Oxygen Saturation 96% 01/28/2024 10: 51 AM EDT Inhaled Oxygen Concentration - - Weight 94.7 kg (208 lb 12.8 oz) 024 10:51 AM EDT Height 177.8 cm (5' 10") 01/28/2024 10: 51 AM EDT Body Mass Index 29.96 01/28/2024 10:51 AM EDT documented in this [...] as of this encounter Progress Notes * Kaz Robledo MD - 01/28/2024 12:01 PM EDT Subjective: Landen Camacho is a 79 year old male here today for Chief Complaint Patient presents with Hospital Follow-Up Patient is here today for an ED follow up. Patient was seen for heart "pressure." Patient presents for follow-up from the emergency department. Was seen at [facility] Emergency Department on January 24, 2024. Reason for visit was chest pain. He did get relief of the pain with taking a nitroglycerin. He was noted that same day of having fluctuating blood pressures by home health nursing and was told to get to the emergency department for evaluation. He has a history of coronary artery disease which is medically managed and he is not considered a candidate for bypass. In the emergency department, serial troponin measurements were negative and EKG did not show any acute changes. He was offered admission given age and comorbidities which patient declined.He was encouraged to follow up here and with Cardiology. Patient has not had further pain. Past Medical History: Diagnosis Date Allergic disorder bee sting Basal cell cancer 11/04/2013 Benign neoplasm of colon 05/11/2008 adenomatous/repeat colonoscopy in 3 yrs Carotid stenosis, non-symptomatic Carotid stenosis, non-symptomatic left side totally obstructed CHR ISCHEMIC HRT DIS NEC 07/08/2009 total occlusion of the proximal LAD with [id number] collaterals with 50% diffuse mid RCA Depressive disorder, not elsewhere classified Dyslipidemia, goal to be determined Major depressive disorder with single episode, in full remission (HCC) 12/23/2018 Other acute sinusitis Subdural hemorrhage (HCC) Past Surgical History: Procedure Laterality Date CATARACT SURGERY,COMPLEX 03/06/12 CATARACT SURGERY,COMPLEX 04/16/12 CATHETERIZE LEFT HEART THRU SKIN 06/04/09 LEFT HEART CATH, PERCUTANEOUS performed by MARTY ROWELL at [facility] [place]ONOSCOPY 01/07 tubular adenoma -repeat [id number] COLONOSCOPY W/ BIOPSY (RECTUM) 05/11/08 repeat in 3 yrs/adenomatous COLONOSCOPY, DIAGNOSTIC (RECTUM) 09/13/2015 adenomatous polyp, diverticulosis, repeat 1 yr/COLONOSCOPY FLEXIBLE PROXIMAL DIAGNOSTIC performed by Ariel Johnson MD at ENDOSCOPY [facility] COLONOSCOPY, DIAGNOSTIC (RECTUM) 10/15/2017 adenomatous & hyperplastic polyps, diverticulosis, fair prep, repeat 1 yr/COLONOSCOPY FLEXIBLE PROXIMAL DIAGNOSTIC performed by Gema Rodas MD at ENDOSCOPY [facility] COLONOSCOPY, DIAGNOSTIC (RECTUM) 03/20/2019 adenomatous polyp, diverticulosis, fair prep, repeat 1 yr/COLONOSCOPY FLEXIBLE PROXIMAL DIAGNOSTIC performed by Gema Rodas MD at ENDOSCOPY [facility] CORONARY ANGIOGRAPHY W/LEFT HEART CATH N/A 10/22/2023 CORONARY ANGIOGRAPHY W/LEFT HEART CATH performed by Silvino Drake MD at [facility] ARTHROS[facility]/MENISCECTOMY left OTHER 02/06 perirectal abscess [...] before November 24, 2023. 90 Tablet 3 clonazePAM 0.5 MG Oral Tablet (KlonoPIN) TAKE 1 OR 2 TABLETS BY MOUTH AT BEDTIME for sleep 60 Tablet 0 Terazosin HCl 1 MG Oral Capsule (Hytrin) [...] minutes prior to injection. 2 Each 11 No current facility-administered medications for this visit. Objective: BP 132/70 | Pulse 52 | Temp 36.2 C (97.1 F) (Tympanic) | Resp 16 | Ht 1.778 m (5' 10") | Wt 94.7 kg (208 lb 12.8 oz) | SpO2 96% | BMI 29.96 kg/m | BSA 2.16 m GEN: NAD HEENT: Benign NECK: Supple with no LAD, TM, JVD CHEST: CTA B CV: RRR ABD: Soft, NT/ND, No HSM, NABS EXT: No c,c,e Assessment and Plan: Chest pain, unspecified type (Primary) -continue current treatments. Patient offered returned to Cardiology. He will continue to monitor for now. Call for new or worsening symptoms Dyslipidemia, goal LDL below 100 Prediabetes Chronic obstructive pulmonary disease, unspecified COPD type (HCC) Chronic coronary artery disease HTN, goal below 140/90 Parkinson's disease, unspecified whether dyskinesia present, unspecified whether manifestations fluctuate (HCC) Adjustment disorder with mixed anxiety and depressed mood Check-out note: They tried to cancel appt with Shantel Mc as they have an appt with Dr Calvillo. Still on list - please cancel Shantel's appt. 32 min with pt and chart review. Kaz Robledo MD . documented in this encounter Nursing Notes * Shreya Castellano MED ASSIST - 01/28/2024 11:05 AM EDT The patient has been properly identified by confirmation of name and date of . Chief Complaint Patient presents with Hospital Follow-Up Patient is here today for an ED follow up. Patient was seen for heart "pressure." documented in this encounter Plan of Treatment Upcoming Encounters Date Type Department Care Team (Late st Contact Info) Description 02/17/2024 11:30 AM EDT Scheduled Telephone [facility], [facility] [address] [place] [address] [facility], Nurse [facility] [address] [place] [address] 02/19/2024 2:30 PM EDT Home Visit [facility], [facility] [address] [place] [address] Aron Schmid, GUS [address] [place] [address] 02/27/2024 2:30 PM EDT Scheduled Telephone [facility], [facility] [address] [place] [facility] [place] [address] Teresa Johnson RDN [address] [place] [facility] [place] [address] 02/28/2024 8:40 AM EDT Office Visit Neurology [facility] 200 [place] [address] Darron Calvillo MD [address] [place] [address] 03/18/2024 2:30 PM EST Office Visit Cardiology, [facility] 132 [facility] [place] [address] Marcia Collins CRNP [facility] [address] 05/27/2024 6:20 PM EST Office Visit Family Practice, [place] [address] [place] [phone] Kaz Robledo MD [address] [place] [address] 10/24/2024 2:00 PM EDT Office Visit Dermatology [facility] [address] [place] [address] Mitchell Mack MD 200 [facility] [place] [address] Scheduled Procedures Name Priority Associated Diagnoses Date/Ti [...] as of this encounter Visit Diagnoses Diagnosis Chest pain, unspecified type- Primary Dyslipidemia, goal LDL below 100 Other and unspecified hyperlipidemia Prediabetes Other abnormal glucose Chronic obstructive pulmonary disease, unspecified COPD type (HCC) Chronic coronary artery disease Coronary atherosclerosis of unspecified type of vessel, cocopah or graft HTN, goal below 140/90 Unspecified essential hypertension Parkinson's disease, unspecified whether dyskinesia present, unspecified whether manifestations fluctuate (HCC) Adjustment disorder with mixed anxiety and depressed mood documented in this encounter Advance Directives * Full Code (Latest Code Status on File) Date Activated Date Inactivated Comments 10/20/2023 10:03 AM 10/26/2023 1:07 AM This order reflects the patients wishes and were consensually agreed upon. Question Answer Comments Discussion of Advance Directives occurred with: Patient Care Teams Product Distribution Specialist Relationship Specialty Start Date End Date Kaz Robledo MD [address] [place] [address] PCP - General Family Medicine 03/05/17 documented as of this encounter
--- OUTSIDE RECORDS SUMMARY | 2024-03-26 07:13 | External Medical Summary | Summary of Care ---
Author Name Unknown Organization [facility] Address [address] [place] [address] Phone [phone] Care Team Providers Care Fruit Grader Name Role Phone Kaz Robledo MD Primary Care Provider [phone]- [phone] Reason for Visit * Reason Onset Date Comments [facility]: Maintenance 02/10/2024 Encounter Details Date Type Department Care Team (Late st Contact Info) Description 02/10/2024 7:00 PM EDT Scheduled Telephone [facility], [facility] [address] [place] [address] [facility], Nurse [facility] [address] [place] [address] Allergies Active Allergy Reactions Criticality Noted Date Comments Atorvastatin Muscle pain 12/11/2016 Bee Stings 02/21/1999 Hives,intense itching,edema Gabapentin 10/02/2023 "Couldn't handle it" documented as of this encounter (statuses as of 02/10/2024) Medications Medication Sig Dispensed Refills Start Date [...] 24, 2023. 90 Tablet 3 11/24/2023 Active clonazePAM 0.5 MG Oral Tablet (KlonoPIN)Indication s:Sleep disorder,Adjustment disorder with mixed anxiety and depressed mood TAKE 1 OR 2 TABLETS BY MOUTH AT BEDTIME for sleep 60 Tablet 11/29/2023 Active Terazosin HCl 1 MG Oral Capsule [...] as of this encounter (statuses as of 02/10/2024) Active Problems Problem Noted Date Diagnosed Date Carotid stenosis, asymptomatic, right 12/19/2023 Personal history of [place] (myocardial infarction) 0 10/20/2023 Overview: 10/20/23 Parkinson's [...] as of this encounter (statuses as of 02/10/2024) Resolved Problems Problem Noted Date Diagnosed Date [...] 09/03/2017 Genetic Sleep Disorder Resea [facility] Other*[id number] 06/26/2011 12/08/2015 EXAMINATION OF PARTICIPANT I N CLINICAL TRIAL-Genomics 06/04/2009 08/20/2009 Overview: Renamed Per Clinical Trials Billing Project. Study Titile: Genomic Markers for Patients with Cardiovascular Disease Project #[id number] PI: Radha Yepez MD Please call [phone] with study related questions GENOMICS CARDIO RESEARCH OTHER*[id number] 06/04/2009 06/13/2016 Overview: Renamed Per Clinical Trials Billing Project. Study Titile: Genomic Markers for Patients with Cardiovascular Disease Project #[id number] PI: Radha Yepez MD Please call [phone] with study related questions Benign neoplasm of [...] as of this encounter (statuses as of 02/10/2024) Immunizations Name Administration Dates Next Due COVID-19 mRNA, LNP-s, No Pre serve, 2-Dose Series (Moderna) 07/02/2020,06/03/2020 COVID-19, mRNA, LNP-s, PF, B ooster, 100mcg/0.5mg (Moderna) 10/06/2021,03/02/2021 Covid-19, Mrna, Lnp-s, Pf, B ivalent, 30 Mcg, IM, 12 yrs and above (Audanika) 02/15/2022 H1N1 2009 Influenza, IM 05/10/2009 Pneumococcal [...] encounter Miscellaneous Notes * Telephone Encounter - Nash, Melissa Gonzalez RN - 02/10/2024 6:55 PM EDT Images from the original note were not included. [facility] Telephonic Nurse Follow-Up Call [facility] Subprogram: Focused Care Management (3-9 months) Follow Up Call Type: Weekend Call Patient identified by full name and date of Acute issue requiring follow-up call: Remote Patient Monitoring Trigger - [facility] BP - HTN Objective: 01/28/2024 10:51 AM 01/24/2024 11:25 AM 01/24/2024 10:59 AM 01/24/2024 10:50 AM 01/22/2024 3:13 PM VITALS ACROSS ENCOUNTERS BP 132/70 160/75 118/70 170/95 142/80 Pulse 52 60 68 56 Weight 94.7 kg BMI 29.96 BMI 29.96 kg/m2 Remote Patient Monitoring: [facility] Blood Pressure Cuff: see trends below [facility] Pulse Ox: see trends below Oxygen Needs: NO supplemental oxygen needs identified DME Needs: NO DME needs identified Medications: No medication or dose adjustments made during acute episode Subjective: Condition Status: [facility] trigger - BP - HTN Current Concerns: None Thinks it just read it wrong Feels fine Aware of next [facility] visit - 02/19/24 Disposition: Issue resolved. All appropriate follow up scheduled. Continued use of RPM Future Visits Scheduled: Future Appointments-next 60 days Date/Time Provider Specialty Dept Phone 02/10/2024 7:00 PM [facility], Nurse [facility] [phone] 02/17/2024 11:30 AM [facility] Nurse [facility] [phone] 02/19/2024 2:30 PM Aron Schmid RN [facility] [phone] 02/27/2024 2:30 PM Teresa Johnson RDN [facility] [phone] 02/28/2024 8:40 AM (Arrive by 8:25 AM) Darron Calvillo MD Neurology [phone] 03/18/2024 2:30 PM (Arrive by 2:15 PM) Marcia Collins CRNP Cardiology [phone] 05/27/2024 6:20 PM (Arrive by 6:05 PM) Kaz Robledo MD Family Medicine [phone] 10/24/2024 2:00 PM (Arrive by 1:45 PM) Mitchell Mack MD Dermatology [phone] Poppy Cao RN [facility] Dinkey Skinner/ [place] Toll Free Number: ; documented in this encounter Plan of Treatment Upcoming Encounters Date Type Department Care Team (Late st Contact Info) Description 02/17/2024 11:30 AM EDT Scheduled Telephone [facility], [facility] [address] [facility] [place] [address] [facility], Nurse [facility] [address] [facility] [place] [address] 02/19/2024 2:30 PM EDT Home Visit [facility], [facility] [address] [facility] [place] [address] Aron Schmid, GUS [address] [facility] [place] [address] 02/27/2024 2:30 PM EDT Scheduled Telephone [facility], [facility] [address] [facility] [place] [address] Teresa Johnson, RDN [address] [place] [facility] [place] [address] 02/28/2024 8:40 AM EDT Office Visit Neurology [facility] [address] [place] [address] Darron Calvillo MD [address] [place] [facility] [place] [address] 03/18/2024 2:30 PM EST Office Visit Cardiology, [facility] [address] [place] [address] Marcia Collins CRNP [address] [place] [address] 05/27/2024 6:20 PM EST Office Visit [facility] [address] [place] [facility] [address] Kaz Robledo MD [address] [place] [address] 10/24/2024 2:00 PM EDT Office Visit Dermatology [employer] [address] [facility] [place] [address] Mitchell Mack MD [address] [facility] [place] [address] Scheduled Procedures Name Priority Associated Diagnoses Date/Ti [...] Directives occurred with: Patient Care Teams Fruit Grader Relationship Specialty Start Date End Date Kaz Robledo MD [address] [place] [facility] [place] [address] PCP - General Family Medicine 03/05/17 documented as of this encounter
--- OUTSIDE RECORDS SUMMARY | 2024-03-26 07:13 | External Medical Summary | Summary of Care ---
Author Name Unknown Organization [facility] Address [address] [place] [address] Phone [phone] Care Team Providers Care [employer] Supervisor Name Role Phone Kaz Robledo MD Primary Care Provider +1- [phone] Reason for Visit * Reason Onset Date Comments [facility]: Maintenance 02/10/2024 Encounter Details Date Type Department Care Team (Late st Contact Info) Description 02/10/2024 Telephone [facility], [facility] [address] [facility] [place] [address] Kimber Mujica, RN [address] [place], [place] [id number] [facility]: Maintenance Allergies Active Allergy [...] stenosis, asymptomatic, right 12/19/2023 Personal history of [place] (myocardial infarction) 0 10/20/2023 Overview: 10/20/23 Parkinson's [...] disorder 02/15/2012 09/03/2017 Genetic Sleep Disorder Resea [facility] Other*[id number] 06/26/2011 12/08/2015 EXAMINATION OF PARTICIPANT I N CLINICAL TRIAL-Genomics 06/04/2009 08/20/2009 Overview: Renamed Per Clinical Trials Billing Project. Study Titile: Genomic Markers for Patients with Cardiovascular Disease Project #[id number] PI: Radha Yepez MD Please call [phone] with study related questions GENOMICS CARDIO RESEARCH OTHER*[id number] 06/04/2009 06/13/2016 Overview: Renamed Per Clinical Trials Billing Project. Study Titile: Genomic Markers for Patients with Cardiovascular Disease Project #[id number] PI: Radha Yepez MD Please call [phone] with study related questions Benign neoplasm of [...] 30 Mcg, IM, 12 yrs and above (Bfly) 02/15/2022 H1N1 2009 Influenza, IM 05/10/2009 Pneumococcal [...] encounter Miscellaneous Notes * Telephone Encounter - Kimber Mujica RN - 02/10/2024 2:45 PM EDT [facility] Telephonic Nurse Follow-Up Call [facility] Subprogram: Focused Care Management (3-9 months) Follow Up Call Type: Weekend Call Acute issue requiring follow-up call: Other: f/u call, in response to triage encounter ED [facility] for possible shingles and chest tightness Objective: 01/28/2024 10:51 AM 01/24/2024 11:25 AM 01/24/2024 10:59 AM 01/24/2024 10:50 AM 01/22/2024 3:13 PM VITALS ACROSS ENCOUNTERS BP 132/70 160/75 118/70 170/95 142/80 Pulse 52 60 68 56 Weight 94.7 kg BMI 29.96 BMI 29.96 kg/m2 Remote Patient Monitoring: NONE Oxygen Needs: NO supplemental oxygen needs identified DME Needs: NO DME needs identified Medications: New medication(s) added: valacyclovir Subjective: Condition Status: Improvement in symptoms but not at baseline Current Concerns: Yesterday was talking to his daughter about shingles This am woke up has blisters around his mouth , 4 blisters Was exposed to his who is at a personal long-term, and she has shingles Lower lip 3 places "sore to touch" 98.2 temperature Has tightness in chest - started this am 2/10, when walking down steps to kitchen Spoke to patient states he did go to [facility] was diagnosed with cold sores and given an RX of valacyclovir per pt which he started today He states chest tightness resolved. He believes it was related to his anxiety. No cold sx Offers no additional complaints He is aware to call [facility] with any additional concerns F/u call placed closer to end of antiviral course Disposition: Issue resolved. All appropriate follow up scheduled. Future Visits Scheduled: Future Appointments-next 60 days Date/Time Provider Specialty Dept Phone 02/11/2024 10:30 AM Coordinator, Tanesha Hernandez [facility] [phone] 02/19/2024 2:30 PM Aron Schmid RN [facility] [phone] 02/27/2024 2:30 PM Teresa Johnson RDN [facility] [phone] 02/28/2024 8:40 AM (Arrive by 8:25 AM) Darron Calvillo MD Neurology [phone] 03/18/2024 2:30 PM (Arrive by 2:15 PM) Marcia Collins CRNP Cardiology [phone] 05/27/2024 6:20 PM (Arrive by 6:05 PM) Kaz Robledo MD Family Medicine [phone] 10/24/2024 2:00 PM (Arrive by 1:45 PM) Mitchell Mack MD Dermatology [phone] Kimber Mujica RN documented in this encounter Plan of Treatment Upcoming Encounters Date Type Department Care Team (Late st Contact Info) Description 02/17/2024 11:30 AM EDT Scheduled Telephone [facility], [facility] [address] [facility] [place] [address] [facility], Nurse [facility] [address] [facility] [place] [address] 02/19/2024 2:30 PM EDT Home Visit [facility], [facility] [address] [facility] [place] [address] Aron Schmid, RN [address] [place] [address] 02/27/2024 2:30 PM EDT Scheduled Telephone [facility], [facility] [address] [place] [facility] [address] Teresa Johnson, RON [address] [place] [facility] [place] [address] 02/28/2024 8:40 AM EDT Office Visit Neurology [facility] [address] [facility] [address] Darron Calvillo MD [address] [place] [address] 03/18/2024 2:30 PM EST Office Visit Cardiology, [facility] [address] [facility] [place] [address] Marcia Collins CRNP [address] [facility] [place] [address] 05/27/2024 6:20 PM EST Office Visit [facility] [address] [place] [address] Kaz Robledo MD [address] [place] [address] 10/24/2024 2:00 PM EDT [facility] [address] [facility] [place] [address] Mitchell Mack MD [address] [facility] [place] [address] Scheduled Procedures Name Priority Associated Diagnoses Date/Ti [...] COPD 01/27/2025 01/28/2024 Albumin/Creatinine Ratio 07/17/2026 07/18/2023, 05/10/2022 DTap/Tdap Vaccines (3 - Td or Tdap) [...] Advance Directives occurred with: Patient Care Teams [employer] Supervisor Relationship Specialty Start Date End Date Kaz Robledo MD [address] [place] [facility] [place] [address] PCP - General Family Medicine 03/05/17 documented as of this encounter
[2024-03-26] MEDS: MULTIVITAMIN TAB PO SCH (08:19)
[2024-03-26] MEDS: ASPIRIN 81 MG ECTAB PO SCH (08:19)
[2024-03-26] MEDS: FOLIC ACID 400 MCG TAB PO SCH (08:19)
[2024-03-26] MEDS: CITALOPRAM 20 MG TAB PO SCH (08:19)
[2024-03-26] MEDS: CLOPIDOGREL BISULFATE 75 MG TAB PO SCH (08:19)
[2024-03-26] MEDS: ISOSORBIDE MONO EXTENDED REL 30 MG TABCR PO SCH (08:19)
[2024-03-26] MEDS: METOPROLOL SUCC 25MG EXT REL TAB PO SCH (08:20)
[2024-03-26] MEDS: POLYETHYLENE (MIRALAX) 17 GM PACK PO SCH (08:25)
[2024-03-26] MEDS: DOCUSATE SODIUM 100 MG CAP PO SCH (08:26)
--- NOTE | 2024-03-26 14:13 | Hospitalist Progress Note ---
Date of Service March 26, 2024 Assessment & Plan (1) Parkinson's disease: (2) Abdominal pain: (3) Fecal retention: (4) SOB (shortness of breath) on exertion: Plan Landen Camacho is a 79y/o M with PMHx significant for Parkinson's disease, dyslipidemia, prediabetes, COPD, peripheral vascular disease, CAD, HTN, left carotid artery occlusion, right carotid artery stenosis, vitamin D deficiency, generalized osteoarthritis, hearing loss, tobacco use disorder and anxiety/depression who presented to the ED for evaluation secondary to SOB/abdominal discomfort and placement concerns. Parkinson's Disease, Worsening Tremors: Patient follows with [facility] Neurology [Dr. Darron Calvillo] per outpatient records on Psychiatric. Patient has tremor dominant Parkinson's per documentation and has had difficulty tolerating immediate release Carbidopa/Levodopa due to orthostatic hypotension. He was recently prescribed Carbidopa/Levodopa CR 25/100 BID back in February of this year however he has not started this medication. Started on Carbidopa/Levodopa CR 25/100 BID as per above. Hold home amlodipine, lisinopril for now. Continue home metoprolol succinate, Imdur. Close BP monitoring. PT/OT evaluation Abdominal Pain/Discomfort, Fecal Retention: Chest/Abdomen XR --> No acute chest process, moderate colonic fecal retention w/ nonobstructive bowel gas pattern. Patient with resolution of his abdominal pain s/p BM in the ED. Continue w/ scheduled daily bowel regimen 2/2 fecal retention as per above. SOB w/ Exertion: XR w/ no acute chest process as per above. No hypoxia/leukocytosis or evidence of sepsis on admission. Biofire negative. Could be 2/2 worsening anxiety. Monitor. Other Chronic Medical Conditions: Depression/anxiety, CAD, BPH --> Can continue home medications for these specific conditions. Continue w/ clonazepam 0.5mg BID PRN for anxiety. DVT Prophylaxis: SQ Heparin Code Status: FULL CODE PCP: Kaz Robledo MD Disposition: Await PT/OT tonyal Called daughter; unable to get a hold of her. Please note the above document was generated using voice recognition software. It may contain grammatical, syntax or spelling errors. Any formal questions or concerns about the content, text or information contained within the body of this dictation should be directly addressed to the provider for clarification Admission and Anticipated Discharge Date Admission Date: March 25, 2024 Subjective Patient seen and examined at bedside. He is comfortable; not in distress He reports his abdominal discomfort has improved. No significant events overnight Evaluated by PT and OT Review of Systems Review of Systems: All systems reviewed & are unremarkable except as noted in Subjective Physical Exam Physical Exam: Constitutional: Alert oriented x 3; not in distress. Has bilateral upper extremity tremors. Respiratory: normal respiratory effort, lungs clear to auscultation, no wheeze, rales, rhonchi. Normal insp/exp effort, no accessory muscle use Cardiovascular: RRR, no murmur, no edema Vessels: no JVD or carotid bruit Chest: normal inspection of chest Abdomen: Soft, nontender. Musculoskeletal: no cyanosis or clubbing, extremities motor strength 5/5. Has bilateral resting tremors Skin: no rashes, warm and dry normal turgor Neurologic: PERRL, EOMI, accommodation nl, no face palsy, no dysarthria CN's II- XI intact bilaterally and moves all extremities Psychiatric: A+Ox3, euthymic affect Results & Data Results & Data Vital Signs (Past 12 Hours) Vital Signs Temp Pulse Pulse Resp BP Pulse Ox O2 Del Method 03/26/24 08:17 36.3 C L 53 L 18 128/73 93 Room Air 03/26/24 07:04 36.7 C 53 L 16 164/78 H 94 Room Air (1) Parkinson's disease Dyskinesia presence: unspecified whether dyskinesia Fluctuating manifestations: unspecified whether manifestations fluctuate Qualified Code(s): G20.A1 - Parkinson's disease without dyskinesia, without mention of fluctuations (2) Abdominal pain Abdominal location: unspecified location Qualified Code(s): R10.9 - Unspecified abdominal pain (3) Fecal retention Constipation type: unspecified constipation type Qualified Code(s): K59.00 - Constipation, unspecified
[2024-03-26] MEDS: INFLUENZA VACC TS2024-25(65y+)/PF (IIV3) 0.5mL Syr IM ONE (19:03)
[2024-03-26] MEDS: clonazePAM 0.5 MG TAB PO PRN (21:15)
--- NOTE | 2024-03-27 09:29 | Hospitalist Progress Note ---
Date of Service March 27, 2024 Assessment & Plan (1) Parkinson's disease: (2) Abdominal pain: (3) Fecal retention: (4) SOB (shortness of breath) on exertion: Plan Landen Camacho is a 79y/o M with PMHx significant for Parkinson's disease, dyslipidemia, prediabetes, COPD, peripheral vascular disease, CAD, HTN, left carotid artery occlusion, right carotid artery stenosis, vitamin D deficiency, generalized osteoarthritis, hearing loss, tobacco use disorder and anxiety/depression who presented to the ED for evaluation secondary to SOB/abdominal discomfort and placement concerns. Parkinson's Disease, Worsening Tremors: Patient follows with [facility] Neurology [Dr. Darron Calvillo] per outpatient records on [facility]. Patient has tremor dominant Parkinson's per documentation and has had difficulty tolerating immediate release Carbidopa/Levodopa due to orthostatic hypotension. He was recently prescribed Carbidopa/Levodopa CR 25/100 BID back in February of this year however he has not started this medication. Started on Carbidopa/Levodopa CR 25/100 BID as per above. However, patient report significant orthostatic hypotension while on the medication. Will consult neurology for further recommendation regarding his Parkinson's disease. Hold home amlodipine, lisinopril for now. Continue home metoprolol succinate, Imdur. Close BP monitoring. Will start on low-dose of lisinopril 10 mg once a day Abdominal Pain/Discomfort, Fecal Retention: Chest/Abdomen XR --> No acute chest process, moderate colonic fecal retention w/ nonobstructive bowel gas pattern. Patient with resolution of his abdominal pain s/p BM in the ED. Continue w/ scheduled daily bowel regimen 2/2 fecal retention as per above. SOB w/ Exertion: XR w/ no acute chest process as per above. No hypoxia/leukocytosis or evidence of sepsis on admission. Biofire negative. monitor Other Chronic Medical Conditions: Depression/anxiety, CAD, BPH --> Can continue home medications for these specific conditions. Continue w/ clonazepam 0.5mg BID PRN for anxiety. DVT Prophylaxis: SQ Heparin Code Status: FULL CODE PCP: Kaz Robledo MD Dispositionreferral has been sent to [facility]. Await bed placement. Awaiting neurology recommendation Please note the above document was generated using voice recognition software. It may contain grammatical, syntax or spelling errors. Any formal questions or concerns about the content, text or information contained within the body of this dictation should be directly addressed to the provider for clarification Admission and Anticipated Discharge Date Admission Date: March 25, 2024 Subjective Patient seen and examined at bedside. Comfortable; not in distress. He reports he was moving around the room comfortably this morning. After receiving Sinemet, he he had episode of orthostatic hypotension and felt dizzy. Review of Systems Review of Systems: All systems reviewed & are unremarkable except as noted in Subjective Physical Exam Physical Exam: Constitutional: Alert oriented x 3; not in distress. Has bilateral upper extremity tremors. Respiratory: normal respiratory effort, lungs clear to auscultation, no wheeze, rales, rhonchi. Normal insp/exp effort, no accessory muscle use Cardiovascular: RRR, no murmur, no edema Vessels: no JVD or carotid bruit Chest: normal inspection of chest Abdomen: Soft, nontender. Musculoskeletal: no cyanosis or clubbing, extremities motor strength 5/5. Has bilateral resting tremors Skin: no rashes, warm and dry normal turgor Neurologic: PERRL, EOMI, accommodation nl, no face palsy, no dysarthria CN's II- XI intact bilaterally and moves all extremities Psychiatric: A+Ox3, euthymic affect Results & Data Results & Data Vital Signs (Past 12 Hours) Vital Signs Temp Pulse Resp BP Pulse Ox O2 Del Method 03/27/24 07:34 37.2 C 62 17 143/89 H 93 Room Air (1) Parkinson's disease Dyskinesia presence: unspecified whether dyskinesia Fluctuating manifestations: unspecified whether manifestations fluctuate Qualified Code(s): G20.A1 - Parkinson's disease without dyskinesia, without mention of fluctuations (2) Abdominal pain Abdominal location: unspecified location Qualified Code(s): R10.9 - Unspecified abdominal pain (3) Fecal retention Constipation type: unspecified constipation type Qualified Code(s): K59.00 - Constipation, unspecified
[2024-03-27] MEDS: lisinopril 10 MG TAB PO SCH (11:21)
--- NOTE | 2024-03-27 15:16 | Neurology Consultation ---
Date of Consultation March 27, 2024 Assessment & Plan (1) Parkinson's disease: Tremor predominant Parkinson's disease in a 79M with a pMH of significant vascular disease, HTN, HLD and Parkinson's disease. He currently feels well controlled on the extended release Sinemet. There really is no dopamine sparing agent that will work well in this situation and his treatment moving forward will need to consist of managing his tremor severity and orthostatic hypotension. Plan Would continue Sinemet CR BID at current dose Telehealth Consultation Telehealth Information Telehealth Information: I performed this visit using a real-time telehealth connection between my location and the patients location ([facility]). After connecting through interactive tele-video, patient was identified by name and date of and/or wristband check.Patient (or authorized healthcare advertising sales representative) was informed that this was a telemedicine visit and it was being conducted confidentially over secure lines. My office door was closed and no one else was present in the room with me.Patient (or authorized healthcare advertising sales representative) provided consent to proceed with the visit, expressed an understanding of privacy and security of the telemedicine visit, and gave permission to have a hospital advertising sales representative in the room in order to assist with the visit and to conduct portions of the visit, as needed. I informed the patient (or authorized healthcare advertising sales representative) that I reviewed their record and presented the opportunity for them to ask any questions regarding the visit today. The patient agreed to participate. History of Present Illness Reason for Consultation: Parkinson's disease managment Attending Physician: Tyshawn Parks MD History of Present Illness Landen Camacho is a 79M with a PMH of Parkinson's disease, HLD, carotid stenosis on the right and occlusion on the left, HTN, and PVD who presented to [facility] with abdominal pain. He has a tremor dominant Parkonson's disease and has trialed sinemet but didn't tolerate it secondary to hypotension (which he has at baseline). The plan at his last visit with Dr Calvillo was to transition to slow release Sinemet. Currently he reports that his tremor has been well controlled while in the hospital and he has no other complaints. Allergies Allergy/AdvReac Type Severity Reaction Status Date / Time bee venom protein (honey bee) Allergy Severe SWELLING, Verified 03/25/24 14:10 INTENSE ITCHING, HIVES gabapentin Allergy Unknown Unknown Unverified 03/25/24 14:10 atorvastatin AdvReac Intermediate MUSCLE PAIN Verified 03/25/24 14:10 carbidopa [From Sinemet] AdvReac Intermediate Unknown/Family Unverified 03/25/24 14:10 says only Sinemet, haven't tried Sinemet CR. levodopa [From Sinemet] AdvReac Intermediate Unknown/Family Unverified 03/25/24 14:10 says only Sinemet, haven't tried Sinemet CR. Home Medications Medication Instructions Recorded Confirmed Type nitroglycerin 0.4 mg sublingual 0.4 mg sublingual DIRECTED PRN 01/17/13 03/25/24 History tablet (Nitrostat) Chest Pain #0 BTLS multivitamin 1 tab PO DAILY #0 tabs 09/20/14 03/25/24 History aspirin 81 mg tablet,delayed 81 mg PO DAILY 90 days #90 tabs 04/19/17 03/25/24 History release (Pollo Low Dose Aspirin) coenzyme Q10 400 mg capsule (Co 400 mg PO DAILY 05/15/19 03/25/24 History Q-10) docusate sodium 100 mg capsule 100 mg PO DAILY PRN Constipation 05/15/19 03/25/24 History folic acid 400 mcg tablet 400 mcg PO DAILY 05/15/19 03/25/24 History metoprolol succinate 25 mg 25 mg PO DAILY 05/15/19 03/25/24 History tablet,extended release 24 hr clonazepam 0.5 mg tablet (Klonopin) 0.5 - 1 mg PO HS PRN sleep #0 tabs 11/25/19 03/25/24 History evolocumab 420 mg/3.5 mL 420 mg subcut MONTHLY 11/25/19 03/25/24 History subcutaneous wearable injector (Repatha Pushtronex) ketoconazole 2 % shampoo 1 appln topical UD 11/25/19 03/25/24 History ketoconazole 2 % topical cream 1 appln topical UD 11/25/19 03/25/24 History cholecalciferol (vitamin D3) 25 25 mcg PO Q OTHER DAY 02/05/22 03/25/24 History mcg (1,000 unit) tablet (Vitamin D3) isosorbide mononitrate 30 mg 90 mg PO QAM 02/05/22 03/25/24 History tablet,extended release 24 hr polyethylene glycol 3350 17 gram 17 g PO DAILY PRN Constipation 02/05/22 03/25/24 History oral powder packet (Miralax) lisinopril 40 mg tablet (Zestril) 40 mg PO DAILY #30 tabs 02/08/22 03/25/24 Rx calcium carbonate 500 mg PO DAILY 04/24/22 03/25/24 History amlodipine 10 mg tablet 10 mg PO DAILY 12/14/22 03/25/24 History citalopram 20 mg tablet 20 mg PO DAILY #0 tabs 12/14/22 03/25/24 History terazosin 1 mg capsule 1 mg PO HS 12/14/22 03/25/24 History carbidopa ER 25 mg-levodopa 100 mg 1 tab PO BID 03/25/24 03/25/24 History tablet,extended release clopidogrel 75 mg tablet 75 mg PO DAILY 03/25/24 03/25/24 History melatonin 5 mg tablet 5 mg PO HS PRN Sleep 03/25/24 03/25/24 History Patient History Medical History Atrial flutter Inguinal hernia Surgical History S/P tonsillectomy Family History Other Asthma Denies family history of Hypertension Social History Smoking Status: Former smoker Tobacco Type: Cigarettes Second Hand Exposure: No; Do You Dip or Chew Tobacco: No; Tobacco Cessation Education Requested by Patient: No Hx Alcohol Use: No Hx Substance Use: No Preferred Language: Tamazight Communication Ability: Effective Matrix Bath Attendant Required: No Beliefs That Will Affect Care: None Current Living Situation: Alone Other Information That Helps Us Care for You: No Feels Safe at Home: Yes Safety Concerns: Feels Safe At This Time Assistive Devices: Cane Physical Exam NEUROLOGIC EXAMINATION: Mental Status:alert, oriented to time, place, person, normal recent memory, normal remote memory, normal attention span, normal concentration, normal language, and normal fund of knowledge Cranial Nerves: CN 2 - no visual defect on confrontation and pupils round, equal, reactive to light CN 3, 4, 6 - extra-ocular movements intact and no nystagmus CN 5 - facial sensation intact CN 7 - no facial asymmetry, decreased facial expression CN 8 - intact hearing CN 9, 10 - palate symmetric, normal gag CN 11 - good shoulder shrug CN 12 - tongue midline MOTOR: Strength was at least antigravity throughout, Pronator drift was absent, and There were no abnormal movements SENSATION: intact GAIT: deferred COORDINATION: no ataxia with finger to nose testing and heel to cancino testing REFLEXES: cannot assess over telemedicine Results & Data Vital Signs (Past 12 Hours) Vital Signs Temp Pulse Resp BP Pulse Ox O2 Del Method 03/27/24 07:34 37.2 C 62 17 143/89 H 93 Room Air Laboratory Results Most recent lab results Calcium 9.3 mg/dl (8.6-10.3) 03/26/24 05:30 Phosphorus 3.5 mg/dl (2.5-4.9) 03/26/24 05:30 Magnesium 2.3 mg/dl (1.7-2.4) 03/26/24 05:30 (1) Parkinson's disease Dyskinesia presence: unspecified whether dyskinesia Fluctuating manifestations: unspecified whether manifestations fluctuate Qualified Code(s): G20.A1 - Parkinson's disease without dyskinesia, without mention of fluctuations
[2024-03-27] MEDS: POLYETHYLENE (MIRALAX) 17 GM PACK PO SCH (15:18)
--- NOTE | 2024-03-28 09:49 | Hospitalist Progress Note ---
Date of Service March 28, 2024 Assessment & Plan (1) Parkinson's disease: (2) Abdominal pain: (3) Fecal retention: (4) SOB (shortness of breath) on exertion: Plan Landen Camacho is a 79y/o M with PMHx significant for Parkinson's disease, dyslipidemia, prediabetes, COPD, peripheral vascular disease, CAD, HTN, left carotid artery occlusion, right carotid artery stenosis, vitamin D deficiency, generalized osteoarthritis, hearing loss, tobacco use disorder and anxiety/depression who presented to the ED for evaluation secondary to SOB/abdominal discomfort and placement concerns. Parkinson's Disease, Worsening Tremors: Patient follows with [facility] [Dr. Darron Calvillo] per outpatient records on [facility]. Patient has tremor dominant Parkinson's per documentation and has had difficulty tolerating immediate release Carbidopa/Levodopa due to orthostatic hypotension. He was recently prescribed Carbidopa/Levodopa CR 25/100 BID back in February of this year however he has not started this medication. Started on Carbidopa/Levodopa CR 25/100 BID as per above. However, patient report significant orthostatic hypotension while on the medication. Neurology consulted; recommended to continue current dosing. Hold home amlodipine, lisinopril for now. Continue home metoprolol succinate, Imdur. Home dose of Imdur decreased to 30 mg once a day. Other antihypertensives stopped. Will give 1 L of LR at the rate of 125 cc/h for low blood pressure. Abdominal Pain/Discomfort, Fecal Retention: Chest/Abdomen XR --> No acute chest process, moderate colonic fecal retention w/ nonobstructive bowel gas pattern. Patient with resolution of his abdominal pain s/p BM in the ED. Continue w/ scheduled daily bowel regimen 2/2 fecal retention as per above. SOB w/ Exertion: XR w/ no acute chest process as per above. No hypoxia/leukocytosis or evidence of sepsis on admission. Biofire negative. monitor Other Chronic Medical Conditions: Depression/anxiety, CAD, BPH --> Can continue home medications for these specific conditions. Continue w/ clonazepam 0.5mg BID PRN for anxiety. DVT Prophylaxis: SQ Heparin Code Status: FULL CODE PCP: Kaz Robledo MD [facility] has been [facility] to [facility]. Await bed placement. Please note the above document was generated using voice recognition software. It may contain grammatical, syntax or spelling errors. Any formal questions or concerns about the content, text or information contained within the body of this dictation should be directly addressed to the provider for clarification Admission and Anticipated Discharge Date Admission Date: March 25, 2024 Subjective Patient seen and examined at bedside. Comfortable; not in distress. Reports some dizziness while standing up No fever or chills, no chest pain or shortness of breath Review of Systems Review of Systems: All systems reviewed & are unremarkable except as noted in Subjective Physical Exam Physical Exam: Constitutional: Alert oriented x 3; not in distress. Has bilateral upper extremity tremors. Respiratory: normal respiratory effort, lungs clear to auscultation, no wheeze, rales, rhonchi. Normal insp/exp effort, no accessory muscle use Cardiovascular: RRR, no murmur, no edema Vessels: no JVD or carotid bruit Chest: normal inspection of chest Abdomen: Soft, nontender. Musculoskeletal: no cyanosis or clubbing, extremities motor strength 5/5. Has bilateral resting tremors Skin: no rashes, warm and dry normal turgor Neurologic: PERRL, EOMI, accommodation nl, no face palsy, no dysarthria CN's II- XI intact bilaterally and moves all extremities Psychiatric: A+Ox3, euthymic affect Results & Data Results & Data Vital Signs (Past 12 Hours) Vital Signs Temp Pulse Resp BP Pulse Ox O2 Del Method 03/28/24 07:34 Room Air 03/28/24 07:08 36.6 C 57 L 16 132/81 94 Room Air (1) Parkinson's disease Dyskinesia presence: unspecified whether dyskinesia Fluctuating manifestations: unspecified whether manifestations fluctuate Qualified Code(s): G20.A1 - Parkinson's disease without dyskinesia, without mention of fluctuations (2) Abdominal pain Abdominal location: unspecified location Qualified Code(s): R10.9 - Unspecified abdominal pain (3) Fecal retention Constipation type: unspecified constipation type Qualified Code(s): K59.00 - Constipation, unspecified
[2024-03-28] MEDS: ONDANSETRON INJ 2 MG/ML 2 ML VIAL IV PRN (10:44)
[2024-03-28] MEDS: LACTATED RINGER'S 1,000 ML IV SCH (12:03)
[2024-03-29 07:12] LABS: BUN Creatinine Ratio 23.2 (10-20); Potassium 4.3 mmol/L (3.5-5.1)
[2024-03-29] MEDS: ISOSORBIDE MONO EXTENDED REL 30 MG TABCR PO SCH (09:01)
--- NOTE | 2024-03-29 10:06 | Hospitalist Progress Note ---
Date of Service March 29, 2024 Assessment & Plan (1) Parkinson's disease: (2) Abdominal pain: (3) Fecal retention: (4) SOB (shortness of breath) on exertion: Plan Landen Camacho is a 79y/o M with PMHx significant for Parkinson's disease, dyslipidemia, prediabetes, COPD, peripheral vascular disease, CAD, HTN, left carotid artery occlusion, right carotid artery stenosis, vitamin D deficiency, generalized osteoarthritis, hearing loss, tobacco use disorder and anxiety/depression who presented to the ED for evaluation secondary to SOB/abdominal discomfort and placement concerns. Parkinson's Disease, Worsening Tremors: Patient follows with [facility] [Dr. Darron Calvillo] per outpatient records on [facility]. Patient has tremor dominant Parkinson's per documentation and has had difficulty tolerating immediate release Carbidopa/Levodopa due to orthostatic hypotension. He was recently prescribed Carbidopa/Levodopa CR 25/100 BID back in February of this year however he has not started this medication. Started on Carbidopa/Levodopa CR 25/100 BID as per above. However, patient report significant orthostatic hypotension while on the medication. Neurology consulted; recommended to continue current dosing. Hold home amlodipine, lisinopril for now. Continue home metoprolol succinate, Imdur. Home dose of Imdur decreased to 30 mg once a day. Other antihypertensives stopped. given 1 LR on 03/28 Orthostatics vitals qid cristi stockings in place Abdominal Pain/Discomfort, Fecal Retention: Chest/Abdomen XR --> No acute chest process, moderate colonic fecal retention w/ nonobstructive bowel gas pattern. Patient with resolution of his abdominal pain s/p BM in the ED. Continue w/ scheduled daily bowel regimen 2/2 fecal retention as per above. SOB w/ Exertion: XR w/ no acute chest process as per above. No hypoxia/leukocytosis or evidence of sepsis on admission. Biofire negative. monitor Other Chronic Medical Conditions: Depression/anxiety, CAD, BPH --> Can continue home medications for these specific conditions. Continue w/ clonazepam 0.5mg BID PRN for anxiety. DVT Prophylaxis: SQ Heparin Code Status: FULL CODE PCP: Kaz Robledo MD [facility]ref[facility] has been [facility] to [facility]. Await bed placement. Please note the above document was generated using voice recognition software. It may contain grammatical, syntax or spelling errors. Any formal questions or concerns about the content, text or information contained within the body of this dictation should be directly addressed to the provider for clarification Admission and Anticipated Discharge Date Admission Date: March 25, 2024 Subjective Patient seen and examined at bedside. His blood pressure is overall on the lower side; however orthostatics hide are negative He is comfortable; not in distress. He denies any headache, fever, chills, chest pain or shortness of breath No significant events overnight He reports that he did not feel dizzy while standing up today. Review of Systems Review of Systems: All systems reviewed & are unremarkable except as noted in Subjective Physical Exam Physical Exam: Constitutional: Alert oriented x 3; not in distress. Has bilateral upper extremity tremors. Respiratory: normal respiratory effort, lungs clear to auscultation, no wheeze, rales, rhonchi. Normal insp/exp effort, no accessory muscle use Cardiovascular: RRR, no murmur, no edema Vessels: no JVD or carotid bruit Chest: normal inspection of chest Abdomen: Soft, nontender. Musculoskeletal: no cyanosis or clubbing, extremities motor strength 5/5. Has bilateral resting tremors Skin: no rashes, warm and dry normal turgor Neurologic: PERRL, EOMI, accommodation nl, no face palsy, no dysarthria CN's II- XI intact bilaterally and moves all extremities Psychiatric: A+Ox3, euthymic affect Results & Data Results & Data Vital Signs (Past 12 Hours) Vital Signs Temp Pulse Resp BP Pulse Ox O2 Del Method 03/29/24 08:55 58 L 03/29/24 07:35 36.6 C 158 H 18 129/76 94 Room Air (1) Parkinson's disease Dyskinesia presence: unspecified whether dyskinesia Fluctuating manifestations: unspecified whether manifestations fluctuate Qualified Code(s): G20.A1 - Parkinson's disease without dyskinesia, without mention of fluctuations (2) Abdominal pain Abdominal location: unspecified location Qualified Code(s): R10.9 - Unspecified abdominal pain (3) Fecal retention Constipation type: unspecified constipation type Qualified Code(s): K59.00 - Constipation, unspecified
[2024-03-30] MEDS: diphenhydrAMINE Capsule 25 MG CAP PO ONE (04:02)
--- NOTE | 2024-03-30 10:49 | Hospitalist Progress Note ---
Date of Service March 30, 2024 Assessment & Plan (1) Parkinson's disease: (2) Abdominal pain: (3) Fecal retention: (4) SOB (shortness of breath) on exertion: Plan Landen Camacho is a 79y/o M with PMHx significant for Parkinson's disease, dyslipidemia, prediabetes, COPD, peripheral vascular disease, CAD, HTN, left carotid artery occlusion, right carotid artery stenosis, vitamin D deficiency, generalized osteoarthritis, hearing loss, tobacco use disorder and anxiety/depression who presented to the ED for evaluation secondary to SOB/abdominal discomfort and placement concerns. Parkinson's Disease, Worsening Tremors: Patient follows with [facility] [Dr. Darron Calvillo] per outpatient records on [facility]. Patient has tremor dominant Parkinson's per documentation and has had difficulty tolerating immediate release Carbidopa/Levodopa due to orthostatic hypotension. He was recently prescribed Carbidopa/Levodopa CR 25/100 BID back in February of this year however he has not started this medication. Started on Carbidopa/Levodopa CR 25/100 BID as per above. However, patient report significant orthostatic hypotension while on the medication. Neurology consulted; recommended to continue current dosing. Stop amlodipine, lisinopril at discharge. Continue home metoprolol succinate, Imdur. Home dose of Imdur decreased to 30 mg once a day. Other antihypertensives stopped. given 1 LR on 03/28 Orthostatics vitals qid cristi stockings in place Abdominal Pain/Discomfort, Fecal Retention: Chest/Abdomen XR --> No acute chest process, moderate colonic fecal retention w/ nonobstructive bowel gas pattern. Patient with resolution of his abdominal pain s/p BM in the ED. Continue w/ scheduled daily bowel regimen 2/2 fecal retention as per above. SOB w/ Exertion: XR w/ no acute chest process as per above. No hypoxia/leukocytosis or evidence of sepsis on admission. Biofire negative. monitor Other Chronic Medical Conditions: Depression/anxiety, CAD, BPH --> Can continue home medications for these specific conditions. Continue w/ clonazepam 0.5mg BID PRN for anxiety. DVT Prophylaxis: SQ Heparin Code Status: FULL CODE PCP: Kaz Robledo MD [facility]ref[facility] has been [facility] to [facility]. Await bed placement. Please note the above document was generated using voice recognition software. It may contain grammatical, syntax or spelling errors. Any formal questions or concerns about the content, text or information contained within the body of this dictation should be directly addressed to the provider for clarification Admission and Anticipated Discharge Date Admission Date: March 25, 2024 Subjective Patient seen and examined at bedside. He reports that the dizziness has improved significantly Vital signs are stable No significant events overnight Review of Systems Review of Systems: All systems reviewed & are unremarkable except as noted in Subjective Physical Exam Physical Exam: Constitutional: Alert oriented x 3; not in distress. Has bilateral upper extremity tremors. Respiratory: normal respiratory effort, lungs clear to auscultation, no wheeze, rales, rhonchi. Normal insp/exp effort, no accessory muscle use Cardiovascular: RRR, no murmur, no edema Vessels: no JVD or carotid bruit Chest: normal inspection of chest Abdomen: Soft, nontender. Musculoskeletal: no cyanosis or clubbing, extremities motor strength 5/5. Has bilateral resting tremors Skin: no rashes, warm and dry normal turgor Neurologic: PERRL, EOMI, accommodation nl, no face palsy, no dysarthria CN's II- XI intact bilaterally and moves all extremities Psychiatric: A+Ox3, euthymic affect Results & Data Results & Data Vital Signs (Past 12 Hours) Vital Signs Temp Resp Pulse Ox O2 Del Method 03/30/24 07:48 36.6 C 14 95 Room Air (1) Parkinson's disease Dyskinesia presence: unspecified whether dyskinesia Fluctuating manifestations: unspecified whether manifestations fluctuate Qualified Code(s): G20.A1 - Parkinson's disease without dyskinesia, without mention of fluctuations (2) Abdominal pain Abdominal location: unspecified location Qualified Code(s): R10.9 - Unspecified abdominal pain (3) Fecal retention Constipation type: unspecified constipation type Qualified Code(s): K59.00 - Constipation, unspecified
[2024-03-31 06:06] LABS: Basophils # (auto) 0.09 K/uL (0.00-0.20); Basophils % (auto) 1.6 %; Eosinophils # (auto) 0.35 K/uL (0.00-0.50); Eosinophils % (auto) 6.2 %; Hematocrit (blood only) 38.1 % (42.0-52.0); Hemoglobin 12.8 g/dl (14.0-18.0); Immature Granulocytes # (auto) 0.02 K/uL (0.01-0.20); Immature Granulocytes % (auto) 0.4 %; Lymphocytes # (auto) 1.59 K/uL (1.20-3.40); Lymphocytes % (auto) 28.3 %; Mean Corpuscular Hemoglobin 30.5 pg (25.0-34.0); Mean Corpuscular Hgb Conc 33.6 g/dL (32.0-36.0); Mean Corpuscular Volume 90.9 fL (80.0-100.0); Mean Platelet Volume 10.5 fL (9.4-12.4); Monocytes # (auto) 0.63 K/uL (0.11-0.59); Monocytes % (auto) 11.2 %; Neutrophils # (auto) 2.93 K/uL (1.40-6.50); Neutrophils % (auto) 52.3 %; Platelet Count 176 K/uL (130-400); RDW Coefficient of Variation 13.1 % (11.5-14.5); RDW Standard Deviation 42.9 fL (36.4-46.3); Red Blood Count 4.19 M/uL (4.70-6.10); White Blood Count 5.61 K/ul (4.8-10.8)
[2024-03-31 06:27] LABS: BUN Creatinine Ratio 21.2 (10-20); Calcium 9.3 mg/dl (8.6-10.3); Potassium 4.2 mmol/L (3.5-5.1)
--- NOTE | 2024-03-31 08:43 | Hospitalist Progress Note ---
Date of Service March 31, 2024 Assessment & Plan (1) Parkinson's disease: (2) Abdominal pain: (3) Fecal retention: (4) SOB (shortness of breath) on exertion: Plan Landen Camacho is a 79y/o M with PMHx significant for Parkinson's disease, dyslipidemia, prediabetes, COPD, peripheral vascular disease, CAD, HTN, left carotid artery occlusion, right carotid artery stenosis, vitamin D deficiency, generalized osteoarthritis, hearing loss, tobacco use disorder and anxiety/depression who presented to the ED for evaluation secondary to SOB/abdominal discomfort and placement concerns. Parkinson's Disease, Worsening Tremors: Patient follows with [facility] [Dr. Darron Calvillo] per outpatient records on [facility]. Patient has tremor dominant Parkinson's per documentation and has had difficulty tolerating immediate release Carbidopa/Levodopa due to orthostatic hypotension. He was recently prescribed Carbidopa/Levodopa CR 25/100 BID back in February of this year however he has not started this medication. Started on Carbidopa/Levodopa CR 25/100 BID as per above. However, patient report significant orthostatic hypotension while on the medication. Neurology consulted; recommended to continue current dosing. Stop amlodipine, lisinopril at discharge. Continue metoprolol succinate, imdur decreased from 90mg once a day to 60mg once a day.. Other antihypertensives stopped. given 1 LR on 03/28 Orthostatics vitals qid cristi stockings in place Demand ischemia History of known multivessel CAD Patient reported chest discomfort in the morning of 03/31 which resolved spontaneously EKG reviewed; sinus rhythm with ST depression in inferior lateral leads High sensitive troponin 69 which down trended to 54 Cardiology consulted; recommended to increase Imdur to 60 mg once a day Abdominal Pain/Discomfort, Fecal Retention: Chest/Abdomen XR --> No acute chest process, moderate colonic fecal retention w/ nonobstructive bowel gas pattern. Patient with resolution of his abdominal pain s/p BM in the ED. Continue w/ scheduled daily bowel regimen 2/2 fecal retention as per above. SOB w/ Exertion: XR w/ no acute chest process as per above. No hypoxia/leukocytosis or evidence of sepsis on admission. Biofire negative. monitor Other Chronic Medical Conditions: Depression/anxiety, CAD, BPH --> Can continue home medications for these specific conditions. Continue w/ clonazepam 0.5mg BID PRN for anxiety. DVT Prophylaxis: SQ Heparin Code Status: FULL CODE PCP: Kaz Robledo MD [facility]. Await bed placement. Discussed with patient's daughter over the phone on 03/31 Time spent evaluating patient, direct bedside care, chart review, placing orders, interpretation of diagnostic studies, discussion with consultants, patient, and family members, as well as other required patient management activities is 50 minutes Please note the above document was generated using voice recognition software. It may contain grammatical, syntax or spelling errors. Any formal questions or concerns about the content, text or information contained within the body of this dictation should be directly addressed to the provider for clarification Admission and Anticipated Discharge Date Admission Date: March 25, 2024 Subjective Patient seen and examined at bedside. He reported chest pain today morning; EKG and high-sensitivity troponin obtained No significant events overnight Review of Systems Review of Systems: All systems reviewed & are unremarkable except as noted in Subjective Physical Exam Physical Exam: Constitutional: Alert oriented x 3; not in distress. Has bilateral upper extremity tremors. Respiratory: normal respiratory effort, lungs clear to auscultation, no wheeze, rales, rhonchi. Normal insp/exp effort, no accessory muscle use Cardiovascular: RRR, no murmur, no edema Vessels: no JVD or carotid bruit Chest: normal inspection of chest Abdomen: Soft, nontender. Musculoskeletal: no cyanosis or clubbing, extremities motor strength 5/5. Has bilateral resting tremors Skin: no rashes, warm and dry normal turgor Neurologic: PERRL, EOMI, accommodation nl, no face palsy, no dysarthria CN's II- XI intact bilaterally and moves all extremities Psychiatric: A+Ox3, euthymic affect Results & Data Results & Data Vital Signs (Past 12 Hours) Vital Signs Temp Pulse Resp BP Pulse Ox O2 Del Method 03/31/24 08:11 37.2 C 58 L 18 98/64 L 90 Room Air (1) Parkinson's disease Dyskinesia presence: unspecified whether dyskinesia Fluctuating manifestations: unspecified whether manifestations fluctuate Qualified Code(s): G20.A1 - Parkinson's disease without dyskinesia, without mention of fluctuations (2) Abdominal pain Abdominal location: unspecified location Qualified Code(s): R10.9 - Unspec ified abdominal pain (3) Fecal retention Constipation type: unspecified constipation type Qualified Code(s): K59.00 - Constipation, unspecified
[2024-03-31] MEDS: ACETAMINOPHEN 325 MG TAB PO PRN (08:46)
[2024-03-31] MEDS: NITROGLYCERIN SL 0.4 MG/TAB TAB SL STA (08:50)
[2024-03-31 09:53] LABS: Troponin I High Sensitivity 69.7 pg/ml (0-20)
--- NOTE | 2024-03-31 10:34 | Cardiology Consultation ---
Date of Consultation March 31, 2024 Assessment & Plan (1) Elevated troponin I level: (2) Chest pain: (3) CAD (coronary artery disease): (4) Fecal retention: (5) Abdominal pain: (6) Parkinson's disease: Plan Assessment: 79 year old medical complex male admitted for abdominal pain, anxiety and fecal retention, complains of chest pain with abnormal EKG. Cardiology requested Plan: Case has been discussed with Dr. Law. Further recommendations regarding plan of care as per his assessment. I spent a total of 30 minutes on the date of service in preparation, delivery, documentation of the care provided to the patient excluding any time spent in the performance of separately billed services. FREDERIC Mccray [facility] Supervising Physician Co-Signing Physician Notes Attending Staff: Patient seen and evaluated with AP Staff Concur with observations and plans 79 yo man presenting with anxiety + dyspnea + constipation (03-25-2024) Consultation - for chest pain EKG - new inferior ST depression. Multivessel CAD on cath - reported above Sigificant RCA/LAD/LCX disease Med Hx: * Parkinson's * Multivessel CAD * Hypertension * Hyperlipidemia * SAH/Subdural hematoma Plans: * Chest discomfort lasting minutes * Chest discomfort relieved spontaneously prior to SL NTG administration * Known mulitvessel CAD * Thought process re: CAD intervention explored during recent visit to [facility] - plans to optimize Medical Therapy * Continue ASA 81 mg po per day * Continue Plavix 75 min po per day * Increase Imdur to 60 mg po per day * Continue Toprol 25 mg po per day * Troponin trending down * Last LDL - 87; consider PCSK9 - patient was reluctant to inject himself. Referral is in for our Lipid Pharmacist * Start Zetia 10 mg po per day * 60 min spent addressing challenges, educating, and advancing daily plan of care. Kee Law History of Present Illness Reason for Consultation: Chest pain; abnormal EKG Requesting Physician: [facility] hospitalist Attending Physician: Tyshawn Parks MD History of Present Illness HPI: Patient is a medically complex 79 year old male with PMHx as noted below that presented to the ED on 03/25/2024 for anxiety, shortness of breath and constipation. Of note, daughter had accompanied patient to his recent cardiology visit (03/18/2024) with the undersigned and was strongly encouraged to start his prescribed parkinson's treatments as ordered by neurology. Daughter was hesitant to do so wanting 24 hour care in the home in fear of possible side effects. there was an at length discussion with daughter, a population health referral was placed and patient's PCP was notified. Cardiology has now been asked to see patient due to a concern for an abnormal EKG and complaints of chest pain. Initial troponin today 69.7/ EKG on admission was poor quality tracing and deemed indeterminate rhythm. EKG was repeated today showing NSR with LAFB, LVH, ST depression in the inferior and lateral leads. Cardiac Problems: 1. Ischemic heart disease with chronic total occlusion of the proximal LAD with [id number] collaterals and a 50% diffuse mid RCA stenosis with preserved LV systolic function. 2. History of postprandial angina resolved. 3. Carotid occlusive disease. 4. Hypertension. 5. Hyperlipidemia. 6. Erectile dysfunction. 7. Peripheral arterial disease. 8. Subarachnoid/subdural hematoma. 9. History of intolerance to atorvastatin. Allergies Allergy/AdvReac Type Severity Reaction Status Date / Time bee venom protein (honey bee) Allergy Severe SWELLING, Verified 03/25/24 14:10 INTENSE ITCHING, HIVES gabapentin Allergy Unknown Unknown Unverified 03/25/24 14:10 atorvastatin AdvReac Intermediate MUSCLE PAIN Verified 03/25/24 14:10 carbidopa [From Sinemet] AdvReac Intermediate Unknown/Family Unverified 03/25/24 14:10 says only Sinemet, haven't tried Sinemet CR. levodopa [From Sinemet] AdvReac Intermediate Unknown/Family Unverified 03/25/24 14:10 says only Sinemet, haven't tried Sinemet CR. Home Medications Medication Instructions Recorded Confirmed Type nitroglycerin 0.4 mg sublingual 0.4 mg sublingual DIRECTED PRN 01/17/13 03/25/24 History tablet (Nitrostat) Chest Pain #0 BTLS multivitamin 1 tab PO DAILY #0 tabs 09/20/14 03/25/24 History aspirin 81 mg tablet,delayed 81 mg PO DAILY 90 days #90 tabs 04/19/17 03/25/24 History release (Pollo Low Dose Aspirin) coenzyme Q10 400 mg capsule (Co 400 mg PO DAILY 05/15/19 03/25/24 History Q-10) docusate sodium 100 mg capsule 100 mg PO DAILY PRN Constipation 05/15/19 03/25/24 History folic acid 400 mcg tablet 400 mcg PO DAILY 05/15/19 03/25/24 History metoprolol succinate 25 mg 25 mg PO DAILY 05/15/19 03/25/24 History tablet,extended release 24 hr clonazepam 0.5 mg tablet (Klonopin) 0.5 - 1 mg PO HS PRN sleep #0 tabs 11/25/19 03/25/24 History evolocumab 420 mg/3.5 mL 420 mg subcut MONTHLY 11/25/19 03/25/24 History subcutaneous wearable injector (Repatha Pushtronex) ketoconazole 2 % shampoo 1 appln topical UD 11/25/19 03/25/24 History ketoconazole 2 % topical cream 1 appln topical UD 11/25/19 03/25/24 History cholecalciferol (vitamin D3) 25 25 mcg PO Q OTHER DAY 02/05/22 03/25/24 History mcg (1,000 unit) tablet (Vitamin D3) isosorbide mononitrate 30 mg 90 mg PO QAM 02/05/22 03/25/24 History tablet,extended release 24 hr polyethylene glycol 3350 17 gram 17 g PO DAILY PRN Constipation 02/05/22 03/25/24 History oral powder packet (Miralax) lisinopril 40 mg tablet (Zestril) 40 mg PO DAILY #30 tabs 02/08/22 03/25/24 Rx calcium carbonate 500 mg PO DAILY 04/24/22 03/25/24 History amlodipine 10 mg tablet 10 mg PO DAILY 12/14/22 03/25/24 History citalopram 20 mg tablet 20 mg PO DAILY #0 tabs 12/14/22 03/25/24 History terazosin 1 mg capsule 1 mg PO HS 12/14/22 03/25/24 History carbidopa ER 25 mg-levodopa 100 mg 1 tab PO BID 03/25/24 03/25/24 History tablet,extended release clopidogrel 75 mg tablet 75 mg PO DAILY 03/25/24 03/25/24 History melatonin 5 mg tablet 5 mg PO HS PRN Sleep 03/25/24 03/25/24 History Patient History Medical History Atrial flutter Inguinal hernia Surgical History S/P tonsillectomy Family History Other Asthma Denies family history of Hypertension Social History Smoking Status: Former smoker Tobacco Type: Cigarettes Second Hand Exposure: No; Do You Dip or Chew Tobacco: No; Tobacco Cessation Education Requested by Patient: No Hx Alcohol Use: No Hx Substance Use: No Preferred Language: Citizen Of [place] Communication Ability: Effective Drivers' Cash Clerk Required: No Beliefs That Will Affect Care: None Current Living Situation: Alone Other Information That Helps Us Care for You: No Feels Safe at Home: Yes Safety Concerns: Feels Safe At This Time Assistive Devices: Cane Review of Systems Review of Systems: All systems reviewed & are unremarkable except as noted in HPI & below Physical Exam Physical Exam: Overweight No elevation in JVP Amol derm S1S2 Soft 2/6 Systolic Murmur CTA B + BS No C/C/E Warm and perfused Results & Data Vital Signs (Past 12 Hours) Vital Signs Temp Pulse Resp BP Pulse Ox O2 Del Method 03/31/24 08:50 66 162/93 H 03/31/24 08:11 37.2 C 58 L 18 98/64 L 90 Room Air Laboratory Results Cardiac Enzymes 03/31/24 03/31/24 Range/Units 05:33 10:11 Troponin I High Sens 69.7 H* 54.8 H* D (0-20) pg/ml CBC 03/31/24 Range/Units 05:33 WBC 5.61 (4.8-10.8) K/ul RBC 4.19 L (4.70-6.10) M/uL Hgb 12.8 L (14.0-18.0) g/dl Hct 38.1 L (42.0-52.0) % Plt Count 176 (130-400) K/uL Neut # (Auto) 2.93 (1.40-6.50) K/uL Lymph # (Auto) 1.59 (1.20-3.40) K/uL Caroline # (Auto) 0.63 H (0.11-0.59) K/uL Eos # (Auto) 0.35 (0.00-0.50) K/uL Baso # (Auto) 0.09 (0.00-0.20) K/uL Comprehensive Metabolic Panel 03/31/24 Range/Units 05:33 Sodium 139 (136-145) mmol/L Potassium 4.2 (3.5-5.1) mmol/L Chloride 105 (98-107) mmol/L Carbon Dioxide 29 (21-32) mmol/L BUN 25 H (6-23) mg/dl Creatinine 1.18 (0.6-1.4) mg/dl Glucose 93 (70-99(Fasting)) mg/dl Calcium 9.3 (8.6-10.3) mg/dl Intake and Output 03/30/24 03/31/24 03/31/24 22:59 06:59 14:59 Intake Total 300 / 776 Balance 300 / 776 Intake: Oral 300 / 776 Other: # Unmeasured Voids 1 Diagnostic Findings Echocardiogram 05/22/23 [facility] OP The examination is adequate to evaluate the referral indication. There was normal sinus rhythm during the examination. The LV wall thickness is mildly increased (concentric). The left ventricular wall motion is normal. The qualitative LV ejection fraction is 55-59% (normal). The aortic valve has three leaflets. There is moderate focal calcification of the non coronary cusp of the aortic valve . Aortic stenosis is absent. There is no significant aortic regurgitation. The left ventricular diastolic function is mildly abnormal (grade I Cardiac cath 10/22/23: Dr. Drake [facility] NSTEMI Left main: Mildly diseased LAD: severely diseased wraps around apex and supplies distal inf wall. 100% lesion in the Mid-LD Cx: severely diseased, severely calcified 80% lesion Mid-Cx RCA: Severely diseased 100% lesion in the Prox RCA Conclusions: Severe disease involving all three vessels. Recommendations: -CVTS referral, if not surgical candidate can consider PCI to the Cx Medications Administered Current Inpatient Medications Acetaminophen (Acetaminophen 325 Mg Tab) 650 mg PO Q4H PRN PRN Reason: pain/fever Stop: 04/24/24 18:16 Last Admin: 03/31/24 08:46 Dose: 650 mg Aspirin (Aspirin 81 Mg Ectab) 81 mg PO DAILY PHUONG Stop: 04/25/24 08:59 Last Admin: 03/31/24 08:47 Dose: 81 mg Carbidopa/Levodopa (Carbidopa/Levodopa 25/100mg Ext Rel Tab) 1 tab PO BID PHUONG Stop: 04/24/24 15:59 Last Admin: 03/31/24 09:07 Dose: 1 tab Citalopram Hydrobromide (Citalopram 20 Mg Tab) 20 mg PO DAILY PHUONG Stop: 04/25/24 08:59 Last Admin: 03/31/24 09:06 Dose: 20 mg Clonazepam (Clonazepam 0.5 Mg Tab) 0.5 mg PO BID PRN PRN Reason: Anxiety/Agitation Stop: 04/24/24 15:54 Last Admin: 03/27/24 10:25 Dose: 0.5 mg Clopidogrel Bisulfate (Clopidogrel Bisulfate 75 Mg Tab) 75 mg PO DAILY PHUONG Stop: 04/25/24 08:59 Last Admin: 03/31/24 09:07 Dose: 75 mg Docusate Sodium (Docusate Sodium 100 Mg Cap) 100 mg PO DAILY PHUONG Stop: 04/25/24 08:59 Last Admin: 03/31/24 09:12 Dose: 100 mg Folic Acid (Folic Acid 400 Mcg Tab) 400 mcg PO DAILY PHUONG Stop: 04/25/24 08:59 Last Admin: 03/31/24 09:07 Dose: 400 mcg Heparin Sodium (Porcine) (Heparin Sod 5,000 Unit/0.5 Ml Vial) 5,000 units SQ Q12 PHUONG Stop: 04/24/24 20:59 Last Admin: 03/31/24 09:12 Dose: 5,000 units Isosorbide Mononitrate (Isosorbide Caroline Extended Rel 30 Mg Tabcr) 30 mg PO QAM PHUONG Stop: 04/28/24 08:59 Last Admin: 03/31/24 09:06 Dose: Not Given Magnesium Hydroxide (Magnesium Hydroxide Susp 30 Ml Udc) 30 ml PO Q6H PRN PRN Reason: Constipation Stop: 04/24/24 18:16 Metoprolol Succinate (Metoprolol Succ 25mg Ext Rel Tab) 25 mg PO DAILY [facility] Stop: 04/25/24 08:59 Last Admin: 03/31/24 09:08 Dose: 25 mg Mineral Oil (Mineral Oil Enema 133 Ml Btl) 133 ml IA DAILY PRN PRN Reason: Constipation Stop: 04/24/24 18:16 Multivitamins (Multivitamin Tab) 1 tab PO DAILY PHUONG Stop: 04/25/24 08:59 Last Admin: 03/31/24 09:07 Dose: 1 tab Ondansetron HCl (Ondansetron Inj 2 Mg/Ml 2 Ml Vial) 4 mg IV Q6H PRN PRN Reason: Nausea Stop: 04/24/24 18:16 Last Admin: 03/28/24 10:44 Dose: 4 mg Polyethylene Glycol (Polyethylene (Miralax) 17 Gm Pack) 17 gm PO DAILY PHUONG Stop: 04/25/24 08:59 Last Admin: 03/31/24 09:10 Dose: Not Given Polyethylene Glycol (Polyethylene (Miralax) 17 Gm Pack) 17 gm PO DAILY PHUONG Stop: 04/26/24 14:29 Last Admin: 03/31/24 09:09 Dose: Not Given Terazosin HCl (Terazosin Hcl 1 Mg Cap) 1 mg PO HS PHUONG Stop: 04/24/24 20:59 Last Admin: 03/30/24 20:04 Dose: 1 mg (2) Chest pain Chest pain type: unspecified Qualified Code(s): R07.9 - Chest pain, unspecified (4) Fecal retention Constipation type: unspecified constipation type Qualified Code(s): K59.00 - Constipation, unspecified (5) Abdominal pain Abdominal location: unspecified location Qualified Code(s): R10.9 - Unspecified abdominal pain (6) Parkinson's disease Dyskinesia presence: unspecified whether dyskinesia Fluctuating manifestations: unspecified whether manifestations fluctuate Qualified Code(s): G20.A1 - Parkinson's disease without dyskinesia, without mention of fluctuations
[2024-03-31] MEDS: ISOSORBIDE MONO EXTENDED REL 30 MG TABCR PO ONE (13:22)
--- NOTE | 2024-03-31 15:52 | Electrocardiogram Report ---
Test Reason : Blood Pressure : */* mmHG Vent. Rate : 63 BPM Atrial Rate : 63 BPM P-R Int : 200 ms QRS Dur : 100 ms QT Int : 416 ms P-R-T Axes : 55 -48 29 degrees QTcB Int : 425 ms Normal sinus rhythm Left anterior fascicular block Minimal voltage criteria for LVH, may be normal variant Nonspecific ST abnormality Abnormal ECG When compared with ECG of 25-Mar-2024 13:16, Sinus rhythm has replaced Atrial flutter ST now depressed in Inferior leads ST now depressed in Lateral leads Confirmed by Moshe Parham ([id number]) on 03/31/2024 3:52:10 PM Referred By: REFERRED SELF Confirmed By: Moshe Parham
[2024-04-01] MEDS: ISOSORBIDE MONO EXTENDED REL 60 MG TABCR PO SCH (07:39)
[2024-04-01] MEDS: EZETIMIBE 10 MG TAB PO SCH (07:40)
--- NOTE | 2024-04-01 08:42 | Cardiology Progress Note ---
Date of Service April 01, 2024 Assessment & Plan (1) Elevated troponin I level: (2) Chest pain: (3) CAD (coronary artery disease): (4) Fecal retention: (5) Abdominal pain: (6) Parkinson's disease: Plan Assessment: 79 year old medical complex male admitted for abdominal pain, anxiety and fecal retention, complains of chest pain with abnormal EKG. Cardiology requested Plan: Case has been discussed with Dr. Law. Further recommendations regarding plan of care as per his assessment. I spent a total of 30 minutes on the date of service in preparation, delivery, documentation of the care provided to the patient excluding any time spent in the performance of separately billed services. FREDERIC Mccray [facility] Cardiology [facility] Admission and Anticipated Discharge Date Admission Date: March 25, 2024 Supervising Physician Co-Signing Physician Notes Attending Staff: Patient seen and evaluated with AP Staff Concur with observations and plans 79 yo man presenting with anxiety + dyspnea + constipation (03-25-2024) Consultation - for chest pain EKG - new inferior ST depression. Multivessel CAD on cath - reported above Sigificant RCA/LAD/LCX disease Med Hx: * Parkinson's * Multivessel CAD * Hypertension * Hyperlipidemia * SAH/Subdural hematoma Plans: * No chest discomfort reported * Known mulitvessel CAD * Thought process re: CAD intervention explored during recent visit to [facility] - plans to optimize Medical Therapy * Continue ASA 81 mg po per day * Continue Plavix 75 min po per day * Increase Imdur to 60 mg po per day * Continue Toprol 25 mg po per day * Troponin trending down * Last LDL - 87; consider PCSK9 - patient was reluctant to inject himself. Referral is in for our Lipid Pharmacist * Start Zetia 10 mg po per day * 50 min spent addressing challenges, educating, and advancing daily plan of care. Kee Law Subjective Events Overnight: No chest pain No telemetry events Subjective: No complaints Review of Systems Review of Systems: All systems reviewed & are unremarkable except as noted in HPI & below Physical Exam Physical Exam: Overweight No elevation in JVP Amol derm S1S2 Soft 2/6 Systolic Murmur CTA B + BS No C/C/E Warm and perfused Results & Data Vital Signs (Past 12 Hours) Vital Signs Temp Pulse Pulse Pulse Resp BP BP 04/01/24 06:00 36.6 C 48 L 48 L 16 129/66 04/01/24 02:31 36.6 C 04/01/24 00:40 53 L 03/31/24 22:52 36.7 C 51 L 22 107/62 Pulse Ox O2 Del Method 04/01/24 06:00 96 Room Air 04/01/24 02:31 92 Room Air 04/01/24 00:40 03/31/24 22:52 94 Room Air Laboratory Results Cardiac Enzymes 03/31/24 03/31/24 Range/Units 05:33 10:11 Troponin I High Sens 69.7 H* 54.8 H* D (0-20) pg/ml Intake and Output 03/31/24 04/01/24 04/01/24 22:59 06:59 14:59 Output Total Balance - / - Output: # Bowel Movements Other: # Unmeasured Voids 1 Weight 87.3 kg Weight Measurement Method Built in [facility] Medications Administered Current Inpatient Medications Acetaminophen (Acetaminophen 325 Mg Tab) 650 mg PO Q4H PRN PRN Reason: pain/fever Stop: 04/24/24 18:16 Last Admin: 03/31/24 08:46 Dose: 650 mg Aspirin (Aspirin 81 Mg Ectab) 81 mg PO DAILY [facility] Stop: 04/25/24 08:59 Last Admin: 04/01/24 07:41 Dose: 81 mg Carbidopa/Levodopa (Carbidopa/Levodopa 25/100mg Ext Rel Tab) 1 tab PO BID [facility] Stop: 04/24/24 15:59 Last Admin: 04/01/24 07:40 Dose: 1 tab Citalopram Hydrobromide (Citalopram 20 Mg Tab) 20 mg PO DAILY [facility] Stop: 04/25/24 08:59 Last Admin: 04/01/24 07:41 Dose: 20 mg Clonazepam (Clonazepam 0.5 Mg Tab) 0.5 mg PO BID PRN PRN Reason: Anxiety/Agitation Stop: 04/24/24 15:54 Last Admin: 03/31/24 20:24 Dose: 0.5 mg Clopidogrel Bisulfate (Clopidogrel Bisulfate 75 Mg Tab) 75 mg PO DAILY [facility] Stop: 04/25/24 08:59 Last Admin: 04/01/24 07:41 Dose: 75 mg Docusate Sodium (Docusate Sodium 100 Mg Cap) 100 mg PO DAILY [facility] Stop: 04/25/24 08:59 Last Admin: 04/01/24 07:44 Dose: 100 mg Ezetimibe (Ezetimibe 10 Mg Tab) 10 mg PO QAM [facility] Stop: 05/01/24 08:59 Last Admin: 04/01/24 07:40 Dose: 10 mg Folic Acid (Folic Acid 400 Mcg Tab) 400 mcg PO DAILY [facility] Stop: 04/25/24 08:59 Last Admin: 04/01/24 07:40 Dose: 400 mcg Heparin Sodium (Porcine) (Heparin Sod 5,000 Unit/0.5 Ml Vial) 5,000 units SQ Q12 [facility] Stop: 04/24/24 20:59 Last Admin: 04/01/24 07:45 Dose: 5,000 units Isosorbide Mononitrate (Isosorbide [place] Extended Rel 60 Mg Tabcr) 60 mg PO QAM [facility] Stop: 05/01/24 08:59 Last Admin: 04/01/24 07:39 Dose: 60 mg Magnesium Hydroxide (Magnesium Hydroxide Susp 30 Ml Udc) 30 ml PO Q6H PRN PRN Reason: Constipation Stop: 04/24/24 18:16 Metoprolol Succinate (Metoprolol Succ 25mg Ext Rel Tab) 25 mg PO DAILY [facility] Stop: 04/25/24 08:59 Last Admin: 04/01/24 07:40 Dose: 25 mg Mineral Oil (Mineral Oil Enema 133 Ml Btl) 133 ml [place] DAILY PRN PRN Reason: Constipation Stop: 04/24/24 18:16 Multivitamins (Multivitamin Tab) 1 tab PO DAILY [facility] Stop: 04/25/24 08:59 Last Admin: 04/01/24 07:41 Dose: 1 tab Ondansetron HCl (Ondansetron Inj 2 Mg/Ml 2 Ml Vial) 4 mg IV Q6H PRN PRN Reason: Nausea Stop: 04/24/24 18:16 Last Admin: 03/28/24 10:44 Dose: 4 mg Polyethylene Glycol (Polyethylene (Miralax) 17 Gm Pack) 17 gm PO DAILY [facility] Stop: 04/25/24 08:59 Last Admin: 04/01/24 07:46 Dose: Not Given Polyethylene Glycol (Polyethylene (Miralax) 17 Gm Pack) 17 gm PO DAILY [facility] Stop: 04/26/24 14:29 Last Admin: 04/01/24 07:46 Dose: Not Given Terazosin HCl (Terazosin Hcl 1 Mg Cap) 1 mg PO HS [facility] Stop: 04/24/24 20:59 Last Admin: 03/31/24 20:23 Dose: 1 mg (2) Chest pain Chest pain type: unspecified Qualified Code(s): R07.9 - Chest pain, unspecified (4) Fecal retention Constipation type: unspecified constipation type Qualified Code(s): K59.00 - Constipation, unspecified (5) Abdominal pain Abdominal location: unspecified location Qualified Code(s): R10.9 - Unspecified abdominal pain (6) Parkinson's disease Dyskinesia presence: unspecified whether dyskinesia Fluctuating manifestations: unspecified whether manifestations fluctuate Qualified Code(s): G20.A1 - Parkinson's disease without dyskinesia, without mention of fluctuations
--- NOTE | 2024-04-01 10:54 | Hospitalist Progress Note ---
Date of Service April 01, 2024 Assessment & Plan (1) Parkinson's disease: (2) Abdominal pain: (3) Fecal retention: (4) SOB (shortness of breath) on exertion: Plan Landen Camacho is a 79y/o M with PMHx significant for Parkinson's disease, dyslipidemia, prediabetes, COPD, peripheral vascular disease, CAD, HTN, left carotid artery occlusion, right carotid artery stenosis, vitamin D deficiency, generalized osteoarthritis, hearing loss, tobacco use disorder and anxiety/depression who presented to the ED for evaluation secondary to SOB/abdominal discomfort and placement concerns. Parkinson's Disease, Worsening Tremors: Patient follows with [facility] [Dr. Darron Calvillo] per outpatient records on [facility]. Patient has tremor dominant Parkinson's per documentation and has had difficulty tolerating immediate release Carbidopa/Levodopa due to orthostatic hypotension. He was recently prescribed Carbidopa/Levodopa CR 25/100 BID back in February of this year however he has not started this medication. Started on Carbidopa/Levodopa CR 25/100 BID as per above. However, patient report significant orthostatic hypotension while on the medication. Neurology consulted; recommended to continue current dosing. Stop amlodipine, lisinopril. Continue metoprolol succinate, imdur decreased from 90mg once a day to 60mg once a day.. Other antihypertensives stopped. given 1 LR on 03/28 Orthostatics vitals bid Demand ischemia History of known multivessel CAD Patient reported chest discomfort in the morning of 03/31 which resolved spontaneously EKG reviewed; sinus rhythm with ST depression in inferior lateral leads High sensitive troponin 69 which down trended to 54 Cardiology consulted; recommended to increase Imdur to 60 mg once a day. Echocardiogram shows moderate size inferior and inferior lateral wall motion abnormality with hypokinesis Abdominal Pain/Discomfort, Fecal Retention: Chest/Abdomen XR --> No acute chest process, moderate colonic fecal retention w/ nonobstructive bowel gas pattern. Patient with resolution of his abdominal pain s/p BM in the ED. Continue w/ scheduled daily bowel regimen 2/2 fecal retention as per above. SOB w/ Exertion: XR w/ no acute chest process as per above. n. Biofire negative. monitor Other Chronic Medical Conditions: Depression/anxiety, CAD, BPH --> Can continue home medications for these specific conditions. Continue w/ clonazepam 0.5mg BID PRN for anxiety. DVT Prophylaxis: SQ Heparin Code Status: FULL CODE PCP: Kaz Robledo MD [facility] Await bed placement. Discussed with patient's daughter over the phone on 04/01. Time spent evaluating patient, direct bedside care, chart review, placing orders, interpretation of diagnostic studies, discussion with consultants, patient, and family members, as well as other required patient management activities is 50 minutes Please note the above document was generated using voice recognition software. It may contain grammatical, syntax or spelling errors. Any formal questions or concerns about the content, text or information contained within the body of this dictation should be directly addressed to the provider for clarification Admission and Anticipated Discharge Date Admission Date: March 25, 2024 Subjective Patient seen and examined at bedside. He denies any recurrence of chest pain. He appears comfortable; not in distress. No significant events overnight Review of Systems Review of Systems: All systems reviewed & are unremarkable except as noted in Subjective Physical Exam Physical Exam: Constitutional: Alert oriented x 3; not in distress. Has bilateral upper extremity tremors. Respiratory: normal respiratory effort, lungs clear to auscultation, no wheeze, rales, rhonchi. Normal insp/exp effort, no accessory muscle use Cardiovascular: RRR, no murmur, no edema Vessels: no JVD or carotid bruit Chest: normal inspection of chest Abdomen: Soft, nontender. Musculoskeletal: no cyanosis or clubbing, extremities motor strength 5/5. Has bilateral resting tremors Skin: no rashes, warm and dry normal turgor Neurologic: PERRL, EOMI, accommodation nl, no face palsy, no dysarthria CN's II- XI intact bilaterally and moves all extremities Psychiatric: A+Ox3, euthymic affect Results & Data Results & Data Vital Signs (Past 12 Hours) Vital Signs Temp Pulse Pulse Pulse Resp BP BP 04/01/24 09:03 54 L 17 04/01/24 09:02 122/64 04/01/24 08:31 36.6 C 04/01/24 08:27 60 18 04/01/24 08:15 57 L 19 04/01/24 07:40 135/79 04/01/24 07:40 135/79 04/01/24 07:33 53 L 21 11/26/24 07:06 54 L 20 04/01/24 06:00 36.6 C 48 L 48 L 16 129/66 04/01/24 02:31 36.6 C 04/01/24 00:40 53 L 03/31/24 22:52 36.7 C 51 L 22 BP Pulse Ox O2 Del Method 04/01/24 09:03 94 Room Air 04/01/24 09:02 04/01/24 08:31 04/01/24 08:27 95 04/01/24 08:15 90 Room Air 04/01/24 07:40 04/01/24 07:40 04/01/24 07:33 92 04/01/24 07:06 04/01/24 06:00 96 Room Air 04/01/24 02:31 92 Room Air 04/01/24 00:40 03/31/24 22:52 107/62 94 Room Air (1) Parkinson's disease Dyskinesia presence: unspecified whether dyskinesia Fluctuating manifestations: unspecified whether manifestations fluctuate Qualified Code(s): G20.A1 - Parkinson's disease without dyskinesia, without mention of fluctuations (2) Abdominal pain Abdominal location: unspecified location Qualified Code(s): R10.9 - Unspecified abdominal pain (3) Fecal retention Constipation type: unspecified constipation type Qualified Code(s): K59.00 - Constipation, unspecified
[2024-04-02 05:37] LABS: Basophils # (auto) 0.09 K/uL (0.00-0.20); Basophils % (auto) 1.8 %; Eosinophils # (auto) 0.28 K/uL (0.00-0.50); Eosinophils % (auto) 5.6 %; Hematocrit (blood only) 37.9 % (42.0-52.0); Hemoglobin 13.1 g/dl (14.0-18.0); Immature Granulocytes # (auto) 0.02 K/uL (0.01-0.20); Immature Granulocytes % (auto) 0.4 %; Lymphocytes # (auto) 1.51 K/uL (1.20-3.40); Lymphocytes % (auto) 30.1 %; Mean Corpuscular Hemoglobin 31.3 pg (25.0-34.0); Mean Corpuscular Hgb Conc 34.6 g/dL (32.0-36.0); Mean Corpuscular Volume 90.5 fL (80.0-100.0); Mean Platelet Volume 10.7 fL (9.4-12.4); Monocytes # (auto) 0.45 K/uL (0.11-0.59); Neutrophils # (auto) 2.66 K/uL (1.40-6.50); Neutrophils % (auto) 53.1 %; Platelet Count 187 K/uL (130-400); RDW Coefficient of Variation 13.2 % (11.5-14.5); RDW Standard Deviation 43.2 fL (36.4-46.3); Red Blood Count 4.19 M/uL (4.70-6.10); White Blood Count 5.01 K/ul (4.8-10.8)
[2024-04-02 05:53] LABS: BUN Creatinine Ratio 28.3 (10-20); Calcium 9.4 mg/dl (8.6-10.3); Creatinine Clr Calc Pharmacy 67.2 ml/min; Potassium 4.1 mmol/L (3.5-5.1)
--- NOTE | 2024-04-02 08:01 | Cardiology Progress Note ---
Date of Service April 02, 2024 Assessment & Plan (1) Chest pain: Plan 79 yo man presenting with anxiety + dyspnea + constipation (03-25-2024) Consultation - for chest pain EKG - new inferior ST depression. Multivessel CAD on cath - reported above Sigificant RCA/LAD/LCX disease Med Hx: * Parkinson's * Multivessel CAD * Hypertension * Hyperlipidemia * SAH/Subdural hematoma Plans: * No chest discomfort reported * Known mulitvessel CAD * Thought process re: CAD intervention explored during recent visit to [facility] - plans to optimize Medical Therapy * Continue ASA 81 mg po per day * Continue Plavix 75 min po per day * Continue Imdur to 60 mg po per day * Continue Toprol 25 mg po per day * Troponin trending down * Last LDL - 87; considering PCSK9 as an outpt. Referral is in for our Lipid Pharmacist * Continue Zetia 10 mg po per day * Please call back with any additional questions * 50 min spent addressing challenges, educating, and advancing daily plan of care. Kee Law Admission and Anticipated Discharge Date Admission Date: March 25, 2024 Subjective Events Overnight: * No events reported Subjective: * No complaints Review of Systems Review of Systems: All systems reviewed & are unremarkable except as noted in HPI & below Physical Exam Physical Exam: Overweight No elevation in JVP Amol derm S1S2 Soft 2/6 Systolic Murmur CTA B + BS No C/C/E Warm and perfused Results & Data Vital Signs (Past 12 Hours) Vital Signs Temp Pulse Pulse Resp BP BP Pulse Ox 04/02/24 07:55 36.5 C 60 20 116/84 96 04/02/24 04:00 36.9 C 56 L 16 155/109 H 94 04/01/24 23:45 36.7 C 54 L 21 144/71 H 96 04/01/24 23:12 54 L O2 Del Method 04/02/24 07:55 Room Air 04/02/24 04:00 Room Air 04/01/24 23:45 Room Air 04/01/24 23:12 Laboratory Results CBC 04/02/24 Range/Units 04:53 WBC 5.01 (4.8-10.8) K/ul RBC 4.19 L (4.70-6.10) M/uL Hgb 13.1 L (14.0-18.0) g/dl Hct 37.9 L (42.0-52.0) % Plt Count 187 (130-400) K/uL Neut # (Auto) 2.66 (1.40-6.50) K/uL Lymph # (Auto) 1.51 (1.20-3.40) K/uL [place] # (Auto) 0.45 (0.11-0.59) K/uL Eos # (Auto) 0.28 (0.00-0.50) K/uL Baso # (Auto) 0.09 (0.00-0.20) K/uL Comprehensive Metabolic Panel 04/02/24 Range/Units 04:53 Sodium 136 (136-145) mmol/L Potassium 4.1 (3.5-5.1) mmol/L Chloride 103 (98-107) mmol/L Carbon Dioxide 29 (21-32) mmol/L BUN 26 H (6-23) mg/dl Creatinine 0.92 (0.6-1.4) mg/dl Glucose 92 (70-99(Fasting)) mg/dl Calcium 9.4 (8.6-10.3) mg/dl Intake and Output 04/01/24 04/02/24 04/02/24 22:59 06:59 14:59 Other: # Unmeasured Voids 2 1 Weight 87.1 kg Weight Measurement Method Built in [facility] Medications Administered Current Inpatient Medications Acetaminophen (Acetaminophen 325 Mg Tab) 650 mg PO Q4H PRN PRN Reason: pain/fever Stop: 04/24/24 18:16 Last Admin: 03/31/24 08:46 Dose: 650 mg Aspirin (Aspirin 81 Mg Ectab) 81 mg PO DAILY [facility] Stop: 04/25/24 08:59 Last Admin: 04/02/24 08:00 Dose: 81 mg Carbidopa/Levodopa (Carbidopa/Levodopa 25/100mg Ext Rel Tab) 1 tab PO BID [facility] Stop: 04/24/24 15:59 Last Admin: 04/02/24 07:57 Dose: 1 tab Citalopram Hydrobromide (Citalopram 20 Mg Tab) 20 mg PO DAILY [facility] Stop: 04/25/24 08:59 Last Admin: 04/02/24 07:59 Dose: 20 mg Clonazepam (Clonazepam 0.5 Mg Tab) 0.5 mg PO BID PRN PRN Reason: Anxiety/Agitation Stop: 04/24/24 15:54 Last Admin: 03/31/24 20:24 Dose: 0.5 mg Clopidogrel Bisulfate (Clopidogrel Bisulfate 75 Mg Tab) 75 mg PO DAILY [facility] Stop: 04/25/24 08:59 Last Admin: 04/02/24 07:58 Dose: 75 mg Docusate Sodium (Docusate Sodium 100 Mg Cap) 100 mg PO DAILY [facility] Stop: 04/25/24 08:59 Last Admin: 04/01/24 07:44 Dose: 100 mg Ezetimibe (Ezetimibe 10 Mg Tab) 10 mg PO QAM [facility] Stop: 05/01/24 08:59 Last Admin: 04/02/24 07:57 Dose: 10 mg Folic Acid (Folic Acid 400 Mcg Tab) 400 mcg PO DAILY [facility] Stop: 04/25/24 08:59 Last Admin: 04/02/24 07:59 Dose: 400 mcg Heparin Sodium (Porcine) (Heparin Sod 5,000 Unit/0.5 Ml Vial) 5,000 units SQ Q12 [facility] Stop: 04/24/24 20:59 Last Admin: 04/01/24 20:49 Dose: 5,000 units Isosorbide Mononitrate (Isosorbide [place] Extended Rel 60 Mg Tabcr) 60 mg PO QAM [facility] Stop: 05/01/24 08:59 Last Admin: 04/02/24 07:58 Dose: 60 mg Magnesium Hydroxide (Magnesium Hydroxide Susp 30 Ml Udc) 30 ml PO Q6H PRN PRN Reason: Constipation Stop: 04/24/24 18:16 Metoprolol Succinate (Metoprolol Succ 25mg Ext Rel Tab) 25 mg PO DAILY [facility] Stop: 04/25/24 08:59 Last Admin: 04/02/24 07:59 Dose: 25 mg Mineral Oil (Mineral Oil Enema 133 Ml Btl) 133 ml [place] DAILY PRN PRN Reason: Constipation Stop: 04/24/24 18:16 Multivitamins (Multivitamin Tab) 1 tab PO DAILY [facility] Stop: 04/25/24 08:59 Last Admin: 04/02/24 07:59 Dose: 1 tab Ondansetron HCl (Ondansetron Inj 2 Mg/Ml 2 Ml Vial) 4 mg IV Q6H PRN PRN Reason: Nausea Stop: 04/24/24 18:16 Last Admin: 03/28/24 10:44 Dose: 4 mg Polyethylene Glycol (Polyethylene (Miralax) 17 Gm Pack) 17 gm PO DAILY [facility] Stop: 04/25/24 08:59 Last Admin: 04/01/24 07:46 Dose: Not Given Polyethylene Glycol (Polyethylene (Miralax) 17 Gm Pack) 17 gm PO DAILY [facility] Stop: 04/26/24 14:29 Last Admin: 04/01/24 07:46 Dose: Not Given Terazosin HCl (Terazosin Hcl 1 Mg Cap) 1 mg PO HS [facility] Stop: 04/24/24 20:59 Last Admin: 04/01/24 20:49 Dose: 1 mg (1) Chest pain Chest pain type: unspecified Qualified Code(s): R07.9 - Chest pain, unspecified
[2024-04-02] MEDS: HYDROCORTISONE 1% CRM 30 GM TUBE EXT SCH (11:35)
--- NOTE | 2024-04-02 14:51 | Hospitalist Progress Note ---
Date of Service April 02, 2024 Assessment & Plan (1) Parkinson's disease: (2) Abdominal pain: (3) Fecal retention: (4) SOB (shortness of breath) on exertion: Plan Landen Camacho is a 79y/o M with PMHx significant for Parkinson's disease, dyslipidemia, prediabetes, COPD, peripheral vascular disease, CAD, HTN, left carotid artery occlusion, right carotid artery stenosis, vitamin D deficiency, generalized osteoarthritis, hearing loss, tobacco use disorder and anxiety/depression who presented to the ED for evaluation secondary to SOB/abdominal discomfort and placement concerns. Parkinson's Disease, Worsening Tremors: Patient follows with [facility] [Dr. Darron Calvillo] per outpatient records on [facility]. Patient has tremor dominant Parkinson's per documentation and has had difficulty tolerating immediate release Carbidopa/Levodopa due to orthostatic hypotension. He was recently prescribed Carbidopa/Levodopa CR 25/100 BID back in February of this year however he has not started this medication. Started on Carbidopa/Levodopa CR 25/100 BID as per above. However, patient report significant orthostatic hypotension while on the medication. Neurology consulted; recommended to continue current dosing. Antihypertensive amlodipine, lisinopril discontinued due to hypotension Continue metoprolol succinate, imdur Received IV fluids Monitor blood pressure closely Needs follow-up with neurology on discharge Plan to discharge to rehab facility when accepted Chest pain Demand ischemia History of known multivessel CAD EKG reviewed; sinus rhythm with ST depression in inferior lateral leads Appreciate cardiology input:recommended to increase Imdur to 60 mg once a day. Echocardiogram shows moderate size inferior and inferior lateral wall motion abnormality with hypokinesis Continue aspirin, Plavix, metoprolol, Zetia. Consider duration for PCSK9 as outpatient Chest pain resolved Abdominal Pain/Discomfort, Fecal Retention: Chest/Abdomen XR --> No acute chest process, moderate colonic fecal retention w/ nonobstructive bowel gas pattern. Constipation resolved Continue bowel regimen Suspected eczema Started on hydrocortisone cream Monitor SOB w/ Exertion: XR w/ no acute chest process as per above. n. Biofire negative. monitor Other Chronic Medical Conditions: Depression/anxiety, CAD, BPH --> Can continue home medications for these specific conditions. Continue w/ clonazepam 0.5mg BID PRN for anxiety. DVT Px: SQ Heparin Code Status: Full code Disposition Rehab when accepted Admission and Anticipated Discharge Date Admission Date: March 25, 2024 Subjective Patient is seen and examined at bedside Reports itching and erythematous rash No other new complaints today Ongoing tremor Denies any chest pain, dyspnea, nausea, vomiting, abdominal pain, dizziness Review of Systems Review of Systems: All systems reviewed & are unremarkable except as noted in Subjective Physical Exam Physical Exam: Physical Exam: Vitals signs as noted above General Appearance:Moderately built and nourished, no apparent distress Head: normocephalic, Atraumatic, Erythematous ? Eczema Eyes: normal inspection, EOMI Neck: supple, Trachea midline Respiratory/Chest: Normal breath sounds, CTA, No accessory muscle use Cardiovascular: S1, S2, + murmur Abdomen/GI:Soft, Non tender, Bowel sounds present Extremities/Musculoskeletal:normal inspection, no edema Neurologic/Psych:AAOX3, grossly no focal neurological deficits,+resting tremor Skin: normal color, warm Results & Data Results & Data Vital Signs (Past 12 Hours) Vital Signs Temp Pulse Pulse Resp BP BP Pulse Ox 04/02/24 12:03 36.2 C L 65 17 123/72 98 04/02/24 07:55 36.5 C 60 20 116/84 96 04/02/24 07:37 57 L 04/02/24 04:00 36.9 C 56 L 16 155/109 H 94 O2 Del Method 04/02/24 12:03 Room Air 04/02/24 07:55 Room Air 04/02/24 07:37 04/02/24 04:00 Room Air Laboratory Results Short CBC 04/02/24 Range/Units 04:53 WBC 5.01 (4.8-10.8) K/ul Hgb 13.1 L (14.0-18.0) g/dl Hct 37.9 L (42.0-52.0) % Plt Count 187 (130-400) K/uL BMP 04/02/24 04:53 Sodium 136 Potassium 4.1 Chloride 103 Carbon Dioxide 29 BUN 26 H Creatinine 0.92 Glucose 92 Calcium 9.4 (1) Parkinson's disease Dyskinesia presence: unspecified whether dyskinesia Fluctuating manifestations: unspecified whether manifestations fluctuate Qualified Code(s): G20.A1 - Parkinson's disease without dyskinesia, without mention of fluctuations (2) Abdominal pain Abdominal location: unspecified location Qualified Code(s): R10.9 - Unspecified abdominal pain (3) Fecal retention Constipation type: unspecified constipation type Qualified Code(s): K59.00 - Constipation, unspecified
[2024-04-03 05:39] LABS: BUN Creatinine Ratio 23.4 (10-20); Calcium 9.2 mg/dl (8.6-10.3); Creatinine Clr Calc Pharmacy 65.8 ml/min; Potassium 4.1 mmol/L (3.5-5.1)
--- NOTE | 2024-04-03 14:12 | Hospitalist Progress Note ---
Date of Service April 03, 2024 Assessment & Plan (1) Parkinson's disease: (2) Abdominal pain: (3) Fecal retention: (4) SOB (shortness of breath) on exertion: Plan Landen Camacho is a 79y/o M with PMHx significant for Parkinson's disease, dyslipidemia, prediabetes, COPD, peripheral vascular disease, CAD, HTN, left carotid artery occlusion, right carotid artery stenosis, vitamin D deficiency, generalized osteoarthritis, hearing loss, tobacco use disorder and anxiety/depression who presented to the ED for evaluation secondary to SOB/abdominal discomfort and placement concerns. Parkinson's Disease, Worsening Tremors: Patient follows with [facility]rology [Dr. Darron Calvillo] per outpatient records on [facility]. Patient has tremor dominant Parkinson's per documentation and has had difficulty tolerating immediate release Carbidopa/Levodopa due to orthostatic hypotension. He was recently prescribed Carbidopa/Levodopa CR 25/100 BID back in February of this year however he has not started this medication. Started on Carbidopa/Levodopa CR 25/100 BID as per above. However, patient report significant orthostatic hypotension while on the medication. Neurology consulted; recommended to continue current dosing. Antihypertensive amlodipine, lisinopril discontinued due to hypotension Hold terazosin as well given low blood pressure Continue metoprolol succinate, imdur with holding parameters Received IV fluids Monitor blood pressure closely Needs follow-up with neurology on discharge Blood pressure low, asymptomatic Plan to discharge to rehab facility when accepted Chest pain Demand ischemia History of known multivessel CAD EKG reviewed; sinus rhythm with ST depression in inferior lateral leads Appreciate cardiology input:recommended to increase Imdur to 60 mg once a day. Echocardiogram shows moderate size inferior and inferior lateral wall motion abnormality with hypokinesis Continue aspirin, Plavix, metoprolol, Zetia. Consider duration for PCSK9 as outpatient Chest pain resolved Abdominal Pain/Discomfort, Fecal Retention: Chest/Abdomen XR --> No acute chest process, moderate colonic fecal retention w/ nonobstructive bowel gas pattern. Constipation resolved Continue bowel regimen Suspected eczema Continue hydrocortisone cream Monitor SOB w/ Exertion: XR w/ no acute chest process as per above. n. Biofire negative. monitor Other Chronic Medical Conditions: Depression/anxiety, CAD, BPH --> Can continue home medications for these specific conditions. Continue w/ clonazepam 0.5mg BID PRN for anxiety. DVT Px: SQ Heparin Code Status: Full code Disposition Rehab when accepted Admission and Anticipated Discharge Date Admission Date: March 25, 2024 Subjective Patient is seen and examined at bedside Offers no new complaints today Blood pressure variable Ongoing tremor Denies any chest pain, dyspnea, nausea, vomiting, abdominal pain, dizziness Review of Systems Review of Systems: All systems reviewed & are unremarkable except as noted in Subjective Physical Exam Physical Exam: Physical Exam: Vitals signs as noted above General Appearance:Moderately built and nourished, no apparent distress Head: normocephalic, Atraumatic, Erythematous ? Eczema Eyes: normal inspection, EOMI Neck: supple, Trachea midline Respiratory/Chest: Normal breath sounds, CTA, No accessory muscle use Cardiovascular: S1, S2, + murmur Abdomen/GI:Soft, Non tender, Bowel sounds present Extremities/Musculoskeletal:normal inspection, no edema Neurologic/Psych:AAOX3, grossly no focal neurological deficits,+resting tremor Skin: normal color, warm Results & Data Results & Data Vital Signs (Past 12 Hours) Vital Signs Temp Pulse Pulse Resp BP Pulse Ox O2 Del Method 04/03/24 12:17 36.4 C L 58 L 18 101/52 L 94 Room Air 04/03/24 08:00 53 L 04/03/24 07:29 36.5 C 54 L 19 109/73 96 Room Air 04/03/24 02:36 36.4 C L 62 18 123/73 94 Room Air Laboratory Results [facility] 04/03/24 04:46 Sodium 137 Potassium 4.1 Chloride 105 Carbon Dioxide 28 BUN 22 Creatinine 0.94 Glucose 93 Calcium 9.2 (1) Parkinson's disease Dyskinesia presence: unspecified whether dyskinesia Fluctuating manifestations: unspecified whether manifestations fluctuate Qualified Code(s): G20.A1 - Parkinson's disease without dyskinesia, without mention of fluctuations (2) Abdominal pain Abdominal location: unspecified location Qualified Code(s): R10.9 - Unspecified abdominal pain (3) Fecal retention Constipation type: unspecified constipation type Qualified Code(s): K59.00 - Constipation, unspecified
[2024-04-04 04:25] LABS: Hematocrit (blood only) 37.1 % (42.0-52.0); Hemoglobin 12.5 g/dl (14.0-18.0); Mean Corpuscular Hemoglobin 30.5 pg (25.0-34.0); Mean Corpuscular Hgb Conc 33.7 g/dL (32.0-36.0); Mean Corpuscular Volume 90.5 fL (80.0-100.0); Mean Platelet Volume 10.5 fL (9.4-12.4); Platelet Count 194 K/uL (130-400); RDW Coefficient of Variation 13.2 % (11.5-14.5); RDW Standard Deviation 43.3 fL (36.4-46.3); White Blood Count 6.06 K/ul (4.8-10.8)
[2024-04-04 04:39] LABS: BUN Creatinine Ratio 27.4 (10-20); Calcium 9.2 mg/dl (8.6-10.3); Creatinine Clr Calc Pharmacy 63.6 ml/min; Potassium 4.5 mmol/L (3.5-5.1)
[2024-04-04] MEDS ORDERED: ATROPINE SULFATE 0.1 MG/ML 10ML SYR IV PRN (06:49)
--- NOTE | 2024-04-04 06:53 | Communication Note ---
Date of Service: April 04, 2024 Patient with two HR drops to 37 and 39 as per RN. Mostly stays in the 40-50s overnight while sleeping as per RN. SBP 150s. AP Episodic bradycardia Patient asymptomatic. History orthostatic hypotension as per records Hold home BB for now until patient evaluated by cardiology.
--- NOTE | 2024-04-04 16:28 | Hospitalist Progress Note ---
Date of Service April 04, 2024 Assessment & Plan (1) Parkinson's disease: (2) Abdominal pain: (3) Fecal retention: (4) SOB (shortness of breath) on exertion: Plan Landen Camacho is a 79y/o M with PMHx significant for Parkinson's disease, dyslipidemia, prediabetes, COPD, peripheral vascular disease, CAD, HTN, left carotid artery occlusion, right carotid artery stenosis, vitamin D deficiency, generalized osteoarthritis, hearing loss, tobacco use disorder and anxiety/depression who presented to the ED for evaluation secondary to SOB/abdominal discomfort and placement concerns. Parkinson's Disease, Worsening Tremors: Patient follows with [facility]rology [Dr. Darron Calvillo] per outpatient records on [facility]. Patient has tremor dominant Parkinson's per documentation and has had difficulty tolerating immediate release Carbidopa/Levodopa due to orthostatic hypotension. He was recently prescribed Carbidopa/Levodopa CR 25/100 BID back in February of this year however he has not started this medication. Started on Carbidopa/Levodopa CR 25/100 BID as per above. However, patient report significant orthostatic hypotension while on the medication. Neurology consulted; recommended to continue current dosing. Antihypertensive amlodipine, lisinopril discontinued due to hypotension Hold terazosin as well given low blood pressure Continue metoprolol succinate, imdur with holding parameters Received IV fluids Monitor blood pressure closely Needs follow-up with neurology on discharge Blood pressure low, asymptomatic Waiting for rehab placement Chest pain Demand ischemia History of known multivessel CAD EKG reviewed; sinus rhythm with ST depression in inferior lateral leads Appreciate cardiology input:recommended to increase Imdur to 60 mg once a day. Echocardiogram shows moderate size inferior and inferior lateral wall motion abnormality with hypokinesis Continue aspirin, Plavix, metoprolol, Zetia. Consider duration for PCSK9 as outpatient Chest pain resolved PVCs, bigeminy on monitor Likely falsely reading as bradycardia Will hold metoprolol for now Monitor Abdominal Pain/Discomfort, Fecal Retention: Chest/Abdomen XR --> No acute chest process, moderate colonic fecal retention w/ nonobstructive bowel gas pattern. Constipation resolved Continue bowel regimen Suspected eczema Continue hydrocortisone cream Improving Monitor SOB w/ Exertion: XR w/ no acute chest process as per above. n. Biofire negative. monitor Other Chronic Medical Conditions: Depression/anxiety, CAD, BPH --> Can continue home medications for these specific conditions. Continue w/ clonazepam 0.5mg BID PRN for anxiety. DVT Px: SQ Heparin Code Status: Full code Disposition Rehab when accepted Admission and Anticipated Discharge Date Admission Date: March 25, 2024 Subjective Patient is seen and examined at bedside Facial rash slowly improving Noted PVCs on monitor Offers no other complaints today Denies any chest pain, dyspnea, nausea, vomiting, abdominal pain, dizziness Review of Systems Review of Systems: All systems reviewed & are unremarkable except as noted in Subjective Physical Exam Physical Exam: Physical Exam: Vitals signs as noted above General Appearance:Moderately built and nourished, no apparent distress Head: normocephalic, Atraumatic, Erythematous ? Eczema Eyes: normal inspection, EOMI Neck: supple, Trachea midline Respiratory/Chest: Normal breath sounds, CTA, No accessory muscle use Cardiovascular: S1, S2, + murmur Abdomen/GI:Soft, Non tender, Bowel sounds present Extremities/Musculoskeletal:normal inspection, no edema Neurologic/Psych:AAOX3, grossly no focal neurological deficits,+resting tremor Skin: normal color, warm Results & Data Results & Data Vital Signs (Past 12 Hours) Vital Signs Temp Pulse Pulse Resp BP BP Pulse Ox 04/04/24 14:47 55 L 16 136/78 98 04/04/24 11:18 36.7 C 55 L 17 125/70 94 04/04/24 08:24 57 L 04/04/24 07:50 36.4 C L 55 L 18 154/72 H 91 O2 Del Method 04/04/24 14:47 Room Air 04/04/24 11:18 Room Air 04/04/24 08:24 04/04/24 07:50 Room Air Laboratory Results Short CBC 04/04/24 Range/Units 03:50 WBC 6.06 (4.8-10.8) K/ul Hgb 12.5 L (14.0-18.0) g/dl Hct 37.1 L (42.0-52.0) % Plt Count 194 (130-400) K/uL BMP 04/04/24 03:50 Sodium 136 Potassium 4.5 Chloride 104 Carbon Dioxide 28 BUN 29 H Creatinine 1.06 Glucose 106 H Calcium 9.2 (1) Parkinson's disease Dyskinesia presence: unspecified whether dyskinesia Fluctuating manifestations: unspecified whether manifestations fluctuate Qualified Code(s): G20.A1 - Parkinson's disease without dyskinesia, without mention of fluctuations (2) Abdominal pain Abdominal location: unspecified location Qualified Code(s): R10.9 - Unspecified abdominal pain (3) Fecal retention Constipation type: unspecified constipation type Qualified Code(s): K59.00 - Constipation, unspecified
--- NOTE | 2024-04-05 15:06 | Hospitalist Progress Note ---
Date of Service April 05, 2024 Assessment & Plan (1) Parkinson's disease: (2) Abdominal pain: (3) Fecal retention: (4) SOB (shortness of breath) on exertion: Plan Landen Camacho is a 79y/o M with PMHx significant for Parkinson's disease, dyslipidemia, prediabetes, COPD, peripheral vascular disease, CAD, HTN, left carotid artery occlusion, right carotid artery stenosis, vitamin D deficiency, generalized osteoarthritis, hearing loss, tobacco use disorder and anxiety/depression who presented to the ED for evaluation secondary to SOB/abdominal discomfort and placement concerns. Parkinson's Disease, Worsening Tremors: Patient follows with [facility]rology [Dr. Darron Calvillo] per outpatient records on [facility]. Patient has tremor dominant Parkinson's per documentation and has had difficulty tolerating immediate release Carbidopa/Levodopa due to orthostatic hypotension. He was recently prescribed Carbidopa/Levodopa CR 25/100 BID back in February of this year however he has not started this medication. Started on Carbidopa/Levodopa CR 25/100 BID as per above. However, patient report significant orthostatic hypotension while on the medication. Neurology consulted; recommended to continue current dosing. Antihypertensive amlodipine, lisinopril discontinued due to hypotension Hold terazosin as well given low blood pressure Continue imdur with holding parameters Received IV fluids Needs follow-up with neurology on discharge Blood pressure stable Waiting for rehab placement Chest pain Demand ischemia History of known multivessel CAD EKG reviewed; sinus rhythm with ST depression in inferior lateral leads Appreciate cardiology input:recommended to increase Imdur to 60 mg once a day. Echocardiogram shows moderate size inferior and inferior lateral wall motion abnormality with hypokinesis Continue aspirin, Plavix, metoprolol, Zetia. Consider duration for PCSK9 as outpatient Chest pain resolved PVCs, bigeminy on monitor Likely falsely reading as bradycardia Will hold metoprolol for now Monitor Abdominal Pain/Discomfort, Fecal Retention: Chest/Abdomen XR --> No acute chest process, moderate colonic fecal retention w/ nonobstructive bowel gas pattern. Constipation resolved Continue bowel regimen Encouraged to ambulate Suspected eczema Continue hydrocortisone cream Slowly improving Monitor SOB w/ Exertion: XR w/ no acute chest process as per above. n. Biofire negative. monitor Other Chronic Medical Conditions: Depression/anxiety, CAD, BPH --> Can continue home medications for these specific conditions. Continue w/ clonazepam 0.5mg BID PRN for anxiety. DVT Px: SQ Heparin Code Status: Full code Disposition Rehab when accepted Admission and Anticipated Discharge Date Admission Date: March 25, 2024 Subjective Patient is seen and examined at bedside No new complaints In good spirits Waiting for rehab placement Facial rash continues to improve Denies any chest pain, dyspnea, nausea, vomiting, abdominal pain, dizziness Review of Systems Review of Systems: All systems reviewed & are unremarkable except as noted in Subjective Physical Exam Physical Exam: Physical Exam: Vitals signs as noted above General Appearance:Moderately built and nourished, no apparent distress Head: normocephalic, Atraumatic, Erythematous ? Eczema Eyes: normal inspection, EOMI Neck: supple, Trachea midline Respiratory/Chest: Normal breath sounds, CTA, No accessory muscle use Cardiovascular: S1, S2, + murmur Abdomen/GI:Soft, Non tender, Bowel sounds present Extremities/Musculoskeletal:normal inspection, no edema Neurologic/Psych:AAOX3, grossly no focal neurological deficits,+resting tremor Skin: normal color, warm Results & Data Results & Data Vital Signs (Past 12 Hours) Vital Signs Temp Pulse Pulse Resp BP BP Pulse Ox 04/05/24 11:24 36.7 C 57 L 18 113/64 97 04/05/24 07:34 36.4 C L 60 19 149/92 H 97 04/05/24 07:29 53 L O2 Del Method 04/05/24 11:24 Room Air 04/05/24 07:34 Room Air 04/05/24 07:29 (1) Parkinson's disease Dyskinesia presence: unspecified whether dyskinesia Fluctuating manifestations: unspecified whether manifestations fluctuate Qualified Code(s): G20.A1 - Parkinson's disease without dyskinesia, without mention of fluctuations (2) Abdominal pain Abdominal location: unspecified location Qualified Code(s): R10.9 - Unspecified abdominal pain (3) Fecal retention Constipation type: unspecified constipation type Qualified Code(s): K59.00 - Constipation, unspecified
--- NOTE | 2024-04-06 13:59 | Hospitalist Progress Note ---
Date of Service April 06, 2024 Assessment & Plan (1) Parkinson's disease: (2) Abdominal pain: (3) Fecal retention: (4) SOB (shortness of breath) on exertion: Plan Landen Camacho is a 79y/o M with PMHx significant for Parkinson's disease, dyslipidemia, prediabetes, COPD, peripheral vascular disease, CAD, HTN, left carotid artery occlusion, right carotid artery stenosis, vitamin D deficiency, generalized osteoarthritis, hearing loss, tobacco use disorder and anxiety/depression who presented to the ED for evaluation secondary to SOB/abdominal discomfort and placement concerns. Parkinson's Disease, Worsening Tremors: Patient follows with [facility] [Dr. Darron Calvillo] [facility] Patient has tremor dominant Parkinson's per documentation and has had difficulty tolerating immediate release Carbidopa/Levodopa due to orthostatic hypotension. He was recently prescribed Carbidopa/Levodopa CR 25/100 BID back in February of this year however he has not started this medication. Started on Carbidopa/Levodopa CR 25/100 BID as per above. However, patient report significant orthostatic hypotension while on the medication. Neurology consulted; recommended to continue current dosing. Antihypertensive amlodipine, lisinopril discontinued due to hypotension Hold terazosin for now until blood pressure improves Continue imdur with holding parameters Received IV fluids Needs follow-up with neurology on discharge Monitor blood pressure closely Waiting for rehab placement Chest pain Demand ischemia History of known multivessel CAD EKG reviewed; sinus rhythm with ST depression in inferior lateral leads Appreciate cardiology input:recommended to increase Imdur to 60 mg once a day. Echocardiogram shows moderate size inferior and inferior lateral wall motion abnormality with hypokinesis Continue aspirin, Plavix, metoprolol, Zetia. Consider duration for PCSK9 as outpatient Chest pain resolved PVCs, bigeminy on monitor Likely falsely reading as bradycardia Will hold metoprolol for now Monitor Abdominal Pain/Discomfort, Fecal Retention: Chest/Abdomen XR --> No acute chest process, moderate colonic fecal retention w/ nonobstructive bowel gas pattern. Constipation resolved Continue bowel regimen Encouraged to ambulate Suspected eczema Continue hydrocortisone cream Clinically improved SOB w/ Exertion: XR w/ no acute chest process as per above. n. Biofire negative. monitor Other Chronic Medical Conditions: Depression/anxiety, CAD, BPH --> Can continue home medications for these specific conditions. Continue w/ clonazepam 0.5mg BID PRN for anxiety. DVT Px: SQ Heparin Code Status: Full code Disposition Rehab when accepted Admission and Anticipated Discharge Date Admission Date: March 25, 2024 Subjective Patient is seen and examined at bedside States feeling well today Facial rash much improved Denies any chest pain, dyspnea, nausea, vomiting, abdominal pain, dizziness Waiting for rehab placement Review of Systems Review of Systems: All systems reviewed & are unremarkable except as noted in Subjective Physical Exam Physical Exam: Physical Exam: Vitals signs as noted above General Appearance:Moderately built and nourished, no apparent distress Head: normocephalic, Atraumatic, Erythematous ? Eczema Eyes: normal inspection, EOMI Neck: supple, Trachea midline Respiratory/Chest: Normal breath sounds, CTA, No accessory muscle use Cardiovascular: S1, S2, + murmur Abdomen/GI:Soft, Non tender, Bowel sounds present Extremities/Musculoskeletal:normal inspection, no edema Neurologic/Psych:AAOX3, grossly no focal neurological deficits,+resting tremor Skin: normal color, warm Results & Data Results & Data Vital Signs (Past 12 Hours) Vital Signs Temp Pulse Pulse Resp BP BP Pulse Ox 04/06/24 11:50 36.5 C 59 L 18 129/79 97 04/06/24 08:07 49 L 04/06/24 07:42 51 L 04/06/24 07:23 36.3 C L 52 L 18 161/80 H 96 04/06/24 04:01 36.4 C L 57 L 17 160/81 H 93 O2 Del Method 04/06/24 11:50 Room Air 04/06/24 08:07 04/06/24 07:42 04/06/24 07:23 Room Air 04/06/24 04:01 Room Air (1) Parkinson's disease Dyskinesia presence: unspecified whether dyskinesia Fluctuating manifestations: unspecified whether manifestations fluctuate Qualified Code(s): G20.A1 - Parkinson's disease without dyskinesia, without mention of fluctuations (2) Abdominal pain Abdominal location: unspecified location Qualified Code(s): R10.9 - Unspecified abdominal pain (3) Fecal retention Constipation type: unspecified constipation type Qualified Code(s): K59.00 - Constipation, unspecified
[2024-04-06] MEDS: POLYETHYLENE (MIRALAX) 17 GM PACK PO PRN (19:48)
[2024-04-07] MEDS ORDERED: lisinopril 5 MG TAB PO SCH (09:30)
--- NOTE | 2024-04-07 15:54 | Hospitalist Progress Note ---
Date of Service April 07, 2024 Assessment & Plan (1) Parkinson's disease: (2) Abdominal pain: (3) Fecal retention: (4) SOB (shortness of breath) on exertion: Plan Landen Camacho is a 79y/o M with PMHx significant for Parkinson's disease, dyslipidemia, prediabetes, COPD, peripheral vascular disease, CAD, HTN, left carotid artery occlusion, right carotid artery stenosis, vitamin D deficiency, generalized osteoarthritis, hearing loss, tobacco use disorder and anxiety/depression who presented to the ED for evaluation secondary to SOB/abdominal discomfort and placement concerns. Parkinson's Disease, Worsening Tremors: Patient follows with [facility]rology [Dr. Darron Calvillo] per outpatient records on [facility]. Patient has tremor dominant Parkinson's per documentation and has had difficulty tolerating immediate release Carbidopa/Levodopa due to orthostatic hypotension. He was recently prescribed Carbidopa/Levodopa CR 25/100 BID back in February of this year however he has not started this medication. Started on Carbidopa/Levodopa CR 25/100 BID as per above. However, patient report significant orthostatic hypotension while on the medication. Neurology consulted; recommended to continue current dosing. Antihypertensive amlodipine, lisinopril, terazosin discontinued due to hypotension Continue imdur with holding parameters Received IV fluids Patient's blood pressure very sensitive to antihypertensives even with minimal dose. Hold off for now all antihypertensives Needs follow-up with neurology on discharge Monitor blood pressure Waiting for rehab placement Chest pain Demand ischemia History of known multivessel CAD EKG reviewed; sinus rhythm with ST depression in inferior lateral leads Appreciate cardiology input:recommended to increase Imdur to 60 mg once a day. Echocardiogram shows moderate size inferior and inferior lateral wall motion abnormality with hypokinesis Continue aspirin, Plavix, metoprolol, Zetia. Consider duration for PCSK9 as outpatient Chest pain resolved PVCs, bigeminy on monitor Likely falsely reading as bradycardia Resume metoprolol as able Monitor Abdominal Pain/Discomfort, Fecal Retention: Chest/Abdomen XR --> No acute chest process, moderate colonic fecal retention w/ nonobstructive bowel gas pattern. Constipation resolved Continue bowel regimen Encouraged to ambulate Suspected eczema Continue hydrocortisone cream Clinically improved SOB w/ Exertion: XR w/ no acute chest process as per above. n. Biofire negative. monitor Other Chronic Medical Conditions: Depression/anxiety, CAD, BPH --> Can continue home medications for these specific conditions. Continue w/ clonazepam 0.5mg BID PRN for anxiety. DVT Px: SQ Heparin Code Status: Full code Disposition Rehab when accepted Admission and Anticipated Discharge Date Admission Date: March 25, 2024 Subjective Patient is seen and examined at bedside Reported transient dizziness this morning Had PT evaluation earlier today No other complaints today Denies any chest pain, dyspnea, nausea, vomiting, abdominal pain Waiting for rehab placement Review of Systems Review of Systems: All systems reviewed & are unremarkable except as noted in Subjective Physical Exam Physical Exam: Physical Exam: Vitals signs as noted above General Appearance:Moderately built and nourished, no apparent distress Head: normocephalic, Atraumatic, Erythematous ? Eczema Eyes: normal inspection, EOMI Neck: supple, Trachea midline Respiratory/Chest: Normal breath sounds, CTA, No accessory muscle use Cardiovascular: S1, S2, + murmur Abdomen/GI:Soft, Non tender, Bowel sounds present Extremities/Musculoskeletal:normal inspection, no edema Neurologic/Psych:AAOX3, grossly no focal neurological deficits,+resting tremor Skin: normal color, warm Results & Data Results & Data Vital Signs (Past 12 Hours) Vital Signs Temp Pulse Resp BP BP Pulse Ox O2 Del Method 04/07/24 11:50 36.5 C 62 18 136/72 96 Room Air 04/07/24 07:29 36.4 C L 54 L 18 172/80 H 97 Room Air 04/07/24 03:58 36.4 C L 61 16 157/82 H 94 Room Air (1) Parkinson's disease Dyskinesia presence: unspecified whether dyskinesia Fluctuating manifestations: unspecified whether manifestations fluctuate Qualified Code(s): G20.A1 - Parkinson's disease without dyskinesia, without mention of fluctuations (2) Abdominal pain Abdominal location: unspecified location Qualified Code(s): R10.9 - Unspecified abdominal pain (3) Fecal retention Constipation type: unspecified constipation type Qualified Code(s): K59.00 - Constipation, unspecified
[2024-04-08 11:35] VITALS: RESP 19; TEMP 98.1; O2SAT 95
[2024-04-08 11:59] VITALS: BP 174/90; PULSE 48
--- NOTE | 2024-04-08 12:09 | Hospitalist Progress Note ---
Date of Service April 08, 2024 Assessment & Plan (1) Parkinson's disease: (2) Abdominal pain: (3) Fecal retention: (4) SOB (shortness of breath) on exertion: Plan Landen Camacho is a 79y/o M with PMHx significant for Parkinson's disease, dyslipidemia, prediabetes, COPD, peripheral vascular disease, CAD, HTN, left carotid artery occlusion, right carotid artery stenosis, vitamin D deficiency, generalized osteoarthritis, hearing loss, tobacco use disorder and anxiety/depression who presented to the ED for evaluation secondary to SOB/abdominal discomfort and placement concerns. Parkinson's Disease, Worsening Tremors: Patient follows with [facility] [Dr. Darron Calvillo] per outpatient records on [facility]. Patient has tremor dominant Parkinson's per documentation and has had difficulty tolerating immediate release Carbidopa/Levodopa due to orthostatic hypotension. He was recently prescribed Carbidopa/Levodopa CR 25/100 BID back in February of this year however he has not started this medication. Started on Carbidopa/Levodopa CR 25/100 BID as per above. However, patient report significant orthostatic hypotension while on the medication. Neurology consulted; recommended to continue current dosing. Antihypertensive amlodipine, lisinopril, terazosin discontinued due to hypotension Continue imdur with holding parameters Received IV fluids Patient's blood pressure very sensitive to antihypertensives even with minimal dose. Hold off for now all antihypertensives Monitor blood pressure Continue current medication Advised to follow-up with neurology on discharge Plan to discharge to rehab facility today Chest pain Demand ischemia History of known multivessel CAD EKG reviewed; sinus rhythm with ST depression in inferior lateral leads Appreciate cardiology input:recommended to increase Imdur to 60 mg once a day. Echocardiogram shows moderate size inferior and inferior lateral wall motion abnormality with hypokinesis Continue aspirin, Plavix, metoprolol, Zetia. Consider duration for PCSK9 as outpatient Chest pain resolved PVCs, bigeminy on monitor Likely falsely reading as bradycardia Resume metoprolol as able Monitor Abdominal Pain/Discomfort, Fecal Retention: Chest/Abdomen XR --> No acute chest process, moderate colonic fecal retention w/ nonobstructive bowel gas pattern. Constipation resolved Continue bowel regimen Encouraged to ambulate Suspected eczema Continue hydrocortisone cream Clinically improved SOB w/ Exertion: XR w/ no acute chest process as per above. n. Biofire negative. monitor Other Chronic Medical Conditions: Depression/anxiety, CAD, BPH --> Can continue home medications for these specific conditions. Continue w/ clonazepam 0.5mg BID PRN for anxiety. DVT Px: SQ Heparin Code Status: Full code Disposition Rehab Admission and Anticipated Discharge Date Admission Date: March 25, 2024 Subjective Patient is seen and examined at bedside Dizziness resolved Offers no new complaints today States feeling well today Denies any chest pain, dyspnea, nausea, vomiting, abdominal pain Plan to be discharged to rehab facility today Review of Systems Review of Systems: All systems reviewed & are unremarkable except as noted in Subjective Physical Exam Physical Exam: Physical Exam: Vitals signs as noted above General Appearance:Moderately built and nourished, no apparent distress Head: normocephalic, Atraumatic, Erythematous ? Eczema Eyes: normal inspection, EOMI Neck: supple, Trachea midline Respiratory/Chest: Normal breath sounds, CTA, No accessory muscle use Cardiovascular: S1, S2, + murmur Abdomen/GI:Soft, Non tender, Bowel sounds present Extremities/Musculoskeletal:normal inspection, no edema Neurologic/Psych:AAOX3, grossly no focal neurological deficits,+resting tremor Skin: normal color, warm Results & Data Results & Data Vital Signs (Past 12 Hours) Vital Signs Temp Pulse Pulse Pulse Resp BP BP 04/08/24 11:57 36.7 C 48 L 63 19 174/90 H 158/82 H 04/08/24 11:34 36.7 C 63 19 158/82 H 04/08/24 08:00 59 L 04/08/24 07:42 36.4 C L 56 L 18 174/90 H 04/08/24 03:00 36.5 C 72 19 123/77 Pulse Ox O2 Del Method 04/08/24 11:57 95 04/08/24 11:34 95 Room Air 04/08/24 08:00 04/08/24 07:42 96 Room Air 04/08/24 03:00 92 Room Air (1) Parkinson's disease Dyskinesia presence: unspecified whether dyskinesia Fluctuating manifestations: unspecified whether manifestations fluctuate Qualified Code(s): G20.A1 - Parkinson's disease without dyskinesia, without mention of fluctuations (2) Abdominal pain Abdominal location: unspecified location Qualified Code(s): R10.9 - Unspecified abdominal pain (3) Fecal retention Constipation type: unspecified constipation type Qualified Code(s): K59.00 - Constipation, unspecified
--- NOTE | 2024-04-08 12:17 | Discharge Summary ---
Date of Service April 08, 2024 Admission HPI Per Admitting Provider Landen Camacho is a 79y/o M with PMHx significant for Parkinson's disease, dyslipidemia, prediabetes, COPD, peripheral vascular disease, CAD, HTN, left carotid artery occlusion, right carotid artery stenosis, vitamin D deficiency, generalized osteoarthritis, hearing loss, tobacco use disorder, history of [place] and anxiety/depression who presented to the ED for evaluation secondary to SOB/abdominal discomfort and placement concerns. History obtained from the patient, conversation with the patient's daughter (Tiffanie) over the phone and associated chart review. Patient seen at bedside with Dr. Gil. Patient notes worsening BUE tremors over the past 3 days. He also endorses abdominal discomfort/pain, increasing nausea and SOB with exertion over the past 3 days as well. No supplemental oxygen use prior to arrival. No headaches or cough. He did have a BM in the ED which has completely resolved his abdominal discomfort/pain. He lives by himself at home and uses a cane to ambulate; no falls in the past month. He is not currently on any medications for his Parkinson's disease - reports a medication was prescribed 2 weeks ago but that it needs to be closely monitored. Patient follows with [facility] - Dr. Darron Calvillo - per outpatient records on [facility]. Patient has tremor dominant Parkinson's per documentation and has had difficulty tolerating immediate release Carbidopa/Levodopa due to orthostatic hypotension. He was recently prescribed Carbidopa/Levodopa CR 25/100 BID back in February of this year however he has not started this medication. His daughter, Tiffanie, has been trying to having him placed at [place] at [facility] as he is having significant difficulty living at home by himself without any assistance. His anxiety has worsened lately as his is in the process of being transitioned to hospice care. Tiffanie reports he is not eating well nor functioning well at home. He has also been sleeping not well at all. Tiffanie is unsure if he has been taking his medications either. He can no longer ambulate up and down steps well. He becomes "winded" when walking longer distances per Tiffanie, which has been going on for a few months. Admission Exam Per Admitting Provider On exam General: Not in distress Eyes: PERRL, conjunctivae normal, not pale, anicteric sclerae, EOM intact bilaterally ENMT: External ear and nose normal, oropharynx normal Respiratory: Normal respiratory effort, no respiratory distress, lungs clear to auscultation, no crackles and no wheezes Cardiovascular: RRR S1 S2 Gastrointestinal (Abdomen): Abdomen is not distended, soft, non-tender to palpation, no guarding, no palpable hepatosplenomegaly, normal bowel sounds Musculoskeletal: No pedal edema Neurologic: Alert and oriented x 3, No focal weakness, sensation grossly intact, +gross tremors in both Upper extremities Psychiatric: Euthymic affect Principal Diagnosis Parkinson's Disease Significant orthostatic hypotension Paroxysmal ventricular tachycardia Eczema Constipation Discharge Data Allergies Allergy/AdvReac Type Severity Reaction Status Date / Time bee venom protein (honey bee) Allergy Severe SWELLING, Verified 03/25/24 14:10 INTENSE ITCHING, HIVES gabapentin Allergy Unknown Unknown Unverified 03/25/24 14:10 atorvastatin AdvReac Intermediate MUSCLE PAIN Verified 03/25/24 14:10 carbidopa [From Sinemet] AdvReac Intermediate Unknown/Family Unverified 03/25/24 14:10 says only Sinemet, haven't tried Sinemet CR. levodopa [From Sinemet] AdvReac Intermediate Unknown/Family Unverified 03/25/24 14:10 says only Sinemet, haven't tried Sinemet CR. Consultations 03/25/24 15:24 ED Decision to Admit Stat 03/27/24 11:20 Consult Neurology Routine 03/31/24 08:48 Consult Cardiology Routine Procedures Performed Laboratory Results WBC 6.06 K/ul (4.8-10.8) 04/04/24 03:50 RBC 4.10 M/uL (4.70-6.10) L 04/04/24 03:50 Hgb 12.5 g/dl (14.0-18.0) L 04/04/24 03:50 Hct 37.1 % (42.0-52.0) L 04/04/24 03:50 MCV 90.5 fL (80.0-100.0) 04/04/24 03:50 MCH 30.5 pg (25.0-34.0) 04/04/24 03:50 MCHC 33.7 g/dL (32.0-36.0) 04/04/24 03:50 RDW Std Deviation 43.3 fL (36.4-46.3) 04/04/24 03:50 RDW Coeff of Lanre 13.2 % (11.5-14.5) 04/04/24 03:50 Plt Count 194 K/uL (130-400) 04/04/24 03:50 MPV 10.5 fL (9.4-12.4) 04/04/24 03:50 Immature Gran % (Auto) 0.4 % 04/02/24 04:53 Neut % (Auto) 53.1 % 04/02/24 04:53 Lymph % (Auto) 30.1 % 04/02/24 04:53 Tate % (Auto) 9.0 % 04/02/24 04:53 Eos % (Auto) 5.6 % 04/02/24 04:53 Baso % (Auto) 1.8 % 04/02/24 04:53 Neut # (Auto) 2.66 K/uL (1.40-6.50) 04/02/24 04:53 Lymph # (Auto) 1.51 K/uL (1.20-3.40) 04/02/24 04:53 Tate # (Auto) 0.45 K/uL (0.11-0.59) 04/02/24 04:53 Eos # (Auto) 0.28 K/uL (0.00-0.50) 04/02/24 04:53 Baso # (Auto) 0.09 K/uL (0.00-0.20) 04/02/24 04:53 Immature Gran # (Auto) 0.02 K/uL (0.01-0.20) 04/02/24 04:53 PT 10.5 Seconds (9.0-12.0) 03/25/24 13:35 INR 1.0 (0.9-1.1) 03/25/24 13:35 Sodium 136 mmol/L (136-145) 04/04/24 03:50 Potassium 4.5 mmol/L (3.5-5.1) 04/04/24 03:50 Chloride 104 mmol/L (98-107) 04/04/24 03:50 Carbon Dioxide 28 mmol/L (21-32) 04/04/24 03:50 Anion Gap 4 (3-11) 04/04/24 03:50 BUN 29 mg/dl (6-23) H 04/04/24 03:50 Creatinine 1.06 mg/dl (0.6-1.4) 04/04/24 03:50 Est Cr Clr Drug Dosing 63.6 ml/min 04/04/24 03:50 eGFR 71.39 04/04/24 03:50 BUN/Creatinine Ratio 27.4 (10-20) H 04/04/24 03:50 Glucose 106 mg/dl (70-99(Fasting)) H 04/04/24 03:50 Calcium 9.2 mg/dl (8.6-10.3) 04/04/24 03:50 Phosphorus 3.5 mg/dl (2.5-4.9) 03/26/24 05:30 Magnesium 2.3 mg/dl (1.7-2.4) 03/26/24 05:30 Total Bilirubin 0.4 mg/dl (0.2-1.0) 03/25/24 13:35 AST 14 U/L (13-39) 03/25/24 13:35 ALT 10 U/L (7-52) 03/25/24 13:35 Alkaline Phosphatase 77 U/L (34-104) 03/25/24 13:35 Troponin I High Sens 54.8 pg/ml (0-20) H* D 03/31/24 10:11 Total Protein 6.6 gm/dl (6.0-8.3) 03/25/24 13:35 Albumin 4.0 gm/dl (3.4-5.0) 03/25/24 13:35 Globulin 2.6 gm/dl (2.5-4.0) 03/25/24 13:35 Albumin/Globulin Ratio 1.5 (0.9-2) 03/25/24 13:35 TSH 1.922 uIu/ml (0.300-4.500) 03/25/24 13:35 Urine Color Dark Yellow 03/25/24 21:20 Urine Appearance Turbid (Clear) A 03/25/24 21:20 Urine pH 6.5 (4.5-7.5) 03/25/24 21:20 Ur Specific Dresher 1.021 (1.000-1.030) 03/25/24 21:20 Urine Protein Trace (Negative) H 03/25/24 21:20 Urine Glucose (UA) Negative (Negative) 03/25/24 21:20 Urine Ketones Trace (Negative) H 03/25/24 21:20 Urine Blood Negative (Negative) 03/25/24 21:20 Urine Nitrite Negative (Negative) 03/25/24 21:20 Urine Bilirubin Negative (Negative) 03/25/24 21:20 Urine Urobilinogen Negative (Negative) 03/25/24 21:20 Ur Leukocyte Esterase Trace (Negative) H 03/25/24 21:20 Urine WBC (Auto) 0-5 /hpf (0-5) 03/25/24 21:20 Urine RBC (Auto) 6-10 /hpf (0-2) H 03/25/24 21:20 U Hyaline Cast (Auto) 0-2 /lpf (0-2) 03/25/24 21:20 U Epithel Cells (Auto) 3-5 /hpf (0-2) H 03/25/24 21:20 Urine Bacteria (Auto) None Seen (None Seen) 03/25/24 21:20 Calcium Oxalate Crystal Present (None Prsent) A 03/25/24 21:20 Adenovirus (PCR) Not Detected (NotDetected) 03/25/24 14:08 B. pertussis DNA (PCR) Not Detected (NotDetected) 03/25/24 14:08 B.parapertussis DNA PCR Not Detected (NotDetected) 03/25/24 14:08 C. pneumoniae DNA (PCR) Not Detected (NotDetected) 03/25/24 14:08 Coronavirus OC43 (PCR) Not Detected (NotDetected) 03/25/24 14:08 Coronavirus HKU1 (PCR) Not Detected (NotDetected) 03/25/24 14:08 Coronavirus 229E (PCR) Not Detected (NotDetected) 03/25/24 14:08 SARS-CoV-2 (PCR) Not Detected (NotDetected) 03/25/24 14:08 Coronavirus NL63 (PCR) Not Detected (NotDetected) 03/25/24 14:08 Human Metapneumovir PCR Not Detected (NotDetected) 03/25/24 14:08 Influenza Type A (PCR) Not Detected (NotDetected) 03/25/24 14:08 Influenza Type B (PCR) Not Detected (NotDetected) 03/25/24 14:08 M. pneumoniae (PCR) Not Detected (NotDetected) 03/25/24 14:08 Parainfluenza 1 (PCR) Not Detected (NotDetected) 03/25/24 14:08 Parainfluenza 2 (PCR) Not Detected (NotDetected) 03/25/24 14:08 Parainfluenza 3 (PCR) Not Detected (NotDetected) 03/25/24 14:08 Parainfluenza 4 (PCR) Not Detected (NotDetected) 03/25/24 14:08 RSV (PCR) Not Detected (NotDetected) 03/25/24 14:08 Entero/Rhino (PCR) Not Detected (NotDetected) 03/25/24 14:08 Impressions Chest/Abdomen X-ray 03/25/24 13:29 XR abdomen 2V w PA chest HISTORY: 79 years-old Male constipation, SOB COMPARISON: 01/24/2024 TECHNIQUE: PA view of the chest with erect and supine views of the abdomen FINDINGS: Cardiomediastinal and hilar silhouettes are within normal limits. There is unchanged chronic interstitial coarsening. No pneumothorax, pleural effusion or airspace consolidation. The bones appear grossly intact. Moderate colonic fecal retention. Nonobstructive bowel gas pattern. No pneumoperitoneum. Vascular ossifications of the kidneys are again noted. No urolith is seen. IMPRESSION: 1. No acute process of the chest. 2. Nonobstructive bowel gas pattern. 3. Moderate colonic fecal retention. ACT 112: Negative or not required by law. The above report was generated using voice recognition software. It may contain grammatical, syntax or spelling errors. Electronically signed by: Basilio Andrews M.D. 03/25/2024 3:11 PM Hospital Course (1) Parkinson's disease: (2) Abdominal pain: (3) Fecal retention: (4) SOB (shortness of breath) on exertion: Valentin Camacho is a 79y/o M with PMHx significant for Parkinson's disease, dyslipidemia, prediabetes, COPD, peripheral vascular disease, CAD, HTN, left carotid artery occlusion, right carotid artery stenosis, vitamin D deficiency, generalized osteoarthritis, hearing loss, tobacco use disorder and anxiety/depression who presented to the ED for evaluation secondary to SOB/abdominal discomfort and placement concerns. Parkinson's Disease, Worsening Tremors: Patient follows with [facility] [Dr. Darron Calvillo] per outpatient records on [facility]. Patient has tremor dominant Parkinson's per documentation and has had difficulty tolerating immediate release Carbidopa/Levodopa due to orthostatic hypotension. He was recently prescribed Carbidopa/Levodopa CR 25/100 BID back in February of this year however he has not started this medication. Started on Carbidopa/Levodopa CR 25/100 BID as per above. However, patient report significant orthostatic hypotension while on the medication. Neurology consulted; recommended to continue current dosing. Antihypertensive amlodipine, lisinopril, terazosin discontinued due to hypotension Continue imdur with holding parameters Received IV fluids Patient's blood pressure very sensitive to antihypertensives even with minimal dose. Hold off for now all antihypertensives Monitor blood pressure Continue current medication Advised to follow-up with neurology on discharge Plan to discharge to rehab facility today Chest pain Demand ischemia History of known multivessel CAD EKG reviewed; sinus rhythm with ST depression in inferior lateral leads Appreciate cardiology input:recommended to increase Imdur to 60 mg once a day. Echocardiogram shows moderate size inferior and inferior lateral wall motion abnormality with hypokinesis Continue aspirin, Plavix, metoprolol, Zetia. Consider duration for PCSK9 as outpatient Chest pain resolved PVCs, bigeminy on monitor Likely falsely reading as bradycardia Resume metoprolol as able Monitor Abdominal Pain/Discomfort, Fecal Retention: Chest/Abdomen XR --> No acute chest process, moderate colonic fecal retention w/ nonobstructive bowel gas pattern. Constipation resolved Continue bowel regimen Encouraged to ambulate Suspected eczema Continue hydrocortisone cream Clinically improved SOB w/ Exertion: XR w/ no acute chest process as per above. n. Biofire negative. monitor Other Chronic Medical Conditions: Depression/anxiety, CAD, BPH --> Can continue home medications for these specific conditions. Continue w/ clonazepam 0.5mg BID PRN for anxiety. DVT Px: SQ Heparin Code Status: Full code Disposition Rehab Total Time Total Time Spent Total Time Spent (In Minutes): 55 minutes Discharge Plan Discharge Items Patient Disposition: Transfer Longterm Fac Reason For Visit: SOB/ABDOMINAL DISCOMFORT, PLACEMENT Discharge Diagnosis: Parkinson's Disease Significant orthostatic hypotension Paroxysmal ventricular tachycardia Eczema Constipation Activity: Per Instructions section Exercise/Sports: Gradually increase as tolerated Non-emergency contact: Primary Care Provider and Neurologist Call non-emergency contact if: you have any medication questions, your symptoms worsen, your pain is concerning for you and you have a fever Follow-up/Referrals: Kaz Robledo MD [Primary Care Provider] - Diet: Heart Healthy Diet Texture: Easy to Chew Addtl Attending Provider Instructions: Follow-up with your primary care physician in 1 week upon discharge from rehab facility Follow-up with your neurologist in 2 to 3 weeks --Your blood pressure medications are discontinued due to low blood pressure while you are hospitalized. Monitor your blood pressure regularly at home. Discuss with your physician for further adjustment of medications as needed. --Continue medications to help with bowel movements while at rehab facility to prevent constipation. Seek immediate medical attention if your symptoms reoccur or worsen Please take all medications as instructed on discharge list below. Please call if you have any questions or problems. You can reach a [facility] hospitalist on duty at [facility] 24 hours a day by calling [phone] Pending Studies at Discharge: No Stand-Alone Forms: My [facility] Skilled Items Patient informed of condition?: Yes DNR: No Discharge Level of Care: Skilled Communicable Disease: No Discharge Prognosis: Stable Lines: None Urinary Catheter: No Medications and DC Order Prescriptions: New hydrocortisone 1 % Ointment 1 applic EXT BID 5 Days Qty: 28.35 0RF Rx Instructions: Facial rash isosorbide mononitrate 60 mg Tablet Extended Release 24 Hr 60 mg PO QAM Qty: 30 1RF Continued nitroglycerin [Nitrostat] 0.4 mg Tablet, Sublingual 0.4 mg sublingual DIRECTED PRN (Reason: Chest Pain) Qty: 0 multivitamin Tablet 1 tab PO DAILY Qty: 0 aspirin [Pollo Low Dose Aspirin] 81 mg Tablet,Delayed Release (Dr/Ec) 81 mg PO DAILY 90 Days Qty: 90 clonazepam [Klonopin] 0.5 mg tablet 0.5 - 1 mg PO HS PRN (Reason: sleep) Qty: 0 citalopram 20 mg tablet 20 mg PO DAILY Qty: 0 coenzyme Q10 [Co Q-10] 400 mg capsule 400 mg PO DAILY docusate sodium 100 mg capsule 100 mg PO DAILY PRN (Reason: Constipation) folic acid 400 mcg tablet 400 mcg PO DAILY metoprolol succinate 25 mg tablet extended release 24 hr 25 mg PO DAILY Repatha Pushtronex 420 mg/3.5 mL wearable injector 420 mg SQ MONTHLY ketoconazole 2 % cream 1 appln TOP UD Rx Instructions: APPLY TO FACE 2-3 TIMES PER WEEK ketoconazole 2 % shampoo 1 appln TOPICAL UD Rx Instructions: APPLY TO SCALP 2-3 TIMES PER WEEK polyethylene glycol 3350 [Miralax] 17 gram Powder In Packet 17 g PO DAILY PRN (Reason: Constipation) cholecalciferol (vitamin D3) [Vitamin D3] 25 mcg (1,000 unit) Tablet 25 mcg PO Q OTHER DAY calcium carbonate 500 mg calcium (1,250 mg) Tablet 500 mg PO DAILY clopidogrel 75 mg tablet 75 mg PO DAILY melatonin 5 mg Tablet 5 mg PO HS PRN (Reason: Sleep) carbidopa-levodopa 25-100 mg tablet extended release 1 tab PO BID Held amlodipine 10 mg tablet 10 mg PO DAILY Hold Instructions: Until further recommendations from your primary care physician terazosin 1 mg capsule 1 mg PO HS Hold Instructions: Until further recommendations from your primary care physician lisinopril [Zestril] 40 mg Tablet 40 mg PO DAILY Qty: 30 0RF Hold Instructions: Until further recommendations from your primary care physician Discontinued isosorbide mononitrate 30 mg tablet extended release 24 hr 90 mg PO QAM Discharge Orders: Discharge Order (Routine); Ordered 04/08/24 Ordered By: Sid Suazo Admission Data Admit Date/Time: 03/25/24 15:16 Attending Provider: Sid Suazo Admit Provider: Tamika Gil I. Primary Care Provider: Kaz Robledo Other Providers: Delgado Thakkar [place]; Tamika Gil I.; Matthew Tanner Other Interventions: Discharge Summary Assessment (RN) Last Done: 04/08/24 11:57
== END 2024-04-08 12:55 | DRG 57 ==
LOC: ED 12:56 → 3E 15:16 → SUATTDRO 15:16 → 3E 17:58 → 1E 03-31 12:55 → 4W 04-02 19:54

== ENCOUNTER 2024-06-05 06:36 | Inpatient (IN) ==
--- OUTSIDE RECORDS SUMMARY | 2024-06-05 06:42 | External Medical Summary | Summary of Care ---
Author Name Unknown Organization [facility] Address [address] [place] [address] Phone [phone] Care Team Providers Care Supervisor Drying And Winding Name Role Phone Kaz Robledo MD Primary Care Provider [phone]- [phone] Reason for Visit * Reason Onset Date Comments Medical Nutrition Therapy 05/29/2024 Encounter Details Date Type Department Care Team (Latest Contact Info) Description 05/29/2024 3:30 PM EST Scheduled Telephone [facility], [facility] [address] [place] [facility] [place] [address] Teresa Johnson, RDN [address] [facility] [place] [id number] HTN, goal below 140/90* Allergies Active Allergy Reactions Criticality Noted Date Comments Atorvastatin Muscle pain 12/11/2016 Bee Stings 02/21/1999 Hives,intense itching,edema Gabapentin 10/02/2023 "Couldn't handle it" documented as of this encounter (statuses as of 05/29/2024) Medications CALCIUM 500 MG PO TABS Take by mouth daily. 60 Tab 0 05/02/20 10 Active NITROGLYCERIN 0.4 MG SL SUBLIndications:St able angina (HCC) 1 TAB EVERY 5 MIN NEEDED, UP TO 3 PER EPISODE 25 Tab 5 10/15/19 14 Active Additional Information Patient not taking.Reported on 04/24/2024 docusate sodium (COLACE) 100 MG Capsule Take [...] day 850 g 1 12/30/19 21 Active Melatonin 3 MG Oral Tablet Disintegrating Take 2 Tablets by mouth at bedtime. Active Triamcinolone Acetonide 0.1 % External Cream (Aristocort)Indica tions:Hand erythema Apply topically to affected area 2 times a day 45 g 03/18/20 24 Active Additional Information Patient not taking.Reported on 04/24/2024 Multivitamin Adult Oral Tablet Take 1 Tablet by mouth in the morning. 90 Tablet 3 03/18/20 Active Co Q-10 400 MG Oral Capsule Take 1 Capsule by mouth once. 04/10/20 24 Active Repatha SureClick 140 MG/ML Subcutaneous Solution Auto-injector (evolocumab) Inject 140 mg under the skin every 14 days. Remove from refrigerator 30 minutes prior to injection. 2 mL 11 5 8:50 AM EST 04/16/20 Active Citalopram Hydrobromide 20 MG Oral Tablet (CeleXA)Indication s:Major depressive disorder, recurrent episode, mild (HCC) Take 1 Tablet by mouth in the morning. 100 Tablet 5 11:15 AM EST 04/23/20 24 Active Ezetimibe 10 MG Oral Tablet (Zetia)Indications :Coronary artery disease of [place] artery of [place] heart with stable angina pectoris (HCC),Dyslipidemia , goal LDL below 100 Take 1 Tablet by mouth in the morning. 100 Tablet 3 5 8:51 AM EST 04/23/20 24 Active Fluocinonide 0.05 % External SolutionIndication s:Seborrheic dermatitis Apply to scalp daily Sunday thru as needed for redness and flaking 60 mL 2 4 4:50 PM EST 04/23/20 24 Active Isosorbide Mononitrate ER 60 MG Oral Tablet Extended Release 24 Hour (Imdur)Indications :Chronic coronary artery disease,Stable angina (HCC) Take 1 Tablet by mouth in the morning. 100 Tablet 3 4 4:50 PM EST 04/23/20 24 Active Ketoconazole 2 % External Shampoo (Nizoral)Indicatio ns:Seborrheic dermatitis Apply to scalp 2-3 times per week. 360 mL 04/23/20 24 Active Metoprolol Succinate ER 25 MG Oral Tablet Extended Release 24 Hour (toPROL XL) Take 1 Tablet by mouth at bedtime. 100 Tablet 4 4:50 PM EST 04/23/20 24 Active Aspirin 81 MG Oral Tablet Delayed ReleaseIndications :Coronary artery disease involving [place] coronary artery of [place] heart without angina pectoris Take 1 Tablet by mouth in the morning. 100 Tablet 2 4 4:50 PM EST 04/23/20 24 Active Vitamin D3 25 MCG (1000 UT) Oral Tablet (Vitamin D3) Take 1 Tablet by mouth in the morning. 100 Tablet 2 4 4:50 PM EST 04/23/20 24 Active Folic Acid 400 MCG Oral TabletIndications: Coronary artery disease involving [place] coronary artery of [place] heart without angina pectoris Take 1 Tablet by mouth in the morning. 100 Tablet 3 4 5:47 PM EST 04/23/20 24 Active Carbidopa-Levodopa ER 25-100 MG Oral Tablet Extended Release (Sinemet CR) Take 1 Tablet by mouth in the morning and 1 Tablet before bedtime. 200 Tablet 1 5 8:51 AM EST 04/23/20 24 Active Clopidogrel Bisulfate 75 MG Oral Tablet (Plavix) Take 1 Tablet by mouth in the morning. 100 Tablet 1 5 2:44 PM EST 04/23/20 24 Active Probiotic Daily Oral Capsule Take 1 Capsule by mouth in the morning. Active clonazePAM 0.5 MG Oral Tablet (KlonoPIN)Indicati ons:Adjustment disorder with mixed anxiety and depressed mood Take 1 Tablet by mouth 2 times a day as needed for Anxiety. 60 Tablet 05/23/19 25 Active documented as of this encounter (statuses as of 05/29/2024) Active Problems Problem Noted Date Diagnosed Date Orthostatic hypotension 04/10/2024 Carotid stenosis, asymptomatic, right 12/19/2023 Personal history [...] closely with cardiology [facility] Dyslipidemia, goal LDL below 100 04/15/2009 Overview (04/15/2009): Per Lipid Taxonomy. Hearing loss 07/09/2007 documented as of this encounter (statuses as of 05/29/2024) Resolved Problems Problem Noted Date Diagnosed Date [...] disorder 02/15/2012 09/03/2017 Genetic Sleep Disorder [facility] Other*[id number] 06/26/2011 12/08/2015 EXAMINATION OF PARTICIPANT I N CLINICAL TRIAL-Genomics 06/04/2009 08/20/2009 Overview (08/20/2009): Renamed Per Clinical Trials Billing Project. Study Titile: Genomic Markers for Patients with Cardiovascular Disease Project #[id number] PI: Radha Yepez MD Please call [phone] with study related questions GENOMICS CARDIO RESEARCH OTHER*[id number] 06/04/2009 06/13/2016 Overview (08/20/2009): Renamed Per Clinical Trials Billing Project. Study Titile: Genomic Markers for Patients with Cardiovascular Disease Project #[id number] PI: Radha Yepez MD Please call [phone] with study related questions Benign neoplasm of [...] as of this encounter (statuses as of 05/29/2024) Immunizations Name Administration Dates Next Due COVID-19 [...] Telephone Encounter - Teresa Johnson RDN - 05/29/2024 1:02 PM EST NUTRITION FOLLOW-UP NOTE - OUTPATIENT [facility] Name: Landen Camacho [facility] Date: 05/29/2024 Time: 1:02 PM Multiple attempts were made this date to reach Patient (via phone) with no success, therefore, Nutrition Assessment Follow Up could not be completed as scheduled this date. This dietitian left a detailed message on voice mail with purpose of call, contact info, and encouraged Patient to return call. Will reschedule Patient for the near future. Reason for Nutrition Follow-up: Decreased PO Intake/Heart Health Teresa Johnson RDN [facility] documented in this encounter Plan of Treatment Upcoming Encounters Date Type Department Care Team (Late st Contact Info) Description 06/02/2024 3:00 PM EST [facility] [address] [facility] [place] [phone] Kaz Robledo MD [address] [facility] [place] [address] 06/03/2024 4:00 PM EST [facility] Visit [facility] [address] [place] [address] Aron Schmid, GUS [address] [place] [address] 06/23/2024 3:00 PM EST Office Visit Neurology [facility] [place] [address] [place] [address] Darron Calvillo MD [address] [place], [place] [id number] 07/02/2024 11:00 AM EST Telemedicine Psychology [place] [address] [place] [address] TiffAixa Mahi, UTILIZATION REVIEW RN [address] [place] [address] 07/07/2024 11:30 AM EST Scheduled Telephone [facility], [facility] [address] [place] [address] Teresa Johnson, TRAVISN [address] [place] [address] 07/08/2024 10:30 AM EST Office Visit Cardiology, [facility] [address] [place] [address] Marcia Collins CRNP [address] [place] [address] 07/28/2024 11:30 AM EDT Telemedicine Psychology [place] AnishaJose G [address] [place] [address] Page John UTILIZATION REVIEW RN [address] [place] [address] 10/24/2024 2:00 PM EDT Office [facility] [address] [place] [address] Mitchell Mack MD [address] [place] [address] Scheduled Procedures Name Priority Associated Diagnoses Date/Ti me COLONOSCOPY FLEXIBLE PROXIMAL DIAGNOSTIC Recall History of colon polyps Health Maintenance Due Date Last Done Comments Alpha-1 Antitrypsin 1963 Colonoscopy 03/20/2020 03/20/2019, 03/07, 10/15/2017, Additional history exists Adult Wellness Visit 10/27/2022 10/27/2021, 10/16/19 21 *COPD SEVERITY VERIFIED BY PFT 05/28/2023 COVID-19 Vaccine ( season) 2024 02/15/2022, 02/15/2022, 10/06/2021, Additional history exists Depression Monitoring 01/10/2024 01/09/2023 HbA1c 10/20/2024 10/21/2023, 07/05, 07/05/2022, Additional history exists GFR 10/24/2024 10/25/2023, 10/05, 10/23/2023, Additional history exists O2 ASSESSMENT COMPLETED IN PAST YEAR FOR COPD 04/24/2025 04/24/2024 Albumin/Creatinine Ratio 07/17/2026 07/18/2023, 09/05 DTap/Tdap Vaccines (3 - Td or Tdap) 08/26/2028 08/26/2018, 01/27/2008 Pneumococcal Vaccine: 50+ Years Completed 02/02/2015, 01/24/2010, 03/02/2001 RETIRED - COLONOSCOPY-ANNUAL AGES 18-100 Discontinued 03/20/2019, 03/20/2019, 10/15/2017, Additional history exists Zoster Vaccines Completed 06/07/2019, 12/2018, 02/03/2009 Influenza Vaccine (FLU shot) Completed 03/26/2024, 04/24/2023, 01/10/2022, Additional history exists HPV (Gardasil) Vaccine Aged Out No lo [...] Coronary atherosclerosis of unspecified type of vessel, [place] or graft HTN, goal below 140/90 Unspecified essential hypertension Parkinson's disease, unspecified whether dyskinesia present, unspecified whether manifestations fluctuate (HCC) PVD (peripheral vascular disease) (HCC) Peripheral vascular disease, unspecified Adjustment disorder with mixed anxiety and depressed mood Advanced care planning/counseling discussion Other specified counseling HTN, goal below 140/90- Primary Unspecified essential hypertension documented in this encounter Advance Directives Documents on File Type Date Recorded Patient Homicide Investigator Deisi LIANG 04/22/2024 signed on 04/21 * Full Code (Latest Code Status on File) Date Activated Date Inactivated Comments 10/20/2023 10:03 AM 10/26/2023 1:07 AM This order reflects the patients wishes and were consensually agreed upon. Question Answer Comments Discussion of Advance Directives occurred with: Patient Care Teams Supervisor Drying And Winding Relationship Specialty Start Date End Date Kaz Robledo MD PCP - General Family Medicine 03/05/17 documented as of this encounter
--- OUTSIDE RECORDS SUMMARY | 2024-06-05 06:42 | External Medical Summary | Summary of Care ---
Author Name Unknown Organization [facility] Address [address] [place] [address] Phone [phone] Care Team Providers Care Senior Bookkeeper Name Role Phone Kaz Robledo MD Primary Care Provider [phone]- [phone] Reason for Visit * Reason Onset Date Comments Advice 02/28/2024 Encounter Details Date Type Department Care Team (Late st Contact Info) Description 02/28/2024 Telephone Cardiology, [facility] [address] [place] [address] Marcia Collins CRNP [address] [place] [address] Advice Allergies Active Allergy Reactions Criticality Noted [...] PER EPISODE 25 Tab 5 014 Active Additional Information Patient not taking.Reported on [...] a day 850 g 1 021 Active Melatonin 3 MG Oral Tablet Disintegrating Take 2 Tablets by mouth at bedtime. Active LOW-DOSE ASPIRIN 81 MG PO TABS [...] 1:13 PM EDT 023 2023 Discontinued(R efill) Fluocinonide 0.05 % External SolutionIndicatio ns:Seborrheic dermatitis Apply to scalp daily Sunday thru as needed for redness and flaking 60 mL 2 05/28/19 24 12:57 PM EST 024 2023 Discontinued(R efill) Ketoconazole 2 % External Shampoo (Nizoral)Indicati ons:Seborrheic dermatitis Apply to scalp 2-3 x's per week. 360 mL 5 05/28/19 24 12:57 PM EST 024 2023 Discontinued(R efill) amLODIPine Besylate 10 MG Oral Tablet (Norvasc) TAKE ONE TABLET BY MOUTH EVERY MORNING 90 Tablet 3 01/12/20 24 9:15 AM EDT 024 2023 Discontinued(E nd of Procedure) Clopidogrel Bisulfate 75 MG Oral Tablet (Plavix) Take 1 Tablet by mouth in the morning. Do not start before November 24, 2023. 90 Tablet 3 03/12/20 24 10:52 AM EST 024 2023 Discontinued(R efill) Terazosin HCl 1 MG Oral Capsule (Hytrin)Indicatio ns:HTN, goal below 140/90 take one capsule by mouth at bedtime 90 Capsule 3 12/25/19 24 11:26 AM EDT 024 2023 Discontinued(E nd of Procedure) Isosorbide Mononitrate ER 30 MG Oral Tablet Extended Release 24 Hour (Imdur)Indication s:Chronic coronary artery disease,Stable angina (HCC) Take 3 Tablets by mouth in the morning. 300 Tablet 3 02/12/20 24 11:34 AM EDT 024 2023 Discontinued Repatha SureClick 140 MG/ML Subcutaneous Solution Auto-injector (evolocumab) Inject 140 mg under the skin every 14 days. Remove from refrigerator 30 minutes prior to injection. 2 Each 11 024 2023 Discontinued(R efill) clonazePAM 0.5 MG Oral Tablet (KlonoPIN)Indicat ions:Sleep disorder,Adjustme nt disorder with mixed anxiety and depressed mood TAKE 1 OR 2 TABLETS BY MOUTH AT BEDTIME for sleep 60 Tablet 2023 Discontinued(R efill) Carbidopa-Levodop a ER 25-100 MG Oral Tablet Extended Release (Sinemet CR) Take 1 Tablet by mouth in the morning and 1 Tablet before bedtime. 180 Tablet 3 03/03/20 24 11:02 AM EDT 2023 Discontinued(R efill) documented as of this encounter (statuses as of 05/29/2024) Active Problems Problem Noted Date Diagnosed Date Orthostatic hypotension 04/10/2024 Carotid stenosis, asymptomatic, right 12/19/[address] (myocardial infarction) 0 10/20/2023 Overview (12/12/2023): 10/20/23 [...] disorder 02/15/2012 09/03/2017 Genetic Sleep Disorder Res[facility] Other*[id number] 06/26/2011 12/08/2015 EXAMINATION OF PARTICIPANT I N CLINICAL TRIAL-Genomics 06/04/2009 08/20/2009 Overview (08/20/2009): Renamed Per Clinical Trials Billing Project. Study Titile: Genomic Markers for Patients with Cardiovascular Disease Project #[id number] PI: Radha Yepez MD Please call [phone] with study related questions GENOMICS CARDIO RESEARCH OTHER*[id number] 06/04/2009 06/13/2016 Overview (08/20/2009): Renamed Per Clinical Trials Billing Project. Study Titile: Genomic Markers for Patients with Cardiovascular Disease Project #[id number] PI: Radha Yepez MD Please call [phone] with study related questions Benign neoplasm of [...] 30 Mcg, IM, 12 yrs and above (KnowNow) 02/15/2022 H1N1 2009 Influenza, IM 05/10/2009 Pneumococcal [...] 9:22 AM ALLIET Nba Estes RN * Do you have serious difficulty walking or climbing stairs? (5 years old or older) Answer Date of Assessment Author No 10/20/2023 9:22 AM ALLIET Nba Estes RN * Do you have [...] Date Author No 10/20/2023 9:22 AM EDT Nab Estes RN documented in this encounter Miscellaneous Notes * Telephone Encounter - Pauline Meredith CMA - 03/03/2024 8:49 AM EDT Sent MyG reply to patient. * Telephone Encounter - Marcia Collins CRNP - 03/01/2024 11:55 AM EDT Please advise Landen (and Tiffanie) that the medication they are wanting to describe is to help treat parkinson symptoms, but yes may impact blood pressure. I am ok with him starting it given his recent parkinson symptoms and encourage him to continue routine BP monitoring after his morning meds just aswe have been doing as we may find that we need to make adjustments depending on how he tolerating the new drug. Thank you for the update and I am hopeful this med helps him. Marcia * Telephone Encounter - Goldie Zambrano, HENRIETTA - 02/28/2024 10:26 AM EDT Person calling: Tiffanie Relationship to patient: Daughter Phone/Fax to return call: [phone] Reason for call(brief): Advice Pharmacy: [facility] Provider Name: Marcia DE LA GARZA Detailed message to office: Pt's daughter Tiffanie is requesting a call back from Marcia DE LA GARZA or nurse. Tiffanie states thatpatient was seen this morning by Dr. Calvillo in Neurology and was recommended to start a new medication for blood pressure Carbidopa- Levodopa ER 25-100 mg. Tiffanie would like to know if Marcia DE LA GARZA approves on patient taking medication. Pt has not yet received medication. Please advise. documented in this encounter Plan of Treatment Upcoming Encounters Date Type Department Care Team (Late st Contact Info) Description 06/02/2024 3:00 PM EST Office Visit [facility] [address] [facility] [place] [phone] Kaz Robledo MD [address] [place] [address] 06/03/2024 4:00 PM EST [facility] Visit [facility], [facility] [address] [place] [address] Aron Schmid, RN [address] [facility] [place] [address] 06/23/2024 3:00 PM EST Office Visit Neu[facility] [address] [place] [address] Darron Calvillo MD [address] [place] [address] 07/02/2024 11:00 AM EST Telemedicine Psychology [facility] [place] [address] [place] [address] Aixa Matthew, VOCATIONAL AIDE [address] [place] [address] 07/07/2024 11:30 AM EST Scheduled Telephone [facility], [facility] [address] [facility] [place] [address] Teresa Johnson RDN [address] [facility] [place] [address] 07/08/2024 10:30 AM EST Office Visit Cardiology, [facility] [address] [place] [address] Marcia Collins CRNP [address] [place] [address] 07/28/2024 11:30 AM EDT Telemedicine Psychology [facility] [place] [address] [place] [address] Page John LCSW [address] [place] [address] 10/24/2024 2:00 PM EDT Office Visit Dermat[facility] [address] [facility] [address] Mitchell Mack MD [address] [facility] [place] [address] Scheduled Procedures Name Priority Associated Diagnoses Date/Ti [...] COPD 04/24/2025 04/24/2024 Albumin/Creatinine Ratio 07/17/2026 07/18/2023, 05/10/2022 DTap/Tdap Vaccines [...] filedocumented as of this encounter Advance Directives Documents on File Type Date Recorded Patient Tissue Coordinator Expl anation POLST 04/22/2024 signed on 04/21 * Full Code (Latest Code Status on File) Date Activated Date Inactivated Comments 10/20/2023 10:03 AM 10/26/2023 1:07 AM This order reflects the patients wishes and were consensually agreed upon. Question Answer Comments Discussion of Advance Directives occurred with: Patient Care Teams Senior Bookkeeper Relationship Specialty Start Date End Date Kaz Robledo MD PCP - General Family Medicine 03/05/17 documented as of this encounter
--- OUTSIDE RECORDS SUMMARY | 2024-06-05 06:42 | External Medical Summary | Summary of Care ---
Author Name Unknown Organization [facility] Address [address] [place] [address] Phone [phone] Care Team Providers Care School Speech Language Pathologist Name Role Phone Kaz Robledo MD Primary Care Provider [phone]- [phone] Reason for Visit * Reason Onset Date Comments Nurse Documentation 06/02/2024 Encounter Details Date Type Department Care Team (Late st Contact Info) Description 06/02/2024 Telephone [facility] [address] [facility] [place] [address] Kaz Robledo MD [address] [place] [address] Nurse Documentation Allergies Active Allergy Reactions Criticality Noted Date Comments Atorvastatin Muscle pain 12/11/2016 Bee Stings 02/21/1999 Hives,intense itching,edema Gabapentin 10/02/2023 "Couldn't handle it" documented as of this encounter (statuses as of 06/02/2024) Medications CALCIUM 500 MG PO TABS Take [...] mL 11 5 8:50 AM EST 04/16/20 24 Active Citalopram Hydrobromide 20 MG Oral Tablet (CeleXA)Indication s:Major depressive disorder, recurrent episode, mild (HCC) Take 1 Tablet by mouth in the morning. 100 Tablet 5 11:15 AM EST 04/23/20 24 Active Ezetimibe 10 MG Oral Tablet (Zetia)Indications :Coronary artery disease of [place] artery of [place] heart with stable angina pectoris (HCC),Dyslipidemia , [...] Tablet Delayed ReleaseIndications :Coronary artery disease involving [place] coronary artery of [place] heart without angina pectoris Take 1 Tablet by mouth in the morning. 100 Tablet 2 4 4:50 PM EST 04/23/20 24 Active Vitamin D3 25 MCG (1000 UT) Oral Tablet (Vitamin D3) Take 1 Tablet by mouth in the morning. 100 Tablet 2 4 4:50 PM EST 04/23/20 24 Active Folic Acid 400 MCG Oral TabletIndications: Coronary artery disease involving [place] coronary artery of [place] heart without angina pectoris Take 1 Tablet [...] as of this encounter (statuses as of 06/02/2024) Active Problems Problem Noted Date Diagnosed Date Orthostatic hypotension 04/10/2024 Carotid stenosis, asymptomatic, right 12/19/2023 Personal history of [place] (myocardial infarction) 0 10/20/2023 Overview (12/12/2023): 10/20/23 [...] left lower back, chest 11/15 and neck 2001 Controlled substance agreement signed 04/17/2017 Generalized osteoarthritis [...] closely with cardiology [facility] Dyslipidemia, goal LDL below 100 04/15/2009 Overview (04/15/2009): Per Lipid Taxonomy. Hearing loss 07/09/2007 documented as of this encounter (statuses as of 06/02/2024) Resolved Problems Problem Noted Date Diagnosed Date [...] disorder 02/15/2012 09/03/2017 Genetic Sleep Disorder Resea [facility] Other*[id number] 06/26/2011 12/08/2015 EXAMINATION OF PARTICIPANT I N CLINICAL TRIAL-Genomics 06/04/2009 08/20/2009 Overview (08/20/2009): Renamed Per Clinical Trials Billing Project. Study Titile: Genomic Markers for Patients with Cardiovascular Disease Project #[id number] PI: Radha Yepez MD Please call [phone] with study related questions GENOMICS CARDIO RESEARCH OTHER*[id number] 06/04/2009 06/13/2016 Overview (08/20/2009): Renamed Per Clinical Trials Billing Project. Study Titile: Genomic Markers for Patients with Cardiovascular Disease Project #[id number] PI: Radha Yepez MD Please call [phone] with study related questions Benign neoplasm of [...] as of this encounter (statuses as of 06/02/2024) Immunizations Name Administration Dates Next Due COVID-19 [...] Miscellaneous Notes * Telephone Encounter - Shreya Castellano, MED ASSIST - 06/02/2024 1:15 PM EST Received Fax for BFPROVIDERS: Dr. Kaz Robledo ORDER received from [facility] and FAXED documented in this encounter Plan of Treatment Upcoming Encounters Date Type Department Care Team (Late st Contact Info) Description 06/02/2024 3:00 PM EST Office Visit [facility] [address] [facility] [place] [address] Kaz Robledo MD [address] [facility] [place] [address] 06/03/2024 4:00 PM EST Home Visit [facility], [facility] [address] [facility] [place] [address] Aron Schmid, GUS 132 [facility] [address] 06/23/2024 3:00 PM EST Office Visit Neurology [facility] [address] [place] [address] Darron Calvillo MD [address] [place] [address] 07/02/2024 11:00 AM EST Telemedicine Psychology Jose G Coleman [address] [place] [address] Aixa Matthew, WEIGHT LOSS SALES CONSULTANT [address] [place] [address] 07/07/2024 11:30 AM EST Scheduled Telephone [facility], [facility] [address] [facility] [place] [address] Teresa Johnson RDN [address] [facility] [place] [address] 07/08/2024 10:30 AM EST Office Visit Cardiology, Health system [address] [facility] [place] [address] Marcia Collins CRNP [address] [place] [address] 07/28/2024 11:30 AM EDT Telemedicine Psychology [place] [address] [place] [address] Page John LCSW [address] [place] [address] 10/24/2024 2:00 PM EDT Office Visit Dermatology [facility] 200 [facility] [place] [address] Mitchell Mack MD [address] [place] [address] Scheduled Procedures Name Priority Associated Diagnoses Date/Ti [...] Documents on File Type Date Recorded Patient Tying Machine Operator Lumber Expl anation POLST 04/22/2024 signed on 04/21 * Full Code (Latest Code Status on File) Date Activated Date Inactivated Comments 10/20/2023 10:03 AM 10/26/2023 1:07 AM This order reflects the patients wishes and were consensually agreed upon. Question Answer Comments Discussion of Advance Directives occurred with: Patient Care Teams School Speech Language Pathologist Relationship Specialty Start Date End Date Kaz Robledo MD PCP - General Family Medicine 03/05/17 documented as of this encounter
--- OUTSIDE RECORDS SUMMARY | 2024-06-05 06:43 | External Medical Summary | Summary of Care ---
Author Name Unknown Organization [facility] Address [address] [place] [address] Phone [phone] Care Team Providers Care Disabilities Services Officer Name Role Phone Kaz Robledo MD Primary Care Provider +1- [phone] Encounter Details Date Type Department Care Team (Late st Contact Info) Description 05/26/2024 Population Health External Data Unspecified Department Allergies Active Allergy Reactions Criticality Noted Date Comments Atorvastatin Muscle pain 12/11/2016 Bee Stings 02/21/1999 Hives,intense itching,edema Gabapentin 10/02/2023 "Couldn't handle it" documented as of this encounter (statuses as of 05/26/2024) Medications CALCIUM 500 MG PO TABS Take [...] morning. 90 Tablet 3 03/18/20 24 Active Co Q-10 400 MG Oral Capsule [...] Oral Tablet (Zetia)Indications :Coronary artery disease of [place] artery of [place] heart with stable angina pectoris (HCC),Dyslipidemia , [...] Tablet Delayed ReleaseIndications :Coronary artery disease involving [place] coronary artery of [place] heart without angina pectoris Take 1 Tablet by mouth in the morning. 100 Tablet 2 4 4:50 PM EST 04/23/20 24 Active Vitamin D3 25 MCG (1000 UT) Oral Tablet (Vitamin D3) Take 1 Tablet by mouth in the morning. 100 Tablet 2 4 4:50 PM EST 04/23/20 24 Active Folic Acid 400 MCG Oral TabletIndications: Coronary artery disease involving [place] coronary artery of [place] heart without angina pectoris Take 1 Tablet [...] as of this encounter (statuses as of 05/26/2024) Active Problems Problem Noted Date Diagnosed Date [...] as of this encounter (statuses as of 05/26/2024) Resolved Problems Problem Noted Date Diagnosed Date [...] disorder 02/15/2012 09/03/2017 Genetic Sleep Disorder Resea [facility] Other*[id number] 06/26/2011 12/08/2015 EXAMINATION OF PARTICIPANT I N CLINICAL TRIAL-Genomics 06/04/2009 08/20/2009 Overview (08/20/2009): Renamed Per Clinical Trials Billing Project. Study Titile: Genomic Markers for Patients with Cardiovascular Disease Project #[id number] PI: Radha Yepez MD Please call [phone] with study related questions GENOMICS CARDIO RESEARCH OTHER*[id number] 06/04/2009 06/13/2016 Overview (08/20/2009): Renamed Per Clinical Trials Billing Project. Study Titile: Genomic Markers for Patients with Cardiovascular Disease Project #[id number] PI: Radha Yepez MD Please call [phone] with study related questions Benign neoplasm of [...] as of this encounter (statuses as of 05/26/2024) Immunizations Name Administration Dates Next Due COVID-19 [...] Care Team (Late st Contact Info) Description 05/29/2024 3:30 PM EST Scheduled Telephone [facility], [facility] [address] [place] [address] Teresa Johnson, RDN [address] [facility] [place] [address] 06/02/2024 3:00 PM EST Office Visit [facility], [facility] [address] [place] [id number] Kaz Robledo MD [address] [facility] [place] [address] 06/03/2024 4:00 PM EST Home Visit [facility], [facility] [address] [facility] [place] [address] Aron Schmid, GUS [address] [place] [address] 06/11/2024 12:30 PM EST Telemedicine Psychology [place] [address] [place] [address] Page John COMPUTER LAB ASSISTANT [address] [place] [address] 06/23/2024 3:00 PM EST Office Visit Neurology [facility] [address] [facility] [place] [place] [address] Darron Calvillo MD [address] [place] [address] 07/02/2024 11:00 AM EST Telemedicine Psychology [address] [place] [address] [place] [address] Aixa Matthew, COMPUTER LAB ASSISTANT [address] [place] [address] 07/08/2024 10:30 AM EST Office Visit Cardiology, Health system [address] [facility] [place] [address] Marcia Collins CRNP [address] [facility] [address] 10/24/2024 2:00 PM EDT Office Visit Dermatology [facility] [address] [place] [address] Mitchell Mack MD [address] [place] [address] Scheduled Procedures Name Priority Associated Diagnoses Date/Ti [...] Documents on File Type Date Recorded Patient Width Stripper Deisi LIANG 04/22/2024 signed on 04/21 * Full Code (Latest Code Status on File) Date Activated Date Inactivated Comments 10/20/2023 10:03 AM 10/26/2023 1:07 AM This order reflects the patients wishes and were consensually agreed upon. Question Answer Comments Discussion of Advance Directives occurred with: Patient Care Teams Disabilities Services Officer Relationship Specialty Start Date End Date Kaz Robledo MD PCP - General Family Medicine 03/05/17 documented as of this encounter
--- NOTE | 2024-06-05 07:29 | Emergency Department Note ---
Impression & Plan NSTEMI (non-ST elevated myocardial infarction), CAD (coronary artery disease), Chest pain, Elevated troponin I level ED Provider Note NAME: BECKY MCCANN AGE: 79 SEX: M : 1945 ARRIVES VIA: Ambulance INFORMANT: Patient ED PROVIDER(S): Donnie Butts DO CHIEF COMPLAINT: chest pain HPI: Patient is a 79-year-old male who presents ER for chest pain with a past medical history of CAD, elevated troponin, Parkinson's and hyperlipidemia and hypertension. Patient presents to the ER for chest pain which started earlier this morning around 430 this morning. Was central in nature without radiation and felt like tightness and pressure. Patient did take nitro x 2 with minimal improvement. He was given additional nitro and aspirin per EMS and this resolved. He was also given a dose of morphine with complete resolution. Denies any belly pain nausea vomiting or diarrhea. ADDITIONAL HISTORY OBTAINED: Per HPI Chronic Medical/Social Conditions Affecting Care: Per HPI PAST MEDICAL HISTORY:See Below PAST SURGICAL HISTORY:See Below FAMILY HISTORY:See Below SOCIAL HISTORY:See Below HOME MEDICATIONS:See Below ALLERGIES:See Below VITALS:See Below PHYSICAL EXAMINATION: GENERAL: Sitting up in bed, alert, well appearing, well nourished, no distress, non-toxic EYE EXAM: normal conjunctiva. PERRL and EOM's grossly intact. OROPHARYNX: mucous membranes are moist LUNGS: Clear to auscultation. Normal chest wall mechanics HEART: no murmurs, S1 normal and S2 normal ABDOMEN: abdomen soft, non-tender, normo-active bowel sounds, no masses, no rebound or guarding. BACK: Back is symmetrical on inspection and there is no deformity, no midline tenderness, no CVA tenderness. SKIN: no rashes and no bruising UPPER EXTREMITIES: upper extremities are grossly normal. LOWER EXTREMITIES: No pitting edema. NEURO EXAM: Normal sensorium, cranial nerves II-XII grossly intact, normal speech, no gross weakness of arms, no gross weakness of legs. MEDICAL DECISION MAKING: Patient is a 79-year-old male with a past medical history of CAD and previous NH who presents ER for chest pain. IV was established blood work was obtained. Patient was significant hypertensive with systolics of 200. Labs show no significant leukocytosis or anemia. BMP with LFTs bilirubin was unremarkable. Initial troponin was 680. Lipase was normal. Patient received aspirin nitro prior to arrival. He was pain-free upon arrival to the ER. EKG was unremarkable. Chest x-ray with a questionable infiltrate at the right base. Case was discussed with the hospitalist for further evaluation, management and treatment. As patient remained pain-free throughout this stay in the ER troponins and there is no EKG changes that held on heparin at this time. Consults/Care Managements Discussions: Per MDM Triage Nursing notes reviewed. Limited review of prior medical records performed Vital Signs: reviewed and remarkable for HTN Differential diagnosis: Cardiac ischemia, aortic dissection, pulmonary embolism, pneumothorax, pneumonia, pericarditis, myocarditis, esophageal rupture, GERD, cholecystitis, pancreatitis, musculoskeletal, as well as other pathologies. ER treatment provided: See below Diagnostics interpreted by me include EKG and cardiac monitoring as listed below: -Cardiac Monitoring: An order was placed for continuous cardiac monitoring. The monitor shows a rate of 70 with sinus rhythm. -ECG: Sinus rhythm rate 71 First-degree AV block Left axis No PVCs QTc 425 -Laboratory studies:Interpreted by me as stated above in MDM and shown below. Imaging studies: Xrays: As interpreted by me: Portable AP upright 1 view of the chest shows questionable infiltrate at the right base CTs show: Nono Procedures: None Critical Care: None Past Med/Surg History Problem List (Updated 06/05/24 @ 11:18 by Jennifer Noel PA-C) NSTEMI (non-ST elevated myocardial infarction) SOB (shortness of breath) on exertion Parkinson's disease Elevated troponin I level (Acute) Chest pain (Acute) Anxiety Depression Hyperlipidemia CAD (coronary artery disease) Peripheral arterial disease Hypertension (Chronic) Medical History (Updated 06/05/24 @ 11:18 by Jennifer Noel PA-C) Multiple vessel coronary artery disease Atrial flutter Inguinal hernia Surgical History S/P tonsillectomy Family History Other Asthma Denies family history of Hypertension Social History Smoking Status: Former smoker Tobacco Type: Cigarettes Second Hand Exposure: No; Do You Dip or Chew Tobacco: No; Hx Alcohol Use: No Hx Substance Use: No Preferred Language: Zimbabwean Communication Ability: Effective Store Administrative Assistant Required: No Beliefs That Will Affect Care: None Current Living Situation: Alone Other Information That Helps Us Care for You: No Feels Safe at Home: Yes Safety Concerns: Feels Safe At This Time Assistive Devices: None Allergies Allergies Allergy/AdvReac Type Severity Reaction Status Date / Time bee venom protein (honey bee) Allergy Severe SWELLING, Verified 05/07/24 00:48 INTENSE ITCHING, HIVES gabapentin Allergy Unknown Unknown Verified 05/07/24 00:48 atorvastatin AdvReac Intermediate MUSCLE PAIN Verified 05/07/24 00:48 carbidopa [From Sinemet] AdvReac Intermediate Unknown/Family Verified 05/07/24 00:48 says only Sinemet, haven't tried Sinemet CR. levodopa [From Sinemet] AdvReac Intermediate Unknown/Family Verified 05/07/24 00:48 says only Sinemet, haven't tried Sinemet CR. Home Meds Home Medications Medication Instructions Recorded Confirmed nitroglycerin 0.4 mg sublingual 0.4 mg sublingual DIRECTED PRN 01/17/13 06/05/24 tablet (Nitrostat) Chest Pain #0 BTLS multivitamin 1 tab PO DAILY #0 tabs 09/20/14 06/05/24 aspirin 81 mg tablet,delayed 81 mg PO QAM 90 days #90 tabs 04/19/17 06/05/24 release (Pollo Low Dose Aspirin) coenzyme Q10 400 mg capsule (Co 400 mg PO DAILY 05/15/19 06/05/24 Q-10) docusate sodium 100 mg capsule 100 mg PO DAILY PRN Constipation 05/15/19 06/05/24 folic acid 400 mcg tablet 400 mcg PO QAM 05/15/19 06/05/24 metoprolol succinate 25 mg 25 mg PO HS 05/15/19 06/05/24 tablet,extended release 24 hr clonazepam 0.5 mg tablet (Klonopin) 0.5 mg PO Q12H PRN Anxiety #0 tabs 11/25/19 06/05/24 ketoconazole 2 % topical cream 1 appln topical UD 11/25/19 06/05/24 cholecalciferol (vitamin D3) 25 25 mcg PO QAM 02/05/22 06/05/24 mcg (1,000 unit) tablet (Vitamin D3) polyethylene glycol 3350 17 gram 17 g PO DAILY Constipation 02/05/22 06/05/24 oral powder packet (Miralax) calcium carbonate 500 mg PO DAILY 04/24/22 06/05/24 citalopram 20 mg tablet 20 mg PO QAM #0 tabs 12/14/22 06/05/24 carbidopa ER 25 mg-levodopa 100 mg 1 tab PO BID 03/25/24 06/05/24 tablet,extended release clopidogrel 75 mg tablet 75 mg PO QAM 03/25/24 06/05/24 diclofenac sodium 1 % topical gel 4 g topical QID 05/07/24 06/05/24 evolocumab 140 mg/mL subcutaneous 140 mg subcut .Q14 DAYS 05/07/24 06/05/24 pen injector (Neha Carter) ezetimibe 10 mg tablet 10 mg PO QAM 05/07/24 06/05/24 fluocinonide 0.05 % topical 1 applic topical DAILY PRN Skin 05/07/24 06/05/24 solution Irritation ketoconazole 2 % topical cream 1 applic topical .2-3 TIMES WEEKLY 05/07/24 06/05/24 melatonin 3 mg tablet 6 mg PO HS 05/07/24 06/05/24 triamcinolone acetonide 0.1 % 1 applic topical BID 05/07/24 06/05/24 topical cream Previous Rx's Medication Instructions Recorded isosorbide mononitrate 60 mg 60 mg PO QAM #30 tabs 04/08/24 tablet,extended release 24 hr Results & Data (ED) Vital Signs Vital Signs - 24 hr 06/05/24 06:44 06/05/24 06:44 06/05/24 06:44 Temperature 36.7 C Temperature Source Oral Pulse Rate 69 Pulse Rate [Left Finger] Pulse Rate from SpO2 Sensor Pulse Rhythm [Left Finger] Pulse Strength [Left Finger] Respiratory Rate 20 Respiratory Effort / Characteristics Non-Labored Respiratory Depth Normal Respiratory Pattern Blood Pressure 200/90 H Blood Pressure [Left Arm] Blood Pressure Mean 126 Blood Pressure Mean [Left Arm] Blood Pressure Position Lying Blood Pressure Position [Left Arm] Pulse Oximetry 94 Oxygen Delivery Method Room Air Room Air Room Air Sepsis Recent Fever Within 48 Hours No Sepsis New/Unexplained Change in Mental Status N/A Sepsis Action Taken by Nursing No Action Required 06/05/24 07:28 06/05/24 07:29 06/05/24 08:38 Temperature Temperature Source Pulse Rate 66 Pulse Rate [Left Finger] 66 67 Pulse Rate from SpO2 Sensor Pulse Rhythm [Left Finger] Regular Regular Pulse Strength [Left Finger] Normal Normal Respiratory Rate 20 17 Respiratory Effort / Characteristics Non-Labored Spontaneous Non-Labored Spontaneous Respiratory Depth Normal Normal Respiratory Pattern Regular Regular Blood Pressure Blood Pressure [Left Arm] 188/77 H 144/77 H Blood Pressure Mean Blood Pressure Mean [Left Arm] 114 99 Blood Pressure Position Blood Pressure Position [Left Arm] Sitting Sitting Pulse Oximetry 95 97 Oxygen Delivery Method Room Air Room Air Sepsis Recent Fever Within 48 Hours Sepsis New/Unexplained Change in Mental Status Sepsis Action Taken by Nursing 06/05/24 09:00 06/05/24 09:00 Temperature Temperature Source Pulse Rate 66 Pulse Rate [Left Finger] Pulse Rate from SpO2 Sensor 66 Pulse Rhythm [Left Finger] Pulse Strength [Left Finger] Respiratory Rate 22 Respiratory Effort / Characteristics Respiratory Depth Respiratory Pattern Blood Pressure 109/66 Blood Pressure [Left Arm] Blood Pressure Mean 84 Blood Pressure Mean [Left Arm] Blood Pressure Position Blood Pressure Position [Left Arm] Pulse Oximetry 94 Oxygen Delivery Method Sepsis Recent Fever Within 48 Hours Sepsis New/Unexplained Change in Mental Status Sepsis Action Taken by Nursing Laboratory Data 06/05/24 07:42 06/05/24 07:42 Lab Results 06/05/24 06/05/24 Range/Units 07:42 09:35 WBC 8.54 (4.8-10.8) K/ul RBC 4.21 L (4.70-6.10) M/uL Hgb 12.9 L (14.0-18.0) g/dl Hct 37.4 L (42.0-52.0) % MCV 88.8 (80.0-100.0) fL MCH 30.6 (25.0-34.0) pg MCHC 34.5 (32.0-36.0) g/dL RDW Std Deviation 41.0 (36.4-46.3) fL RDW Coeff of Lanre 12.6 (11.5-14.5) % Plt Count 201 (130-400) K/uL MPV 10.7 (9.4-12.4) fL Immature Gran % (Auto) 0.2 % Neut % (Auto) 78.2 % Lymph % (Auto) 11.8 % Reynolds % (Auto) 7.0 % Eos % (Auto) 1.9 % Baso % (Auto) 0.9 % Neut # (Auto) 6.67 H (1.40-6.50) K/uL Lymph # (Auto) 1.01 L (1.20-3.40) K/uL Reynolds # (Auto) 0.60 H (0.11-0.59) K/uL Eos # (Auto) 0.16 (0.00-0.50) K/uL Baso # (Auto) 0.08 (0.00-0.20) K/uL Immature Gran # (Auto) 0.02 (0.01-0.20) K/uL PT 9.9 (9.0-12.0) Seconds INR 0.9 (0.9-1.1) APTT 33 H (21-31) Seconds PTT Ratio 1.2 Sodium 138 (136-145) mmol/L Potassium 4.3 (3.5-5.1) mmol/L Chloride 105 (98-107) mmol/L Carbon Dioxide 27 (21-32) mmol/L Anion Gap 6 (3-11) BUN 27 H (6-23) mg/dl Creatinine 0.88 (0.6-1.4) mg/dl Est Cr Clr Drug Dosing 81.8 ml/min eGFR 87.47 BUN/Creatinine Ratio 30.7 H (10-20) Glucose 117 H (70-99(Fasting)) mg/dl Calcium 9.0 (8.6-10.3) mg/dl Total Bilirubin 0.2 (0.2-1.0) mg/dl AST 22 (13-39) U/L ALT 14 (7-52) U/L Alkaline Phosphatase 88 (34-104) U/L Troponin I High Sens 636.0 H* 2868.7 H* D (0-20) pg/ml Total Protein 6.4 (6.0-8.3) gm/dl Albumin 3.8 (3.4-5.0) gm/dl Globulin 2.6 (2.5-4.0) gm/dl Albumin/Globulin Ratio 1.5 (0.9-2) Lipase 16 (11-82) U/L Administered Medications Heparin Sodium/Dextrose (Heparin 41101 Unit/500 Ml) 25,000 units in 500 mls @ 31 mls/hr IV .Q16H8M PHUONG; Protocol Stop: 07/05/24 10:29 Last Admin: 06/05/24 11:22 Dose: 1,550 units/hr, 31 mls/hr Documented By: DEANNE Co-signed By: Discontinued Medications Clopidogrel Bisulfate (Clopidogrel Bisulfate 75 Mg Tab) 75 mg PO NOW ONE Stop: 06/05/24 10:58 Last Admin: 06/05/24 11:16 Dose: 75 mg Documented By: DEANNE Heparin Sodium/Dextrose (Heparin Iv Adult Wt-Based Standard *No* Initial Bolus Protocol) 1 each IV ONE STA; Protocol Stop: 06/05/24 10:06 Last Admin: 06/05/24 11:43 Dose: Not Given Documented By: DEANNE Imaging Data Radiologist's Impression: Chest X-Ray 06/05/24 06:59 EXAM: XR chest 1V portable CLINICAL HISTORY: CHEST PAIN. TECHNIQUE: An X-ray image of the chest is obtained in AP projection. COMPARISON: 03/25/2024 FINDINGS: Pulmonary Parenchyma: A suggestion of faint infiltrates in the right lung lower zone. Unchanged prominence of bronchovascular markings noted bilaterally. Findings could be related to pulmonary congestion. No evidence of consolidation or collapse. No pulmonary nodules are identified. No evidence of pleural effusion or pleural thickening. Heart and Mediastinum: Heart size and shape are normal. No mediastinal widening or masses. No hilar or mediastinal lymphadenopathy. Bony Thorax: Bony thorax appears intact without fractures or deformities. Soft Tissues: Soft tissues overlying the chest wall are unremarkable. IMPRESSION: 1. A suggestion of faint infiltrates in the right lung lower zone. Please correlate clinically. 2. Unchanged prominence of bronchovascular markings noted bilaterally. Findings could be related to pulmonary congestion. 3. No other interval changes. Electronically signed by Albaro Hansen 06-05-2024 08:11 AM Discharge Plan Visit Data Chief Complaint: Chest Pain Stated Complaint: Chest Pain, Head Pain ED Provider: Donnie Butts Patient Disposition: Admitted As Inpatient Discharge Instructions Interventions: ED Discharge Assessment Last Done: 06/05/24 12:51 Discharge Problem:
[2024-06-05 08:08] LABS: Basophils # (auto) 0.08 K/uL (0.00-0.20); Basophils % (auto) 0.9 %; Eosinophils # (auto) 0.16 K/uL (0.00-0.50); Eosinophils % (auto) 1.9 %; Hematocrit (blood only) 37.4 % (42.0-52.0); Hemoglobin 12.9 g/dl (14.0-18.0); Immature Granulocytes # (auto) 0.02 K/uL (0.01-0.20); Immature Granulocytes % (auto) 0.2 %; Lymphocytes # (auto) 1.01 K/uL (1.20-3.40); Lymphocytes % (auto) 11.8 %; Mean Corpuscular Hemoglobin 30.6 pg (25.0-34.0); Mean Corpuscular Hgb Conc 34.5 g/dL (32.0-36.0); Mean Corpuscular Volume 88.8 fL (80.0-100.0); Mean Platelet Volume 10.7 fL (9.4-12.4); Neutrophils # (auto) 6.67 K/uL (1.40-6.50); Neutrophils % (auto) 78.2 %; Platelet Count 201 K/uL (130-400); RDW Coefficient of Variation 12.6 % (11.5-14.5); Red Blood Count 4.21 M/uL (4.70-6.10); White Blood Count 8.54 K/ul (4.8-10.8)
--- NOTE | 2024-06-05 08:12 | XRay Report ---
EXAM: XR chest 1V portable CLINICAL HISTORY: CHEST PAIN. TECHNIQUE: An X-ray image of the chest is obtained in AP projection. COMPARISON: 03/25/2024 FINDINGS: Pulmonary Parenchyma: A suggestion of faint infiltrates in the right lung lower zone. Unchanged prominence of bronchovascular markings noted bilaterally. Findings could be related to pulmonary congestion. No evidence of consolidation or collapse. No pulmonary nodules are identified. No evidence of pleural effusion or pleural thickening. Heart and Mediastinum: Heart size and shape are normal. No mediastinal widening or masses. No hilar or mediastinal lymphadenopathy. Bony Thorax: Bony thorax appears intact without fractures or deformities. Soft Tissues: Soft tissues overlying the chest wall are unremarkable. IMPRESSION: 1. A suggestion of faint infiltrates in the right lung lower zone. Please correlate clinically. 2. Unchanged prominence of bronchovascular markings noted bilaterally. Findings could be related to pulmonary congestion. 3. No other interval changes. Electronically signed by Albaro Hansen 06-05-2024 08:11 AM
[2024-06-05 08:24] LABS: Albumin Globulin Ratio 1.5 (0.9-2); Albumin Level 3.8 gm/dl (3.4-5.0); BUN Creatinine Ratio 30.7 (10-20); Bilirubin,Total 0.2 mg/dl (0.2-1.0); Creatinine Clr Calc Pharmacy 81.8 ml/min; Globulin 2.6 gm/dl (2.5-4.0); Potassium 4.3 mmol/L (3.5-5.1); Total Protein 6.4 gm/dl (6.0-8.3)
--- NOTE | 2024-06-05 10:03 | History & Physical Report ---
Date of Service June 05, 2024 Assessment & Plan (1) NSTEMI (non-ST elevated myocardial infarction): (2) Multiple vessel coronary artery disease: (3) Parkinson's disease: (4) Hypertension: (5) Hyperlipidemia: (6) Anxiety: (7) Depression: Plan This is a 79-year-old male with PMH of multivessel CAD, history of NH, dyslipidemia, COPD, Parkinson's disease, hypertension, mood disorder and other medical problems listed below presents from home with sudden onset chest pain that occurred this morning and was found to have an NSTEMI. NSTEMI Known multi-vessel CAD - [place] [facility] revealed 100% lesion in mid-LAD, 80% lesion in mid-circumflex, 100% lesion in proximal RCA - has been medically managed due to comorbidities, complex disease Substernal CP this AM, resolved after 3 ntgs EKG with NSR, LAFB, moderate LVH, non-specific ST and T wave changes, EKG similar to previous Trop 636 -> 2868.7 Remains chest pain free in ED IV heparin started, continue aspirin, plavix, statin, Toprol Trend troponin, 2D echo, telemetry, PRN ntg Patient re-confirms wishes for medical management only. Does not want invasive procedure like cardiac cath Discussed with Dr. Ko, plan as above Parkinson's Disease Stable, continue carbidopa-levodopa Home PT/OT helping with maintaining mobility HTN Continue Toprol, Imdur HLD Continue statin, Ezetimibe, Repatha SQ Q14 days Mood disorder Stable, continue SSRI, clonazepam Q12H PRN End of Life tool inspector at beside who helps coordinate patient's care. Helping to coordinate home care including PT/OT, meals. Shows copy of POLST form completed with Dr. Robledo on computer which confirms DNR/DNI status and goals for comfort should situation arise. She will print and provide a paper copy for chart. Patient A&Ox3 and able to confirm these wishes in ED. States he does not want placement and would prefer to return home with care providers. Daughter/POA is involved in care but not at bedside. Dr. Parks to call her for update today. DVT Ppx: IV heparin Code status: DNR/DNI PCP: Venkat Dispo: Admitted to PCU Patient seen in collaboration with Dr. Parks. Please see addendum. I spent a total of 75 minutes coordinating, documenting, and providing care for this patient excluding time spent in the performance of separately billed services or time spent by another provider/QHP. History of Present Illness Chief Complaint: CP Primary Care Provider: Kaz Robledo MD This is a 79-year-old male with PMH of multivessel CAD, history of NH, dyslipidemia, prediabetes, COPD, Parkinson's disease, hypertension, mood disorder and other medical problems listed below presents from home with sudden onset chest pain that occurred this morning. Patient woke up around 430 this morning hungry and went downstairs to make himself a sandwich. After climbing back upstairs after the episode, patient developed severe substernal chest pressure and associated headache. Patient took a sublingual nitro and laid down but pain persisted so he took an additional nitro. States that pain lasted for approximately 30 minutes before fully resolving. During this time, called end of life [employer] who recommended he call an ambulance. Received spray nitro and morphine in the ambulance on the way to the hospital. Pain has not recurred since arrival. Has history of known severe multi-vessel CAD with cardiac cath [place] [facility] [place]. States he has been told by translator deaf in the past that they did not feel he was a very good candidate for cardiac catheterization and recommended medical management instead. Confirmed his wishes today and he does not wish to proceed with a cardiac catheterization, even if it is recommended. Okay with IV heparin. Reviewed POLST form from end-of-life tool inspector at bedside that confirms he is a DNR (she will be providing a copy for the chart). Patient is living at home with PT/OT and services. Wishes to remain home under all circumstances and does not want placement. Currently remains comfortable, just fatigued. Denies any fever, chills, cough or congestion, chest pain, palpitations, shortness of breath, nausea, vomit, abdominal pain, dysuria, diarrhea or constipation. Allergies Allergy/AdvReac Type Severity Reaction Status Date / Time bee venom protein (honey bee) Allergy Severe SWELLING, Verified 05/07/24 00:48 INTENSE ITCHING, HIVES gabapentin Allergy Unknown Unknown Verified 05/07/24 00:48 atorvastatin AdvReac Intermediate MUSCLE PAIN Verified 05/07/24 00:48 carbidopa [From Sinemet] AdvReac Intermediate Unknown/Family Verified 05/07/24 00:48 says only Sinemet, haven't tried Sinemet CR. levodopa [From Sinemet] AdvReac Intermediate Unknown/Family Verified 05/07/24 00:48 says only Sinemet, haven't tried Sinemet CR. Home Medications Medication Instructions Recorded Confirmed Type nitroglycerin 0.4 mg sublingual 0.4 mg sublingual DIRECTED PRN 01/17/13 06/05/24 History tablet (Nitrostat) Chest Pain #0 BTLS multivitamin 1 tab PO DAILY #0 tabs 09/20/14 06/05/24 History aspirin 81 mg tablet,delayed 81 mg PO QAM 90 days #90 tabs 04/19/17 06/05/24 History release (Pollo Low Dose Aspirin) coenzyme Q10 400 mg capsule (Co 400 mg PO DAILY 05/15/19 06/05/24 History Q-10) docusate sodium 100 mg capsule 100 mg PO DAILY PRN Constipation 05/15/19 06/05/24 History folic acid 400 mcg tablet 400 mcg PO QAM 05/15/19 06/05/24 History metoprolol succinate 25 mg 25 mg PO HS 05/15/19 06/05/24 History tablet,extended release 24 hr clonazepam 0.5 mg tablet (Klonopin) 0.5 mg PO Q12H PRN Anxiety #0 tabs 11/25/19 06/05/24 History ketoconazole 2 % topical cream 1 appln topical UD 11/25/19 06/05/24 History cholecalciferol (vitamin D3) 25 25 mcg PO QAM 02/05/22 06/05/24 History mcg (1,000 unit) tablet (Vitamin D3) polyethylene glycol 3350 17 gram 17 g PO DAILY Constipation 02/05/22 06/05/24 History oral powder packet (Miralax) calcium carbonate 500 mg PO DAILY 04/24/22 06/05/24 History citalopram 20 mg tablet 20 mg PO QAM #0 tabs 12/14/22 06/05/24 History carbidopa ER 25 mg-levodopa 100 mg 1 tab PO BID 03/25/24 06/05/24 History tablet,extended release clopidogrel 75 mg tablet 75 mg PO QAM 03/25/24 06/05/24 History isosorbide mononitrate 60 mg 60 mg PO QAM #30 tabs 04/08/24 06/05/24 Rx tablet,extended release 24 hr diclofenac sodium 1 % topical gel 4 g topical QID 05/07/24 06/05/24 History evolocumab 140 mg/mL subcutaneous 140 mg subcut .Q14 DAYS 05/07/24 06/05/24 History pen injector (Neha Carter) ezetimibe 10 mg tablet 10 mg PO QAM 05/07/24 06/05/24 History fluocinonide 0.05 % topical 1 applic topical DAILY PRN Skin 05/07/24 06/05/24 History solution Irritation ketoconazole 2 % topical cream 1 applic topical .2-3 TIMES WEEKLY 05/07/24 06/05/24 History melatonin 3 mg tablet 6 mg PO HS 05/07/24 06/05/24 History triamcinolone acetonide 0.1 % 1 applic topical BID 05/07/24 06/05/24 History topical cream Past Med/Surg History Problem List (Updated 06/05/24 @ 11:18 by Jennifer Noel PA-C) NSTEMI (non-ST elevated myocardial infarction) SOB (shortness of breath) on exertion Parkinson's disease Elevated troponin I level (Acute) Chest pain (Acute) Anxiety Depression Hyperlipidemia CAD (coronary artery disease) Peripheral arterial disease Hypertension (Chronic) Medical History (Updated 06/05/24 @ 11:18 by Jennifer Noel PA-C) Multiple vessel coronary artery disease Atrial flutter Inguinal hernia Surgical History S/P tonsillectomy Family History Other Asthma Denies family history of Hypertension Social History Smoking Status: Former smoker Tobacco Type: Cigarettes Second Hand Exposure: No; Do You Dip or Chew Tobacco: No; Hx Alcohol Use: No Hx Substance Use: No Preferred Language: [place] Communication Ability: Effective Fence Installer Required: No Beliefs That Will Affect Care: None Current Living Situation: Alone Feels Safe at Home: Yes Assistive Devices: Cane Review of Systems Review of Systems: At least ten systems reviewed and negative except as noted in the HPI. Physical Exam Physical Exam: General Appearance: WD/WN, vitals as above, NAD, sitting up in bed, pleasant, appears chronically ill, BUE tremors Head: normocephalic, atraumatic Eyes: normal inspection, PERRL, conjunctivae normal, anicteric sclerae ENT: external ear and nose normal, oropharynx normal Neck: normal visual inspection, trachea midline, no thyromegaly Respiratory: normal respiratory effort, lungs clear to auscultation, no wheeze, rales, rhonchi. No accessory muscle use Cardiovascular: regular rate, rhythm, normal peripheral pulses, no BLE edema. Vessels: no JVD Chest: normal inspection of chest Abdomen/GI: normal bowel sounds, soft, nontender, no hepatosplenomegaly Extremities/Musculoskeletal: no cyanosis or clubbing, extremities motor strength 5/5 Neurologic: PERRL, EOMI, accommodation nl, no face palsy, no dysarthria, CN's II-XI intact bilaterally and moves all extremities Psychiatric: A+Ox3, euthymic affect Skin: no rashes, normal color, warm/dry Results & Data Results & Data Vital Signs (Past 12 Hours) Vital Signs Temp Pulse Pulse Resp BP BP Pulse Ox 06/05/24 08:38 67 17 144/77 H 97 06/05/24 07:29 66 06/05/24 07:28 66 20 188/77 H 95 06/05/24 06:44 06/05/24 06:44 06/05/24 06:44 36.7 C 69 20 200/90 H 94 O2 Del Method 06/05/24 08:38 Room Air 06/05/24 07:29 06/05/24 07:28 Room Air 06/05/24 06:44 Room Air 06/05/24 06:44 Room Air 06/05/24 06:44 Room Air Laboratory Results Short CBC 06/05/24 Range/Units 07:42 WBC 8.54 (4.8-10.8) K/ul Hgb 12.9 L (14.0-18.0) g/dl Hct 37.4 L (42.0-52.0) % Plt Count 201 (130-400) K/uL BMP 06/05/24 07:42 Sodium 138 Potassium 4.3 Chloride 105 Carbon Dioxide 27 BUN 27 H Creatinine 0.88 Glucose 117 H Calcium 9.0 Liver Function 06/05/24 Range/Units 07:42 Total Bilirubin 0.2 (0.2-1.0) mg/dl AST 22 (13-39) U/L ALT 14 (7-52) U/L Alkaline Phosphatase 88 (34-104) U/L Albumin 3.8 (3.4-5.0) gm/dl Diagnostic Findings Chest X-Ray 06/05/24 06:59 EXAM: XR chest 1V portable CLINICAL HISTORY: CHEST PAIN. TECHNIQUE: An X-ray image of the chest is obtained in AP projection. COMPARISON: 03/25/2024 FINDINGS: Pulmonary Parenchyma: A suggestion of faint infiltrates in the right lung lower zone. Unchanged prominence of bronchovascular markings noted bilaterally. Findings could be related to pulmonary congestion. No evidence of consolidation or collapse. No pulmonary nodules are identified. No evidence of pleural effusion or pleural thickening. Heart and Mediastinum: Heart size and shape are normal. No mediastinal widening or masses. No hilar or mediastinal lymphadenopathy. Bony Thorax: Bony thorax appears intact without fractures or deformities. Soft Tissues: Soft tissues overlying the chest wall are unremarkable. IMPRESSION: 1. A suggestion of faint infiltrates in the right lung lower zone. Please correlate clinically. 2. Unchanged prominence of bronchovascular markings noted bilaterally. Findings could be related to pulmonary congestion. 3. No other interval changes. Electronically signed by Albaro Hansen 06-05-2024 08:11 AM ECG Additional Comments: NSR at 71 bpm, LAFB, moderate LVH, non-specific ST and T wave changes, EKG similar to previous Supervising Physician Co-Signing Physician Notes Patient seen and examined independently. Discussed with above provider. Patient presents with intermittent chest pain; has history of severe CAD managed medically. High-sensitivity troponin is elevated on admission. Patient reported chest pain improvement after administration of nitroglycerin. Started on heparin drip for NSTEMI. Other home medication regimen. Cardiology consulted for comanagement. Reached out to daughter over the phone; left voice message for call back. I have reviewed the advanced practitioner's documentation, and I agree with, and take responsibility for the plan of care I spent a total of 30 minutes coordinating, documenting, and providing care for this patient excluding time spent in the performance of separately billed services. All of the aforementioned completed while collaborating with the assigned advanced practitioner for a full treatment plan (3) Parkinson's disease Dyskinesia presence: unspecified whether dyskinesia Fluctuating manifestations: unspecified whether manifestations fluctuate Qualified Code(s): G20.A1 - Parkinson's disease without dyskinesia, without mention of fluctuations
--- NOTE | 2024-06-05 10:15 | Electrocardiogram Report ---
Test Reason : Blood Pressure : */* mmHG Vent. Rate : 71 BPM Atrial Rate : 71 BPM P-R Int : 150 ms QRS Dur : 94 ms QT Int : 392 ms P-R-T Axes : 50 -46 50 degrees QTcB Int : 425 ms Poor data quality, interpretation may be adversely affected Normal sinus rhythm Left anterior fascicular block Moderate voltage criteria for LVH, may be normal variant ( R in aVL ) Nonspecific ST and T wave abnormality Abnormal ECG When compared with ECG of 06-May-2024 21:51, No significant change Confirmed by Van Reyna ([id number]) on 06/05/2024 10:15:28 AM Referred By: Confirmed By: Van Reyna
[2024-06-05] MEDS ORDERED: NITROGLYCERIN SL 0.4 MG/TAB TAB SL PRN (10:22)
[2024-06-05] MEDS: CLOPIDOGREL BISULFATE 75 MG TAB PO ONE (11:16)
[2024-06-05] MEDS: HEPARIN 25000 UNIT/500 ML 25,000 UNITS/500 ML BAG IV SCH (11:22)
[2024-06-05 11:28] LABS: INR 0.9 (0.9-1.1); Partial Thromboplastin Ratio 1.2; Partial Thromboplastin Time 33 Seconds (21-31); Prothrombin Time 9.9 Seconds (9.0-12.0)
[2024-06-05] MEDS: Heparin IV Adult Wt-Based Standard *NO* INITIAL Bolus Protocol IV STA (11:43)
[2024-06-05] MEDS ORDERED: ONDANSETRON INJ 2 MG/ML 2 ML VIAL IV PRN (11:58)
[2024-06-05] MEDS ORDERED: NON-FORMULARY MEDICATION (Fluocinonide 0.05 % Solution) TOP PRN (11:58)
[2024-06-05] MEDS ORDERED: ACETAMINOPHEN 325 MG TAB PO PRN (11:58)
[2024-06-05] MEDS ORDERED: DOCUSATE SODIUM 100 MG CAP PO PRN (11:58)
--- NOTE | 2024-06-05 13:29 | CT Scan Report ---
CT head/brain wo con CLINICAL HISTORY: headache. TECHNIQUE: Multiple axial CT images of the head were obtained without contrast. A dose lowering tech nique was utilized adhering to the principles of ALARA. Sagittal and coronal reconstructions were per formed. CT DOSE: 625.8 mGy.cm COMPARISON: 04/19/2017 FINDINGS: There is no intra-axial or extra-axial fluid collection, hemorrhage, or mass. There is no f ocal attenuation abnormality of significance. There is no midline shift. There is a cava septum pellu cidum. There is moderate global cortical atrophy. The calvarium is intact. The paranasal sinus disease described on the prior examination is not presen t. The visualized portions of the paranasal sinuses are clear. IMPRESSION: No acute intracranial process. ACT 112: Negative or not required by law. The above report was generated using voice recognition software. It may contain grammatical, syntax o r spelling errors. Electronically signed by: Sravanthi Clinton M.D. 06/05/2024 1:28 PM
[2024-06-05] MEDS: POLYETHYLENE (MIRALAX) 17 GM PACK PO PRN (13:51)
[2024-06-05] MEDS: DICLOFENAC SOD 1% GEL 100 GM TUBE EXT SCH (13:51)
[2024-06-05] MEDS: CARBIDOPA/LEVODOPA 25/100MG EXT REL TAB PO SCH (13:52)
--- NOTE | 2024-06-05 15:00 | Cardiology Consultation ---
Date of Consultation June 05, 2024 Assessment & Plan (1) Chest pain: (2) NSTEMI (non-ST elevated myocardial infarction): (3) CAD (coronary artery disease): (4) Hypertension: (5) Parkinson's disease: (6) Hyperlipidemia: Plan Assessment: 79 year old male with complex medical history presents with acute onset chest pain, elevated troponins in the setting of known severe coronary disease. Plan: 1. Chest pain 2. NSTEMI 3 CAD 4. HTN 5. HLD -Patient with known severe multi-vessel CAD. last Cardiac cath was at [facility] 10/22/2023 as follows: Left main: Mildly diseased LAD: severely diseased wraps around apex and supplies distal inf wall. 100% lesion in the Mid-LD Cx: severely diseased, severely calcified 80% lesion Mid-Cx RCA: Severely diseased 100% lesion in the Prox RCA Conclusions: Severe disease involving all three vessels. Recommendations: -CVTS referral, if not surgical candidate can consider PCI to the Cx -CT surgery declined surgical intervention, patient a poor candidate with high risk. -patient today has expressed that he does not want to pursue any invasive measures knowing the severity of his disease and would like to utilize medication management. -BP well above target at this time, which has been an ongoing issue as patient has labile blood pressure in the setting of known parkinson's disease. - Plan is to continue Toprol xl, will attempt to increase from 25mg daily to 37.5mg PO daily at night, may start first increased dose tonight - Currently on Isosorbide mononitrate 60mg PO Daily, will increase to 90mg daily starting in the AM and monitor blood pressures/response closely. -Continue to trend troponin to peak -Echocardiogram shows preserved LVEF, no change in his known wall motion abnormality or valvular disease. -Continue heparin gtt for at least the next 48hours. -Continue DAPT with ASA 81mg and Plavix -continue Zetia 6. Parkinson's disease. -Continue patient's current home regimen of Carbidopa/Levodopa. Case has been discussed with Dr. Ko. Further recommendations regarding plan of care as per his assessment. I spent a total of 40 minutes on the date of service in preparation, delivery, documentation of the care provided to the patient excluding any time spent in the performance of separately billed services. FREDERIC Mccray [facility] Cardiology [facility] Supervising Physician Co-Signing Physician Notes I have personally performed a history and physical examination on the patient. I have reviewed the advance practitioner's documentation, and I agree with, and take responsibility for the plan of care. 79-year-old male with severe coronary disease presents to the emergency department with NSTEMI. Echocardiogram with relatively stable ejection fraction and wall motion abnormality. Patient deemed not a surgical candidate after recent cardiac catheterization 10/2023. He declines any further invasive evaluation/ treatment. * Continue IV heparin for 48 hours. * Titrate Toprol-XL to 37.5 mg daily. * Titrate isosorbide monohydrate to 90 mg daily * Continue dual antiplatelet therapy * Consider addition of Ranexa in the future pending clinical response to titration of beta-neto and long-acting nitrates. I spent a total of 35 minutes on the date of service in preparation, delivery, and documentation of the care provided to this patient, excluding any time spent in the performance of separately billed services. Cuauhtemoc Ko DO [facility] History of Present Illness Reason for Consultation: Chest pain; NSTEMI, known severe CAD Requesting Physician: [facility] hospitalist Attending Physician: Tyshawn Parks MD History of Present Illness HPI: patient is a 79 year old medically complex male that presented to the ER with acute complaints of sudden onset chest pain that started this morning. patient states that he woke up at 4am feeling hungry which is not abnormal for him, proceeded to go downstairs to his kitchen and make himself some crackers with peanut butter. He had his snack while watching TV and then decided to go back to bed. Upon walking up his flight of stairs, he developed sudden onset chest pressure described as a squeezing tightness and just knew "something isn't right" he went back to bed and after a few minutes took one SL NTG. No relief after 5 mintues and therefore took a second as he has been previously instructed to do. Still no relief and therefore he summoned EMS. He received a spray of SL NTG, 4-81mg ASA, and a dose of IV morphine. patient reports that the discomfort lessened significantly by time of arrival to the ER and then completely resolved over the next few hours. He is currently chest pain free resting in bed and feels "much better". Denies any palpitations, no near-syncope or syncope, no shortness of breath, no edema. Patient did endorse a intense head pressure/headache and had a CT of the head done, see below which was negative for any acute process. Patient has been compliant on all medication therapies, but does endorse some increased stressors with family. Cardiac Problems: 1. Ischemic heart disease with chronic total occlusion of the proximal LAD with [id number] collaterals and a 50% diffuse mid RCA stenosis with preserved LV systolic function. 2. History of postprandial angina resolved. 3. Carotid occlusive disease. 4. Hypertension. 5. Hyperlipidemia. 6. Erectile dysfunction. 7. Peripheral arterial disease. 8. Subarachnoid/subdural hematoma. 9. History of intolerance to atorvastatin. EKG upon admission SR with no acute ST-T wave elevation. Chest x-ray IMPRESSION: 1. A suggestion of faint infiltrates in the right lung lower zone. Please correlate clinically. 2. Unchanged prominence of bronchovascular markings noted bilaterally. Findings could be related to pulmonary congestion. 3. No other interval changes. Head CT (Re: Headache): negative for acute intracranial process HST 636..7 Allergies Allergy/AdvReac Type Severity Reaction Status Date / Time bee venom protein (honey bee) Allergy Severe SWELLING, Verified 05/07/24 00:48 INTENSE ITCHING, HIVES gabapentin Allergy Unknown Unknown Verified 05/07/24 00:48 atorvastatin AdvReac Intermediate MUSCLE PAIN Verified 05/07/24 00:48 carbidopa [From Sinemet] AdvReac Intermediate Unknown/Family Verified 05/07/24 00:48 says only Sinemet, haven't tried Sinemet CR. levodopa [From Sinemet] AdvReac Intermediate Unknown/Family Verified 05/07/24 00:48 says only Sinemet, haven't tried Sinemet CR. Home Medications Medication Instructions Recorded Confirmed Type nitroglycerin 0.4 mg sublingual 0.4 mg sublingual DIRECTED PRN 01/17/13 06/05/24 History tablet (Nitrostat) Chest Pain #0 BTLS multivitamin 1 tab PO DAILY #0 tabs 09/20/14 06/05/24 History aspirin 81 mg tablet,delayed 81 mg PO QAM 90 days #90 tabs 04/19/17 06/05/24 History release (Pollo Low Dose Aspirin) coenzyme Q10 400 mg capsule (Co 400 mg PO DAILY 05/15/19 06/05/24 History Q-10) docusate sodium 100 mg capsule 100 mg PO DAILY PRN Constipation 05/15/19 06/05/24 History folic acid 400 mcg tablet 400 mcg PO QAM 05/15/19 06/05/24 History metoprolol succinate 25 mg 25 mg PO HS 05/15/19 06/05/24 History tablet,extended release 24 hr clonazepam 0.5 mg tablet (Klonopin) 0.5 mg PO Q12H PRN Anxiety #0 tabs 11/25/19 06/05/24 History ketoconazole 2 % topical cream 1 appln topical UD 11/25/19 06/05/24 History cholecalciferol (vitamin D3) 25 25 mcg PO QAM 02/05/22 06/05/24 History mcg (1,000 unit) tablet (Vitamin D3) polyethylene glycol 3350 17 gram 17 g PO DAILY Constipation 02/05/22 06/05/24 History oral powder packet (Miralax) calcium carbonate 500 mg PO DAILY 04/24/22 06/05/24 History citalopram 20 mg tablet 20 mg PO QAM #0 tabs 12/14/22 06/05/24 History carbidopa ER 25 mg-levodopa 100 mg 1 tab PO BID 03/25/24 06/05/24 History tablet,extended release clopidogrel 75 mg tablet 75 mg PO QAM 03/25/24 06/05/24 History isosorbide mononitrate 60 mg 60 mg PO QAM #30 tabs 04/08/24 06/05/24 Rx tablet,extended release 24 hr diclofenac sodium 1 % topical gel 4 g topical QID 05/07/24 06/05/24 History evolocumab 140 mg/mL subcutaneous 140 mg subcut .Q14 DAYS 05/07/24 06/05/24 History pen injector (Neha Carter) ezetimibe 10 mg tablet 10 mg PO QAM 05/07/24 06/05/24 History fluocinonide 0.05 % topical 1 applic topical DAILY PRN Skin 05/07/24 06/05/24 History solution Irritation ketoconazole 2 % topical cream 1 applic topical .2-3 TIMES WEEKLY 05/07/24 06/05/24 History melatonin 3 mg tablet 6 mg PO HS 05/07/24 06/05/24 History triamcinolone acetonide 0.1 % 1 applic topical BID 05/07/24 06/05/24 History topical cream Patient History Medical History (Updated 06/05/24 @ 11:18 by Jennifer Noel PA-C) Multiple vessel coronary artery disease Atrial flutter Inguinal hernia Surgical History S/P tonsillectomy Family History Other Asthma Denies family history of Hypertension Social History Smoking Status: Former smoker Tobacco Type: Cigarettes Second Hand Exposure: No; Do You Dip or Chew Tobacco: No; Hx Alcohol Use: No Hx Substance Use: No Preferred Language: Jordanian Communication Ability: Effective Emergency Medicine Required: No Beliefs That Will Affect Care: None Current Living Situation: Alone Other Information That Helps Us Care for You: No Feels Safe at Home: Yes Safety Concerns: Feels Safe At This Time Assistive Devices: None Review of Systems Review of Systems: All systems reviewed & are unremarkable except as noted in HPI & below Physical Exam Constitutional: well developed and well nourished; no acute distress and not ill appearing Neck: normal visual inspection and trachea midline Respiratory: normal respiratory effort, lungs clear to auscultation no cough Auscultation: lungs clear to auscultation bilaterally; no crackles, no rales, no rhonchi and no wheezes Cardiovascular: Rate/Rhythm: regular rate and regular rhythm Heart Sounds: normal S1, normal S2 and + murmur (+1/6 systolic ) Vessels: dorsalis pedis pulses present; no JVD Extremities: no edema Skin: no rashes, warm and dry Psychiatric: A+Ox3, euthymic affect Results & Data Vital Signs (Past 12 Hours) Vital Signs Temp Pulse Pulse Resp BP BP Pulse Ox 06/05/24 13:30 36.6 C 70 20 164/80 H 97 06/05/24 12:30 36.8 C 66 16 156/76 H 98 06/05/24 11:00 69 20 160/89 H 98 06/05/24 10:27 67 19 06/05/24 10:02 149/87 H 06/05/24 10:00 68 22 06/05/24 09:00 66 22 94 06/05/24 09:00 109/66 06/05/24 08:38 67 17 144/77 H 97 06/05/24 07:29 66 06/05/24 07:28 66 20 188/77 H 95 06/05/24 06:44 06/05/24 06:44 06/05/24 06:44 36.7 C 69 20 200/90 H 94 O2 Del Method 06/05/24 13:30 Room Air 06/05/24 12:30 Room Air 06/05/24 11:00 Room Air 06/05/24 10:27 06/05/24 10:02 06/05/24 10:00 06/05/24 09:00 06/05/24 09:00 06/05/24 08:38 Room Air 06/05/24 07:29 06/05/24 07:28 Room Air 06/05/24 06:44 Room Air 06/05/24 06:44 Room Air 06/05/24 06:44 Room Air Laboratory Results Cardiac Enzymes 06/05/24 06/05/24 Range/Units 07:42 09:35 AST 22 (13-39) U/L Troponin I High Sens 636.0 H* 2868.7 H* D (0-20) pg/ml Coagulation 06/05/24 Range/Units 07:42 PT 9.9 (9.0-12.0) Seconds APTT 33 H (21-31) Seconds CBC 06/05/24 Range/Units 07:42 WBC 8.54 (4.8-10.8) K/ul RBC 4.21 L (4.70-6.10) M/uL Hgb 12.9 L (14.0-18.0) g/dl Hct 37.4 L (42.0-52.0) % Plt Count 201 (130-400) K/uL Neut # (Auto) 6.67 H (1.40-6.50) K/uL Lymph # (Auto) 1.01 L (1.20-3.40) K/uL [place] # (Auto) 0.60 H (0.11-0.59) K/uL Eos # (Auto) 0.16 (0.00-0.50) K/uL Baso # (Auto) 0.08 (0.00-0.20) K/uL Comprehensive Metabolic Panel 06/05/24 Range/Units 07:42 Sodium 138 (136-145) mmol/L Potassium 4.3 (3.5-5.1) mmol/L Chloride 105 (98-107) mmol/L Carbon Dioxide 27 (21-32) mmol/L BUN 27 H (6-23) mg/dl Creatinine 0.88 (0.6-1.4) mg/dl Glucose 117 H (70-99(Fasting)) mg/dl Calcium 9.0 (8.6-10.3) mg/dl AST 22 (13-39) U/L ALT 14 (7-52) U/L Alkaline Phosphatase 88 (34-104) U/L Total Protein 6.4 (6.0-8.3) gm/dl Albumin 3.8 (3.4-5.0) gm/dl Intake and Output 06/05/24 06/05/24 06/05/24 06:59 14:59 22:59 Other: Weight 103 kg 103 kg Weight Measurement Method Built in [facility] Built in [facility] Patient Weight 06/06/24 06:59 Weight 103 kg Diagnostic Findings Echocardiogram 06/05/2024 LVEF 55-60% Moderate sized septal and inferior wall motion abnormality with hypokinesis to akinesis of the segments Moderate focal calcification of the noncoronary valve cusp aortic valve sclerosis moderate, without significant aortic valvular stenosis Cardiac cath 10/22/23: Dr. Drake [facility] NSTEMI Left main: Mildly diseased LAD: severely diseased wraps around apex and supplies distal inf wall. 100% lesion in the Mid-LD Cx: severely diseased, severely calcified 80% lesion Mid-Cx RCA: Severely diseased 100% lesion in the Prox RCA Conclusions: Severe disease involving all three vessels. Recommendations: -CVTS referral, if not surgical candidate can consider PCI to the Cx (1) Chest pain Chest pain type: unspecified Qualified Code(s): R07.9 - Chest pain, unspecified (5) Parkinson's disease Dyskinesia presence: unspecified whether dyskinesia Fluctuating manifestations: unspecified whether manifestations fluctuate Qualified Code(s): G20.A1 - Parkinson's disease without dyskinesia, without mention of fluctuations
[2024-06-05 18:40] LABS: ANTI-Xa, UFH(UnfractionatedHep 0.24 IU/ml (0.3-0.7)
[2024-06-05] MEDS ORDERED: METOPROLOL SUCC 25MG EXT REL TAB PO SCH (21:00)
[2024-06-05] MEDS: TRIAMCINOLONE ACET 0.1% CR 15 GM TUBE TOP SCH (21:24)
[2024-06-05] MEDS: METOPROLOL SUCC 25MG EXT REL TAB PO SCH (21:24)
[2024-06-05] MEDS: clonazePAM 0.5 MG TAB PO PRN (21:32)
[2024-06-05] MEDS: MELATONIN 3 MG TAB PO SCH (21:32)
[2024-06-06 01:50] LABS: ANTI-Xa, UFH(UnfractionatedHep 0.53 IU/ml (0.3-0.7)
[2024-06-06 06:44] LABS: Basophils # (auto) 0.07 K/uL (0.00-0.20); Basophils % (auto) 1.3 %; Eosinophils # (auto) 0.32 K/uL (0.00-0.50); Eosinophils % (auto) 5.9 %; Hematocrit (blood only) 37.8 % (42.0-52.0); Hemoglobin 12.7 g/dl (14.0-18.0); Immature Granulocytes # (auto) 0.02 K/uL (0.01-0.20); Immature Granulocytes % (auto) 0.4 %; Lymphocytes # (auto) 1.73 K/uL (1.20-3.40); Lymphocytes % (auto) 31.6 %; Mean Corpuscular Hemoglobin 30.1 pg (25.0-34.0); Mean Corpuscular Hgb Conc 33.6 g/dL (32.0-36.0); Mean Corpuscular Volume 89.6 fL (80.0-100.0); Mean Platelet Volume 10.4 fL (9.4-12.4); Monocytes # (auto) 0.47 K/uL (0.11-0.59); Monocytes % (auto) 8.6 %; Neutrophils # (auto) 2.86 K/uL (1.40-6.50); Neutrophils % (auto) 52.2 %; Platelet Count 178 K/uL (130-400); RDW Coefficient of Variation 12.8 % (11.5-14.5); Red Blood Count 4.22 M/uL (4.70-6.10); White Blood Count 5.47 K/ul (4.8-10.8)
[2024-06-06 06:52] LABS: Albumin Globulin Ratio 1.5 (0.9-2); Albumin Level 3.8 gm/dl (3.4-5.0); BUN Creatinine Ratio 25.3 (10-20); Bilirubin,Total 0.3 mg/dl (0.2-1.0); Calcium 9.4 mg/dl (8.6-10.3); Creatinine Clr Calc Pharmacy 77.2 ml/min; Globulin 2.5 gm/dl (2.5-4.0); Potassium 4.3 mmol/L (3.5-5.1); Total Protein 6.3 gm/dl (6.0-8.3)
[2024-06-06 07:03] LABS: Troponin I High Sensitivity 3082.8 pg/ml (0-20)
--- NOTE | 2024-06-06 08:40 | Cardiology Progress Note ---
Date of Service June 06, 2024 Assessment & Plan (1) Chest pain: (2) NSTEMI (non-ST elevated myocardial infarction): (3) CAD (coronary artery disease): (4) Hypertension: (5) Parkinson's disease: (6) Hyperlipidemia: Plan Assessment: 79 year old male with complex medical history presents with acute onset chest pain, elevated troponins in the setting of known severe coronary disease. Plan: 1. Chest pain 2. NSTEMI 3 CAD 4. HTN 5. HLD -Patient with known severe multi-vessel CAD. last Cardiac cath was at [facility] 10/22/2023 as follows: Left main: Mildly diseased LAD: severely diseased wraps around apex and supplies distal inf wall. 100% lesion in the Mid-LD Cx: severely diseased, severely calcified 80% lesion Mid-Cx RCA: Severely diseased 100% lesion in the Prox RCA Conclusions: Severe disease involving all three vessels. Recommendations: -CVTS referral, if not surgical candidate can consider PCI to the Cx -CT surgery declined surgical intervention, patient a poor candidate with high risk. -patient today has expressed that he does not want to pursue any invasive measures knowing the severity of his disease and would like to utilize medication management. -BP well above target at this time, which has been an ongoing issue as patient has labile blood pressure in the setting of known parkinson's disease. - Plan is to continue Toprol xl, will attempt to increase from 25mg daily to 37.5mg PO daily at night, may start first increased dose tonight - Currently on Isosorbide mononitrate 60mg PO Daily, will increase to 90mg daily starting in the AM and monitor blood pressures/response closely. -Continue to trend troponin to peak -Echocardiogram shows preserved LVEF, no change in his known wall motion abnormality or valvular disease. -Continue heparin gtt for at least the next 48hours. -Continue DAPT with ASA 81mg and Plavix -continue Zetia 6. Parkinson's disease. -Continue patient's current home regimen of Carbidopa/Levodopa. 06/06/2024: -Patient resting comfortably in bed with no acute cardiac complaints. no recurrence of chest pain/pressure. -Troponin has peaked and is trending down. -Review of telemetry remains stable with no acute events overnight. -AM blood pressure remains elevated prior to his medications. Labile blood pressures have been a known chronic issue. Continue to trend blood pressure. -Continue Toprol xl 37.5mg PO HS -Continue Isosorbide mononitrate 90mg PO Daily. -Continue heparin gtt -Continue DAPT with ASA 81mg and Plavix -Continue zetia. -Will reassess patient status in the AM. When patient is appropriate for discharge, he already has close follow up scheduled with our office. He is aware to keep that appointment. Case has been discussed with Dr. Ko. Further recommendations regarding plan of care as per his assessment. I spent a total of 30 minutes on the date of service in preparation, delivery, documentation of the care provided to the patient excluding any time spent in the performance of separately billed services. FREDERIC Mccray [facility] Admission and Anticipated Discharge Date Admission Date: June 05, 2024 Supervising Physician Co-Signing Physician Notes I have personally performed a history and physical examination on the patient. I have reviewed the advance practitioner's documentation, and I agree with, and take responsibility for the plan of care. 79-year-old male with severe coronary disease presents to the emergency department with NSTEMI. Echocardiogram with relatively stable ejection fraction and wall motion. Patient deemed not a surgical candidate after recent cardiac catheterization 10/2023. He declines any further invasive evaluation/ treatment. * Continue IV heparin for additional 24 hours. * Toprol-XL titrated to 37.5 mg daily 06/05/2024. * Isosorbide monohydrate titrated to 90 mg daily 06/05/2024. * Continue dual antiplatelet therapy * Consider addition of Ranexa in the future pending clinical response to titration of beta-neto and long-acting nitrates. * Possible discharge in 24-48 hours. I spent a total of 30 minutes on the date of service in preparation, delivery, and documentation of the care provided to this patient, excluding any time spent in the performance of separately billed services. Cuauhtemoc Ko DO, [facility] Subjective 06/06/2024: Patient seen and examined in follow up today. Feeling well. Denies any recurrence of chest pain, pressure. No palpitations, no shortness of breath, no PND, no pre-syncope, syncope or edema. 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 We reviewed the current plan of care. Labs, vitals, diagnostics, telemetry and documentation reviewed. Telemetry reviewed showing SR rates 60-70's No acute events overnight. HST peaked at 4540.3 and is trending down Review of Systems Review of Systems: All systems reviewed & are unremarkable except as noted in HPI & below Physical Exam Constitutional: well developed and well nourished; no acute distress and not ill appearing Neck: normal visual inspection and trachea midline Respiratory: normal respiratory effort, lungs clear to auscultation no coug h Auscultation: lungs clear to auscultation bilaterally; no crackles, no rales, no rhonchi and no wheezes Cardiovascular: Rate/Rhythm: regular rate and regular rhythm Heart Sounds: normal S1, normal S2 and + murmur (+1/6 systolic ) Vessels: dorsalis pedis pulses present; no JVD Extremities: no edema Skin: no rashes, warm and dry Psychiatric: A+Ox3, euthymic affect Results & Data Vital Signs (Past 12 Hours) Vital Signs Temp Pulse Pulse Resp BP Pulse Ox O2 Del Method 06/06/24 07:55 49 L 06/06/24 07:42 36.4 C L 53 L 17 182/92 H 96 Room Air 06/06/24 03:09 36.3 C L 49 L 16 175/82 H 97 Room Air 06/06/24 02:47 57 L 06/05/24 22:28 36.4 C L 69 18 203/95 H 95 Room Air Laboratory Results Cardiac Enzymes 06/05/24 06/05/24 06/05/24 Range/Units 07:42 09:35 15:44 AST (13-39) U/L Troponin I High Sens 636.0 H* 2868.7 H* D 8231.4 H* D (0-20) pg/ml 06/05/24 06/06/24 Range/Units 21:39 05:46 AST 29 (13-39) U/L Troponin I High Sens 4540.3 H* D 3082.8 H* D (0-20) pg/ml Coagulation 06/05/24 Range/Units 07:42 PT 9.9 (9.0-12.0) Seconds APTT 33 H (21-31) Seconds CBC 06/06/24 Range/Units 05:46 WBC 5.47 (4.8-10.8) K/ul RBC 4.22 L (4.70-6.10) M/uL Hgb 12.7 L (14.0-18.0) g/dl Hct 37.8 L (42.0-52.0) % Plt Count 178 (130-400) K/uL Neut # (Auto) 2.86 (1.40-6.50) K/uL Lymph # (Auto) 1.73 (1.20-3.40) K/uL [place] # (Auto) 0.47 (0.11-0.59) K/uL Eos # (Auto) 0.32 (0.00-0.50) K/uL Baso # (Auto) 0.07 (0.00-0.20) K/uL Comprehensive Metabolic Panel 06/06/24 Range/Units 05:46 Sodium 139 (136-145) mmol/L Potassium 4.3 (3.5-5.1) mmol/L Chloride 107 (98-107) mmol/L Carbon Dioxide 26 (21-32) mmol/L BUN 22 (6-23) mg/dl Creatinine 0.87 (0.6-1.4) mg/dl Glucose 103 H (70-99(Fasting)) mg/dl Calcium 9.4 (8.6-10.3) mg/dl AST 29 (13-39) U/L ALT 4 L (7-52) U/L Alkaline Phosphatase 77 (34-104) U/L Total Protein 6.3 (6.0-8.3) gm/dl Albumin 3.8 (3.4-5.0) gm/dl Intake and Output 06/05/24 06/06/24 06/06/24 22:59 06:59 14:59 Intake Total 230.433 / 900.000 669.567 / 900.000 50.6 / 50.6 Balance 230.433 / 900.000 669.567 / 900.000 50.6 / 50.6 Intake: IV 230.433 / 500.000 269.567 / 500.000 50.6 / 50.6 Heparin 99540 Unit/500 ml 25, 230.433 / 500.000 269.567 / 500.000 50.6 / 50.6 000 units In 500 ml @ 1,650 UNITS/HR 33 mls/hr IV .[id number] [facility] Rx#:[id number] Oral 400 / 400 Other: # Unmeasured Voids 4 Weight 88.8 kg (1) Chest pain Chest pain type: unspecified Qualified Code(s): R07.9 - Chest pain, unspecified (5) Parkinson's disease Dyskinesia presence: unspecified whether dyskinesia Fluctuating manifestations: unspecified whether manifestations fluctuate Qualified Code(s): G20.A1 - Parkinson's disease without dyskinesia, without mention of fluctuations
[2024-06-06] MEDS ORDERED: ISOSORBIDE MONO EXTENDED REL 60 MG TABCR PO SCH (09:00)
[2024-06-06] MEDS: ISOSORBIDE MONO EXTENDED REL 30 MG TABCR PO SCH (09:10)
[2024-06-06] MEDS: FOLIC ACID 400 MCG TAB PO SCH (09:11)
[2024-06-06] MEDS: CLOPIDOGREL BISULFATE 75 MG TAB PO SCH (09:12)
[2024-06-06] MEDS: ASPIRIN 81 MG ECTAB PO SCH (09:12)
[2024-06-06] MEDS: EZETIMIBE 10 MG TAB PO SCH (09:12)
[2024-06-06] MEDS: CITALOPRAM 20 MG TAB PO SCH (09:12)
[2024-06-06] MEDS: CHOLECALCIFEROL 25 MCG (1000 UNITS) TAB PO SCH (09:12)
[2024-06-06] MEDS: CALCIUM CARBONATE 1250MG TAB PO SCH (09:12)
[2024-06-06] MEDS: MULTIVITAMIN TAB PO SCH (09:12)
--- NOTE | 2024-06-06 14:36 | Electrocardiogram Report ---
Test Reason : Blood Pressure : */* mmHG Vent. Rate : 51 BPM Atrial Rate : 51 BPM P-R Int : 208 ms QRS Dur : 98 ms QT Int : 440 ms P-R-T Axes : 26 -45 5 degrees QTcB Int : 405 ms Sinus bradycardia with sinus arrhythmia Left anterior fascicular block Moderate voltage criteria for LVH, may be normal variant ( R in aVL ) Abnormal ECG When compared with ECG of 05-Jun-2024 06:44, Inverted T waves have replaced nonspecific T wave abnormality in Inferior leads Confirmed by Van Reyna ([id number]) on 06/06/2024 2:36:25 PM Referred By: REFERRED SELF Confirmed By: Van Reyna
--- NOTE | 2024-06-06 16:34 | Hospitalist Progress Note ---
Date of Service June 06, 2024 Assessment & Plan (1) NSTEMI (non-ST elevated myocardial infarction): (2) Multiple vessel coronary artery disease: (3) Parkinson's disease: (4) Hypertension: (5) Hyperlipidemia: (6) Anxiety: (7) Depression: Plan This is a 79-year-old male with PMH of multivessel CAD, history of [place], dyslipidemia, COPD, Parkinson's disease, hypertension, mood disorder and other medical problems listed below presents from home with sudden onset chest pain that occurred this morning and was found to have an NSTEMI. #NSTEMI #Known multi-vessel CAD - Cath from [facility] revealed 100% lesion in mid-LAD, 80% lesion in mid-circumflex, 100% lesion in proximal RCA - has been medically managed due to comorbidities, complex disease -Substernal CP this AM, resolved after 3 ntgs -EKG with NSR, LAFB, moderate LVH, non-specific ST and T wave changes, EKG similar to previous -trops peaked and downtredned -Remains chest pain free Plan: -cardiology consulted, appreciate recs -IV heparin started, continue aspirin, plavix, statin, Toprol -Trend troponin, 2D echo, telemetry, PRN ntg -medical management per cardiology and patient at this time #Parkinson's Disease Stable, continue carbidopa-levodopa Home PT/OT helping with maintaining mobility #HTN Continue Toprol, Imdur #HLD Continue statin, Ezetimibe, Repatha SQ Q14 days #Mood disorder Stable, continue SSRI, clonazepam Q12H PRN Discussed social situation with patient. Patient states to this provider that he only wants myself and staff to communicate with his son, and not with his daughter. He states the daughter can call him herself for any medical information. Wants his son to be his HCPOA at this time, and would like to override any wishes he has expressed in the past regarding his daughter being HCPOA. Feeding/fluids: heart healthy Analgesia: tylenol Sedation: na Thromboprophylaxis: heparin Head up position: na Ulcer prophylaxis: na Glycemic control: na Spontaneous breathing trial: room air Bowel care: miralax prn Indwelling catheter removal: na Deescalation of antibiotics: na I spent a total of 55 minutes in direct patient care, including [id number] time with the patient and/or family, reviewing medical records, ordering and reviewing diagnostic tests, and coordinating care with other healthcare pr oviders. This time includes: history taking, physical examination, medical decision making, counseling, ECG interpretation, imaging interpretation, lab interpretation, orders, and education, excluding time spent in the performance of separately billed services. Admission and Anticipated Discharge Date Admission Date: June 05, 2024 Subjective 79-year-old male with complex cardiac history who presents for an NSTEMI. Cardiology was consulted in ED and recommended medical management only, patient has had evaluation for CABG in the past and is not a good surgical candidate at this time. Patient seen and examined at bedside patient doing well today. Discussed difficult social situations with him. Chest pain has improved. No shortness of breath or other symptoms. Review of Systems Review of Systems: CONSTITUTIONAL: Patient denies fevers, chills, sweats and weight changes. EYES: Patient denies any visual symptoms. EARS, NOSE, AND THROAT: No difficulties with hearing. No symptoms of rhinitis or sore throat. CARDIOVASCULAR: Patient denies chest pains, palpitations, orthopnea and paroxysmal nocturnal dyspnea. RESPIRATORY: No dyspnea on exertion, no wheezing or cough. GI: No nausea, vomiting, diarrhea, constipation, abdominal pain, hematochezia or melena. : No urinary hesitancy or dribbling. No nocturia or urinary frequency. No abnormal urethral discharge. MUSCULOSKELETAL: No myalgias or arthralgias. NEUROLOGIC: No chronic headaches, no seizures. Patient denies numbness, tingling or weakness. PSYCHIATRIC: Patient denies problems with mood disturbance. No problems with anxiety. ENDOCRINE: No excessive urination or excessive thirst. DERMATOLOGIC: Patient denies any rashes or skin changes. Physical Exam Physical Exam: Gen: A&O 3 NAD, some frailty noted HEENT: NCAT, EOMI, not icteric. External ears normal. No rhinorrhea. Moist mucous membranes. Neck: Supple, full range of motion, no observable masses, No meningeal sign. Lungs: No Respiratory distress. CV: RRR, no edema. Abdomen: Soft, nondistended, No rebound tenderness. MSK: No joint swelling, no redness. Skin: No rashes, petechiae, lesions. Normal color per patient. Neuro: Normal Gait, Grossly intact. Psych: Appropriate for situation. Results & Data Results & Data Vital Signs (Past 12 Hours) Vital Signs Temp Pulse Pulse Resp BP Pulse Ox O2 Del Method 06/06/24 15:48 36.3 C L 60 19 132/73 96 Room Air 06/06/24 11:57 36.3 C L 55 L 17 117/73 95 Room Air 06/06/24 07:55 49 L 06/06/24 07:42 36.4 C L 53 L 17 182/92 H 96 Room Air Laboratory Results - Personally interpreted, troponin is downtrending, reviewed prior cardiac history including notes and imaging, patient has a preserved ejection fraction but severe three-vessel disease, has discussed CABG in the past with conclusion he would be too high risk for surgery Medications Administered Aspirin (Aspirin 81 Mg Ectab) 81 mg PO [facility] Stop: 07/06/24 08:59 Last Admin: 06/06/24 09:12 Dose: 81 mg Documented By: MIMI Calcium Carbonate (Calcium Carbonate 1250mg Tab) 1 tab PO DAILY [facility] Stop: 07/06/24 08:59 Last Admin: 06/06/24 09:12 Dose: 1 tab Documented By: MIMI Carbidopa/Levodopa (Carbidopa/Levodopa 25/100mg Ext Rel Tab) 1 tab PO BID [facility] Stop: 07/05/24 11:57 Last Admin: 06/06/24 09:12 Dose: 1 tab Documented By: Admin: 06/05/24 21:42 Dose: 1 tab Documented By: Admin: 06/05/24 13:52 Dose: 1 tab Documented By: MIMI Citalopram Hydrobromide (Citalopram 20 Mg Tab) 20 mg PO [facility] Stop: 07/06/24 08:59 Last Admin: 06/06/24 09:12 Dose: 20 mg Documented By: MIMI Clonazepam (Clonazepam 0.5 Mg Tab) 0.5 mg PO Q12H PRN PRN Reason: Anxiety Stop: 07/05/24 11:57 Last Admin: 06/05/24 21:32 Dose: 0.5 mg Documented By: DELROY Clopidogrel Bisulfate (Clopidogrel Bisulfate 75 Mg Tab) 75 mg PO [facility] Stop: 07/06/24 08:59 Last Admin: 06/06/24 09:12 Dose: 75 mg Documented By: MIMI Diclofenac Sodium (Diclofenac Sod 1% Gel 100 Gm Tube) 4 gm EXT QID [facility]; Protocol Stop: 07/05/24 12:59 Last Admin: 06/06/24 13:56 Dose: 4 gm Documented By: Admin: 06/06/24 09:09 Dose: 4 gm Documented By: Admin: 06/05/24 21:20 Dose: Not Given Documented By: Admin: 06/05/24 16:47 Dose: 4 gm Documented By: Admin: 06/05/24 13:51 Dose: 4 gm Documented By: MIMI Ezetimibe (Ezetimibe 10 Mg Tab) 10 mg PO [facility] Stop: 07/06/24 08:59 Last Admin: 06/06/24 09:12 Dose: 10 mg Documented By: MIMI Folic Acid (Folic Acid 400 Mcg Tab) 400 mcg PO [facility] Stop: 07/06/24 08:59 Last Admin: 06/06/24 09:11 Dose: 400 mcg Documented By: MIMI Heparin Sodium/Dextrose (Heparin 26780 Unit/500 Ml) 25,000 units in 500 mls @ 33 mls/hr IV .[id number] [facility]; Protocol Stop: 07/05/24 10:29 Last Titration: 06/06/24 15:08 Dose: 1,650 units/hr, 33 mls/hr Documented By: ELADIA Co-signed By: MIMI Titration: 06/06/24 07:13 Dose: 1,650 units/hr, 33 mls/hr Documented By: MIMI Co-signed By: DELROY Admin: 06/06/24 05:41 Dose: 1,650 units/hr, 33 mls/hr Documented By: DELROY Co-signed By: LIZETTE Titration: 06/06/24 02:59 Dose: Infused Documented By: DELROY Co-signed By: LIZETTE Titration: 06/06/24 02:33 Dose: 1,650 units/hr, 33 mls/hr Documented By: DELROY Co-signed By: LMP Titration: 06/05/24 18:48 Dose: 1,650 units/hr, 33 mls/hr Documented By: MIMI Co-signed By: DELROY Admin: 06/05/24 11:22 Dose: 1,550 units/hr, 31 mls/hr Documented By: DEANNE Co-signed By: MR Isosorbide Mononitrate (Isosorbide [place] Extended Rel 30 Mg Tabcr) 90 mg PO QAM [facility] Stop: 07/06/24 08:59 Last Admin: 06/06/24 09:10 Dose: 90 mg Documented By: MIMI Melatonin (Melatonin 3 Mg Tab) 6 mg PO HS [facility] Stop: 07/05/24 20:59 Last Admin: 06/05/24 21:32 Dose: 6 mg Documented By: DELROY Metoprolol Succinate (Metoprolol Succ 25mg Ext Rel Tab) 37.[address] [facility] Stop: 07/05/24 20:59 Last Admin: 06/05/24 21:24 Dose: 37.5 mg Documented By: DELROY Multivitamins (Multivitamin Tab) 1 tab PO DAILY [facility] Stop: 07/06/24 08:59 Last Admin: 06/06/24 09:12 Dose: 1 tab Documented By: MIMI Polyethylene Glycol (Polyethylene (Miralax) 17 Gm Pack) 17 gm PO DAILY PRN PRN Reason: Constipation Stop: 07/05/24 11:57 Last Admin: 06/06/24 09:12 Dose: 17 gm Documented By: Admin: 06/05/24 13:51 Dose: 17 gm Documented By: MIMI Triamcinolone Acetonide (Triamcinolone Acet 0.1% Cr 15 Gm Tube) 1 appln TOP BID [facility] Stop: 07/05/24 20:59 Last Admin: 06/06/24 09:12 Dose: 1 appln Documented By: Admin: 06/05/24 21:24 Dose: 1 appln Documented By: ROBIN Vitamin D (Cholecalciferol 25 Mcg (1000 Units) Tab) 25 mcg PO QAM [facility] Stop: 07/06/24 08:59 Last Admin: 06/06/24 09:12 Dose: 25 mcg Documented By: MIMI (3) Parkinson's disease Dyskinesia presence: unspecified whether dyskinesia Fluctuating manifestations: unspecified whether manifestations fluctuate Qualified Code(s): G20.A1 - Parkinson's disease without dyskinesia, without mention of fluctuations
--- NOTE | 2024-06-07 07:42 | Cardiology Progress Note ---
Date of Service June 07, 2024 Assessment & Plan (1) Chest pain: (2) NSTEMI (non-ST elevated myocardial infarction): (3) CAD (coronary artery disease): (4) Hypertension: (5) Parkinson's disease: (6) Hyperlipidemia: Plan Assessment: 79 year old male with complex medical history presents with acute onset chest pain, elevated troponins in the setting of known severe coronary disease. Plan: 1. Chest pain 2. NSTEMI 3 CAD 4. HTN 5. HLD -Patient with known severe multi-vessel CAD. last Cardiac cath was at [facility] 10/22/2023 as follows: Left main: Mildly diseased LAD: severely diseased wraps around apex and supplies distal inf wall. 100% lesion in the Mid-LD Cx: severely diseased, severely calcified 80% lesion Mid-Cx RCA: Severely diseased 100% lesion in the Prox RCA Conclusions: Severe disease involving all three vessels. Recommendations: -CVTS referral, if not surgical candidate can consider PCI to the Cx -CT surgery declined surgical intervention, patient a poor candidate with high risk. -patient today has expressed that he does not want to pursue any invasive measures knowing the severity of his disease and would like to utilize medication management. -BP well above target at this time, which has been an ongoing issue as patient has labile blood pressure in the setting of known parkinson's disease. - Plan is to continue Toprol xl, will attempt to increase from 25mg daily to 37.5mg PO daily at night, may start first increased dose tonight - Currently on Isosorbide mononitrate 60mg PO Daily, will increase to 90mg daily starting in the AM and monitor blood pressures/response closely. -Continue to trend troponin to peak -Echocardiogram shows preserved LVEF, no change in his known wall motion abnormality or valvular disease. -Continue heparin gtt for at least the next 48hours. -Continue DAPT with ASA 81mg and Plavix -continue Zetia 6. Parkinson's disease. -Continue patient's current home regimen of Carbidopa/Levodopa. 06/06/2024: -Patient resting comfortably in bed with no acute cardiac complaints. no recurrence of chest pain/pressure. -Troponin has peaked and is trending down. -Review of telemetry remains stable with no acute events overnight. -AM blood pressure remains elevated prior to his medications. Labile blood pressures have been a known chronic issue. Continue to trend blood pressure. -Continue Toprol xl 37.5mg PO HS -Continue Isosorbide mononitrate 90mg PO Daily. -Continue heparin gtt -Continue DAPT with ASA 81mg and Plavix -Continue zetia. -Will reassess patient status in the AM. When patient is appropriate for discharge, he already has close follow up scheduled with our office. He is aware to keep that appointment. 06/07/2024: -Patient is doing well from a cardiovascular standpoint. tolerating titration in medications well. No recurrence of symptoms. -BP well controlled. -Review of telemetry shows no acute events overnight. -Continue Toprol xl 37.5mg PO HS -Continue Isosorbide mononitrate 90mg PO Daily -Continue DAPT with ASA 81mg and Plavix. -Continue Zetia -Please ambulate patient in halls today. -Will discuss patient with Dr. Ko and consideration for discharge. Further recommendations per Dr. Ko. -When appropriate for discharge, patient and office are already aware to keep his close return follow up in our office. Case has been discussed with Dr. Ko. Further recommendations regarding plan of care as per his assessment. I spent a total of 30 minutes on the date of service in preparation, delivery, documentation of the care provided to the patient excluding any time spent in the performance of separately billed services. FREDERIC Mccray [facility] Cardiology [facility] Admission and Anticipated Discharge Date Admission Date: June 05, 2024 Supervising Physician Co-Signing Physician Notes I have personally performed a history and physical examination on the patient. I have reviewed the advance practitioner's documentation, and I agree with, and take responsibility for the plan of care. 79-year-old male with severe coronary disease presents with NSTEMI. Echocardiogram with relatively stable ejection fraction and wall motion. Patient deemed not a surgical candidate after recent cardiac catheterization 10/2023. He declines any further invasive evaluation/ treatment. Medical management recommended. * Patient has completed 48 hours of IV heparin. * Toprol-XL titrated to 37.5 mg daily 06/05/2024. * Isosorbide monohydrate titrated to 90 mg daily 06/05/2024. * Continue dual antiplatelet therapy * Consider addition of Ranexa in the future (outpatient) pending clinical response to titration of beta-neto and long-acting nitrates. * No further inpatient cardiac testing or intervention recommended at this time. * Cardiology will sign off. Please call with additional concerns/questions. I spent a total of 30 minutes on the date of service in preparation, delivery, and documentation of the care provided to this patient, excluding any time spent in the performance of separately billed services. Cu[place]htemoc Ko DO, [facility] Subjective 06/07/2024: Patient seen and examined in follow up today. Feeling well. Offers no cardiac complaints. Denies any chest pain, pressure, palpitations, no shortness of breath. Labs, vitals, diagnostics, telemetry and documentation reviewed. Telemetry reviewed showing SB 50's. no acute event overnight. Patient would like to get out of bed and ambulate in the halls today. Review of Systems Review of Systems: All systems reviewed & are unremarkable except as noted in HPI & below Physical Exam Constitutional: well developed and well nourished; no acute distress and not ill appearing Neck: normal visual inspection and trachea midline Respiratory: normal respiratory effort, lungs clear to auscultation no cough Auscultation: lungs clear to auscultation bilaterally; no crackles, no rales, no rhonchi and no wheezes Cardiovascular: Rate/Rhythm: regular rate and regular rhythm Heart Sounds: normal S1, normal S2 and + murmur (+1/6 systolic ) Vessels: dorsalis pedis pulses present; no JVD Extremities: no edema Skin: no rashes, warm and dry Psychiatric: A+Ox3, euthymic affect Results & Data Vital Signs (Past 12 Hours) Vital Signs Temp Pulse Pulse Resp BP Pulse Ox O2 Del Method 06/07/24 03:01 36.3 C L 51 L 16 141/77 H 94 Room Air 06/07/24 00:13 59 L 06/06/24 23:08 36.6 C 60 17 148/77 H 92 Room Air Laboratory Results Intake and Output 06/06/24 06/07/24 06/07/24 22:59 06:59 14:59 Intake Total 1129.40 / 1430.00 250 / 1430.00 319.55 / 319.55 Output Total Balance 1128.40 / 1429.00 250 / 1429.00 319.55 / 319.55 Intake: IV 449.40 / 500.00 319.55 / 319.55 Heparin 32763 Unit/500 ml 25, 449.40 / 500.00 319.55 / 319.55 000 units In 500 ml @ 1,650 UNITS/HR 33 mls/hr IV .[id number] [facility] Rx#:[id number] Oral 680 / 930 250 / 930 Output: # Bowel Movements Other: # Unmeasured Voids 1 Weight 88.3 kg Weight Measurement Method [facility] (1) Chest pain Chest pain type: unspecified Qualified Code(s): R07.9 - Chest pain, unspecified (5) Parkinson's disease Dyskinesia presence: unspecified whether dyskinesia Fluctuating manifestations: unspecified whether manifestations fluctuate Qualified Code(s): G20.A1 - Parkinson's disease without dyskinesia, without mention of fluctuations
[2024-06-07 08:55] LABS: ANTI-Xa, UFH(UnfractionatedHep 0.72 IU/ml (0.3-0.7)
[2024-06-07 11:47] VITALS: BP 104/57; PULSE 64; RESP 17; TEMP 97.2; O2SAT 91
[2024-06-07 15:34] LABS: ANTI-Xa, UFH(UnfractionatedHep < 0.10 IU/ml (0.3-0.7)
--- NOTE | 2024-06-07 16:34 | Discharge Summary ---
Discharge Summary Date of Service June 07, 2024 Principal Dx & Hospital Course #1 = Principal Diagnosis (1) NSTEMI (non-ST elevated myocardial infarction): (2) Multiple vessel coronary artery disease: (3) Parkinson's disease: (4) Hypertension: (5) Hyperlipidemia: (6) Anxiety: (7) Depression: Plan This is a 79-year-old male with PMH of multivessel CAD, history of DE, dyslipidemia, COPD, Parkinson's disease, hypertension, mood disorder and other medical problems listed below presents from home with sudden onset chest pain that occurred this morning and was found to have an NSTEMI. #NSTEMI #Known multi-vessel CAD - Cath from [facility] in 10/28 revealed 100% lesion in mid-LAD, 80% lesion in mid-circumflex, 100% lesion in proximal RCA - has been medically managed due to comorbidities, complex disease -Substernal CP this AM, resolved after 3 ntgs -EKG with NSR, LAFB, moderate LVH, non-specific ST and T wave changes, EKG similar to previous -trops peaked and downtredned -Remains chest pain free Plan: -cardiology consulted, appreciate recs -given 48 hours of heparin and stopped today, continue aspirin, plavix, statin, Toprol -medical management per cardiology and patient at this time #Parkinson's Disease -Stable, continue carbidopa-levodopa -Home PT/OT helping with maintaining mobility #HTN Continue Toprol, Imdur #HLD Continue statin, Ezetimibe, Repatha SQ Q14 days #Mood disorder Stable, continue SSRI, clonazepam Q12H PRN Notes For Next Care Provider This is a 79-year-old male with PMH of multivessel CAD, history of DE, dyslipidemia, COPD, Parkinson's disease, hypertension, mood disorder and other medical problems listed below presents from home with sudden onset chest pain that occurred this morning and was found to have an NSTEMI. in the ED, cardiology was consulted, recommended heparin drip and medical management, admitted to medicine for further workup. On medicine, patient was given 48 hours of heparin as per cardiology recommendation. Medications were optimized per cardiology recommendations on 06/07/2024 patient medically stable for discharge with approval from cardiology. Medication Changes From Visit -none Admission HPI Per Admitting Provider This is a 79-year-old male with PMH of multivessel CAD, history of DE, dyslipidemia, prediabetes, COPD, Parkinson's disease, hypertension, mood disorder and other medical problems listed below presents from home with sudden onset chest pain that occurred this morning. Patient woke up around 430 this morning hungry and went downstairs to make himself a sandwich. After climbing back upstairs after the episode, patient developed severe substernal chest pressure and associated headache. Patient took a sublingual nitro and laid down but pain persisted so he took an additional nitro. States that pain lasted for approximately 30 minutes before fully resolving. During this time, called end of life [employer] who recommended he call an ambulance. Received spray nitro and morphine in the ambulance on the way to the hospital. Pain has not recurred since arrival. Has history of known severe multi-vessel CAD with cardiac cath at [facility] in October 2023. States he has been told by laboratory inspector in the past that they did not feel he was a very good candidate for cardiac catheterization and recommended medical management instead. Confirmed his wishes today and he does not wish to proceed with a cardiac catheterization, even if it is recommended. Okay with IV heparin. Reviewed POLST form from end-of-life event specialist at bedside t hat confirms he is a DNR (she will be providing a copy for the chart). Patient is living at home with PT/OT and services. Wishes to remain home under all circumstances and does not want placement. Currently remains comfortable, just fatigued. Denies any fever, chills, cough or congestion, chest pain, palpitations, shortness of breath, nausea, vomit, abdominal pain, dysuria, diarrhea or constipation. Discharge Exam Gen: A&O 3 NAD HEENT: NCAT, EOMI, not icteric. External ears normal. No rhinorrhea. Moist mucous membranes. Neck: Supple, full range of motion, no observable masses, No meningeal sign. Lungs: No Respiratory distress. CV: RRR, no edema. Abdomen: Soft, nondistended, No rebound tenderness. MSK: No joint swelling, no redness. Skin: No rashes, petechiae, lesions. Normal color per patient. Neuro: Normal Gait, Grossly intact. Psych: Appropriate for situation. Updated Medication List Medication Instructions Recorded Confirmed Type nitroglycerin 0.4 mg sublingual 0.4 mg sublingual DIRECTED PRN 01/17/13 06/05/24 History tablet (Nitrostat) Chest Pain #0 BTLS multivitamin 1 tab PO DAILY #0 tabs 09/20/14 06/05/24 History aspirin 81 mg tablet,delayed 81 mg PO QAM 90 days #90 tabs 04/19/17 06/05/24 History release (Pollo Low Dose Aspirin) coenzyme Q10 400 mg capsule (Co 400 mg PO DAILY 05/15/19 06/05/24 History Q-10) docusate sodium 100 mg capsule 100 mg PO DAILY PRN Constipation 05/15/19 06/05/24 History folic acid 400 mcg tablet 400 mcg PO QAM 05/15/19 06/05/24 History metoprolol succinate 25 mg 25 mg PO HS 05/15/19 06/05/24 History tablet,extended release 24 hr clonazepam 0.5 mg tablet (Klonopin) 0.5 mg PO Q12H PRN Anxiety #0 tabs 11/25/19 06/05/24 History ketoconazole 2 % topical cream 1 appln topical UD 11/25/19 06/05/24 History cholecalciferol (vitamin D3) 25 25 mcg PO QAM 02/05/22 06/05/24 History mcg (1,000 unit) tablet (Vitamin D3) polyethylene glycol 3350 17 gram 17 g PO DAILY Constipation 02/05/22 06/05/24 History oral powder packet (Miralax) calcium carbonate 500 mg PO DAILY 04/24/22 06/05/24 History citalopram 20 mg tablet 20 mg PO QAM #0 tabs 12/14/22 06/05/24 History carbidopa ER 25 mg-levodopa 100 mg 1 tab PO BID 03/25/24 06/05/24 History tablet,extended release clopidogrel 75 mg tablet 75 mg PO QAM 03/25/24 06/05/24 History isosorbide mononitrate 60 mg 60 mg PO QAM #30 tabs 04/08/24 06/05/24 Rx tablet,extended release 24 hr diclofenac sodium 1 % topical gel 4 g topical QID 05/07/24 06/05/24 History evolocumab 140 mg/mL subcutaneous 140 mg subcut .Q14 DAYS 05/07/24 06/05/24 History pen injector (Neha Carter) ezetimibe 10 mg tablet 10 mg PO QAM 05/07/24 06/05/24 History fluocinonide 0.05 % topical 1 applic topical DAILY PRN Skin 05/07/24 06/05/24 History solution Irritation ketoconazole 2 % topical cream 1 applic topical .2-3 TIMES WEEKLY 05/07/24 06/05/24 History melatonin 3 mg tablet 6 mg PO HS 05/07/24 06/05/24 History triamcinolone acetonide 0.1 % 1 applic topical BID 05/07/24 06/05/24 History topical cream Hospital Stay Data Consultations 06/05/24 08:43 ED Decision to Admit Stat 06/05/24 10:08 Consult Cardiology Routine Diagnostic Imagining Performed 06/05/24 12:45 CT head/brain wo con Routine Pending Results Patient Have Any Pending Studies at Discharge: No Discharge Instructions Given to Patient (Per Discharging Provider) 1. Please follow up with PCP and cardiology. Total Time Total Time Spent Total Time Spent (In Minutes): I spent a total of 35 minutes in direct patient care, including [id number] time with the patient and/or family, reviewing medical records, ordering and reviewing diagnostic tests, and coordinating care with other healthcare providers. This time includes: history taking, physical examination, medical decision making, counseling, ECG interpretation, imaging interpretation, lab interpretation, orders, and education, excluding time spent in the performance of separately billed services.
== END 2024-06-07 18:10 | disposition home or self-care (01) | DRG 282 ==
LOC: ED 06:36 → SUATTDRO 09:38 → EDINP 09:38 → 2E 13:32

== ENCOUNTER 2024-07-17 06:02 | Inpatient (IN) ==
[2024-07-17 06:38] LABS: Basophils # (auto) 0.07 K/uL (0.00-0.20); Basophils % (auto) 0.6 %; Eosinophils # (auto) 0.09 K/uL (0.00-0.50); Eosinophils % (auto) 0.7 %; Hematocrit (blood only) 42.4 % (42.0-52.0); Hemoglobin 14.7 g/dl (14.0-18.0); Immature Granulocytes # (auto) 0.03 K/uL (0.01-0.20); Immature Granulocytes % (auto) 0.2 %; Lymphocytes # (auto) 1.21 K/uL (1.20-3.40); Lymphocytes % (auto) 9.8 %; Mean Corpuscular Hemoglobin 30.1 pg (25.0-34.0); Mean Corpuscular Hgb Conc 34.7 g/dL (32.0-36.0); Mean Corpuscular Volume 86.7 fL (80.0-100.0); Mean Platelet Volume 10.1 fL (9.4-12.4); Monocytes # (auto) 0.84 K/uL (0.11-0.59); Monocytes % (auto) 6.8 %; Neutrophils # (auto) 10.15 K/uL (1.40-6.50); Neutrophils % (auto) 81.9 %; Platelet Count 209 K/uL (130-400); RDW Coefficient of Variation 13.3 % (11.5-14.5); RDW Standard Deviation 41.4 fL (36.4-46.3); Red Blood Count 4.89 M/uL (4.70-6.10); White Blood Count 12.39 K/ul (4.8-10.8)
[2024-07-17 06:48] LABS: Albumin Globulin Ratio 1.8 (0.9-2); Albumin Level 4.2 gm/dl (3.4-5.0); BUN Creatinine Ratio 21.1 (10-20); Bilirubin,Total 0.6 mg/dl (0.2-1.0); Calcium 9.4 mg/dl (8.6-10.3); Creatinine Clr Calc Pharmacy 71.7 ml/min; Globulin 2.4 gm/dl (2.5-4.0); Magnesium 2.1 mg/dl (1.7-2.4); Total Protein 6.6 gm/dl (6.0-8.3)
[2024-07-17 06:55] LABS: Troponin I High Sensitivity 8.1 pg/ml (0-20)
--- NOTE | 2024-07-17 07:03 | Emergency Department Note ---
Impression & Plan Syncope and collapse, Parkinson's disease ED Provider Note Provider: Justo Carpenter MD CHIEF COMPLAINT: Syncope, fall, bloody stool HISTORY OF PRESENT ILLNESS: Patient is a 79-year-old gentleman history of Parkinson's disease, CAD with recent NSTEMI, and hypertension presenting here today after a syncopal event. Patient just finished using the bathroom at home this morning. Got up and felt warm and dizzy and then syncopized to the ground for a few seconds. Son heard this and immediately went up and found his father on the floor. Did take a few minutes to get into the room as he fell against the door but patient rested on the floor. Was keenly awake. No seizure-like activity reported. Patient states he might of bumped his nose but denies any headache, current dizziness, nose injury/bloody nose, neck pain, chest pain, Lucho pain, pelvic pain, or extremity pain. There is a question if he may have had a little bit of right hip discomfort initially on scene but denies any here. Has not difficulty getting him up and EMS was called and brought him here for further evaluation. Denies palpitations or chest pain at any time today. Has been under some stress with family events at home. Does report has been constipated and finally had a enema yesterday with good effect. States there was some blood in the stool yesterday. Denies any abdominal pain now. Did have a little bit of stomach upset yesterday. PAST MEDICAL HISTORY: As noted above MEDICATIONS: Reviewed home medications includes aspirin and Plavix SOCIAL HISTORY: Lives at home with family PHYSICAL EXAM: GENERAL: alert and oriented in no acute distress on stretcher Head: normocephalic and atraumatic EYES: No injection, discharge or icterus. PERRL, EOMI. NECK: Trachea midline. Supple without midline cervical tenderness. C-collar initially in place. ENT: Mucous membranes pink and moist. Pharynx without erythema or exudate. LUNGS: Airway patent. No retractions. Breath sounds clear with good air entry bilaterally. HEART: Regular rate and rhythm. No chest wall tenderness ABDOMEN: Soft and non-tender, without guarding or rebound. Stable pelvis. No flank tenderness. SKIN: Acyanotic, warm, dry, without rashes EXTREMITIES: Without swelling, tenderness or deformity with good range of motion prickly of the lower extremities and hips. NEUROLOGICAL: No focal deficits. No aphasia. No facial droop or slurred speech. Normal strength and tone in the extremities. Sensation to gross touch normal. Ambulatory. EK bpm normal sinus rhythm with sinus arrhythmia. Left axis. No acute ST segment elevation or depression with QTc of 429. CONTINUOUS CARDIAC MONITORING: was ordered and showed a heart rate of 60s to 80s bpm in normal sinus rhythm with sinus arrhythmia times Patient's laboratory studies and imaging reviewed. Differential includes Vasovagal event, dehydration, infection, hypoglycemia, electrolyte abnormalities, cardiac sources, intracerebral event, pulmonary embolism, seizure, toxicologic, neurologic, as well as other pathologies. IMPRESSION/MEDICAL DECISION MAKING: Patient is on aspirin and Plavix. Single event but no seizure-like activity and keenly awake and alert. No focal neurological deficit. Doubt CVA. Denies fever. No meds yet this morning. No significant pain complaints at this time. Did have some constipation and after enema bit of bloody stool yesterday. Blood counts sent. Will complete a CT of the head cervical spine and chest abdomen pelvis include traumatic injury, underlying PE, or intra-abdominal pathology that could explain the undisclosed irritation He had a bit of bloody stool. Slight leukocytosis today of 12.3, however denies any other infectious symptoms. No anemia. Normal platelet count. No significant light abnormality signs of renal dysfunction. No troponin elevation today which is reassuring given the significant elevation of the past. No transaminitis. Doubt pancreatitis. Respiratory viral panel negative. CT imaging without significant acute findings beyond some slight inflammation noted of the lungs nonspecific as well as some nonspecific colon inflammation. No clear obstruction or diverticulitis. Likely viral in nature. Did discuss with him however given his syncopal episode and significant cardiac history do recommend we observe him. Hospitalist team was consulted. UA pending collection. DIAGNOSIS: Syncope DISPOSITION: Hospitalist will evaluate Patient was agreeable with this plan. Past Med/Surg History Problem List (Updated 07/17/24 @ 12:26 by Dallas Bennett) ASCVD (arteriosclerotic cardiovascular disease) Syncope Orthostatic hypotension NSTEMI (non-ST elevated myocardial infarction) SOB (shortness of breath) on exertion Parkinson's disease Elevated troponin I level (Acute) Chest pain (Acute) Anxiety Depression Hyperlipidemia CAD (coronary artery disease) Peripheral arterial disease Hypertension (Chronic) Medical History Mixed hyperlipidemia Multiple vessel coronary artery disease Atrial flutter Inguinal hernia Surgical History S/P tonsillectomy Family History Other Asthma Denies family history of Hypertension Social History Smoking Status: Never smoker Tobacco Type: Cigarettes Second Hand Exposure: No; Do You Dip or Chew Tobacco: No; Hx Alcohol Use: No Hx Substance Use: No Preferred Language: Stateless Communication Ability: Effective Automatic Maintainer Required: No Beliefs That Will Affect Care: None Current Living Situation: Alone Feels Safe at Home: Yes Assistive Devices: None Allergies Allergies Allergy/AdvReac Type Severity Reaction Status Date / Time bee venom protein (honey bee) Allergy Severe SWELLING, Verified 05/07/24 00:48 INTENSE ITCHING, HIVES gabapentin Allergy Unknown Unknown Verified 05/07/24 00:48 atorvastatin AdvReac Intermediate MUSCLE PAIN Verified 05/07/24 00:48 carbidopa [From Sinemet] AdvReac Intermediate Unknown/Family Verified 05/07/24 00:48 says only Sinemet, haven't tried Sinemet CR. levodopa [From Sinemet] AdvReac Intermediate Unknown/Family Verified 05/07/24 00:48 says only Sinemet, haven't tried Sinemet CR. Home Meds Home Medications Medication Instructions Recorded Confirmed nitroglycerin 0.4 mg sublingual 0.4 mg sublingual DIRECTED PRN 01/17/13 07/17/24 tablet (Nitrostat) Chest Pain #0 BTLS multivitamin 1 tab PO DAILY #0 tabs 09/20/14 07/17/24 aspirin 81 mg tablet,delayed 81 mg PO QAM 90 days #90 tabs 04/19/17 07/17/24 release (Pollo Low Dose Aspirin) coenzyme Q10 400 mg capsule (Co 400 mg PO DAILY 05/15/19 07/17/24 Q-10) docusate sodium 100 mg capsule 100 mg PO DAILY PRN Constipation 05/15/19 07/17/24 folic acid 400 mcg tablet 400 mcg PO QAM 05/15/19 07/17/24 metoprolol succinate 25 mg 25 mg PO HS 05/15/19 07/17/24 tablet,extended release 24 hr clonazepam 0.5 mg tablet (Klonopin) 0.5 mg PO Q12H PRN Anxiety #0 tabs 11/25/19 07/17/24 ketoconazole 2 % topical cream 1 appln topical UD 11/25/19 07/17/24 cholecalciferol (vitamin D3) 25 25 mcg PO UD 02/05/22 07/17/24 mcg (1,000 unit) tablet (Vitamin D3) polyethylene glycol 3350 17 gram 17 g PO DAILY Constipation 02/05/22 07/17/24 oral powder packet (Miralax) calcium carbonate 500 mg PO UD 04/24/22 07/17/24 citalopram 20 mg tablet 20 mg PO QAM #0 tabs 12/14/22 07/17/24 carbidopa ER 25 mg-levodopa 100 mg 1 tab PO BID 03/25/24 07/17/24 tablet,extended release clopidogrel 75 mg tablet 75 mg PO QAM 03/25/24 07/17/24 diclofenac sodium 1 % topical gel 4 g topical QID 05/07/24 07/17/24 evolocumab 140 mg/mL subcutaneous 140 mg subcut .Q14 DAYS 05/07/24 07/17/24 pen injector (Nhea Carter) ezetimibe 10 mg tablet 10 mg PO QAM 05/07/24 07/17/24 fluocinonide 0.05 % topical 1 applic topical DAILY PRN Skin 05/07/24 07/17/24 solution Irritation ketoconazole 2 % topical cream 1 applic topical .2-3 TIMES WEEKLY 05/07/24 07/17/24 melatonin 3 mg tablet 6 mg PO HS 05/07/24 07/17/24 triamcinolone acetonide 0.1 % 1 applic topical BID 05/07/24 07/17/24 topical cream Previous Rx's Medication Instructions Recorded isosorbide mononitrate 60 mg 60 mg PO QAM #30 tabs 04/08/24 tablet,extended release 24 hr Results & Data (ED) Vital Signs Vital Signs - 24 hr 07/17/24 06:09 07/17/24 06:14 07/17/24 06:16 Temperature 36.9 C Temperature Source Oral Pulse Rate 63 Pulse Rate [Right Finger] Pulse Rate from SpO2 Sensor Pulse Strength Normal Pulse Strength [Right Finger] Respiratory Rate 18 Respiratory Effort / Characteristics Non-Labored Spontaneous Respiratory Depth Normal Respiratory Pattern Regular Blood Pressure 150/102 H Blood Pressure [Right Arm] Blood Pressure Mean 118 Blood Pressure Mean [Right Arm] Pulse Oximetry 95 95 95 Oxygen Delivery Method Room Air Room Air Sepsis Recent Fever Within 48 Hours No Sepsis New/Unexplained Change in Mental Status No Sepsis Action Taken by Nursing No Action Required 07/17/24 06:16 07/17/24 08:18 07/17/24 10:35 Temperature Temperature Source Pulse Rate 62 58 L Pulse Rate [Right Finger] 57 L Pulse Rate from SpO2 Sensor 57 L Pulse Strength Pulse Strength [Right Finger] Respiratory Rate 19 18 Respiratory Effort / Characteristics Respiratory Depth Respiratory Pattern Blood Pressure 156/83 H Blood Pressure [Right Arm] 152/77 H Blood Pressure Mean 107 Blood Pressure Mean [Right Arm] 102 Pulse Oximetry 93 94 Oxygen Delivery Method Room Air Sepsis Recent Fever Within 48 Hours Sepsis New/Unexplained Change in Mental Status Sepsis Action Taken by Nursing 07/17/24 11:37 Temperature Temperature Source Pulse Rate Pulse Rate [Right Finger] 60 Pulse Rate from SpO2 Sensor Pulse Strength Pulse Strength [Right Finger] Normal Respiratory Rate 18 Respiratory Effort / Characteristics Non-Labored Spontaneous Respiratory Depth Normal Respiratory Pattern Regular Blood Pressure Blood Pressure [Right Arm] 114/64 Blood Pressure Mean Blood Pressure Mean [Right Arm] 80 Pulse Oximetry 96 Oxygen Delivery Method Room Air Sepsis Recent Fever Within 48 Hours Sepsis New/Unexplained Change in Mental Status Sepsis Action Taken by Nursing Laboratory Data 07/17/24 06:15 07/17/24 06:15 Lab Results 07/17/24 07/17/24 Range/Units 06:15 09:55 WBC 12.39 H (4.8-10.8) K/ul RBC 4.89 (4.70-6.10) M/uL Hgb 14.7 (14.0-18.0) g/dl Hct 42.4 (42.0-52.0) % MCV 86.7 (80.0-100.0) fL MCH 30.1 (25.0-34.0) pg MCHC 34.7 (32.0-36.0) g/dL RDW Std Deviation 41.4 (36.4-46.3) fL RDW Coeff of Lanre 13.3 (11.5-14.5) % Plt Count 209 (130-400) K/uL MPV 10.1 (9.4-12.4) fL Immature Gran % (Auto) 0.2 % Neut % (Auto) 81.9 % Lymph % (Auto) 9.8 % Lanier % (Auto) 6.8 % Eos % (Auto) 0.7 % Baso % (Auto) 0.6 % Neut # (Auto) 10.15 H (1.40-6.50) K/uL Lymph # (Auto) 1.21 (1.20-3.40) K/uL Lanier # (Auto) 0.84 H (0.11-0.59) K/uL Eos # (Auto) 0.09 (0.00-0.50) K/uL Baso # (Auto) 0.07 (0.00-0.20) K/uL Immature Gran # (Auto) 0.03 (0.01-0.20) K/uL Sodium 138 (136-145) mmol/L Potassium 4.0 (3.5-5.1) mmol/L Chloride 105 (98-107) mmol/L Carbon Dioxide 25 (21-32) mmol/L Anion Gap 8 (3-11) BUN 20 (6-23) mg/dl Creatinine 0.95 (0.6-1.4) mg/dl Est Cr Clr Drug Dosing 71.7 ml/min eGFR 81.42 BUN/Creatinine Ratio 21.1 H (10-20) Glucose 127 H (70-99(Fasting)) mg/dl Calcium 9.4 (8.6-10.3) mg/dl Magnesium 2.1 (1.7-2.4) mg/dl Total Bilirubin 0.6 (0.2-1.0) mg/dl AST 15 (13-39) U/L ALT 17 (7-52) U/L Alkaline Phosphatase 80 (34-104) U/L Troponin I High Sens 8.1 (0-20) pg/ml Total Protein 6.6 (6.0-8.3) gm/dl Albumin 4.2 (3.4-5.0) gm/dl Globulin 2.4 L (2.5-4.0) gm/dl Albumin/Globulin Ratio 1.8 (0.9-2) Adenovirus (PCR) Not Detected (NotDetected) B. pertussis DNA (PCR) Not Detected (NotDetected) B.parapertussis DNA PCR Not Detected (NotDetected) C. pneumoniae DNA (PCR) Not Detected (NotDetected) Coronavirus OC43 (PCR) Not Detected (NotDetected) Coronavirus HKU1 (PCR) Not Detected (NotDetected) Coronavirus 229E (PCR) Not Detected (NotDetected) SARS-CoV-2 (PCR) Not Detected (NotDetected) Coronavirus NL63 (PCR) Not Detected (NotDetected) Human Metapneumovir PCR Not Detected (NotDetected) Influenza Type A (PCR) Not Detected (NotDetected) Influenza Type B (PCR) Not Detected (NotDetected) M. pneumoniae (PCR) Not Detected (NotDetected) Parainfluenza 1 (PCR) Not Detected (NotDetected) Parainfluenza 2 (PCR) Not Detected (NotDetected) Parainfluenza 3 (PCR) Not Detected (NotDetected) Parainfluenza 4 (PCR) Not Detected (NotDetected) RSV (PCR) Not Detected (NotDetected) Entero/Rhino (PCR) Not Detected (NotDetected) Administered Medications Polyethylene Glycol (Polyethylene (Miralax) 17 Gm Pack) 17 gm PO DAILY PHUONG Stop: 08/16/24 11:59 Last Admin: 07/17/24 12:17 Dose: 17 gm Documented By: MARTIN Senna/Docusate Sodium (Docusate Sodium/Senna 50/8.6mg Tab) 1 tab PO QAM PHUONG Stop: 08/16/24 11:59 Last Admin: 07/17/24 12:08 Dose: 1 tab Documented By: MARTIN Discontinued Medications Bisacodyl (Bisacodyl 10 Mg Supp) 10 mg NC NOW STA Stop: 07/17/24 11:47 Last Admin: 07/17/24 12:17 Dose: Not Given Documented By: MARTIN Carbidopa/Levodopa (Carbidopa/Levodopa 25/100mg Ext Rel Tab) 1 tab PO NOW ONE Stop: 07/17/24 09:23 Last Admin: 07/17/24 10:33 Dose: 1 tab Documented By: Ioversol (Optiray 320 125ml) 112 ml IV ONCE ONE Stop: 07/17/24 07:35 Last Admin: 07/17/24 07:35 Dose: 112 ml Documented By: TIFFANIE Isosorbide Mononitrate (Isosorbide Lanier Extended Rel 60 Mg Tabcr) 60 mg PO NOW ONE Stop: 07/17/24 09:31 Last Admin: 07/17/24 10:33 Dose: 60 mg Documented By: MR Imaging Data Radiologist's Impression: Abdomen/Pelvis CT 07/17/24 06:59 EXAM: CT abd pelvis IV con only CLINICAL HISTORY: syncope, bloody stool TECHNIQUE: Contrast-enhanced CT of the abdomen and pelvis was performed, with the following protocol: axial images with, and reconstructed coronal and sagittal images. Intravenous contrast was administered (112ml opti 320). One of the following dose reduction techniques was utilized for this exam: Automated exposure control, adjustment of the mA and/or kV according to patient size, and use of iterative reconstruction. COMPARISON: CT dated 05/07/2024. FINDINGS: There is diffuse recto-segmoid circumferential mural thickening noted with submucosal edema and stranding of the surrounding fat planes, denoting acute colitis. Mild wall thickening also noted at the descending colon and segment of transverse colon. Multiple colonic diverticulosis with no diverticulitis noted. Abdomen: Liver: Average in size, shape, and density. Multiple Bilobar well-defined thin-walled cystic lesions were noted with no significant post-contrast enhancement, largest measures 4x3 cm. No focal lesions, cysts, or masses were identified. Hepatic vasculature and biliary ducts are unremarkable. Gallbladder and Biliary System: The gallbladder is normal in size and shape. No wall thickening, pericholecystic fluid, or gallstones were identified. The common bile duct is normal in caliber without dilation. Pancreas: Pancreatic head, body, and tail are visualized and appear normal in size and density. No pancreatic masses or calcifications were noted. The pancreatic duct is not dilated. Spleen: Normal in size, shape, and density. No splenic lesions or masses were identified. Appendix: The appendix is normal in size without molly appendiceal fat stranding, and without an appendicolith. No evidence of appendiceal abscess or perforation. Kidneys and Adrenal Glands: Right renal few cysts, largest upper pole cortical cyst noted measuring about 7.5x6.3 cm. Both kidneys are normal in size, shape, and position. Cortical thickness is within normal limits. No renal calculi or hydronephrosis. Adrenal glands are unremarkable, with no evidence of masses or hyperplasia. Diffuse aortoiliac atherosclerotic changes noted. Pelvis: Urinary Bladder: Normal in contour with mild circumferential increase wall thickness measures 5.5 mm. No intraluminal lesions were identified. Prostate: Mildly enlarged in size with concretions of calcifications noted. No focal lesions or masses were identified. Seminal Vesicles: Normal in size and appearance. No abnormalities were noted. Rectum and Sigmoid Colon: Normal wall thickness and no evidence of mass. Peritoneal and Retroperitoneal Structures: No free fluid or abnormal fluid collections were identified within the abdomen or pelvis. No lymphadenopathy was noted. Bowel: The visualized bowel loops are normal in caliber and appearance. No evidence of bowel obstruction or wall thickening. Bones and Soft Tissues: Moderate spondylosis of the lumbar spine noted. The pelvic bones and soft tissues are unremarkable. No fractures or abnormal masses were identified. IMPRESSION: 1. Diffuse rectosegmoid and to lesser extent descending and segmental area of transverse colon mural thickening suggestive of acute colitis, follow up and laboratory assessment is advised, progressed. 2. Multiple Bilobar well-defined thin-walled simple cysts, stable. 3. Right renal few cysts largest exophytic cyst of Bosniak type I, stable. 4. Mild prostatomegaly noted, stable. 5. Diffuse aortoiliac atherosclerotic changes, stable. 6. Mild urinary bladder wall thickening may be due to underdistension/ cystitis, new finding. Electronically signed by Devante Vyas 07-17-2024 08:[address] 07/17/24 06:59 EXAM: CT cervical spine wo con CLINICAL HISTORY: fall TECHNIQUE: CT scan of the cervical spine was performed without the administration of intravenous contrast. Contiguous axial images were obtained from the skull base to the upper thoracic spine. Coronal and sagittal reformatted images were also reviewed. One of the following dose reduction techniques was utilized for this exam. Automated exposure control, adjustment of the mA and/or kV according to patient size, and use of iterative reconstruction. Total DLP 3511.61 mGy.cm COMPARISON: No previous studies are available for comparison. FINDINGS: Vertebrae: Straightened cervical curve. Multiple marginal bony hypertrophy. C5 lower end plate sclerosis with lucent area of likely schmorl's node. No evidence of acute fracture or dislocation. The cortical and trabecular bone patterns are normal. No signs of lytic or sclerotic lesions. Normal configuration of the posterior elements. Intervertebral Discs: Reduced intervertebral disc spaces. No calcifications or ossifications noted within the discs. Facet Joints: Mainly Left upper cervical facet joints arthropathy. No evidence of dislocation, or subluxation. Neural Foramina: Mainly C3-C4 bilateral neural foraminal narrowing. Prevertebral Soft Tissues: The prevertebral soft tissues are normal in thickness without evidence of mass or abnormal fluid collection. Additional Findings: No other significant findings are noted in the visualized soft tissue structures or bony elements. Apical mild paraseptal emphysema. Atheromatous calcifications of carotid and vertebral vessels. IMPRESSION: 1. Degenerative changes of cervical spine. 2. No evidence of acute fracture, or dislocation. Electronically signed by Devante Vyas 07-17-2024 09:15 AM Chest CTA 07/17/24 06:59 EXAM: CT angio chest PE protocol CLINICAL HISTORY: PE, syncope, fall. TECHNIQUE: Contiguous 3.[address] angiographic images of the chest were acquired with the administration of intravenous contrast. Coronal and sagittal reconstructions were obtained. 112ml Optiray 320 was administered for post-contrast images. One of these 3D techniques was utilized: Maximum Intensity Pixel (MIP), 3D Reconstructed Images, Volume Rendered Images, Surface Shaded Rendering. One of the following dose reduction techniques were utilized for this exam: Automated exposure control, adjustment of the mA and/or kV according to patient size, and use of iterative reconstruction. COMPARISON: last chest xray dated 06/05/2024. FINDINGS: Pulmonary Arteries: The pulmonary trunk measures 2.9cm, right pulmonary artery measures 2.5cm suggesting pulmonary arterial hypertension. Pulmonary arteries are normally opacified. No evidence of pulmonary embolism. No stenosis or filling defects. Aorta: Mild atherosclerotic changes. The thoracic aorta is normal in caliber. No evidence of aneurysm, or dissection. Aortic arch and descending thoracic aorta are unremarkable. Superior Vena Cava (SVC) and Inferior Vena Cava (IVC): Normal opacification and caliber. No evidence of thrombus or obstruction. Mediastinum: No mediastinal mass or lymphadenopathy. Normal appearance of the thymus. Heart: Normal size and morphology of the heart. No pericardial effusion. Lungs: Bilateral diffuse ground glass attenuation with associated reticular thickening and thickened parenchymal bands. Mild posterior subpleural reticular changes, likely positional. Mild bilateral apical paraseptal emphysema. No evidence masses. No pleural effusion or thickening. Bones: No fractures or lytic/sclerotic lesions of the visualized bony structures. Normal alignment and bone density. Soft Tissues: Normal appearance of the visualized soft tissues. No abnormal masses or fluid collections. Upper abdomen show multiple hepatic hypodense lesions, could be cysts. IMPRESSION: 1. No evidence of pulmonary embolism. 2. Dilated pulmonary trunk and right artery suggest pulmonary hypertension 3. Bilateral diffuse segmental areas of ground glass attenuation, which could be due to inflammatory/infectious etiology. Advice clinical correlation. 4. Mild bilateral apical paraseptal emphysema. 5. These findings are better appreciated by current CT. Electronically signed by Devante Vyas 07-17-2024 08:[address] 07/17/24 06:59 EXAM: CT head/brain wo con CLINICAL HISTORY: syncope, fall TECHNIQUE: Axial non-contrast CT scan of the brain was performed from the skull base to the high parietal region. One of the following dose reduction techniques were utilized for this exam: Automated exposure control, adjustment of the mA and/or kV according to patient size, use of iterative reconstruction. COMPARISON: Compared to previous study done at 06/05/2024. FINDINGS: Brain Parenchyma: Normal attenuation of the cerebral hemispheres, cerebellum, and brainstem. No evidence of acute infarct, hemorrhage, or mass effect. No abnormal areas of hypo- or hyperattenuation. Ventricular System: Mild dilatation of the supratentorial ventricular system. No evidence of hydrocephalus. Subarachnoid Spaces: Widened cortical sulci and prominent sylvian fissures. No evidence of subarachnoid hemorrhage or extra-axial fluid collections. Cerebellum and Brainstem: Normal size and signal. No masses, lesions, or areas of abnormal signal. Orbits: Normal appearance of the globes, optic nerves, and extraocular muscles. No evidence of orbital masses or abnormal signal. Sinuses: Clear paranasal sinuses. No evidence of sinusitis or mucosal thickening. Mastoid Air Cells: Clear mastoid air cells. No evidence of mastoiditis. Skull: Normal skull morphology. IMPRESSION: Mild age matched brain involutional changes (stable). Electronically signed by Devante Vyas 07-17-2024 08:31 AM Discharge Plan Visit Data Chief Complaint: Syncope ED Provider: Justo Carpenter Discharge Problem: Syncope and collapse, Parkinson's disease Patient Disposition: Being Evaluated by Hospitalist Forms Stand Alone Forms: [facility] ActionX Prescriptions Prescriptions: No Action nitroglycerin [Nitrostat] 0.4 mg Tablet, Sublingual 0.4 mg sublingual DIRECTED PRN (Reason: Chest Pain) Qty: 0 Rx Instructions: 1 TAB EVERY 5 MINUTES, NEEDED FOR CHEST PAIN, UP TO 3 TABS PER EPISODE. multivitamin Tablet 1 tab PO DAILY Qty: 0 aspirin [Pollo Low Dose Aspirin] 81 mg Tablet,Delayed Release (Dr/Ec) 81 mg PO QAM 90 Days Qty: 90 clonazepam [Klonopin] 0.5 mg tablet 0.5 mg PO Q12H PRN (Reason: Anxiety) Qty: 0 citalopram 20 mg tablet 20 mg PO QAM Qty: 0 coenzyme Q10 [Co Q-10] 400 mg capsule 400 mg PO DAILY docusate sodium 100 mg capsule 100 mg PO DAILY PRN (Reason: Constipation) folic acid 400 mcg tablet 400 mcg PO QAM metoprolol succinate 25 mg tablet extended release 24 hr 25 mg PO HS ketoconazole 2 % cream 1 appln TOP UD Rx Instructions: APPLY TO SCALP 2-3 TIMES PER WEEK polyethylene glycol 3350 [Miralax] 17 gram Powder In Packet 17 g PO DAILY Rx Instructions: IF AFTER ONE WEEK, BOWELS ARE NOT MOVING WELL, TAKE TWICE A DAY. cholecalciferol (vitamin D3) [Vitamin D3] 25 mcg (1,000 unit) Tablet 25 mcg PO UD Rx Instructions: 25 mcg po qam. pt isnt sure if he still takes vitamin D. Has filled history of 03/19 30 day supply calcium carbonate 500 mg calcium (1,250 mg) Tablet 500 mg PO UD Rx Instructions: 500 mg po daily. Pt isnt sure if he still takes this, no fill history/otc Repatha SureClick 140 mg/mL pen injector 140 mg SUBCUT .Q14 DAYS Rx Instructions: REMOVE FROM REFRIGERATOR 30 MINUTES PRIOR TO INJECTION ezetimibe 10 mg tablet 10 mg PO QAM melatonin 3 mg Tablet 6 mg PO HS fluocinonide 0.05 % Solution 1 applic TOPICAL DAILY PRN (Reason: Skin Irritation) Rx Instructions: APPLY TO SCALP DAILY SUNDAY THRU SUNDAY, NEEDED, FOR REDNESS AND FLAKING. diclofenac sodium 1 % Gel 4 g TOPICAL QID Rx Instructions: APPLY 4GM TOPICALLY TO RIGHT SHOULDER 4 TIMES A DAY. ketoconazole 2 % Cream 1 applic TOPICAL .2-3 TIMES WEEKLY Rx Instructions: APPLY TO FACE 2-3 TIMES PER WEEK. triamcinolone acetonide 0.1 % Cream 1 applic TOPICAL BID Rx Instructions: APPLY TOPICALLY TO AFFECTED AREA 2 TIMES A DAY. clopidogrel 75 mg tablet 75 mg PO QAM carbidopa-levodopa 25-100 mg tablet extended release 1 tab PO BID isosorbide mononitrate 60 mg Tablet Extended Release 24 Hr 60 mg PO QAM Qty: 30 1RF Referrals Referrals: Kaz Robledo MD [Primary Care Provider] -
[2024-07-17] MEDS: OPTIRAY 320 125ml IV ONE (07:35)
--- NOTE | 2024-07-17 08:31 | CT Scan Report ---
EXAM: CT head/brain wo con CLINICAL HISTORY: syncope, fall TECHNIQUE: Axial non-contrast CT scan of the brain was performed from the skull base to the high parietal region. One of the following dose reduction techniques were utilized for this exam: Automated exposure control, adjustment of the mA and/or kV according to patient size, use of iterative reconstruction. COMPARISON: Compared to previous study done at 06/05/2024. FINDINGS: Brain Parenchyma: Normal attenuation of the cerebral hemispheres, cerebellum, and brainstem. No evidence of acute infarct, hemorrhage, or mass effect. No abnormal areas of hypo- or hyperattenuation. Ventricular System: Mild dilatation of the supratentorial ventricular system. No evidence of hydrocephalus. Subarachnoid Spaces: Widened cortical sulci and prominent sylvian fissures. No evidence of subarachnoid hemorrhage or extra-axial fluid collections. Cerebellum and Brainstem: Normal size and signal. No masses, lesions, or areas of abnormal signal. Orbits: Normal appearance of the globes, optic nerves, and extraocular muscles. No evidence of orbital masses or abnormal signal. Sinuses: Clear paranasal sinuses. No evidence of sinusitis or mucosal thickening. Mastoid Air Cells: Clear mastoid air cells. No evidence of mastoiditis. Skull: Normal skull morphology. IMPRESSION: Mild age matched brain involutional changes (stable). Electronically signed by Devante Vyas 07-17-2024 08:31 AM
--- NOTE | 2024-07-17 08:44 | CT Scan Report ---
EXAM: CT angio chest PE protocol CLINICAL HISTORY: PE, syncope, fall. TECHNIQUE: Contiguous 3.[address] angiographic images of the chest were acquired with the administration of intravenous contrast. Coronal and sagittal reconstructions were obtained. 112ml Optiray 320 was administered for post-contrast images. One of these 3D techniques was utilized: Maximum Intensity Pixel (MIP), 3D Reconstructed Images, Volume Rendered Images, Surface Shaded Rendering. One of the following dose reduction techniques were utilized for this exam: Automated exposure control, adjustment of the mA and/or kV according to patient size, and use of iterative reconstruction. COMPARISON: last chest xray dated 06/05/2024. FINDINGS: Pulmonary Arteries: The pulmonary trunk measures 2.9cm, right pulmonary artery measures 2.5cm suggesting pulmonary arterial hypertension. Pulmonary arteries are normally opacified. No evidence of pulmonary embolism. No stenosis or filling defects. Aorta: Mild atherosclerotic changes. The thoracic aorta is normal in caliber. No evidence of aneurysm, or dissection. Aortic arch and descending thoracic aorta are unremarkable. Superior Vena Cava (SVC) and Inferior Vena Cava (IVC): Normal opacification and caliber. No evidence of thrombus or obstruction. Mediastinum: No mediastinal mass or lymphadenopathy. Normal appearance of the thymus. Heart: Normal size and morphology of the heart. No pericardial effusion. Lungs: Bilateral diffuse ground glass attenuation with associated reticular thickening and thickened parenchymal bands. Mild posterior subpleural reticular changes, likely positional. Mild bilateral apical paraseptal emphysema. No evidence masses. No pleural effusion or thickening. Bones: No fractures or lytic/sclerotic lesions of the visualized bony structures. Normal alignment and bone density. Soft Tissues: Normal appearance of the visualized soft tissues. No abnormal masses or fluid collections. Upper abdomen show multiple hepatic hypodense lesions, could be cysts. IMPRESSION: 1. No evidence of pulmonary embolism. 2. Dilated pulmonary trunk and right artery suggest pulmonary hypertension 3. Bilateral diffuse segmental areas of ground glass attenuation, which could be due to inflammatory/infectious etiology. Advice clinical correlation. 4. Mild bilateral apical paraseptal emphysema. 5. These findings are better appreciated by current CT. Electronically signed by Devante Vyas 07-17-2024 08:43 AM
--- OUTSIDE RECORDS SUMMARY | 2024-07-17 08:55 | External Medical Summary | Summary of Care ---
Author Name Unknown Organization [facility] Address [address] [place] [address] Phone [phone] Care Team Providers Care Mill Supervisor Name Role Phone Kaz Robledo MD Primary Care Provider [phone] Reason for Visit * Reason Comments Psychotherapy Encounter Details Date Type Department Care Team (Late st Contact Info) Description 07/14/2024 9:30 AM EDT Telemedicine Psychology [facility] [address] [place] [address] Page Mccurdy, [facility] [address] [place] [address] Adjustment disorder with mixed anxiety and depressed mood* Allergies Active Allergy Reactions Criticality Noted Date Comments Atorvastatin Muscle pain 12/11/2016 Bee Stings 02/21/1999 Hives,intense itching,edema Gabapentin 10/02/2023 "Couldn't handle it" documented as of this encounter (statuses as of 07/14/2024) Medications CALCIUM 500 MG PO TABS Take 1 Tablet by mouth in the morning. 60 Tab 0 05/02/20 10 Active docusate sodium (COLACE) 100 MG Capsule [...] day 850 g 1 12/30/19 21 Active Additional Information Patient taking differently:17 g OralBID (.AM/PM), Dissolve one heaping tablespoon in 8 ounces of water or juice. If after one week, bowels are not moving well, take twice a day, Reported on 07/10/2024 Melatonin 3 MG Oral Tablet Disintegrating Take [...] prior to injection. 2 mL 11 5 11:01 AM EDT 04/16/20 24 Active Citalopram Hydrobromide 20 MG [...] 4 5:47 PM EST 04/23/20 24 Active Clopidogrel Bisulfate 75 [...] for Anxiety. 60 Tablet 05/23/19 25 Active Carbidopa-Levodopa ER 25-100 MG Oral Tablet Extended Release (Sinemet CR)Indications:Par kinson's disease without dyskinesia or fluctuating manifestations (HCC) Take 1 tablet per mouth at 8AM-11:30AM-5:30 PM 270 Tablet 3 5 6:16 PM EST 06/23/19 25 Active Nitroglycerin 0.4 MG Sublingual Tablet Sublingual (Nitrostat)Indicat ions:Stable angina (HCC) Place 1 Tablet under the tongue every 5 minutes as needed for Pain, Chest. Call 911 if you require more than 3 consecutive doses 25 Tablet 5 5 5:35 PM EST 07/09/19 25 Active documented as of this encounter (statuses as of 07/14/2024) Active Problems Problem Noted Date Diagnosed Date Heart failure 06/16/2024 Paroxysmal atrial flutter 06/16/2024 Polyneuropathy in diseases classified elsewhere 06/16/2024 Depression, unspecified 06/16/2024 Orthostatic hypotension 04/10/2024 Carotid stenosis, asymptomatic, right [...] EDT): Continues on celexa with prn klonopin Anxiety 08/03/2022 Other atherosclerosis of marti ana [...] with cardiology [facility] Dyslipidemia, goal LDL below 100 04/15/2009 Overview (04/15/2009): Per Lipid Taxonomy. Hearing loss 07/09/2007 documented as of this encounter (statuses as of 07/14/2024) Resolved Problems Problem Noted Date Diagnosed Date Resolved Date Atrial flutter 10/20/2023 10/25/2023 Problems related to living alone 05/25/2023 06/16/2024 Chronic obstructive pulmonary disease 12/23/2018 08/19/2020 Major [...] Disorder [facility] Other*[id number] 06/26/2011 12/08/2015 EXAMINATION OF PARTICIPANT I N CLINICAL TRIAL-Genomics 06/04/2009 08/20/2009 Overview (08/20/2009): Renamed Per Clinical Trials Billing Project. Study Titile: Genomic Markers for Patients with Cardiovascular Disease Project #[id number] PI: Radha Yepez MD Please call [phone] with study related questions GENOMICS CARDIO RESEARCH OTHER*[id number] 06/04/2009 06/13/2016 Overview (08/20/2009): Renamed Per Clinical Trials Billing Project. Study Titile: Genomic Markers for Patients with Cardiovascular Disease Project #[id number] PI: Radha Yepez MD Please call [phone] with study related questions Benign neoplasm of [...] as of this encounter (statuses as of 07/14/2024) Immunizations Name Administration Dates Next Due COVID-19 mRNA, LNP-s, No Pre serve, 2-Dose Series (Moderna) 07/02/2020,06/03/2020 COVID-19, mRNA, LNP-s, PF, B ooster, 100mcg/0.5mg (Moderna) 10/06/2021,03/02/2021 Covid-19, Mrna, Lnp-s, Pf, B ivalent, 10 Mcg, IM, 5-11 yrs (Pfizer) 02/15/2022 Covid-19, Mrna, Lnp-s, Pf, B ivalent, 30 Mcg, IM, 12 yrs and above (Pfizer) 02/15/2022 H1N1 2009 Influenza, IM 05/10/2009 Pneumococcal Conjugate Vacc, 13 Valent (Prevnar) 02/02/2015 Pneumococcal Polysaccharide PPV23 (Pneumovax) 01/24/2010,03/02/2001 Seasonal Influenza Vac., MDV , IM, 0.5 mL (Fluzone) 01/21/2014,01/15/2013,01/20/2012,01/23,01/24/2010,01/20/2009,03/09/2008 ,02/06/2007,03/17/2006,02/20/2005,02/05,03/09/1999 Seasonal Influenza, High Dos e, Trivalent, PF, IM (Fluzone HD) 03/26/2024 Seasonal Influenza, PF, 6 M & above, [...] Answer Date Recorded PHQ Adult Total Score 9 07/14/2024 Hunger Vital Sign Answer Date Recorded Within the past 12 months, y ou worried that your food would run out before you got the money to buy more. Never true 06/19/19 25 Within the past 12 months, t he food you bought just didn't last and you didn't have money to get more. Never true 06/19/2024 Childcare Answer Date Recorded Do you feel overwhelmed with taking care of a child, family member or friend? No 06/19/2024 Does your family need help f inding childcare? (Household - for ages 0-17 years) Not on file 06/19/2024 Clothing Answer Date Recorded Have you been unable to get clothing when it was really needed? No 06/19/2024 Is your family able to get c lothes or diapers when needed? (Household - for ages 0-17 years) Not on file 06/19/2024 Personal Safety Answer Date Recorded Do you feel unsafe or have concerns for your saf ety? No 06/19/2024 Do you have concerns for you r family's safety? (Household - for ages 0-17 years) Not on file 06/19/2024 Utilities Answer Date Recorded Do you have trouble paying y our heating, water, or electric bill? No 06/19/2024 Is your family able to pay t he heat, water, or electric bill? (Household - for ages 0-17 years) Not on file 06/19/2024 Does your family have access to good internet? (Household - for ages 0-17 years) Not on file 06/19/2024 Employment Status Answer Date Recorded Are you unemployed or without regular income? No 06/19/2024 Does the household have a [facility] medical centerr source of income? (Household - for ages 0-17 years) Not on file 06/19/2024 Social Connections Answer Date Recorded How often do you feel lonely or isolated from th ose around you? Never 06/19/2024 Financial Resource Strain Answer Date R ecorded Do you have any trouble payi ng for your medications, or do you think you might in the future? No 06/19/2024 Does your family have troubl e paying for medicine? (Household - for ages 0-17 years) Not on file 06/19/2024 Transportation Needs Answer Date Record ed READ ONLY Do you have troubl e getting a ride to medical visits or work? Never True 06/19/2024 Does your family have a hard time getting a ride to doctors visits? (Household - for ages 0-17 years) Not on file 06/19/2024 Has lack of transportation k ept you from medical appointments, meetings, work, or from getting things needed for daily living? Check all that apply. No 06/19/2024 Do you (or your family) have trouble finding or paying for a ride (transportation)? (Household - for ages 0-17 years) Not on file 06/19/2024 Housing Stability Answer Date Recorded Do you currently live in a s helter or have no steady place to sleep at night? No 06/19/2024 READ ONLY Do you think you a re at risk of becoming homeless? No 06/19/2024 Does your family worry about paying for your home or becoming homeless? (Household - for ages 0-17 years) Not on file 0 06/19/2024 Are you homeless or worried that you might be in the future? No 06/19/2024 Are you (or your family) shyla eless or worried that you might be in the future? (Household - for ages 0-17 years) Not on file Food Insecurity Answer Date Recorded Do you need food for this week? No 06/03/2024 Are you able to get enough f ood for your family? (Household - for ages 0-17 years) Not on file 06/03/2024 Does your family need food t his week? (Household - for ages 0-17 years) Not on file 06/03/2024 Do you always have enough fo od for your family? (Household - for ages 0-17 years) Not on file 06/03/2024 Food Insecurity Answer Date Recorded Within the past 12 months, y ou worried that your food would run out before you got the money to buy more. Never true 06/19/19 25 Within the past 12 months, t he food you bought just didn't last and you didn't have money to get more. Never true 06/19/2024 Do you need food for this week? No 06/19/2024 Sex and Gender Information Value Date Recorded [...] Author No 10/20/2023 9:22 AM EDT Nba Estes, RN * Are you blind or do [...] documented in this encounter Progress Notes * Page Mccurdy LCSW - 07/14/2024 9:39 AM EDT [facility] Evaluation Psychology [address] [address] Patient location: HOME. I was in a hospital or clinic location. After connecting through televideo,patient was verified with two unique identifiers. Patient (or authorized legal inbound call center representative) was then informed that this was a Telemedicine visit and being conducted confidentially over secure lines. Methods to assure confidentiality were taken. Patient acknowledged consent and understanding of pr ivacy and security of the Telemedicine visit. The patient agreed to participate. Provider determined this patient has capacity to receive and benefit from telehealth services. Face to Face Start Time: 9:40 am Face to Face Stop Time: 10:30 am Referral Source: PCP: Kaz Robledo MD Risk Assessment: Completed History of Present Illness: Landen Camacho is a 79 year old male who was referred for assessment and possible treatment of Depression and Anxiety ; behavioral health provider reviewed chart and coordinated care for this evaluation via the following methods: cc chart Landen Camacho was identified by first and last name and date of . Primary language of patient was Armenian. Landen Camacho arrived on time for his scheduled appointment. He was seen with his helper Courtney who is patient navigator, throughout the duration of the evaluation. Informed consent, limits of confidentiality, the consultative nature of the first visit, and documentation in the electronic record were reviewed. Presenting Symptoms: Landen comes to therapy appointment sharing increased anxiety related to Life stressors including care of who has dementia and is now in a care facility with Hospice. He also has been having a conflicted relationship with daughter whom he reports wants him to be placed and he wants to stay in his home. He feels daughter is controlling and not supportive of him in the way he had hoped she wouldbe. He reports increased anxiety and depressive symptoms over the last two years. He also reports health issues including Parkinson's and recent history of heart attacks. Current symptoms include shakiness, fatigue, excessive worry, poor appetite. He denies history of depression and anxiety in teens and as well adult. He does report taking antidepressant medication for several years and did have past counseling several years ago. Symptoms: NFH-3-Wqmgyuy tired, poor appetite, feel bad about self, trouble concentrating, moving orspeaking slowly and fidgety, GAD7-feeling nervous, not able to stop or control worrying, worrying too much about different things, trouble relaxing, restless, easily annoyed, Onset: two years ago Frequency of symptoms: several days to nearly every day. Additional Factors to Consider in Treatment: Exercise: walk up and down two story house, grocery shopping. Eating behaviors/diet: been stable Sleep: Good, no complaints and Needs medication to sleep Medication Adherence: Very good, rarely misses doses Psychiatry Review of Systems: PSYCHIATRY REVIEW OF SYSTEMS Pain screening: Is patient experiencing any pain related to today's visit? No Nutritional Screening: reports poor appetite Past Psychiatric History: Outpatient Treatment: Had counseling in the past -three years ago Inpatient Treatment: None Self injury and suicide attempts: None Prior psychotropic medical trials: Have taken mood medication-mostly antidepressant over the years ten years History of trauma, abuse, exploitation or trafficking: Relationship with daughter Substance Use History: Alcohol denied Caffeine coffee periodically have a cup of coffee, soda or tea cups/day Family Psychiatric History: Psychiatric diagnoses: has dementia Attempted suicides/ by suicide:None Drug and alcohol abuse: None Personal, Family and Social History: Living situation: Live by self, in care facility Education/Employment: [employer], HS diploma, some courses and training, History: Patient has never served in any branch of the Legal History: None Intellectual Disability Diagnosis: No Activities of Daily Living: Good Additional community service involvement: Other - and Patient advocate. Leisure and recreational interest: woodworking Catholic/Spiritual Orientation: Yarsani Mental Status Evaluation: Appearance: Well groomed, casually dressed, appearing stated age Abnormal Movement: No abnormal movements noted Behavior: Calm, cooperative and appropriate Speech and Language: Normal in rate, rhythm, volume and tone Mood: Mood congruent Affect: Appropriate to context and mood-congruent Thought Process: Logical, linear and goal directed Thought Content: No abnormal thought content Hallucinations: No perceptual disturbances Suicidality: No suicidal ideations, intent, method or plan or passive wish Homicidality: No homicidal ideations, intent, plan or target Orientation: Oriented to self, time, place and circumstances Attention: Intact Recent and Remote memory:Intact Insight: Good Judgement: Good Fund of Knowledge: Good Assessment/Formulation: Patient has been experiencing symptoms of anxiety and depression, of note and is prescribed/taking Klonopin, Celexa, Melatonin. Patient is seeking therapy services for anxietyand depression and has identified therapy goals of "to get my daughter back in same groove" and to manage anxiety and care for self (during this stressful time). Landen comes to therapy appointment with help from his patient navigator, Courtney and shared his struggles with anxiety and depressive symptoms related to life stressors-his 's illness and need for placement, his health issues and conflictual relationship with daughter. Landen reports interest in counseling. We completed initial assessment and therapist notified Landen of her leaving but another therapist will be assigned to him and willbe in contact by phone to schedule. Landen is agreement with plan. He was given the crisis numbers should he feel he needs someone to talk to before his next meeting. Relevant Stressors: current stressors include: family, health, and legal Diagnosis: ICD-10-CM 1. Adjustment disorder with mixed anxiety and depressed mood F43.23 Plan: Therapy: Patient will receive a brief course of behavioral health treatment with [facility]. Community Resources:Patient navigator, Joceline [employer], services in the home. Medication Management: PCP Return in:2-4 weeks Scheduling Preference for Appointments: Video/Inperson Adult [facility] Therapy Treatment Plan Treatment plan was developed on 07/14/2024, treatment will continue to focus on goals below; Treatment update will occur when clinically indicated or by 01/10/2025. Reasons for deferring a goal or the objectives leading toward or related to a goal are documented in the progress note. Patient received copy of treatment plan: Yes, sent via [employer] Patient's strengths and facilitating factors to care: Seeking help, Goal Oriented, Manages multipledemands in life, Has a purpose in life, Has hobbies, Good support system, Cultural/spiritual/cheondoism and community involvement, Access to housing, and Cooperative Individuals responsible for carrying out plan: Patient Expected family or significant other involvement: Offer Support Treatment Barriers: none identified Crisis planning: What I can do if I ever experience a crisis (much worse symptoms, severe distress or thoughts of self-harm): Sit in recliner and close eyes and take a break People I can call in the event of a crisis: Family Member: son and Spouse/partner/significant other: Additional resources I can utilize if the previous steps are ineffective (e.g: ED, hotlines): Suicide and Crisis Lifeline - 988 and [facility] Crisis Contact [phone] Estimated frequency of treatment Estimated duration Estimated Completion Type of Service Interventions approximately every 2-4 weeks 8-11 sessions 6 months Individual Cognitive Behavioral Therapy (CBT),which includes psychoeducation, cognitive restructuring, relaxation/diaphragmatic breathing, problem-solving, and behavioral activation and Acceptance & Commitment Therapy (ACT), including acceptance, cognitive defusion, being present, values, and committed action Patient was asked to rate how big of a problem each target symptom is, from 0 (not at all a problem) to 10 (a huge problem) Patient identified Goals/Needs Objective/Discharge Criteria Need 1: Landen will receive information on the management of anxiety and depression and coping skills. Other: Landen will identify and implement two coping skills by review. , Need 2: Landen will be given opportunity to process thoughts and feelings in session. [place] will identify self care tasks, values, and positive cognitions that promote well being. Please choose a method to track patient's improvement based on clinical assessment: PHQ-9 Adult Data JULIÁN-7 Data [place] Suicide Screen Data Discharge Discussed with patient: Patient continues to need treatment Is this the patients' initial treatment plan? Yes Patient participated in development of treatment plan with this behavioral health provider and agrees to the contents. Patient was given the opportunity to ask questions and have them answered. Patient was requested to review and sign the treatment plan. Ela is committed to coordinated care through an integrated delivery system and shared medicalrecord. Since our patients are seen both in primary care and behavioral health (as well as other specialties), each provider has immediate access to information to enable collaboration across the continuum. Treatment options and recommendations/interventions reviewed. Patient and/or caregiver verbalize understanding and agrees to plan with explanation of risks/benefits, aware of how to contact clinic with questions. documented in this encounter Plan of Treatment Upcoming Encounters Date Type Department Care Team (Late st Contact Info) Description 07/28/2024 11:30 AM EDT Telemedicine Psychology [address] [place] [phone] Page John LCSW [address] [place] [phone] 10/10/2024 1:00 PM EDT [facility] [address] [phone] Kaz Robledo MD [address] [place] [address] 10/24/2024 2:00 PM EDT Office Visit Dermatology Asael Mar[address] [place] [address] [place] [address] Mitchell Mack MD [address] [facility] [place] [address] 12/29/2024 2:20 PM EDT Telemedicine Neurology [address], [place] [phone] Darron Calvillo MD [address] [place] [address] 01/19/2025 11:00 AM EDT Office Visit Cardiology, [facility] [address] [place] [phone] Marcia Collins CRNP [address] [place] [address] Scheduled Procedures Name Priority Associated Diagnoses Date/Ti me COLONOSCOPY FLEXIBLE PROXIMAL DIAGNOSTIC Recall History of colon polyps Health Maintenance Due Date Last Done Comments Alpha-1 Antitrypsin 1963 Colonoscopy 03/20/2020 03/20/2019, 03/07, 10/15/2017, Additional history exists Adult Wellness Visit 10/27/2022 10/27/2021, 10/16/19 21 *COPD SEVERITY VERIFIED BY PFT 05/28/2023 COVID-19 Vaccine ( season) 2024 02/15/2022, 02/15/2022, 10/06/2021, Additional history exists HbA1c 10/20/2024 10/21/2023, 07/05, 07/05/2022, Additional history exists GFR 10/24/2024 10/25/2023, 10/05, 10/23/2023, Additional history exists O2 ASSESSMENT COMPLETED IN PAST YEAR FOR COPD 07/11/2025 07/11/2024 Depression Monitoring 07/14/2025 07/14/2024 Albumin/Creatinine Ratio 07/17/2026 07/18/2023, 09/05 DTap/Tdap Vaccines [...] on patient's age to complete this topic Meningitis B Vaccine (Bexsero/Trumemba) Aged Out No longer eligible based on patient's age to complete this topic documented as of this encounter Medical Devices Not on filedocumented as of this encounter Visit Diagnoses Diagnosis Chronic coronary artery disease- Primary Coronary atherosclerosis of unspecified type of vessel, upper [place] or graft HTN, goal below 140/90 Unspecified essential hypertension Parkinson's disease, unspecified whether dyskinesia present, unspecified whether manifestations fluctuate (HCC) PVD (peripheral vascular disease) (HCC) Peripheral vascular disease, unspecified Adjustment disorder with mixed anxiety and depressed mood Advanced care planning/counseling discussion Other specified counseling Adjustment disorder with mixed anxiety and depressed mood- Primary documented in this encounter Advance Directives Documents on File Type Date Recorded Patient Blueprinting And Photocopy Supervisor Deisi LIANG 04/22/2024 signed on 04/21 * Full Code (Latest Code Status on File) Date Activated Date Inactivated Comments 10/20/2023 10:03 AM 10/26/2023 1:07 AM This order reflects the patients wishes and were consensually agreed upon. Question Answer Comments Discussion of Advance Directives occurred with: Patient Care Teams Mill Supervisor Relationship Specialty Start Date End Date Kaz Robledo MD [address] [place] [address] PCP - General Family Medicine 03/05/17 documented as of this encounter
--- OUTSIDE RECORDS SUMMARY | 2024-07-17 08:55 | External Medical Summary | Summary of Care ---
Author Name Unknown Organization [facility] Address [address] [place] [address] Phone [phone] Care Team Providers Care Brand Leader Name Role Phone Kaz Robledo MD Primary Care Provider +1- [phone] Reason for Visit * Reason Onset Date Comments [facility]: Engagement 07/16/2024 Encounter Details Date Type Department Care Team (Late st Contact Info) Description 07/16/2024 Telephone [facility] [place] [facility] [address] [place] [phone] Lorena Anderson, HENRIETTA [address] [place] [address] [facility]: Engagement Allergies Active Allergy Reactions Criticality Noted Date Comments Atorvastatin Muscle pain 12/11/2016 Bee Stings 02/21/1999 Hives,intense itching,edema Gabapentin 10/02/2023 "Couldn't handle it" documented as of this encounter (statuses as of 07/16/2024) Medications CALCIUM 500 MG PO TABS Take [...] Oral Tablet (Zetia)Indications :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 100 Tablet 2 4 4:50 PM EST 04/23/20 24 Active Vitamin D3 25 MCG (1000 UT) Oral Tablet (Vitamin D3) Take 1 Tablet by mouth in the morning. 100 Tablet 2 4 4:50 PM EST 04/23/20 24 Active Folic Acid 400 MCG Oral TabletIndications: Coronary artery disease involving elem coronary artery of elem heart without angina pectoris Take 1 Tablet [...] as of this encounter (statuses as of 07/16/2024) Active Problems Problem Noted Date Diagnosed Date [...] with cardiology Continues [facility] Dyslipidemia, goal LDL below 100 04/15/2009 Overview (04/15/2009): Per Lipid Taxonomy. Hearing loss 07/09/2007 documented as of this encounter (statuses as of 07/16/2024) Resolved Problems Problem Noted Date Diagnosed Date [...] 02/15/2012 09/03/[address] [facility] Other*[id number] 06/26/2011 12/08/2015 EXAMINATION OF PARTICIPANT I N CLINICAL TRIAL-Genomics 06/04/2009 08/20/2009 Overview (08/20/2009): Renamed Per Clinical Trials Billing Project. Study Titile: Genomic Markers for Patients with Cardiovascular Disease Project #[id number] PI: Radha Yepez MD Please call [phone] with study related questions GENOMICS CARDIO RESEARCH OTHER*[id number] 06/04/2009 06/13/2016 Overview (08/20/2009): Renamed Per Clinical Trials Billing Project. Study Titile: Genomic Markers for Patients with Cardiovascular Disease Project #[id number] PI: Radha Yepez MD Please call [phone] with study related questions Benign neoplasm of [...] as of this encounter (statuses as of 07/16/2024) Immunizations Name Administration Dates Next Due COVID-19 [...] 0.5 mL (Fluzone) 01/21/2014,01/15/2013,01/20/2012,01/23,01/24/2010,01/20/2009,03/09/2008 ,02/06/2007,03/17/2006 Seasonal Influenza, High Dos e, Trivalent, PF, [...] No 06/19/2024 Does the household have a re lar [...] encounter Miscellaneous Notes * Telephone Encounter - Lorena Anderson OSA - 07/16/2024 12:07 PM EDT Set up ret fu for 07/29, call to pt, he approves. documented in this encounter Plan of Treatment Upcoming Encounters Date Type Department Care Team (Late st Contact Info) Description 07/28/2024 11:30 AM EDT Telemedicine Psychology Jose G Coleman [address] [place] [phone] Page John LCSW [address] [place] [phone] 07/29/2024 5:00 PM EDT Home Visit [facility] [address] [place] [address] Hilary Mercado, RN [address] [place] [address] 10/10/2024 1:00 PM EDT Office Visit [facility] [address] [facility] [place] [phone] Kaz Robledo MD [address] [facility] [place] [address] 10/24/2024 2:00 PM EDT Office Visit Dermatology [facility] [address] [place] [address] Mitchell Mack MD [address] [place] [address] 12/29/2024 2:20 PM EDT Telemedicine Neurology [facility] [address] [place] [address] [place] [address] Darron Calvillo MD [address] [facility] [place] [address] 01/19/2025 11:00 AM EDT Office Visit Cardiology, [facility] [address] [facility] [place] [address] Marcia Collins CRNP [address] [facility] [place] [address] Scheduled Procedures Name Priority Associated Diagnoses Date/Ti [...] Documents on File Type Date Recorded Patient Behavioral Health Clinician Deisi polk AZUL 04/22/2024 signed on 04/21 * Full Code (Latest Code Status on File) Date Activated Date Inactivated Comments 10/20/2023 10:03 AM 10/26/2023 1:07 AM This order reflects the patients wishes and were consensually agreed upon. Question Answer Comments Discussion of Advance Directives occurred with: Patient Care Teams Brand Leader Relationship Specialty Start Date End Date Kaz Robledo MD [address] [place] [place] [address] PCP - General Family Medicine 03/05/17 documented as of this encounter
--- OUTSIDE RECORDS SUMMARY | 2024-07-17 08:56 | External Medical Summary | Summary of Care ---
Author Name Unknown Organization [facility] Address [address] [place] [address] Phone [phone] Care Team Providers Care Paid Search Manager Name Role Phone Kaz Robledo MD Primary Care Provider +1- [phone] Reason for Visit * Reason Comments Follow Up Encounter Details Date Type Department Care Team (Late st Contact Info) Description 07/10/2024 Documentation Psychology [facility] [address] [place] [address] Page Mccurdy, [facility] [address] [place] [address] Allergies Active Allergy Reactions Criticality Noted Date Comments Atorvastatin Muscle pain 12/11/2016 Bee Stings 02/21/1999 Hives,intense itching,edema Gabapentin 10/02/2023 "Couldn't handle it" documented as of this encounter (statuses as of 07/10/2024) Medications CALCIUM 500 MG PO TABS Take [...] Active Additional Information Patient taking differently:17 g Oral Daily(AM), Dissolve one heaping tablespoon in 8 ounces of water or juice. If after one week, bowels are not moving well, take twice a dayTakes a dose and a half daily, Reported on 07/08/2024 Melatonin 3 MG Oral Tablet Disintegrating Take [...] prior to injection. 2 mL 11 5 8:28 AM EST 04/16/20 24 Active Citalopram Hydrobromide 20 MG Oral Tablet (CeleXA)Indication s:Major depressive disorder, recurrent episode, mild (HCC) Take 1 Tablet by mouth in the morning. 100 Tablet 5 11:15 AM EST 04/23/20 24 Active Ezetimibe 10 MG Oral Tablet (Zetia)Indications :Coronary artery disease of [place] artery of [place] heart with stable angina pectoris (HCC),Dyslipidemia , [...] Tablet Delayed ReleaseIndications :Coronary artery disease involving [place] ir[place] coronary artery of [place] heart without angina pectoris Take 1 Tablet by mouth in the morning. 100 Tablet 2 4 4:50 PM EST 04/23/20 24 Active Vitamin D3 25 MCG (1000 UT) Oral Tablet (Vitamin D3) Take 1 Tablet by mouth in the morning. 100 Tablet 2 4 4:50 PM EST 04/23/20 24 Active Folic Acid 400 MCG Oral TabletIndications: Coronary artery disease involving [place] ir[place] coronary artery of [place] heart without angina pectoris Take 1 Tablet [...] than 3 consecutive doses 25 Tablet 5 07/09/19 25 Active documented as of this encounter (statuses as of 07/10/2024) Active Problems Problem Noted Date Diagnosed Date Heart failure 06/16/2024 Paroxysmal atrial flutter 06/16/2024 Polyneuropathy in diseases classified elsewhere 06/16/2024 Depression, unspecified 06/16/2024 Orthostatic hypotension 04/10/2024 Carotid stenosis, asymptomatic, right 12/19/2023 Personal history of DE (myocardial infarction) 0 10/20/2023 Overview (12/12/2023): 10/20/23 [...] closely with cardiology Continues cardiac rehab via [facility] rehab program Dyslipidemia, goal LDL below 100 04/15/2009 Overview (04/15/2009): Per Lipid Taxonomy. Hearing loss 07/09/2007 documented as of this encounter (statuses as of 07/10/2024) Resolved Problems Problem Noted Date Diagnosed Date [...] disorder 02/15/2012 09/03/2017 Genetic Sleep Disorder Resea [facility] Other*[id number] 06/26/2011 12/08/2015 EXAMINATION OF PARTICIPANT I N CLINICAL TRIAL-Genomics 06/04/2009 08/20/2009 Overview (08/20/2009): Renamed Per Clinical Trials Billing Project. Study Titile: Genomic Markers for Patients with Cardiovascular Disease Project #[id number] PI: Radha Yepez MD Please call [phone] with study related questions GENOMICS CARDIO RESEARCH OTHER*[id number] 06/04/2009 06/13/2016 Overview (08/20/2009): Renamed Per Clinical Trials Billing Project. Study Titile: Genomic Markers for Patients with Cardiovascular Disease Project #[id number] PI: Radha Yepez MD Please call [phone] with study related questions Benign neoplasm of [...] as of this encounter (statuses as of 07/10/2024) Immunizations Name Administration Dates Next Due COVID-19 [...] Answer Date Recorded PHQ Adult Total Score 8 06/20/2024 Hunger Vital Sign Answer Date Recorded Within [...] 06/19/2024 Does the household have a re gular [...] Progress Notes * Page Mccurdy LCSW - 07/10/2024 12:42 PM EST Landen was scheduled for an initial intake appointment this date with Adult [facility]. He did not show. Therapist called and left message for Landen. I notified him I was missing seeing him for his appointment this date and provided the scheduling number in case he did want to reschedule the appointment [phone]. documented in this encounter Plan of Treatment Upcoming Encounters Date Type Department Care Team (Late st Contact Info) Description 07/11/2024 12:00 PM EST Home Visit [facility] [address] [facility] [place] [address] Shreya Talbert [facility] Associate [address] [place] [facility] [place] [address] 07/14/2024 9:30 AM EDT Telemedicine Psychology [facility] [place] [address] Page Mccurdy LCSW [address] [place] [address] 07/28/2024 11:30 AM EDT Telemedicine Psychology Jose G Coleman [address] [place] [place] [address] Page John LCSW [address] [place] [address] 10/10/2024 1:00 PM EDT Office Visit [facility] [address] [place] [phone] Kaz Robledo MD [address] [place] [address] 10/24/2024 2:00 PM EDT Office Visit Dermatology [facility] [address] [facility] [place] [address] Mitchell Mack MD [address] [facility] [place] [address] 12/29/2024 2:20 PM EDT Telemedicine Neurology [address] [place] [address] Darron Calvillo MD [address] [facility] [place] [phone] 01/19/2025 11:00 AM EDT Office Visit Cardiology, [facility] [address] [facility] [place] [address] Marcia Collins CRNP [address] [facility] [place] [address] Scheduled Procedures Name Priority Associated Diagnoses Date/Ti [...] 10/24/2024 10/25/2023, 10/05, 10/23/2023, Additional history exists Depression Monitoring 06/20/2025 06/20/2024 O2 ASSESSMENT COMPLETED IN PAST YEAR FOR COPD 06/26/2025 06/26/2024 Albumin/Creatinine Ratio 07/17/2026 07/18/2023, 09/05 DTap/Tdap Vaccines [...] Documents on File Type Date Recorded Patient Ux Interaction Designer Expl jam LIANG 04/22/2024 signed on 04/21 * Full Code (Latest Code Status on File) Date Activated Date Inactivated Comments 10/20/2023 10:03 AM 10/26/2023 1:07 AM This order reflects the patients wishes and were consensually agreed upon. Question Answer Comments Discussion of Advance Directives occurred with: Patient Care Teams Paid Search Manager Relationship Specialty Start Date End Date Kaz Robledo MD [address] [place] [address] PCP - General Family Medicine 03/05/17 documented as of this encounter
--- OUTSIDE RECORDS SUMMARY | 2024-07-17 08:56 | External Medical Summary | Summary of Care ---
Author Name Unknown Organization [facility] Address [address] [place] [address] Phone [phone] Care Team Providers Care Tax Accounting Manager Name Role Phone Kaz Robledo MD Primary Care Provider +1- [phone] Reason for Visit * Reason Onset Date Comments Appointment 06/27/2024 Encounter Details Date Type Department Care Team (Late st Contact Info) Description 06/27/2024 Telephone [facility] [place] [facility] [address] [place] [address] Lamine Wilson, HENRIETTA [address] [place] [address] Appointment Allergies Active Allergy Reactions Criticality Noted Date Comments Atorvastatin Muscle pain 12/11/2016 Bee Stings 02/21/1999 Hives,intense itching,edema Gabapentin 10/02/2023 "Couldn't handle it" documented as of this encounter (statuses as of 06/27/2024) Medications CALCIUM 500 MG PO TABS Take [...] dose and a half daily, Reported on 06/23/2024 Melatonin 3 MG Oral Tablet Disintegrating Take 2 Tablets by mouth at bedtime. Active Triamcinolone Acetonide 0.1 % External Cream (Aristocort)Indica tions:Hand erythema Apply topically to affected area 2 times a day 45 g 03/18/20 24 Active Additional Information Patient not taking.Reported on 06/23/2024 Multivitamin Adult Oral Tablet Take 1 Tablet by mouth in the morning. 90 Tablet 3 03/18/20 24 Active Co Q-10 400 MG Oral Capsule Take 1 Capsule by mouth once. 04/10/20 24 Active Repatha SureClick 140 MG/ML Subcutaneous Solution Auto-injector (evolocumab) Inject 140 mg under the skin every 14 days. Remove from refrigerator 30 minutes prior to injection. 2 mL 5 8:28 AM EST 04/16/20 24 Active Citalopram Hydrobromide 20 MG Oral Tablet (CeleXA)Indication s:Major depressive disorder, recurrent episode, mild (HCC) Take 1 Tablet by mouth in the morning. 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 100 Tablet 2 4 4:50 PM EST 04/23/20 24 Active Vitamin D3 25 MCG (1000 UT) Oral Tablet (Vitamin D3) Take 1 Tablet by mouth in the morning. 100 Tablet 2 4 4:50 PM EST 04/23/20 24 Active Folic Acid 400 MCG Oral TabletIndications: Coronary artery disease involving eagle coronary artery of eagle heart without angina pectoris Take 1 Tablet [...] 5 6:16 PM EST 06/23/19 25 Active documented as of this encounter (statuses as of 06/27/2024) Active Problems Problem Noted Date Diagnosed Date [...] cardiology Continues cardiac rehab via [facility] rehab program Dyslipidemia, goal LDL below 100 04/15/2009 Overview (04/15/2009): Per Lipid Taxonomy. Hearing loss 07/09/2007 documented as of this encounter (statuses as of 06/27/2024) Resolved Problems Problem Noted Date Diagnosed Date [...] Sleep Disorder Resea [facility] Other*[id number] 06/26/2011 12/08/2015 EXAMINATION OF PARTICIPANT I N CLINICAL TRIAL-Genomics 06/04/2009 08/20/2009 Overview (08/20/2009): Renamed Per Clinical Trials Billing Project. Study Titile: Genomic Markers for Patients with Cardiovascular Disease Project #[id number] PI: Radha Yepez MD Please call [phone] with study related questions GENOMICS CARDIO RESEARCH OTHER*[id number] 06/04/2009 06/13/2016 Overview (08/20/2009): Renamed Per Clinical Trials Billing Project. Study Titile: Genomic Markers for Patients with Cardiovascular Disease Project #[id number] PI: Radha Yepez MD Please call [phone] with study related questions Benign neoplasm of [...] as of this encounter (statuses as of 06/27/2024) Immunizations Name Administration Dates Next Due COVID-19 [...] encounter Miscellaneous Notes * Telephone Encounter - Lamine Wilson OSA - 06/27/2024 10:47 AM EST Task Request - CHW f/u with pt in approx 2-3 weeks, VS, f[facility] on [facility]New[facility] Scheduled a visit with Shreya Talbert on July 11 at 12 pm. Spoke with patient and confirmed. documented in this encounter Plan of Treatment Upcoming Encounters Date Type Department Care Team (Late st Contact Info) Description 07/07/2024 11:30 AM EST Scheduled Telephone [facility] [address] [facility] [place] [address] Teresa Johnson RDN [address] [place] [address] 07/08/2024 10:30 AM EST Office Visit Cardiology, [facility] [address] [place] [address] Marcia Collins CRNP [address] [place] [address] 07/10/2024 12:30 PM EST Telemedicine Psychology [facility] [address] [place] [address] Page Mccurdy LCSW [address] [place] [address] 07/11/2024 12:00 PM EST Home Visit [facility]ination [facility] Integration [address] [place] [address] Shreya Talbert, [facility] [address] [place] [address] 07/28/2024 11:30 AM EDT Telemedicine Psychology Jose G Coleman [address] [place] [address] Page oJhn LCSW [address] [place] [address] 10/10/2024 1:00 PM EDT Office Visit [facility] [address] [place] [phone] Kaz Robledo MD [address] [place] [address] 10/24/2024 2:00 PM EDT Office Visit Dermatology [facility] [address] [place] [address] Mitchell Mack MD [address] [place] [address] 12/29/2024 2:20 PM EDT Telemedicine Neurology [address] [place] [address] Darron Calvillo MD [address] [place] [address] Scheduled Procedures Name Priority Associated Diagnoses Date/Ti [...] Documents on File Type Date Recorded Patient Quality Control Analyst Deisi douglassviral AZUL 04/22/2024 signed on 04/21 * Full Code (Latest Code Status on File) Date Activated Date Inactivated Comments 10/20/2023 10:03 AM 10/26/2023 1:07 AM This order reflects the patients wishes and were consensually agreed upon. Question Answer Comments Discussion of Advance Directives occurred with: Patient Care Teams Tax Accounting Manager Relationship Specialty Start Date End Date Kaz Robledo MD [address] [place] [address] PCP - General Family Medicine 03/05/17 documented as of this encounter
--- OUTSIDE RECORDS SUMMARY | 2024-07-17 08:56 | External Medical Summary | Summary of Care ---
Author Name Unknown Organization [facility] Address [address] [place] [address] Phone [phone] Care Team Providers Care Principle Software Engineer Name Role Phone Kaz Robledo MD Primary Care Provider +1- [phone] Reason for Visit * Reason Onset Date Comments Medical Nutrition Therapy 07/07/2024 Encounter Details Date Type Department Care Team (Latest Contact Info) Description 07/07/2024 11:30 AM EST Scheduled Telephone [facility], [facility] [address] [facility] [place] [address] Teresa Johnson RDN [address] [facility] [place] [address] Heart failure (HCC)* Allergies Active Allergy Reactions Criticality Noted Date Comments Atorvastatin Muscle pain 12/11/2016 Bee Stings 02/21/1999 Hives,intense itching,edema Gabapentin 10/02/2023 "Couldn't handle it" documented as of this encounter (statuses as of 07/07/2024) Medications CALCIUM 500 MG PO TABS Take [...] Oral Tablet (Zetia)Indications :Coronary artery disease of [place] artery of [place] heart with stable angina pectoris (HCC),Dyslipidemia , [...] Tablet Delayed ReleaseIndications :Coronary artery disease involving [place] coronary artery of [place] heart without angina pectoris Take 1 Tablet by mouth in the morning. 100 Tablet 2 4 4:50 PM EST 04/23/20 24 Active Vitamin D3 25 MCG (1000 UT) Oral Tablet (Vitamin D3) Take 1 Tablet by mouth in the morning. 100 Tablet 2 4 4:50 PM EST 04/23/20 24 Active Folic Acid 400 MCG Oral TabletIndications: Coronary artery disease involving [place] coronary artery of [place] heart without angina pectoris Take 1 Tablet [...] as of this encounter (statuses as of 07/07/2024) Active Problems Problem Noted Date Diagnosed Date Heart failure 06/16/2024 Paroxysmal atrial flutter 06/16/2024 Polyneuropathy in diseases classified elsewhere 06/16/2024 Depression, unspecified 06/16/2024 Orthostatic hypotension 04/10/2024 Carotid stenosis, asymptomatic, right 12/19/2023 Personal history of [place] (myocardial infarction) 0 10/20/2023 Overview (12/12/2023): 10/20/23 [...] closely with cardiology [facility] Dyslipidemia, goal LDL below 100 04/15/2009 Overview (04/15/2009): Per Lipid Taxonomy. Hearing loss 07/09/2007 documented as of this encounter (statuses as of 07/07/2024) Resolved Problems Problem Noted Date Diagnosed Date [...] 09/03/2017 Genetic Sleep Disorder Resea [facility] Other*[id number] 06/26/2011 12/08/2015 EXAMINATION OF PARTICIPANT I N CLINICAL TRIAL-Genomics 06/04/2009 08/20/2009 Overview (08/20/2009): Renamed Per Clinical Trials Billing Project. Study Titile: Genomic Markers for Patients with Cardiovascular Disease Project #[id number] PI: Radha Yepez MD Please call [phone] with study related questions GENOMICS CARDIO RESEARCH OTHER*[id number] 06/04/2009 06/13/2016 Overview (08/20/2009): Renamed Per Clinical Trials Billing Project. Study Titile: Genomic Markers for Patients with Cardiovascular Disease Project #[id number] PI: Radha Yepez MD Please call [phone] with study related questions Benign neoplasm of [...] as of this encounter (statuses as of 07/07/2024) Immunizations Name Administration Dates Next Due COVID-19 [...] Date Author No 10/20/2023 9:22 AM Nba Wynn, RN documented in this encounter Miscellaneous Notes * Telephone Encounter - Socorro Roberts RN - 07/07/2024 10:54 AM EST Received call from the pt who missed a call this morning from [facility]. Advised pt it may have been from the school secretary. Teams and TT messages sent to Jazmyn Johnson. Notified pt will request Sydney to call him back. Socorro ARREDONDO, RN [facility] Intake Nurse Navigator Triage * Telephone Encounter - Teresa Johnson RDN - 07/07/2024 8:32 AM EST NUTRITION FOLLOW-UP NOTE - OUTPATIENT [facility] Name: Landen Camacho Location: [facility], [facility] Date: 07/07/2024 Time: 8:32 AM Patient was identified by name and date. Upon review of EMR and multiple conversations with Patient; Patient's PO intake/appetite remain good, no difficulties chewing/swallowing, no open areas reported, no food insecurity reported, no new labs since 10/28, BMI is WNL, and no immediate nutrition concerns reported. This dietitian has been placing nutrition reinforcement phone calls since 12/05/23 focusing on low sodium, low sugar, nutritious foods due to H/O Cardiac Disease and Pre-Diabetes (info sent and reviewed several times). All nutrition interventions maximized at this time. No further nutrition assistance needed. No future phone calls will be scheduled per Patient request. Reason for Nutrition Follow-up: Heart/Lung Health, Prediabetes Teresa Johnson RDN [facility], [facility] documented in this encounter Plan of Treatment Upcoming Encounters Date Type Department Care Team (Late st Contact Info) Description 07/08/2024 10:30 AM EST Office Visit Cardiology, [facility] [address] [facility] [place] [address] Marcia Collins CRNP [address] [place] [address] 07/10/2024 12:30 PM EST Telemedicine Psychology [facility] [address] [place] [address] Page Mccurdy LCSW [address] [place] [address] 07/11/2024 12:00 PM EST Home Visit Care Coordination and Integration [address] [place] [address] Shreya Talbert, Community Health Washer Operator [address] [facility] [place] [address] 07/28/2024 11:30 AM EDT Telemedicine Psychology Jose G Coleman [address] [place] [address] Page John [facility]CSW [address] [facility] [address] 10/10/2024 1:00 PM EDT Office Visit [facility] [address] [facility] [place] [phone] Kaz Robledo MD [address] [place] [address] 10/24/2024 2:00 PM EDT Office Visit Dermatology Asael Marquez [place] [address] [facility] [place] [address] Mitchell Mack MD [address] [facility] [place] [address] 12/29/2024 2:20 PM EDT Telemedicine Neurology [place] [address] [address] [place] [address] Darron Calvillo MD [address] [place] [facility] [place] [address] Scheduled Procedures Name Priority Associated Diagnoses Date/Ti [...] exists Zoster Vaccines Completed 06/07/2019, 1012/2018, 02/03/2009 Influenza Vaccine (FLU shot) Completed 03/26/2024, [...] Coronary atherosclerosis of unspecified type of vessel, gila river or graft HTN, goal below 140/90 Unspecified essential hypertension Parkinson's disease, unspecified whether dyskinesia present, unspecified whether manifestations fluctuate (HCC) PVD (peripheral vascular disease) (HCC) Peripheral vascular disease, unspecified Adjustment disorder with mixed anxiety and depressed mood Advanced care planning/counseling discussion Other specified counseling Heart failure (HCC)- Primary Heart failure, unspecified documented in this encounter Advance Directives Documents on File Type Date Recorded Patient Rn Hemodialysis Charge Expl jam LIANG 04/22/2024 signed on 04/21 * Full Code (Latest Code Status on File) Date Activated Date Inactivated Comments 10/20/2023 10:03 AM 10/26/2023 1:07 AM This order reflects the patients wishes and were consensually agreed upon. Question Answer Comments Discussion of Advance Directives occurred with: Patient Care Teams Principle Software Engineer Relationship Specialty Start Date End Date Kaz Robledo MD [address] [place] [address] PCP - General Family Medicine 03/05/17 documented as of this encounter
--- OUTSIDE RECORDS SUMMARY | 2024-07-17 08:56 | External Medical Summary | Summary of Care ---
Author Name Unknown Organization [facility] Address [address] [place] [address] Phone [phone] Care Team Providers Care Automation Developer Name Role Phone Kaz Robledo MD Primary Care Provider +1- [phone] Reason for Visit * Reason Comments Psychotherapy Encounter Details Date Type Department Care Team (Late st Contact Info) Description 07/14/2024 9:30 AM EDT Telemedicine Psychology [facility] [address] [place] [address] Page Mccurdy, [facility] [address] [place] [address] Adjustment disorder with mixed anxiety and depressed [...] Oral Tablet (Zetia)Indications :Coronary artery disease of [place] artery of [place] heart with stable angina pectoris (HCC),Dyslipidemia , [...] Tablet Delayed ReleaseIndications :Coronary artery disease involving [place] coronary artery of [place] heart without angina pectoris Take 1 Tablet by mouth in the morning. 100 Tablet 2 4 4:50 PM EST 04/23/20 24 Active Vitamin D3 25 MCG (1000 UT) Oral Tablet (Vitamin D3) Take 1 Tablet by mouth in the morning. 100 Tablet 2 4 4:50 PM EST 04/23/20 24 Active Folic Acid 400 MCG Oral TabletIndications: Coronary artery disease involving [place] coronary artery of [place] heart without angina pectoris Take 1 Tablet [...] stenosis, asymptomatic, right 12/19/2023 Personal history of [place] (myocardial infarction) 0 10/20/2023 Overview (12/12/2023): 10/20/23 [...] closely with cardiology [facility] Dyslipidemia, goal LDL below 100 [...] disorder 02/15/2012 09/03/2017 Genetic Sleep Disorder Resea [facility] Other*[id number] 06/26/2011 12/08/2015 EXAMINATION OF PARTICIPANT I N CLINICAL TRIAL-Genomics 06/04/2009 08/20/2009 Overview (08/20/2009): Renamed Per Clinical Trials Billing Project. Study Titile: Genomic Markers for Patients with Cardiovascular Disease Project #[id number] PI: Radha Yepez MD Please call [phone] with study related questions GENOMICS CARDIO RESEARCH OTHER*[id number] 06/04/2009 06/13/2016 Overview (08/20/2009): Renamed Per Clinical Trials Billing Project. Study Titile: Genomic Markers for Patients with Cardiovascular Disease Project #[id number] PI: Radha Yepez MD Please call [phone] with study related questions Benign neoplasm of [...] No 06/19/2024 Does the household have a [facility] source of income? (Household - for ages [...] EDT Primary Care Behavioral Health Evaluation Psychology [address] [address] Patient location: HOME. I was in a hospital or clinic location. After connecting through televideo,patient was verified with two unique identifiers. 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 Symptoms: [id number] tired, poor appetite, feel bad about self, [...] Live by self, in care facility Education/Employment: [employer], HS diploma, some courses and training, History: Patient has never served in any branch of the Legal History: None Intellectual Disability Diagnosis: No Activities of Daily Living: Good Additional community service involvement: Other - and Patient advocate. Leisure and recreational interest: woodworking Taoism/Spiritual Orientation: Church Mental Status Evaluation: Appearance: Well groomed, casually [...] Care Behavioral Health. Community Resources:Patient navigator, Joceline Alorum, services in the home. Medication Management: PCP Return in:2-4 weeks Scheduling Preference for Appointments: Video/Inperson Adult [facility] Therapy Treatment Plan Treatment plan was developed on 07/14/2024, treatment will continue to focus on goals below; Treatment update will occur when clinically indicated or by 01/10/2025. Reasons for deferring a goal or the objectives leading toward or related to a goal are documented in the progress note. Patient received copy of treatment plan: Yes, sent via [employer] Patient's strengths and facilitating factors to care: Seeking help, Goal Oriented, Manages multipledemands in life, Has a purpose in life, Has hobbies, Good support system, Cultural/spiritual/jain and community involvement, Access to housing, and [...] Suicide and Crisis Lifeline - 988 and [facility] Crisis Contact [phone] Estimated frequency of treatment Estimated duration Estimated [...] to process thoughts and feelings in session. Ambrose will identify self care tasks, values, and positive cognitions that promote well being. Please choose a method to track patient's improvement based on clinical assessment: PHQ-9 Adult Data JULIÁN-7 Data [place] Suicide Screen Data Discharge Discussed with patient: [...] Psychology Jose G Coleman [address] [place] [phone] Page John LCSW [address] [place] [phone] 10/10/2024 1:00 PM EDT [facility] [address] [place] [phone] Kaz Robledo MD [address] [place] [address] 10/24/2024 2:00 PM EDT Office Visit Dermatology Asael Marquez [place] [address] [place] [address] Mitchell Mack MD 200 [facility] [place] [address] 12/29/2024 2:20 PM EDT Telemedicine Neurology Jose [address] [place], [place] [address] Darron Calvillo MD [address] [place] [address] 01/19/2025 11:00 AM EDT Office Visit Cardiology, [facility] [address] [place] [address] Marcia Collins CRNP [address] [place] [address] Scheduled Procedures Name Priority Associated Diagnoses Date/Ti [...] Coronary atherosclerosis of unspecified type of vessel, [place] or graft HTN, goal below 140/90 Unspecified [...] Documents on File Type Date Recorded Patient Raisin Separator Operator Deisi LIANG 04/22/2024 signed on 04/21 * Full Code (Latest Code Status on File) Date Activated Date Inactivated Comments 10/20/2023 10:03 AM 10/26/2023 1:07 AM This order reflects the patients wishes and were consensually agreed upon. Question Answer Comments Discussion of Advance Directives occurred with: Patient Care Teams Automation Developer Relationship Specialty Start Date End Date Kaz Robledo MD [address] [place] [address] PCP - General Family Medicine 03/05/17 documented as of this encounter
--- OUTSIDE RECORDS SUMMARY | 2024-07-17 08:56 | External Medical Summary | Summary of Care ---
Author Name Unknown Organization [facility] Address [address] [place] [address] Phone [phone] Care Team Providers Care Ribbon Lapper Tender Name Role Phone Kaz Robledo MD Primary Care Provider +1- [phone] Encounter Details Date Type Department Care Team (Late st Contact Info) Description 07/11/2024 12:00 PM EST Home Visit Care Coordination and Integration [address] [place], [place] [phone] Shreya Talbert, Community Health Fortune Teller [address], [place] [phone] Arrived Allergies Active Allergy Reactions Criticality Noted Date Comments Atorvastatin Muscle pain 12/11/2016 Bee Stings 02/21/1999 Hives,intense itching,edema Gabapentin 10/02/2023 "Couldn't handle it" documented as of this encounter (statuses as of 07/11/2024) Medications CALCIUM 500 MG PO TABS Take [...] Oral Tablet (Zetia)Indications :Coronary artery disease of robinson artery of robinson heart with stable angina pectoris (HCC),Dyslipidemia , [...] Tablet Delayed ReleaseIndications :Coronary artery disease involving robinson coronary artery of robinson heart without angina pectoris Take 1 Tablet by mouth in the morning. 100 Tablet 2 4 4:50 PM EST 04/23/20 24 Active Vitamin D3 25 MCG (1000 UT) Oral Tablet (Vitamin D3) Take 1 Tablet by mouth in the morning. 100 Tablet 2 4 4:50 PM EST 04/23/20 24 Active Folic Acid 400 MCG Oral TabletIndications: Coronary artery disease involving robinson coronary artery of robinson heart without angina pectoris Take 1 Tablet [...] as of this encounter (statuses as of 07/11/2024) Active Problems Problem Noted Date Diagnosed Date Heart failure 06/16/2024 Paroxysmal atrial flutter 06/16/2024 Polyneuropathy in diseases classified elsewhere 06/16/2024 Depression, unspecified 06/16/2024 Orthostatic hypotension 04/10/2024 Carotid stenosis, asymptomatic, right 12/19/2023 Personal history of [place] (myocardial infarction) 0 10/20/2023 Overview (12/12/2023): 10/20/23 [...] closely with cardiology Continues cardiac rehab via [facility] rehab program Dyslipidemia, goal LDL below 100 04/15/2009 Overview (04/15/2009): Per Lipid Taxonomy. Hearing loss 07/09/2007 documented as of this encounter (statuses as of 07/11/2024) Resolved Problems Problem Noted Date Diagnosed Date [...] 09/03/2017 Genetic Sleep Disorder Resea [facility] Other*[id number] 06/26/2011 12/08/2015 EXAMINATION OF PARTICIPANT I N CLINICAL TRIAL-Genomics 06/04/2009 08/20/2009 Overview (08/20/2009): Renamed Per Clinical Trials Billing Project. Study Titile: Genomic Markers for Patients with Cardiovascular Disease Project #[id number] PI: Radha Yepez MD Please call [phone] with study related questions GENOMICS CARDIO RESEARCH OTHER*[id number] 06/04/2009 06/13/2016 Overview (08/20/2009): Renamed Per Clinical Trials Billing Project. Study Titile: Genomic Markers for Patients with Cardiovascular Disease Project #[id number] PI: Radha Yepez MD Please call [phone] with study related questions Benign neoplasm of [...] as of this encounter (statuses as of 07/11/2024) Immunizations Name Administration Dates Next Due COVID-19 [...] Sign Reading Time Taken Comments Blood Pressure 135/70 07/11/2024 1:05 PM EST Pulse 55 07/11/2024 1:05 PM EST Temperature 36.9 C (98.4 F) 07/11/2024 1:05 PM ES T Respiratory Rate - - Oxygen Saturation 97% 07/11/2024 1:05 PM EST Inhaled Oxygen Concentration - - [...] documented in this encounter Progress Notes * Shreya Talbert, Community Health Fortune Teller - 07/11/2024 12:34 PM EST Telemedicine visit: No Community Health Fortune Teller (CHERRI) documentation: This CHW facilitated home visit with patient and patients mazin Levy. Patient is doing well at this time. Mazin Levy is currently with patient and staying with patient. Mazin Levy reported to this CHW that someone moving forward would always been here with patient. Patient reported that his is on hospice and is at [facility]. Patient is recovering from a heart attack and is doing much better. [facility] was in yesterday and they have discharged there services. Patient reported that his emergency contact Joceline Rodgers is his advocate and helps him out a lot. She helps when he has telehealth appointments and assist him with managing his med minders etc. Patient does not want any thing routed to astrid Moreno. Patient has a psychology appointment coming up on 07/14/24 however he was not sure if it was a telehealth or in person. This CHW and patient called to confirm that it is a telehealth appointment. No falls, is very cautious when standing up and getting himself steady before taking a step. Does use steps to go up and down bedroom and full bathroom are upstairs. Has a bathroom on first level. Uses walker when he needs. Patient is able to still carefor himself. This CHW checked VS and reviewed red flags This CHW encouraged patient to reach out to [facility] intake with any concerns or questions Shreya Talbert- Community Health Worker 1 Support Services/[facility] [email or web address] documented in this encounter Plan of Treatment Upcoming Encounters Date Type Department Care Team (Late st Contact Info) Description 07/14/2024 9:30 AM EDT Telemedicine Psychology [facility] [address] [place] [address] Page Mccurdy LCSW [address] [place] [address] 07/28/2024 11:30 AM EDT Telemedicine Psychology Greg Cloeman [address] [place] [address] Page John LCSW [address] [place] [address] 10/10/2024 1:00 PM EDT [facility] [address] [place] [address] Kaz Robledo MD [address] [place] [address] 10/24/2024 2:00 PM EDT Office [facility] [address] [facility] [address] Mitchell Mack MD [address] [place] [address] 12/29/2024 2:20 PM EDT Telemedicine Neurology Greg [address] [place] [address] Darron Calvillo MD [address] [place], [place] [address] 01/19/2025 11:00 AM EDT Office Visit Cardiology, [facility] [address] [place] [address] Marcia Collins CRNP [address] [place] [address] Scheduled Procedures Name Priority Associated Diagnoses Date/Ti [...] IN PAST YEAR FOR COPD 07/11/2025 07/11/2024 Albumin/Creatinine Ratio 07/17/2026 07/18/2023, 09/05 DTap/Tdap Vaccines [...] Documents on File Type Date Recorded Patient Legal Coordinator Expl anation POLST 04/22/2024 signed on 04/21 * Full Code (Latest Code Status on File) Date Activated Date Inactivated Comments 10/20/2023 10:03 AM 10/26/2023 1:07 AM This order reflects the patients wishes and were consensually agreed upon. Question Answer Comments Discussion of Advance Directives occurred with: Patient Care Teams Ribbon Lapper Tender Relationship Specialty Start Date End Date Kaz Robledo MD [address] [place] [address] PCP - General Family Medicine 03/05/17 documented as of this encounter
--- OUTSIDE RECORDS SUMMARY | 2024-07-17 08:56 | External Medical Summary | Summary of Care ---
Author Name Unknown Organization [facility] Address [address] [place] [address] Phone [phone] Care Team Providers Care Commercial Account Executive Name Role Phone Kaz Robledo MD Primary Care Provider [phone]- [phone] Reason for Visit * Reason Comments Follow Up Encounter Details Date Type Department Care Team (Late st Contact Info) Description 07/10/2024 Documentation Psychology [facility] [address] [place] [address] Page Mccurdy, [facility] [address] [place] [address] Allergies Active Allergy Reactions Criticality Noted Date [...] Oral Tablet (Zetia)Indications :Coronary artery disease of [place] artery of [place] heart with stable angina pectoris (HCC),Dyslipidemia , [...] Tablet Delayed ReleaseIndications :Coronary artery disease involving [place] coronary artery of [place] heart without angina pectoris Take 1 Tablet by mouth in the morning. 100 Tablet 2 4 4:50 PM EST 04/23/20 24 Active Vitamin D3 25 MCG (1000 UT) Oral Tablet (Vitamin D3) Take 1 Tablet by mouth in the morning. 100 Tablet 2 4 4:50 PM EST 04/23/20 24 Active Folic Acid 400 MCG Oral TabletIndications: Coronary artery disease involving [place] coronary artery of [place] heart without angina pectoris Take 1 Tablet [...] closely with cardiology [facility] Dyslipidemia, goal LDL below [...] Disorder Resea [facility] Other*[id number] 06/26/2011 12/08/2015 EXAMINATION OF PARTICIPANT I N CLINICAL TRIAL-Genomics 06/04/2009 08/20/2009 Overview (08/20/2009): Renamed Per Clinical Trials Billing Project. Study Titile: Genomic Markers for Patients with Cardiovascular Disease Project #[id number] PI: Radha Yepez MD Please call [phone] with study related questions GENOMICS CARDIO RESEARCH OTHER*[id number] 06/04/2009 06/13/2016 Overview (08/20/2009): Renamed Per Clinical Trials Billing Project. Study Titile: Genomic Markers for Patients with Cardiovascular Disease Project #[id number] PI: Radha Yepez MD Please call [phone] with study related questions Benign neoplasm of [...] Entry Date Author No 10/20/2023 9:22 AM Roberto Wynn RN documented in this encounter Progress Notes * Page Mccurdy LCSW - 07/10/2024 1:47 PM EST Landen was scheduled for an appointment this date. Received message afterwards that he tried to get on video but was not able to and there was a request for therapist to call him back and he could use support. Therapist called the number given to me which was Landen's number. Left message that therapist will schedule him for Sunday at 9;30 am and for him to call the scheduling number if that does notwork out [phone]. Therapist also provided the crisis number [phone] in case he needs to talk with someone more immediately. documented in this encounter Plan of Treatment Upcoming Encounters Date Type Department Care Team (Late st Contact Info) Description 07/11/2024 12:00 PM EST Home Visit [facility] Coordination [facility] Integration [address] [place] [address] [facility] [address] [place] [address] 07/14/2024 9:30 AM EDT Telemedicine Psychology [facility] [address] [facility] [place] [address] Page Mccurdy, [facility] 132 [facility] [place] [address] 07/28/2024 11:30 AM EDT Telemedicine Psychology Greg Coleman [address] [place] [address] Page John LCSW [address] [facility] [place] [place] [address] 10/10/2024 1:00 PM EDT Office Visit [facility] [address] [place] [phone] Kaz Robledo MD [address] [place] [address] 10/24/2024 2:00 PM EDT Office Visit Dermatology [facility] [address] [place] [address] Mitchell Mack MD [address] [facility] [place], [place] [id number] 12/29/2024 2:20 PM EDT Telemedicine Neurology [address] [place] [address] Darron Calvillo MD [address] [place] [place] [address] 01/19/2025 11:00 AM EDT Office Visit Cardiology, [facility] 132 [facility] [place] [address] Marcia Collins CRNP [address] [facility] [address] Scheduled Procedures Name Priority Associated Diagnoses Date/Ti [...] Documents on File Type Date Recorded Patient Lead Android Developer Deisi LIANG 04/22/2024 signed on 04/21 * Full Code (Latest Code Status on File) Date Activated Date Inactivated Comments 10/20/2023 10:03 AM 10/26/2023 1:07 AM This order reflects the patients wishes and were consensually agreed upon. Question Answer Comments Discussion of Advance Directives occurred with: Patient Care Teams Commercial Account Executive Relationship Specialty Start Date End Date Kaz Robledo MD [address] [place] [address] PCP - General Family Medicine 03/05/17 documented as of this encounter
--- OUTSIDE RECORDS SUMMARY | 2024-07-17 08:56 | External Medical Summary | Summary of Care ---
Author Name Unknown Organization [facility] Address [address] [place] [address] Phone [phone] Care Team Providers Care Powerhouse Attendant Name Role Phone Kaz Robledo MD Primary Care Provider +1- [phone] Reason for Visit * Reason Comments Hospital Follow-Up Encounter Details Date Type Department Care Team (Late st Contact Info) Description 07/08/2024 10:30 AM EST Office Visit Cardiology, [facility] [address] [place] [address] Marcia Collins CRNP [address] [place] [address] Hospital discharge follow-up*; NSTEMI (non-ST elevation myocardial infarction) (HCC); Coronary artery disease involving [place] coronary artery of [place] heart without angina pectoris; Stable angina (HCC); HTN, goal below 140/90; Labile blood pressure; Paroxysmal atrial flutter (HCC); Hyperlipidemia with target LDL less than 70 Allergies Active Allergy Reactions Criticality Noted Date [...] Oral Tablet (Zetia)Indications :Coronary artery disease of [place] artery of [place] heart with stable angina pectoris (HCC),Dyslipidemia , [...] Tablet Delayed ReleaseIndications :Coronary artery disease involving [place] coronary artery of [place] heart without angina pectoris Take 1 Tablet by mouth in the morning. 100 Tablet 2 4 4:50 PM EST 04/23/20 24 Active Vitamin D3 25 MCG (1000 UT) Oral Tablet (Vitamin D3) Take 1 Tablet by mouth in the morning. 100 Tablet 2 4 4:50 PM EST 04/23/20 24 Active Folic Acid 400 MCG Oral TabletIndications: Coronary artery disease involving [place] coronary artery of [place] heart without angina pectoris Take 1 Tablet [...] (HCC) Take 1 tablet per mouth at 8AM-11:30AM-5:3 0PM 270 Tablet 3 5 6:16 PM EST 06/23/19 25 Active Nitroglycerin 0.4 MG Sublingual Tablet Sublingual (Nitrostat)Indicat ions:Stable angina (HCC) Place 1 Tablet under the tongue every 5 minutes as needed for Pain, Chest. Call 911 if you require more than 3 consecutive doses 25 Tablet 5 5 5:35 PM EST 07/09/19 25 Active NITROGLYCERIN 0.4 MG SL SUBLIndications:St able angina (HCC) 1 TAB EVERY 5 MIN NEEDED, UP TO 3 PER EPISODE 25 Tab 5 10/15/19 14 025 Discontin ued(Refil l) documented as of this encounter (statuses as of 07/14/2024) Active Problems Problem Noted Date Diagnosed Date Heart failure 06/16/2024 Paroxysmal atrial flutter 06/16/2024 Polyneuropathy in diseases classified elsewhere 06/16/2024 Depression, unspecified 06/16/2024 Orthostatic hypotension 04/10/2024 Carotid stenosis, asymptomatic, right 12/19/2023 Personal history of OH (myocardial infarction) 0 10/20/2023 Overview (12/12/2023): 10/20/23 [...] Sleep Disorder Resea [facility] Other*[id number] 06/26/2011 12/08/2015 EXAMINATION OF PARTICIPANT I N CLINICAL TRIAL-Genomics 06/04/2009 08/20/2009 Overview (08/20/2009): Renamed Per Clinical Trials Billing Project. Study Titile: Genomic Markers for Patients with Cardiovascular Disease Project #[id number] PI: Radha Yepez MD Please call [phone] with study related questions GENOMICS CARDIO RESEARCH OTHER*[id number] 06/04/2009 06/13/2016 Overview (08/20/2009): Renamed Per Clinical Trials Billing Project. Study Titile: Genomic Markers for Patients with Cardiovascular Disease Project #[id number] PI: Radha Yepez MD Please call [phone] with study related questions Benign neoplasm of [...] Sign Reading Time Taken Comments Blood Pressure 168/90 07/08/2024 10:27 AM EST Pulse 56 07/08/2024 10:27 AM EST Temperature - - Respiratory Rate - - Oxygen Saturation - - Inhaled Oxygen Concentration - - Weight 92.1 kg (203 lb) 07/08/2024 10:27 AM EST Height - - Body Mass Index 29.13 06/02/2024 2:52 PM EST documented in this encounter Functional Status * [...] Progress Notes * Marcia Collins CRNP - 07/08/2024 10:30 AM EST Images from the original note were not included. 07/08/2024 Cardiology Follow Up Primary Air Conditioning Insulation Installer: TBD/Most recently saw Dr. Ko inpatient. Cardiac Problems: 1. 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 Recent NSTEMI May 2024 2. History of postprandial angina resolved. 3. Carotid occlusive disease. 4. Hypertension. 5. Hyperlipidemia. 6. Erectile dysfunction. 7. Peripheral arterial disease. 8. Subarachnoid/subdural hematoma. 9. History of intolerance to atorvastatin. HPI: Landen Camacho is a 79 year old male presents for hospital discharge follow up. He is accompanied today by his son Patient was hospitalized 06/05/24-06/07/2024 after presenting to the ER with chest pain. Patient had gotten up in the middle of the night and went downstairs to get a snack, on the way up the stairs he developed acute onset severe chest pain, relieved initially by SL NTG. He attempted to go back to bed but the pain had returned and he was receiving very little relief from SL NTG prompting him to call 911. Patient had been under a great deal of family stress at that time as well. EKG with no acute ST-T wave elevation; however, high sensitivity troponin were markedly elevated suggestive of a Non-ST elevation OH. Patient has a known history of severe multi-vessel disease with most recent cardiac cath 10/22/2023 as follows: Left main: Mildly diseased LAD: severely diseased wraps around apex and supplies distal inf wall. 100% lesion in the Mid-LD Cx: severely diseased, severely calcified 80% lesion Mid-Cx RCA: Severely diseased 100% lesion in the Prox RCA He was evaluated by CT surgery at that time who declined surgical intervention, and high risk PCI could be considered in the event of a STEMI;however, outcome likely poor. Patient was placed on a heparin gtt x48 hours and Imdur was increased which resolved his chest pain. Patient presents today feeling well overall. He does endorse 1 episode of chest pain since time of discharge (one month ago), that was relieved with use of 2 SL NTG. Son did endorse it occurred aftera stressful interaction with his daughter. Patient continues on toprol xl 12.5mg PO QD, Furosemide 20mg every other day Blood pressures are controlled. Continues also with home monitoring. Currently has home home coming in a few times per week, has a casework supervisor, [facility]. Compliant on all medication therapies with no untoward effects. REVIEW OF SYSTEMS: See HPI for pertinent [...] Refill CALCIUM 500 MG PO TABS Take 1 Tablet by mouth in the morning. 60 Tab 0 docusate sodium (COLACE) 100 [...] are not moving well, taketwice a day (Patient taking differently: Take 17 g by mouth in the morning and 17 g before bedtime.Dissolve one heaping tablespoon in 8 ounces of water or juice. If after one week, bowels are not moving well, take twice a day.) 850 g 1 Melatonin 3 MG Oral Tablet Disintegrating Take 2 Tablets by mouth at bedtime. Triamcinolone Acetonide 0.1 % External Cream (Aristocort) Apply topically to affected area 2 times a day 45 g 0 Multivitamin Adult Oral Tablet Take 1 Tablet by mouth in the morning. 90 Tablet 3 Co Q-10 400 MG Oral Capsule Take 1 Capsule by mouth once. Repatha SureClick 140 MG/ML Subcutaneous Solution Auto-injector (evolocumab) Inject 140 mg under the skin every 14 days. Remove from refrigerator 30 minutes prior to injection. 2 mL 11 Citalopram Hydrobromide 20 MG Oral Tablet (CeleXA) Take 1 Tablet by mouth in the morning. 100 Tablet 0 Ezetimibe 10 MG Oral Tablet (Zetia) Take 1 Tablet by mouth in the morning. 100 Tablet 3 Fluocinonide 0.05 % External Solution Apply to scalp daily Sunday thru as needed for redness and flaking 60 mL 2 Isosorbide Mononitrate ER 60 MG Oral Tablet Extended Release 24 Hour (Imdur) Take 1 Tablet by mouthin the morning. 100 Tablet 3 Ketoconazole 2 % External Shampoo (Nizoral) Apply to scalp 2-3 times per week. 360 mL 0 Metoprolol Succinate ER 25 MG Oral Tablet Extended Release 24 Hour (toPROL XL) Take 1 Tablet by mouth at bedtime. 100 Tablet 0 Aspirin 81 MG Oral Tablet Delayed Release Take 1 Tablet by mouth in the morning. 100 Tablet 2 Vitamin D3 25 MCG (1000 UT) Oral Tablet (Vitamin D3) Take 1 Tablet by mouth in the morning. 100 Tablet 2 Folic Acid 400 MCG Oral Tablet Take 1 Tablet by mouth in the morning. 100 Tablet 3 Clopidogrel Bisulfate 75 MG Oral Tablet (Plavix) Take 1 Tablet by mouth in the morning. 100 Tablet 1 Probiotic Daily Oral Capsule Take 1 Capsule by mouth in the morning. clonazePAM 0.5 MG Oral Tablet (KlonoPIN) Take 1 Tablet by mouth 2 times a day as needed for Anxiety. 60 Tablet 0 Carbidopa-Levodopa ER 25-100 MG Oral Tablet Extended Release (Sinemet CR) Take 1 tablet per mouth at 8AM-11:30AM-5:30PM 270 Tablet 3 Nitroglycerin 0.4 MG Sublingual Tablet Sublingual (Nitrostat) Place 1 Tablet under the tongue every5 minutes as needed for Pain, Chest. Call 911 if you require more than 3 consecutive doses 25 Tablet 5 No current facility-administered medications for this visit. Past Medical History: Diagnosis Date Allergic disorder bee sting Basal cell cancer 11/04/2013 Benign neoplasm of colon 05/11/2008 adenomatous/repeat colonoscopy in 3 yrs Carotid stenosis, non-symptomatic Carotid stenosis, non-symptomatic left side totally obstructed CHR ISCHEMIC HRT DIS NEC 07/08/2009 total occlusion of the proximal LAD with nzam-mx-llsdg collaterals with 50% diffuse mid RCA Depressive disorder, not elsewhere classified Dyslipidemia, goal to be determined Major depressive disorder with single episode, in full remission (HCC) 12/23/2018 Other acute sinusitis Subdural hemorrhage (HCC) Family History Problem Relation Name Age of Onset No Past Hx Mother Lived until 86 Mental Disorder Father "black lung", screen examiner No Past Hx Son Asthma Daughter [...] Partners: Female Social History Narrative Works at [employer] in [place] Social Needs Financial Resource Strain: Low Risk (06/19/2024) Financial Resource Strain Do you have any trouble paying for your medications, or do you think you might in the future? (Adult - for ages 18 years and over): No Food Insecurity: No Food Insecurity (06/19/2024) Food Insecurity Worried About Running Out of Food in the Last Year: Never true Ran Out of Food in the Last Year: Never true Do you need food for this week? (Adult - for ages 18 years and over): No Transportation Needs: No Transportation Needs (06/19/2024) Transportation Needs Do you have trouble getting a ride to medical visits or work? (Adult - for ages 18 years and over):Never True Has lack of transportation kept you from medical appointments, meetings, work, or from getting things needed for daily living? Check all that apply. (Adult - for ages 18 years and over): No Social Connections: Socially Integrated (06/19/2024) Social Connections How often do you feel lonely or isolated from those around you? (Adult - for ages 18 years and over): Never Housing Stability: Low Risk (06/19/2024) Housing Stability Do you currently live in a fpc or have no steady place to sleep at night? (Adult - for ages 18 years and over): No Do you think you are at risk of becoming homeless? (Adult - for ages 18 years and over): No Are you homeless or worried that you might be in the future? (Adult - for ages 18 years and over): No OBJECTIVE/PHYSICAL EXAMINATION: BP 168/90 | Pulse 56 | Wt 92.1 kg (203 lb) | BMI 29.13 kg/m | BSA 2.13 m General: No acute distress. A+Ox3. HEENT: [...] insight. DATA Labs & Imaging Reviewed Below: EKG [facility] 06/05/24 NSR, Left anterior fascicular block LVH Nonspecific ST-T wave abnormality Rate 71bpm Unchanged when compared with prior Echocardiogram 06/05/2024 Echocardiogram 05/22/23 The examination is adequate to [...] 79 year old year old male 1. Hospital discharge follow-up 2. NSTEMI (non-ST elevation myocardial infarction) (HCC) 3. Coronary artery disease involving [place] coronary artery of [place] heart without angina pectoris 4. Stable angina (HCC) -Patient presents today doing well from a cardiac perspective. Offer no new acute concerns. Endorses one single CP episode after a stressful event and relieved with 2 SL NTG. -Patient is aware of the extensive nature of his coronary disease and that maximizing medication management is de la rosa. -We will continue ASA 81mg, Plavix, Zetia, toprol xl, Indur and Repatha. Discussed the potential toattempt an up titration of his Imdur if BP can tolerate it should his CP episodes become more frequent. Next steps will be to proceed with adding Ranexa to his regimen if BP can no longer tolerate Imdur increase or he continues with increasing angina events. - Nitroglycerin 0.4 MG Sublingual Tablet Sublingual (Nitrostat); Place 1 Tablet under the tongue every 5 minutes as needed for Pain, Chest. Call 911 if you require more than 3 consecutive doses Dispense: 25 Tablet; Refill: 5 5. HTN, goal below 140/90 6. Labile blood pressure -Controlled. Continue with home monitoring. Continue Toprol xl and Imdur. Should blood pressures become elevated. Would increase Imdur before adding any other agents. 7. Paroxysmal atrial flutter (HCC) - Question of prior Atrial flutter episode in past. Was on Eliquis for short duration, but no further evidence or episodes were found. No longer on AC therapy 8. Hyperlipidemia with target LDL less than 70 -Continue Atorvastatin and Repatha -Follows with MTM, yearly lipid panel DISPOSITION: Follow up 6 months or if symptoms worsen/fail to improve. All questions were answered to the patients satisfaction. Patient advised to report to ED with any and all emergencies. The patient agrees to the above plan and will call with additional questions or concerns. [facility], [address] [address] I spent a total of 42 minutes on the date of service in preparation, delivery, and documentation ofthe care provided to Landen Camacho excluding any time spent in the performance of separately billed services. This chart was completed in part utilizing [employer] Speech Voice Recognition Software. Grammatical errors, random [...] Nursing Notes * Shelia Valencia CMA - 07/08/2024 10:25 AM EST Examination Room: 7 Name: Landen Camacho Date of : (1945) Reason for Visit: H/D Interim Hospitalization(s): 06/07 [facility] Problems/Concerns: denied Chest Pain/SOB: chest pain happened twice- took nitro. Denied SOB My [facility] is a way you can [...] Description 07/14/2024 9:30 AM EDT Telemedicine Psychology [facility] [address] [place] [address] Page Mccurdy LCSW [facility] [place] [address] 07/28/2024 11:30 AM EDT Telemedicine Psychology Greg Coleman [address] [place] [address] Page John LCSW [address] [place] [address] 10/10/2024 1:00 PM EDT Office Visit [facility] [address] [place] [phone] Kaz Robledo MD [address] [place] [address] 10/24/2024 2:00 PM EDT Office Visit Dermatology [facility] [place] [address] [place] [address] Mitchell Mack MD [address] [place] [address] 12/29/2024 2:20 PM EDT Telemedicine Neurology [address] [place] [address] Darron Calvillo MD [address] [place], [place] [address] 01/19/2025 11:00 AM EDT Office Visit Cardiology, [facility] [address] [place] [address] Marcia Collins CRNP [address] [place] [address] Scheduled Procedures Name Priority Associated Diagnoses Date/Ti [...] Coronary atherosclerosis of unspecified type of vessel, [place] or graft HTN, goal below 140/90 Unspecified essential hypertension Parkinson's disease, unspecified whether dyskinesia present, unspecified whether manifestations fluctuate (HCC) PVD (peripheral vascular disease) (HCC) Peripheral vascular disease, unspecified Adjustment disorder with mixed anxiety and depressed mood Advanced care planning/counseling discussion Other specified counseling Hospital discharge follow-up- Primary Other follow-up examination NSTEMI (non-ST elevation myocardial infarction) (HCC) Acute myocardial infarction, subendocardial infarction, episode of care unspecified Coronary artery disease involving [place] coronary artery of [place] heart without angina pectoris Stable angina (HCC) Other and unspecified angina pectoris HTN, goal below 140/90 Unspecified essential hypertension Labile blood pressure Elevated blood pressure reading without diagnosis of hypertension Paroxysmal atrial flutter (HCC) Atrial flutter Hyperlipidemia with target LDL less than 70 Other and unspecified hyperlipidemia documented in this encounter Advance Directives Documents on File Type Date Recorded Patient News Director Expl anation POLST 04/22/2024 signed on 04/21 * Full Code (Latest Code Status on File) Date Activated Date Inactivated Comments 10/20/2023 10:03 AM 10/26/2023 1:07 AM This order reflects the patients wishes and were consensually agreed upon. Question Answer Comments Discussion of Advance Directives occurred with: Patient Care Teams Powerhouse Attendant Relationship Specialty Start Date End Date Kaz Robledo MD [address] [place] [address] PCP - General Family Medicine 10/30/17 documented as of this encounter
--- OUTSIDE RECORDS SUMMARY | 2024-07-17 08:57 | External Medical Summary | Summary of Care ---
Author Name Unknown Organization [facility] Address [address] [place] [address] Phone [phone] Care Team Providers Care Moto Mix Operator Name Role Phone Kaz Robledo MD Primary Care Provider [phone] Reason for Visit * Reason Comments Anxiety * Evaluate & Treat - Unlimited Visits (Within 10 days (routine)) - Authorized Specialty Diagnoses / Procedures Referred By Contgregor t Referred To Contact Psychiatry Diagnoses Adjustment disorder with mixed anxiety and depressed mood Parkinson's disease, unspecified whether dyskinesia present, unspecified whether manifestations fluctuate ([facility]) Jose F Issa PA-C [address] [place] [address] Phone: tel: fax: Referral ID Status Reason Start Date Expiration Date Visits Requested Visits Authorized [id number] Authorized Specialty Services Required 01/23/2024 [id number] Encounter Details Date Type Department Care Team (Late st Contact Info) Description 06/20/2024 9:30 AM EST Telemedicine Psychology Jose G Coleman [address] [place] [address] Page John LCSW [address] [place] [address] Anxiety state* Allergies Active Allergy Reactions Criticality Noted Date Comments Atorvastatin Muscle pain 12/11/2016 Bee Stings 02/21/1999 Hives,intense itching,edema Gabapentin 10/02/2023 "Couldn't handle it" documented as of this encounter (statuses as of 06/20/2024) Medications CALCIUM 500 MG PO TABS Take [...] dose and a half daily, Reported on 06/19/2024 Melatonin 3 MG Oral Tablet Disintegrating Take 2 Tablets by mouth at bedtime. 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 100 Tablet 2 4 4:50 PM EST 04/23/20 24 Active Vitamin D3 25 MCG (1000 UT) Oral Tablet (Vitamin D3) Take 1 Tablet by mouth in the morning. 100 Tablet 2 4 4:50 PM EST 04/23/20 24 Active Folic Acid 400 MCG Oral TabletIndications: Coronary artery disease involving pauma coronary artery of pauma heart without angina pectoris Take 1 Tablet [...] as of this encounter (statuses as of 06/20/2024) Active Problems Problem Noted Date Diagnosed Date [...] closely with cardiology [facility] Dyslipidemia, goal LDL below 100 04/15/2009 Overview (04/15/2009): Per Lipid Taxonomy. Hearing loss 07/09/2007 documented as of this encounter (statuses as of 06/20/2024) Resolved Problems Problem Noted Date Diagnosed Date [...] disorder 02/15/2012 09/03/2017 Genetic Sleep Disorder [facility] Other*[id number] 06/26/2011 12/08/2015 EXAMINATION OF PARTICIPANT I N CLINICAL TRIAL-Genomics 06/04/2009 08/20/2009 Overview (08/20/2009): Renamed Per Clinical Trials Billing Project. Study Titile: Genomic Markers for Patients with Cardiovascular Disease Project #[id number] PI: Radha Yepez MD Please call [phone] with study related questions GENOMICS CARDIO RESEARCH OTHER*[id number] 06/04/2009 06/13/2016 Overview (08/20/2009): Renamed Per Clinical Trials Billing Project. Study Titile: Genomic Markers for Patients with Cardiovascular Disease Project #[id number] PI: Radha Yepez MD Please call [phone] with study related questions Benign neoplasm of [...] as of this encounter (statuses as of 06/20/2024) Immunizations Name Administration Dates Next Due COVID-19 mRNA, LNP-s, No Pre serve, 2-Dose Series (Moderna) 07/02/2020,06/03/2020 COVID-19, mRNA, LNP-s, PF, B ooster, 100mcg/0.5mg (Moderna) 10/06/2021,03/02/2021 Covid-19, Mrna, Lnp-s, Pf, B ivalent, 30 Mcg, IM, 12 yrs and above (iRates) 02/15/2022 H1N1 2009 Influenza, IM 05/10/2009 Pneumococcal [...] No 06/19/2024 Does the household have a [facility] source of income? (Household - for [...] in this encounter Progress Notes * Page JohnADIN - 06/20/2024 9:22 AM EST Images from the original note were not included. Psychiatry Intake Assessment Patient location: HOME. I was not in a hospital or clinic location. After connecting through televideo, patient was verified with two unique identifiers. Patient (or authorized legal client representative) was then informed that this was a Telemedicine visit and being conducted confidentially over secure lines. Methods to assure confidentiality were taken. Patient acknowledged consent and understanding of privacy and security of the Telemedicine visit. The patient agreed to participate. Provider reviewed elements of Outpatient Services Description including limits of confidentiality, how to contact the department, risks and benefits of treatment and consent for treatment. Start Time: 9:22 AM Stop Time: 9:42 AM Total Time:20 Minutes History of Present Illness Reason for Referral: Landen Camacho is 79 year old. Referred by Jose F Issa PA-C [facility] [place] for Other: Parkinson's disease, unspecified whether dyskinesia present, unspecified whether manifestations fluctuate (HCC) Brief History of Present Illness: Met with patient for intake appointment. Patient states he was referred by his doctor due to anxiety. Patient reports at times he gets a racing heart and elevated blood pressure. Patient reports his anxiety/stress has led to two heart attacks. Patient's has a dx of dementia in a fci facility, admitted to hospice 4 months ago. Patient states his relationship with his daughter is also a stressful one. Patient reports anxiety throughout the past year with his health issues. Denies having a hx of mental health concerns prior. Denies HI/SI/Psychosis. Patient lives in his home. Potential causes/stressors/trauma include: stress with daughter "she wants me to go in a home", 's health conditions. Patient's goal is "get rid of my anxiety" Main Office # for Behavioral Health: [phone] Screening Questionnaires: 10/15/2020 10/27/2021 01/09/2023 06/20/2024 PSYCH QUESTIONNAIRES TOTAL Adult PHQ-9 Total Score 0 9 0 8 Patient completed JULIÁN-7 in pre-visit paperwork and scored 17 [place] Suicide Severity Rating Scale Results 06/20/2024 09:39 [place] SUICIDE SEVERITY RATING SCALE (C-SSRS) Have you wished you were or wished you could go to sleep and not wake up? (In the Past Month or Since Last Visit) No Have you had any actual thoughts of killing yourself? (In the Past Month or Since Last Visit) No Have you been thinking about how you might do this? (In the Past Month or Since Last Visit) No Have you had thoughts and had some intention of acting on them? (In the Past Month or Since Last Visit) No Have you started to work out or worked out the details of how to kill yourself? Do you intend to carry out this plan? (In the Past Month or Since Last Visit) No Have you ever done anything, started to do anything, or prepared to do anything to end your life? (Lifetime) No Was this within the past 3 months? No Level of Risk No Risk Identified Protective Factors Social Support/Family;Access to appropriate services;Help- Seeking Behaviors Risk Factors Anxiety SISQ - How many times in the past year have you used an illegal drug or used a prescription medicine for non-medical reasons? 0 How many times in the past year have you had X or more drinks in a day? 0 (x=5 for men and 4 for women) Past History The patient's past history was reviewed and updated. Past Psychiatry History: Are you currently being treated for a mental health or substance use condition? Yes medication management through PCP. Ever been treated as an outpatient (such as a doctor's or therapist's office or a clinic) for a mental health or substance use condition? No Ever been hospitalized for a mental health or substance use condition? No Ever been to the emergency room for a mental health or substance use condition? No Have you overdosed in the last month? No Mental Status Exam Appearance: unable to assess due to technical difficulties with video visit Behavior: appropriate, cooperative, and pleasant Speech: normal pitch, normal rate, and normal volume Mood: euthymic Affect: mood-congruent Thought Process: within normal limits Thought Content: Delusions: No Hallucinations: No Obsessions: No Homicidal: No Suicidal: No Sensorium: alert and oriented to person, place, time and situation Cognition: grossly intact Insight: fair Judgment: fair Assessment and Plan Diagnostic Impression: Diagnoses listed below are provisional and further assessment and differential diagnosis is needed. ICD-10-CM 1. Anxiety state F41.1 Recommendations/Plan: Individual (general) psychotherapy and Patient will return to PCP for medication follow-up Interactive Complexity: did not involve interactive complexity. National Suicide Prevention Lifeline : 988 Crisis Textline : Text "HOME" to 419898 to connect with a crisis counselor Crisis Numbers by [facility]: [facility] Services - Emergency Services [facility] (978-7-YOU CAN) re:solve Crisis Network [place] . The Open Door - Crisis Intervention [place] [facility] Crisis Help-Line [facility] - Crisis Intervention Services [facility] Service Access [employer] - Crisis Intervention [place] Choose option 1 - [facility] Department of Welder Gianluca Velazquez & Nito Crisis Intervention [facility] - Mental Health Crisis [facility] - Crisis Intervention [place] [facility] - Crisis Intervention Roosevelt Ontiveros [place] - Crisis Line Eddie Ochoa Pike - Mental Health Crisis Hotline [place] [facility] - Crisis Services [place] [facility] Service Access [employer] [place] [employer]. - Crisis Intervention [place] - Mental Health Crisis Intervention Services [place] [facility] MH/ID Program Lior Rey, Leo, Greg - Crisis System [place] [facility] - Crisis Hotline Saray (7-005-430-HZJP) [facility] - Crisis Intervention Yohan [facility] - Crisis Intervention [facility] - Crisis Services David [facility] Health - Crisis Center [place] [phone] [facility] - Crisis Hotline Fernando (8:30 am-5:00 pm) OR (after 5:00 pm, weekends & holidays) Sharlene [facility] Crisis Intervention Program [place] [facility] - Mental Health Crisis Line Abby Maldonado and Ellie - [facility] Crisis Stas & Hawa [facility] - Crisis Intervention [facility] - Mental Health Crisis Service [place] [facility] Crisis Intervention [place] [facility] - Crisis Intervention [place] & Geovani [facility] - Help Line [facility] MH/ID Program Jose [facility] - Crisis Intervention [place] [facility] - Crisis Intervention [place] [facility] Emergency Services, [facility] - Crisis Intervention [place] [facility] Health - Emergency Services [place] [facility] - Crisis Line [place] - DBHIDS - Suicide and Crisis Intervention Hotline [facility] - Crisis/ Emergency Services [place] [facility] - Emergency Contact Line [place] [facility] - Crisis Line Lena ext. 1 [facility] Human Services [facility] Action - Crisis Intervention Hotline [place] [facility] Crisis Intervention Services documented in this encounter Plan of Treatment Upcoming Encounters Date Type Department Care Team (Late st Contact Info) Description 06/23/2024 3:00 PM EST Office Visit Neurology [facility] [place] [address], [place] [address] Darron Calvillo MD [address] [facility] [place] [address] 06/26/2024 2:30 PM EST Home Visit [facility] [address] [place] [address] Aron Schmid, RN [address] [place] [address] 07/01/2024 2:30 PM EST Home Visit [facility], [facility] [address] [facility] [place] [address] Aron Schmid, RN [address] [facility] [place] [address] 07/07/2024 11:30 AM EST Scheduled Telephone [facility], [facility] [address] [facility] [place] [address] Teresa Johnson, RDN [address] [facility] [place] [address] 07/08/2024 10:30 AM EST Office Visit Cardiology, [facility] [address] [facility] [place] [address] Marcia Collins CRNP [address] [facility] [address] 07/10/2024 12:30 PM EST Telemedicine Psychology [facility] [address] [facility] [place] [address] Page Mccurdy LCSW [address] [facility] [address] 07/28/2024 11:30 AM EDT Telemedicine Psychology Jose G Coleman [address] [place] [address] Page John LCSW [address] [place] [address] 10/10/2024 1:00 PM EDT Office [facility] [place] [facility] [address] [facility] [place] [phone] Kaz Robledo MD [address] [facility] [place] [phone] 10/24/2024 2:00 PM EDT Office Visit Dermatology [place] Neelam Styles [address] [place], [place] [address] Mitchell Mack MD [address] [place] [address] Scheduled Procedures Name Priority Associated Diagnoses Date/Ti me COLONOSCOPY FLEXIBLE PROXIMAL DIAGNOSTIC Recall History of colon polyps Scheduled Referrals Name Type Priority Associated Diagnoses Orde r Schedule ADULT/PEDS PSYCHIATRY REFERRAL OP Referral Within 10 days (routine) Adjustment disorder with mixed anxiety and depressed mood Parkinson's disease, unspecified whether dyskinesia present, unspecified whether manifestations fluctuate (HCC) Ordered: 01/23/2024 Health Maintenance Due Date Last Done Comments [...] ASSESSMENT COMPLETED IN PAST YEAR FOR COPD 06/10/2025 06/10/2024 Albumin/Creatinine Ratio 07/17/2026 07/18/2023, 09/05 DTap/Tdap Vaccines (3 - Td or Tdap) 08/26/2028 08/26/2018, 01/27/2008 Pneumococcal Vaccine: 50+ Years Completed 02/02/2015, 01/24/2010, 03/02/2001 RETIRED - COLONOSCOPY-ANNUAL AGES 18-100 Discontinued 03/20/2019, 03/20/2019, 10/15/2017, Additional history exists Zoster Vaccines Completed 06/07/2019, 0 12/2018, 02/03/2009 Influenza Vaccine (FLU shot) Completed [...] Coronary atherosclerosis of unspecified type of vessel, pauma or graft HTN, goal below 140/90 Unspecified essential hypertension Parkinson's disease, unspecified whether dyskinesia present, unspecified whether manifestations fluctuate (HCC) PVD (peripheral vascular disease) (HCC) Peripheral vascular disease, unspecified Adjustment disorder with mixed anxiety and depressed mood Advanced care planning/counseling discussion Other specified counseling Anxiety state- Primary Anxiety state, unspecified documented in this encounter Advance Directives Documents on File Type Date Recorded 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 Question Answer Comments Discussion of Advance Directives occurred with: Patient Care Teams Moto Mix Operator Relationship Specialty Start Date End Date Kaz Robledo MD [address] [place] [address] PCP - General Family Medicine 03/05/17 documented as of this encounter
--- OUTSIDE RECORDS SUMMARY | 2024-07-17 08:57 | External Medical Summary | Summary of Care ---
Author Name Unknown Organization [facility] Address [address] [place] [address] Phone [phone] Care Team Providers Care Acetaldehyde Converter Operator Name Role Phone Usha Michaels MD Primary Care Provider [phone]- [phone] Reason for Visit * Reason Comments Return Neuro Encounter Details Date Type Department Care Team (Latest Contact Info) Description 06/23/2024 3:00 PM EST Office Visit Neurology [facility] [address] [place] [address] Darron Birch MD [address] [place] [address] Parkinson's disease without dyskinesia or fluctuating manifestations (HCC)*; Anxiety Allergies Active Allergy Reactions Criticality Noted Date Comments Atorvastatin Muscle pain 12/11/2016 Bee Stings 02/21/1999 Hives,intense itching,edema Gabapentin 10/02/2023 "Couldn't handle it" documented as of this encounter (statuses as of 06/24/2024) Medications CALCIUM 500 MG PO TABS Take [...] 2-3 x's per week. 30 g 4 Active Diclofenac Sodium 1 % External GelIndications:Ac koi pain of right shoulder Apply 4 gm topically to right shoulder 4 times a day 200 g 1 021 Active Polyethylene Glycol 3350 17 GM/SCOOP Oral Powder (MiraLax)Indicati ons:Chronic constipation Take 17 g by mouth daily. Dissolve one heaping tablespoon in 8 ounces of water or juice. If after one week, bowels are not moving well, take twice a day 850 g 1 Active Additional Information Patient taking differently:17 g [...] 2 times a day 45 g Active Additional Information Patient not taking.Reported on 06/23/2024 Multivitamin Adult Oral Tablet Take 1 Tablet by mouth in the morning. 90 Tablet 3 Active Co Q-10 400 MG Oral Capsule Take 1 Capsule by mouth once. Active Repatha SureClick 140 MG/ML Subcutaneous Solution Auto-injector (evolocumab) Inject 140 mg under the skin every 14 days. Remove from refrigerator 30 minutes prior to injection. 2 mL 06/16/19 25 8:28 AM EST Active Citalopram Hydrobromide 20 MG Oral Tablet (CeleXA)Indicatio ns:Major depressive disorder, recurrent episode, mild (HCC) Take 1 Tablet by mouth in the morning. 100 Tablet 05/24/19 11:15 AM EST Active Ezetimibe 10 MG Oral Tablet (Zetia)Indication s:Coronary artery disease of [place] artery of [place] heart with stable angina pectoris (HCC),Dyslipidemi a, goal LDL below 100 Take 1 Tablet by mouth in the morning. 100 Tablet 3 05/20/19 25 8:51 AM EST 024 Active Fluocinonide 0.05 % External SolutionIndicatio ns:Seborrheic dermatitis Apply to scalp daily Sunday thru as needed for redness and flaking 60 mL 2 04/23/20 24 4:50 PM EST 024 Active Isosorbide Mononitrate ER 60 MG Oral Tablet Extended Release 24 Hour (Imdur)Indication s:Chronic coronary artery disease,Stable angina (HCC) Take 1 Tablet by mouth in the morning. 100 Tablet 3 04/23/20 24 4:50 PM EST 024 Active Ketoconazole 2 % External Shampoo (Nizoral)Indicati ons:Seborrheic dermatitis Apply to scalp 2-3 times per week. 360 mL 024 Active Metoprolol Succinate ER 25 MG Oral Tablet Extended Release 24 Hour (toPROL XL) Take 1 Tablet by mouth at bedtime. 100 Tablet 04/23/20 24 4:50 PM EST 024 Active Aspirin 81 MG Oral Tablet Delayed ReleaseIndication s:Coronary artery disease involving [place] coronary artery of [place] heart without angina pectoris Take 1 Tablet by mouth in the morning. 100 Tablet 2 04/23/20 24 4:50 PM EST 024 Active Vitamin D3 25 MCG (1000 UT) Oral Tablet (Vitamin D3) Take 1 Tablet by mouth in the morning. 100 Tablet 2 04/23/20 24 4:50 PM EST 024 Active Folic Acid 400 MCG Oral TabletIndications :Coronary artery disease involving [place] coronary artery of [place] heart without angina pectoris Take 1 Tablet by mouth in the morning. 100 Tablet 3 04/24/20 24 5:47 PM EST 024 Active Clopidogrel Bisulfate 75 MG Oral Tablet (Plavix) Take 1 Tablet by mouth in the morning. 100 Tablet 1 05/08/19 25 2:44 PM EST 024 Active Probiotic Daily Oral Capsule Take 1 Capsule by mouth in the morning. Active clonazePAM 0.5 MG Oral Tablet (KlonoPIN)Indicat ions:Adjustment disorder with mixed anxiety and depressed mood Take 1 Tablet by mouth 2 times a day as needed for Anxiety. 60 Tablet 025 Active Carbidopa-Levodop a ER 25-100 MG Oral Tablet Extended Release (Sinemet CR)Indications:Pa rkinson's disease without dyskinesia or fluctuating manifestations (HCC) Take 1 tablet per mouth at 8AM-11:30AM-5:3 0PM 270 Tablet 3 025 Active Carbidopa-Levodop a ER 25-100 MG Oral Tablet Extended Release (Sinemet CR) Take 1 Tablet by mouth in the morning and 1 Tablet before bedtime. 200 Tablet 1 05/20/19 25 8:51 AM EST 024 2024 Discontinued documented as of this encounter (statuses as of 06/24/2024) Active Problems Problem Noted Date Diagnosed Date [...] closely with cardiology [facility] Dyslipidemia, goal LDL below 100 04/15/2009 Overview (04/15/2009): Per Lipid Taxonomy. Hearing loss 07/09/2007 documented as of this encounter (statuses as of 06/24/2024) Resolved Problems Problem Noted Date Diagnosed Date [...] 09/03/2017 Genetic Sleep Disorder [facility] Other*[id number] 06/26/2011 12/08/2015 EXAMINATION OF PARTICIPANT I N CLINICAL TRIAL-Genomics 06/04/2009 08/20/2009 Overview (08/20/2009): Renamed Per Clinical Trials Billing Project. Study Titile: Genomic Markers for Patients with Cardiovascular Disease Project #[id number] PI: Radha Yepez MD Please call [phone] with study related questions GENOMICS CARDIO RESEARCH OTHER*[id number] 06/04/2009 06/13/2016 Overview (08/20/2009): Renamed Per Clinical Trials Billing Project. Study Titile: Genomic Markers for Patients with Cardiovascular Disease Project #[id number] PI: Radha Yepez MD Please call [phone] with study related questions Benign neoplasm of [...] as of this encounter (statuses as of 06/24/2024) Immunizations Name Administration Dates Next Due COVID-19 mRNA, LNP-s, No Pre serve, 2-Dose Series (Moderna) 07/02/2020,06/03/2020 COVID-19, mRNA, LNP-s, PF, B ooster, 100mcg/0.5mg (Moderna) 10/06/2021,03/02/2021 Covid-19, Mrna, Lnp-s, Pf, B ivalent, 30 Mcg, IM, 12 yrs and above ([employer]) 02/15/2022 H1N1 2009 Influenza, IM 05/10/2009 Pneumococcal [...] Sign Reading Time Taken Comments Blood Pressure 138/80 06/23/2024 2:53 PM EST Pulse 61 06/23/2024 2:53 PM EST Temperature 36.7 C (98.1 F) 06/23/2024 2:53 PM ES T Respiratory Rate 18 06/23/2024 2:53 PM EST Oxygen Saturation 95% 06/23/2024 2:53 PM EST Inhaled Oxygen Concentration - - Weight 90.3 kg (199 lb) 06/23/2024 2:53 PM EST Height - - Body Mass Index 28.55 06/02/2024 2:52 PM EST documented in this [...] documented in this encounter Progress Notes * Darron Birch MD - 06/23/2024 3:35 PM EST Patient location: HOME. I was not in a hospital or clinic location. After connecting through televideo, patient was verified with two unique identifiers. Patient (or authorized legal customer development representative) was then informed that this was a Telemedicine visit and being conducted confidentially over secure lines. Methods to assure confidentiality were taken. Patient acknowledged consent and understanding of privacy and security of the Telemedicine visit. The patient agreed to participate. 06/23/2024 3:36 PM Landen Camacho 79 year old male REF: USHA MICHAELS [address] [place] Call [phone] (office) [phone] (fax) Asked by Usha Michaels MD to render opinion regarding treatment of Parkinson's CC: Chief Complaint Patient presents with Return Neuro HPI: The patient has last seen 4 months ago for treatment of his Parkinson's. He has a tremor dominant Parkinson's that started in early 2022. Because of him having difficulty tolerating immediate release carbidopa levodopa (which reportedly resulted in tremor reduction) with orthostatic hypotension tendency I switched him to slow release carbidopa levodopa 25/100 twice a day. I suggested a dose reduction of amlodipine in case of persisting orthostatic hypotension tendency. He has significant fatigue during the day and anxiety. He had an abnormal DaTSCAN. He is able to ambulate with a 4 prong cane. Daughter still has access to patient portal which he does not want. Son Cam is POA now. Not Tiffanie, He does not want access given to his daughter. His last dose of Carbidopa/Levodopa at 8 and 5PM. He was having lots of stress in the last couple months. The tremors have clearly increased. He is here with critical care rn who he has over his POA. He saw a psychiatrist initially last week. He has support at home. PAST MEDICAL HISTORY: Patient Active Problem List Diagnosis Date Noted Heart failure (HCC) [I50.9] 06/16/2024 Paroxysmal atrial flutter (HCC) [I48.92] 06/16/2024 Polyneuropathy in diseases classified elsewhere (HCC) [G63] 06/16/2024 Depression, unspecified [F32.A] 06/16/2024 Orthostatic hypotension [I95.1] 04/10/2024 Carotid stenosis, asymptomatic, right [I65.21] 12/19/2023 Personal history of IA (myocardial infarction) [I25.2] 10/20/2023 10/20/23 Parkinson's disease (HCC) [G20.A1] 10/20/2023 Chronic obstructive pulmonary disease (HCC) [J44.9] 05/25/2023 Major depressive disorder, recurrent episode, mild (HCC) [F33.0] 05/25/2023 Adjustment disorder with mixed anxiety and depressed mood [F43.23] 05/25/2023 Anxiety [F41.9] 08/03/2022 Other atherosclerosis of [place] arteries of extremities, 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 Dissolve one heaping tablespoon in 8 ounces of water or juice. If after one week, bowels are not moving well, take twice a day Takes a dose and a half daily.) 850 g 1 Melatonin 3 MG Oral Tablet Disintegrating Take 2 Tablets by mouth at bedtime. Multivitamin Adult Oral Tablet Take 1 Tablet [...] mouth in the morning. 100 Tablet 3 Isosorbide Mononitrate ER 60 MG Oral Tablet [...] mouth in the morning. 100 Tablet 3 Carbidopa-Levodopa ER 25-100 MG Oral Tablet Extended Release (Sinemet CR) Take 1 Tablet by mouth inthe morning and 1 Tablet before bedtime. 200 Tablet 1 Clopidogrel Bisulfate 75 MG Oral Tablet (Plavix) Take 1 Tablet by mouth in the morning. 100 Tablet 1 Probiotic Daily Oral Capsule Take 1 Capsule by mouth in the morning. clonazePAM 0.5 MG Oral Tablet (KlonoPIN) Take 1 Tablet by mouth 2 times a day as needed for Anxiety. 60 Tablet 0 Triamcinolone Acetonide 0.1 % External Cream (Aristocort) Apply topically to affected area 2 times a day (Patient not taking: Reported on 06/03/2024) 45 g 0 Fluocinonide 0.05 % External Solution Apply to scalp daily Sunday thru as needed for redness and flaking 60 mL 2 No current facility-administered medications for this [...] date: 05/07/1972 Quit date: 05/07/2002 Years since quittin.1 Passive exposure: Past Smokeless tobacco: Never Tobacco comments: no smoking since 2002 Vaping Use Vaping status: Never Used Substance and Sexual Activity Alcohol use: No Drug use: No Sexual activity: Yes Partners: Female Other Topics Concern Not on file Social History Narrative Works at [employer] in [place] Social Needs Financial Resource Strain: Low Risk (06/19/2024) Financial Resource Strain Do you have any trouble paying for your medications, or do you think you might in the future? (Adult - for ages 18 years and over): No Does your family have trouble paying for medicine? (Household - for ages 0-17 years): Not on file Food Insecurity: No Food Insecurity (06/19/2024) Food [...] 18 years and over): No Do you (or your family) have trouble finding or paying for a ride (transportation)? (Household - for ages 0-17 years): Not on file Social Connections: Socially Integrated (06/19/2024) Social Connections How often do you feel lonely or isolated from those around you? (Adult - for ages 18 years and over): Never Housing Stability: Low Risk (06/19/2024) Housing Stability Do you currently live in a nursing home or have no steady place to sleep [...] 18 years and over): No Are you (or your family) homeless or worried that you might be in the future? (Household - for ages0-17 years): Not on file Occupation: HIV risk factors: None FAMILY HISTORY Family History Problem Relation Name Age of Onset No Past Hx Mother Lived until 86 Mental Disorder Father "black lung", forensic computer examiner No Past Hx Son Asthma Daughter ? Other (AAA) Daughter Denies FH of AAA Family Status Relation Status Mo at age 87 old age. IA at 82yo Fa at age 76 massive IA Sis Alive Son (Not Specified) Ahsan (Not Specified) REVIEW OF SYSTEMS: The patient denies new cardiac, lung, kidney, liver, skin, thyroid, bladder, or digestive problems.The patient also denies acute changes in hearing or vision. Otherwise, all other systems are negative or as noted above. BP 138/80 | Pulse 61 | Temp 36.7 C (98.1 F) (Skin) | Resp 18 | Wt 90.3 kg (199 lb) | SpO2 95% |BMI 28.55 kg/m | BSA 2.11 m The patient is a 79 year old male who is well developed and appears to be their stated age. NEUROLOGIC EXAMINATION: Mental status: Intact higher integrative functions. Orientated to person, place, and time. Recent and remote memory functions are intact. Attention, concentration, language, and fund of knowledge arenormal. Judgment and insight are intact. Mood and affect are normal. Mild hypomimia, no hypophonia or hypokinetic dysarthria. Motor exam with emerging right hand resting tremor and to lesser degree left hand resting tremor with equal 4.5 hertz frequency. Slightly reduced arm swing bilaterally in 2 to 3 extra turns but no camptocormia. Pull test was negative. No significant rigidity, mild bradykinesia on the left. IMPRESSION: He has tremor dominant Parkinson's. His tremors are aggravated by excessive physiologic tremors dueto anxiety and stress. He does not have significant side effects to slow release carbidopa levodopa. There is still room to go up on the dose. He needs something effective to treat his anxiety, he has not trialed Lavender oil capsules yet or medical marijuana. RECOMMENDATIONS: At this point, I would like to raise carbidopa/levodopa to slow release 25/100 3 times a day. I gave him information about the special formulation of calm24. If he does not get sufficient relief he may want to consider medical marijuana. I would be careful with any type of other brain impairing medications Thank-you for letting me participate in the care of this patient. I spent approximately 30 minutes with this patient greater than half the time was spent reviewing diagnosis, physical exam, and treatment. Darron Birch MD Neurology [address] [address] Please send copy to requesting physician, Usha Michaels MD documented in this encounter Nursing Notes * Elida Paulino LPN - 06/23/2024 2:53 PM EST Patient verified identity by spelling of last name and date. Chief Complaint Patient presents with Return Neuro documented in this encounter Miscellaneous Notes * Addendum Note - Darron Birch MD - 06/23/2024 4:04 PM ESTAddended by: DARRON BIRCH on: 06/23/2024 04:04 PM Modules accepted: Orders documented in this encounter Plan of Treatment Upcoming Encounters Date Type Department Care Team (Late st Contact Info) Description 06/26/2024 2:30 PM EST [facility] Visit [facility], [facility] [address] [place] [address] Aron Schmid, RN [address] [place] [address] 07/01/2024 2:30 PM EST Home Visit [facility], [facility] [address] [place] [address] Aron Schmid, GUS [address] [facility] [place] [address] 07/07/2024 11:30 AM EST Scheduled Telephone [facility], [facility] [address] [facility] [place] [address] Teresa Johnson RDN [address] [place] [address] 07/08/2024 10:30 AM EST Office Visit Cardiology, [facility] [address] [place] [address] Marcia Collins CRNP [address] [place] [address] 07/10/2024 12:30 PM EST Telemedicine Psychology [facility] [address] [place] [address] Page Mccurdy, FABRICATOR INDUSTRIAL FURNACE [address] [place] [address] 07/28/2024 11:30 AM EDT Telemedicine Psychology Jose G Coleman [address] [place] [address] Page John LCSW [address] [place] [address] 10/10/2024 1:00 PM EDT Office Visit [facility] [address] [place] [phone] Usha Michaels MD [address] [place] [address] 10/24/2024 2:00 PM EDT Office Visit Derm[facility]ology [facility] [address] [facility] [place] [address] Mitchell Mack MD [address] [place] [address] 12/29/2024 2:20 PM EDT Telemedicine Neurology [address] [place] [address] Darron Birch MD [address] [facility] [place] [address] Scheduled Procedures Name Priority Associated Diagnoses [...] ASSESSMENT COMPLETED IN PAST YEAR FOR COPD 06/23/2025 06/23/2024 Albumin/Creatinine Ratio 07/17/2026 07/18/2023, 09/05 DTap/Tdap Vaccines [...] Coronary atherosclerosis of unspecified type of vessel, [place] or graft HTN, goal below 140/90 Unspecified essential hypertension Parkinson's disease, unspecified whether dyskinesia present, unspecified whether manifestations fluctuate (HCC) PVD (peripheral vascular disease) (HCC) Peripheral vascular disease, unspecified Adjustment disorder with mixed anxiety and depressed mood Advanced care planning/counseling discussion Other specified counseling Parkinson's disease without dyskinesia or fluctuating manifestations (HCC)- Primary Anxiety Anxiety state, unspecified documented in this encounter Advance Directives Documents on File Type Date Recorded Patient Adjuster Piano Action Deisi LIANG 04/22/2024 signed on 04/21 * Full Code (Latest Code Status on File) Date Activated Date Inactivated Comments 10/20/2023 10:03 AM 10/26/2023 1:07 AM This order reflects the patients wishes and were consensually agreed upon. Question Answer Comments Discussion of Advance Directives occurred with: Patient Care Teams Acetaldehyde Converter Operator Relationship Specialty Start Date End Date Usha Michaels MD [address] [facility] [place] [address] PCP - General Family Medicine 03/05/17 documented as of this encounter
--- OUTSIDE RECORDS SUMMARY | 2024-07-17 08:57 | External Medical Summary | Summary of Care ---
Author Name Unknown Organization [facility] Address [address] [place] [address] Phone [phone] Care Team Providers Care Commercial Intelligence Manager Name Role Phone Kaz Robledo MD Primary Care Provider +1- [phone] Reason for Visit * Reason Onset Date Comments Home Health 06/24/2024 Encounter Details Date Type Department Care Team (Late st Contact Info) Description 06/24/2024 Telephone [facility] [address] [place] [address] Kaz Robledo MD [address] [place] [address] Home Health Allergies Active Allergy Reactions Criticality Noted Date [...] Oral Tablet (Zetia)Indications :Coronary artery disease of [place] artery of [place] heart with stable angina pectoris (HCC),Dyslipidemia , [...] Tablet Delayed ReleaseIndications :Coronary artery disease involving [place] coronary artery of [place] heart without angina pectoris Take 1 Tablet by mouth in the morning. 100 Tablet 2 4 4:50 PM EST 04/23/20 24 Active Vitamin D3 25 MCG (1000 UT) Oral Tablet (Vitamin D3) Take 1 Tablet by mouth in the morning. 100 Tablet 2 4 4:50 PM EST 04/23/20 24 Active Folic Acid 400 MCG Oral TabletIndications: Coronary artery disease involving [place] coronary artery of [place] heart without angina pectoris Take 1 Tablet [...] mouth at 8AM-11:30AM-5:30 PM 270 Tablet 3 06/23/19 25 Active documented as of this [...] closely with cardiology Continues cardiac rehab via [facility] rehab program Dyslipidemia, goal LDL below [...] disorder 02/15/2012 09/03/2017 Genetic Sleep Disorder [facility] Other*[id number] 06/26/2011 12/08/2015 EXAMINATION OF PARTICIPANT I N CLINICAL TRIAL-Genomics 06/04/2009 08/20/2009 Overview (08/20/2009): Renamed Per Clinical Trials Billing Project. Study Titile: Genomic Markers for Patients with Cardiovascular Disease Project #[id number] PI: Radha Yepez MD Please call [phone] with study related questions GENOMICS CARDIO RESEARCH OTHER*[id number] 06/04/2009 06/13/2016 Overview (08/20/2009): Renamed Per Clinical Trials Billing Project. Study Titile: Genomic Markers for Patients with Cardiovascular Disease Project #[id number] PI: Radha Yepez MD Please call [phone] with study related questions Benign neoplasm of [...] encounter Miscellaneous Notes * Telephone Encounter - Alla Stewart LPN - 06/24/2024 8:55 AM EST GUS Tovar calling from [facility] Wanting to get clarification on clonazepam script as patient stated that it was changed to 3 time per day and La did not see that noted on her paperwork from Neurology yesterday. Reviewed Neuro note, advised that clonazepam was not changed but his Carbidopa-Levodopa Was changed to ER 25-100- 8am, 11:30am and 5:30pm. No further questions or concerns at this time. documented in this encounter Plan of Treatment Upcoming Encounters Date Type Department Care Team (Late st Contact Info) Description 06/26/2024 2:30 PM EST [facility] Visit [facility] [place], [facility] [address] [place] [address] Aron Schmid RN [address] [place] [address] 07/01/2024 2:30 PM EST Home Visit [facility], [facility] [address] [place] [address] Aron Schmid RN [address] [place] [address] 07/07/2024 11:30 AM EST Scheduled Telephone [facility], [facility] [address] [place] [address] Teresa Johnson, RDN [address] [facility] [place] [address] 07/08/2024 10:30 AM EST Office Visit Cardiology, [facility] [address] [place] [address] Marcia Collins CRNP [address] [place] [address] 07/10/2024 12:30 PM EST Telemedicine Psychology [facility] 132 [place] [address] Page Mccurdy, ROAD GRADER [address] [place] [address] 07/28/2024 11:30 AM EDT Telemedicine Psychology Jose G Coleman [address] [place] [address] Page John LCSW [address] [place] [address] 10/10/2024 1:00 PM EDT Office Visit [facility], [facility] [address] [place] [phone] Kaz Robldeo MD [address] [place] [address] 10/24/2024 2:00 PM EDT Office Visit Dermatology [facility] [place] [address] [place], [place] [address] Mitchell Mack MD [address] [place], [place] [address] 12/29/2024 2:20 PM EDT Telemedicine Neurology [address] [place] [address] Darron Calvillo MD [address] [place], [place] [id number] Scheduled Procedures Name Priority Associated Diagnoses Date/Ti [...] Documents on File Type Date Recorded Patient Qa Lead Deisi LIANG 04/22/2024 signed on 04/21 * Full Code (Latest Code Status on File) Date Activated Date Inactivated Comments 10/20/2023 10:03 AM 10/26/2023 1:07 AM This order reflects the patients wishes and were consensually agreed upon. Question Answer Comments Discussion of Advance Directives occurred with: Patient Care Teams Commercial Intelligence Manager Relationship Specialty Start Date End Date Kaz Robledo MD [address] [place] [address] PCP - General Family Medicine 03/05/17 documented as of this encounter
--- OUTSIDE RECORDS SUMMARY | 2024-07-17 08:57 | External Medical Summary | Summary of Care ---
Author Name Unknown Organization [facility] Address [address] [place] [address] Phone [phone] Care Team Providers Care Nurse Clinical Name Role Phone Usha Michaels MD Primary Care Provider +1- [phone] Reason for Visit * Reason Comments Return Neuro Encounter Details Date Type Department Care Team (Latest Contact Info) Description 06/23/2024 3:00 PM EST Office Visit Neurology [facility] [address] [place] [address] Darron Birch MD [address] [place] [address] Parkinson's disease without dyskinesia or [...] Active Diclofenac Sodium 1 % External GelIndications:Ac [place] sal[place] pain of right shoulder Apply 4 gm [...] Oral Tablet (Zetia)Indication s:Coronary artery disease of [place] artery of [place] heart with stable angina pectoris (HCC),Dyslipidemi a, [...] Tablet Delayed ReleaseIndication s:Coronary artery disease involving [place] coronary artery of [place]ag[place] heart without angina pectoris Take 1 Tablet by mouth in the morning. 100 Tablet 2 04/23/20 24 4:50 PM EST 024 Active Vitamin D3 25 MCG (1000 UT) Oral Tablet (Vitamin D3) Take 1 Tablet by mouth in the morning. 100 Tablet 2 04/23/20 24 4:50 PM EST 024 Active Folic Acid 400 MCG Oral TabletIndications :Coronary artery disease involving [place] coronary artery of [place] heart without angina pectoris Take 1 Tablet [...] stenosis, asymptomatic, right 12/19/2023 Personal history of [place] (myocardial infarction) 0 10/20/2023 Overview (12/12/2023): 10/20/23 [...] closely with cardiology [facility] Dyslipidemia, goal LDL below [...] disorder 02/15/2012 09/03/2017 Genetic Sleep Disorder Resea [facility] Other*[id number] 06/26/2011 12/08/2015 EXAMINATION OF PARTICIPANT I N CLINICAL TRIAL-Genomics 06/04/2009 08/20/2009 Overview (08/20/2009): Renamed Per Clinical Trials Billing Project. Study Titile: Genomic Markers for Patients with Cardiovascular Disease Project #[id number] PI: Radha Yepez MD Please call [phone] with study related questions GENOMICS CARDIO RESEARCH OTHER*[id number] 06/04/2009 06/13/2016 Overview (08/20/2009): Renamed Per Clinical Trials Billing Project. Study Titile: Genomic Markers for Patients with Cardiovascular Disease Project #[id number] PI: Radha Yepez MD Please call [phone] with study related questions Benign neoplasm of [...] 30 Mcg, IM, 12 yrs and above ([employer]) 02/15/2022 H1N1 2009 Influenza, IM 05/10/2009 Pneumococcal [...] two unique identifiers. 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 Methods to assure confidentiality were taken. Patient acknowledged consent and understanding of privacy and security of the Telemedicine visit. The patient agreed to participate. 06/23/2024 3:36 PM Landen Camacho 79 year old male REF: USHA MICHAELS [address] [place] [phone] (office) [phone] (fax) Asked by Usha Michaels MD to [...] have clearly increased. He is here with resident care provider who he has over his POA. 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 Other (AAA) Daughter Denies FH of AAA Family Status Relation Status Mo at age 87 old age. [place] at 82yo Fa at age 76 massive [place] Sis Alive Son (Not Specified) Ahsan (Not [...] exam, and treatment. Darron Birch MD Neurology [address] [address] Please send copy to requesting physician, Usha [...] PM EST [facility], [facility] [address] [place] [address] Aron Schmid, RN [address] [place] [address] 07/01/2024 2:30 PM EST Home Visit [facility], [facility] [address] [place] [address] Aron Schmid, GUS [address] [facility] [place] [address] 07/07/2024 11:30 AM EST Scheduled Telephone [facility], [facility] [address] [facility] [place] [address] Teresa Johnson RDN [address] [place] [address] 07/08/2024 10:30 AM EST Office Visit Cardiology, [facility] [address] [place] [address] Marcia Collins CRNP [address] [place] [address] 07/10/2024 12:30 PM EST Telemedicine Psychology [facility] [address] [place] [address] Page Mccurdy, ASSET PROTECTION OFFICER [address] [place] [address] 07/28/2024 11:30 AM EDT Telemedicine Psychology Jose [address] Coleman [address] [place] [address] Page John LCSW [address] [place] [address] 10/10/2024 1:00 PM EDT [facility] [address] [place] [address] Usha Michaels MD [address] [place] [address] 10/24/2024 2:00 PM EDT Office Visit Dermatology [facility] [address] [facility] [place] [address] Mitchell Mack MD [address] [place] [address] 12/29/2024 2:20 PM EDT Telemedicine Neurology [address] [place] [address] Darron Birch MD [address] [facility] [place] [address] Scheduled Procedures Name Priority [...] Coronary atherosclerosis of unspecified type of vessel, kaguy[place] or graft HTN, goal below 140/90 Unspecified [...] Documents on File Type Date Recorded Patient Meter Engineer Deisi LIANG 04/22/2024 signed on 04/21 * Full Code (Latest Code Status on File) Date Activated Date Inactivated Comments 10/20/2023 10:03 AM 10/26/2023 1:07 AM This order reflects the patients wishes and were consensually agreed upon. Question Answer Comments Discussion of Advance Directives occurred with: Patient Care Teams Nurse Clinical Relationship Specialty Start Date End Date Usha Michaels MD [address] [facility] [place] [address] PCP - General Family Medicine 03/05/17 documented as of this encounter
--- OUTSIDE RECORDS SUMMARY | 2024-07-17 08:57 | External Medical Summary | Summary of Care ---
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 100 Tablet 2 4 4:50 PM EST 04/23/20 24 Active Vitamin D3 25 MCG (1000 UT) Oral Tablet (Vitamin D3) Take 1 Tablet by mouth in the morning. 100 Tablet 2 4 4:50 PM EST 04/23/20 24 Active Folic Acid 400 MCG Oral TabletIndications: Coronary artery disease involving craig coronary artery of craig heart without angina pectoris Take 1 Tablet [...] stenosis, asymptomatic, right 12/19/2023 Personal history of [place] (myocardial infarction) 0 10/20/2023 Overview (12/12/2023): 10/20/23 [...] with cardiology [facility] Dyslipidemia, goal LDL below [...] disorder 02/15/2012 09/03/2017 Genetic Sleep Disorder Resea [facility] Other*[id number] 06/26/2011 12/08/2015 EXAMINATION OF PARTICIPANT I N CLINICAL TRIAL-Genomics 06/04/2009 08/20/2009 Overview (08/20/2009): Renamed Per Clinical Trials Billing Project. Study Titile: Genomic Markers for Patients with Cardiovascular Disease Project #[id number] PI: Radha Yepez MD Please call [phone] with study related questions GENOMICS CARDIO RESEARCH OTHER*[id number] 06/04/2009 06/13/2016 Overview (08/20/2009): Renamed Per Clinical Trials Billing Project. 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 Background: PMH includes: PVD, HTN, Carotid stenosis, COPD, Parkinson's disease, Hx NSTEMI on 10/20/23 Assessment: Pt sitting at kitchen table at time of visit Denies pain, medical issues, concerns Denies CP, SOB, headache Pt reports that his health seems to be doing better however reports he is very anxious Pt states that he continues to have issues within family dynamics relating to daughter, Tiffanie Pt recently removed her as his POA and reports that she is now "sabotaging" pt elderly who resides in SNF as she remains 's POA- pt states that Tiffanie pulled the CG from pt that pt had in place for extra support Pt son, Cam, present at time of visit and states that he has been visiting pt daily in replacement of Cgs Cam states pt seems to be doing well and encourages pt "Things are going good right now dad" Pt reports his anxiety and stress levels are "through the roof" Pt having visible upper extremity tremors at time of visit Encouraged pt to utilize PRN Klonopin as directed for increased anxiety Pt states "It puts me to sleep, I guess I could use a nap" Pt following with , Page John [facility] for anxiety- last appt 06/20, reviewed treatment plan, encouraged pt to discuss feelings with son, use distraction techniques tv/music Pt does have crisis number Reinforced to call [facility] at [phone] with any red flags, changes in condition, or concerns VS WNL Heart R&R regular Lungs clear bilaterally Free of edema Per pt report: Voiding without difficulty Bowels WNL- continues with miralax Appetite good Taking fluids well Referral placed for [facility] visit in 2-3 weeks to f/u on pt status, anxiety Physical Exam: Physical Exam HENT: Nose: Nose normal. Cardiovascular: Rate and Rhythm: Normal rate and regular rhythm. Pulmonary: Effort: Pulmonary effort is normal. Breath sounds: Normal breath sounds. Abdominal: General: Bowel sounds are normal. There is no distension. Palpations: Abdomen is soft. Musculoskeletal: General: Normal range of motion. Skin: General: Skin is warm and dry. Capillary Refill: Capillary refill takes 2 to 3 seconds. Neurological: General: No focal deficit present. Mental Status: He is alert. Mental status is at baseline. Psychiatric: Mood and Affect: Mood is anxious. Behavior: Behavior normal. Review of Systems: Review of Systems Constitutional: Negative. HENT: Negative. Respiratory: Negative. Negative for cough, chest tightness and shortness of breath. Cardiovascular: Negative. Negative for chest pain and leg swelling. Gastrointestinal: Negative. Genitourinary: Negative. Musculoskeletal: Positive for gait problem. Skin: Negative. Neurological: Positive for tremors. Psychiatric/Behavioral: The patient is nervous/anxious. Care Plan Goal Progress: Patient will maintain manageable anxiety level. (Not Progressing) Start: 01/22/24 Expected End: 03/06/24 Pt will report decrease in physical symptoms of stress. (Not Progressing) Start: 01/22/24 Expected End: 03/06/24 Orders Placed: No orders of the defined types were placed in this encounter. Care Gaps: Care Gaps Care gaps closed this contact: Education;Medications;Plan of Care (POC) (06/26/24 1850) Type of education: Clinical/disease (06/26/24 1710) Type of medication care gap: Medication adherence (06/26/241709) Type of plan of care (POC) care gap: Education and review of exacerbation plan (06/26/241709) documented in this encounter Plan of Treatment Upcoming Encounters Date Type Department Care Team (Late st Contact Info) Description 07/07/2024 11:30 AM EST Scheduled Telephone [facility], [facility] [address] [facility] [place] [address] Teresa Johnson, RDN [address] [facility] [place] [address] 07/08/2024 10:30 AM EST Office Visit Cardiology, [facility] [address] [facility] [place] [address] Marcia Collins CRNP [address] [facility] [place] [address] 07/10/2024 12:30 PM EST Telemedicine Psychology [facility] [address] [facility] [place] [address] Page Mccurdy LCSW [address] [facility] [place] [address] 07/28/2024 11:30 AM EDT Telemedicine Psychology Jose [address] Coleman [address] [place] [address] Page John LCSW [address] [place] [address] 10/10/2024 1:00 PM EDT [facility] [address] [place] [phone] Kaz Robledo MD [address] [place] [address] 10/24/2024 2:00 PM EDT Office Visit Dermatology [facility] [place] [address] [place] [address] Mitchell Mack MD [address] [place] [address] 12/29/2024 2:20 PM EDT Telemedicine Neurology [address] [place] [address] Darron Calvillo MD [address] [facility] [address] Scheduled Procedures Name Priority Associated Diagnoses [...] Documents on File Type Date Recorded Patient Utilities Operator Expl anation POL 04/22/2024 signed on 04/21 * Full Code (Latest Code Status on File) Date Activated Date Inactivated Comments 10/20/2023 10:03 AM 10/26/2023 1:07 AM This order reflects the patients wishes and were consensually agreed upon. Question Answer Comments Discussion of Advance Directives occurred with: Patient Care Teams Crank Hand Relationship Specialty Start Date End Date Kaz Robledo MD [address] [place] [address] PCP - General Family Medicine 03/05/17 documented as of this encounter
--- OUTSIDE RECORDS SUMMARY | 2024-07-17 08:57 | External Medical Summary | Summary of Care ---
Author Name Unknown Organization [facility] Address [address] [place] [address] Phone [phone] Care Team Providers Care Fuel Oil Clerk Name Role Phone Kaz Robledo MD Primary Care Provider +1- [phone] Reason for Visit * Reason Onset Date Comments Nurse Documentation 06/23/2024 Encounter Details Date Type Department Care Team (Late st Contact Info) Description 06/23/2024 Telephone [facility] [address] [place] [address] Kaz Robledo MD [address] [place] [address] Nurse Documentation Allergies Active Allergy Reactions Criticality Noted Date Comments Atorvastatin Muscle pain 12/11/2016 Bee Stings 02/21/1999 Hives,intense itching,edema Gabapentin 10/02/2023 "Couldn't handle it" documented as of this encounter (statuses as of 06/23/2024) Medications CALCIUM 500 MG PO TABS Take [...] Active Diclofenac Sodium 1 % External GelIndications:Ac [place] pain of right shoulder Apply 4 gm [...] Oral Tablet (Zetia)Indication s:Coronary artery disease of [place] artery of [place] heart with stable angina pectoris (HCC),Dyslipidemi a, [...] in the morning. 100 Tablet 3 04/23/20 4:50 PM EST 024 Active Ketoconazole 2 [...] Tablet Delayed ReleaseIndication s:Coronary artery disease involving [place] coronary artery of [place] heart without angina pectoris Take 1 Tablet by mouth in the morning. 100 Tablet 2 04/23/20 24 4:50 PM EST 024 Active Vitamin D3 25 MCG (1000 UT) Oral Tablet (Vitamin D3) Take 1 Tablet by mouth in the morning. 100 Tablet 2 04/23/20 24 4:50 PM EST 024 Active Folic Acid 400 MCG Oral TabletIndications :Coronary artery disease involving [place] coronary artery of [place] heart without angina pectoris Take 1 Tablet [...] as of this encounter (statuses as of 06/23/2024) Active Problems Problem Noted Date Diagnosed Date [...] closely with cardiology Continues cardiac rehab via [facility] rehab program Dyslipidemia, goal LDL below 100 04/15/2009 Overview (04/15/2009): Per Lipid Taxonomy. Hearing loss 07/09/2007 documented as of this encounter (statuses as of 06/23/2024) Resolved Problems Problem Noted Date Diagnosed Date [...] 09/03/2017 Genetic Sleep Disorder Resea [facility] Other*[id number] 06/26/2011 12/08/2015 EXAMINATION OF PARTICIPANT I N CLINICAL TRIAL-Genomics 06/04/2009 08/20/2009 Overview (08/20/2009): Renamed Per Clinical Trials Billing Project. Study Titile: Genomic Markers for Patients with Cardiovascular Disease Project #[id number] PI: Radha Yepez MD Please call [phone] with study related questions GENOMICS CARDIO RESEARCH OTHER*[id number] 06/04/2009 06/13/2016 Overview (08/20/2009): Renamed Per Clinical Trials Billing Project. Study Titile: Genomic Markers for Patients with Cardiovascular Disease Project #[id number] PI: Radha Yepez MD Please call [phone] with study related questions Benign neoplasm of [...] as of this encounter (statuses as of 06/23/2024) Immunizations Name Administration Dates Next Due COVID-19 [...] * Telephone Encounter - Shreya Castellano MED ASSIST - 06/23/2024 2:00 PM EST Received Fax for BFPROVIDERS: Dr. Kaz Robledo ORDER received from [facility] and FAXED documented in this encounter Plan of Treatment Upcoming Encounters Date Type Department Care Team (Late st Contact Info) Description 06/26/2024 2:30 PM EST [facility] Visit [facility], [facility] [address] [place] [address] Aron Schmid, RN [address] [place] [address] 07/01/2024 2:30 PM EST [facility] Visit [facility], [facility] [address] [place] [address] Aron Schmid, GUS [address] [place] [place] [address] 07/07/2024 11:30 AM EST Scheduled Telephone [facility], [facility] [address] [facility] [place] [address] Teresa Johnson RDN [address] [facility] [place] [address] 07/08/2024 10:30 AM EST Office Visit Cardiology, [facility] [address] [place] [address] Marcia Collins CRNP [address] [place] [address] 07/10/2024 12:30 PM EST Telemedicine Psychology [facility] [address] [place] [address] Page Mccurdy, [facility] [address] [place] [address] 07/28/2024 11:30 AM EDT Telemedicine Psychology [address] [place] [address] Page John ARTS AND CRAFTS TEACHER [address] [place] [address] 10/10/2024 1:00 PM EDT Office Visit [facility] [address] [place] [address] Kaz Robledo MD [address] [place] [address] 10/24/2024 2:00 PM EDT Office Visit Dermatology [facility] [address] [place] [address] Mitchell Mack MD [address] [place] [address] 12/29/2024 2:20 PM EDT Telemedicine Neurology [address] [place] [address] Darron Calvillo MD [address] [facility] [place] [address] Scheduled Procedures Name Priority Associated Diagnoses [...] Documents on File Type Date Recorded Patient Digital Camera Technician Deisi LIANG 04/22/2024 signed on 04/21 * Full Code (Latest Code Status on File) Date Activated Date Inactivated Comments 10/20/2023 10:03 AM 10/26/2023 1:07 AM This order reflects the patients wishes and were consensually agreed upon. Question Answer Comments Discussion of Advance Directives occurred with: Patient Care Teams Fuel Oil Clerk Relationship Specialty Start Date End Date Kaz Robledo MD [address] [place] [address] PCP - General Family Medicine 03/05/17 documented as of this encounter
--- OUTSIDE RECORDS SUMMARY | 2024-07-17 08:57 | External Medical Summary | Summary of Care ---
Author Name Unknown Organization [facility] Address [address] [place] [address] Phone [phone] Care Team Providers Care Veneer Drier Feeder Name Role Phone Kaz Robledo MD Primary Care Provider [phone]- [phone] Reason for Visit * Reason Onset Date Comments Nurse Documentation 06/26/2024 Encounter Details Date Type Department Care Team (Late st Contact Info) Description 06/26/2024 Telephone [facility] [address] [place] [address] Kaz Robledo MD [address] [place] [address] Nurse Documentation Allergies Active Allergy Reactions Criticality Noted Date Comments Atorvastatin Muscle pain 12/11/2016 Bee Stings 02/21/1999 Hives,intense itching,edema Gabapentin 10/02/2023 "Couldn't handle it" documented as of this encounter (statuses as of 06/26/2024) Medications CALCIUM 500 MG PO TABS Take [...] Oral Tablet (Zetia)Indications :Coronary artery disease of [place] artery of [place] heart with stable angina pectoris (HCC),Dyslipidemia , [...] Tablet Delayed ReleaseIndications :Coronary artery disease involving [place] coronary artery of [place] heart without angina pectoris Take 1 Tablet by mouth in the morning. 100 Tablet 2 4 4:50 PM EST 04/23/20 24 Active Vitamin D3 25 MCG (1000 UT) Oral Tablet (Vitamin D3) Take 1 Tablet by mouth in the morning. 100 Tablet 2 4 4:50 PM EST 04/23/20 24 Active Folic Acid 400 MCG Oral TabletIndications: Coronary artery disease involving [place] coronary artery of [place] heart without angina pectoris Take 1 Tablet [...] as of this encounter (statuses as of 06/26/2024) Active Problems Problem Noted Date Diagnosed Date Heart failure 06/16/2024 Paroxysmal atrial flutter 06/16/2024 Polyneuropathy in diseases classified elsewhere 06/16/2024 Depression, unspecified 06/16/2024 Orthostatic hypotension 04/10/2024 Carotid stenosis, asymptomatic, right 12/19/2023 Personal history of MS (myocardial infarction) 0 10/20/2023 Overview (12/12/2023): 10/20/23 [...] with cardiology Continues cardiac rehab via [facility] rehab program Dyslipidemia, goal LDL below 100 04/15/2009 Overview (04/15/2009): Per Lipid Taxonomy. Hearing loss 07/09/2007 documented as of this encounter (statuses as of 06/26/2024) Resolved Problems Problem Noted Date Diagnosed Date [...] 09/03/2017 Genetic Sleep Disorder Resea [facility] Other*[id number] 06/26/2011 12/08/2015 EXAMINATION OF PARTICIPANT I N CLINICAL TRIAL-Genomics 06/04/2009 08/20/2009 Overview (08/20/2009): Renamed Per Clinical Trials Billing Project. Study Titile: Genomic Markers for Patients with Cardiovascular Disease Project #[id number] PI: Radha Yepez MD Please call [phone] with study related questions GENOMICS CARDIO RESEARCH OTHER*[id number] 06/04/2009 06/13/2016 Overview (08/20/2009): Renamed Per Clinical Trials Billing Project. Study Titile: Genomic Markers for Patients with Cardiovascular Disease Project #[id number] PI: Radha Yepez MD Please call [phone] with study related questions Benign neoplasm of [...] as of this encounter (statuses as of 06/26/2024) Immunizations Name Administration Dates Next Due COVID-19 [...] Encounter - Shreya Castellano MED ASSIST - 06/26/2024 1:38 PM EST Received Fax for BFPROVIDERS: Dr. aKz Robledo ORDER received from [facility] and FAXED documented in this encounter Plan of Treatment Upcoming Encounters Date Type Department Care Team (Late st Contact Info) Description 07/07/2024 11:30 AM EST Scheduled Telephone [facility] [address] [place] [facility] [place] [address] Teresa Johnson RDN [address] [place] [address] 07/08/2024 10:30 AM EST Office Visit Cardiology, [facility] [address] [facility] [place] [address] Marcia Collins CRNP [address] [facility] [place] [address] 07/10/2024 12:30 PM EST Telemedicine Psychology [facility] [address] [facility] [place] [address] Page Mccurdy LCSW [address] [place] [address] 07/28/2024 11:30 AM EDT Telemedicine Psychology Jose G Coleman [address] [place] [address] Page John LCSW [address] [place] [address] 10/10/2024 1:00 PM EDT Office Visit [facility] [address] [place] [address] Kaz Robledo MD [address], [place] [id number] 10/24/2024 2:00 PM EDT Office Visit Dermatology [facility] [address] [facility] [place] [address] Mitchell Mack MD [address] [facility] [place] [address] 12/29/2024 2:20 PM EDT Telemedicine Neurology [address] [place] [address] Darron Calvillo MD [address] [place] [address] Scheduled Procedures Name Priority Associated Diagnoses [...] Documents on File Type Date Recorded Patient Aeroplane Pilot Expl anation POL 04/22/2024 signed on 04/21 * Full Code (Latest Code Status on File) Date Activated Date Inactivated Comments 10/20/2023 10:03 AM 10/26/2023 1:07 AM This order reflects the patients wishes and were consensually agreed upon. Question Answer Comments Discussion of Advance Directives occurred with: Patient Care Teams Veneer Drier Feeder Relationship Specialty Start Date End Date Kaz Robledo MD [address] [place] [address] PCP - General Family Medicine 03/05/17 documented as of this encounter
--- OUTSIDE RECORDS SUMMARY | 2024-07-17 08:58 | External Medical Summary | Summary of Care ---
Author Name Unknown Organization [facility] Address [address] [place] [address] Phone [phone] Care Team Providers Care Chrome Plater Helper Name Role Phone Kaz Robledo MD Primary Care Provider +1- [phone] Reason for Visit * Reason Onset Date Comments FYI 06/10/2024 Encounter Details Date Type Department Care Team (Late st Contact Info) Description 06/10/2024 Telephone [facility] [address] [place] [address] Kaz Robledo MD [address] [place] [address] FY Allergies Active Allergy Reactions Criticality Noted Date Comments Atorvastatin Muscle pain 12/11/2016 Bee Stings 02/21/1999 Hives,intense itching,edema Gabapentin 10/02/2023 "Couldn't handle it" documented as of this encounter (statuses as of 06/11/2024) Medications CALCIUM 500 MG PO TABS Take [...] dose and a half daily, Reported on 06/10/2024 Melatonin 3 MG Oral Tablet Disintegrating Take [...] Oral Tablet (Zetia)Indications :Coronary artery disease of [place] artery of [place] heart with stable angina pectoris (HCC),Dyslipidemia , [...] Tablet Delayed ReleaseIndications :Coronary artery disease involving [place] coronary artery [...] MCG Oral TabletIndications: Coronary artery disease involving [place] coronary artery of [...] as of this encounter (statuses as of 06/11/2024) Active Problems Problem Noted Date Diagnosed Date [...] 05/25/2023 Anxiety 08/03/2022 Other atherosclerosis of [place] arteries of extremities, bilateral legs 07/27/2022 Prediabetes [...] closely with cardiology [facility] Dyslipidemia, goal LDL below 100 04/15/2009 Overview (04/15/2009): Per Lipid Taxonomy. Hearing loss 07/09/2007 documented as of this encounter (statuses as of 06/11/2024) Resolved Problems Problem Noted Date Diagnosed Date [...] disorder 02/15/2012 09/03/2017 Genetic Sleep Disorder Resea [facility] Other*[id number] 06/26/2011 12/08/2015 EXAMINATION OF PARTICIPANT I N CLINICAL TRIAL-Genomics 06/04/2009 08/20/2009 Overview (08/20/2009): Renamed Per Clinical Trials Billing Project. Study Titile: Genomic Markers for Patients with Cardiovascular Disease Project #[id number] PI: Radha Yepez MD Please call [phone] with study related questions GENOMICS CARDIO RESEARCH OTHER*[id number] 06/04/2009 06/13/2016 Overview (08/20/2009): Renamed Per Clinical Trials Billing Project. Study Titile: Genomic Markers for Patients with Cardiovascular Disease Project #[id number] PI: Radha Yepez MD Please call [phone] with study related questions Benign neoplasm of [...] as of this encounter (statuses as of 06/11/2024) Immunizations Name Administration Dates Next Due COVID-19 [...] the money to buy more. Never true 06/03/19 25 Within the past 12 months, t he food you bought just didn't last and you didn't have money to get more. Never true 06/03/2024 Childcare Answer Date Recorded Do you feel overwhelmed with taking care of a child, family member or friend? No 06/03/2024 Does your family need help f inding childcare? (Household - for ages 0-17 years) Not on file 06/03/2024 Clothing Answer Date Recorded Have you been unable to get clothing when it was really needed? No 06/03/2024 Is your family able to get c lothes or diapers when needed? (Household - for ages 0-17 years) Not on file 06/03/2024 Personal Safety Answer Date Recorded Do you feel unsafe or have concerns for your saf ety? No 06/03/2024 Do you have concerns for you r family's safety? (Household - for ages 0-17 years) Not on file 06/03/2024 Utilities Answer Date Recorded Do you have trouble paying y our heating, water, or electric bill? No 06/03/2024 Is your family able to pay t he heat, water, or electric bill? (Household - for ages 0-17 years) Not on file 06/03/2024 Does your family have access to good internet? (Household - for ages 0-17 years) Not on file 06/03/2024 Employment Status Answer Date Recorded Are you unemployed or without regular income? No 06/03/2024 Does the household have a re gular source of income? (Household - for ages 0-17 years) Not on file 06/03/2024 Social Connections Answer Date Recorded How often do you feel lonely or isolated from th ose around you? Rarely 06/03/2024 Financial Resource Strain Answer Date R ecorded Do you have any trouble payi ng for your medications, or do you think you might in the future? No 06/03/2024 Does your family have troubl e paying for medicine? (Household - for ages 0-17 years) Not on file 06/03/2024 Transportation Needs Answer Date Record ed READ ONLY Do you have troubl e getting a ride to medical visits or work? Never True 06/03/2024 Does your family have a hard time getting a ride to doctors visits? (Household - for ages 0-17 years) Not on file 06/03/2024 Has lack of transportation k ept you from medical appointments, meetings, work, or from getting things needed for daily living? Check all that apply. No 06/03/2024 Do you (or your family) have trouble finding or paying for a ride (transportation)? (Household - for ages 0-17 years) Not on file 06/03/2024 Housing Stability Answer Date Recorded Do you currently live in a s helter or have no steady place to sleep at night? No 06/03/2024 READ ONLY Do you think you a re at risk of becoming homeless? No 06/03/2024 Does your family worry about paying for your home or becoming homeless? (Household - for ages 0-17 years) Not on file 0 06/03/2024 Are you homeless or worried that you might be in the future? No 06/03/2024 Are you (or your family) shyla eless [...] ages 0-17 years) Not on file 06/03/2024 Sex and Gender Information Value Date Recorded [...] Telephone Encounter - Kaz Robledo MD - 06/10/2024 7:16 PM EST noted * Telephone Encounter - Alis Santa LPN - 06/10/2024 11:58 AM EST Spoke with Silver from [facility] Home health. They are sending over orders for this pt. Pt was back in the hospital for a heart attack. The are going to continue seeing the Pt. Silver wanted the provider toknow that he has a bruise on his right dorsal foot. Big toe is yellowish color and 2nd toe is purple. The bruise is healing and pt can move his toes. This is just an FYI * Telephone Encounter - Rita Ann OSA - 06/10/2024 11:52 AM EST [facility] nurse silver is calling about pt asking to speak to one of the nurses for verbal orders documented in this encounter Plan of Treatment Upcoming Encounters Date Type Department Care Team (Late st Contact Info) Description 06/23/2024 3:00 PM EST Office Visit Neurology [facility] [address] [facility] [place] [address] Darron Calvillo MD [address] [place] [address] 06/26/2024 2:30 PM EST [facility] [address] [place] [address] Aron Schmid RN [address] [place] [address] 07/01/2024 2:30 PM EST [facility] [address] [place] [address] Aron Schmid, RN [address] [facility] [place] [address] 07/02/2024 11:00 AM EST Telemedicine Psychology [facility] [address] [place] [address] Tiff Aixa Champagne, FILM DEVELOPER [address] [place] [address] 07/07/2024 11:30 AM EST Scheduled Telephone [facility], [facility] [address] [place] [address] Teresa Johnson, RDN [address] [place] [address] 07/08/2024 10:30 AM EST Office Visit Cardiology, [facility] [address] [place] [address] Marcia Collins CRNP [address] [place] [address] 07/28/2024 11:30 AM EDT Telemedicine Psychology Jose G Coelman [address] [place] [address] Page John LCSW [address] [place] [address] 10/10/2024 1:00 PM EDT Office Visit [facility] [address] [place] [id number] Kaz Robledo MD [address] [place] [address] 10/24/2024 2:00 PM EDT Office Visit Dermatology [facility] [address] [place], [place] [id number] Mitchell Mack MD [address] [place] [address] Scheduled Procedures Name Priority Associated Diagnoses Date/Ti [...] on File Type Date Recorded Patient Rn Telehealth Deisi LIANG 04/22/2024 signed on 04/21 * Full Code (Latest Code Status on File) Date Activated Date Inactivated Comments 10/20/2023 10:03 AM 10/26/2023 1:07 AM This order reflects the patients wishes and were consensually agreed upon. Question Answer Comments Discussion of Advance Directives occurred with: Patient Care Teams Chrome Plater Helper Relationship Specialty Start Date End Date Kaz Robledo MD [address] [place] [address] PCP - General Family Medicine 03/05/17 documented as of this encounter
--- OUTSIDE RECORDS SUMMARY | 2024-07-17 08:58 | External Medical Summary | Summary of Care ---
Author Name Unknown Organization [facility] Address [address] [place] [address] Phone [phone] Care Team Providers Care Chairman Ceo Name Role Phone Kaz Robledo MD Primary Care Provider [phone]- [phone] Reason for Visit * Reason Comments Follow Up Patient is here for a 5 month follow up. Patient reports he is generally feeling okay, has had a few ER visits within the past month or so. Patient would like to discuss parkinson's medication, it seems like it isn't working. Patient has been having some constipation issues but has missed a day or two of miralax. 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 classified elsewhere (HCC); Adjustment disorder with mixed anxiety and depressed mood Allergies Active Allergy Reactions Criticality Noted Date Comments Atorvastatin Muscle pain 12/11/2016 Bee Stings 02/21/1999 Hives,intense itching,edema Gabapentin 10/02/2023 "Couldn't handle it" documented as of this encounter (statuses as of 06/17/2024) Medications CALCIUM 500 MG PO TABS Take [...] Oral Tablet (Zetia)Indications :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 100 Tablet 2 4 4:50 PM EST 04/23/20 24 Active Vitamin D3 25 MCG (1000 UT) Oral Tablet (Vitamin D3) Take 1 Tablet by mouth in the morning. 100 Tablet 2 4 4:50 PM EST 04/23/20 24 Active Folic Acid 400 MCG Oral TabletIndications: Coronary artery disease involving washoe coronary artery of washoe heart without angina pectoris Take 1 Tablet [...] as of this encounter (statuses as of 06/17/2024) Active Problems Problem Noted Date Diagnosed Date [...] as of this encounter (statuses as of 06/17/2024) Resolved Problems Problem Noted Date Diagnosed Date [...] disorder 02/15/2012 09/03/2017 Genetic Sleep Disorder Resea [facility] Other*[id number] 06/26/2011 12/08/2015 EXAMINATION OF PARTICIPANT I N CLINICAL TRIAL-Genomics 06/04/2009 08/20/2009 Overview (08/20/2009): Renamed Per Clinical Trials Billing Project. Study Titile: Genomic Markers for Patients with Cardiovascular Disease Project #[id number] PI: Radha Yepez MD Please call [phone] with study related questions GENOMICS CARDIO RESEARCH OTHER*[id number] 06/04/2009 06/13/2016 Overview (08/20/2009): Renamed Per Clinical Trials Billing Project. Study Titile: Genomic Markers for Patients with Cardiovascular Disease Project #[id number] PI: Radha Yepez MD Please call [phone] with study related questions Benign neoplasm of [...] as of this encounter (statuses as of 06/17/2024) Immunizations Name Administration Dates Next Due COVID-19 mRNA, LNP-s, No Pre serve, 2-Dose Series (Moderna) 07/02/2020,06/03/2020 COVID-19, mRNA, LNP-s, PF, B ooster, 100mcg/0.5mg (Moderna) 10/06/2021,03/02/2021 Covid-19, Mrna, Lnp-s, Pf, B ivalent, 30 Mcg, IM, 12 yrs and above (zulily) 02/15/2022 H1N1 2009 Influenza, IM 05/10/2009 Pneumococcal [...] No 06/03/2024 Does the household have a mclaren flintr source of income? (Household - for ages [...] money to get more. Never true 06/03/2024 Do you need food for this week? No 06/03/2024 Sex and Gender Information Value Date [...] Sign Reading Time Taken Comments Blood Pressure 166/84 06/02/2024 2:52 PM EST Pulse 64 06/02/2024 2:52 PM EST Temperature 36.8 C (98.2 F) 06/02/2024 2:52 PM ES T Respiratory Rate 16 06/02/2024 2:52 PM EST Oxygen Saturation 97% 06/02/2024 2:52 PM EST Inhaled Oxygen Concentration - - Weight 93.8 kg (206 lb 11.2 oz) 06/02/2024 2:52 PM EST Height 177.8 cm (5' 10") 06/02/2024 2:52 PM EST Body Mass Index 29.66 06/02/2024 2:52 PM EST documented in this [...] Nba Wynn RN documented in this encounter Patient Instructions * Patient Instructions* Shreya Castellano, MED ASSIST - 06/02/2024 3:05 PM EST Patient Instructions - Fall Prevention (This education [...] pathway between the bedroom and the bathroom Wizeline Patient Education Copyright 2008 - 2010 [employer]ine[employer] except where otherwise noted Preventing Falls: Exercises [...] 10 times. Repeat this throughout the day. Jacinto Patient Education Copyright 2009 - 2010 Jacinto except where otherwise noted. Preventing Falls: Moving [...] that mean climbing, even on a stepstool. Jacinto Patient Education Copyright 2009 - 2010 Jacinto except where otherwise noted. Treating Urinary Incontinence [...] Progress Notes * Kaz Robledo MD - 06/02/2024 3:25 PM EST Subjective: Landen Camacho is a 79 year old male here today for Chief Complaint Patient presents with Follow Up Patient is here for a 5 month follow up. Patient reports he is generally feeling okay, has had a few ER visits within the past month or so. Patient would like to discuss parkinson's medication, it seems like it isn't working. Patient has been having some constipation issues but has missed a day or two of miralax. Pt presents for routine 5 month return. Has had some stressors with now in dementia unit and living alone. Relationship strained with daughter. Anxiety and depression continue to be issues. He is wondering if a change is needed with Parkinson's meds as he has increased tremor at times. Anxiety can make that worse as well. Breathing is stable. Past Medical History: Diagnosis Date Allergic disorder bee sting Basal cell cancer 11/04/2013 Benign neoplasm of colon 05/11/2008 adenomatous/repeat colonoscopy in 3 yrs Carotid stenosis, non-symptomatic Carotid stenosis, non-symptomatic left side totally obstructed CHR ISCHEMIC HRT DIS NEC 07/08/2009 total occlusion of the proximal LAD with ghfo-ly-iaran collaterals with 50% diffuse mid RCA Depressive disorder, not elsewhere classified Dyslipidemia, goal to be determined Major depressive disorder with single episode, in full remission (HCC) 12/23/2018 Other acute sinusitis Subdural hemorrhage (HCC) Past Surgical History: Procedure Laterality Date CATARACT SURGERY,COMPLEX 03/06/12 CATARACT SURGERY,COMPLEX 04/16/12 CATHETERIZE LEFT HEART THRU SKIN 06/04/09 LEFT HEART CATH, PERCUTANEOUS performed by MARTY ROWELL at [facility] COLONOSCOPY 01/07 tubular adenoma -repeat [id number] COLONOSCOPY W/ BIOPSY (RECTUM) 05/11/08 repeat in 3 yrs/adenomatous COLONOSCOPY, DIAGNOSTIC (RECTUM) 09/13/2015 adenomatous polyp, diverticulosis, repeat 1 yr/COLONOSCOPY FLEXIBLE PROXIMAL DIAGNOSTIC performed by Ariel Johnson MD at ENDOS[facility] COLONOSCOPY, DIAGNOSTIC (RECTUM) 10/15/2017 adenomatous & hyperplastic polyps, diverticulosis, fair prep, repeat 1 yr/COLONOSCOPY FLEXIBLE PROXIMAL DIAGNOSTIC performed by Gema Rodas MD at ENDOS[facility] COLONOSCOPY, DIAGNOSTIC (RECTUM) 03/20/2019 adenomatous polyp, diverticulosis, fair prep, repeat 1 yr/COLONOSCOPY FLEXIBLE PROXIMAL DIAGNOSTIC performed by Gema Rodas MD at ENDOSCOPY [facility] CORONARY ANGIOGRAPHY W/LEFT HEART CATH N/A 10/22/2023 CORONARY ANGIOGRAPHY W/LEFT HEART CATH performed by Silvino Drake MD at [facility] KNEE ARTHROSCOPY/MENISCECTOMY left OTHER 02/06 perirectal abscess [...] a day (Patient not taking: Reported on 06/10/2024) 45 g 0 Multivitamin Adult Oral Tablet [...] as needed for Anxiety. 60 Tablet 0 No current facility-administered medications for this visit. Objective: BP 166/84 | Pulse 64 | Temp 98.2 F (36.8 C) (Tympanic) | Resp 16 | Ht 5' 10" (1.778 m) | Wt 206 lb 11.2 oz (93.8 kg) | SpO2 97% | BMI 29.66 kg/m | BSA 2.15 m GEN: NAD HEENT: Benign NECK: Supple with no LAD, TM, JVD CHEST: CTA B CV: RRR ABD: Soft, NT/ND, No HSM, NABS EXT: No c,c,e Assessment and Plan: Heart failure, unspecified HF chronicity, unspecified heart failure type (HCC) (Primary) Risk and functional assessment Chronic obstructive pulmonary disease, unspecified COPD type (HCC) Paroxysmal atrial flutter (HCC) Polyneuropathy in diseases classified elsewhere (HCC) Adjustment disorder with mixed anxiety and depressed mood Continue all current meds and speciality follow up. Pt will discuss concerns about meds and tremor with neurology. He is going to change POA to son (although son is out of the area). Follow Up: Return in about 4 months (around 09/30/2024) for recheck. | For: recheck 36 min with pt and chart review. Kaz Robledo MD documented in this encounter Nursing Notes * Shreya Castellano MED ASSIST - 06/02/2024 3:05 PM EST The patient has been properly identified by confirmation of name and date of . Chief Complaint Patient presents with Follow Up Patient is here for a 5 month follow up. Patient reports he is generally feeling okay, has had a few ER visits within the past month or so. Patient would like to discuss parkinson's medication, it seems like it isn't working. Patient has been having some constipation issues but has missed a day or two of miralax. documented in this encounter Plan of Treatment Upcoming Encounters Date Type Department Care Team (Late st Contact Info) Description 06/19/2024 2:30 PM EST Home Visit [facility] [address] [place] [address] Trang Sosa, [facility] Ict Support Technicians [address] [place] [address] 06/20/2024 9:30 AM EST Telemedicine Psychology [place] G Coleman [address] [place] [address] Page John LCSW [address] [place] [address] 06/23/2024 3:00 PM EST Office Visit Neurology [facility] [address] [place] [address] Darron Calvillo MD [address], [place] [id number] 06/26/2024 2:30 PM EST [facility] Visit [facility] [address] [facility] [place] [address] Aron Schmid RN 132 [facility] [place] [address] 07/01/2024 2:30 PM EST Home Visit [facility], [facility] [address] [facility] [place] [address] Aron Schmid, GUS [address] [facility] [place] [address] 07/07/2024 11:30 AM EST Scheduled Telephone [facility], [facility] [address] [facility] [address] Teresa Johnson RDN [address] [place] [address] 07/08/2024 10:30 AM EST Office Visit Cardiology, [facility] [address] [place] [address] Marcia Collins CRNP [address] [place] [address] 07/28/2024 11:30 AM EDT Telemedicine Psychology [address] [place] [address] Page John LCSW [address] [place] [address] 10/10/2024 1:00 PM EDT Office Visit [facility] [address] [place] [address] Kaz Robledo MD [address] [place] [address] 10/24/2024 2:00 PM EDT Office Visit Dermatology [facility] [address] [place] [address] Mitchell Mack MD [address] [place] [address] Scheduled Procedures Name Priority Associated Diagnoses Date/Ti [...] Coronary atherosclerosis of unspecified type of vessel, washoe or graft HTN, goal below 140/90 Unspecified essential hypertension Parkinson's disease, unspecified whether dyskinesia present, unspecified whether manifestations fluctuate (HCC) PVD (peripheral vascular disease) (HCC) Peripheral vascular disease, unspecified Adjustment disorder with mixed anxiety and depressed mood Advanced care planning/counseling discussion Other specified counseling Heart failure, unspecified HF chronicity, unspecified heart failure type (HCC)- Primary Risk and functional assessment Screening for unspecified condition Chronic obstructive pulmonary disease, unspecified COPD type (HCC) Paroxysmal atrial flutter (HCC) Atrial flutter Polyneuropathy in diseases classified elsewhere (HCC) Adjustment disorder with mixed anxiety and depressed mood documented in this encounter Advance Directives Documents on File Type Date Recorded Patient Warehouse Material Handler Expl anation AZUL 04/22/2024 signed on 04/21 * Full Code (Latest Code Status on File) Date Activated Date Inactivated Comments 10/20/2023 10:03 AM 10/26/2023 1:07 AM This order reflects the patients wishes and were consensually agreed upon. Question Answer Comments Discussion of Advance Directives occurred with: Patient Care Teams Chairman Ceo Relationship Specialty Start Date End Date Kaz Robledo MD [address] [address] PCP - General Family Medicine 03/05/17 documented as of this encounter
--- OUTSIDE RECORDS SUMMARY | 2024-07-17 08:58 | External Medical Summary | Summary of Care ---
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 100 Tablet 2 4 4:50 PM EST 04/23/20 24 Active Vitamin D3 25 MCG (1000 UT) Oral Tablet (Vitamin D3) Take 1 Tablet by mouth in the morning. 100 Tablet 2 4 4:50 PM EST 04/23/20 24 Active Folic Acid 400 MCG Oral TabletIndications: Coronary artery disease involving paiute-shoshone coronary artery of paiute-shoshone heart without angina pectoris Take 1 Tablet [...] stenosis, asymptomatic, right 12/19/2023 Personal history of NV (myocardial infarction) 0 10/20/2023 Overview (12/12/2023): 10/20/23 [...] closely with cardiology [facility] Dyslipidemia, goal LDL below [...] disorder 02/15/2012 09/03/2017 Genetic Sleep Disorder Resea [facility] Other*[id number] 06/26/2011 12/08/2015 EXAMINATION OF PARTICIPANT I N CLINICAL TRIAL-Genomics 06/04/2009 08/20/2009 Overview (08/20/2009): Renamed Per Clinical Trials Billing Project. Study Titile: Genomic Markers for Patients with Cardiovascular Disease Project #[id number] PI: Radha Yepez MD Please call [phone] with study related questions GENOMICS CARDIO RESEARCH OTHER*[id number] 06/04/2009 06/13/2016 Overview (08/20/2009): Renamed Per Clinical Trials Billing Project. Study Titile: Genomic Markers for Patients with Cardiovascular Disease Project #[id number] PI: Radha Yepez MD Please call [phone] with study related questions Benign neoplasm of [...] 30 Mcg, IM, 12 yrs and above ([employer]) 02/15/2022 H1N1 2009 Influenza, IM 05/10/2009 Pneumococcal [...] Nba Estes RN documented in this encounter Progress Notes * Trang Sosa [facility] Enterprise Resource Planning Consultant - 06/19/2024 4:15 PM EST Telemedicine visit: No Community [facility] Enterprise Resource Planning Consultant (CHERRI) documentation: CHW saw pt for return home visit this date. Pt's grand daughter, Kassandra and his Decal Decorator Joceline PAVON were present during visit. CHW completed medication review, vital signs, SDOH and CHW survey. No new issues or concerns at this time per pt. Medication review was completed with Joceline, as she completes pt's medication boxes bi weekly. No issues or concerns noted. documented in this encounter Plan of Treatment Upcoming Encounters Date Type Department Care Team (Late st Contact Info) Description 06/20/2024 9:30 AM EST Telemedicine Psychology Jose G Coleman [address] [place] [phone] Page John LCSW [address] [place] [phone] 06/23/2024 3:00 PM EST Office Visit Neurology [facility] [place] [address] [place] [address] Darron Calvillo MD [address] [facility] [place] [address] 06/26/2024 2:30 PM EST Home Visit [facility] [address] [facility] [place] [address] Aron Schmid, GUS [address] [place] [address] 07/01/2024 2:30 PM EST Home Visit [facility], [facility] [address] [facility] [place] [address] Aron Schmid, GUS 132 [facility] [place] [address] 07/07/2024 11:30 AM EST Scheduled Telephone [facility], [facility] [address] [facility] [place] [address] Teresa Johnson, RDN [address] [place] [place] [address] 07/08/2024 10:30 AM EST Office Visit Cardiology, [facility] [address] [facility] [place] [address] Marcia Collins CRNP 132 [facility] [place] [address] 07/28/2024 11:30 AM EDT Telemedicine Psychology [place] [address] [place] [address] Page John LCSW 9 [place] [address] 10/10/2024 1:00 PM EDT Office Visit Family [facility] [address] [place] [phone] Kaz Robledo MD [address] [place] [address] 10/24/2024 2:00 PM EDT Office Visit Dermatology [facility] [address] [place] [address] Mitchell Mack MD [address] [place] [address] Scheduled Procedures Name Priority Associated Diagnoses Date/Ti [...] Documents on File Type Date Recorded Patient Crystallizer Operator Expl anation POLST 04/22/2024 signed on 04/21 * Full Code (Latest Code Status on File) Date Activated Date Inactivated Comments 10/20/2023 10:03 AM 10/26/2023 1:07 AM This order reflects the patients wishes and were consensually agreed upon. Question Answer Comments Discussion of Advance Directives occurred with: Patient Care Teams Trademark Affixer Relationship Specialty Start Date End Date Kaz Robledo MD [address] [place] [address] PCP - General Family Medicine 03/05/17 documented as of this encounter
--- OUTSIDE RECORDS SUMMARY | 2024-07-17 08:58 | External Medical Summary | Summary of Care ---
Author Name Unknown Organization [facility] Address [address] [place] [address] Phone [phone] Care Team Providers Care Image Archivist Name Role Phone Kaz Robledo MD Primary Care Provider +1- [phone] Reason for Visit * Reason Onset Date Comments [facility]: Maintenance 06/10/2024 Encounter Details Date Type Department Care Team (Late st Contact Info) Description 06/10/2024 Telephone [facility], [facility] [address] [place] [address] Aron Schmid, RN [address] [place] [address] [facility]: Maintenance Allergies Active Allergy Reactions Criticality Noted Date Comments Atorvastatin Muscle pain 12/11/2016 Bee Stings 02/21/1999 Hives,intense itching,edema Gabapentin 10/02/2023 "Couldn't handle it" documented as of this encounter (statuses as of 06/13/2024) Medications CALCIUM 500 MG PO TABS Take [...] Oral Tablet (Zetia)Indications :Coronary artery disease of [place] artery of [place] heart with stable angina pectoris (HCC),Dyslipidemia , [...] Tablet Delayed ReleaseIndications :Coronary artery disease involving [place] coronary artery of [place] heart without angina pectoris Take 1 Tablet by mouth in the morning. 100 Tablet 2 4 4:50 PM EST 04/23/20 24 Active Vitamin D3 25 MCG (1000 UT) Oral Tablet (Vitamin D3) Take 1 Tablet by mouth in the morning. 100 Tablet 2 4 4:50 PM EST 04/23/20 24 Active Folic Acid 400 MCG Oral TabletIndications: Coronary artery disease involving [place] coronary artery of [place] heart without angina pectoris Take 1 Tablet [...] 100 Tablet 1 5 2:44 PM EST 12/18/20 24 Active Probiotic Daily Oral Capsule Take 1 Capsule by mouth in the morning. Active clonazePAM 0.5 MG Oral Tablet (KlonoPIN)Indicati ons:Adjustment disorder with mixed anxiety and depressed mood Take 1 Tablet by mouth 2 times a day as needed for Anxiety. 60 Tablet 05/23/19 25 Active documented as of this encounter (statuses as of 06/13/2024) Active Problems Problem Noted Date Diagnosed Date [...] as of this encounter (statuses as of 06/13/2024) Resolved Problems Problem Noted Date Diagnosed Date [...] disorder 02/15/2012 09/03/2017 Genetic Sleep Disorder Resea [facility] Other*[id number] 06/26/2011 12/08/2015 EXAMINATION OF PARTICIPANT I N CLINICAL TRIAL-Genomics 06/04/2009 08/20/2009 Overview (08/20/2009): Renamed Per Clinical Trials Billing Project. Study Titile: Genomic Markers for Patients with Cardiovascular Disease Project #[id number] PI: Radha Yepez MD Please call [phone] with study related questions GENOMICS CARDIO RESEARCH OTHER*[id number] 06/04/2009 06/13/2016 Overview (08/20/2009): Renamed Per Clinical Trials Billing Project. Study Titile: Genomic Markers for Patients with Cardiovascular Disease Project #[id number] PI: Radha Yepez MD Please call [phone] with study related questions Benign neoplasm of [...] as of this encounter (statuses as of 06/13/2024) Immunizations Name Administration Dates Next Due COVID-19 [...] Telephone Encounter - Lexi Huffman OSA - 06/13/2024 9:14 AM EST LMOM. Letter sent. 06/13/2024 * Telephone Encounter - Lexi Huffman OSA - 06/11/2024 10:04 AM EST LMOM to schedule Hospital Discharge. 06/11/2024 * Telephone Encounter - Shreya Castellano MED ASSIST - 06/10/2024 5:18 PM EST Please assist with scheduling a hospital follow up appointment * Telephone Encounter - Aron Schmid RN - 06/10/2024 2:37 PM EST Juan Jose, Pt admitted to [facility] 06/05-06/07 for NSTEMI Pt recommended to f/u with PCP, Cards Sees Cards 07/08 for hospital f/u No hospital f/u scheduled with Dr Robledo at this point Pt is available for f/u any day or time Denies CP, SOB, BROWN at time of visit HR 60 bpm and regular BP 144/80 Pt son and POA is in town and staying with pt, from [place] until 06/18 and would like to accompany pt to appt if appt can be facilitated before 06/18 Thanks! documented in this encounter Plan of Treatment Upcoming Encounters Date Type Department Care Team (Late st Contact Info) Description 06/19/2024 2:30 PM EST Home Visit [facility] [address] [facility] [place] [address] Trang Sosa, [facility] Bull Riveter [address] [place] [address] 06/23/2024 3:00 PM EST Office Visit Neurology [facility] [address] [place] [address] Darron Calvillo MD [address] [place] [address] 06/26/2024 2:30 PM EST [facility] Visit [facility], [facility] 132 [facility] [place] [address] Aron Schmid, GUS 132 [facility] [place] [address] 07/01/2024 2:30 PM EST Home Visit [facility], [facility] [address] [facility] [place] [address] Aron Schmid RN 132 [facility] [place] [address] 07/02/2024 11:00 AM EST Telemedicine Psychology Jose G Coleman [address] [place] [address] Aixa Matthew, ADIN [address] [place] [address] 07/07/2024 11:30 AM EST Scheduled Telephone [facility], [facility] [address] [facility] [place] [address] Teresa Johnson, TRAVISN [address] [facility] [place] [address] 07/08/2024 10:30 AM EST Office Visit Cardiology, [facility] [address] [facility] [place] [address] Marcia Collins CRNP [address] [place] [address] 07/28/2024 11:30 AM EDT Telemedicine Psychology Jose G Coleman [address] [place] [address] Page John LCSW [address] [place] [address] 10/10/2024 1:00 PM EDT Office Visit Family [facility] [address] [place] [address] Kaz Robledo MD [address] [place] [address] 10/24/2024 2:00 PM EDT Office Visit Dermatology [facility] [address] [place] [address] Mitchell Mack MD [address] [place] [address] Scheduled Procedures Name Priority Associated Diagnoses Date/Ti [...] Documents on File Type Date Recorded Patient It Risk Analyst Expl anation AZUL 04/22/2024 signed on 04/21 * Full Code (Latest Code Status on File) Date Activated Date Inactivated Comments 10/20/2023 10:03 AM 10/26/2023 1:07 AM This order reflects the patients wishes and were consensually agreed upon. Question Answer Comments Discussion of Advance Directives occurred with: Patient Care Teams Image Archivist Relationship Specialty Start Date End Date Kaz Robledo MD [address] [place] [address] PCP - General Family Medicine 03/05/17 documented as of this encounter
--- OUTSIDE RECORDS SUMMARY | 2024-07-17 08:58 | External Medical Summary | Summary of Care ---
Author Name Unknown Organization [facility] Address [address] [place] [address] Phone [phone] Care Team Providers Care Wood Fuel Pelletizer Name Role Phone Kaz Robledo MD Primary Care Provider +1- [phone] Encounter Details Date Type Department Care Team (Late st Contact Info) Description 06/17/2024 Population Health External Data Unspecified Department Allergies Active Allergy Reactions Criticality Noted Date Comments Atorvastatin Muscle pain 12/11/2016 Bee Stings 02/21/1999 Hives,intense itching,edema Gabapentin 10/02/2023 "Couldn't handle it" documented as of this encounter (statuses as of 06/18/2024) Medications CALCIUM 500 MG PO TABS Take [...] Oral Tablet (Zetia)Indications :Coronary artery disease of [place] artery of [place] heart with stable angina pectoris (HCC),Dyslipidemia , [...] Tablet Delayed ReleaseIndications :Coronary artery disease involving [place] coronary artery of [place] heart without angina pectoris Take 1 Tablet by mouth in the morning. 100 Tablet 2 4 4:50 PM EST 04/23/20 24 Active Vitamin D3 25 MCG (1000 UT) Oral Tablet (Vitamin D3) Take 1 Tablet by mouth in the morning. 100 Tablet 2 4 4:50 PM EST 04/23/20 24 Active Folic Acid 400 MCG Oral TabletIndications: Coronary artery disease involving [place] coronary artery of [place] heart without angina pectoris Take 1 Tablet [...] as of this encounter (statuses as of 06/18/2024) Active Problems Problem Noted Date Diagnosed Date Heart failure 06/16/2024 Paroxysmal atrial flutter 06/16/2024 Polyneuropathy in diseases classified elsewhere 06/16/2024 Depression, unspecified 06/16/2024 Orthostatic hypotension 04/10/2024 Carotid stenosis, asymptomatic, right 12/19/2023 Personal history of [place] (myocardial infarction) 0 10/20/2023 Overview (12/12/2023): 10/20/23 [...] cardiology [facility] Dyslipidemia, goal LDL below 100 04/15/2009 Overview (04/15/2009): Per Lipid Taxonomy. Hearing loss 07/09/2007 documented as of this encounter (statuses as of 06/18/2024) Resolved Problems Problem Noted Date Diagnosed Date [...] 02/15/2012 09/03/2017 Genetic Sleep Disorder Resea [facility] Other*[id number] 06/26/2011 12/08/2015 EXAMINATION OF PARTICIPANT I N CLINICAL TRIAL-Genomics 06/04/2009 08/20/2009 Overview (08/20/2009): Renamed Per Clinical Trials Billing Project. Study Titile: Genomic Markers for Patients with Cardiovascular Disease Project #[id number] PI: Radha Yepez MD Please call [phone] with study related questions GENOMICS CARDIO RESEARCH OTHER*[id number] 06/04/2009 06/13/2016 Overview (08/20/2009): Renamed Per Clinical Trials Billing Project. Study Titile: Genomic Markers for Patients with Cardiovascular Disease Project #[id number] PI: Radha Yepez MD Please call [phone] with study related questions Benign neoplasm of [...] as of this encounter (statuses as of 06/18/2024) Immunizations Name Administration Dates Next Due COVID-19 [...] Nba Estes RN documented in this encounter Plan of Treatment Upcoming Encounters Date Type Department Care Team (Late st Contact Info) Description 06/19/2024 2:30 PM EST Home Visit Care Coordination and Integration [address] [place] [address] Trang Sosa, [facility] Skidder Driver [address] [place] [address] 06/20/2024 9:30 AM EST Telemedicine Psychology Jose G Coleman [address] [place] [address] Page John LCSW 9 [place] [address] 06/23/2024 3:00 PM EST Office Visit Neurology [facility] 200 [place] [address] Darron Calvillo MD [address] [place] [address] 06/26/2024 2:30 PM EST [facility], [facility] [address] [place] [address] Aron Schmid RN [address] [place] [address] 07/01/2024 2:30 PM EST [facility] Visit [facility], [facility] [address] [place] [address] Aron Schmid, GUS [address] [place] [address] 07/07/2024 11:30 AM EST Scheduled Telephone [facility], [facility] [address] [facility] [place] [address] Teresa Johnson RDN [address] [facility] [place] [address] 07/08/2024 10:30 AM EST Office Visit Cardiology, [facility] 132 [facility] [place] [address] Marcia Collins CRNP [address] [place] [address] 07/28/2024 11:30 AM EDT Telemedicine Psychology Jose G Coleman [address] [place] [address] Page John LCSW [address] [place] [address] 10/10/2024 1:00 PM EDT Office Visit Family [facility] [address] [place] [phone] Kaz Robledo MD [address] [place] [address] 10/24/2024 2:00 PM EDT Office Visit Dermatology [facility] 200 [place] [address] Mitchell Mack MD 200 [place] [address] Scheduled Procedures Name Priority Associated Diagnoses Date/Ti [...] Documents on File Type Date Recorded Patient Merchandising Specialist Expl anation AZUL 04/22/2024 signed on 04/21 * Full Code (Latest Code Status on File) Date Activated Date Inactivated Comments 10/20/2023 10:03 AM 10/26/2023 1:07 AM This order reflects the patients wishes and were consensually agreed upon. Question Answer Comments Discussion of Advance Directives occurred with: Patient Care Teams Wood Fuel Pelletizer Relationship Specialty Start Date End Date Kaz Robledo MD [address] [place] [address] PCP - General Family Medicine 03/05/17 documented as of this encounter
--- OUTSIDE RECORDS SUMMARY | 2024-07-17 08:58 | External Medical Summary | Summary of Care ---
Author Name Unknown Organization [facility] Address [address] [place] [address] Phone [phone] Care Team Providers Care Meal Cook Name Role Phone Kaz Robledo MD Primary Care Provider +1- [phone] Reason for Visit * Reason Onset Date Comments [facility]: Maintenance 06/10/2024 Encounter Details Date Type Department Care Team (Late st Contact Info) Description 06/10/2024 Telephone [facility], [facility] [address] [place] [address] Aron Schmid, RN [address] [place] [address] [facility]: Maintenance Allergies Active Allergy [...] Oral Tablet (Zetia)Indications :Coronary artery disease of [place] artery of [place] heart with stable angina pectoris (HCC),Dyslipidemia , [...] Tablet Delayed ReleaseIndications :Coronary artery disease involving [place] coronary artery of [place] heart without angina pectoris Take 1 Tablet by mouth in the morning. 100 Tablet 2 4 4:50 PM EST 04/23/20 24 Active Vitamin D3 25 MCG (1000 UT) Oral Tablet (Vitamin D3) Take 1 Tablet by mouth in the morning. 100 Tablet 2 4 4:50 PM EST 04/23/20 24 Active Folic Acid 400 MCG Oral TabletIndications: Coronary artery disease involving [place] coronary artery of [place] heart without angina pectoris Take 1 Tablet [...] stenosis, asymptomatic, right 12/19/2023 Personal history of [place] (myocardial infarction) 0 10/20/2023 Overview (12/12/2023): 10/20/23 [...] closely with cardiology [facility] Dyslipidemia, goal LDL [...] 09/03/2017 Genetic Sleep Disorder Resea [facility] Other*[id number] 06/26/2011 12/08/2015 EXAMINATION OF PARTICIPANT I N CLINICAL TRIAL-Genomics 06/04/2009 08/20/2009 Overview (08/20/2009): Renamed Per Clinical Trials Billing Project. Study Titile: Genomic Markers for Patients with Cardiovascular Disease Project #[id number] PI: Radha Yepez MD Please call [phone] with study related questions GENOMICS CARDIO RESEARCH OTHER*[id number] 06/04/2009 06/13/2016 Overview (08/20/2009): Renamed Per Clinical Trials Billing Project. Study Titile: Genomic Markers for Patients with Cardiovascular Disease Project #[id number] PI: Radha Yepez MD Please call [phone] with study related questions Benign neoplasm of [...] 10/20/2023 9:22 AM EDT Nba Estes, RN documented in this encounter Miscellaneous Notes [...] PM EST Juan Jose, Pt admitted to [facility] 06/05-06/07 for NSTEMI Pt recommended to f/u with PCP, Toni Sees Cards 07/08 for hospital f/u No hospital f/u scheduled with Dr Robledo at this point Pt is available for f/u any day or time Denies CP, SOB, BROWN at time of visit HR 60 bpm and regular BP 144/80 Pt son and POA is in town and staying with pt, from [place] until 06/18 and would like to accompany pt to appt if appt can be facilitated before 06/18 Thanks! documented in this encounter Plan of Treatment Upcoming Encounters Date Type Department Care Team (Late st Contact Info) Description 06/19/2024 2:30 PM EST Home Visit Care Coordination and Integration [address] [place] [address] Trang Sosa, [facility] [place] [address] [place] [address] 06/23/2024 3:00 PM EST Office Visit Neurology [facility] [address] [place] [address] Darron Calvillo MD [address] [facility] [place] [address] 06/26/2024 2:30 PM EST [facility] Visit [facility], [facility] [address] [facility] [place] [address] Aron Schmid RN [facility] [place] [address] 07/01/2024 2:30 PM EST Home Visit [facility], [facility] 132 [facility] [place] [address] Aron Schmid RN 132 [facility] [address] 07/02/2024 11:00 AM EST Telemedicine Psychology Chance [facility] [address] [place] [address] Aixa Matthew, FIELD EDUCATION COORDINATOR [address] [place] [address] 07/07/2024 11:30 AM EST Scheduled Telephone [facility], [facility] [address] [facility] [place] [address] Teresa Johnson, RDN [address] [facility] [place] [address] 07/08/2024 10:30 AM EST Office Visit Cardiology, [facility] [address] [facility] [place] [address] Marcia Collins CRNP [address] [place] [address] 07/28/2024 11:30 AM EDT Telemedicine Psychology Jose G Coleman [address] [place] [address] Page John LCSW [address] [place] [address] 10/10/2024 1:00 PM EDT Office Visit [facility] [address] [place] [address] Kaz Robledo MD [address] [place] [address] 10/24/2024 2:00 PM EDT Office Visit Dermatology [facility] [place] 200 [facility] [place] [address] Mitchell Mack MD 200 [facility] [place] [address] Scheduled Procedures Name Priority Associated Diagnoses Date/Ti [...] Documents on File Type Date Recorded Patient Dental Appliance Fixer Expl anation POLST 04/22/2024 signed on 04/21 * Full Code (Latest Code Status on File) Date Activated Date Inactivated Comments 10/20/2023 10:03 AM 10/26/2023 1:07 AM This order reflects the patients wishes and were consensually agreed upon. Question Answer Comments Discussion of Advance Directives occurred with: Patient Care Teams Meal Cook Relationship Specialty Start Date End Date Kaz Robledo MD [address] [place] [address] PCP - General Family Medicine 03/05/17 documented as of this encounter
--- OUTSIDE RECORDS SUMMARY | 2024-07-17 08:58 | External Medical Summary | Summary of Care ---
Author Name Unknown Organization [facility] Address [address] [place] [address] Phone [phone] Care Team Providers Care Net Repairer Name Role Phone Kaz Robledo MD Primary Care Provider +1- [phone] Reason for Visit * Reason Onset Date Comments Appointment 06/20/2024 Encounter Details Date Type Department Care Team (Late st Contact Info) Description 06/20/2024 Telephone Psychology [place] [address] [place] [address] Page John LCSW 9 [place] [address] Appointment Allergies Active Allergy Reactions Criticality Noted [...] Oral Tablet (Zetia)Indications :Coronary artery disease of [place] artery of [place] heart with stable angina pectoris (HCC),Dyslipidemia [...] Tablet Delayed ReleaseIndications :Coronary artery disease involving [place] coronary artery of [place] heart without angina pectoris Take 1 Tablet by mouth in the morning. 100 Tablet 2 4 4:50 PM EST 04/23/20 24 Active Vitamin D3 25 MCG (1000 UT) Oral Tablet (Vitamin D3) Take 1 Tablet by mouth in the morning. 100 Tablet 2 4 4:50 PM EST 04/23/20 24 Active Folic Acid 400 MCG Oral TabletIndications: Coronary artery disease involving [place] coronary artery of [place] heart without angina pectoris Take 1 [...] closely with cardiology Continues cardiac rehab via [facility] rehab program Dyslipidemia, goal LDL below [...] disorder 02/15/2012 09/03/2017 Genetic Sleep Disorder Resea [facility] Other*[id number] 06/26/2011 12/08/2015 EXAMINATION OF PARTICIPANT I N CLINICAL TRIAL-Genomics 06/04/2009 08/20/2009 Overview (08/20/2009): Renamed Per Clinical Trials Billing Project. Study Titile: Genomic Markers for Patients with Cardiovascular Disease Project #[id number] PI: Radha Yepez MD Please call [phone] with study related questions GENOMICS CARDIO RESEARCH OTHER*[id number] 06/04/2009 06/13/2016 Overview (08/20/2009): Renamed Per Clinical Trials Billing Project. Study Titile: Genomic Markers for Patients with Cardiovascular Disease Project #[id number] PI: Radha Yepez MD Please call [phone] with study related questions Benign neoplasm of [...] 30 Mcg, IM, 12 yrs and above ([employer]) 02/15/2022 H1N1 2009 Influenza, IM 05/10/2009 Pneumococcal [...] encounter Miscellaneous Notes * Telephone Encounter - Sandra Lou OSA - 06/20/2024 9:37 AM EST Referral Details after Behavioral Health Intake: Referral: Internal Psych Resource: scheduled with Therapy documented in this encounter Plan of Treatment Upcoming Encounters Date Type Department Care Team (Late st Contact Info) Description 06/23/2024 3:00 PM EST Office Visit Neurology [facility] 200 [facility] [place] [address] Darron Calvillo MD [address] [place] [address] 06/26/2024 2:30 PM EST [facility] Visit [facility], [facility] [address] [place] [address] Aron Schmid RN [address] [place] [address] 07/01/2024 2:30 PM EST Home Visit [facility], [facility] [address] [place] [address] Aron Schmid, GUS [address] [place] [address] 07/07/2024 11:30 AM EST Scheduled Telephone [facility], [facility] [address] [facility] [place] [address] Teresa Johnson RDN [address] [facility] [place] [address] 07/08/2024 10:30 AM EST Office Visit Cardiology, [facility] [address] Marica Collins CRNP [address] [facility] [address] 07/10/2024 12:30 PM EST Telemedicine Psychology [facility] [address] Page Mccurdy, [facility] [address] [facility] [address] 07/28/2024 11:30 AM EDT Telemedicine Psychology [place] [address] [place] [address] Page John LCSW [address] [place] [address] 10/10/2024 1:00 PM EDT Office Visit [facility] [address] [place] [address] Kaz Robledo MD [address] [place] [address] 10/24/2024 2:00 PM EDT Office Visit Dermatology [facility] [place] [place] [address] [place] [address] Mitchell Mack MD [address] [place] [address] Scheduled Procedures Name Priority Associated Diagnoses Date/Ti [...] Documents on File Type Date Recorded 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 Question Answer Comments Discussion of Advance Directives occurred with: Patient Care Teams Net Repairer Relationship Specialty Start Date End Date Kaz Robledo MD [address] [place] [address] PCP - General Family Medicine 03/05/17 documented as of this encounter
--- NOTE | 2024-07-17 08:59 | CT Scan Report ---
EXAM: CT abd pelvis IV con only CLINICAL HISTORY: syncope, bloody stool TECHNIQUE: Contrast-enhanced CT of the abdomen and pelvis was performed, with the following protocol: axial images with, and reconstructed coronal and sagittal images. Intravenous contrast was administered (112ml opti 320). One of the following dose reduction techniques was utilized for this exam: Automated exposure control, adjustment of the mA and/or kV according to patient size, and use of iterative reconstruction. COMPARISON: CT dated 05/07/2024. FINDINGS: There is diffuse recto-segmoid circumferential mural thickening noted with submucosal edema and stranding of the surrounding fat planes, denoting acute colitis. Mild wall thickening also noted at the descending colon and segment of transverse colon. Multiple colonic diverticulosis with no diverticulitis noted. Abdomen: Liver: Average in size, shape, and density. Multiple Bilobar well-defined thin-walled cystic lesions were noted with no significant post-contrast enhancement, largest measures 4x3 cm. No focal lesions, cysts, or masses were identified. Hepatic vasculature and biliary ducts are unremarkable. Gallbladder and Biliary System: The gallbladder is normal in size and shape. No wall thickening, pericholecystic fluid, or gallstones were identified. The common bile duct is normal in caliber without dilation. Pancreas: Pancreatic head, body, and tail are visualized and appear normal in size and density. No pancreatic masses or calcifications were noted. The pancreatic duct is not dilated. Spleen: Normal in size, shape, and density. No splenic lesions or masses were identified. Appendix: The appendix is normal in size without molly appendiceal fat stranding, and without an appendicolith. No evidence of appendiceal abscess or perforation. Kidneys and Adrenal Glands: Right renal few cysts, largest upper pole cortical cyst noted measuring about 7.5x6.3 cm. Both kidneys are normal in size, shape, and position. Cortical thickness is within normal limits. No renal calculi or hydronephrosis. Adrenal glands are unremarkable, with no evidence of masses or hyperplasia. Diffuse aortoiliac atherosclerotic changes noted. Pelvis: Urinary Bladder: Normal in contour with mild circumferential increase wall thickness measures 5.5 mm. No intraluminal lesions were identified. Prostate: Mildly enlarged in size with concretions of calcifications noted. No focal lesions or masses were identified. Seminal Vesicles: Normal in size and appearance. No abnormalities were noted. Rectum and Sigmoid Colon: Normal wall thickness and no evidence of mass. Peritoneal and Retroperitoneal Structures: No free fluid or abnormal fluid collections were identified within the abdomen or pelvis. No lymphadenopathy was noted. Bowel: The visualized bowel loops are normal in caliber and appearance. No evidence of bowel obstruction or wall thickening. Bones and Soft Tissues: Moderate spondylosis of the lumbar spine noted. The pelvic bones and soft tissues are unremarkable. No fractures or abnormal masses were identified. IMPRESSION: 1. Diffuse rectosegmoid and to lesser extent descending and segmental area of transverse colon mural thickening suggestive of acute colitis, follow up and laboratory assessment is advised, progressed. 2. Multiple Bilobar well-defined thin-walled simple cysts, stable. 3. Right renal few cysts largest exophytic cyst of Bosniak type I, stable. 4. Mild prostatomegaly noted, stable. 5. Diffuse aortoiliac atherosclerotic changes, stable. 6. Mild urinary bladder wall thickening may be due to underdistension/ cystitis, new finding. Electronically signed by Devante Vyas 07-17-2024 08:58 AM
--- OUTSIDE RECORDS SUMMARY | 2024-07-17 08:59 | External Medical Summary | Summary of Care ---
Author Name Unknown Organization [facility] Address [address] [place] [address] Phone [phone] Care Team Providers Care Communications Field Technician Name Role Phone Kaz Robledo MD Primary Care Provider +1- [phone] Reason for Visit * Reason Onset Date Comments [facility]: Maintenance 06/10/2024 Encounter Details Date Type Department Care Team (Late st Contact Info) Description 06/10/2024 Telephone [facility], [facility] [address] [place] [address] Aron Schmid, RN [address] [place] [address] [facility]: Maintenance Allergies Active Allergy [...] Oral Tablet (Zetia)Indications :Coronary artery disease of [place] artery of [place] pass heart with stable angina pectoris (HCC),Dyslipidemia , [...] Tablet Delayed ReleaseIndications :Coronary artery disease involving false pass coronary artery of false pass heart without angina pectoris Take 1 Tablet by mouth in the morning. 100 Tablet 2 4 4:50 PM EST 04/23/20 24 Active Vitamin D3 25 MCG (1000 UT) Oral Tablet (Vitamin D3) Take 1 Tablet by mouth in the morning. 100 Tablet 2 4 4:50 PM EST 04/23/20 24 Active Folic Acid 400 MCG Oral TabletIndications: Coronary artery disease involving false pass coronary artery of false pass heart without angina pectoris Take 1 Tablet [...] closely with cardiology [facility] Dyslipidemia, goal LDL [...] disorder 02/15/2012 09/03/2017 Genetic Sleep Disorder [facility] Other*[id number] 06/26/2011 12/08/2015 EXAMINATION OF PARTICIPANT I N CLINICAL TRIAL-Genomics 06/04/2009 08/20/2009 Overview (08/20/2009): Renamed Per Clinical Trials Billing Project. Study Titile: Genomic Markers for Patients with Cardiovascular Disease Project #[id number] PI: Radha Yepez MD Please call [phone] with study related questions GENOMICS CARDIO RESEARCH OTHER*[id number] 06/04/2009 06/13/2016 Overview (08/20/2009): Renamed Per Clinical Trials Billing Project. Study Titile: Genomic Markers for Patients with Cardiovascular Disease Project #[id number] PI: Radha Yepez MD Please call [phone] with study related questions Benign neoplasm of [...] PM EST Juan Jose, Pt admitted to [facility] 06/05-06/07 for NSTEMI Pt recommended to f/u with PCP, Cards Sees Cards 07/08 for hospital f/u No hospital f/u scheduled with Dr Robledo at this point Pt is available for f/u any day or time Denies CP, SOB, BROWN at time of visit HR 60 bpm and regular BP 144/80 Pt son and POA is in town and staying with pt, from [place] until 06/18 and would like to accompany pt to appt if appt can be facilitated before 06/18 Thanks! documented in this encounter Plan of Treatment Upcoming Encounters Date Type Department Care Team (Late st Contact Info) Description 06/23/2024 3:00 PM EST Office Visit [facility] [address] Darron Calvillo MD [address] [place] [address] 06/26/2024 2:30 PM EST [facility] Visit [facility], [facility] [address] [place] [address] Aron Schmid RN [address] [place] [address] 07/01/2024 2:30 PM EST Home Visit [facility], [facility] [address] [place] [address] Aron Schmid RN [address] [place] [address] 07/02/2024 11:00 AM EST Telemedicine Psychology Jose G Coleman [address] [place] [address] Aixa Matthew, GROUND SCHOOL INSTRUCTOR [address] [place] [address] 07/07/2024 11:30 AM EST Scheduled Telephone [facility], [facility] [address] [place] [facility] [place] [address] Teersa Johnson, RDN [address] [place] [address] 07/08/2024 10:30 AM EST Office Visit Cardiology, [facility] [address] [place] [address] Marcia Collins CRNP [address] [place] [address] 07/28/2024 11:30 AM EDT Telemedicine Psychology Jose G Coleman [address] [place] [address] Page John GROUND SCHOOL INSTRUCTOR [address] [place] [address] 10/10/2024 1:00 PM EDT Office Visit [facility] [address] [place] [phone] Kaz Robledo MD [address] [place] [address] 10/24/2024 2:00 PM EDT Office Visit Dermatology [facility] [address] [place] [address] Mitchell Mack MD [address] [place] [address] Scheduled Procedures Name Priority Associated Diagnoses Date/Ti [...] Documents on File Type Date Recorded 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 Question Answer Comments Discussion of Advance Directives occurred with: Patient Care Teams Communications Field Technician Relationship Specialty Start Date End Date Kaz Robledo MD [address] [place] [place] [address] PCP - General Family Medicine 03/05/17 documented as of this encounter
--- OUTSIDE RECORDS SUMMARY | 2024-07-17 08:59 | External Medical Summary | Summary of Care ---
Author Name Unknown Organization [facility] Address [address] [place] [address] Phone [phone] Care Team Providers Care Respite Provider Name Role Phone Kaz Robledo MD Primary Care Provider +1- [phone] Reason for Visit * Reason Onset Date Comments [facility]: Maintenance 06/03/2024 Encounter Details Date Type Department Care Team (Late st Contact Info) Description 06/03/2024 Telephone [facility], [facility] [address] [place] [address] Aron Schmid, RN [address] [place] [address] [facility]: Maintenance Allergies Active Allergy [...] Oral Tablet (Zetia)Indications :Coronary artery disease of [place] artery of [place] heart with stable angina pectoris (HCC),Dyslipidemia [...] Tablet Delayed ReleaseIndications :Coronary artery disease involving [place] coronary artery of [place] heart without angina pectoris Take 1 Tablet by mouth in the morning. 100 Tablet 2 4 4:50 PM EST 04/23/20 24 Active Vitamin D3 25 MCG (1000 UT) Oral Tablet (Vitamin D3) Take 1 Tablet by mouth in the morning. 100 Tablet 2 4 4:50 PM EST 04/23/20 24 Active Folic Acid 400 MCG Oral TabletIndications: Coronary artery disease involving [place] coronary artery of [place] heart without angina pectoris Take 1 [...] closely with cardiology [facility] Dyslipidemia, goal LDL below [...] 02/15/2012 09/03/2017 Genetic Sleep Disorder [facility] Other*[id number] 06/26/2011 12/08/2015 EXAMINATION OF PARTICIPANT I N CLINICAL TRIAL-Genomics 06/04/2009 08/20/2009 Overview (08/20/2009): Renamed Per Clinical Trials Billing Project. Study Titile: Genomic Markers for Patients with Cardiovascular Disease Project #[id number] PI: Radha Yepez MD Please call [phone] with study related questions GENOMICS CARDIO RESEARCH OTHER*[id number] 06/04/2009 06/13/2016 Overview (08/20/2009): Renamed Per Clinical Trials Billing Project. Study Titile: Genomic Markers for Patients with Cardiovascular Disease Project #[id number] PI: Radha Yepez MD Please call [phone] with study related questions Benign neoplasm of [...] Telephone Encounter - Aron Schmid RN - 06/03/2024 4:25 PM EST Pt reports dull intermittent pressure to R posterior portion of head- in occipital region Pt denies injury, trauma, hitting area Pt denies pain to area No notable injury to area On review appears last imaging of head was an MRI on 06/16/2005 documented in this encounter Plan of Treatment Upcoming Encounters Date Type Department Care Team (Late st Contact Info) Description 06/23/2024 3:00 PM EST Office Visit Neurology [facility] [address] [facility] [place] [address] Darron Calvillo MD [address] [facility] [place] [address] 06/26/2024 2:30 PM EST [facility] Visit [facility], [facility] 132 [facility] [place] [address] Aron Schmid RN 132 [facility] [place] [address] 07/01/2024 2:30 PM EST Home Visit [facility], [facility] 132 [facility] [place] [address] Aron Schmid RN [facility] [address] 07/02/2024 11:00 AM EST Telemedicine Psychology Jose G Coleman [address] [place] [address] Aixa Matthew, ADIN [address] [place] [address] 07/07/2024 11:30 AM EST Scheduled Telephone [facility], [facility] [address] [facility] [place] [address] Teresa Johnson RDN [address] [facility] [place] [address] 07/08/2024 10:30 AM EST Office Visit Cardiology, [facility] 132 [facility] [place] [address] Marcia Collins CRNP [address] [place] [address] 07/28/2024 11:30 AM EDT Telemedicine Psychology Jose G Coleman [address] [place] [address] Page John LCSW [address] [facility] [place] [address] 10/10/2024 1:00 PM EDT Office Visit Family [facility] [address] [place] [phone] Kaz Robledo MD [address] [place] [address] 10/24/2024 2:00 PM EDT Office Visit Dermatology [facility] [address] [place] [address] Mitchell Mack MD [address] [place] [address] Scheduled Procedures Name Priority Associated Diagnoses Date/Ti [...] Documents on File Type Date Recorded 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 Question Answer Comments Discussion of Advance Directives occurred with: Patient Care Teams Respite Provider Relationship Specialty Start Date End Date Kaz Robledo MD [address] [place] [address] PCP - General Family Medicine 03/05/17 documented as of this encounter
--- OUTSIDE RECORDS SUMMARY | 2024-07-17 08:59 | External Medical Summary | Summary of Care ---
Author Name Unknown Organization [facility] Address [address] [place] [address] Phone [phone] Care Team Providers Care Director Of Parks And Recreation Name Role Phone Kaz Robledo MD Primary Care Provider +1- [phone] Encounter Details Date Type Department Care Team (Late st Contact Info) Description 06/10/2024 4:00 PM EST [facility] [address] [place] [address] Aron Schmid, RN [address] [place] [address] Allergies Active Allergy Reactions Criticality Noted Date [...] minutes prior to injection. 2 mL 5 8:50 AM EST 04/16/20 24 Active Citalopram Hydrobromide 20 MG Oral Tablet (CeleXA)Indication s:Major depressive disorder, recurrent episode, mild (HCC) Take 1 Tablet by mouth in the morning. 100 Tablet 5 11:15 AM EST 04/23/20 24 Active Ezetimibe 10 MG Oral Tablet (Zetia)Indications :Coronary artery disease of [place] artery of [place] heart with stable angina pectoris (HCC),Dyslipidemia , [...] Tablet Delayed ReleaseIndications :Coronary artery disease involving [place] coronary artery of [place] heart without angina pectoris Take 1 Tablet by mouth in the morning. 100 Tablet 2 4 4:50 PM EST 04/23/20 24 Active Vitamin D3 25 MCG (1000 UT) Oral Tablet (Vitamin D3) Take 1 Tablet by mouth in the morning. 100 Tablet 2 4 4:50 PM EST 04/23/20 24 Active Folic Acid 400 MCG Oral TabletIndications: Coronary artery disease involving [place] coronary artery of [place] heart without angina pectoris Take 1 Tablet [...] closely with cardiology [facility] Dyslipidemia, goal LDL below [...] Disorder [facility]ea [facility] Other*[id number] 06/26/2011 12/08/2015 EXAMINATION OF PARTICIPANT I N CLINICAL TRIAL-Genomics 06/04/2009 08/20/2009 Overview (08/20/2009): Renamed Per Clinical Trials Billing Project. Study Titile: Genomic Markers for Patients with Cardiovascular Disease Project #[id number] PI: Radha Yepez MD Please call [phone] with study related questions GENOMICS CARDIO RESEARCH OTHER*[id number] 06/04/2009 06/13/2016 Overview (08/20/2009): Renamed Per Clinical Trials Billing Project. Study Titile: Genomic Markers for Patients with Cardiovascular Disease Project #[id number] PI: Radha Yepez MD Please call [phone] with study related questions Benign neoplasm of [...] Progress Notes * Aron Schmid RN - 06/10/2024 4:00 PM EST Images from the original note were not included. Current Concerns: Situation: Pt seen today by [facility] habitat management coordinator for routine follow-up visit. Background: PMH includes: PVD, HTN, Carotid stenosis, COPD, Parkinson's disease, Hx NSTEMI on 10/20/23 Assessment: Pt admitted to [facility] 06/05-06/07 for CP, headache- found to have NSTEMI Pt reports daughter came over to house night prior to drop of titles to vehicles that pt owns, as his employment law attorney had requested for her to do Pt reports he went to bed feeling anxious but with no CP and woke up early next AM (approx 0430) and developed CP, headache that was unrelieved with nitro and rest Called for EMS transport to ED, after seeking advice from Joceline Rodgers, employment law attorney CM Treated in ambulance transport with nitro nasal spray and morphine Treated inpatient with IV heparin Pt does not wish to undergo cardiac cath Maintained DNR status during admission No med changes on discharge Pt denies CP, SOB above baseline, headache since discharge from hospital Pt reports that he feels he is doing "better" Pt states his anxiety is "nearly gone" at time of visit BUE tremors not visible at time of visit Pt f/u with Cards 07/08 No PCP f/u scheduled, this RN sent TE to Dr Robledo office's nurses to assist in facilitating appt Placed referral for [facility] to see pt for f/u visit week of 06/16 if possible Pt aware that someone may be calling with appt dates and times for PCP OV, as well as CHW visit Ecchymosis to R dorsal foot as seen below Pt has full movement of toes Denies pain Reports toes feel more numb than usual Pt denies known injury to the area Pt states "I think it might've happened when they were loading me onto the stretcher for the ambulance" Pt reports that he did not note the bruising until after returning home from admission Pt son Cam, is in in town from [place] and staying with pt until 06/18 Pt reports POA paperwork has been completed, and Cam is officially pt POA Pt does not have physical document to scan into chart at this time Per pt, daughter is to received documents from employment law attorney "sometime today" that she is no longer pt POA Pt continues with [facility] SN, PT, OT Pt seen by SN today- per pt report "I checked out good with them" Physical Exam: Physical Exam HENT: Nose: Nose normal. Cardiovascular: Rate and Rhythm: Normal rate and regular rhythm. Pulmonary: Effort: Pulmonary effort is normal. Breath sounds: Normal breath sounds. Abdominal: General: Bowel sounds are normal. There is no distension. Palpations: Abdomen is soft. Tenderness: There is no abdominal tenderness. Musculoskeletal: General: Signs of injury (RLE) present. Normal range of motion. Skin: General: Skin is warm and dry. Capillary Refill: Capillary refill takes 2 to 3 seconds. Neurological: General: No focal deficit present. Mental Status: He is alert. Mental status is at baseline. Psychiatric: Mood and Affect: Mood normal. Behavior: Behavior normal. Review of Systems: Review of Systems Constitutional: Positive for fatigue. Negative for chills and fever. HENT: Negative. Respiratory: Negative. Negative for cough, chest tightness and shortness of breath. Cardiovascular: Positive for leg swelling (Trace to BLE). Negative for chest pain. Gastrointestinal: Negative. Genitourinary: Negative. Musculoskeletal: Positive for gait problem. Skin: Positive for color change (Ecchymosis to R foot). Neurological: Negative for dizziness, syncope, weakness and headaches. Psychiatric/Behavioral: Negative. Care Plan Goal Progress: Patient will maintain manageable anxiety level. (Progressing) Start: 01/22/24 Expected End: 03/06/24 Pt will report decrease in physical symptoms of stress. (Progressing) Start: 01/22/24 Expected End: 03/06/24 Orders Placed: No orders of the defined types were placed in this encounter. Care Gaps: Care Gaps Care gaps closed this contact: Education;Medications;Plan of Care (POC) (06/10/241532) Type of education: Clinical/disease (06/10/241532) Type of medication care gap: Medication adherence;Medication optimization (06/10/241532) Type of plan of care (POC) care gap: Education and review of exacerbation plan (06/10/241532) documented in this encounter Plan of Treatment Upcoming Encounters Date Type Department Care Team (Late st Contact Info) Description 06/23/2024 3:00 PM EST Office Visit Neurology [address] [place] [address] Darron Calvillo MD [address] [facility] [place] [address] 06/26/2024 2:30 PM EST [facility] [address] [place] [address] Aron Schmid RN [facility] [address] 07/01/2024 2:30 PM EST [facility] Visit [facility], [facility] 132 [facility] [place] [address] Aron Schmid RN 132 [facility] [address] 07/02/2024 11:00 AM EST Telemedicine Psychology Jose G Coleman [address] [place] [address] Aixa Matthew, ADIN [address] [place] [address] 07/07/2024 11:30 AM EST Scheduled Telephone [facility], [facility] [address] [place] [facility] [place] [address] Teresa Johnson RDN [address] [place] [facility] [place] [address] 07/08/2024 10:30 AM EST Office Visit Cardiology, [facility] [place] [address] Marcia Collins CRNP [address] [facility] [place] [address] 07/28/2024 11:30 AM EDT Telemedicine Psychology Jose G Coleman [address] [place] [address] Page John LCSW [address] [place] [address] [place] G [place] [address] 10/10/2024 1:00 PM EDT Office Visit [facility] [address] [facility] [place] [phone] Kaz Robledo MD [address] [facility] [place] [address] 10/24/2024 2:00 PM EDT Office Visit Dermatology [place] [facility] [place] [address] Mitchell Mack MD [address] [facility] [place] [address] Scheduled Procedures Name Priority Associated Diagnoses Date/Ti [...] Documents on File Type Date Recorded Patient Manager Company Expl anation POL 04/22/2024 signed on 04/21 * Full Code (Latest Code Status on File) Date Activated Date Inactivated Comments 10/20/2023 10:03 AM 10/26/2023 1:07 AM This order reflects the patients wishes and were consensually agreed upon. Question Answer Comments Discussion of Advance Directives occurred with: Patient Care Teams Director Of Parks And Recreation Relationship Specialty Start Date End Date Kaz Robledo MD [address] [place] [address] PCP - General Family Medicine 03/05/17 documented as of this encounter
--- OUTSIDE RECORDS SUMMARY | 2024-07-17 08:59 | External Medical Summary | Summary of Care ---
Author Name Unknown Organization [facility] Address [address] [place] [address] Phone [phone] Care Team Providers Care Salon Sales Consultant Name Role Phone Kaz Robledo MD Primary Care Provider +1- [phone] Reason for Visit * Reason Onset Date Comments [facility]: Maintenance 06/10/2024 Encounter Details Date Type Department Care Team (Late st Contact Info) Description 06/10/2024 Telephone [facility], [facility] [address] [place] [address] Aron Schmid, RN [address] [place] [address] [facility]: Maintenance Allergies Active Allergy [...] Oral Tablet (Zetia)Indications :Coronary artery disease of [place] artery of [place] heart with stable angina pectoris (HCC),Dyslipidemia , [...] Tablet Delayed ReleaseIndications :Coronary artery disease involving [place] coronary artery of [place] heart without angina pectoris Take 1 Tablet by mouth in the morning. 100 Tablet 2 4 4:50 PM EST 04/23/20 24 Active Vitamin D3 25 MCG (1000 UT) Oral Tablet (Vitamin D3) Take 1 Tablet by mouth in the morning. 100 Tablet 2 4 4:50 PM EST 04/23/20 24 Active Folic Acid 400 MCG Oral TabletIndications: Coronary artery disease involving [place] coronary artery of [place] heart without angina pectoris Take 1 Tablet [...] history of ME (myocardial infarction) 0 10/20/2023 Overview (12/12/2023): 10/20/23 [...] cardiology [facility] Dyslipidemia, goal LDL below [...] 09/03/2017 Genetic Sleep Disorder Resea [facility] Other*[id number] 06/26/2011 12/08/2015 EXAMINATION OF PARTICIPANT I N CLINICAL TRIAL-Genomics 06/04/2009 08/20/2009 Overview (08/20/2009): Renamed Per Clinical Trials Billing Project. Study Titile: Genomic Markers for Patients with Cardiovascular Disease Project #[id number] PI: Radha Yepez MD Please call [phone] with study related questions GENOMICS CARDIO RESEARCH OTHER*[id number] 06/04/2009 06/13/2016 Overview (08/20/2009): Renamed Per Clinical Trials Billing Project. Study Titile: Genomic Markers for Patients with Cardiovascular Disease Project #[id number] PI: Radha Yepez MD Please call [phone] with study related questions Benign neoplasm of [...] PM EST Juan Jose, Pt admitted to [facility] 06/05-06/07 for NSTEMI Pt recommended [...] in town and staying with pt, from [place] until 06/18 and would like to accompany pt to appt if appt can be facilitated before 06/18 Thanks! documented in this encounter Plan of Treatment Upcoming Encounters Date Type Department Care Team (Late st Contact Info) Description 06/23/2024 3:00 PM EST Office Visit Neurology [facility] [address] Darron Calvillo MD [address] [place] [address] 06/26/2024 2:30 PM EST [facility] Visit [facility] [place], [facility] [address] [place] [address] Aron Schmid RN [address] [place] [address] 07/01/2024 2:30 PM EST Home Visit [facility] [place], [facility] [address] [place] [address] Aron Schmid RN [address] [place] [address] 07/02/2024 11:00 AM EST Telemedicine Psychology Jose G Coleman [address] [place] [address] Aixa Matthew, DEPUTY JUVENILE OFFICER [address] [place] [address] 07/07/2024 11:30 AM EST Scheduled Telephone [facility], [facility] [address] [facility] [place] [address] Teresa Johnson, RDN [address] [place] [address] 07/08/2024 10:30 AM EST Office Visit Cardiology, [facility] [address] [place] [address] Marcia Collins CRNP [address] [place] [address] 07/28/2024 11:30 AM EDT Telemedicine Psychology Jose G Coleman [address] [place] [address] Page John DEPUTY JUVENILE OFFICER [address] [place] [address] 10/10/2024 1:00 PM EDT Office Visit [facility] [address] [place] [phone] Kaz Robledo MD [address] [place] [address] 10/24/2024 2:00 PM EDT Office Visit Dermatology [facility] [address] [place] [address] Mitchell Mack MD [address] [place] [address] Scheduled Procedures Name Priority Associated Diagnoses Date/Ti [...] Documents on File Type Date Recorded Patient Decal Maker Deisi LIANG 04/22/2024 signed on 04/21 * Full Code (Latest Code Status on File) Date Activated Date Inactivated Comments 10/20/2023 10:03 AM 10/26/2023 1:07 AM This order reflects the patients wishes and were consensually agreed upon. Question Answer Comments Discussion of Advance Directives occurred with: Patient Care Teams Salon Sales Consultant Relationship Specialty Start Date End Date Kaz Robledo MD [address] [place] [address] PCP - General Family Medicine 03/05/17 documented as of this encounter
--- OUTSIDE RECORDS SUMMARY | 2024-07-17 09:00 | External Medical Summary | Summary of Care ---
Author Name Unknown Organization [facility] Address [address] [place] [address] Phone [phone] Care Team Providers Care Clearance Coordinator Name Role Phone Kaz Robledo MD Primary Care Provider +1- [phone] Reason for Visit * Reason Onset Date Comments [facility]: Maintenance 06/09/2024 Encounter Details Date Type Department Care Team (Late st Contact Info) Description 06/09/2024 Telephone [facility], [facility] [place] [address] [place] [id number] Sangeetha Russo, HENRIETTA [address] [place] [address] [facility]: Maintenance Allergies Active Allergy Reactions Criticality Noted Date Comments Atorvastatin Muscle pain 12/11/2016 Bee Stings 02/21/1999 Hives,intense itching,edema Gabapentin 10/02/2023 "Couldn't handle it" documented as of this encounter (statuses as of 06/09/2024) Medications CALCIUM 500 MG PO TABS Take by mouth daily. 60 Tab 0 05/02/20 10 Active NITROGLYCERIN 0.4 MG SL SUBLIndications:St able angina (HCC) 1 TAB EVERY 5 MIN NEEDED, UP TO 3 PER EPISODE 25 Tab 5 10/15/19 14 Active Additional Information Patient not taking.Reported on 06/03/2024 docusate sodium (COLACE) 100 MG Capsule Take 1 Capsule by mouth daily as needed. Active Ketoconazole 2 % External CreamIndications:S eborrheic dermatitis Apply to face 2-3 x's per week. 30 g 4 02/05/20 20 Active Diclofenac Sodium 1 % External GelIndications:Acu te pain of right shoulder Apply 4 gm topically to right shoulder 4 times a day 200 g 1 08/10/19 21 Active Additional Information Patient not taking.Reported on 06/03/2024 Polyethylene Glycol 3350 17 GM/SCOOP Oral Powder [...] dose and a half daily, Reported on 06/03/2024 Melatonin 3 MG Oral Tablet Disintegrating Take 2 Tablets by mouth at bedtime. Active Triamcinolone Acetonide 0.1 % External Cream (Aristocort)Indica tions:Hand erythema Apply topically to affected area 2 times a day 45 g 03/18/20 Active Additional Information Patient not taking.Reported on 06/03/2024 Multivitamin Adult Oral Tablet Take 1 Tablet by mouth in the morning. 90 Tablet 3 03/18/20 24 Active Co Q-10 400 MG Oral Capsule Take 1 Capsule by mouth once. 04/10/20 24 Active Repatha SureClick 140 MG/ML Subcutaneous Solution Auto-injector (evolocumab) Inject 140 mg under the skin every 14 days. Remove from refrigerator 30 minutes prior to injection. 2 mL 8:50 AM EST 04/16/20 24 Active Citalopram Hydrobromide 20 MG Oral Tablet (CeleXA)Indication s:Major depressive disorder, recurrent episode, mild (HCC) Take 1 Tablet by mouth in the morning. 100 Tablet 5 11:15 AM EST 04/23/20 24 Active Ezetimibe 10 MG Oral Tablet (Zetia)Indications :Coronary artery disease of [place] artery of [place] heart with stable angina pectoris (HCC),Dyslipidemia , [...] Tablet Delayed ReleaseIndications :Coronary artery disease involving [place] coronary artery of [place] heart without angina pectoris Take 1 Tablet by mouth in the morning. 100 Tablet 2 4 4:50 PM EST 04/23/20 24 Active Vitamin D3 25 MCG (1000 UT) Oral Tablet (Vitamin D3) Take 1 Tablet by mouth in the morning. 100 Tablet 2 4 4:50 PM EST 04/23/20 24 Active Folic Acid 400 MCG Oral TabletIndications: Coronary artery disease involving [place] coronary artery of [place] heart without angina pectoris Take 1 Tablet [...] as of this encounter (statuses as of 06/09/2024) Active Problems Problem Noted Date Diagnosed Date Orthostatic hypotension 04/10/2024 Carotid stenosis, asymptomatic, right 12/19/2023 Personal history of AR (myocardial infarction) 0 10/20/2023 Overview (12/12/2023): 10/20/23 [...] [facility] Dyslipidemia, goal LDL below 100 04/15/2009 Overview (04/15/2009): Per Lipid Taxonomy. Hearing loss 07/09/2007 documented as of this encounter (statuses as of 06/09/2024) Resolved Problems Problem Noted Date Diagnosed Date [...] 09/03/2017 Genetic Sleep Disorder Resea [facility] Other*[id number] 06/26/2011 12/08/2015 EXAMINATION OF PARTICIPANT I N CLINICAL TRIAL-Genomics 06/04/2009 08/20/2009 Overview (08/20/2009): Renamed Per Clinical Trials Billing Project. Study Titile: Genomic Markers for Patients with Cardiovascular Disease Project #[id number] PI: Radha Yepez MD Please call [phone] with study related questions GENOMICS CARDIO RESEARCH OTHER*[id number] 06/04/2009 06/13/2016 Overview (08/20/2009): Renamed Per Clinical Trials Billing Project. Study Titile: Genomic Markers for Patients with Cardiovascular Disease Project #[id number] PI: Radha Yepez MD Please call [phone] with study related questions Benign neoplasm of [...] as of this encounter (statuses as of 06/09/2024) Immunizations Name Administration Dates Next Due COVID-19 mRNA, LNP-s, No Pre serve, 2-Dose Series (Moderna) 07/02/2020,06/03/2020 COVID-19, mRNA, LNP-s, PF, B ooster, 100mcg/0.5mg (Moderna) 10/06/2021,03/02/2021 Covid-19, Mrna, Lnp-s, Pf, B ivalent, 30 Mcg, IM, 12 yrs and above (Proxima Cancion) 02/15/2022 H1N1 2009 Influenza, IM 05/10/2009 Pneumococcal [...] Date Author No 10/20/2023 9:22 AM EDT Estes, Jar yn M, RN documented in this encounter Miscellaneous Notes * Telephone Encounter - KaranSangeetha OSA - 06/09/2024 10:38 AM EST Request to call pt and schedule JANET visit. Spoke to pt confirmed 06/10 at 4 pm works for him. documented in this encounter Plan of Treatment Upcoming Encounters Date Type Department Care Team (Late st Contact Info) Description 06/10/2024 4:00 PM EST [facility] Visit [facility], [facility] [address] [facility] [place] [address] Aron Schmid RN 132 [facility] [place] [address] 06/23/2024 3:00 PM EST Office Visit Neurology [facility] [address] [place] [address] Darron Calvillo MD [address] [facility] [place], [place] [address] 06/26/2024 2:30 PM EST [facility] Visit [facility], [facility] [address] [facility] [place] [address] Aron Schmid RN 132 [facility] [place] [address] 07/02/2024 11:00 AM EST Telemedicine Psychology Jose G Coleman [address] [place] [address] Aixa Matthew, ADIN [address] [place] [address] 07/07/2024 11:30 AM EST Scheduled Telephone [facility], [facility] [address] [facility] [place] [address] Teresa Johnson RDN [address] [facility] [place] [address] 07/08/2024 10:30 AM EST Office Visit Cardiology, [facility] [address] [facility] [place] [address] Marcia Collins CRNP [address] [place] [address] 07/28/2024 11:30 AM EDT Telemedicine Psychology Jose G Coleman [address] [place] [address] Page John LCSW [address] [place] [address] 10/10/2024 1:00 PM EDT Office Visit Family [facility] [address] [place] [address] Kaz Robledo MD [address] [place] [address] 10/24/2024 2:00 PM EDT Office Visit Dermatology [facility] 200 [place] [address] Mitchell Mack MD [address] [place] [address] Scheduled Procedures Name Priority Associated Diagnoses Date/Ti [...] ASSESSMENT COMPLETED IN PAST YEAR FOR COPD 06/03/2025 06/03/2024 Albumin/Creatinine Ratio 07/17/2026 07/18/2023, 09/05 DTap/Tdap Vaccines [...] Documents on File Type Date Recorded Patient Methodologist Expl anation POL 04/22/2024 signed on 04/21 * Full Code (Latest Code Status on File) Date Activated Date Inactivated Comments 10/20/2023 10:03 AM 10/26/2023 1:07 AM This order reflects the patients wishes and were consensually agreed upon. Question Answer Comments Discussion of Advance Directives occurred with: Patient Care Teams Clearance Coordinator Relationship Specialty Start Date End Date Kaz Robledo MD [address] [place] [address] PCP - General Family Medicine 03/05/17 documented as of this encounter
--- OUTSIDE RECORDS SUMMARY | 2024-07-17 09:02 | External Medical Summary | Summary of Care ---
Author Name Unknown Organization [facility] Address [address] [place] [address] Phone [phone] Care Team Providers Care Mower Mechanic Name Role Phone Kaz Robledo MD Primary Care Provider +1- [phone] Encounter Details Date Type Department Care Team (Late st Contact Info) Description 06/09/2024 Population Health External Data Unspecified Department Allergies [...] 4 times a day 200 g 1 04/05/20 21 Active Additional Information Patient not taking.Reported [...] Oral Tablet (Zetia)Indications :Coronary artery disease of [place] artery of [place] heart with stable angina pectoris (HCC),Dyslipidemia [...] Tablet Delayed ReleaseIndications :Coronary artery disease involving [place] coronary artery of [place] heart without angina pectoris Take 1 Tablet by mouth in the morning. 100 Tablet 2 4 4:50 PM EST 04/23/20 24 Active Vitamin D3 25 MCG (1000 UT) Oral Tablet (Vitamin D3) Take 1 Tablet by mouth in the morning. 100 Tablet 2 4 4:50 PM EST 04/23/20 24 Active Folic Acid 400 MCG Oral TabletIndications: Coronary artery disease involving [place] coronary artery of [place] heart without angina pectoris Take 1 [...] history of [place] (myocardial infarction) 0 10/20/2023 Overview (12/12/2023): 10/20/23 [...] closely with cardiology [facility] Dyslipidemia, goal LDL [...] disorder 02/15/2012 09/03/2017 Genetic Sleep Disorder Resea [facility] Other*[id number] 06/26/2011 12/08/2015 EXAMINATION OF PARTICIPANT I N CLINICAL TRIAL-Genomics 06/04/2009 08/20/2009 Overview (08/20/2009): Renamed Per Clinical Trials Billing Project. Study Titile: Genomic Markers for Patients with Cardiovascular Disease Project #[id number] PI: Radha Yepez MD Please call [phone] with study related questions GENOMICS CARDIO RESEARCH OTHER*[id number] 06/04/2009 06/13/2016 Overview (08/20/2009): Renamed Per Clinical Trials Billing Project. Study Titile: Genomic Markers for Patients with Cardiovascular Disease Project #[id number] PI: Radha Yepez MD Please call [phone] with study related questions Benign neoplasm of [...] of Assessment Author No 10/20/2023 9:22 AM Roberto Wynn RN documented as of this encounter [...] PM EST Office Visit Neurology [facility] [place] 200 [facility] [place] [address] Darron Calvillo MD [address] [place] [address] 06/26/2024 2:30 PM EST [facility] Visit [facility], [facility] [address] [employer] [place] [address] Aron Schmid, RN 132 [facility] [place] [address] 07/02/2024 11:00 AM EST Telemedicine Psychology Jose G Coleman [address] [place] [address] Aixa Matthew, LEAD PONY RIDER [address] [place] [address] 07/07/2024 11:30 AM EST Scheduled Telephone [facility], [facility] [address] [place] [facility] [place] [address] Teresa Johnson RDN [address] [place] [facility] [place] [address] 07/08/2024 10:30 AM EST Office Visit Cardiology, [facility] [address] [facility] [address] Marcia Collins CRNP 132 [facility] [place] [address] 07/28/2024 11:30 AM EDT Telemedicine Psychology Jose G Coleman [address] [place] [address] Page John LCSW [address] [place], [place] [address] 10/10/2024 1:00 PM EDT Office Visit Family Practice, [facility] [address] [facility] [phone] Kaz Robledo MD [address] [place] [address] 10/24/2024 2:00 PM EDT Office Visit Dermatology [facility] [address] [place] [address] Mitchell Mack MD 200 [facility] [place] [address] Scheduled Procedures Name Priority Associated Diagnoses Date/Ti [...] Documents on File Type Date Recorded Patient Folder Machine Operator Expl anation POLST 04/22/2024 signed on 04/21 * Full Code (Latest Code Status on File) Date Activated Date Inactivated Comments 10/20/2023 10:03 AM 10/26/2023 1:07 AM This order reflects the patients wishes and were consensually agreed upon. Question Answer Comments Discussion of Advance Directives occurred with: Patient Care Teams Mower Mechanic Relationship Specialty Start Date End Date Kaz Robledo MD [address] [place] [address] PCP - General Family Medicine 03/05/17 documented as of this encounter
--- OUTSIDE RECORDS SUMMARY | 2024-07-17 09:02 | External Medical Summary | Summary of Care ---
Author Name Unknown Organization [facility] Address [address] [place] [address] Phone [phone] Care Team Providers Care Manager Beauty Name Role Phone Kaz Robledo MD Primary Care Provider +1- [phone] Reason for Visit * Reason Onset Date Comments [facility]: Maintenance 06/09/2024 Encounter Details Date Type Department Care Team (Late st Contact Info) Description 06/09/2024 Telephone [facility], [facility] [address] [place] [address] Aixa Castañeda, ONLINE TRADER [address] [place] [address] [facility]: Maintenance Allergies Active Allergy [...] twice a day 850 g 1 12/30/19 Active Additional Information Patient taking differently:17 g [...] Oral Tablet (Zetia)Indications :Coronary artery disease of [place] artery of [place] heart with stable angina pectoris (HCC),Dyslipidemia , [...] Tablet Delayed ReleaseIndications :Coronary artery disease involving [place] coronary artery of [place] heart without angina pectoris Take 1 Tablet by mouth in the morning. 100 Tablet 2 4 4:50 PM EST 04/23/20 24 Active Vitamin D3 25 MCG (1000 UT) Oral Tablet (Vitamin D3) Take 1 Tablet by mouth in the morning. 100 Tablet 2 4 4:50 PM EST 04/23/20 24 Active Folic Acid 400 MCG Oral TabletIndications: Coronary artery disease involving [place] coronary artery of [place] heart without angina pectoris Take 1 Tablet [...] with cardiology [facility] Dyslipidemia, goal LDL below [...] 09/03/2017 Genetic Sleep Disorder Resea [facility] Other*[id number] 06/26/2011 12/08/2015 EXAMINATION OF PARTICIPANT I N CLINICAL TRIAL-Genomics 06/04/2009 08/20/2009 Overview (08/20/2009): Renamed Per Clinical Trials Billing Project. Study Titile: Genomic Markers for Patients with Cardiovascular Disease Project #[id number] PI: Radha Yepez MD Please call [phone] with study related questions GENOMICS CARDIO RESEARCH OTHER*[id number] 06/04/2009 06/13/2016 Overview (08/20/2009): Renamed Per Clinical Trials Billing Project. Study Titile: Genomic Markers for Patients with Cardiovascular Disease Project #[id number] PI: Radha Yepez MD Please call [phone] with study related questions Benign neoplasm of [...] 30 Mcg, IM, 12 yrs and above (Allegorithmic) 02/15/2022 H1N1 2009 Influenza, IM 05/10/2009 Pneumococcal [...] encounter Miscellaneous Notes * Telephone Encounter - Aixa Castañeda LPN - 06/09/2024 8:36 AM EST Patient discharged from [facility] to home TT to [facility] informatica architect Sangeetha Russo to schedule JANET tomorrow with Aron documented in this encounter Plan of Treatment Upcoming Encounters Date Type Department Care Team (Late st Contact Info) Description 06/10/2024 4:00 PM EST [facility] Visit [facility], [facility] 132 [facility] [place] [address] Aron Schmid RN 132 [facility] [place] [address] 06/23/2024 3:00 PM EST Office Visit Neurology [facility] 200 [place] [address] Darron Calvillo MD [address] [place], [place] [address] 06/26/2024 2:30 PM EST [facility] Visit [facility], [facility] 132 [facility] [place] [address] Aron Schmid RN 132 [facility] [place] [address] 07/02/2024 11:00 AM EST Telemedicine Psychology Jose G Coleman [address] [place] [address] Aixa aMtthew, ADIN [address] [place] [address] 07/07/2024 11:30 AM EST Scheduled Telephone [facility], [facility] [address] [facility] [place] [address] Teresa Johnson RDN [address] [place] [address] 07/08/2024 10:30 AM EST Office Visit Cardiology, [facility] [address] [place] [address] Marcia Collins CRNP [address] [place] [address] 07/28/2024 11:30 AM EDT Telemedicine Psychology Jose G Coleman [address] [place] [address] Page John LCSW 9 [place] [address] 10/10/2024 1:00 PM EDT Office Visit Family [facility] [address] [place] [address] Kaz Robledo MD [address] [place] [address] 10/24/2024 2:00 PM EDT Office Visit Dermatology [facility] 200 [place] [address] Mitchell Mack MD 200 [place] [address] Scheduled Procedures Name Priority Associated Diagnoses Date/Ti [...] Documents on File Type Date Recorded 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 Question Answer Comments Discussion of Advance Directives occurred with: Patient Care Teams Manager Beauty Relationship Specialty Start Date End Date Kaz Robledo MD [address] [place] [address] PCP - General Family Medicine 10/30/17 documented as of this encounter
--- OUTSIDE RECORDS SUMMARY | 2024-07-17 09:03 | External Medical Summary | Summary of Care ---
Author Name Unknown Organization [facility] Address [address] [place] [address] Phone [phone] Care Team Providers Care Foundation Director Name Role Phone Kaz Robledo MD Primary Care Provider [phone]- [phone] Encounter Details Date Type Department Care Team (Late st Contact Info) Description 06/06/2024 Telephone Cardiology, [facility] [address] [place] [address] Marcia Collins CRNP [address] [place] [address] Allergies Active Allergy Reactions Criticality Noted Date Comments Atorvastatin Muscle pain 12/11/2016 Bee Stings 02/21/1999 Hives,intense itching,edema Gabapentin 10/02/2023 "Couldn't handle it" documented as of this encounter (statuses as of 06/06/2024) Medications CALCIUM 500 MG PO TABS Take [...] x's per week. 30 g 4 02/05/20 Active Diclofenac Sodium 1 % External GelIndications:Acu [...] well, take twice a day 850 g 12/30/19 Active Additional Information Patient taking differently:17 [...] as of this encounter (statuses as of 06/06/2024) Active Problems Problem Noted Date Diagnosed Date Orthostatic hypotension 04/10/2024 Carotid stenosis, asymptomatic, right 12/19/2023 Personal history of AK (myocardial infarction) 0 10/20/2023 Overview (12/12/2023): 10/20/23 [...] with cardiology Continues cardiac rehab via [facility] rehab program Dyslipidemia, goal LDL below 100 04/15/2009 Overview (04/15/2009): Per Lipid Taxonomy. Hearing loss 07/09/2007 documented as of this encounter (statuses as of 06/06/2024) Resolved Problems Problem Noted Date Diagnosed Date [...] 09/03/2017 Genetic Sleep Disorder [facility] Other*[id number] 06/26/2011 12/08/2015 EXAMINATION OF PARTICIPANT I N CLINICAL TRIAL-Genomics 06/04/2009 08/20/2009 Overview (08/20/2009): Renamed Per Clinical Trials Billing Project. Study Titile: Genomic Markers for Patients with Cardiovascular Disease Project #[id number] PI: Radha Yepez MD Please call [phone] with study related questions GENOMICS CARDIO RESEARCH OTHER*[id number] 06/04/2009 06/13/2016 Overview (08/20/2009): Renamed Per Clinical Trials Billing Project. Study Titile: Genomic Markers for Patients with Cardiovascular Disease Project #[id number] PI: Radha Yepez MD Please call [phone] with study related questions Benign neoplasm of [...] as of this encounter (statuses as of 06/06/2024) Immunizations Name Administration Dates Next Due COVID-19 [...] Telephone Encounter - Marcia Collins CRNP - 06/06/2024 1:59 PM EST Thank you * Telephone Encounter - Praneeth Gabriel OSA - 06/06/2024 11:53 AM EST Appt notes has been updated to HD FU thank you. * Telephone Encounter - Marcia Collins CRNP - 06/06/2024 11:37 AM EST Just sending as an FYI Hospital discharge follow up needed: Admitted 06/05/2024 for Chest pain and NSTEMI Anticipated DC date: 06/07/24 or 06/08/24 Patient already has a follow up scheduled with me on 07/08/2024. Please keep that appointment, but make it a "hospital discharge follow up" Thank you, Marcia documented in this encounter Plan of Treatment Upcoming Encounters Date Type Department Care Team (Late st Contact Info) Description 06/23/2024 3:00 PM EST Office Visit Neurology [facility] [address] [place] [address] Darron Calvillo MD [address] [place] [facility] [place] [address] 06/26/2024 2:30 PM EST Home Visit [facility] [address] [address] Aron Schmid, GUS [address] [place] [address] 07/02/2024 11:00 AM EST Telemedicine Psychology Greg Coleman [address] [place] [phone] Aixa Matthew LCSW [address] [place] [address] 07/07/2024 11:30 AM EST Scheduled Telephone [facility], [facility] [address] [facility] [place] [address] Teresa Johnson, RDN [address] [facility] [place] [address] 07/08/2024 10:30 AM EST Office Visit Cardiology, [facility] [address] [place] [address] Marcia Collins CRNP [address] [facility] [place] [address] 07/28/2024 11:30 AM EDT Telemedicine Psychology [place] [address] [place] [address] Page John LCSW [address] [place] [address] 10/10/2024 1:00 PM EDT Office Visit [facility] [address] [place] [phone] Kaz Robledo MD [address] [place] [address] 10/24/2024 2:00 PM EDT Office Visit Dermatology [facility] [place] [address] [place] [address] Mitchell Mack MD [address] [place] [address] Scheduled Procedures Name Priority Associated Diagnoses Date/Ti [...] Documents on File Type Date Recorded Patient Program Associate Expl anation AZUL 04/22/2024 signed on 04/21 * Full Code (Latest Code Status on File) Date Activated Date Inactivated Comments 10/20/2023 10:03 AM 10/26/2023 1:07 AM This order reflects the patients wishes and were consensually agreed upon. Question Answer Comments Discussion of Advance Directives occurred with: Patient Care Teams Foundation Director Relationship Specialty Start Date End Date Kaz Robledo MD [address] [place] [address] PCP - General Family Medicine 03/05/17 documented as of this encounter
--- NOTE | 2024-07-17 09:16 | CT Scan Report ---
EXAM: CT cervical spine wo con CLINICAL HISTORY: fall TECHNIQUE: CT scan of the cervical spine was performed without the administration of intravenous contrast. Contiguous axial images were obtained from the skull base to the upper thoracic spine. Coronal and sagittal reformatted images were also reviewed. One of the following dose reduction techniques was utilized for this exam. Automated exposure control, adjustment of the mA and/or kV according to patient size, and use of iterative reconstruction. Total DLP 3511.61 mGy.cm COMPARISON: No previous studies are available for comparison. FINDINGS: Vertebrae: Straightened cervical curve. Multiple marginal bony hypertrophy. C5 lower end plate sclerosis with lucent area of likely schmorl's node. No evidence of acute fracture or dislocation. The cortical and trabecular bone patterns are normal. No signs of lytic or sclerotic lesions. Normal configuration of the posterior elements. Intervertebral Discs: Reduced intervertebral disc spaces. No calcifications or ossifications noted within the discs. Facet Joints: Mainly Left upper cervical facet joints arthropathy. No evidence of dislocation, or subluxation. Neural Foramina: Mainly C3-C4 bilateral neural foraminal narrowing. Prevertebral Soft Tissues: The prevertebral soft tissues are normal in thickness without evidence of mass or abnormal fluid collection. Additional Findings: No other significant findings are noted in the visualized soft tissue structures or bony elements. Apical mild paraseptal emphysema. Atheromatous calcifications of carotid and vertebral vessels. IMPRESSION: 1. Degenerative changes of cervical spine. 2. No evidence of acute fracture, or dislocation. Electronically signed by Devante Vyas 07-17-2024 09:15 AM
--- NOTE | 2024-07-17 10:26 | History & Physical Report ---
Date of Service July 17, 2024 Assessment & Plan (1) NSTEMI (non-ST elevated myocardial infarction): (2) Multiple vessel coronary artery disease: (3) Parkinson's disease: (4) Anxiety: (5) Depression: (6) Hyperlipidemia: (7) CAD (coronary artery disease): (8) Peripheral arterial disease: Plan The patient is a 79-year-old male with an extensive cardiac history including multivessel CAD, NSTEMI who presents to the ED on 07/17/2024 with complaints of syncopal episode Syncopal episode: recent constipation noted, episode occurred shortly after bowel movement Check orthostatic BPs, telemetry monitoring, follows with cardiology closely outpatient Recent echo with EF 55-60%, septal/inferior wall hypokinesis, moderate aortic valve sclerosis Continue current cardiac meds for now, could consider decreasing BB if Orthos are positive Leukocytosis: -WBC of 12 -sources include colitis 2/2 constipation vs. cystitis (noted on imaging) -biofire negative, noted infilitrates on CT chest but without symptoms Plan: -check UA -aggressive bowel regiment -hold abx for now Hx multivessel CAD Hx NSTEMI 06/27/24 HTN/HLD continue Toprol/Imdur/statin/repatha, ezetimibe Parkinson's disease: continue Sinemet, continue PT/OT Mood disorder: Continue SSRI, clonazepam A total of 60 minutes was spent on chart review/reviewing diagnostic data/discu ssion with consultants/facilitating plan of care Patient is a DNR/DNI DVT prophylaxis: Heparin subcu History of Present Illness Chief Complaint: Syncope Primary Care Provider: Kaz Robledo MD the patient is a 79-year-old male with a past medical history of multivessel CAD, [place], HLD, COPD, Parkinson's, HTN, mood disorder, recent NSTEMI July/2024 who presents to the ED on 07/17/2024 with Complaints of a syncopal episode. Patient reported just finishing using the bathroom at home. Reported he got up and felt warm and dizzy and fell to the ground for a few seconds. Patient's son heard the fall and found his father on the floor. Patient was able to get back up after a few minutes of resting. Patient reports missing a full day of meds yesterday 07/16/2024, likely contributing to symptoms. Denies any seizure-like activity. EMS was called at that time and the patient was brought here for further evaluation. Patient was discharged on 06/07/2024 after recent NSTEMI, patient was given 48 hours of heparin and continued on aspirin/Plavix/statin/Toprol and follows closely outpatient with cardiology. On arrival to the ED, labs remarkable for WBC 12.3, glucose 127 BioFire pending EKG with normal sinus rhythm in the 60s, no acute changes noted Cervical spine CT and head CT unremarkable Chest CTA showed: 1. No evidence of pulmonary embolism. 2. Dilated pulmonary trunk and right artery suggest pulmonary hypertension 3. Bilateral diffuse segmental areas of ground glass attenuation, which could be due to inflammatory/infectious etiology. Advice clinical correlation. 4. Mild bilateral apical paraseptal emphysema. 5. These findings are better appreciated by current CT. A/P CT showed: 1. Diffuse rectosegmoid and to lesser extent descending and segmental area of transverse colon mural thickening suggestive of acute colitis, follow up and laboratory assessment is advised, progressed. 2. Multiple Bilobar well-defined thin-walled simple cysts, stable. 3. Right renal few cysts largest exophytic cyst of Bosniak type I, stable. 4. Mild prostatomegaly noted, stable. 5. Diffuse aortoiliac atherosclerotic changes, stable. 6. Mild urinary bladder wall thickening may be due to underdistension/ cystitis, new finding. The patient will be admitted for further syncope workup Allergies Allergy/AdvReac Type Severity Reaction Status Date / Time bee venom protein (honey bee) Allergy Severe SWELLING, Verified 05/07/24 00:48 INTENSE ITCHING, HIVES gabapentin Allergy Unknown Unknown Verified 05/07/24 00:48 atorvastatin AdvReac Intermediate MUSCLE PAIN Verified 05/07/24 00:48 carbidopa [From Sinemet] AdvReac Intermediate Unknown/Family Verified 05/07/24 00:48 says only Sinemet, haven't tried Sinemet CR. levodopa [From Sinemet] AdvReac Intermediate Unknown/Family Verified 05/07/24 00:48 says only Sinemet, haven't tried Sinemet CR. Home Medications Medication Instructions Recorded Confirmed Type nitroglycerin 0.4 mg sublingual 0.4 mg sublingual DIRECTED PRN 09/13/13 03/13/25 History tablet (Nitrostat) Chest Pain #0 BTLS multivitamin 1 tab PO DAILY #0 tabs 09/20/14 07/17/24 History aspirin 81 mg tablet,delayed 81 mg PO QAM 90 days #90 tabs 04/19/17 07/17/24 History release (Pollo Low Dose Aspirin) coenzyme Q10 400 mg capsule (Co 400 mg PO DAILY 05/15/19 07/17/24 History Q-10) docusate sodium 100 mg capsule 100 mg PO DAILY PRN Constipation 05/15/19 07/17/24 History folic acid 400 mcg tablet 400 mcg PO QAM 05/15/19 07/17/24 History metoprolol succinate 25 mg 25 mg PO HS 05/15/19 07/17/24 History tablet,extended release 24 hr clonazepam 0.5 mg tablet (Klonopin) 0.5 mg PO Q12H PRN Anxiety #0 tabs 11/25/19 07/17/24 History ketoconazole 2 % topical cream 1 appln topical UD 11/25/19 07/17/24 History cholecalciferol (vitamin D3) 25 25 mcg PO UD 02/05/22 07/17/24 History mcg (1,000 unit) tablet (Vitamin D3) polyethylene glycol 3350 17 gram 17 g PO DAILY Constipation 02/05/22 07/17/24 History oral powder packet (Miralax) calcium carbonate 500 mg PO UD 04/24/22 07/17/24 History citalopram 20 mg tablet 20 mg PO QAM #0 tabs 12/14/22 07/17/24 History carbidopa ER 25 mg-levodopa 100 mg 1 tab PO BID 03/25/24 07/17/24 History tablet,extended release clopidogrel 75 mg tablet 75 mg PO QAM 03/25/24 07/17/24 History isosorbide mononitrate 60 mg 60 mg PO QAM #30 tabs 04/08/24 07/17/24 Rx tablet,extended release 24 hr diclofenac sodium 1 % topical gel 4 g topical QID 05/07/24 07/17/24 History evolocumab 140 mg/mL subcutaneous 140 mg subcut .Q14 DAYS 05/07/24 07/17/24 History pen injector (Neha Carter) ezetimibe 10 mg tablet 10 mg PO QAM 05/07/24 07/17/24 History fluocinonide 0.05 % topical 1 applic topical DAILY PRN Skin 05/07/24 07/17/24 History solution Irritation ketoconazole 2 % topical cream 1 applic topical .2-3 TIMES WEEKLY 05/07/24 07/17/24 History melatonin 3 mg tablet 6 mg PO HS 05/07/24 07/17/24 History triamcinolone acetonide 0.1 % 1 applic topical BID 05/07/24 07/17/24 History topical cream Past Med/Surg History Problem List NSTEMI (non-ST elevated myocardial infarction) SOB (shortness of breath) on exertion Parkinson's disease Elevated troponin I level (Acute) Chest pain (Acute) Anxiety Depression Hyperlipidemia CAD (coronary artery disease) Peripheral arterial disease Hypertension (Chronic) Medical History Mixed hyperlipidemia Multiple vessel coronary artery disease Atrial flutter Inguinal hernia Surgical History S/P tonsillectomy Family History Other Asthma Denies family history of Hypertension Social History Smoking Status: Never smoker Tobacco Type: Cigarettes Second Hand Exposure: No; Do You Dip or Chew Tobacco: No; Hx Alcohol Use: No Hx Substance Use: No Preferred Language: Maori Communication Ability: Effective Real Property Appraiser Required: No Beliefs That Will Affect Care: None Current Living Situation: Alone Feels Safe at Home: Yes Assistive Devices: None Review of Systems Review of Systems: All systems reviewed & are unremarkable except as noted in HPI & below Physical Exam Constitutional: WD/WN, vitals as above Eyes: PERRL, conjunctivae normal, anicteric sclerae ENMT: external ear and nose normal, oropharynx normal Neck: trachea midline, no thyromegaly Respiratory: normal respiratory effort, lungs clear to auscultation Cardiovascular: RRR, no murmur, no edema Gastrointestinal (Abdomen): normal bowel sounds, soft, nontender, no hepatosplenomegaly Musculoskeletal: no cyanosis or clubbing, extremities motor strength 5/5 Skin: no rashes, warm and dry Neurologic: PERRL, EOMI, accommodation nl, no face palsy, no dysarthria Lymphatic: no cervical or axillary lymphadenopathy Results & Data Results & Data Vital Signs (Past 12 Hours) Vital Signs Temp Pulse Resp BP Pulse Ox O2 Del Method 07/17/24 08:18 58 L 19 156/83 H 93 07/17/24 06:16 62 07/17/24 06:16 95 Room Air 07/17/24 06:14 95 Room Air 07/17/24 06:09 36.9 C 63 18 150/102 H 95 Laboratory Results -personally reviewed, slightly elevated leukocytosis 2/2 colitis vs. cystitis on imaging Diagnostic Findings Laboratory Results WBC 12.39 K/ul (4.8-10.8) H 07/17/24 06:15 RBC 4.89 M/uL (4.70-6.10) 07/17/24 06:15 Hgb 14.7 g/dl (14.0-18.0) 07/17/24 06:15 Hct 42.4 % (42.0-52.0) 07/17/24 06:15 MCV 86.7 fL (80.0-100.0) 07/17/24 06:15 MCH 30.1 pg (25.0-34.0) 07/17/24 06:15 MCHC 34.7 g/dL (32.0-36.0) 07/17/24 06:15 RDW Std Deviation 41.4 fL (36.4-46.3) 07/17/24 06:15 RDW Coeff of Lanre 13.3 % (11.5-14.5) 07/17/24 06:15 Plt Count 209 K/uL (130-400) 07/17/24 06:15 MPV 10.1 fL (9.4-12.4) 07/17/24 06:15 Immature Gran % (Auto) 0.2 % 07/17/24 06:15 Neut % (Auto) 81.9 % 07/17/24 06:15 Lymph % (Auto) 9.8 % 07/17/24 06:15 [place] % (Auto) 6.8 % 07/17/24 06:15 Eos % (Auto) 0.7 % 07/17/24 06:15 Baso % (Auto) 0.6 % 07/17/24 06:15 Neut # (Auto) 10.15 K/uL (1.40-6.50) H 07/17/24 06:15 Lymph # (Auto) 1.21 K/uL (1.20-3.40) 07/17/24 06:15 [place] # (Auto) 0.84 K/uL (0.11-0.59) H 07/17/24 06:15 Eos # (Auto) 0.09 K/uL (0.00-0.50) 07/17/24 06:15 Baso # (Auto) 0.07 K/uL (0.00-0.20) 07/17/24 06:15 Immature Gran # (Auto) 0.03 K/uL (0.01-0.20) 07/17/24 06:15 Sodium 138 mmol/L (136-145) 07/17/24 06:15 Potassium 4.0 mmol/L (3.5-5.1) 07/17/24 06:15 Chloride 105 mmol/L (98-107) 07/17/24 06:15 Carbon Dioxide 25 mmol/L (21-32) 07/17/24 06:15 Anion Gap 8 (3-11) 07/17/24 06:15 BUN 20 mg/dl (6-23) 07/17/24 06:15 Creatinine 0.95 mg/dl (0.6-1.4) 07/17/24 06:15 Est Cr Clr Drug Dosing 71.7 ml/min 07/17/24 06:15 eGFR 81.42 07/17/24 06:15 BUN/Creatinine Ratio 21.1 (10-20) H 07/17/24 06:15 Glucose 127 mg/dl (70-99(Fasting)) H 07/17/24 06:15 Calcium 9.4 mg/dl (8.6-10.3) 07/17/24 06:15 Magnesium 2.1 mg/dl (1.7-2.4) 07/17/24 06:15 Total Bilirubin 0.6 mg/dl (0.2-1.0) 07/17/24 06:15 AST 15 U/L (13-39) 07/17/24 06:15 ALT 17 U/L (7-52) 07/17/24 06:15 Alkaline Phosphatase 80 U/L (34-104) 07/17/24 06:15 Troponin I High Sens 8.1 pg/ml (0-20) 07/17/24 06:15 Total Protein 6.6 gm/dl (6.0-8.3) 07/17/24 06:15 Albumin 4.2 gm/dl (3.4-5.0) 07/17/24 06:15 Globulin 2.4 gm/dl (2.5-4.0) L 07/17/24 06:15 Albumin/Globulin Ratio 1.8 (0.9-2) 07/17/24 06:15 Impressions Abdomen/Pelvis CT 07/17/24 06:59 EXAM: CT abd pelvis IV con only CLINICAL HISTORY: syncope, bloody stool TECHNIQUE: Contrast-enhanced CT of the abdomen and pelvis was performed, with the following protocol: axial images with, and reconstructed coronal and sagittal images. Intravenous contrast was administered (112ml opti 320). One of the following dose reduction techniques was utilized for this exam: Automated exposure control, adjustment of the mA and/or kV according to patient size, and use of iterative reconstruction. COMPARISON: CT dated 05/07/2024. FINDINGS: There is diffuse recto-segmoid circumferential mural thickening noted with submucosal edema and stranding of the surrounding fat planes, denoting acute colitis. Mild wall thickening also noted at the descending colon and segment of transverse colon. Multiple colonic diverticulosis with no diverticulitis noted. Abdomen: Liver: Average in size, shape, and density. Multiple Bilobar well-defined thin-walled cystic lesions were noted with no significant post-contrast enhancement, largest measures 4x3 cm. No focal lesions, cysts, or masses were identified. Hepatic vasculature and biliary ducts are unremarkable. Gallbladder and Biliary System: The gallbladder is normal in size and shape. No wall thickening, pericholecystic fluid, or gallstones were identified. The common bile duct is normal in caliber without dilation. Pancreas: Pancreatic head, body, and tail are visualized and appear normal in size and density. No pancreatic masses or calcifications were noted. The pancreatic duct is not dilated. Spleen: Normal in size, shape, and density. No splenic lesions or masses were identified. Appendix: The appendix is normal in size without molly appendiceal fat stranding, and without an appendicolith. No evidence of appendiceal abscess or perforation. Kidneys and Adrenal Glands: Right renal few cysts, largest upper pole cortical cyst noted measuring about 7.5x6.3 cm. Both kidneys are normal in size, shape, and position. Cortical thickness is within normal limits. No renal calculi or hydronephrosis. Adrenal glands are unremarkable, with no evidence of masses or hyperplasia. Diffuse aortoiliac atherosclerotic changes noted. Pelvis: Urinary Bladder: Normal in contour with mild circumferential increase wall thickness measures 5.5 mm. No intraluminal lesions were identified. Prostate: Mildly enlarged in size with concretions of calcifications noted. No focal lesions or masses were identified. Seminal Vesicles: Normal in size and appearance. No abnormalities were noted. Rectum and Sigmoid Colon: Normal wall thickness and no evidence of mass. Peritoneal and Retroperitoneal Structures: No free fluid or abnormal fluid collections were identified within the abdomen or pelvis. No lymphadenopathy was noted. Bowel: The visualized bowel loops are normal in caliber and appearance. No evidence of bowel obstruction or wall thickening. Bones and Soft Tissues: Moderate spondylosis of the lumbar spine noted. The pelvic bones and soft tissues are unremarkable. No fractures or abnormal masses were identified. IMPRESSION: 1. Diffuse rectosegmoid and to lesser extent descending and segmental area of transverse colon mural thickening suggestive of acute colitis, follow up and laboratory assessment is advised, progressed. 2. Multiple Bilobar well-defined thin-walled simple cysts, stable. 3. Right renal few cysts largest exophytic cyst of Bosniak type I, stable. 4. Mild prostatomegaly noted, stable. 5. Diffuse aortoiliac atherosclerotic changes, stable. 6. Mild urinary bladder wall thickening may be due to underdistension/ cystitis, new finding. Electronically signed by Devante Vyas 07-17-2024 08:[address] 07/17/24 06:59 EXAM: CT cervical spine wo con CLINICAL HISTORY: fall TECHNIQUE: CT scan of the cervical spine was performed without the administration of intravenous contrast. Contiguous axial images were obtained from the skull base to the upper thoracic spine. Coronal and sagittal reformatted images were also reviewed. One of the following dose reduction techniques was utilized for this exam. Automated exposure control, adjustment of the mA and/or kV according to patient size, and use of iterative reconstruction. Total DLP 3511.61 mGy.cm COMPARISON: No previous studies are available for comparison. FINDINGS: Vertebrae: Straightened cervical curve. Multiple marginal bony hypertrophy. C5 lower end plate sclerosis with lucent area of likely schmorl's node. No evidence of acute fracture or dislocation. The cortical and trabecular bone patterns are normal. No signs of lytic or sclerotic lesions. Normal configuration of the posterior elements. Intervertebral Discs: Reduced intervertebral disc spaces. No calcifications or ossifications noted within the discs. Facet Joints: Mainly Left upper cervical facet joints arthropathy. No evidence of dislocation, or subluxation. Neural Foramina: Mainly C3-C4 bilateral neural foraminal narrowing. Prevertebral Soft Tissues: The prevertebral soft tissues are normal in thickness without evidence of mass or abnormal fluid collection. Additional Findings: No other significant findings are noted in the visualized soft tissue structures or bony elements. Apical mild paraseptal emphysema. Atheromatous calcifications of carotid and vertebral vessels. IMPRESSION: 1. Degenerative changes of cervical spine. 2. No evidence of acute fracture, or dislocation. Electronically signed by Devante Vyas 07-17-2024 09:15 AM Chest CTA 07/17/24 06:59 EXAM: CT angio chest PE protocol CLINICAL HISTORY: PE, syncope, fall. TECHNIQUE: Contiguous 3.[address] angiographic images of the chest were acquired with the administration of intravenous contrast. Coronal and sagittal reconstructions were obtained. 112ml Optiray 320 was administered for post-contrast images. One of these 3D techniques was utilized: Maximum Intensity Pixel (MIP), 3D Reconstructed Images, Volume Rendered Images, Surface Shaded Rendering. One of the following dose reduction techniques were utilized for this exam: Automated exposure control, adjustment of the mA and/or kV according to patient size, and use of iterative reconstruction. COMPARISON: last chest xray dated 06/05/2024. FINDINGS: Pulmonary Arteries: The pulmonary trunk measures 2.9cm, right pulmonary artery measures 2.5cm suggesting pulmonary arterial hypertension. Pulmonary arteries are normally opacified. No evidence of pulmonary embolism. No stenosis or filling defects. Aorta: Mild atherosclerotic changes. The thoracic aorta is normal in caliber. No evidence of aneurysm, or dissection. Aortic arch and descending thoracic aorta are unremarkable. Superior Vena Cava (SVC) and Inferior Vena Cava (IVC): Normal opacification and caliber. No evidence of thrombus or obstruction. Mediastinum: No mediastinal mass or lymphadenopathy. Normal appearance of the thymus. Heart: Normal size and morphology of the heart. No pericardial effusion. Lungs: Bilateral diffuse ground glass attenuation with associated reticular thickening and thickened parenchymal bands. Mild posterior subpleural reticular changes, likely positional. Mild bilateral apical paraseptal emphysema. No evidence masses. No pleural effusion or thickening. Bones: No fractures or lytic/sclerotic lesions of the visualized bony structures. Normal alignment and bone density. Soft Tissues: Normal appearance of the visualized soft tissues. No abnormal masses or fluid collections. Upper abdomen show multiple hepatic hypodense lesions, could be cysts. IMPRESSION: 1. No evidence of pulmonary embolism. 2. Dilated pulmonary trunk and right artery suggest pulmonary hypertension 3. Bilateral diffuse segmental areas of ground glass attenuation, which could be due to inflammatory/infectious etiology. Advice clinical correlation. 4. Mild bilateral apical paraseptal emphysema. 5. These findings are better appreciated by current CT. Electronically signed by Devante Vyas 07-17-2024 08:[address] 07/17/24 06:59 EXAM: CT head/brain wo con CLINICAL HISTORY: syncope, fall TECHNIQUE: Axial non-contrast CT scan of the brain was performed from the skull base to the high parietal region. One of the following dose reduction techniques were utilized for this exam: Automated exposure control, adjustment of the mA and/or kV according to patient size, use of iterative reconstruction. COMPARISON: Compared to previous study done at 06/05/2024. FINDINGS: Brain Parenchyma: Normal attenuation of the cerebral hemispheres, cerebellum, and brainstem. No evidence of acute infarct, hemorrhage, or mass effect. No abnormal areas of hypo- or hyperattenuation. Ventricular System: Mild dilatation of the supratentorial ventricular system. No evidence of hydrocephalus. Subarachnoid Spaces: Widened cortical sulci and prominent sylvian fissures. No evidence of subarachnoid hemorrhage or extra-axial fluid collections. Cerebellum and Brainstem: Normal size and signal. No masses, lesions, or areas of abnormal signal. Orbits: Normal appearance of the globes, optic nerves, and extraocular muscles. No evidence of orbital masses or abnormal signal. Sinuses: Clear paranasal sinuses. No evidence of sinusitis or mucosal thickening. Mastoid Air Cells: Clear mastoid air cells. No evidence of mastoiditis. Skull: Normal skull morphology. IMPRESSION: Mild age matched brain involutional changes (stable). Electronically signed by Devante Vyas 07-17-2024 08:31 AM Supervising Physician Co-Signing Physician Notes Patient seen and examined at bedside. Patient doing ok today. States he went from sitting to standing, got lightheaded, and fell. States he missed a day of medications. Also states not hydrated. Likely 2/2 orthostatic hypotension from dehydration, Parkinsons, potentially beta blockade, missing medications. Less likely component of bradycardia, less likely arrhythmia, less likely neurologic. Patient feels improved. Cardiology consult given complex cardiac history and noted bradycardia, encourage PO intake. Reordered home medications. Check UA, aggressive bowel regiment. Hold abx given lack of infectious symptoms. (3) Parkinson's disease Dyskinesia presence: unspecified whether dyskinesia Fluctuating manifestations: unspecified whether manifestations fluctuate Qualified Code(s): G20.A1 - Parkinson's disease without dyskinesia, without mention of fluctuations
[2024-07-17] MEDS: CARBIDOPA/LEVODOPA 25/100MG EXT REL TAB PO ONE (10:33)
[2024-07-17] MEDS: ISOSORBIDE MONO EXTENDED REL 60 MG TABCR PO ONE (10:33)
[2024-07-17 11:16] LABS: Adenovirus PCR Not Detected (NotDetected); Bordetella parapertussis PCR Not Detected (NotDetected); Bordetella pertussis PCR Not Detected (NotDetected); Chlamydia pneumoniae PCR Not Detected (NotDetected); Coronavirus 229E PCR Not Detected (NotDetected); Coronavirus CoV-2 (COVID19)PCR Not Detected (NotDetected); Coronavirus HKU1 PCR Not Detected (NotDetected); Coronavirus NL63 PCR Not Detected (NotDetected); Coronavirus OC43PCR Not Detected (NotDetected); Human Metapneumovirus PCR Not Detected (NotDetected); Influenza A PCR Not Detected (NotDetected); Influenza B PCR Not Detected (NotDetected); Mycoplasma pneumoniae PCR Not Detected (NotDetected); Parainfluenza Virus 1 PCR Not Detected (NotDetected); Parainfluenza Virus 2 PCR Not Detected (NotDetected); Parainfluenza Virus 3 PCR Not Detected (NotDetected); Parainfluenza Virus 4 PCR Not Detected (NotDetected); Respiratory Syncytial VirusPCR Not Detected (NotDetected); Rhinovirus/Enterovirus PCR Not Detected (NotDetected)
--- NOTE | 2024-07-17 11:51 | Cardiology Consultation ---
Date of Consultation July 17, 2024 Assessment & Plan (1) Syncope: (2) Orthostatic hypotension: (3) ASCVD (arteriosclerotic cardiovascular disease): (4) Parkinson's disease: Plan Syncope. History most suggestive of orthostatic hypotension secondary to volume depletion, Parkinson's disease with recent titration of carbidopa levodopa, possible cardiac medications. * Increase free water intake * Discontinue furosemide if taking (furosemide 20 mg every other day noted in documentation dated 07/08, declined by the patient) * Utilize knee high compression stockings, on in the morning and off in the PM * Educate on physical counter-maneuvers * Defer reduction in carbidopa levodopa dosing to Neurology. * Risks of midodrine appear greater than the benefit. ASCVD. EKG without acute change. High-sensitivity troponin negative x 1. Patient with known severe inoperable CAD. Recommend continued medical management - aspirin, clopidogrel, metoprolol succinate 25 mg/day, isosorbide mononitrate 60 mg/day, as needed sublingual nitroglycerin. Hypertension, labile, acceptable. See above. If ongoing orthostatic hypotension noted despite the above would reduce isosorbide dosing to 30 mg/day initially. Dyslipidemia. Intolerant to statin. Continue ezetimibe 10 mg/day and PCSK9 inhibitor therapy (Repatha). Supervising Physician Co-Signing Physician Notes Patient seen and personally examined. Full assessment and plan as outlined by advanced provider above. Care and management discussed and personally endorsed 79-year-old male with complex cardiac disease but presents following a near syncopal event post defecation. Notes struggling with constipation and subsequent laxative induced diarrhea. Large bowel movement this morning with subsequent near syncopal spell/lightheaded spell on standing immediately post. No acute loss of consciousness chest pains, tachypalpitations. Impression: Orthostatic/vagally mediated near syncope post defecation. No findings to suggest acute cardiac arrhythmia or coronary syndrome History of Present Illness Reason for Consultation: Syncope Requesting Physician: [facility] Attending Physician: [facility] History of Present Illness Landen Camacho is a 79-year-old male who is being seen at the request of [facility]. Reason for consultation is syncope. History notable for Parkinson's disease (carbidopa levodopa increased from twice per day to 3 times per day 2 weeks ago) and severe multivessel coronary artery disease detailed below. Patient hospitalized at [facility] June 05, 2024 to June 08, 2024 after presenting to the ER with chest pain, NSTEMI managed medically Patient describes being "all stuffed up" yesterday, taking MiraLAX, stool softener, and another laxative yesterday with resultant significant bowel movement last night. This morning around 5 AM the patient went to the bathroom where he was on the commode for awhile, with diarrhea. He notes standing up off of the commode and grabbing the shower bar, becoming weak, warm, and dizzy before falling to the ground. His son heard the fall and hollered for his dad who responded promptly. The event was not witnessed. No tongue biting. No incontinence. After some difficulty was able to exit the bathroom and crawl in the hallway. EMS was summoned with patient transported to the [facility] emergency room for further evaluation and treatment. Patient notes significant family stressors with increased anxiety. He also notes missing some medications yesterday afternoon and again this morning with the above event. EKG on presentation without acute change, revealing normal sinus rhythm at 66 bpm with sinus arrhythmia, left axis deviation, LVH. High- sensitivity troponin negative x 1, 8.1 pg/mL. CTA of the chest negative for PE, negative for dissection. Telemetry: Sinus/sinus bradycardia with heart rates in the 50s and 60s, occasional atrial ectopy. Baseline artifact; no overt atrial fibrillation/flutter. Patient denies chest pain, palpitations, increased shortness of breath, orthopnea, PND, or peripheral edema. Past Medical and Surgical History Parkinson's disease, carbidopa levodopa increased to 3 times per day by neurology 2 weeks ago Severe multivessel coronary artery disease with diagnostic cardiac catheterization performed on October 22, 2023 demonstrating 100% mid LAD stenosis, 100% proximal RCA stenosis, not severely calcified 80% mid left circumflex stenosis. Patient declined for CT surgery. High risk PCI recommended in the event of a STEMI, otherwise medical management advised Hypertension Dyslipidemia with intolerance to statins Carotid occlusive disease Peripheral arterial disease Subarachnoid/subdural hemorrhage Erectile dysfunction Depression Cataract extraction Colonoscopy with polypectomies Arthroscopic left knee surgery Tonsillectomy Inguinal hernia repair Family History: Positive for CAD in father. Mother with old age. Social History: Reformed smoker, 25 pack years, quit circa 2022. No smokeless tobacco history. No alcohol. No illegal drug use. , on hospice. Retired, [employer]. 2 children. Son and grandson present at bedside. Allergies Allergy/AdvReac Type Severity Reaction Status Date / Time bee venom protein (honey bee) Allergy Severe SWELLING, Verified 05/07/24 00:48 INTENSE ITCHING, HIVES gabapentin Allergy Unknown Unknown Verified 05/07/24 00:48 atorvastatin AdvReac Intermediate MUSCLE PAIN Verified 05/07/24 00:48 carbidopa [From Sinemet] AdvReac Intermediate Unknown/Family Verified 05/07/24 00:48 says only Sinemet, haven't tried Sinemet CR. levodopa [From Sinemet] AdvReac Intermediate Unknown/Family Verified 05/07/24 00:48 says only Sinemet, haven't tried Sinemet CR. Home Medications Medication Instructions Recorded Confirmed Type nitroglycerin 0.4 mg sublingual 0.4 mg sublingual DIRECTED PRN 01/17/13 07/17/24 History tablet (Nitrostat) Chest Pain #0 BTLS multivitamin 1 tab PO DAILY #0 tabs 09/20/14 07/17/24 History aspirin 81 mg tablet,delayed 81 mg PO QAM 90 days #90 tabs 04/19/17 07/17/24 History release (Pollo Low Dose Aspirin) coenzyme Q10 400 mg capsule (Co 400 mg PO DAILY 05/15/19 07/17/24 History Q-10) docusate sodium 100 mg capsule 100 mg PO DAILY PRN Constipation 05/15/19 07/17/24 History folic acid 400 mcg tablet 400 mcg PO QAM 05/15/19 07/17/24 History metoprolol succinate 25 mg 25 mg PO HS 05/15/19 07/17/24 History tablet,extended release 24 hr clonazepam 0.5 mg tablet (Klonopin) 0.5 mg PO Q12H PRN Anxiety #0 tabs 11/25/19 07/17/24 History ketoconazole 2 % topical cream 1 appln topical UD 11/25/19 07/17/24 History cholecalciferol (vitamin D3) 25 25 mcg PO UD 02/05/22 07/17/24 History mcg (1,000 unit) tablet (Vitamin D3) polyethylene glycol 3350 17 gram 17 g PO DAILY Constipation 02/05/22 07/17/24 History oral powder packet (Miralax) calcium carbonate 500 mg PO UD 04/24/22 07/17/24 History citalopram 20 mg tablet 20 mg PO QAM #0 tabs 12/14/22 07/17/24 History carbidopa ER 25 mg-levodopa 100 mg 1 tab PO BID 03/25/24 07/17/24 History tablet,extended release clopidogrel 75 mg tablet 75 mg PO QAM 03/25/24 07/17/24 History isosorbide mononitrate 60 mg 60 mg PO QAM #30 tabs 04/08/24 07/17/24 Rx tablet,extended release 24 hr diclofenac sodium 1 % topical gel 4 g topical QID 05/07/24 07/17/24 History evolocumab 140 mg/mL subcutaneous 140 mg subcut .Q14 DAYS 05/07/24 07/17/24 History pen injector (Neha Carter) ezetimibe 10 mg tablet 10 mg PO QAM 05/07/24 07/17/24 History fluocinonide 0.05 % topical 1 applic topical DAILY PRN Skin 05/07/24 07/17/24 History solution Irritation ketoconazole 2 % topical cream 1 applic topical .2-3 TIMES WEEKLY 05/07/24 07/17/24 History melatonin 3 mg tablet 6 mg PO HS 05/07/24 07/17/24 History triamcinolone acetonide 0.1 % 1 applic topical BID 05/07/24 07/17/24 History topical cream Patient History Medical History Mixed hyperlipidemia Multiple vessel coronary artery disease Atrial flutter Inguinal hernia Surgical History S/P tonsillectomy Family History Other Asthma Denies family history of Hypertension Social History Smoking Status: Never smoker Tobacco Type: Cigarettes Second Hand Exposure: No; Do You Dip or Chew Tobacco: No; Hx Alcohol Use: No Hx Substance Use: No Preferred Language: [place] Communication Ability: Effective Animal Groomer Required: No Beliefs That Will Affect Care: None Current Living Situation: Alone Feels Safe at Home: Yes Assistive Devices: None Review of Systems Review of Systems: Complete Review of Systems is as stated above, negative, or noncontributory Physical Exam Physical Exam: General: A&Ox3. NAD. HENT: Normocephalic. Atraumatic. Eyes: PER. Conjunctiva pink, sclera clear. Neck: No JVD. Heart: RRR, 60 bpm. Grade II/ systolic murmur. No diastolic murmur. PMI is nondisplaced. Lungs: Clear to auscultation anteriorly. Abdomen: +BS. Soft. Nontender. No masses or organomegaly. Extremities: No clubbing, cyanosis, or edema. Neuro: Tremor. No focal deficits. Pulses: Posterior tibial=1/4. Results & Data Vital Signs (Past 12 Hours) Vital Signs Temp Pulse Pulse Resp BP BP Pulse Ox 07/17/24 11:37 60 18 114/64 96 07/17/24 10:35 57 L 18 152/77 H 94 07/17/24 08:18 58 L 19 156/83 H 93 07/17/24 06:16 62 07/17/24 06:16 95 07/17/24 06:14 95 07/17/24 06:09 36.9 C 63 18 150/102 H 95 O2 Del Method 07/17/24 11:37 Room Air 07/17/24 10:35 Room Air 07/17/24 08:18 07/17/24 06:16 07/17/24 06:16 Room Air 07/17/24 06:14 Room Air 07/17/24 06:09 Laboratory Results Cardiac Enzymes 07/17/24 Range/Units 06:15 AST 15 (13-39) U/L Troponin I High Sens 8.1 (0-20) pg/ml CBC 07/17/24 Range/Units 06:15 WBC 12.39 H (4.8-10.8) K/ul RBC 4.89 (4.70-6.10) M/uL Hgb 14.7 (14.0-18.0) g/dl Hct 42.4 (42.0-52.0) % Plt Count 209 (130-400) K/uL Neut # (Auto) 10.15 H (1.40-6.50) K/uL Lymph # (Auto) 1.21 (1.20-3.40) K/uL [place] # (Auto) 0.84 H (0.11-0.59) K/uL Eos # (Auto) 0.09 (0.00-0.50) K/uL Baso # (Auto) 0.07 (0.00-0.20) K/uL Comprehensive Metabolic Panel 07/17/24 Range/Units 06:15 Sodium 138 (136-145) mmol/L Potassium 4.0 (3.5-5.1) mmol/L Chloride 105 (98-107) mmol/L Carbon Dioxide 25 (21-32) mmol/L BUN 20 (6-23) mg/dl Creatinine 0.95 (0.6-1.4) mg/dl Glucose 127 H (70-99(Fasting)) mg/dl Calcium 9.4 (8.6-10.3) mg/dl AST 15 (13-39) U/L ALT 17 (7-52) U/L Alkaline Phosphatase 80 (34-104) U/L Total Protein 6.6 (6.0-8.3) gm/dl Albumin 4.2 (3.4-5.0) gm/dl Intake and Output 07/16/24 07/17/24 07/17/24 22:59 06:59 14:59 Other: Weight 91.5 kg Weight Measurement Method Built in [facility] Diagnostic Findings June 05, 2024 TTE: Normal left ventricular systolic function. EF 55 to 60%. Moderate sized septal and inferior wall motion abnormality with hypokinesis to akinesis of the segments. Moderate focal calcification of noncoronary aortic valve cusp. Moderate aortic valve sclerosis without significant aortic valve stenosis. (4) Parkinson's disease Dyskinesia presence: unspecified whether dyskinesia Fluctuating manifestations: unspecified whether manifestations fluctuate Qualified Code(s): G20.A1 - Parkinson's disease without dyskinesia, without mention of fluctuations
[2024-07-17] MEDS: DOCUSATE SODIUM/SENNA 50/8.6MG TAB PO SCH (12:08)
[2024-07-17] MEDS: bisacodyL 10 MG SUPP PR STA (12:17)
[2024-07-17] MEDS: POLYETHYLENE (MIRALAX) 17 GM PACK PO SCH (12:17)
[2024-07-17] MEDS ORDERED: clonazePAM 0.5 MG TAB PO PRN (13:51)
[2024-07-17] MEDS ORDERED: ACETAMINOPHEN 325 MG TAB PO PRN (13:51)
[2024-07-17] MEDS: CHOLECALCIFEROL 25 MCG (1000 UNITS) TAB PO SCH (14:51)
[2024-07-17] MEDS: CALCIUM CARBONATE 1250MG TAB PO SCH (14:51)
[2024-07-17] MEDS: LACTATED RINGER'S 1,000 ML IV SCH (16:48)
[2024-07-17] MEDS: CARBIDOPA/LEVODOPA 25/100MG EXT REL TAB PO SCH (20:48)
[2024-07-17] MEDS: MELATONIN 3 MG TAB PO SCH (20:48)
[2024-07-17] MEDS: HEPARIN SOD 5,000 UNIT/0.5 ML VIAL SQ SCH (20:48)
[2024-07-17] MEDS: METOPROLOL SUCC 25MG EXT REL TAB PO SCH (20:49)
--- NOTE | 2024-07-18 05:27 | Electrocardiogram Report ---
Test Reason : Blood Pressure : */* mmHG Vent. Rate : 66 BPM Atrial Rate : 66 BPM P-R Int : 176 ms QRS Dur : 96 ms QT Int : 410 ms P-R-T Axes : -19 -53 14 degrees QTcB Int : 429 ms Normal sinus rhythm with sinus arrhythmia Left axis deviation Moderate voltage criteria for LVH, may be normal variant ( R in aVL , Faisal product ) Abnormal ECG When compared with ECG of 06-Jun-2024 05:14, No significant change was found Confirmed by Alphonso Quinn ([id number]) on 07/18/2024 5:27:19 AM Referred By: Confirmed By: Alphonso Quinn
[2024-07-18 07:38] LABS: BUN Creatinine Ratio 20.4 (10-20); Creatinine Clr Calc Pharmacy 62.4 ml/min; Potassium 4.3 mmol/L (3.5-5.1)
[2024-07-18] MEDS: ASPIRIN 81 MG ECTAB PO SCH (08:48)
[2024-07-18] MEDS: CITALOPRAM 20 MG TAB PO SCH (08:48)
[2024-07-18] MEDS: EZETIMIBE 10 MG TAB PO SCH (08:49)
[2024-07-18] MEDS: CLOPIDOGREL BISULFATE 75 MG TAB PO SCH (08:49)
[2024-07-18] MEDS: POLYETHYLENE (MIRALAX) 17 GM PACK PO SCH (08:50)
[2024-07-18 09:06] LABS: Appearance Urine Clear (Clear); Bacteria Urine Automated None Seen (None Seen); Bilirubin Urine Negative (Negative); Blood Urine Negative (Negative); Cast Urine Automated 0-2 /lpf (0-2); Color Urine Dark Yellow; Epithelial Cell Urine Auto 0-2 /hpf (0-2); Glucose Urine UA Negative (Negative); Ketones Urine Trace (Negative); Leukocyte Esterase Urine Trace (Negative); Nitrite Urine Negative (Negative); Protein Urine Trace (Negative); Specific Gravity Urine 1.041 (1.000-1.030); Urobilinogen Urine Negative (Negative)
[2024-07-18 09:49] LABS: Hematocrit (blood only) 36.8 % (42.0-52.0); Hemoglobin 12.4 g/dl (14.0-18.0); Mean Corpuscular Hemoglobin 30.2 pg (25.0-34.0); Mean Corpuscular Hgb Conc 33.7 g/dL (32.0-36.0); Mean Corpuscular Volume 89.5 fL (80.0-100.0); Mean Platelet Volume 10.2 fL (9.4-12.4); Platelet Count 190 K/uL (130-400); RDW Coefficient of Variation 13.8 % (11.5-14.5); RDW Standard Deviation 44.7 fL (36.4-46.3); Red Blood Count 4.11 M/uL (4.70-6.10); White Blood Count 8.07 K/ul (4.8-10.8)
[2024-07-18 09:54] LABS: Magnesium 2.1 mg/dl (1.7-2.4)
[2024-07-18] MEDS: ISOSORBIDE MONO EXTENDED REL 60 MG TABCR PO SCH (10:13)
--- NOTE | 2024-07-18 10:19 | Cardiology Progress Note ---
Date of Service July 18, 2024 Assessment & Plan (1) Syncope: (2) Orthostatic hypotension: (3) ASCVD (arteriosclerotic cardiovascular disease): (4) Parkinson's disease: Plan Syncope. History most suggestive of orthostatic hypotension secondary to volume depletion, Parkinson's disease with recent titration of carbidopa levodopa, possible cardiac medications. * Increase free water intake * Discontinue furosemide if taking (furosemide 20 mg every other day noted in documentation dated 07/08, declined by the patient) * Utilize knee high compression stockings, on in the morning and off in the PM * Educate patient on physical counter-maneuvers * Defer reduction in carbidopa levodopa dosing to Neurology. * Risks of midodrine appear greater than the benefit. ASCVD. EKG without acute change. High-sensitivity troponin negative x 1. Patient with known severe inoperable CAD. Recommend continued medical management - aspirin, clopidogrel, metoprolol succinate 25 mg/day, isosorbide mononitrate 60 mg/day, as needed sublingual nitroglycerin. Hypertension, labile, acceptable. See above. If ongoing orthostatic hypotension noted despite the above would reduce isosorbide dosing to 30 mg/day initially. Dyslipidemia. Intolerant to statin. Continue ezetimibe 10 mg/day and PCSK9 inhibitor therapy (Repatha). Please contact with any questions or concerns Admission and Anticipated Discharge Date Admission Date: July 17, 2024 Supervising Physician Co-Signing Physician Notes Patient was seen and personally examined. Assessment and plan as outlined above. Care and management discussed personally and recommendations endorsed. 79-year-old male suffered post defecation near syncope likely combination of orthostatic hypotension and vasovagal event. No evidence of hemodynamic instability since hospitalization no evidence of acute coronary syndrome. Possible precipitated by change in Parkinson's medications but would not reduce. Continue current therapies as prescribed No contraindications from cardiac standpoint to discharge Discussed in detail with patient and daughter. Fall precautions and orthostasis precautions discussed Subjective Patient seen and examined. Chart, medications, telemetry reviewed. No issues overnight. Feeling well. Anxious to get up and move around. No chest pain, palpitations, shortness of breath, orthopnea, dizziness, weakness or near syncope. Telemetry: Sinus in the 60s, currently 66 bpm. Review of Systems Review of Systems: Complete Review of Systems is as stated above, negative, or noncontributory Physical Exam Physical Exam: General: A&Ox3. NAD. HENT: Normocephalic. Atraumatic. Eyes: PER. Conjunctiva pink, sclera clear. Neck: No JVD. Heart: RRR, 66 bpm. Grade II/ systolic murmur. Lungs: Clear to auscultation anteriorly. Abdomen: +BS. Soft. Nontender. No masses or organomegaly. Extremities: No clubbing, cyanosis, or edema. Neuro: Tremor. No focal deficits. Pulses: Posterior tibial=1/4. Results & Data Vital Signs (Past 12 Hours) Vital Signs Temp Pulse Pulse Resp BP BP Pulse Ox 07/18/24 09:00 59 L 07/18/24 08:03 36.6 C 61 18 138/71 93 07/18/24 03:09 36.9 C 60 18 136/73 92 07/17/24 23:00 36.8 C 57 L 18 136/72 95 O2 Del Method 07/18/24 09:00 07/18/24 08:03 Room Air 07/18/24 03:09 Room Air 07/17/24 23:00 Room Air Laboratory Results CBC 07/18/24 Range/Units 07:06 WBC 8.07 (4.8-10.8) K/ul RBC 4.11 L (4.70-6.10) M/uL Hgb 12.4 L (14.0-18.0) g/dl Hct 36.8 L (42.0-52.0) % Plt Count 190 (130-400) K/uL Comprehensive Metabolic Panel 07/18/24 Range/Units 07:03 Sodium 137 (136-145) mmol/L Potassium 4.3 (3.5-5.1) mmol/L Chloride 104 (98-107) mmol/L Carbon Dioxide 28 (21-32) mmol/L BUN 22 (6-23) mg/dl Creatinine 1.08 (0.6-1.4) mg/dl Glucose 123 H (70-99(Fasting)) mg/dl Calcium 9.0 (8.6-10.3) mg/dl Intake and Output 07/17/24 07/18/24 07/18/24 22:59 06:59 14:59 Intake Total 1000 / 999 Output Total Balance - 1000 / 1000 Intake: IV 1000 / 1000 Lactated Ringer's 1,000 ml @ 80 1000 / 1000 mls/hr IV .[id number] PHUONG Rx#: [id number] Output: # Bowel Movements Other: # Unmeasured Voids 1 Weight 92.9 kg Weight Measurement Method Built in [facility] (4) Parkinson's disease Dyskinesia presence: unspecified whether dyskinesia Fluctuating manifestations: unspecified whether manifestations fluctuate Qualified Code(s): G20.A1 - Parkinson's disease without dyskinesia, without mention of fluctuations
--- NOTE | 2024-07-18 12:58 | Hospitalist Progress Note ---
Date of Service July 18, 2024 Assessment & Plan (1) NSTEMI (non-ST elevated myocardial infarction): (2) Multiple vessel coronary artery disease: (3) Parkinson's disease: (4) Anxiety: (5) Depression: (6) Hyperlipidemia: (7) CAD (coronary artery disease): (8) Peripheral arterial disease: Plan The patient is a 79 yo M with an extensive cardiac history including multivessel CAD, NSTEMI who presents to the ED on 07/17/2024 with complaints of syncopal episode Syncopal episode: recent constipation noted, episode occurred shortly after bowel movement -syncopal episode vasovagal/ orthostatic - Pt seen by cardiology and evaluated, appreciate recommendations - will apply compression stockings, hold furosemide, re-check orthostatic VS - pt's neuro meds for Parkinson's were increased - also possibly contributing - will need to follow up w/ neurology regarding this telemetry monitoring, no arrhythmias noted Recent echo with EF 55-60%, septal/inferior wall hypokinesis, moderate aortic valve sclerosis Continue current cardiac meds for now, may need to adjust if Orthos are continues to be positive- as per cardiology Leukocytosis: -WBC of 12 on admission, now resolved -sources include colitis 2/2 constipation vs. cystitis (noted on imaging) -biofire negative, noted infiltrates on CT chest but without symptoms UA - negative -aggressive bowel regiment - pt had BM again here - no blood in stool per RN -hold abx for now Hx multivessel CAD Hx NSTEMI 06/27/24 HTN/HLD continue Toprol/Imdur/statin/repatha, ezetimibe - may need to decrease Imdur, as per cardiology Parkinson's disease: continue Sinemet, continue PT/OT - recent dose increase in carbidopa/levodopa which possibly contributing to pt's episode - will need to follow up w/ neurology regarding his meds adjusted Mood disorder: Continue SSRI, clonazepam Patient is a DNR/DNI DVT prophylaxis: Heparin subcu Admission and Anticipated Discharge Date Admission Date: July 17, 2024 Subjective Pt seen in follow up of syncope Hx of Parkinsons, recent NSTEMI constipation -> BM -> syncope at home - syncopal episode vasovagal/ orthostatic Pt seen by cardiology and evaluated Currently sitting up in chair in NAD, reports feeling tired. No chest pain, no shortness of breath, no abd. pain Discussed w/ RN - pt had a BM here - no blood in stool Will apply compression stockings, will re-check orthostatic VS Pt also reports his son will be at home tomorrow to help him as needed Review of Systems Review of Systems: All systems reviewed & are unremarkable except as noted in Subjective Physical Exam Physical Exam: Constitutional: WD/WN, in NAD Eyes: PERRL ENMT: external ear and n ose normal Neck: supple Respiratory: normal respiratory effort, lungs rhea ar to auscultation Cardiovascular: RRR, syst. murmur, no edema Gastrointestinal ( Abdomen): normal bowel sound s, soft, nontender Musculoskeletal: moves extremities Skin: no rashes, warm an d dry Neurologic: PERRL, EOMI, no fa ce palsy, answers appropriately, but slowly, moves ext remities Results & Data Results & Data Vital Signs (Past 12 Hours) Vital Signs Temp Pulse Pulse Resp BP BP Pulse Ox 07/18/24 11:53 36.6 C 65 18 172/84 H 92 07/18/24 09:00 59 L 07/18/24 08:03 36.6 C 61 18 138/71 93 07/18/24 03:09 36.9 C 60 18 136/73 92 O2 Del Method 07/18/24 11:53 Room Air 07/18/24 09:00 07/18/24 08:03 Room Air 07/18/24 03:09 Room Air Laboratory Results 07/18/24 07/18/24 07/18/24 Range/Units 08:46 07:06 07:03 WBC 8.07 (4.8-10.8) K/ul RBC 4.11 L (4.70-6.10) M/uL Hgb 12.4 L (14.0-18.0) g/dl Hct 36.8 L (42.0-52.0) % MCV 89.5 (80.0-100.0) fL MCH 30.2 (25.0-34.0) pg MCHC 33.7 (32.0-36.0) g/dL RDW Std Deviation 44.7 (36.4-46.3) fL RDW Coeff of Lanre 13.8 (11.5-14.5) % Plt Count 190 (130-400) K/uL MPV 10.2 (9.4-12.4) fL Sodium 137 (136-145) mmol/L Potassium 4.3 (3.5-5.1) mmol/L Chloride 104 (98-107) mmol/L Carbon Dioxide 28 (21-32) mmol/L Anion Gap 5 (3-11) BUN 22 (6-23) mg/dl Creatinine 1.08 (0.6-1.4) mg/dl Est Cr Clr Drug Dosing 62.4 ml/min eGFR 69.81 BUN/Creatinine Ratio 20.4 H (10-20) Glucose 123 H (70-99(Fasting)) mg/dl Calcium 9.0 (8.6-10.3) mg/dl Phosphorus 4.0 (2.5-4.9) mg/dl Magnesium 2.1 (1.7-2.4) mg/dl Urine Color Dark Yellow Urine Appearance Clear (Clear) Urine pH 6.0 (4.5-7.5) Ur Specific [place] 1.041 H (1.000-1.030) Urine Protein Trace H (Negative) Urine Glucose (UA) Negative (Negative) Urine Ketones Trace H (Negative) Urine Blood Negative (Negative) Urine Nitrite Negative (Negative) Urine Bilirubin Negative (Negative) Urine Urobilinogen Negative (Negative) Ur Leukocyte Esterase Trace H (Negative) Urine WBC (Auto) 6-10 H (0-5) /hpf Urine RBC (Auto) 3-5 H (0-2) /hpf U Hyaline Cast (Auto) 0-2 (0-2) /lpf U Epithel Cells (Auto) 0-2 (0-2) /hpf Urine Bacteria (Auto) None Seen (None Seen) Medications Administered Current Inpatient Medications Acetaminophen (Acetaminophen 325 Mg Tab) 650 mg PO Q4H PRN PRN Reason: Pain or Fever Stop: 08/16/24 13:50 Aspirin (Aspirin 81 Mg Ectab) 81 mg PO QAM [facility] Stop: 08/17/24 08:59 Last Admin: 07/18/24 08:48 Dose: 81 mg Calcium Carbonate (Calcium Carbonate 1250mg Tab) 1 tab PO DAILY [facility] Stop: 08/16/24 13:59 Last Admin: 07/18/24 10:14 Dose: 1 tab Carbidopa/Levodopa (Carbidopa/Levodopa 25/100mg Ext Rel Tab) 1 tab PO BID [facility] Stop: 08/16/24 20:59 Last Admin: 07/18/24 08:49 Dose: 1 tab Citalopram Hydrobromide (Citalopram 20 Mg Tab) 20 mg PO QAM [facility] Stop: 08/17/24 08:59 Last Admin: 07/18/24 08:48 Dose: 20 mg Clonazepam (Clonazepam 0.5 Mg Tab) 0.5 mg PO Q12H PRN PRN Reason: Anxiety Stop: 08/16/24 13:50 Clopidogrel Bisulfate (Clopidogrel Bisulfate 75 Mg Tab) [facility] [place] Stop: 08/17/24 08:59 Last Admin: 07/18/24 08:49 Dose: 75 mg Ezetimibe (Ezetimibe 10 Mg Tab) 10 mg PO QAM [facility] Stop: 08/17/24 08:59 Last Admin: 07/18/24 08:49 Dose: 10 mg Heparin Sodium (Porcine) (Heparin Sod 5,000 Unit/0.5 Ml Vial) 5,000 units SQ Q12 [facility] Stop: 08/16/24 20:59 Last Admin: 07/18/24 08:49 Dose: 5,000 units Isosorbide Mononitrate (Isosorbide [place] Extended Rel 60 Mg Tabcr) [facility] [place] Stop: 08/17/24 08:59 Last Admin: 07/18/24 10:13 Dose: 60 mg Melatonin (Melatonin 3 Mg Tab) 6 mg PO [facility] Stop: 08/16/24 20:59 Last Admin: 07/17/24 20:48 Dose: 6 mg Metoprolol Succinate (Metoprolol Succ 25mg Ext Rel Tab) 25 mg PO [facility] Stop: 08/16/24 20:59 Last Admin: 07/17/24 20:49 Dose: Not Given Polyethylene Glycol (Polyethylene (Miralax) 17 Gm Pack) 17 gm PO DAILY [facility] Stop: 08/16/24 11:59 Last Admin: 07/18/24 08:50 Dose: 17 gm Senna/Docusate Sodium (Docusate Sodium/Senna 50/8.6mg Tab) 1 tab PO QAM [facility] Stop: 08/16/24 11:59 Last Admin: 07/18/24 08:48 Dose: 1 tab Vitamin D (Cholecalciferol 25 Mcg (1000 Units) Tab) 25 mcg PO DAILY [facility] Stop: 08/16/24 13:59 Last Admin: 07/18/24 08:49 Dose: 25 mcg (3) Parkinson's disease Dyskinesia presence: unspecified whether dyskinesia Fluctuating manifestations: unspecified whether manifestations fluctuate Qualified Code(s): G20.A1 - Parkinson's disease without dyskinesia, without mention of fluctuations
--- NOTE | 2024-07-18 21:59 | Electrocardiogram Report ---
Test Reason : Blood Pressure : */* mmHG Vent. Rate : 61 BPM Atrial Rate : 61 BPM P-R Int : 188 ms QRS Dur : 98 ms QT Int : 432 ms P-R-T Axes : 42 -43 14 degrees QTcB Int : 434 ms Normal sinus rhythm with sinus arrhythmia Left axis deviation Minimal voltage criteria for LVH, may be normal variant ( R in aVL ) Nonspecific ST abnormality Abnormal ECG When compared with ECG of 17-Jul-2024 06:11, No significant change was found Confirmed by Alphonso Quinn ([id number]) on 07/18/2024 9:59:36 PM Referred By: REFERRED SELF Confirmed By: Alphonso Quinn
[2024-07-19 07:13] LABS: Hematocrit (blood only) 38.5 % (42.0-52.0); Hemoglobin 12.8 g/dl (14.0-18.0); Mean Corpuscular Hemoglobin 29.6 pg (25.0-34.0); Mean Corpuscular Hgb Conc 33.2 g/dL (32.0-36.0); Mean Corpuscular Volume 89.1 fL (80.0-100.0); Mean Platelet Volume 10.2 fL (9.4-12.4); Platelet Count 186 K/uL (130-400); RDW Coefficient of Variation 13.6 % (11.5-14.5); RDW Standard Deviation 44.9 fL (36.4-46.3); Red Blood Count 4.32 M/uL (4.70-6.10); White Blood Count 5.87 K/ul (4.8-10.8)
[2024-07-19 07:31] LABS: BUN Creatinine Ratio 21.3 (10-20); Calcium 9.3 mg/dl (8.6-10.3); Creatinine Clr Calc Pharmacy 71.8 ml/min; Magnesium 2.2 mg/dl (1.7-2.4); Phosphorus 3.5 mg/dl (2.5-4.9); Potassium 4.4 mmol/L (3.5-5.1)
--- NOTE | 2024-07-19 09:30 | Communication Note ---
Date of Service: July 19, 2024 EKG personally reviewed, revealing sinus bradycardia at 53 bpm with left axis deviation and LVH. Artifact noted from tremor. No atrial fibrillation. Telemetry: Sinus/sinus bradycardia, heart rates in the 50s and 60s. Artifact noted from tremor. No atrial fibrillation.
--- NOTE | 2024-07-19 13:15 | Electrocardiogram Report ---
Test Reason : Blood Pressure : */* mmHG Vent. Rate : 53 BPM Atrial Rate : * BPM P-R Int : * ms QRS Dur : 110 ms QT Int : 438 ms P-R-T Axes : * -43 1 degrees QTcB Int : 410 ms Atrial fibrillation with slow ventricular response Left axis deviation Moderate voltage criteria for LVH, may be normal variant ( R in aVL ) Abnormal ECG When compared with ECG of 18-Jul-2024 05:27, Atrial fibrillation has replaced Sinus rhythm Confirmed by Van Reyna ([id number]) on 07/19/2024 1:15:14 PM Referred By: REFERRED SELF Confirmed By: Van Reyna
[2024-07-19 15:54] VITALS: BP 121/79; PULSE 63; RESP 18; TEMP 98.1; O2SAT 97
--- NOTE | 2024-07-19 16:07 | Discharge Summary ---
Date of Service July 19, 2024 Admission HPI Per Admitting Provider the patient is a 79-year-old male with a past medical history of multivessel CAD, ID, HLD, COPD, Parkinson's, HTN, mood disorder, recent NSTEMI July/2024 who presents to the ED on 07/17/2024 with Complaints of a syncopal episode. Patient reported just finishing using the bathroom at home. Reported he got up and felt warm and dizzy and fell to the ground for a few seconds. Patient's son heard the fall and found his father on the floor. Patient was able to get back up after a few minutes of resting. Patient reports missing a full day of meds yesterday 07/16/2024, likely contributing to symptoms. Denies any seizure-like activity. EMS was called at that time and the patient was brought here for further evaluation. Patient was discharged on 06/07/2024 after recent NSTEMI, patient was given 48 hours of heparin and continued on aspirin/Plavix/statin/Toprol and follows closely outpatient with cardiology. On arrival to the ED, labs remarkable for WBC 12.3, glucose 127 BioFire pending EKG with normal sinus rhythm in the 60s, no acute changes noted Cervical spine CT and head CT unremarkable Chest CTA showed: 1. No evidence of pulmonary embolism. 2. Dilated pulmonary trunk and right artery suggest pulmonary hypertension 3. Bilateral diffuse segmental areas of ground glass attenuation, which could be due to inflammatory/infectious etiology. Advice clinical correlation. 4. Mild bilateral apical paraseptal emphysema. 5. These findings are better appreciated by current CT. A/P CT showed: 1. Diffuse rectosegmoid and to lesser extent descending and segmental area of transverse colon mural thickening suggestive of acute colitis, follow up and laboratory assessment is advised, progressed. 2. Multiple Bilobar well-defined thin-walled simple cysts, stable. 3. Right renal few cysts largest exophytic cyst of Bosniak type I, stable. 4. Mild prostatomegaly noted, stable. 5. Diffuse aortoiliac atherosclerotic changes, stable. 6. Mild urinary bladder wall thickening may be due to underdistension/ cystitis, new finding. The patient will be admitted for further syncope workup Admission Exam Per Admitting Provider General Appearance: WD/WN, vitals as above, NAD, sitting up in bed, pleasant, appears chronically ill, BUE tremors Head: normocephalic, atraumatic Eyes: normal inspection, PERRL, conjunctivae normal, anicteric sclerae ENT: external ear and nose normal, oropharynx normal Neck: normal visual inspection, trachea midline, no thyromegaly Respiratory: normal respiratory effort, lungs clear to auscultation, no wheeze, rales, rhonchi. No accessory muscle use Cardiovascular: regular rate, rhythm, normal peripheral pulses, no BLE edema. Vessels: no JVD Chest: normal inspection of chest Abdomen/GI: normal bowel sounds, soft, nontender, no hepatosplenomegaly Extremities/Musculoskeletal: no cyanosis or clubbing, extremities motor strength 5/5 Neurologic: PERRL, EOMI, accommodation nl, no face palsy, no dysarthria, CN's II-XI intact bilaterally and moves all extremities Psychiatric: A+Ox3, euthymic affect Skin: no rashes, normal color, warm/dry Principal Diagnosis Syncope, vasovagal / orthostatic Discharge Exam Constitutional: WD/WN, in NAD Eyes: PERRL ENMT: external ear and nose normal Neck: supple Respiratory: normal respiratory effort, lungs clear to auscultation Cardiovascular: RRR, syst. murmur, no edema Gastrointestinal (Abdomen): normal bowel sounds, soft, nontender Musculoskeletal: moves extremities Skin: no rashes, warm and dry Neurologic: PERRL, EOMI, no face palsy, answers appropriately, but slowly, moves extremities Discharge Data Allergies Allergy/AdvReac Type Severity Reaction Status Date / Time bee venom protein (honey bee) Allergy Severe SWELLING, Verified 05/07/24 00:48 INTENSE ITCHING, HIVES gabapentin Allergy Unknown Unknown Verified 05/07/24 00:48 atorvastatin AdvReac Intermediate MUSCLE PAIN Verified 05/07/24 00:48 carbidopa [From Sinemet] AdvReac Intermediate Unknown/Family Verified 05/07/24 00:48 says only Sinemet, haven't tried Sinemet CR. levodopa [From Sinemet] AdvReac Intermediate Unknown/Family Verified 05/07/24 00:48 says only Sinemet, haven't tried Sinemet CR. Consultations 07/17/24 10:14 ED Decision to Admit Stat 07/17/24 13:51 Consult Cardiology Routine Ordered Studies 07/17/24 06:59 CT abd pelvis IV con only Stat IMPRESSION: 1. Diffuse rectosegmoid and to lesser extent descending and segmental area of transverse colon mural thickening suggestive of acute colitis, follow up and laboratory assessment is advised, progressed. 2. Multiple Bilobar well-defined thin-walled simple cysts, stable. 3. Right renal few cysts largest exophytic cyst of Bosniak type I, stable. 4. Mild prostatomegaly noted, stable. 5. Diffuse aortoiliac atherosclerotic changes, stable. 6. Mild urinary bladder wall thickening may be due to underdistension/ cystitis, new finding. CT angio chest PE protocol Stat IMPRESSION: 1. No evidence of pulmonary embolism. 2. Dilated pulmonary trunk and right artery suggest pulmonary hypertension 3. Bilateral diffuse segmental areas of ground glass attenuation, which could be due to inflammatory/infectious etiology. Advice clinical correlation. 4. Mild bilateral apical paraseptal emphysema. 5. These findings are better appreciated by current CT. CT cervical spine wo con Stat IMPRESSION: 1. Degenerative changes of cervical spine. 2. No evidence of acute fracture, or dislocation. CT head/brain wo con Stat IMPRESSION: Mild age matched brain involutional changes (stable). Hospital Course (1) NSTEMI (non-ST elevated myocardial infarction): (2) Multiple vessel coronary artery disease: (3) Parkinson's disease: (4) Anxiety: (5) Depression: (6) Hyperlipidemia: (7) CAD (coronary artery disease): (8) Peripheral arterial disease: Plan The patient is a 79 yo M with an extensive cardiac history including multivessel CAD, NSTEMI who presents to the ED on 07/17/2024 with complaints of syncopal episode Syncopal episode: recent constipation noted, episode occurred shortly after bowel movement -syncopal episode vasovagal/ orthostatic - Pt seen by cardiology and evaluated, appreciate recommendations - will apply compression stockings, hold furosemide, re-check orthostatic VS - pt's neuro meds for Parkinson's were increased - also possibly contributing - will need to follow up w/ neurology regarding this telemetry monitoring, no arrhythmias noted Recent echo with EF 55-60%, septal/inferior wall hypokinesis, moderate aortic valve sclerosis Continue current cardiac meds for now, may need to adjust if Orthos continues to be positive- as per cardiology Leukocytosis: -WBC of 12 on admission, now resolved -sources include colitis 2/2 constipation vs. cystitis (noted on imaging) -biofire negative, noted infiltrates on CT chest but without symptoms UA - negative -aggressive bowel regiment - pt had BM again here - no blood in stool per RN -hold abx for now Hx multivessel CAD Hx NSTEMI 06/27/24 HTN/HLD continue Toprol/Imdur/statin/repatha, ezetimibe - may need to decrease Imdur, as per cardiology Parkinson's disease: continue Sinemet, continue PT/OT - recent dose increase in carbidopa/levodopa which possibly contributing to pt's episode - will need to follow up w/ neurology regarding his meds adjusted Mood disorder: Continue SSRI, clonazepam Total Time Total Time Spent Total Time Spent (In Minutes): 40 Discharge Plan Discharge Items Patient Disposition: Home - Self-Care Reason For Visit: SYNCOPE Discharge Diagnosis: Syncope, vasovagal / orthostatic Activity: Per Instructions section Non-emergency contact: Primary Care Provider, [facility] [employer] and Neurologist Call non-emergency contact if: you have any medication questions and your symptoms worsen Follow-up/Referrals: Kaz Robledo MD [Primary Care Provider] - Diet: Heart Healthy Addtl Attending Provider Instructions: Follow up with your primary care doctor, neurologist, staff pharmacist. You should be seen by your primary care doctor within 1 week. Make sure to stay well hydrated. Make sure to wear compression stockings during the day as it can help with orthostatic hypotension. Make sure to slowly change position from sitting to standing. Pending Studies at Discharge: No Stand-Alone Forms: My [facility] [place], Smoking Cessation Medications and DC Order Prescriptions: New sennosides-docusate sodium [Senokot-S] 8.6-50 mg Tablet 1 tab PO QAM Qty: 30 0RF Continued nitroglycerin [Nitrostat] 0.4 mg Tablet, Sublingual 0.4 mg sublingual DIRECTED PRN (Reason: Chest Pain) Qty: 0 Rx Instructions: 1 TAB EVERY 5 MINUTES, NEEDED FOR CHEST PAIN, UP TO 3 TABS PER EPISODE. multivitamin Tablet 1 tab PO DAILY Qty: 0 aspirin [Pollo Low Dose Aspirin] 81 mg Tablet,Delayed Release (Dr/Ec) 81 mg PO QAM 90 Days Qty: 90 clonazepam [Klonopin] 0.5 mg tablet 0.5 mg PO Q12H PRN (Reason: Anxiety) Qty: 0 citalopram 20 mg tablet 20 mg PO QAM Qty: 0 coenzyme Q10 [Co Q-10] 400 mg capsule 400 mg PO DAILY docusate sodium 100 mg capsule 100 mg PO DAILY PRN (Reason: Constipation) folic acid 400 mcg tablet 400 mcg PO QAM metoprolol succinate 25 mg tablet extended release 24 hr 25 mg PO HS ketoconazole 2 % cream 1 appln TOP UD Rx Instructions: APPLY TO SCALP 2-3 TIMES PER WEEK polyethylene glycol 3350 [Miralax] 17 gram Powder In Packet 17 g PO DAILY Rx Instructions: IF AFTER ONE WEEK, BOWELS ARE NOT MOVING WELL, TAKE TWICE A DAY. cholecalciferol (vitamin D3) [Vitamin D3] 25 mcg (1,000 unit) Tablet 25 mcg PO UD Rx Instructions: 25 mcg po qam. pt isnt sure if he still takes vitamin D. Has filled history of 03/19 30 day supply calcium carbonate 500 mg calcium (1,250 mg) Tablet 500 mg PO UD Rx Instructions: 500 mg po daily. Pt isnt sure if he still takes this, no fill history/otc Repatha SureClick 140 mg/mL pen injector 140 mg SUBCUT .Q14 DAYS Rx Instructions: REMOVE FROM REFRIGERATOR 30 MINUTES PRIOR TO INJECTION ezetimibe 10 mg tablet 10 mg PO QAM melatonin 3 mg Tablet 6 mg PO HS fluocinonide 0.05 % Solution 1 applic TOPICAL DAILY PRN (Reason: Skin Irritation) Rx Instructions: APPLY TO SCALP DAILY SUNDAY THRU SUNDAY, NEEDED, FOR REDNESS AND FLAKING. diclofenac sodium 1 % Gel 4 g TOPICAL QID Rx Instructions: APPLY 4GM TOPICALLY TO RIGHT SHOULDER 4 TIMES A DAY. ketoconazole 2 % Cream 1 applic TOPICAL .2-3 TIMES WEEKLY Rx Instructions: APPLY TO FACE 2-3 TIMES PER WEEK. triamcinolone acetonide 0.1 % Cream 1 applic TOPICAL BID Rx Instructions: APPLY TOPICALLY TO AFFECTED AREA 2 TIMES A DAY. clopidogrel 75 mg tablet 75 mg PO QAM carbidopa-levodopa 25-100 mg tablet extended release 1 tab PO BID isosorbide mononitrate 60 mg Tablet Extended Release 24 Hr 60 mg PO QAM Qty: 30 1RF Discharge Orders: Discharge Order (Routine); Ordered 07/19/24 Ordered By: Saúl Olson Admission Data Admit Date/Time: 07/17/24 10:20 Attending Provider: Saúl Olson Admit Provider: Jeff Tapia Primary Care Provider: Kaz Robledo Other Providers: Jeff Tapia; Erich Narvaez Other Interventions: Discharge Summary Assessment (RN) Last Done: 07/19/24 16:14
== END 2024-07-19 17:03 | disposition home or self-care (01) | DRG 282 ==
LOC: ED 06:02 → SUATTDRO 10:20 → 2S 10:20
DX: I10 Essential (primary) hypertension; N40.0 Benign prostatic hyperplasia without lower urinary tract symptoms; Z66 Do not resuscitate; I95.1 Orthostatic hypotension; F32.A Depression, unspecified; Z79.02 Long term (current) use of antithrombotics/antiplatelets; I21.4 Non-ST elevation (NSTEMI) myocardial infarction; Z87.891 Personal history of nicotine dependence; I73.9 Peripheral vascular disease, unspecified; J44.9 Chronic obstructive pulmonary disease, unspecified; F41.9 Anxiety disorder, unspecified; D72.829 Elevated white blood cell count, unspecified; E78.5 Hyperlipidemia, unspecified; Z79.899 Other long term (current) drug therapy; Z79.82 Long term (current) use of aspirin; I25.10 Atherosclerotic heart disease of native coronary artery without angina pectoris; G20.A1 Parkinson's disease without dyskinesia, without mention of fluctuations; K59.00 Constipation, unspecified; H91.90 Unspecified hearing loss, unspecified ear; Z88.8 Allergy status to other drugs, medicaments and biological substances

== ENCOUNTER 2024-11-27 04:04 | Inpatient (IN) ==
--- NOTE | 2024-11-27 04:32 | Emergency Department Note ---
Impression & Plan Chest pain, CAD (coronary artery disease), Parkinson's disease, Paroxysmal atrial flutter ED Provider Note NAME: BECKY MCCANN AGE: 79 SEX: M : 1945 ARRIVES VIA: Walk-In INFORMANT: Patient ED PROVIDER(S): Junior Cardozo MD CHIEF COMPLAINT: Chest pain PLAN: Disposition: Admit MEDICAL DECISION MAKING: The patient is a pleasant 79-year-old gentleman with a past medical history of multivessel CAD with history of AL, hypertension, hyperlipidemia, COPD, Parkinson's disease, who presents to the emergency department via walk-in accompanied by his son and granddaughter for evaluation of substernal chest pain, palpitations and generalized weakness that began at 10:30 PM last night and has continued. The patient reports he took a nitroglycerin and did feel some improvement in severity of pain. He reports that he has been told when he has chest pain to try an antacid to see if his symptoms could be GI related but he did not do this tonight as he felt symptoms were different than what he is experienced before. He reports there have been times where he has felt relief with antacids. Otherwise he denies any fevers, chills, cough, congestion, GI or symptoms. Per review of records the patient does have a history of syncope and orthostasis in the setting of his Parkinson's disease. Per records patient has known inoperable CAD and medical management has been recommended in the past. On evaluation patient is no distress, afebrile with stable vital signs. He appears clinically dry. Exam is otherwise unremarkable. EKG demonstrates suspected atrial flutter with variable A-V block without overt acute ischemia. CXR negative for acute cardiopulmonary process per my personal preliminary review/interpretation. WBC within normal limits. H/H similar to prior. Platelets within limits. Chemistry without metabolic acidosis. BUN/creatinine 20 consistent with patient's clinical appearance. Electrolytes unremarkable. LFTs unremarkable. Initial high-sensitivity troponin 8.7, within normal limits. Lipase is normal. UA without evidence of infection. Given the patient's history of multivessel CAD with his report of symptoms that felt different and more severe than prior where he felt some improved nitroglycerin patient does agree with plan for admission for further management for high risk chest pain. Patient was given full dose aspirin and additional nitroglycerin. Case was discussed with Ela Farias, who will evaluate the patient for admission. Further management per admitting team. Case was discussed with Ela Farias, who will evaluate the patient for admission. Further management per admitting team. Triage Nursing notes reviewed and agree them. Prior/external medical records reviewed Vital Signs: reviewed Differential diagnosis: Cardiac ischemia, aortic dissection, pulmonary embolism, pneumothorax, pneumonia, pericarditis, myocarditis, esophageal rupture, GERD, cholecystitis, pancreatitis, musculoskeletal, as well as other pathologies. ER treatment provided: See below. Diagnostics interpreted by me: ECG: Suspected atrial flutter with slow ventricular response, 53 bpm, LVH, no overt ST elevation or depression, QTc 410, QRS 96. Cardiac Monitoring: An order for continuous cardiac monitoring was placed and demonstrated atrial flutter, 53 bpm, no ectopy. Laboratory studies: See below Imaging studies: See below Consultation(s): Case was discussed with Ela Farias, who will evaluate the patient for admission. HPI: Per MDM. ROS: See above HPI for pertinent positives & negatives. A total of 10 systems reviewed and were otherwise negative. VITALS:See Below PHYSICAL EXAMINATION: GENERAL: Awake, alert, in no distress HENT: Normocephalic, atraumatic. Oropharynx with dry mucous membranes and otherwise unremarkable. EYES: Normal conjunctiva. Sclera non-icteric. NECK: Supple. No nuchal rigidity. FROM. No JVD. RESPIRATORY: Clear to auscultation. CARDIAC: Bradycardic rate, irregular rhythm. Extremities warm and well perfused. Pulses equal. ABDOMEN: Soft, non-distended. No tenderness to palpation. No rebound or guarding. No masses. MUSCULOSKELETAL: Chest examination reveals no tenderness. The back is symmetrical on inspection without obvious abnormality. There is no CVA tenderness to palpation. No joint edema. LOWER EXTREMITIES: Calves are equal size bilaterally and non-tender. No edema. No discoloration. NEURO: Normal sensorium. No sensory or motor deficits noted. SKIN: No rash or jaundice noted. Junior Cardozo MD Past Med/Surg History Problem List (Updated 11/27/24 @ 16:53 by Junior Cardozo MD) CAD (coronary artery disease) (Acute) Chest pain (Acute) Paroxysmal atrial flutter (Acute) Facial injury (Acute) Fall (Acute) ASCVD (arteriosclerotic cardiovascular disease) Syncope Orthostatic hypotension SOB (shortness of breath) on exertion Parkinson's disease (Acute) Elevated troponin I level (Acute) Chest pain (Acute) Anxiety Depression Hyperlipidemia CAD (coronary artery disease) Peripheral arterial disease Hypertension (Chronic) Medical History NSTEMI (non-ST elevated myocardial infarction) Mixed hyperlipidemia Multiple vessel coronary artery disease Atrial flutter Inguinal hernia Surgical History S/P tonsillectomy Family History Other Asthma Denies family history of Hypertension Social History Smoking Status: Former smoker Tobacco Type: Cigarettes Second Hand Exposure: No; Do You Dip or Chew Tobacco: No; Hx Alcohol Use: No Hx Substance Use: No Preferred Language: Kyrgyz Communication Ability: Effective Piper Helper Required: No Beliefs That Will Affect Care: None Current Living Situation: Family Other Information That Helps Us Care for You: No Feels Safe at Home: Yes Safety Concerns: Feels Safe At This Time Assistive Devices: Cane, Denture - Upper, Denture - Lower, Glasses and Walker Allergies Allergies Allergy/AdvReac Type Severity Reaction Status Date / Time bee venom protein (honey bee) Allergy Severe SWELLING, Verified 11/20/24 23:23 INTENSE ITCHING, HIVES gabapentin Allergy Unknown Unknown Verified 11/20/24 23:23 atorvastatin AdvReac Intermediate MUSCLE PAIN Verified 11/20/24 23:23 carbidopa [From Sinemet] AdvReac Intermediate Unknown/Family Verified 11/20/24 23:23 says only Sinemet, haven't tried Sinemet CR. levodopa [From Sinemet] AdvReac Intermediate Unknown/Family Verified 11/20/24 23:23 says only Sinemet, haven't tried Sinemet CR. Home Meds Home Medications Medication Instructions Recorded Confirmed aspirin 81 mg tablet,delayed 81 mg PO DAILY 11/27/24 11/27/24 release carbidopa ER 25 mg-levodopa 100 mg 1 tab PO UD 11/27/24 11/27/24 tablet,extended release citalopram 20 mg tablet 20 mg PO DAILY 11/27/24 11/27/24 clonazepam 0.5 mg tablet 0.5 mg PO BID PRN Anxiety 11/27/24 11/27/24 clopidogrel 75 mg tablet 75 mg PO DAILY 11/27/24 11/27/24 evolocumab 140 mg/mL subcutaneous 140 mg subcut UD 11/27/24 11/27/24 pen injector (Neha Carter) ezetimibe 10 mg tablet 10 mg PO DAILY 11/27/24 11/27/24 folic acid 400 mcg tablet 0.4 mg PO DAILY 11/27/24 11/27/24 furosemide 20 mg tablet 20 mg PO DAILY PRN Edema 11/27/24 11/27/24 isosorbide mononitrate 60 mg 60 mg PO DAILY 11/27/24 11/27/24 tablet,extended release 24 hr linaclotide 290 mcg capsule 290 mcg PO DAILYBB 11/27/24 11/27/24 (Linzess) metoprolol succinate 25 mg 25 mg PO HS 11/27/24 11/27/24 tablet,extended release 24 hr multivitamin 1 tab PO DAILY 11/27/24 11/27/24 nitroglycerin 0.4 mg sublingual 0.4 mg sublingual UD PRN Chest Pain 11/27/24 11/27/24 tablet Results & Data (ED) Vital Signs Vital Signs - 24 hr 11/27/24 04:06 11/27/24 04:39 11/27/24 04:39 Temperature 36.6 C Temperature Source Temporal Artery Scan Pulse Rate 50 L Pulse Rate [Right Finger] 50 L Pulse Rhythm Pulse Rhythm [Right Finger] Irregular Pulse Strength [Right Finger] Normal Respiratory Rate 22 19 Respiratory Effort / Characteristics Non-Labored Spontaneous Respiratory Depth Normal Respiratory Pattern Regular Blood Pressure 117/69 Blood Pressure [Left Arm] 156/82 H Blood Pressure Mean 85 Blood Pressure Mean [Left Arm] 106 Blood Pressure Position [Left Arm] Lying Pulse Oximetry 97 97 Oxygen Delivery Method Room Air Room Air Room Air Sepsis Recent Fever Within 48 Hours No Sepsis New/Unexplained Change in Mental Status No Sepsis Action Taken by Nursing No Action Required 11/27/24 04:39 11/27/24 04:46 11/27/24 05:45 Temperature Temperature Source Pulse Rate 51 L 53 L Pulse Rate [Right Finger] 50 L Pulse Rhythm Irregular Pulse Rhythm [Right Finger] Regular Pulse Strength [Right Finger] Respiratory Rate 18 18 Respiratory Effort / Characteristics Respiratory Depth Respiratory Pattern Blood Pressure Blood Pressure [Left Arm] 168/77 H Blood Pressure Mean Blood Pressure Mean [Left Arm] 107 Blood Pressure Position [Left Arm] Pulse Oximetry 97 93 Oxygen Delivery Method Room Air Room Air Sepsis Recent Fever Within 48 Hours Sepsis New/Unexplained Change in Mental Status Sepsis Action Taken by Nursing Laboratory Data Attestation: I reviewed the patient's lab results. 11/27/24 04:33 11/27/24 04:33 Lab Results 11/27/24 Range/Units 04:33 WBC 8.79 (4.8-10.8) K/ul RBC 4.54 L (4.70-6.10) M/uL Hgb 13.9 L (14.0-18.0) g/dl Hct 40.5 L (42.0-52.0) % MCV 89.2 (80.0-100.0) fL MCH 30.6 (25.0-34.0) pg MCHC 34.3 (32.0-36.0) g/dL RDW Std Deviation 43.1 (36.4-46.3) fL RDW Coeff of Lanre 13.2 (11.5-14.5) % Plt Count 233 (130-400) K/uL MPV 10.0 (9.4-12.4) fL Immature Gran % (Auto) 0.2 % Neut % (Auto) 70.8 % Lymph % (Auto) 16.0 % Gibson % (Auto) 9.4 % Eos % (Auto) 2.7 % Baso % (Auto) 0.9 % Neut # (Auto) 6.21 (1.40-6.50) K/uL Lymph # (Auto) 1.41 (1.20-3.40) K/uL Gibson # (Auto) 0.83 H (0.11-0.59) K/uL Eos # (Auto) 0.24 (0.00-0.50) K/uL Baso # (Auto) 0.08 (0.00-0.20) K/uL Immature Gran # (Auto) 0.02 (0.01-0.20) K/uL PT Cancelled INR Cancelled Sodium 136 (136-145) mmol/L Potassium 4.2 (3.5-5.1) mmol/L Chloride 102 (98-107) mmol/L Carbon Dioxide 27 (21-32) mmol/L Anion Gap 7 (3-11) BUN 24 H (6-23) mg/dl Creatinine 1.15 (0.6-1.4) mg/dl Est Cr Clr Drug Dosing 58.3 ml/min eGFR 64.74 BUN/Creatinine Ratio 20.9 H (10-20) Glucose 114 H (70-99(Fasting)) mg/dl Calcium 9.5 (8.6-10.3) mg/dl Magnesium 2.1 (1.7-2.4) mg/dl Total Bilirubin 0.5 (0.2-1.0) mg/dl AST 16 (13-39) U/L ALT 3 L (7-52) U/L Alkaline Phosphatase 75 (34-104) U/L Troponin I High Sens 8.7 (0-20) pg/ml Total Protein 6.8 (6.0-8.3) gm/dl Albumin 4.2 (3.4-5.0) gm/dl Globulin 2.6 (2.5-4.0) gm/dl Albumin/Globulin Ratio 1.6 (0.9-2) Lipase 14 (11-82) U/L Administered Medications Amlodipine Besylate (Amlodipine Besylate 5 Mg Tab) 2.5 mg PO QAM [facility] Stop: 12/27/24 13:24 Last Admin: 11/27/24 14:46 Dose: 2.5 mg Documented By: AALIYAH Aspirin (Aspirin 81 Mg Ectab) 81 mg PO DAILY [facility] Stop: 12/27/24 08:59 Last Admin: 11/27/24 11:11 Dose: 81 mg Documented By: AALIYAH Carbidopa/Levodopa (Carbidopa/Levodopa 25/100mg Ext Rel Tab) 1 tab PO 0800,1130,1730 [facility] Stop: 12/27/24 08:54 Last Admin: 11/27/24 16:32 Dose: 1 tab Documented By: Admin: 11/27/24 11:14 Dose: Not Given Documented By: Admin: 11/27/24 11:11 Dose: 1 tab Documented By: AALIYAH Citalopram Hydrobromide (Citalopram 20 Mg Tab) 20 mg PO DAILY [facility] Stop: 12/27/24 08:59 Last Admin: 11/27/24 11:09 Dose: 20 mg Documented By: AALIYAH Clopidogrel Bisulfate (Clopidogrel Bisulfate 75 Mg Tab) 75 mg PO DAILY PHUONG Stop: 12/27/24 08:59 Last Admin: 11/27/24 11:10 Dose: 75 mg Documented By: AALIYAH Ezetimibe (Ezetimibe 10 Mg Tab) 10 mg PO DAILY PHUONG Stop: 12/27/24 08:59 Last Admin: 11/27/24 11:09 Dose: 10 mg Documented By: AALIYAH Folic Acid (Folic Acid 400 Mcg Tab) 400 mcg PO DAILY PHUONG Stop: 12/27/24 08:59 Last Admin: 11/27/24 11:10 Dose: 400 mcg Documented By: AALIYAH Linaclotide (Linaclotide 145 Mcg Capsule) 290 mcg PO DAILYBB [facility] Stop: 12/27/24 09:29 Last Admin: 11/27/24 11:10 Dose: 290 mcg Documented By: AALIYAH Multivitamins (Multivitamin Tab) 1 tab PO QAM PHUONG Stop: 12/27/24 09:14 Last Admin: 11/27/24 11:12 Dose: Not Given Documented By: AALIYAH Discontinued Medications Aspirin (Aspirin Chew 324 Mg) 324 mg PO NOW STA Stop: 11/27/24 05:14 Last Admin: 11/27/24 05:39 Dose: 324 mg Documented By: NATHANAEL Sodium Chloride (Nss) 500 mls @ 999 mls/hr IV .Q31M ONE Stop: 11/27/24 05:44 Last Infusion: 11/27/24 06:34 Dose: Infused Documented By: Admin: 11/27/24 05:43 Dose: 999 mls/hr Documented By: NATHANAEL Isosorbide Mononitrate (Isosorbide Gibson Extended Rel 60 Mg Tabcr) 60 mg PO DAILY PHUONG Stop: 12/27/24 08:59 Last Admin: 11/27/24 11:10 Dose: 60 mg Documented By: AALIYAH Isosorbide Mononitrate (Isosorbide Gibson Extended Rel 30 Mg Tabcr) 30 mg PO NOW ONE Stop: 11/27/24 13:53 Last Admin: 11/27/24 14:47 Dose: 30 mg Documented By: AALIYAH Nitroglycerin (Nitroglycerin Sl 0.4 Mg/Tab Tab) 0.4 mg SL NOW STA Stop: 11/27/24 05:14 Last Admin: 11/27/24 05:41 Dose: 0.4 mg Documented By: NAW Imaging Data Radiologist's Impression: Chest X-Ray 11/27/24 04:07 EXAM: XR chest 1V portable CLINICAL HISTORY: Chest pain, nonspecific TECHNIQUE: Radiograph of chest was acquired. COMPARISON: FINDINGS: Unchanged prominence of bronchovascular markings noted bilaterally. Findings could be related to pulmonary congestion. Reticular changes seen in both lungs, more in lower lobes. No evidence of consolidation or collapse. No pulmonary nodules are identified. No evidence of pleural effusion or pleural thickening. The cardiomediastinal silhouette is within normal limits. No acute osseous abnormality. IMPRESSION: Unchanged prominence of bronchovascular markings noted bilaterally. Findings could be related to pulmonary congestion. Reticular changes seen in both lungs, more in lower lobes. Likely interstitial changes. No new findings Electronically signed by [place] 11-27-2024 05:56 AM Discharge Plan Visit Data Chief Complaint: Chest Pain Stated Complaint: CHEST PAIN, SOB ED Provider: Junior Cardozo Discharge Problem: Chest pain, CAD (coronary artery disease), Parkinson's disease, Paroxysmal atrial flutter Patient Disposition: Admitted As Inpatient Condition: Fair Discharge Instructions Interventions: ED Discharge Assessment Last Done: 11/27/24 08:14 Discharge Problem: Chest pain Qualifiers: Chest pain type: unspecified Qualified Code(s): R07.9 - Chest pain, unspecified CAD (coronary artery disease) Qualifiers: Coronary Disease-Associated Artery/Lesion type: unspecified vessel or lesion type [place] vs. transplanted heart: [place] heart Associated angina: unspecified whether angina present Qualified Code(s): I25.10 - Atherosclerotic heart disease of [place] coronary artery without angina pectoris Parkinson's disease Qualifiers: Dyskinesia presence: unspecified whether dyskinesia Fluctuating manifestations: unspecified whether manifestations fluctuate Qualified Code(s): G20.A1 - Parkinson's disease without dyskinesia, without mention of fluctuations
[2024-11-27 04:49] LABS: Hematocrit (blood only) 40.5 % (42.0-52.0); Hemoglobin 13.9 g/dl (14.0-18.0); Immature Granulocytes # (auto) 0.02 K/uL (0.01-0.20); Immature Granulocytes % (auto) 0.2 %; Mean Corpuscular Hemoglobin 30.6 pg (25.0-34.0); Mean Corpuscular Volume 89.2 fL (80.0-100.0); Platelet Count 233 K/uL (130-400); RDW Standard Deviation 43.1 fL (36.4-46.3); Red Blood Count 4.54 M/uL (4.70-6.10); White Blood Count 8.79 K/ul (4.8-10.8)
[2024-11-27 05:05] LABS: Alanine Aminotransferase 3.0 U/L (7-52); Albumin Globulin Ratio 1.6 (0.9-2); Alkaline Phosphatase 75.0 U/L (34-104); Anion Gap 7.0 (3-11); Bilirubin,Total 0.5 mg/dl (0.2-1.0); Blood Urea Nitrogen 24.0 mg/dl (6-23); Calcium 9.5 mg/dl (8.6-10.3); Carbon Dioxide 27.0 mmol/L (21-32); Chloride 102.0 mmol/L (98-107); Creatinine Clr Calc Pharmacy 58.3 ml/min; Globulin 2.6 gm/dl (2.5-4.0); Glucose 114.0 mg/dl (70-99(Fasting)); Lipase 14.0 U/L (11-82); Magnesium 2.1 mg/dl (1.7-2.4); Potassium 4.2 mmol/L (3.5-5.1); Sodium 136.0 mmol/L (136-145); Total Protein 6.8 gm/dl (6.0-8.3)
[2024-11-27] MEDS: ASPIRIN CHEW 324 MG PO STA (05:39)
[2024-11-27] MEDS: NITROGLYCERIN SL 0.4 MG/TAB TAB SL STA (05:41)
[2024-11-27] MEDS: SODIUM CHLORIDE 0.9% 500 ML IV ONE (05:43)
--- NOTE | 2024-11-27 05:57 | XRay Report ---
EXAM: XR chest 1V portable CLINICAL HISTORY: Chest pain, nonspecific TECHNIQUE: Radiograph of chest was acquired. COMPARISON: FINDINGS: Unchanged prominence of bronchovascular markings noted bilaterally. Findings could be related to pulmonary congestion. Reticular changes seen in both lungs, more in lower lobes. No evidence of consolidation or collapse. No pulmonary nodules are identified. No evidence of pleural effusion or pleural thickening. The cardiomediastinal silhouette is within normal limits. No acute osseous abnormality. IMPRESSION: Unchanged prominence of bronchovascular markings noted bilaterally. Findings could be related to pulmonary congestion. Reticular changes seen in both lungs, more in lower lobes. Likely interstitial changes. No new findings Electronically signed by [place] 11-27-2024 05:56 AM
[2024-11-27 07:11] LABS: INR 1.0 (0.9-1.1); Prothrombin Time 10.7 Seconds (9.0-12.0)
--- NOTE | 2024-11-27 07:38 | History & Physical Report ---
Date of Service November 27, 2024 Assessment & Plan (1) Chest pain: Plan: 79-year-old male with past medical history significant for dyslipidemia, prediabetes, COPD, peripheral vascular disease, history of CAD, right carotid stenosis, left carotid occlusion, orthostatic hypotension, paroxysmal atrial flutter, history of heart failure, osteoarthritis, Parkinson's disease, history of tobacco use, history of subdural hemorrhage, depression, who lives at home and the son is living with him currently, presents with chest pain. Last night 10:30 PM patient noticed chest pain. Took 1 nitro did not subside. Again he took another nitro early hours today which also did not help his pain and came to the ER. Pain is across the chest. No radiation. Has some dizziness. No headache. Some shortness of breath. No sweating. No cough. No fevers. No runny nose or sore throat. No abdominal pain. Usually constipated and uses stool softeners. Denies any blood in stools. Micturating okay. Patient says yesterday his blood pressure was high in 200s. He says last night blood pressure was okay. Currently seems resting comfortably. Chest pain EKG and troponin unremarkable Will follow serial cardiac enzymes and echo Consult cardiology for further recommendations History of multivessel CAD History of non-ST elevated IL May 2024 and was evaluated by CT surgery and was declined for surgical intervention.High risk PCI could be considered in the event of ST elevated IL however outcome likely poor as per cardiology notes On Aspirin, Plavix, Zetia, Repatha, Imdur, metoprolol succinate A-flutter/fib Patient has history of prior A-flutter episode in the past and was on Eliquis for short duration. No further events were noted and no longer on anticoagulation as per cardiology notes EKG today shows A-fib Cardiology consulted. Anticoagulation as per cardiology Hypertension Seems to be not well-controlled We will continue metoprolol succinate and Imdur and monitor Cardiology consulted Hyperlipidemia On Zetia and Repatha Constipation Only linzess. Parkinson's On carbidopa levodopa Depression On citalopram Clonazepam as needed Prediabetes Will follow HbA1c levels Peripheral vascular disease On aspirin Plavix and Repatha History of subdural hemorrhage per epic DVT prophylaxis SCDs for now Disposition Telemetry Full code. History of Present Illness Chief Complaint: Chest pain Primary Care Provider: Kaz Robledo MD 79-year-old male with past medical history significant for dyslipidemia, prediabetes, COPD, peripheral vascular disease, history of CAD, right carotid stenosis, left carotid occlusion, orthostatic hypotension, paroxysmal atrial flutter, history of heart failure, osteoarthritis, Parkinson's disease, history of tobacco use, history of subdural hemorrhage, depression, who lives at home and the son is living with him currently, presents with chest pain. Last night 10:30 PM patient noticed chest pain. Took 1 nitro did not subside. Again he took another nitro early hours today which also did not help his pain and came to the ER. Pain is across the chest. No radiation. Has some dizziness. No headache. Some shortness of breath. No sweating. No cough. No fevers. No runny nose or sore throat. No abdominal pain. Usually constipated and uses stool softeners. Denies any blood in stools. Micturating okay. Patient says yesterday his blood pressure was high in 200s. He says last night blood pressure was okay. Currently seems resting comfortably. Past medical history. As mentioned above Past surgical history. Complex cataract surgery. Left heart catheterization. Colonoscopy. Colonoscopy with biopsy. Knee arthroscopy. Rectal abscess. Tonsillectomy. Repair of inguinal hernia. Social history. . Quit smoking 2002. Smoked 0.8 packs a day for 30 years. No alcohol use but no drug use. Family history. Father had mental disorder. IL. Mother had IL. Allergies Allergy/AdvReac Type Severity Reaction Status Date / Time bee venom protein (honey bee) Allergy Severe SWELLING, Verified 11/20/24 23:23 INTENSE ITCHING, HIVES gabapentin Allergy Unknown Unknown Verified 11/20/24 23:23 atorvastatin AdvReac Intermediate MUSCLE PAIN Verified 11/20/24 23:23 carbidopa [From Sinemet] AdvReac Intermediate Unknown/Family Verified 11/20/24 23:23 says only Sinemet, haven't tried Sinemet CR. levodopa [From Sinemet] AdvReac Intermediate Unknown/Family Verified 11/20/24 23:23 says only Sinemet, haven't tried Sinemet CR. Home Medications Medication Instructions Recorded Confirmed Type aspirin 81 mg tablet,delayed 81 mg PO DAILY 11/27/24 11/27/24 History release carbidopa ER 25 mg-levodopa 100 mg 1 tab PO UD 11/27/24 11/27/24 History tablet,extended release citalopram 20 mg tablet 20 mg PO DAILY 11/27/24 11/27/24 History clonazepam 0.5 mg tablet 0.5 mg PO BID PRN Anxiety 11/27/24 11/27/24 History clopidogrel 75 mg tablet 75 mg PO DAILY 11/27/24 11/27/24 History evolocumab 140 mg/mL subcutaneous 140 mg subcut UD 11/27/24 11/27/24 History pen injector (Neha Carter) ezetimibe 10 mg tablet 10 mg PO DAILY 11/27/24 11/27/24 History folic acid 400 mcg tablet 0.4 mg PO DAILY 11/27/24 11/27/24 History furosemide 20 mg tablet 20 mg PO DAILY PRN Edema 11/27/24 11/27/24 History isosorbide mononitrate 60 mg 60 mg PO DAILY 11/27/24 11/27/24 History tablet,extended release 24 hr linaclotide 290 mcg capsule 290 mcg PO DAILYBB 11/27/24 11/27/24 History (Linzess) metoprolol succinate 25 mg 25 mg PO HS 11/27/24 11/27/24 History tablet,extended release 24 hr multivitamin 1 tab PO DAILY 11/27/24 11/27/24 History nitroglycerin 0.4 mg sublingual 0.4 mg sublingual UD PRN Chest Pain 11/27/24 11/27/24 History tablet Past Med/Surg History Problem List (Updated 11/21/24 @ 01:49 by Kael Mahoney PA-C) Facial injury (Acute) Fall (Acute) ASCVD (arteriosclerotic cardiovascular disease) Syncope Orthostatic hypotension SOB (shortness of breath) on exertion Parkinson's disease Elevated troponin I level (Acute) Chest pain (Acute) Anxiety Depression Hyperlipidemia CAD (coronary artery disease) Peripheral arterial disease Hypertension (Chronic) Medical History Mixed hyperlipidemia Multiple vessel coronary artery disease Atrial flutter Inguinal hernia Surgical History S/P tonsillectomy Family History Other Asthma Denies family history of Hypertension Social History Smoking Status: Former smoker Tobacco Type: Cigarettes Second Hand Exposure: No; Do You Dip or Chew Tobacco: No; Hx Alcohol Use: No Hx Substance Use: No Preferred Language: Malay Communication Ability: Effective 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 Has mild tremors Head- atraumatic Eyes- PERRL. ENT- oropharynx clear Neck- supple, no JVD. Lungs- clear to auscultation no wheezing or crackles Heart- regular rhythm; no murmur, no gallop. Abdomen- normal bowel sounds, soft, nontender, no distension Extremities- no pretibial edema, no erythema seen Neuro- alert, oriented PERRL, no facial palsy; no dysarthria; moves extremities Results & Data Results & Data Vital Signs (Past 12 Hours) Vital Signs Temp Pulse Pulse Resp BP BP Pulse Ox 11/27/24 06:35 51 L 16 192/91 H 98 11/27/24 05:45 50 L 18 168/77 H 93 11/27/24 04:46 53 L 11/27/24 04:39 51 L 18 97 11/27/24 04:39 50 L 19 156/82 H 97 11/27/24 04:39 11/27/24 04:06 36.6 C 50 L 22 117/69 97 O2 Del Method 11/27/24 06:35 Room Air 11/27/24 05:45 Room Air 11/27/24 04:46 11/27/24 04:39 Room Air 11/27/24 04:39 Room Air 11/27/24 04:39 Room Air 11/27/24 04:06 Room Air Diagnostic Findings Laboratory Results WBC 8.79 K/ul (4.8-10.8) 11/27/24 04:33 RBC 4.54 M/uL (4.70-6.10) L 11/27/24 04:33 Hgb 13.9 g/dl (14.0-18.0) L 11/27/24 04:33 Hct 40.5 % (42.0-52.0) L 11/27/24 04:33 MCV 89.2 fL (80.0-100.0) 11/27/24 04:33 MCH 30.6 pg (25.0-34.0) 11/27/24 04:33 MCHC 34.3 g/dL (32.0-36.0) 11/27/24 04:33 RDW Std Deviation 43.1 fL (36.4-46.3) 11/27/24 04:33 RDW Coeff of Lanre 13.2 % (11.5-14.5) 11/27/24 04:33 Plt Count 233 K/uL (130-400) 11/27/24 04:33 MPV 10.0 fL (9.4-12.4) 11/27/24 04:33 Immature Gran % (Auto) 0.2 % 11/27/24 04:33 Neut % (Auto) 70.8 % 11/27/24 04:33 Lymph % (Auto) 16.0 % 11/27/24 04:33 [place] % (Auto) 9.4 % 11/27/24 04:33 Eos % (Auto) 2.7 % 11/27/24 04:33 Baso % (Auto) 0.9 % 11/27/24 04:33 Neut # (Auto) 6.21 K/uL (1.40-6.50) 11/27/24 04:33 Lymph # (Auto) 1.41 K/uL (1.20-3.40) 11/27/24 04:33 [place] # (Auto) 0.83 K/uL (0.11-0.59) H 11/27/24 04:33 Eos # (Auto) 0.24 K/uL (0.00-0.50) 11/27/24 04:33 Baso # (Auto) 0.08 K/uL (0.00-0.20) 11/27/24 04:33 Immature Gran # (Auto) 0.02 K/uL (0.01-0.20) 11/27/24 04:33 PT 10.7 Seconds (9.0-12.0) 11/27/24 06:16 INR 1.0 (0.9-1.1) 11/27/24 06:16 Sodium 136 mmol/L (136-145) 11/27/24 04:33 Potassium 4.2 mmol/L (3.5-5.1) 11/27/24 04:33 Chloride 102 mmol/L (98-107) 11/27/24 04:33 Carbon Dioxide 27 mmol/L (21-32) 11/27/24 04:33 Anion Gap 7 (3-11) 11/27/24 04:33 BUN 24 mg/dl (6-23) H 11/27/24 04:33 Creatinine 1.15 mg/dl (0.6-1.4) 11/27/24 04:33 Est Cr Clr Drug Dosing 58.3 ml/min 11/27/24 04:33 eGFR 64.74 11/27/24 04:33 BUN/Creatinine Ratio 20.9 (10-20) H 11/27/24 04:33 Glucose 114 mg/dl (70-99(Fasting)) H 11/27/24 04:33 Calcium 9.5 mg/dl (8.6-10.3) 11/27/24 04:33 Magnesium 2.1 mg/dl (1.7-2.4) 11/27/24 04:33 Total Bilirubin 0.5 mg/dl (0.2-1.0) 11/27/24 04:33 AST 16 U/L (13-39) 11/27/24 04:33 ALT 3 U/L (7-52) L 11/27/24 04:33 Alkaline Phosphatase 75 U/L (34-104) 11/27/24 04:33 Troponin I High Sens 8.7 pg/ml (0-20) 11/27/24 04:33 Total Protein 6.8 gm/dl (6.0-8.3) 11/27/24 04:33 Albumin 4.2 gm/dl (3.4-5.0) 11/27/24 04:33 Globulin 2.6 gm/dl (2.5-4.0) 11/27/24 04:33 Albumin/Globulin Ratio 1.6 (0.9-2) 11/27/24 04:33 Lipase 14 U/L (11-82) 11/27/24 04:33 Impressions Chest X-Ray 11/27/24 04:07 EXAM: XR chest 1V portable CLINICAL HISTORY: Chest pain, nonspecific TECHNIQUE: Radiograph of chest was acquired. COMPARISON: FINDINGS: Unchanged prominence of bronchovascular markings noted bilaterally. Findings could be related to pulmonary congestion. Reticular changes seen in both lungs, more in lower lobes. No evidence of consolidation or collapse. No pulmonary nodules are identified. No evidence of pleural effusion or pleural thickening. The cardiomediastinal silhouette is within normal limits. No acute osseous abnormality. IMPRESSION: Unchanged prominence of bronchovascular markings noted bilaterally. Findings could be related to pulmonary congestion. Reticular changes seen in both lungs, more in lower lobes. Likely interstitial changes. No new findings Electronically signed by [place] 11-27-2024 05:56 AM ECG Additional Comments: ECG. A-fib with slow ventricular response rate of 53. Left axis deviation. Code Status & VTE Plan VTE Prophylaxis Plan VTE Prophylaxis will be ordered: Yes (1) Chest pain Chest pain type: unspecified Qualified Code(s): R07.9 - Chest pain, unspecified
[2024-11-27] MEDS ORDERED: NITROGLYCERIN SL 0.4 MG/TAB TAB SL PRN (08:55)
[2024-11-27] MEDS ORDERED: ACETAMINOPHEN 325 MG TAB PO PRN (08:55)
--- NOTE | 2024-11-27 09:47 | Cardiology Consultation ---
Date of Consultation November 27, 2024 Assessment & Plan (1) Chest pain: (2) ASCVD (arteriosclerotic cardiovascular disease): (3) Parkinson's disease: (4) Paroxysmal atrial flutter: Supervising Physician Co-Signing Physician Notes 79 yo man presenting with chest pain * Parkinson's * Multivessel CAD * Cath - 100% Mid LAD, 100% Prox RCA, 80% mid LCX - declined CT surgery * HTN * Hyperlipidemia * PAD (Carotid + LE) * + Afib/flutter () * SAH - no anticoagulation Plans: * LVEF 55-60% * Add Norvasc 5 mg po per day * Increase Imdur to 90 mg po per day * CAD * Check LDL * Continue Zeta 10 mg po per day * Consider PCSK9 * Continue Toprol XL 25 mg po per day * Continue ASA 81 mg po per day * Continue Plavix 75 mg po per day * K+ goal 4.5-5 * Mag goal >2 * Ambulate * Anginal pattern - exertional - worsening * Troponin not elevated with presentation- considering alternatives, such as GERD, 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 * Start PPI as adjunctive therapy * 61 min spent addressing challenges, educating and advancing daily plan of care History of Present Illness Reason for Consultation: Chest pain. Atrial flutter/fibrillation Requesting Physician: [facility] Hospitalist Service, Dr. Nicanor Keller Attending Physician: [facility] Hospitalist Service, Dr. Dakota Espinoza, DO History of Present Illness Past Medical and Surgical History Parkinson's disease, carbidopa levodopa increased to 3 times per day by neurology 2 weeks ago Severe multivessel coronary artery disease with diagnostic cardiac catheterization performed on October 22, 2023 demonstrating 100% mid LAD stenosis, 100% proximal RCA stenosis, not severely calcified 80% mid left circumflex stenosis. Patient declined for CT surgery. High risk PCI recommended in the event of a STEMI, otherwise medical management advised Hypertension Dyslipidemia with intolerance to statins Carotid occlusive disease Peripheral arterial disease Subarachnoid/subdural hemorrhage Erectile dysfunction Depression Cataract extraction Colonoscopy with polypectomies Arthroscopic left knee surgery Tonsillectomy Inguinal hernia repair Family History: Positive for CAD in father. Mother with old age. Social History: Reformed smoker, 25 pack years, quit circa 2022. No smokeless tobacco history. No alcohol. No illegal drug use. Retired, [employer]. Two children. Allergies Allergy/AdvReac Type Severity Reaction Status Date / Time bee venom protein (honey bee) Allergy Severe SWELLING, Verified 11/20/24 23:23 INTENSE ITCHING, HIVES gabapentin Allergy Unknown Unknown Verified 11/20/24 23:23 atorvastatin AdvReac Intermediate MUSCLE PAIN Verified 11/20/24 23:23 carbidopa [From Sinemet] AdvReac Intermediate Unknown/Family Verified 11/20/24 23:23 says only Sinemet, haven't tried Sinemet CR. levodopa [From Sinemet] AdvReac Intermediate Unknown/Family Verified 11/20/24 23:23 says only Sinemet, haven't tried Sinemet CR. Home Medications Medication Instructions Recorded Confirmed Type aspirin 81 mg tablet,delayed 81 mg PO DAILY 11/27/24 11/27/24 History release carbidopa ER 25 mg-levodopa 100 mg 1 tab PO UD 11/27/24 11/27/24 History tablet,extended release citalopram 20 mg tablet 20 mg PO DAILY 11/27/24 11/27/24 History clonazepam 0.5 mg tablet 0.5 mg PO BID PRN Anxiety 11/27/24 11/27/24 History clopidogrel 75 mg tablet 75 mg PO DAILY 11/27/24 11/27/24 History evolocumab 140 mg/mL subcutaneous 140 mg subcut UD 11/27/24 11/27/24 History pen injector (Neha Carter) ezetimibe 10 mg tablet 10 mg PO DAILY 11/27/24 11/27/24 History folic acid 400 mcg tablet 0.4 mg PO DAILY 11/27/24 11/27/24 History furosemide 20 mg tablet 20 mg PO DAILY PRN Edema 11/27/24 11/27/24 History isosorbide mononitrate 60 mg 60 mg PO DAILY 11/27/24 11/27/24 History tablet,extended release 24 hr linaclotide 290 mcg capsule 290 mcg PO DAILYBB 11/27/24 11/27/24 History (Linzess) metoprolol succinate 25 mg 25 mg PO HS 11/27/24 11/27/24 History tablet,extended release 24 hr multivitamin 1 tab PO DAILY 11/27/24 11/27/24 History nitroglycerin 0.4 mg sublingual 0.4 mg sublingual UD PRN Chest Pain 11/27/24 11/27/24 History tablet Patient History Medical History NSTEMI (non-ST elevated myocardial infarction) Mixed hyperlipidemia Multiple vessel coronary artery disease Atrial flutter Inguinal hernia Surgical History S/P tonsillectomy Family History Other Asthma Denies family history of Hypertension Social History Smoking Status: Former smoker Tobacco Type: Cigarettes Second Hand Exposure: No; Do You Dip or Chew Tobacco: No; Hx Alcohol Use: No Hx Substance Use: No Preferred Language: [place]er Communication Ability: Effective Rn Provider Relations Required: No Beliefs That Will Affect Care: None Current Living Situation: Family Other Information That Helps Us Care for You: No Feels Safe at Home: Yes Safety Concerns: Feels Safe At This Time Assistive Devices: Cane, Denture - Upper, Denture - Lower, Glasses and Walker Review of Systems Review of Systems: Complete Review of Systems is as stated above, negative, or noncontributory. Physical Exam Physical Exam: Glasses Dentures No elevation in JVP S1S2, 2/6 systolic murmur CTA B No C/C/E Extremities warm and well-perfused Results & Data Vital Signs (Past 12 Hours) Vital Signs Temp Pulse Pulse Resp BP BP Pulse Ox 11/27/24 08:56 36.4 C L 50 L 16 189/89 H 96 11/27/24 08:14 48 L 20 188/119 H 97 11/27/24 06:35 51 L 16 192/91 H 98 11/27/24 05:45 50 L 18 168/77 H 93 11/27/24 04:46 53 L 11/27/24 04:39 51 L 18 97 11/27/24 04:39 50 L 19 156/82 H 97 11/27/24 04:39 11/27/24 04:06 36.6 C 50 L 22 117/69 97 O2 Del Method 11/27/24 08:56 Room Air 11/27/24 08:14 Room Air 11/27/24 06:35 Room Air 11/27/24 05:45 Room Air 11/27/24 04:46 11/27/24 04:39 Room Air 11/27/24 04:39 Room Air 11/27/24 04:39 Room Air 11/27/24 04:06 Room Air Laboratory Results Cardiac Enzymes 11/27/24 Range/Units 04:33 AST 16 (13-39) U/L Troponin I High Sens 8.7 (0-20) pg/ml Coagulation 11/27/24 11/27/24 Range/Units 04:33 06:16 PT Cancelled 10.7 CBC 11/27/24 Range/Units 04:33 WBC 8.79 (4.8-10.8) K/ul RBC 4.54 L (4.70-6.10) M/uL Hgb 13.9 L (14.0-18.0) g/dl Hct 40.5 L (42.0-52.0) % Plt Count 233 (130-400) K/uL Neut # (Auto) 6.21 (1.40-6.50) K/uL Lymph # (Auto) 1.41 (1.20-3.40) K/uL [place] # (Auto) 0.83 H (0.11-0.59) K/uL Eos # (Auto) 0.24 (0.00-0.50) K/uL Baso # (Auto) 0.08 (0.00-0.20) K/uL Comprehensive Metabolic Panel 11/27/24 Range/Units 04:33 Sodium 136 (136-145) mmol/L Potassium 4.2 (3.5-5.1) mmol/L Chloride 102 (98-107) mmol/L Carbon Dioxide 27 (21-32) mmol/L BUN 24 H (6-23) mg/dl Creatinine 1.15 (0.6-1.4) mg/dl Glucose 114 H (70-99(Fasting)) mg/dl Calcium 9.5 (8.6-10.3) mg/dl AST 16 (13-39) U/L ALT 3 L (7-52) U/L Alkaline Phosphatase 75 (34-104) U/L Total Protein 6.8 (6.0-8.3) gm/dl Albumin 4.2 (3.4-5.0) gm/dl Intake and Output 11/26/24 11/27/2411/27/25 22:59 06:59 14:59 Intake Total 500 / 500 Balance 500 / 500 Intake: IV 500 / 500 Sodium Chloride 0.9% 500 ml @ 500 / 500 999 mls/hr IV .Q31M ONE Rx#: [id number] Other: Weight 88.4 kg 88.4 kg Weight Measurement Method Chair Scale Chair Scale Patient Weight 11/28/24 06:59 Weight 88.4 kg Diagnostic Findings June 05, 2024 TTE: Normal left ventricular systolic function. EF 55 to 60%. Moderate sized septal and inferior wall motion abnormality with hypokinesis to akinesis of the segments. Moderate focal calcification of noncoronary aortic valve cusp. Moderate aortic valve sclerosis without significant aortic valve stenosis. Telemetry: Sinus with atrial ectopy and sinus arrhythmia. ? artifact versus paroxysmal atrial flutter Medications Administered Current Inpatient Medications Acetaminophen (Acetaminophen 325 Mg Tab) 650 mg PO Q4H PRN PRN Reason: Pain or Fever Stop: 12/27/24 08:54 Aspirin (Aspirin 81 Mg Ectab) 81 mg PO DAILY PHUONG Stop: 12/27/24 08:59 Last Admin: 11/27/24 11:11 Dose: 81 mg Carbidopa/Levodopa (Carbidopa/Levodopa 25/100mg Ext Rel Tab) 1 tab PO 0800,1130 ,1730 PHUONG Stop: 12/27/24 08:54 Last Admin: 11/27/24 11:14 Dose: Not Given Citalopram Hydrobromide (Citalopram 20 Mg Tab) 20 mg PO DAILY PHUONG Stop: 12/27/24 08:59 Last Admin: 11/27/24 11:09 Dose: 20 mg Clonazepam (Clonazepam 0.5 Mg Tab) 0.5 mg PO BID PRN PRN Reason: Anxiety Stop: 12/27/24 08:54 Clopidogrel Bisulfate (Clopidogrel Bisulfate 75 Mg Tab) 75 mg PO DAILY PHUONG Stop: 12/27/24 08:59 Last Admin: 11/27/24 11:10 Dose: 75 mg Ezetimibe (Ezetimibe 10 Mg Tab) 10 mg PO DAILY PHUONG Stop: 12/27/24 08:59 Last Admin: 11/27/24 11:09 Dose: 10 mg Folic Acid (Folic Acid 400 Mcg Tab) 400 mcg PO DAILY PHUONG Stop: 12/27/24 08:59 Last Admin: 11/27/24 11:10 Dose: 400 mcg Isosorbide Mononitrate (Isosorbide [place] Extended Rel 60 Mg Tabcr) 60 mg PO DAILY [facility] Stop: 12/27/24 08:59 Last Admin: 11/27/24 11:10 Dose: 60 mg Linaclotide (Linaclotide 145 Mcg Capsule) 290 mcg PO DAILYBB [facility] Stop: 12/27/24 09:29 Last Admin: 11/27/24 11:10 Dose: 290 mcg Metoprolol Succinate (Metoprolol Succ 25mg Ext Rel Tab) 25 mg PO HS [facility] Stop: 12/27/24 20:59 Multivitamins (Multivitamin Tab) 1 tab PO QAM [facility] Stop: 12/27/24 09:14 Last Admin: 11/27/24 11:12 Dose: Not Given Nitroglycerin (Nitroglycerin Sl 0.4 Mg/Tab Tab) 0.4 mg SL Q5M PRN PRN Reason: Chest Pain Stop: 12/27/24 08:54 PG Care Time/CCT Total # of Minutes Spent Total Time Spent with Patient: Total time spent is greater than 50% in coordination of care (as documented) at patient's floor/unit and/or counseling patient: Coding Level of Care Code 86320 IN/OBS CONSULT LVL 5,80M Diagnoses Chest pain R07.9 Chest pain type: unspecified ASCVD (arteriosclerotic cardiovascular disease) I25.10 Parkinson's disease, unspecified whether dyskinesia present, unspecified whether manifestations fluctuate G20.A1 Dyskinesia presence: unspecified whether dyskinesia Fluctuating manifestations: unspecified whether manifestations fluctuate Paroxysmal atrial flutter I48.92 (1) Chest pain Chest pain type: unspecified Qualified Code(s): R07.9 - Chest pain, unspecif ied (3) Parkinson's disease Dyskinesia presence: unspecified whether dyskinesia Fluctuating brett festations: unspecified whether manifestations fluctuate Qualified Code(s): G20.A1 - Parkinson's disease without dyskinesia, without mention of fluctuations
[2024-11-27 10:42] LABS: Appearance Urine Clear (Clear); Bacteria Urine Automated None Seen (None Seen); Cast Urine Automated 0-2 /lpf (0-2); Epithelial Cell Urine Auto 0-2 /hpf (0-2); Glucose Urine UA Negative (Negative); RBC Urine Automated 0-2 /hpf (0-2); WBC Urine Automated 0-5 /hpf (0-5)
[2024-11-27] MEDS: EZETIMIBE 10 MG TAB PO SCH (11:09)
[2024-11-27] MEDS: CITALOPRAM 20 MG TAB PO SCH (11:09)
[2024-11-27] MEDS: CLOPIDOGREL BISULFATE 75 MG TAB PO SCH (11:10)
[2024-11-27] MEDS: LINACLOTIDE 145 MCG CAPSULE PO SCH (11:10)
[2024-11-27] MEDS: FOLIC ACID 400 MCG TAB PO SCH (11:10)
[2024-11-27] MEDS: ISOSORBIDE MONO EXTENDED REL 60 MG TABCR PO SCH (11:10)
[2024-11-27] MEDS: ASPIRIN 81 MG ECTAB PO SCH (11:11)
[2024-11-27] MEDS: CARBIDOPA/LEVODOPA 25/100MG EXT REL TAB PO SCH (11:11)
[2024-11-27] MEDS: MULTIVITAMIN TAB PO SCH (11:12)
--- NOTE | 2024-11-27 13:55 | Communication Note ---
Date of Service: November 27, 2024 Patient seen and evaluated. Denies any chest pain. Troponins negative x 2 sets Suspect patient having some anginal symptoms in the setting of uncontrolled hypertension. Discussion with cardiology. Increase Imdur, start amlodipine for blood pressure control. Anticipate discharge tomorrow if the blood pressure is improved and tolerates changing medications
[2024-11-27] MEDS: ISOSORBIDE MONO EXTENDED REL 30 MG TABCR PO ONE (14:47)
[2024-11-27] MEDS: METOPROLOL SUCC 25MG EXT REL TAB PO SCH (20:44)
[2024-11-28] MEDS: ENALAPRILAT 1.25 MG in DEXTROSE 5% 25 ML IV ONE (00:53)
[2024-11-28] MEDS: clonazePAM 0.5 MG TAB PO PRN (01:50)
[2024-11-28 07:08] LABS: Hemoglobin A1C 5.9 % (4.5-5.6)
--- NOTE | 2024-11-28 08:01 | Cardiology Progress Note ---
Date of Service November 28, 2024 Assessment & Plan (1) Angina concurrent with and due to arteriosclerosis of coronary artery: Plan 79 yo man presenting with chest pain * Parkinson's * Multivessel CAD * Cath - 100% Mid LAD, 100% Prox RCA, 80% mid LCX - declined CT surgery * HTN * Hyperlipidemia * PAD (Carotid + LE) * + Afib/flutter () * SAH - no anticoagulation Plans: * LVEF 55-60% * Continue Norvasc to 5 mg po per day * Continue Imdur to 90 mg po per day * CAD * Check LDL; drive LDL as low as possible - goal <55 * Continue Zetia 10 mg po per day * Consider PCSK9 * Continue Toprol XL 25 mg po per day * Continue ASA 81 mg po per day * Continue Plavix 75 mg po per day * K+ goal 4.5-5 * Mag goal >2 * Ambulate * Angina - no angina overnight * Troponin not elevated with presentation- considering alternatives, such as GERD, as a driver/guide of patient's symptoms. * Start PPI as adjunctive therapy * 52 min spent addressing challenges, educating and advancing daily plan of care * Plans to follow up with [facility] - 01/19/2025 with Marcia Collins * Please call back with any additional questions Kee Law Admission and Anticipated Discharge Date Admission Date: November 27, 2024 Subjective Events Overnight: * None reported * Telemetry - no events Subjective: * No angina reported Review of Systems 2 Review of Systems: All systems reviewed & are unremarkable except as noted in HPI & below Physical Exam Physical Exam: No elevation in JVP S1S2, 2/6 systolic murmur CTA B No C/C/E Extremities warm and well-perfused Results & Data Vital Signs (Past 12 Hours) Vital Signs Temp Pulse Pulse Resp BP Pulse Ox O2 Del Method 11/28/24 05:02 36.6 C 73 22 179/89 H 94 Room Air 11/28/24 01:45 61 161/69 H 11/27/24 23:20 36.6 C 61 18 191/75 H 98 Room Air 11/27/24 22:45 54 L Laboratory Results Cardiac Enzymes 11/27/24 Range/Units 11:38 Troponin I High Sens 8.3 (0-20) pg/ml Intake and Output 11/27/24 11/28/24 11/28/24 22:59 06:59 14:59 Intake Total 76 / 76 Balance 76 / 76 Intake: IV Enalaprilat 1.25 mg In Dextrose 5% 25 ml @ 100 mls/hr IV NOW ONE Rx#:[id number] Oral 50 / 50 Other: # Unmeasured Voids 2 Weight 88.2 kg Weight Measurement Method [facility] Medications Administered Current Inpatient Medications Acetaminophen (Acetaminophen 325 Mg Tab) 650 mg PO Q4H PRN PRN Reason: Pain or Fever Stop: 12/27/24 08:54 Amlodipine Besylate (Amlodipine Besylate 5 Mg Tab) 5 mg PO QAM [facility] Stop: 12/28/24 08:59 Aspirin (Aspirin 81 Mg Ectab) 81 mg PO DAILY PHUONG Stop: 12/27/24 08:59 Last Admin: 11/27/24 11:11 Dose: 81 mg Carbidopa/Levodopa (Carbidopa/Levodopa 25/100mg Ext Rel Tab) 1 tab PO 0800,1130,1730 PHUONG Stop: 12/27/24 08:54 Last Admin: 11/27/24 16:32 Dose: 1 tab Citalopram Hydrobromide (Citalopram 20 Mg Tab) 20 mg PO DAILY PHUONG Stop: 12/27/24 08:59 Last Admin: 11/27/24 11:09 Dose: 20 mg Clonazepam (Clonazepam 0.5 Mg Tab) 0.5 mg PO BID PRN PRN Reason: Anxiety Stop: 12/27/24 08:54 Last Admin: 11/28/24 01:50 Dose: 0.5 mg Clopidogrel Bisulfate (Clopidogrel Bisulfate 75 Mg Tab) 75 mg PO DAILY PHUONG Stop: 12/27/24 08:59 Last Admin: 11/27/24 11:10 Dose: 75 mg Ezetimibe (Ezetimibe 10 Mg Tab) 10 mg PO DAILY PHUONG Stop: 12/27/24 08:59 Last Admin: 11/27/24 11:09 Dose: 10 mg Folic Acid (Folic Acid 400 Mcg Tab) 400 mcg PO DAILY PHUONG Stop: 12/27/24 08:59 Last Admin: 11/27/24 11:10 Dose: 400 mcg Isosorbide Mononitrate (Isosorbide [place] Extended Rel 30 Mg Tabcr) 90 mg PO DAILY [facility] Stop: 08/24/25 08:59 Linaclotide (Linaclotide 145 Mcg Capsule) 290 mcg PO DAILYBB [facility] Stop: 12/27/24 09:29 Last Admin: 11/28/24 06:39 Dose: 290 mcg Metoprolol Succinate (Metoprolol Succ 25mg Ext Rel Tab) 25 mg PO HS [facility] Stop: 12/27/24 20:59 Last Admin: 11/27/24 20:44 Dose: Not Given Multivitamins (Multivitamin Tab) 1 tab PO QAM [facility] Stop: 12/27/24 09:14 Last Admin: 11/27/24 11:12 Dose: Not Given Nitroglycerin (Nitroglycerin Sl 0.4 Mg/Tab Tab) 0.4 mg SL Q5M PRN PRN Reason: Chest Pain Stop: 12/27/24 08:54 PG Care Time/CCT Total # of Minutes Spent Total Time Spent with Patient: Total time spent is greater than 50% in coordination of care (as documented) at patient's floor/unit and/or counseling patient: Coding Level of Care Code 41010 SUB INP/OBS CARE 3/50MIN Diagnoses Angina concurrent with and due to arteriosclerosis of coronary artery I25.119
[2024-11-28] MEDS: ISOSORBIDE MONO EXTENDED REL 30 MG TABCR PO SCH (09:46)
[2024-11-28 11:16] VITALS: RESP 18; TEMP 97.5; O2SAT 97
--- NOTE | 2024-11-28 13:07 | Discharge Summary ---
Discharge Summary Date of Service November 28, 2024 Principal Dx & Hospital Course #1 = Principal Diagnosis (1) Angina concurrent with and due to arteriosclerosis of coronary artery: (2) Hypertension, uncontrolled: (3) Paroxysmal atrial flutter: (4) ASCVD (arteriosclerotic cardiovascular disease): (5) Parkinson's disease: (6) Peripheral arterial disease: Plan Patient is a 79-year-old gentleman with known coronary artery disease presented to the emergency room with complaints of chest pain. In the emergency room was noted to be quite hypertensive, troponins were negative. Patient was admitted for further observation. Patient's troponins were trended and were negative times all sets. There is no significant arrhythmias on telemetry monitoring. He was evaluated by cardiology. He is already determined that he is not a candidate for any further intervention on his coronary artery disease and patient is a candidate for medical management. His Imdur was increased and Norvasc was added for better blood pressure control. With these interventions patient's blood pressure significantly improved. Had no further angina. Patient was up and ambulatory in his room. Protonix was also started for possible GI source of his chest pain. Patient was seen by case management they will coordinate home health care for some home therapy in the setting of his Parkinson's and will be discharged home to outpatient care Notes For Next Care Provider Continue to monitor blood pressure and make adjustments as needed Medication Changes From Visit Imdur dose increased Norvasc added for better blood pressure control Admission HPI Per Admitting Provider 79-year-old male with past medical history significant for dyslipidemia, prediabetes, COPD, peripheral vascular disease, history of CAD, right carotid stenosis, left carotid occlusion, orthostatic hypotension, paroxysmal atrial flutter, history of heart failure, osteoarthritis, Parkinson's disease, history of tobacco use, history of subdural hemorrhage, depression, who lives at home and the son is living with him currently, presents with chest pain. Last night 10:30 PM patient noticed chest pain. Took 1 nitro did not subside. Again he took another nitro early hours today which also did not help his pain and came to the ER. Pain is across the chest. No radiation. Has some dizziness. No headache. Some shortness of breath. No sweating. No cough. No fevers. No runny nose or sore throat. No abdominal pain. Usually constipated and uses stool softeners. Denies any blood in stools. Micturating okay. Patient says yesterday his blood pressure was high in 200s. He says last night blood pressure was okay. Currently seems resting comfortably. Past medical history. As mentioned above Past surgical history. Complex cataract surgery. Left heart catheterization. Colonoscopy. Colonoscopy with biopsy. Knee arthroscopy. Rectal abscess. Tonsillectomy. Repair of inguinal hernia. Social history. . Quit smoking 2002. Smoked 0.8 packs a day for 30 years. No alcohol use but no drug use. Family history. Father had mental disorder. NC. Mother had NC. Admission Exam Per Admitting Provider See H&P Discharge Exam Constitutional: Alert, nontoxic HEENT: Mucous membranes moist. Lungs: Clear to auscultation, decreased, no wheezes rales or rhonchi CV: S1-S2, regular Abdomen: Soft, nontender, nondistended Extremities: No significant edema Neuro: No focal deficits Psych: Cooperative, normal mood Updated Medication List Medication Instructions Recorded Confirmed Type aspirin 81 mg tablet,delayed 81 mg PO DAILY 11/27/24 11/27/24 History release carbidopa ER 25 mg-levodopa 100 mg 1 tab PO UD 11/27/24 11/27/24 History tablet,extended release citalopram 20 mg tablet 20 mg PO DAILY 11/27/24 11/27/24 History clonazepam 0.5 mg tablet 0.5 mg PO BID PRN Anxiety 11/27/24 11/27/24 History clopidogrel 75 mg tablet 75 mg PO DAILY 11/27/24 11/27/24 History evolocumab 140 mg/mL subcutaneous 140 mg subcut UD 11/27/24 11/27/24 History pen injector (Neha Carter) ezetimibe 10 mg tablet 10 mg PO DAILY 11/27/24 11/27/24 History folic acid 400 mcg tablet 0.4 mg PO DAILY 11/27/24 11/27/24 History furosemide 20 mg tablet 20 mg PO DAILY PRN Edema 11/27/24 11/27/24 History linaclotide 290 mcg capsule 290 mcg PO DAILYBB 11/27/24 11/27/24 History (Linzess) metoprolol succinate 25 mg 25 mg PO HS 11/27/24 11/27/24 History tablet,extended release 24 hr multivitamin 1 tab PO DAILY 11/27/24 11/27/24 History nitroglycerin 0.4 mg sublingual 0.4 mg sublingual UD PRN Chest Pain 11/27/24 11/27/24 History tablet amlodipine 5 mg tablet 5 mg PO QAM #30 tabs 11/28/24 Rx isosorbide mononitrate 60 mg 90 mg (1.5 x 60 mg) PO DAILY #60 11/28/24 Rx tablet,extended release 24 hr tabs pantoprazole 40 mg tablet,delayed 40 mg PO QAM #30 tabs 11/28/24 Rx release Hospital Stay Data Consultations 11/27/24 05:14 ED Decision to Admit Stat Diagnostic Imagining Performed Reviewed imaging, laboratory and diagnostic studies. Pertinent findings as below. Echocardiogram shows ejection fraction 55 to 60% calcific aided aortic valve. I refer to the full report for details WBCs 8.7 Hemoglobin 13.9 Electrolytes within normal range Creatinine 1.15 Urinalysis unremarkable Hemoglobin A1c 5.9% Troponin negative x 2 sets Pending Results Patient Have Any Pending Studies at Discharge: No Discharge Instructions Given to Patient (Per Discharging Provider) Follow-up with your PCP for ongoing monitoring of your blood pressure Continue to work with home health detention Health Attestation I certify that this patient is under my care and that I, or a physicians customer relations assistant working with me, had a face to-face encounter that meets the home health [id number] encounter requirements with this patient. The encounter with the patient was in whole, or in part, for the following medical condition, which is the primary reason for home health care (list medical condition): I certify that, based on my findings, the following services are medically necessary home health services: My clinical findings support the need for the above services because: Further, I certify that my clinical findings support that this patient is homebound (i.e. absences from home require considerable and taxing effort and are for medical reasons or synagogue services or infrequently or of short duration when for other reasons) because: Certification for Home Health Services: Based on the above findings, I certify that this patient is confined to the home and needs intermittent shelter care, physical therapy and/or speech therapy or continues to need occupational therapy. The patient is under my care, and I have initiated the establishment of the plan of care. This patient will be followed by a physician who will periodically review the plan of care. Total Time Total Time Spent Total Time Spent (In Minutes): 32
[2024-11-28 14:53] VITALS: PULSE 68
[2024-11-28 15:47] VITALS: BP 121/69
--- NOTE | 2024-11-28 22:09 | Electrocardiogram Report ---
Test Reason : Blood Pressure : */* mmHG Vent. Rate : 66 BPM Atrial Rate : * BPM P-R Int : * ms QRS Dur : 100 ms QT Int : 420 ms P-R-T Axes : * -41 15 degrees QTcB Int : 440 ms Sinus rhythm Left axis deviation Moderate voltage criteria for LVH, may be normal variant ( R in aVL , Faisal product ) Abnormal ECG When compared with ECG of 27-Nov-2024 04:18, (unconfirmed) Sinus rhythm has replaced Atrial fibrillation Confirmed by Jn Miller ([id number]) on 11/28/2024 10:09:13 PM Referred By: REFERRED SELF Confirmed By: Jn Miller
--- NOTE | 2024-11-29 05:47 | Electrocardiogram Report ---
Test Reason : Blood Pressure : */* mmHG Vent. Rate : 53 BPM Atrial Rate : * BPM P-R Int : * ms QRS Dur : 96 ms QT Int : 438 ms P-R-T Axes : * -37 38 degrees QTcB Int : 410 ms Poor data quality, interpretation may be adversely affected Sinus bradycardia Premature atrial complexes Left axis deviation Minimal voltage criteria for LVH, may be normal variant ( R in aVL ) Abnormal ECG When compared with ECG of 20-Nov-2024 22:15, Criteria for Septal infarct are no longer Present Confirmed by Jn Miller ([id number]) on 11/29/2024 5:46:29 AM Referred By: REFERRED SELF Confirmed By: Jn Miller
== END 2024-11-28 17:01 | disposition home health service (06) | DRG 303 ==
LOC: ED 04:04 → 4W 06:15

== ENCOUNTER 2025-04-17 05:03 | Inpatient (IN) ==
[2025-04-17 05:34] LABS: Hematocrit (blood only) 42.9 % (42.0-52.0); Hemoglobin 14.6 g/dL (14.0-18.0); Immature Granulocytes # (auto) 0.02 K/uL (0.01-0.20); Immature Granulocytes % (auto) 0.2 %; Mean Corpuscular Hemoglobin 29.1 pg (25.0-34.0); Mean Corpuscular Volume 85.6 fL (80.0-100.0); Platelet Count 258 K/uL (130-400); RDW Standard Deviation 43.3 fL (36.4-46.3); Red Blood Count 5.01 M/uL (4.70-6.10); White Blood Count 8.80 K/ul (4.8-10.8)
[2025-04-17] MEDS: SODIUM CHLORIDE 0.9% 500 ML IV STA (05:37)
[2025-04-17 05:51] LABS: Alanine Aminotransferase 4.0 U/L (7-52); Albumin Globulin Ratio 1.5 (0.9-2); Albumin Level 4.3 gm/dl (3.4-5.0); Alkaline Phosphatase 78.0 U/L (34-104); Anion Gap 8.0 (3-11); Bilirubin,Total 0.6 mg/dl (0.2-1.0); Blood Urea Nitrogen 29.0 mg/dl (6-23); Calcium 9.6 mg/dl (8.6-10.3); Carbon Dioxide 25.0 mmol/L (21-32); Chloride 103.0 mmol/L (98-107); Creatinine Clr Calc Pharmacy 55.8 ml/min; Globulin 2.9 gm/dl (2.5-4.0); Glucose 115.0 mg/dl (70-99(Fasting)); Lipase 9.0 U/L (11-82); Potassium 3.9 mmol/L (3.5-5.1); Sodium 136.0 mmol/L (136-145); Total Protein 7.2 gm/dl (6.0-8.3)
[2025-04-17 06:08] LABS: INR 1.0 (0.9-1.1); Prothrombin Time 10.5 Seconds (9.0-12.0)
--- NOTE | 2025-04-17 07:11 | Emergency Department Note ---
Impression & Plan Colitis, Diverticulitis ED Provider Note NAME: BECKY MCCANN AGE: 80 SEX: M : 1945 ARRIVES VIA: Ambulance INFORMANT: Patient, ED PROVIDER(S): Eneida Dominguez MD CHIEF COMPLAINT: Rectal bleeding HPI: This is an 80-year-old male present for rectal bleeding. Patient states that he began having bleeding over the past 24 hours. He notes painful low rectal bleeding. He notes bright red blood in the toilet bowl. He notes it is painful in his abdomen/rectum. Reports no fevers or chills. No nausea or vomiting. No urinary symptoms. No chest pain or shortness of breath. ROS: See above HPI for pertinent positives & negatives. A total of 10 systems reviewed and were otherwise negative. PAST MEDICAL HISTORY: See Below PAST SURGICAL HISTORY: See Below FAMILY HISTORY: See Below SOCIAL HISTORY: See Below HOME MEDICATIONS: See Below ALLERGIES: See Below VITALS: See Below PHYSICAL EXAMINATION: General: resting comfortably in no acute distress Head: Normocephalic and atraumatic Eyes: Normal inspection, extraocular muscles intact Ear, nose, throat: Normal external exam Neck: Normal range of motion Respiratory: lungs clear to auscultation bilaterally Cardiovascular: Regular rate/rhythm, no murmur GI: soft, nontender, no guarding or rebound Extremities: nontender, moves all extremities Neuro: The patient awake and alert, appropriately conversive, no focal deficits, symmetric faces Skin: Warm, dry, and intact MEDICAL DECISION MAKING: This is an 80-year-old male present for rectal bleeding. Will do screening blood work. Patient has a fairly soft nontender abdomen. He does have rectal bleeding, Hemoccult positive on rectal exam. No obvious hemorrhoids noted. - Bloodwork is reviewed showing no significant leukocytosis, anemia, electrolyte or creatinine abnormality -CT of the abdomen/pelvis reveals acute colitis as well as acute diverticulitis. This would likely explain the patient's current GI bleeding. Will admit the patient for these multiple findings as well as GI bleed. -Discussed care with [facility] hospitalist service. Differential diagnosis: Colitis, diverticulitis, AVM, hemorrhoids, appendicitis, cholecystitis Independent History obtained from: [facility] interpreted by me: ECG: ECG independently interpreted by me with atrial flutter with variable AV block, rate of 54 with left acicular block, normal QRS, normal QTc, no ST segment elevations consistent with STEMI criteria Cardiac Monitoring: An order was placed for continuous cardiac monitoring. The monitor shows a rate of 55 with sinus rhythm. Past Med/Surg History Problem List (Updated 04/17/25 @ 14:36 by Eneida Dominguez MD) Diverticulitis (Acute) Colitis (Acute) Acute diverticulitis Colitis, acute Hypertension, uncontrolled Angina concurrent with and due to arteriosclerosis of coronary artery CAD (coronary artery disease) (Acute) Chest pain (Acute) Paroxysmal atrial flutter (Acute) ASCVD (arteriosclerotic cardiovascular disease) Syncope Orthostatic hypotension SOB (shortness of breath) on exertion Parkinson's disease (Acute) Elevated troponin I level (Acute) Chest pain (Acute) Anxiety Depression Hyperlipidemia CAD (coronary artery disease) Peripheral arterial disease Hypertension (Chronic) Medical History NSTEMI (non-ST elevated myocardial infarction) Mixed hyperlipidemia Multiple vessel coronary artery disease Atrial flutter Inguinal hernia Surgical History S/P tonsillectomy Family History Other Asthma Denies family history of Hypertension Social History Smoking Status: Former smoker Tobacco Type: Cigarettes Second Hand Exposure: No; Do You Dip or Chew Tobacco: No; Hx Alcohol Use: No Hx Substance Use: No Preferred Language: Turkmen Communication Ability: Effective Debone Supervisor Required: No Beliefs That Will Affect Care: None Current Living Situation: Family Feels Safe at Home: Yes Assistive Devices: Cane and Walker Allergies Allergies Allergy/AdvReac Type Severity Reaction Status Date / Time bee venom protein (honey bee) Allergy Severe SWELLING, Verified 04/02/25 00:37 INTENSE ITCHING, HIVES atorvastatin AdvReac Intermediate MUSCLE PAIN Verified 04/02/25 00:37 carbidopa [From Sinemet] AdvReac Intermediate Unknown/Family Verified 04/02/25 00:37 says only Sinemet, haven't tried Sinemet CR. gabapentin AdvReac Intermediate "CAN'T Verified 04/02/25 00:37 HANDLE IT" levodopa [From Sinemet] AdvReac Intermediate Unknown/Family Verified 04/02/25 00:37 says only Sinemet, haven't tried Sinemet CR. Home Meds Home Medications Medication Instructions Recorded Confirmed aspirin 81 mg tablet,delayed 81 mg PO DAILY 11/27/24 04/17/25 release carbidopa ER 25 mg-levodopa 100 mg 1 tab PO UD 11/27/24 04/17/25 tablet,extended release citalopram 20 mg tablet 20 mg PO DAILY 11/27/24 04/17/25 clopidogrel 75 mg tablet 75 mg PO DAILY 11/27/24 04/17/25 evolocumab 140 mg/mL subcutaneous 140 mg subcut UD 11/27/24 04/17/25 pen injector (Neha Carter) ezetimibe 10 mg tablet 10 mg PO DAILY 11/27/24 04/17/25 folic acid 400 mcg tablet 0.4 mg PO DAILY 11/27/24 04/17/25 furosemide 20 mg tablet 20 mg PO DAILY PRN Edema 11/27/24 04/17/25 metoprolol succinate 25 mg 25 mg PO HS 11/27/24 04/17/25 tablet,extended release 24 hr multivitamin 1 tab PO DAILY 11/27/24 04/17/25 nitroglycerin 0.4 mg sublingual 0.4 mg sublingual UD PRN Chest Pain 11/27/24 04/17/25 tablet Lactobacillus acidophilus 10 10,000 mmu cells PO DAILY 04/02/25 04/17/25 billion cell capsule (Probiotic) calcium carbonate 500 mg PO DAILY 04/02/25 04/17/25 cholecalciferol (vitamin D3) 25 25 mcg PO DAILY 04/02/25 04/17/25 mcg (1,000 unit) capsule (Vitamin D3) coQ10 (ubiquinol) 200 mg capsule 400 mg PO DAILY 04/02/25 04/17/25 desonide 0.05 % lotion 1 applic topical DAILY 04/02/25 04/17/25 diclofenac sodium 1 % topical gel 4 g topical QID PRN Pain 04/02/25 04/17/25 docusate sodium 100 mg capsule 100 mg PO DAILY PRN Constipation 04/02/25 04/17/25 fluocinonide 0.05 % topical 1 applic topical 4XWK PRN 04/02/25 04/17/25 solution REDNESS/FLAKING ketoconazole 2 % topical cream 1 applic topical .[id number] 04/02/25 04/17/25 melatonin 3 mg tablet 6 mg PO HS 04/02/25 04/17/25 sennosides 8.6 mg-docusate sodium 1 tab-cap PO BID 04/02/25 04/17/25 50 mg tablet (Senokot-S) triamcinolone acetonide 0.1 % 1 applic topical BID PRN SKIN 04/02/25 04/02/25 topical cream IRRITATIONS Previous Rx's Medication Instructions Recorded amlodipine 5 mg tablet 5 mg PO QAM #30 tabs 11/28/24 isosorbide mononitrate 60 mg 90 mg (1.5 x 60 mg) PO DAILY #60 11/28/24 tablet,extended release 24 hr tabs pantoprazole 40 mg tablet,delayed 40 mg PO QAM #30 tabs 11/28/24 release Results & Data (ED) Vital Signs Vital Signs - 24 hr 04/17/25 05:15 04/17/25 05:15 04/17/25 05:28 Temperature 36.6 C Temperature Source Oral Pulse Rate 60 56 L 54 L Pulse Rate [Left Finger] Pulse Rhythm Irregular Pulse Strength Normal Respiratory Rate 12 16 Respiratory Effort / Characteristics Non-Labored Spontaneous Respiratory Depth Normal Respiratory Pattern Regular Blood Pressure 133/74 133/74 Blood Pressure [Right Arm] Blood Pressure Mean 93 93 Blood Pressure Mean [Right Arm] Pulse Oximetry 96 97 Oxygen Delivery Method Room Air Sepsis Recent Fever Within 48 Hours No Sepsis New/Unexplained Change in Mental Status No Sepsis Action Taken by Nursing No Action Required 04/17/25 05:30 04/17/25 06:00 04/17/25 07:04 Temperature Temperature Source Pulse Rate 54 L 51 L Pulse Rate [Left Finger] 53 L Pulse Rhythm Pulse Strength Respiratory Rate 23 19 20 Respiratory Effort / Characteristics Respiratory Depth Normal Respiratory Pattern Blood Pressure 134/78 149/76 H Blood Pressure [Right Arm] 143/74 H Blood Pressure Mean 96 100 Blood Pressure Mean [Right Arm] 97 Pulse Oximetry 95 94 92 Oxygen Delivery Method Room Air Sepsis Recent Fever Within 48 Hours Sepsis New/Unexplained Change in Mental Status Sepsis Action Taken by Nursing 04/17/25 09:00 04/17/25 10:19 Temperature Temperature Source Pulse Rate 52 L Pulse Rate [Left Finger] 51 L Pulse Rhythm Pulse Strength Respiratory Rate 19 Respiratory Effort / Characteristics Respiratory Depth Normal Respiratory Pattern Blood Pressure Blood Pressure [Right Arm] 146/71 H Blood Pressure Mean Blood Pressure Mean [Right Arm] 96 Pulse Oximetry 95 Oxygen Delivery Method Room Air Sepsis Recent Fever Within 48 Hours Sepsis New/Unexplained Change in Mental Status Sepsis Action Taken by Nursing Laboratory Data 04/17/25 12:13 04/17/25 05:18 Lab Results 04/17/25 04/17/25 Range/Units 05:18 05:26 WBC 8.80 (4.8-10.8) K/ul RBC 5.01 (4.70-6.10) M/uL Hgb 14.6 (14.0-18.0) g/dL Hct 42.9 (42.0-52.0) % MCV 85.6 (80.0-100.0) fL MCH 29.1 (25.0-34.0) pg MCHC 34.0 (32.0-36.0) g/dL RDW Std Deviation 43.3 (36.4-46.3) fL RDW Coeff of Lanre 13.9 (11.5-14.5) % Plt Count 258 (130-400) K/uL MPV 10.2 (9.4-12.4) fL Immature Gran % (Auto) 0.2 % Neut % (Auto) 72.6 % Lymph % (Auto) 15.1 % Webster % (Auto) 9.4 % Eos % (Auto) 1.8 % Baso % (Auto) 0.9 % Neut # (Auto) 6.38 (1.40-6.50) K/uL Lymph # (Auto) 1.33 (1.20-3.40) K/uL Webster # (Auto) 0.83 H (0.11-0.59) K/uL Eos # (Auto) 0.16 (0.00-0.50) K/uL Baso # (Auto) 0.08 (0.00-0.20) K/uL Immature Gran # (Auto) 0.02 (0.01-0.20) K/uL PT 10.5 (9.0-12.0) Seconds INR 1.0 (0.9-1.1) Sodium 136 (136-145) mmol/L Potassium 3.9 (3.5-5.1) mmol/L Chloride 103 (98-107) mmol/L Carbon Dioxide 25 (21-32) mmol/L Anion Gap 8 (3-11) BUN 29 H (6-23) mg/dl Creatinine 1.09 (0.6-1.4) mg/dl Est Cr Clr Drug Dosing 55.8 ml/min eGFR 68.61 BUN/Creatinine Ratio 26.6 H (10-20) Glucose 115 H (70-99(Fasting)) mg/dl Calcium 9.6 (8.6-10.3) mg/dl Magnesium 2.4 (1.7-2.4) mg/dl Total Bilirubin 0.6 (0.2-1.0) mg/dl AST 14 (13-39) U/L ALT 4 L (7-52) U/L Alkaline Phosphatase 78 (34-104) U/L Total Protein 7.2 (6.0-8.3) gm/dl Albumin 4.3 (3.4-5.0) gm/dl Globulin 2.9 (2.5-4.0) gm/dl Albumin/Globulin Ratio 1.5 (0.9-2) Lipase 9 L (11-82) U/L Blood Type O Positive Antibody Screen NEGATIVE Administered Medications Sodium Chloride (Nss) 1,000 mls @ 60 mls/hr IV .[id number] PHUONG Stop: 04/20/25 11:59 Last Admin: 04/17/25 14:00 Dose: 60 mls/hr Documented By: CEF Piperacillin Sod/Tazobactam Sod (Zosyn) 4.5 gm in 100 mls @ 25 mls/hr IV Q8H [facility]; Protocol Stop: 04/27/25 13:59 Last Admin: 04/17/25 14:19 Dose: 25 mls/hr Documented By: CEF Pantoprazole Sodium 40 mg/ (Dextrose) 100 mls @ 20 mls/hr IV Q5H PHUONG Stop: 05/17/25 13:44 Last Admin: 04/17/25 14:19 Dose: 8 mg/hr, 20 mls/hr Documented By: CEF Discontinued Medications Sodium Chloride (Nss) 500 mls @ 999 mls/hr IV .Q31M STA Stop: 04/17/25 05:34 Last Infusion: 04/17/25 06:30 Dose: Infused Documented By: Admin: 04/17/25 05:37 Dose: 999 mls/hr Documented By: EJW Piperacillin Sod/Tazobactam Sod (Zosyn) 4.5 gm in 100 mls @ 200 mls/hr IV NOW ONE; Protocol Stop: 04/17/25 09:28 Last Infusion: 04/17/25 11:14 Dose: Infused Documented By: wap Admin: 04/17/25 09:34 Dose: 200 mls/hr Documented By: cameron Pantoprazole Sodium 80 mg/ (Dextrose) 120 mls @ 480 mls/hr IV NOW ONE Stop: 04/17/25 13:44 Last Infusion: 04/17/25 14:19 Dose: Infused Documented By: Admin: 04/17/25 14:02 Dose: 480 mls/hr Documented By: CEF Ioversol (Optiray 320 100ml) 94 ml IV ONCE ONE Stop: 04/17/25 07:28 Last Admin: 04/17/25 07:27 Dose: 94 ml Documented By: TIFFANIE Imaging Data Radiologist's Impression: Abdomen/Pelvis CT 04/17/25 07:19 EXAM: CT abd pelvis IV con only CLINICAL HISTORY: diverticulitis, abd pain + rectal bleeding TECHNIQUE: CT of the abdomen and pelvis was performed with intravenous contrast, with the following protocol: axial images, and reconstructed coronal and sagittal images. Non-contrast images were initially acquired, followed by contrast-enhanced images acquired in arterial and venous phases. Intravenous contrast [name and volume] was administered using automated injection techniques. One of the following dose reduction techniques was utilized for this exam: Automated exposure control, adjustment of the mA and/or kV according to patient size, and use of iterative reconstruction. COMPARISON: Comparison is made with 07.16.24 FINDINGS: There is diffuse circumferential mural thickening ,submucosal edema and stranding of the surrounding fat planes noted involving rectum sigmoid colon ,descending colon and transverse colon suggesting acute colitis. Multiple diverticulosis in descending colon with acute diverticulitis. Liver:Multiple well-defined thin-walled cystic lesions were noted with no significant post-contrast enhancement, largest measures 4x3 cm. Gallbladder and Biliary System: The gallbladder is normal in size and shape. No wall thickening, pericholecystic fluid, or gallstones were identified. Common bile duct normal without dilatation. Pancreas: Pancreatic head, body, and tail are visualized and appear normal in size and density. No pancreatic masses, cysts, or calcifications noted. Main pancreatic duct is [normal size/diameter] without dilatation. Spleen: Normal in size, shape, and density. No splenic lesions or masses identified. Kidneys and Adrenal Glands: Right renal few cysts, largest upper pole cortical cyst noted measuring about 7.5x6.3 cm. Both kidneys are normal in size, shape, and position. Cortical thickness is within normal limits. No renal calculi or hydronephrosis. Adrenal glands :left adrenal is enlarged measuring 23x 19 mm . right is normal Appendix: The appendix is normal in size without molly appendiceal fat stranding, and without an appendicolith. No evidence of appendiceal abscess or perforation. Abdominal Aorta and Vessels: The abdominal aorta and major branches are patent with significant atherosclerosis. Peritoneal and Retroperitoneal Structures: No free fluid or abnormal fluid collections were identified within the abdomen or pelvis. No lymphadenopathy was noted. The prostate is mildly enlarged measuring 4.8x3.8 cm . The seminal vessicles are normal . Urinary Bladder partially filled appears normal IMPRESSION: 1. Diffuse rectosegmoid , descending and transverse colon mural thickening suggestive of acute colitis as compare to previous ct the disease is progressed. 2. Multiple diverticulosis in descending colon with acute diverticulitis. 3. Multiple well-defined thin-walled hepatic simple cysts, stable. 4. Right renal few cysts largest exophytic cyst of Bosniak type I, stable. 5. Mild prostatomegaly noted, stable. 6. Diffuse aortoiliac atherosclerotic changes, stable. 7. Left adrenal hypertrophy, stable. Electronically signed by Devante Vyas 04-17-2025 08:47 AM Discharge Plan Visit Data Chief Complaint: Rectal Bleed Stated Complaint: Rectal Bleed ED Provider: Eneida Dominguez Discharge Problem: Colitis, Diverticulitis Patient Disposition: Admitted As Inpatient Condition: Fair Discharge Instructions Interventions: ED Discharge Assessment Last Done: 04/17/25 12:59
[2025-04-17] MEDS: OPTIRAY 320 100ml IV ONE (07:27)
--- NOTE | 2025-04-17 08:48 | CT Scan Report ---
EXAM: CT abd pelvis IV con only CLINICAL HISTORY: diverticulitis, abd pain + rectal bleeding TECHNIQUE: CT of the abdomen and pelvis was performed with intravenous contrast, with the following protocol: axial images, and reconstructed coronal and sagittal images. Non-contrast images were initially acquired, followed by contrast-enhanced images acquired in arterial and venous phases. Intravenous contrast [name and volume] was administered using automated injection techniques. One of the following dose reduction techniques was utilized for this exam: Automated exposure control, adjustment of the mA and/or kV according to patient size, and use of iterative reconstruction. COMPARISON: Comparison is made with 3 FINDINGS: There is diffuse circumferential mural thickening ,submucosal edema and stranding of the surrounding fat planes noted involving rectum sigmoid colon ,descending colon and transverse colon suggesting acute colitis. Multiple diverticulosis in descending colon with acute diverticulitis. Liver:Multiple well-defined thin-walled cystic lesions were noted with no significant post-contrast enhancement, largest measures 4x3 cm. Gallbladder and Biliary System: The gallbladder is normal in size and shape. No wall thickening, pericholecystic fluid, or gallstones were identified. Common bile duct normal without dilatation. Pancreas: Pancreatic head, body, and tail are visualized and appear normal in size and density. No pancreatic masses, cysts, or calcifications noted. Main pancreatic duct is [normal size/diameter] without dilatation. Spleen: Normal in size, shape, and density. No splenic lesions or masses identified. Kidneys and Adrenal Glands: Right renal few cysts, largest upper pole cortical cyst noted measuring about 7.5x6.3 cm. Both kidneys are normal in size, shape, and position. Cortical thickness is within normal limits. No renal calculi or hydronephrosis. Adrenal glands :left adrenal is enlarged measuring 23x 19 mm . right is normal Appendix: The appendix is normal in size without molly appendiceal fat stranding, and without an appendicolith. No evidence of appendiceal abscess or perforation. Abdominal Aorta and Vessels: The abdominal aorta and major branches are patent with significant atherosclerosis. Peritoneal and Retroperitoneal Structures: No free fluid or abnormal fluid collections were identified within the abdomen or pelvis. No lymphadenopathy was noted. The prostate is mildly enlarged measuring 4.8x3.8 cm . The seminal vessicles are normal . Urinary Bladder partially filled appears normal IMPRESSION: 1. Diffuse rectosegmoid , descending and transverse colon mural thickening suggestive of acute colitis as compare to previous ct the disease is progressed. 2. Multiple diverticulosis in descending colon with acute diverticulitis. 3. Multiple well-defined thin-walled hepatic simple cysts, stable. 4. Right renal few cysts largest exophytic cyst of Bosniak type I, stable. 5. Mild prostatomegaly noted, stable. 6. Diffuse aortoiliac atherosclerotic changes, stable. 7. Left adrenal hypertrophy, stable. Electronically signed by Devante Vyas 04-17-2025 08:47 AM
--- NOTE | 2025-04-17 08:55 | Electrocardiogram Report ---
Test Reason : Blood Pressure : */* mmHG Vent. Rate : 54 BPM Atrial Rate : 54 BPM P-R Int : 174 ms QRS Dur : 118 ms QT Int : 468 ms P-R-T Axes : 76 -49 45 degrees QTcB Int : 443 ms Atrial flutter with variable A-V block Left anterior fascicular block Left ventricular hypertrophy with QRS widening ( R in aVL , Faisal product ) Abnormal ECG When compared with ECG of 01-Apr-2025 23:56, HR has decreased Confirmed by Jn Miller ([id number]) on 04/17/2025 8:55:22 AM Referred By: REFERRED SELF Confirmed By: Jn Miller
--- NOTE | 2025-04-17 09:18 | History & Physical Report ---
Date of Service April 17, 2025 Assessment & Plan (1) Colitis, acute: (2) Acute diverticulitis: (3) Paroxysmal atrial flutter: (4) CAD (coronary artery disease): (5) Hyperlipidemia: (6) Hypertension, uncontrolled: (7) Parkinson's disease: Plan: Patient is a 80 year old M with a past medical history of dyslipidemia, CAD, Paroxysmal Atrial flutter on dual antiplatelet treatment, HTN, colon polyps, prediabetes, Parkinson's presenting with rectal bleeding, abdominal pain, and belching x 1 day. Symptoms began yesterday afternoon with mild rectal bleeding, reportedly bright red blood that continued. Had a decreased appetite last evening, but able to eat without vomiting. No urinary symptoms or bleeding. On dual anti-platelet for many years with no history of stents. Presumably on dual antiplatelet for paroxysmal atrial flutter. Son at the bedside and reports patient was taking high doses of ibuprofen roughly 2 weeks ago for knee pain. Also with history of chronic, idiopathic constipation that was originally managed with Linzess, but has been stopped. He now takes Mag Citrate daily. Rectal bleeding 2/2 acute colitis with diverticulitis * Admit to [facility] for additional management * Presenting w/ rectal bleeding and abdominal pain x 1 day * Hx of chronic idiopathic constipation previously managed with Linzess w/o improvement, now takes magnesium citrate daily; * Previous colonoscopy from 2019 showing 4 mm polyp to descending colon that was removed, as well as multiple small and large-mouthed diverticula to sigmoid. * Hgb stable at 14; repeat lab unchanged-> trend H&H Q6H * + belching and abdominal distention-> will start PPI * GI consulted today with following recs: * Colonoscopy or flex sig outpt in 6-8 weeks. * Clear liquid diet today * supportive care. * Empiric Zosyn Q8H * IV hydration w/ NSS at 60 m/hr and advance later today * CDiff and Stool PCR pending Paroxysmal A- Flutter * EKG showing A Flutter, vent rate 54, QTc 443 * On dual anti-platelet and metoprolol-> hold ASA, plavix, and Metoprolol in setting of GI bleed * Bradycardic here to mid 50's * Tele monitoring * Mag 2.4-> trend and replace as needed CAD Hyperlipidemia * No stents; holding aspirin * CTAP showing atherosclerotic plaque in the aorta * On repatha, zetia-> continue Zetia while inpatient Hypertension * Per outside EMR- has low BP at PCP office 88-92/44-56 mmHg; reportedly home BP's 120-140/70-80 mmHg. * Holding home antihypertensives in setting of GI bleed Parkinson's * Follows with [facility] * Continue sinemet per home routine * Fall precautions- ambulates w/ cane DVT Ppx: SCDs Code status: Full PCP: Dr. Robledo Dispo:Admit Patient seen in collaboration with Dr. Johnson. Please see addendum.I spent a total of 60 minutes coordinating, documenting and providing care for this patient excluding time spent in the performance of separately billed services or time spent by another provider/QHP. History of Present Illness Primary Care Provider: Kaz Robledo MD Patient is a 80 year old M with a past medical history of dyslipidemia, CAD, Paroxysmal Atrial flutter on dual antiplatelet treatment, HTN, colon polyps, prediabetes, Parkinson's presenting with rectal bleeding, abdominal pain, and belching x 1 day. Symptoms began yesterday afternoon with mild rectal bleeding, reportedly bright red blood that continued. Had a decreased appetite last evening, but able to eat without vomiting. No urinary symptoms or bleeding. On dual anti-platelet for many years with no history of stents. Presumably on dual antiplatelet for paroxysmal atrial flutter. Son at the bedside and reports patient was taking high doses of ibuprofen roughly 2 weeks ago for knee pain. Also with history of chronic, idiopathic constipation that was originally managed with Linzess, but has been stopped. He now takes Mag Citrate daily. Denies fever, chills, weight loss, headache, cognitive changes, vision/hearing changes, chest pain, SOB, swelling, difficulty breathing, urinary concerns, N/V, ambulation difficulty, skin rashes, lesions, bruising. Discussed with ED provider CT imaging results, treatment rendered and reasons for admission re: management lower GI bleed. Per ED provider, rectal exam + heme stool. In the emergency department, patient was hemodynamically stable with bradycardia to mid-50's. Lab workup unremarkable for leukocytosis. EKG showing Atrial flutter with A-V block, vent rate 54 bpm, QTc 443. CT abdomen/pelvis showed diffuse rectosegmoid , descending and transverse colon mural thickening suggestive of acute colitis and acute diverticulitis. As per outpatient record, patient's last colonoscopy was in 2019 showing 4 mm polyp to descending colon that was removed, as well as multiple small and large- mouthed diverticula were found in the sigmoid colon. He did not followup with repeat colonoscopy that was recommended at 1 year. Patient was in [facility] ED 2 weeks ago for chest pain and weakness, no bleeding at that time. He was prescribed Flomax at PCP 2 days prior to ED visit for possible urinary retention that seemed to be acute from constipation; however, he became very weak on this mediation, developed chest pain and has since stopped taking this. Now without urinary concerns or symptoms. Additionally he has a history of Prediabetes with last A1C 5.8% from October 2024 assessment. Random glucose 115 today. Per Neuro note from 02/02/2025, patient with a history of Parksinon's dx that is well managed with Carbidopa/levodopa. He has been experiencing anxiety symptoms and referred for Psychiatry consultation History obtained primarily from the patient and via hospitalization record. The patient's son was at the bedside and assisted with history of present and past medical history, home medications, and pertinent information to current health condition. Patient lives with this son, who is his primary animal care assistant. External chart review obtained from [employer]. Allergies Allergy/AdvReac Type Severity Reaction Status Date / Time bee venom protein (honey bee) Allergy Severe SWELLING, Verified 04/02/25 00:37 INTENSE ITCHING, HIVES atorvastatin AdvReac Intermediate MUSCLE PAIN Verified 04/02/25 00:37 carbidopa [From Sinemet] AdvReac Intermediate Unknown/Family Verified 04/02/25 00:37 says only Sinemet, haven't tried Sinemet CR. gabapentin AdvReac Intermediate "CAN'T Verified 04/02/25 00:37 HANDLE IT" levodopa [From Sinemet] AdvReac Intermediate Unknown/Family Verified 04/02/25 00:37 says only Sinemet, haven't tried Sinemet CR. Home Medications Medication Instructions Recorded Confirmed Type aspirin 81 mg tablet,delayed 81 mg PO DAILY 11/27/24 04/17/25 History release carbidopa ER 25 mg-levodopa 100 mg 1 tab PO UD 11/27/24 04/17/25 History tablet,extended release citalopram 20 mg tablet 20 mg PO DAILY 11/27/24 04/17/25 History clopidogrel 75 mg tablet 75 mg PO DAILY 11/27/24 04/17/25 History evolocumab 140 mg/mL subcutaneous 140 mg subcut UD 11/27/24 04/17/25 History pen injector (Neha Carter) ezetimibe 10 mg tablet 10 mg PO DAILY 11/27/24 04/17/25 History folic acid 400 mcg tablet 0.4 mg PO DAILY 11/27/24 04/17/25 History furosemide 20 mg tablet 20 mg PO DAILY PRN Edema 11/27/24 04/17/25 History metoprolol succinate 25 mg 25 mg PO HS 11/27/24 04/17/25 History tablet,extended release 24 hr multivitamin 1 tab PO DAILY 11/27/24 04/17/25 History nitroglycerin 0.4 mg sublingual 0.4 mg sublingual UD PRN Chest Pain 11/27/24 04/17/25 History tablet amlodipine 5 mg tablet 5 mg PO QAM #30 tabs 11/28/24 04/17/25 Rx isosorbide mononitrate 60 mg 90 mg (1.5 x 60 mg) PO DAILY #60 11/28/24 04/17/25 Rx tablet,extended release 24 hr tabs pantoprazole 40 mg tablet,delayed 40 mg PO QAM #30 tabs 11/28/24 04/17/25 Rx release Lactobacillus acidophilus 10 10,000 mmu cells PO DAILY 04/02/25 04/17/25 History billion cell capsule (Probiotic) calcium carbonate 500 mg PO DAILY 04/02/25 04/17/25 History cholecalciferol (vitamin D3) 25 25 mcg PO DAILY 04/02/25 04/17/25 History mcg (1,000 unit) capsule (Vitamin D3) coQ10 (ubiquinol) 200 mg capsule 400 mg PO DAILY 04/02/25 04/17/25 History desonide 0.05 % lotion 1 applic topical DAILY 04/02/25 04/17/25 History diclofenac sodium 1 % topical gel 4 g topical QID PRN Pain 04/02/25 04/17/25 History docusate sodium 100 mg capsule 100 mg PO DAILY PRN Constipation 04/02/25 04/17/25 History fluocinonide 0.05 % topical 1 applic topical 4XWK PRN 04/02/25 04/17/25 History solution REDNESS/FLAKING ketoconazole 2 % topical cream 1 applic topical .[id number] 04/02/25 04/17/25 History melatonin 3 mg tablet 6 mg PO HS 04/02/25 04/17/25 History sennosides 8.6 mg-docusate sodium 1 tab-cap PO BID 04/02/25 04/17/25 History 50 mg tablet (Senokot-S) triamcinolone acetonide 0.1 % 1 applic topical BID PRN SKIN 04/02/25 04/02/25 History topical cream IRRITATIONS Past Med/Surg History Problem List (Updated 04/17/25 @ 14:36 by Eneida Dominguez MD) Diverticulitis (Acute) Colitis (Acute) Acute diverticulitis Colitis, acute Hypertension, uncontrolled Angina concurrent with and due to arteriosclerosis of coronary artery CAD (coronary artery disease) (Acute) Chest pain (Acute) Paroxysmal atrial flutter (Acute) ASCVD (arteriosclerotic cardiovascular disease) Syncope Orthostatic hypotension SOB (shortness of breath) on exertion Parkinson's disease (Acute) Elevated troponin I level (Acute) Chest pain (Acute) Anxiety Depression Hyperlipidemia CAD (coronary artery disease) Peripheral arterial disease Hypertension (Chronic) Medical History NSTEMI (non-ST elevated myocardial infarction) Mixed hyperlipidemia Multiple vessel coronary artery disease Atrial flutter Inguinal hernia Surgical History S/P tonsillectomy Family History Other Asthma Denies family history of Hypertension Social History Smoking Status: Never smoker Tobacco Type: Cigarettes Second Hand Exposure: No; Do You Dip or Chew Tobacco: No; Hx Alcohol Use: No Hx Substance Use: No Preferred Language: Argentine Communication Ability: Effective Hairspring Staker Required: No Beliefs That Will Affect Care: None Current Living Situation: Family Current Living Situation Comment: lives with son Cam Feels Safe at Home: Yes Assistive Devices: Denture - Upper, Denture - Lower, Glasses and Walker Review of Systems Review of Systems: All systems reviewed & are unremarkable except as noted in HPI & below Physical Exam Physical Exam: VITALS: Reviewed. WEIGHT/BMI reviewed. GEN: Healthy appearing, well-developed, NAD. PSYCH: Good Judgment. AOx3. Normal memory, mood, and affect. HEENT -Head: NC/AT; -Eyes: PERRL, EOMI. No discharge or redn ess; -Ears: External ears are normal. -Nose: Normal nares. -Mouth and throat: MMM. Normal gums, muc maura, palate,. Good dentition. NECK: Supple, with no masses. CV: RRR, no m/r/g. LUNGS: CTAB, no w/r/c. ABD: Soft, mildly distended, tender to lowr abdomen, active BS, no masses or organomegaly. : N/A SKIN: Warm, well perfused. No skin rashes or abnormal lesions. MSK: No deformities, Normal gait. EXT: No clubbing, cyanosis, or edema. NEURO: Tremor noted. CN II-XII grossly intact. No focal deficits. Results & Data Results & Data Vital Signs (Past 12 Hours) Vital Signs Temp Pulse Pulse Resp BP BP Pulse Ox 04/17/25 07:04 53 L 20 143/74 H 92 04/17/25 06:00 51 L 19 149/76 H 94 04/17/25 05:30 54 L 23 134/78 95 04/17/25 05:28 54 L 04/17/25 05:15 56 L 16 133/74 97 04/17/25 05:15 36.6 C 60 12 133/74 96 O2 Del Method 04/17/25 07:04 Room Air 04/17/25 06:00 04/17/25 05:30 04/17/25 05:28 04/17/25 05:15 04/17/25 05:15 Room Air Laboratory Results Short CBC 04/17/25 Range/Units 05:18 WBC 8.80 (4.8-10.8) K/ul Hgb 14.6 (14.0-18.0) g/dL Hct 42.9 (42.0-52.0) % Plt Count 258 (130-400) K/uL BMP 04/17/25 05:18 Sodium 136 Potassium 3.9 Chloride 103 Carbon Dioxide 25 BUN 29 H Creatinine 1.09 Glucose 115 H Calcium 9.6 Liver Function 04/17/25 Range/Units 05:18 Total Bilirubin 0.6 (0.2-1.0) mg/dl AST 14 (13-39) U/L ALT 4 L (7-52) U/L Alkaline Phosphatase 78 (34-104) U/L Albumin 4.3 (3.4-5.0) gm/dl Diagnostic Findings Abdomen/Pelvis CT 04/17/25 07:19 EXAM: CT abd pelvis IV con only CLINICAL HISTORY: diverticulitis, abd pain + rectal bleeding TECHNIQUE: CT of the abdomen and pelvis was performed with intravenous contrast, with the following protocol: axial images, and reconstructed coronal and sagittal images. Non-contrast images were initially acquired, followed by contrast-enhanced images acquired in arterial and venous phases. Intravenous contrast [name and volume] was administered using automated injection techniques. One of the following dose reduction techniques was utilized for this exam: Automated exposure control, adjustment of the mA and/or kV according to patient size, and use of iterative reconstruction. COMPARISON: Comparison is made with 07.16.24 FINDINGS: There is diffuse circumferential mural thickening ,submucosal edema and stranding of the surrounding fat planes noted involving rectum sigmoid colon ,descending colon and transverse colon suggesting acute colitis. Multiple diverticulosis in descending colon with acute diverticulitis. Liver:Multiple well-defined thin-walled cystic lesions were noted with no significant post-contrast enhancement, largest measures 4x3 cm. Gallbladder and Biliary System: The gallbladder is normal in size and shape. No wall thickening, pericholecystic fluid, or gallstones were identified. Common bile duct normal without dilatation. Pancreas: Pancreatic head, body, and tail are visualized and appear normal in size and density. No pancreatic masses, cysts, or calcifications noted. Main pancreatic duct is [normal size/diameter] without dilatation. Spleen: Normal in size, shape, and density. No splenic lesions or masses identified. Kidneys and Adrenal Glands: Right renal few cysts, largest upper pole cortical cyst noted measuring about 7.5x6.3 cm. Both kidneys are normal in size, shape, and position. Cortical thickness is within normal limits. No renal calculi or hydronephrosis. Adrenal glands :left adrenal is enlarged measuring 23x 19 mm . right is normal Appendix: The appendix is normal in size without molly appendiceal fat stranding, and without an appendicolith. No evidence of appendiceal abscess or perforation. Abdominal Aorta and Vessels: The abdominal aorta and major branches are patent with significant atherosclerosis. Peritoneal and Retroperitoneal Structures: No free fluid or abnormal fluid collections were identified within the abdomen or pelvis. No lymphadenopathy was noted. The prostate is mildly enlarged measuring 4.8x3.8 cm . The seminal vessicles are normal . Urinary Bladder partially filled appears normal IMPRESSION: 1. Diffuse rectosegmoid , descending and transverse colon mural thickening suggestive of acute colitis as compare to previous ct the disease is progressed. 2. Multiple diverticulosis in descending colon with acute diverticulitis. 3. Multiple well-defined thin-walled hepatic simple cysts, stable. 4. Right renal few cysts largest exophytic cyst of Bosniak type I, stable. 5. Mild prostatomegaly noted, stable. 6. Diffuse aortoiliac atherosclerotic changes, stable. 7. Left adrenal hypertrophy, stable. Electronically signed by Devante Vyas 04-17-2025 08:47 AM Supervising Physician Co-Signing Physician Notes Attending Addendum: Case reviewed with the advanced practitioner. I have personally performed a history and physical examination on the patient. I have reviewed the advanced practitioner's documentation on the date of service referenced in note, and I agree with, and take responsibility for the plan of care. please refer to her notes for full details patient seen and examined, records reviewed by myself as well on exam, patient seen resting in bed, comfortable States he has some mild lower abdominal discomfort but otherwise feels fine No nausea No chest pain, shortness of breath, dizziness no other symptoms VS noted and reviewed oriented x3 , not in distress, speaks in sentences with no effort nor accessory muscle use normal rate, regular rhythm, no murmurs clear breath sounds bilaterally non distended, soft, mild bilateral lower quadrant tenderness no bipedal edema, erythema, warmth no neuro deficits all labs, imaging noted and reviewed ASSESSMENT AND PLAN> Hematochezia, likely secondary to acute diverticulitis versus colitis Hemodynamically stable hemoglobin currently at baseline, follow serial hemoglobin levels check stool PCR and C. difficile Hold aspirin and Plavix Gentle IV fluids GI consulted Hold BP meds to avoid hypotension Other chronic medical problems: CAD Hypertension Paroxysmal a flutter Parkinson disease other diagnoses and plan of care as per advanced practitioner's notes I spent a total of 35 minutes coordinating, documenting, and providing care for this patient, excluding time spent in the performance of separately billed services or time spent by another provider/QHP. Ketan Johnson MD (4) CAD (coronary artery disease) Associated angina: unspecified whether angina present Coronary Disease- Associated Artery/Lesion type: unspecified vessel or lesion type [place] vs. transplanted heart: [place] heart Qualified Code(s): I25.10 - Atherosclerotic heart disease of [place] coronary artery without angina pectoris (7) Parkinson's disease Dyskinesia presence: unspecified whether dyskinesia Fluctuating manifestati ons: unspecified whether manifestations fluctuate Qualified Code(s): G20.A1 - Parkinson's disease without dyskinesia, without mention of fluctuations
[2025-04-17] MEDS: PIPERACILLIN/TAZOBACTAM 4.5 GM/100 ML BAG IV ONE (09:34)
[2025-04-17] MEDS ORDERED: DICLOFENAC SOD 1% GEL 100 GM TUBE EXT PRN (10:40)
[2025-04-17 10:54] LABS: Magnesium 2.4 mg/dl (1.7-2.4)
[2025-04-17 12:23] LABS: Appearance Urine Clear (Clear); Bacteria Urine Automated 1+ (None Seen); Cast Urine Automated 0-2 /lpf (0-2); Glucose Urine UA Negative (Negative); RBC Urine Automated 0-2 /hpf (0-2); WBC Urine Automated 0-5 /hpf (0-5)
[2025-04-17 12:32] LABS: Hematocrit (blood only) 41.4 % (42.0-52.0); Hemoglobin 14.4 g/dL (14.0-18.0)
[2025-04-17] MEDS ORDERED: ACETAMINOPHEN 325 MG TAB PO PRN (12:59)
[2025-04-17] MEDS ORDERED: MAGNESIUM HYDROXIDE SUSP 30 ML UDC PO PRN (12:59)
[2025-04-17] MEDS ORDERED: ALUMINUM/MAGNESIUM SUSP 30 ML UDC PO PRN (12:59)
[2025-04-17] MEDS ORDERED: ONDANSETRON INJ 2 MG/ML 2 ML VIAL IV PRN (12:59)
[2025-04-17] MEDS ORDERED: MELATONIN 3 MG TAB PO PRN (12:59)
[2025-04-17] MEDS: SODIUM CHLORIDE 0.9% 1,000 ML IV SCH (14:00)
[2025-04-17] MEDS: PANTOprazole 40 MG in DEXTROSE 5% MINI-B 100 ML IV SCH (14:19)
[2025-04-17] MEDS: PIPERACILLIN/TAZOBACTAM 4.5 GM/100 ML BAG IV SCH (14:19)
--- NOTE | 2025-04-17 14:43 | Gastrointestinal Consultation ---
Date of Consultation April 17, 2025 Assessment & Plan (1) Colitis, acute: 80 year old M with a past medical history of dyslipidemia, CAD, Paroxysmal Atrial flutter on dual antiplatelet treatment, HTN, colon polyps, prediabetes, Parkinson's on DAPT presenting with rectal bleeding, abdominal pain, and b elching x 1 day. Symptoms began yesterday afternoon with mild rectal bleeding, reportedly bright red blood that continued. Had a decreased appetite last evening, but able to eat without vomiting. CT with diffuse colitis, rectosigmoid, descending and transverse distal. Findings are suggestive of infectious vs ischemic colitis. Check stool cx, cdiff. Antibiotics empirically. Based on progression, should get colonoscopy or flex sig outpt in 6-8 weeks. Clear liquid diet today. supportive care. History of Present Illness Reason for Consultation: abdominal pain. bleeding. Requesting Physician: Adria Lott Attending Physician: Ketan Johnson MD History of Present Illness 80 year old M with a past medical history of dyslipidemia, CAD, Paroxysmal Atrial flutter on dual antiplatelet treatment, HTN, colon polyps, prediabetes, Parkinson's on DAPT presenting with rectal bleeding, abdominal pain, and belching x 1 day. Symptoms began yesterday afternoon with mild rectal bleeding, reportedly bright red blood that continued. Had a decreased appetite last evening, but able to eat without vomiting. Presumably on dual antiplatelet for paroxysmal atrial flutter. Son at the bedside and reports patient was taking high doses of ibuprofen roughly 2 weeks ago for knee pain. Also with history of chronic, idiopathic constipation that was originally managed with Linzess, but has been stopped. He now takes Mag Citrate daily. CT scan: . Diffuse rectosigmoid , descending and transverse colon mural thickening suggestive of acute colitis as compare to previous ct the disease is progressed. He does not remember when last colonoscopy was and we do not have any here. Allergies Allergy/AdvReac Type Severity Reaction Status Date / Time bee venom protein (honey bee) Allergy Severe SWELLING, Verified 04/02/25 00:37 INTENSE ITCHING, HIVES atorvastatin AdvReac Intermediate MUSCLE PAIN Verified 04/02/25 00:37 carbidopa [From Sinemet] AdvReac Intermediate Unknown/Family Verified 04/02/25 00:37 says only Sinemet, haven't tried Sinemet CR. gabapentin AdvReac Intermediate "CAN'T Verified 04/02/25 00:37 HANDLE IT" levodopa [From Sinemet] AdvReac Intermediate Unknown/Family Verified 04/02/25 00:37 says only Sinemet, haven't tried Sinemet CR. Home Medications Medication Instructions Recorded Confirmed Type aspirin 81 mg tablet,delayed 81 mg PO DAILY 11/27/24 04/17/25 History release carbidopa ER 25 mg-levodopa 100 mg 1 tab PO UD 11/27/24 04/17/25 History tablet,extended release citalopram 20 mg tablet 20 mg PO DAILY 11/27/24 04/17/25 History clopidogrel 75 mg tablet 75 mg PO DAILY 11/27/24 04/17/25 History evolocumab 140 mg/mL subcutaneous 140 mg subcut UD 11/27/24 04/17/25 History pen injector (Neha Carter) ezetimibe 10 mg tablet 10 mg PO DAILY 11/27/24 04/17/25 History folic acid 400 mcg tablet 0.4 mg PO DAILY 11/27/24 04/17/25 History furosemide 20 mg tablet 20 mg PO DAILY PRN Edema 11/27/24 04/17/25 History metoprolol succinate 25 mg 25 mg PO HS 11/27/24 04/17/25 History tablet,extended release 24 hr multivitamin 1 tab PO DAILY 11/27/24 04/17/25 History nitroglycerin 0.4 mg sublingual 0.4 mg sublingual UD PRN Chest Pain 11/27/24 04/17/25 History tablet amlodipine 5 mg tablet 5 mg PO QAM #30 tabs 11/28/24 04/17/25 Rx isosorbide mononitrate 60 mg 90 mg (1.5 x 60 mg) PO DAILY #60 11/28/24 04/17/25 Rx tablet,extended release 24 hr tabs pantoprazole 40 mg tablet,delayed 40 mg PO QAM #30 tabs 11/28/24 04/17/25 Rx release Lactobacillus acidophilus 10 10,000 mmu cells PO DAILY 04/02/25 04/17/25 History billion cell capsule (Probiotic) calcium carbonate 500 mg PO DAILY 04/02/25 04/17/25 History cholecalciferol (vitamin D3) 25 25 mcg PO DAILY 04/02/25 04/17/25 History mcg (1,000 unit) capsule (Vitamin D3) coQ10 (ubiquinol) 200 mg capsule 400 mg PO DAILY 04/02/25 04/17/25 History desonide 0.05 % lotion 1 applic topical DAILY 04/02/25 04/17/25 History diclofenac sodium 1 % topical gel 4 g topical QID PRN Pain 04/02/25 04/17/25 History docusate sodium 100 mg capsule 100 mg PO DAILY PRN Constipation 04/02/25 04/17/25 History fluocinonide 0.05 % topical 1 applic topical 4XWK PRN 04/02/25 04/17/25 History solution REDNESS/FLAKING ketoconazole 2 % topical cream 1 applic topical .2-3XWK 04/02/25 04/17/25 Histor y melatonin 3 mg tablet 6 mg PO HS 04/02/25 04/17/25 History sennosides 8.6 mg-docusate sodium 1 tab-cap PO BID 04/02/25 04/17/25 History 50 mg tablet (Senokot-S) triamcinolone acetonide 0.1 % 1 applic topical BID PRN SKIN 04/02/25 04/02/25 History topical cream IRRITATIONS Patient History Medical History NSTEMI (non-ST elevated myocardial infarction) Mixed hyperlipidemia Multiple vessel coronary artery disease Atrial flutter Inguinal hernia Surgical History S/P tonsillectomy Family History Other Asthma Denies family history of Hypertension Social History Smoking Status: Former smoker Tobacco Type: Cigarettes Second Hand Exposure: No; Do You Dip or Chew Tobacco: No; Hx Alcohol Use: No Hx Substance Use: No Preferred Language: Nigerian Communication Ability: Effective Art History Professor Required: No Beliefs That Will Affect Care: None Current Living Situation: Family Feels Safe at Home: Yes Assistive Devices: Cane and Walker Review of Systems Review of Systems: All systems reviewed & are unremarkable except as noted in HPI & below Physical Exam Physical Exam: Physical Exam: General: Well nourished and well developed in NAD HEENT: EOMI, PERRL Neck: trachea midline, no lad Lungs: CTA b, bilateral bs present Heart: Irreg Irreg, no M Abd: soft, NT/ND, NABS Musculoskeletal: no c/c/e, normal strength B Neuro: CN2-12 intact, normal gait, normal strength Psych: normal affect and mood, euthymic. Results & Data Vital Signs (Past 12 Hours) Vital Signs Temp Pulse Pulse Resp BP BP Pulse Ox 04/17/25 14:34 51 L 16 196/109 H 93 04/17/25 11:06 45 L 16 129/66 91 04/17/25 10:49 51 L 20 112/60 94 04/17/25 10:19 52 L 04/17/25 09:00 51 L 19 146/71 H 95 04/17/25 07:04 53 L 20 143/74 H 92 04/17/25 06:00 51 L 19 149/76 H 94 04/17/25 05:30 54 L 23 134/78 95 04/17/25 05:28 54 L 04/17/25 05:15 56 L 16 133/74 97 04/17/25 05:15 36.6 C 60 12 133/74 96 O2 Del Method 04/17/25 14:34 Room Air 04/17/25 11:06 04/17/25 10:49 Room Air 04/17/25 10:19 04/17/25 09:00 Room Air 04/17/25 07:04 Room Air 04/17/25 06:00 04/17/25 05:30 04/17/25 05:28 04/17/25 05:15 04/17/25 05:15 Room Air PG Care Time/CCT Total # of Minutes Spent Total Time Spent with Patient: Total time spent is greater than 50% in coordination of care (as documented) at patient's floor/unit and/or counseling patient: Coding Level of Care Code 59098 IN/OBS CONSULT LVL 4,60M Diagnoses Colitis, acute K52.9
[2025-04-17 17:36] LABS: Hematocrit (blood only) 40.4 % (42.0-52.0); Hemoglobin 13.6 g/dL (14.0-18.0)
[2025-04-17] MEDS: CARBIDOPA/LEVODOPA 25/100MG EXT REL TAB PO SCH (17:41)
[2025-04-17] MEDS ORDERED: METOPROLOL SUCC 25MG EXT REL TAB PO SCH (21:00)
[2025-04-18 06:24] LABS: Hematocrit (blood only) 38.1 % (42.0-52.0); Hemoglobin 13.0 g/dL (14.0-18.0); Mean Corpuscular Hemoglobin 29.6 pg (25.0-34.0); Mean Corpuscular Volume 86.8 fL (80.0-100.0); Platelet Count 197 K/uL (130-400); RDW Standard Deviation 44.1 fL (36.4-46.3); Red Blood Count 4.39 M/uL (4.70-6.10); White Blood Count 4.99 K/ul (4.8-10.8)
[2025-04-18 06:50] LABS: Anion Gap 8.0 (3-11); Blood Urea Nitrogen 16.0 mg/dl (6-23); Calcium 8.8 mg/dl (8.6-10.3); Carbon Dioxide 23.0 mmol/L (21-32); Chloride 107.0 mmol/L (98-107); Creatinine Clr Calc Pharmacy 59.1 ml/min; Glucose 83.0 mg/dl (70-99(Fasting)); Magnesium 2.2 mg/dl (1.7-2.4); Potassium 3.6 mmol/L (3.5-5.1); Sodium 138.0 mmol/L (136-145)
[2025-04-18] MEDS: CITALOPRAM 20 MG TAB PO SCH (08:07)
[2025-04-18] MEDS: DOCUSATE SODIUM 100 MG CAP PO SCH (08:07)
[2025-04-18] MEDS: EZETIMIBE 10 MG TAB PO SCH (08:07)
[2025-04-18] MEDS: TRIAMCINOLONE ACET 0.025% CR 15 GM TUBE TOP SCH (08:08)
[2025-04-18] MEDS ORDERED: ISOSORBIDE MONO EXTENDED REL 30 MG TABCR PO SCH (09:00)
[2025-04-18] MEDS ORDERED: CHOLECALCIFEROL 25 MCG (1000 UNITS) TAB PO SCH (09:00)
[2025-04-18] MEDS ORDERED: NON-FORMULARY MEDICATION (Coq10 (Ubiquinol) 200 mg Capsule) PO SCH (09:00)
[2025-04-18] MEDS ORDERED: FOLIC ACID 400 MCG TAB PO SCH (09:00)
[2025-04-18] MEDS ORDERED: CALCIUM CARBONATE 1250MG TAB PO SCH (09:00)
[2025-04-18] MEDS ORDERED: CLOPIDOGREL BISULFATE 75 MG TAB PO SCH (09:00)
--- NOTE | 2025-04-18 11:26 | Hospitalist Progress Note ---
Date of Service April 18, 2025 Assessment & Plan (1) Colitis, acute: (2) Acute diverticulitis: (3) Paroxysmal atrial flutter: (4) CAD (coronary artery disease): (5) Hyperlipidemia: (6) Hypertension, uncontrolled: (7) Parkinson's disease: Plan: Patient is a 80 year old M with a past medical history of dyslipidemia, CAD, Paroxysmal Atrial flutter on dual antiplatelet treatment, HTN, colon polyps, prediabetes, Parkinson's presenting with rectal bleeding, abdominal pain, and belching x 1 day. Symptoms began yesterday afternoon with mild rectal bleeding, reportedly bright red blood that continued. Had a decreased appetite last evening, but able to eat without vomiting. No urinary symptoms or bleeding. On dual anti-platelet for many years with no history of stents. Presumably on dual antiplatelet for paroxysmal atrial flutter. Son at the bedside and reports patient was taking high doses of ibuprofen roughly 2 weeks ago for knee pain. Also with history of chronic, idiopathic constipation that was originally managed with Linzess, but has been stopped. He now takes Mag Citrate daily. Rectal bleeding 2/2 acute colitis with diverticulitis * Admit to Med Tele for additional management * Presenting w/ rectal bleeding and abdominal pain x 1 day * Hx of chronic idiopathic constipation previously managed with Linzess w/o improvement, now takes magnesium citrate daily; * Previous colonoscopy from 2019 showing 4 mm polyp to descending colon that was removed, as well as multiple small and large-mouthed diverticula to sigmoid. * Hgb stable * Suspect ischemic colitis rather than infectious colitis given his vasculopathy * -Still need to treat the diverticulitis Plan -Deescalate to CTX and flagyl for diverticulitis -No indication for zosyn or protonix drip, DC both -Advance to low fiber diet today -Resume home DAPT tomorrow if Hgb stable and no further BRBPR -DC IVF -OP colonoscopy in 6-8 weeks Paroxysmal A- Flutter * EKG showing A Flutter, vent rate 54, QTc 443 * On dual anti-platelet and metoprolol- * Bradycardic here to mid 50's * Tele monitoring * Mag 2.4-> trend and replace as needed CAD Hyperlipidemia * No stents; holding aspirin * CTAP showing atherosclerotic plaque in the aorta * On repatha, zetia-> continue Zetia while inpatient Hypertension * Per outside EMR- has low BP at PCP office 88-92/44-56 mmHg; reportedly home BP's 120-140/70-80 mmHg. * Holding home antihypertensives in setting of GI bleed Parkinson's * Follows with [facility] * Continue sinemet per home routine * Fall precautions- ambulates w/ cane I spent a total of 54 minutes coordinating, documenting, and providing care for this patient excluding time spent in the performance of separately billed services. This included personally reviewing all current laboratories and imaging studies, medical reconciliation, outpatient chart review and discussion with specialists Admission and Anticipated Discharge Date Admission Date: April 17, 2025 Subjective Feeling well today denies any compaints. abd pain resolved. diarrhea resolved Physical Exam Physical Exam: Vitals and labs reviewed General: Well appearing, NAD HEENT: EOMI, PERRLA Neck: Supple Cardiac: RRR no rubs gallops or murmurs Lungs: CTA no rhonchi wheezing or rales Abd: S NT ND BS positive : Deffered MSK: Full ROM. No obvious deformities Ext: No Edema cyanosis Skin: Warm, Dry Neuro: AOx3 No focal deficits. Psych: Normal Mood Results & Data Results & Data Vital Signs (Past 12 Hours) Vital Signs Temp Pulse Pulse Resp BP BP Pulse Ox 04/18/25 10:58 36.6 C 51 L 18 143/77 H 93 04/18/25 08:11 36.5 C 49 L 16 164/88 H 93 04/18/25 07:47 44 L 04/18/25 03:26 36.5 C 50 L 20 154/69 H 93 O2 Del Method 04/18/25 10:58 Room Air 04/18/25 08:11 Room Air 04/18/25 07:47 04/18/25 03:26 Room Air Laboratory Results Abnormal lab results 04/17/25 04/17/25 04/17/25 Range/Units 11:54 12:13 17:16 RBC (4.70-6.10) M/uL Hgb 13.6 L (14.0-18.0) g/dL Hct 41.4 L 40.4 L (42.0-52.0) % Ur Specific [place] > 1.045 H (1.000-1.030) Urine Protein Trace H (Negative) U Epithel Cells (Auto) 3-5 H (0-2) /hpf Urine Bacteria (Auto) 1+ H (None Seen) 04/18/25 Range/Units 05:21 RBC 4.39 L (4.70-6.10) M/uL Hgb 13.0 L (14.0-18.0) g/dL Hct 38.1 L (42.0-52.0) % Ur Specific [place] (1.000-1.030) Urine Protein (Negative) U Epithel Cells (Auto) (0-2) /hpf Urine Bacteria (Auto) (None Seen) (4) CAD (coronary artery disease) Associated angina: unspecified whether angina present Coronary Disease- Associated Artery/Lesion type: unspecified vessel or lesion type [place] vs. transplanted heart: [place] heart Qualified Code(s): I25.10 - Atherosclerotic heart disease of [place] coronary artery without angina pectoris (7) Parkinson's disease Dyskinesia presence: unspecified whether dyskinesia Fluctuating manifestations: unspecified whether manifestations fluctuate Qualified Code(s): G20.A1 - Parkinson's disease without dyskinesia, without mention of fluctuations
--- NOTE | 2025-04-18 11:52 | Gastroenterology Progress Note ---
Date of Service April 18, 2025 Assessment & Plan (1) Colitis: Plan: Progressive left-sided colitis. Diverticulitis typically would not be this diffuse or elongated. And also mostly not associated with rectal bleeding. He does not have elevated white count or fever. Because he has progressive left- sided colitis and there is involvement of the rectum rectosigmoid evaluate for inflammatory bowel disease. Ischemic disease on the differential though usually the rectal rectosigmoid is spared. Plan flexible sigmoidoscopy tomorrow. Also less likely infectious based on duration of symptoms and progression over 6+ months (2) Atrial flutter: (3) Multiple vessel coronary artery disease: Admission and Anticipated Discharge Date Admission Date: April 17, 2025 Subjective Colitis 80-year-old gentleman with progressive left-sided colitis. Here in July with hypotension and constipation. Changes at that time suggested mild to moderate colitis. Patient's medications were adjusted for hypotension. He now Represents with lower abdominal pain at or below the umbilicus. Passing blood with mucus. CT scan shows progression of the previous noted colitis predominately left-sided. Stool studies were ordered for C. difficile and infectious colitis though he has not had a bowel movement since admission. White count is normal he is afebrile. Normal platelet count. Hemoglobin 13.6- 13.0 Review of Systems Review of Systems: Currently denies increased abdominal pain chest pain or shortness of breath. Vague abdominal pain Physical Exam Physical Exam: Sleeping and arouses to voice. Orientated to person place and time Benign abdominal exam Results & Data Results & Data Vital Signs (Past 12 Hours) Vital Signs Temp Pulse Pulse Resp BP BP Pulse Ox 04/18/25 10:58 36.6 C 51 L 18 143/77 H 93 04/18/25 08:11 36.5 C 49 L 16 164/88 H 93 04/18/25 07:47 44 L 04/18/25 03:26 36.5 C 50 L 20 154/69 H 93 O2 Del Method 04/18/25 10:58 Room Air 04/18/25 08:11 Room Air 04/18/25 07:47 04/18/25 03:26 Room Air PG Care Time/CCT Total # of Minutes Spent Total Time Spent with Patient: Total time spent is greater than 50% in coordination of care (as documented) at patient's floor/unit and/or counseling patient: Coding Level of Care Code 58383 SUB INP/OBS CARE MIN Diagnoses Colitis K52.9 Atrial flutter I48.92 Multiple vessel coronary artery disease I25.10
[2025-04-18] MEDS: cefTRIAXone SODIUM 1,000 MG/50 ML BAG IV SCH (12:46)
[2025-04-18] MEDS: metroNIDAZOLE 500 MG TAB PO SCH (20:02)
--- NOTE | 2025-04-19 00:06 | Communication Note ---
Date of Service: April 19, 2025 Made aware by RN of uncontrolled blood pressure. SBP 180s to 200s in the last hour. Heart rate 50s Patient asymptomatic as per RN. AP Hypertensive urgency Blood pressure meds held on admission due to hypotension documented at PCPs office prior to admission Resume home amlodipine Will relay to AM provider.
--- NOTE | 2025-04-19 07:25 | Anesthesiology Consultation ---
Date of Service April 19, 2025 Assessment & Plan Chart Review Chart Review: Acceptable Risk for Surgery and Patient NOT seen in Pre Admission Testing Consults Requested none ASA ASA4 Proposed Anesthesia Anesthesia Type: MAC History Surgery Operation Date: 04/19/25 07:00 Proposed Procedures p Colonoscopy - Wyatt Perez MD Height/Weight Height: 5 ft 10 in Weight: 86 kg Allergies Allergy/AdvReac Type Severity Reaction Status Date / Time bee venom protein (honey bee) Allergy Severe SWELLING, Verified 04/02/25 00:37 INTENSE ITCHING, HIVES atorvastatin AdvReac Intermediate MUSCLE PAIN Verified 04/02/25 00:37 carbidopa [From Sinemet] AdvReac Intermediate Unknown/Family Verified 04/02/25 00:37 says only Sinemet, haven't tried Sinemet CR. gabapentin AdvReac Intermediate "CAN'T Verified 04/02/25 00:37 HANDLE IT" levodopa [From Sinemet] AdvReac Intermediate Unknown/Family Verified 04/02/25 00:37 says only Sinemet, haven't tried Sinemet CR. Medications Home Medications Medication Instructions Recorded Confirmed Last Taken aspirin 81 mg tablet,delayed 81 mg PO DAILY 11/27/24 04/17/25 04/16/25 release carbidopa ER 25 mg-levodopa 100 mg 1 tab PO UD 11/27/24 04/17/25 04/16/25 tablet,extended release citalopram 20 mg tablet 20 mg PO DAILY 11/27/24 04/17/25 04/16/25 clopidogrel 75 mg tablet 75 mg PO DAILY 11/27/24 04/17/25 04/16/25 evolocumab 140 mg/mL subcutaneous 140 mg subcut UD 11/27/24 04/17/25 04/16/25 pen injector (Neha Carter) ezetimibe 10 mg tablet 10 mg PO DAILY 11/27/24 04/17/25 04/16/25 folic acid 400 mcg tablet 0.4 mg PO DAILY 11/27/24 04/17/25 04/16/25 furosemide 20 mg tablet 20 mg PO DAILY PRN Edema 11/27/24 04/17/25 04/16/25 metoprolol succinate 25 mg 25 mg PO HS 11/27/24 04/17/25 04/16/25 tablet,extended release 24 hr multivitamin 1 tab PO DAILY 11/27/24 04/17/25 04/16/25 nitroglycerin 0.4 mg sublingual 0.4 mg sublingual UD PRN Chest Pain 11/27/24 04/17/25 04/16/25 tablet amlodipine 5 mg tablet 5 mg PO QAM #30 tabs 11/28/24 04/17/25 04/16/25 isosorbide mononitrate 60 mg 90 mg (1.5 x 60 mg) PO DAILY #60 11/28/24 04/17/25 04/16/25 tablet,extended release 24 hr tabs pantoprazole 40 mg tablet,delayed 40 mg PO QAM #30 tabs 11/28/24 04/17/25 04/16/25 release Lactobacillus acidophilus 10 10,000 mmu cells PO DAILY 04/02/25 04/17/25 04/16/25 billion cell capsule (Probiotic) calcium carbonate 500 mg PO DAILY 04/02/25 04/17/25 04/16/25 cholecalciferol (vitamin D3) 25 25 mcg PO DAILY 04/02/25 04/17/25 04/16/25 mcg (1,000 unit) capsule (Vitamin D3) coQ10 (ubiquinol) 200 mg capsule 400 mg PO DAILY 04/02/25 04/17/25 04/16/25 desonide 0.05 % lotion 1 applic topical DAILY 04/02/25 04/17/25 04/16/25 diclofenac sodium 1 % topical gel 4 g topical QID PRN Pain 04/02/25 04/17/25 04/16/25 docusate sodium 100 mg capsule 100 mg PO DAILY PRN Constipation 04/02/25 04/17/25 04/16/25 fluocinonide 0.05 % topical 1 applic topical 4XWK PRN 04/02/25 04/17/25 04/16/25 solution REDNESS/FLAKING ketoconazole 2 % topical cream 1 applic topical .2-3XWK 04/02/25 04/17/25 04/16/25 melatonin 3 mg tablet 6 mg PO HS 04/02/25 04/17/25 04/16/25 sennosides 8.6 mg-docusate sodium 1 tab-cap PO BID 04/02/25 04/17/25 04/16/25 50 mg tablet (Senokot-S) triamcinolone acetonide 0.1 % 1 applic topical BID PRN SKIN 04/02/25 04/02/25 Unknown topical cream IRRITATIONS Active Medications Generic Name Dose Route Start Last Admin Trade Name Rin PRN Reason Stop Dose Admin Carbidopa/Levodopa 1 tab 04/17/25 17:30 04/18/25 17:21 Carbidopa/Levodopa 25/100mg Ext Rel Tab PO 05/17/25 17:29 1 tab TID@0800,1130,1730 PHUONG Administration Citalopram Hydrobromide 20 mg 04/18/25 09:00 04/18/25 08:07 Citalopram 20 Mg Tab PO 05/18/25 08:59 20 mg DAILY PHUONG Administration Docusate Sodium 100 mg 04/18/25 09:00 04/18/25 08:07 Docusate Sodium 100 Mg Cap PO 05/18/25 08:59 100 mg DAILY PHUONG Administration Ezetimibe 10 mg 04/18/25 09:00 04/18/25 08:07 Ezetimibe 10 Mg Tab PO 05/18/25 08:59 10 mg DAILY PHUONG Administration Ceftriaxone Sodium 1,000 mg in 50 mls @ 100 mls/hr 04/18/25 12:00 04/18/25 13:20 Rocephin IV 04/28/25 11:59 Infused Q24H PHUONG Infusion Metronidazole 500 mg 04/18/25 21:00 04/18/25 20:02 Metronidazole 500 Mg Tab PO 04/28/25 20:59 500 mg BID PHUONG Administration Protocol Triamcinolone Acetonide 1 appln 04/18/25 09:00 04/18/25 08:08 Triamcinolone Acet 0.025% Cr 15 Gm Tube TOP 05/18/25 08:59 1 appln DAILY PHUONG Administration Past Medical History Medical History NSTEMI (non-ST elevated myocardial infarction) Mixed hyperlipidemia Multiple vessel coronary artery disease Atrial flutter Inguinal hernia HTN HLD ASCVD Ao/carotids PVD Hx/o SAH/SDH A Flutter/A Fib Parkinson's dis. Exercise / Class Metabolic Activity III < 4 Walking/Shop/Light housework Past Family History Family History Other Asthma Denies family history of Hypertension Past Surgical History Surgical History S/P tonsillectomy Past Anesthesia History No Hx of Anesthesia Complications and No Family Hx of Anesthesia Complications History of PONV No Hx of PONV and No Hx of Motion Sickness Social History Smoking Status: Never smoker Do You Dip or Chew Tobacco: No Hx Alcohol Use: No Hx Substance Use: No substance use type: does not use Physical Exam Vital Signs Last Vital Signs Temp 36.4 C L 04/19/25 03:09 Pulse 55 L 04/19/25 03:09 Resp 16 04/19/25 03:09 BP 191/83 H 04/19/25 03:09 Pulse Ox 93 04/19/25 03:09 O2 Del Method Room Air 04/19/25 03:09 Testing Laboratory Results 04/18/25 05:21 04/18/25 05:21 PT 10.5 Seconds (9.0-12.0) 04/17/25 05:18 INR 1.0 (0.9-1.1) 04/17/25 05:18 Urine Color Yellow 04/17/25 11:54 Urine Appearance Clear (Clear) 04/17/25 11:54 Urine pH 5.5 (4.5-7.5) 04/17/25 11:54 Ur Specific [place] > 1.045 (1.000-1.030) H 04/17/25 11:54 Urine Protein Trace (Negative) H 04/17/25 11:54 Urine Glucose (UA) Negative (Negative) 04/17/25 11:54 Urine Ketones Negative (Negative) 04/17/25 11:54 Urine Nitrite Negative (Negative) 04/17/25 11:54 Ur Leukocyte Esterase Negative (Negative) 04/17/25 11:54 Urine WBC (Auto) 0-5 /hpf (0-5) 04/17/25 11:54 Urine RBC (Auto) 0-2 /hpf (0-2) 04/17/25 11:54 U Hyaline Cast (Auto) 0-2 /lpf (0-2) 04/17/25 11:54 U Epithel Cells (Auto) 3-5 /hpf (0-2) H 04/17/25 11:54 Urine Bacteria (Auto) 1+ (None Seen) H 04/17/25 11:54 Blood Type O Positive 04/17/25 05:26 Antibody Screen NEGATIVE 04/17/25 05:26 Electrocardiogram Date: 04/17/25 Findings: + AFIB @ (A Flutter w/ variable AV Block @ 54;LAFB) Chest X-Ray Date: 04/01/25 Findings: + NAD Echocardiogram Date: 11/27/24 EF: 55% LV Function: dysfunctional RWMA: + hypokinetic (basal, septal,inferior and posterior HK) Other Findings: + LVH (mild) Valvular Disease: + MR (mild) severe calcification of non AV cusp w/o stenosis
[2025-04-19] MEDS ORDERED: PROPOFOL IV EMULSION 10 MG/ML 20 ML VIAL IV ONE ×3 (07:45→07:56)
[2025-04-19] MEDS ORDERED: LIDOCAINE 2% 2 ML VIAL/AMP(20MG/ML) INFIL ONE ×3 (07:45→07:54)
[2025-04-19] MEDS ORDERED: ATROPINE SULFATE 0.1 MG/ML 10ML SYR IV PRN (07:51)
--- NOTE | 2025-04-19 08:19 | Communication Note ---
Date of Service: April 19, 2025 Flexible sigmoidoscopy In the rectosigmoid to about 45 cm there is inflamed mucosa granular with few linear ulcerations. Atypical appearance. Potential IBD. Resolving ischemic colitis less likely neoplasia. Multiple biopsies performed. The proximal descending colon and distal transverse appeared normal. Poor preparation above here interfering with mucosal detail. Left-sided inflammation atypical appearance await biopsies
--- NOTE | 2025-04-19 08:31 | GI REPORT ---
[facility] Patient: BECKY MCCANN : 1945 Sex at : Male Age: 80 Years Procedure: Colonoscopy Date: 04/19/2025 Attending Physician: Wyatt Perez MD Referring MD: Hua Dalton DO Indications: - Lower GI bleed, abnormal imaging Medications: - Monitored Anesthesia Care Complications: - No immediate complications. Estimated Blood Loss: - Estimated blood loss was minimal. Procedure: - The pediatric colonoscope was introduced through the anus with the intention of advancing to the transverse colon. The scope was advanced to the anus before the procedure was aborted. Medications were given. - The colonoscopy was performed without difficulty. - The quality of the bowel preparation was fair. Findings: - The perianal examination was normal. - Rectum appeared to be normal just above the rectosigmoid extending to 45 cm there is inflamed mucosa with granularity friability and a few superficial ulcerations though the appearance is atypical for ulcerative colitis or Crohn's disease. Biopsies were performed. The proximal descending and distal transverse colon appeared normal though there was stool beyond here precluding further mucosal visualization. Impression: - Preparation of the colon was fair. - Rectum appeared to be normal just above the rectosigmoid extending to 45 cm there is inflamed mucosa with granularity friability and a few superficial ulcerations though the appearance is atypical for ulcerative colitis or Crohn's disease. Biopsies were performed. The proximal descending and distal transverse colon appeared normal though there was stool beyond here precluding further mucosal visualization. - No specimens collected. - Atypical inflammatory appearance of the sigmoid and distal descending colon. Potentially resolving ischemic change. IBD on the differential. Neoplasia not likely. Recommendation: - Await pathology results. Procedure Code(s): - 19128-48, Colonoscopy, flexible; diagnostic, including collection of specimen(s) by brushing or washing, when performed (separate procedure) CPT(R) - 202 copyright [employer]. All Rights Reserved. The CPT codes, CCI edits and ICD codes generated are intended as suggestions and were generated based on input data. These codes are preliminary and upon physician coder review may be revised to meet current compliance and payer requirements. The provider is responsible for the final determination of appropriate codes, and modifiers. Wyatt Perez MD This document has been electronically signed. Note Initiated:04/19/2025 Note Completed:04/19/2025 8:30 AM \\[email or web address]\[email or web address]\[id number]
--- NOTE | 2025-04-19 08:54 | Anesthesiology Progress Note ---
Date of Service April 19, 2025 Anesthesia Post Procedure Vital Signs Vital Signs: Temp Pulse Pulse Pulse Resp BP BP 04/19/25 08:45 36.7 C 55 L 14 04/19/25 08:35 50 L 20 04/19/25 08:25 51 L 19 04/19/25 08:15 36.2 C L 54 L 16 04/19/25 03:09 36.4 C L 55 L 16 191/83 H 04/18/25 23:55 55 L 195/81 H 04/18/25 23:23 36.3 C L 55 L 16 202/82 H 187/96 H 04/18/25 22:18 55 L 04/18/25 19:32 36.5 C 60 16 132/77 04/18/25 16:04 36.5 C 56 L 18 174/90 H 04/18/25 14:24 54 L 04/18/25 10:58 36.6 C 51 L 18 143/77 H BP Pulse Ox O2 Del Method O2 Flow Rate 04/19/25 08:45 139/91 95 Nasal Cannula 2 04/19/25 08:35 119/71 95 Nasal Cannula 4 04/19/25 08:25 120/64 97 Oxymask 10 04/19/25 08:15 108/56 L 91 Oxymask 7 04/19/25 03:09 93 Room Air 04/18/25 23:55 04/18/25 23:23 96 Room Air 04/18/25 22:18 04/18/25 19:32 98 Room Air 04/18/25 16:04 98 Room Air 04/18/25 14:24 04/18/25 10:58 93 Room Air Pain Intensity Abdomen: Pain Intensity: 4 Transfer of Care Handoff Completed per policy Notes Mental Status: alert / awake / arousable Patient Amnestic to Procedure: Yes Nausea / Vomiting: adequately controlled Pain: adequately controlled Airway Patency, RR, SpO2: stable & adequate BP & HR: stable & adequate Hydration State: stable & adequate Anesthetic Complications: no major complications apparent
[2025-04-19 09:40] LABS: Hematocrit (blood only) 39.8 % (42.0-52.0); Hemoglobin 13.4 g/dL (14.0-18.0); Mean Corpuscular Hemoglobin 28.6 pg (25.0-34.0); Mean Corpuscular Volume 84.9 fL (80.0-100.0); Platelet Count 204 K/uL (130-400); RDW Standard Deviation 42.4 fL (36.4-46.3); Red Blood Count 4.69 M/uL (4.70-6.10); White Blood Count 5.06 K/ul (4.8-10.8)
[2025-04-19 09:56] LABS: Anion Gap 6.0 (3-11); Blood Urea Nitrogen 10.0 mg/dl (6-23); Calcium 9.0 mg/dl (8.6-10.3); Carbon Dioxide 25.0 mmol/L (21-32); Chloride 106.0 mmol/L (98-107); Creatinine Clr Calc Pharmacy 66.6 ml/min; Glucose 96.0 mg/dl (70-99(Fasting)); Potassium 3.6 mmol/L (3.5-5.1); Sodium 137.0 mmol/L (136-145)
--- NOTE | 2025-04-19 10:28 | Hospitalist Progress Note ---
Date of Service April 19, 2025 Assessment & Plan (1) Colitis, acute: (2) Paroxysmal atrial flutter: (3) CAD (coronary artery disease): (4) Hyperlipidemia: (5) Hypertension, uncontrolled: (6) Parkinson's disease: Plan: Patient is a 80 year old M with a past medical history of dyslipidemia, CAD, Paroxysmal Atrial flutter on dual antiplatelet treatment, HTN, colon polyps, prediabetes, Parkinson's presenting with rectal bleeding, abdominal pain, and belching x 1 day. Symptoms began yesterday afternoon with mild rectal bleeding, reportedly bright red blood that continued. Had a decreased appetite last evening, but able to eat without vomiting. No urinary symptoms or bleeding. On dual anti-platelet for many years with no history of stents. Presumably on dual antiplatelet for paroxysmal atrial flutter. Son at the bedside and reports patient was taking high doses of ibuprofen roughly 2 weeks ago for knee pain. Also with history of chronic, idiopathic constipation that was originally managed with Linzess, but has been stopped. He now takes Mag Citrate daily. Rectal bleeding 2/2 acute colitis * Presenting w/ rectal bleeding and abdominal pain x 1 day * Hx of chronic idiopathic constipation previously managed with Linzess w/o improvement, now takes magnesium citrate daily; * Previous colonoscopy from 2019 showing 4 mm polyp to descending colon that was removed, as well as multiple small and large-mouthed diverticula to sigmoid. * Hgb stable at 13.4 * Suspect ischemic colitis rather than infectious colitis given his vasculopathy * GI does not believe he has diverticulitis. no diverticulitis * Colonoscopy 04/19 showing 45 cm of inflamed mucosa with few linear ulcerations-- suspicious for ischemic colitis * Differential would include IBD Plan -Since no diverticulitis, DC abx -Advance to low fiber diet for dinner since he tolerated his CLD this AM -Resume home DAPT today and monitor for bleeding -F/u on colonoscopy biopsies Paroxysmal A- Flutter * EKG showing A Flutter, vent rate 54, QTc 443 * On dual anti-platelet and metoprolol- * Bradycardic here to mid 50's * Tele monitoring * Mag 2.4-> trend and replace as needed CAD Hyperlipidemia * No stents; * CTAP showing atherosclerotic plaque in the aorta * On repatha, zetia-> continue Zetia while inpatient Hypertension * Reduce norvasc to 5mg * Resume home toprol 25mg tomorrow * Possibly resume home imdur on discharge if able Parkinson's * Follows with [facility] * Continue sinemet per home routine * Fall precautions- ambulates w/ cane I spent a total of 56 minutes coordinating, documenting, and providing care for this patient excluding time spent in the performance of separately billed services. This included personally reviewing all current laboratories and imaging studies, medical reconciliation, outpatient chart review and discussion with specialists Admission and Anticipated Discharge Date Admission Date: April 17, 2025 Subjective Feeling well today. seen after c scope. no abd pain or diarrhea today. he is hungry and tolerating liquids. he would like to try solids for his next meal. Patient denies F/C, CP, palpitations, SOB, dyspnea, abd pain, N/V/D Physical Exam Physical Exam: Vitals and labs reviewed General: Well appearing, NAD HEENT: EOMI, PERRLA Neck: Supple Cardiac: RRR no rubs gallops or murmurs Lungs: CTA no rhonchi wheezing or rales Abd: S NT ND BS positive : Deffered MSK: Full ROM. No obvious deformities Ext: No Edema cyanosis Skin: Warm, Dry Neuro: AOx3 No focal deficits. Psych: Normal Mood Results & Data Results & Data Vital Signs (Past 12 Hours) Vital Signs Temp Pulse Pulse Pulse Resp BP BP 04/19/25 09:47 59 L 04/19/25 09:47 04/19/25 09:00 55 L 18 04/19/25 08:45 36.7 C 55 L 14 04/19/25 08:35 50 L 20 04/19/25 08:25 51 L 19 04/19/25 08:15 36.2 C L 54 L 16 04/19/25 03:09 36.4 C L 55 L 16 191/83 H 04/18/25 23:55 55 L 195/81 H 04/18/25 23:23 36.3 C L 55 L 16 202/82 H 187/96 H BP Pulse Ox O2 Del Method O2 Flow Rate 04/19/25 09:47 04/19/25 09:47 Room Air 04/19/25 09:00 131/75 92 Room Air 04/19/25 08:45 139/91 95 Nasal Cannula 2 04/19/25 08:35 119/71 95 Nasal Cannula 4 04/19/25 08:25 120/64 97 Oxymask 10 04/19/25 08:15 108/56 L 91 Oxymask 7 04/19/25 03:09 93 Room Air 04/18/25 23:55 04/18/25 23:23 96 Room Air Laboratory Results Abnormal lab results 04/19/25 Range/Units 09:26 RBC 4.69 L (4.70-6.10) M/uL Hgb 13.4 L (14.0-18.0) g/dL Hct 39.8 L (42.0-52.0) % (3) CAD (coronary artery disease) Associated angina: unspecified whether angina present Coronary Disease- Associated Artery/Lesion type: unspecified vessel or lesion type [place] vs. transplanted heart: [place] heart Qualified Code(s): I25.10 - Atherosclerotic heart disease of [place] coronary artery without angina pectoris (6) Parkinson's disease Dyskinesia presence: unspecified whether dyskinesia Fluctuating manifestations: unspecified whether manifestations fluctuate Qualified Code(s): G20.A1 - Parkinson's disease without dyskinesia, without mention of fluctuations
[2025-04-19] MEDS: CLOPIDOGREL BISULFATE 75 MG TAB PO SCH (12:13)
[2025-04-19] MEDS: ASPIRIN 81 MG ECTAB PO SCH (12:13)
[2025-04-20 06:51] LABS: Hematocrit (blood only) 39.6 % (42.0-52.0); Hemoglobin 13.6 g/dL (14.0-18.0); Mean Corpuscular Hemoglobin 29.5 pg (25.0-34.0); Mean Corpuscular Volume 85.9 fL (80.0-100.0); Platelet Count 216 K/uL (130-400); RDW Standard Deviation 43.3 fL (36.4-46.3); Red Blood Count 4.61 M/uL (4.70-6.10); White Blood Count 4.34 K/ul (4.8-10.8)
[2025-04-20] MEDS: METOPROLOL SUCC 25MG EXT REL TAB PO SCH (07:05)
[2025-04-20 11:06] VITALS: RESP 18; TEMP 97.9; O2SAT 97
--- NOTE | 2025-04-20 11:16 | Discharge Summary ---
Discharge Summary Date of Service April 20, 2025 Principal Dx & Hospital Course #1 = Principal Diagnosis (1) Colitis, acute: (2) Paroxysmal atrial flutter: (3) CAD (coronary artery disease): (4) Hyperlipidemia: (5) Hypertension, uncontrolled: (6) Parkinson's disease: Patient is a 80 year old M with a past medical history of dyslipidemia, CAD, Paroxysmal Atrial flutter on dual antiplatelet treatment, HTN, colon polyps, prediabetes, Parkinson's presenting with rectal bleeding, abdominal pain, and belching x 1 day. Symptoms began yesterday afternoon with mild rectal bleeding, reportedly bright red blood that continued. Had a decreased appetite last evening, but able to eat without vomiting. No urinary symptoms or bleeding. On dual anti-platelet for many years with no history of stents. Presumably on dual antiplatelet for paroxysmal atrial flutter. CT showed desending colitis, possible diverticulitis. GI was consulted, did not believe he had diverticulitis so abx were stopped. Hgb stable. Colonoscopy 04/19 showing 45 cm of inflamed mu cosa with few linear ulcerations-- suspicious for ischemic colitis. Biopsies taken and pending. He tolerated solids and his DAPT was resumed yesterday. no further bleeding. Early this AM, he became confused and agitated. history of same per son. He is AOx4 and back to baseline this AM during rounds. Suspect hospital acquired delirium ISO Dopamine agonists for Parkinson's. He would like to go home today. vitals and labs are stable. Confirmed with RN most recent BP at 11 30 is 132/76. He will return home with son who agrees [facility] plan. Rectal bleeding 2/2 acute colitis * Presenting w/ rectal bleeding and abdominal pain x 1 day * Hx of chronic idiopathic constipation previously managed with Linzess w/o improvement, now takes magnesium citrate daily; * Previous colonoscopy from 2019 showing 4 mm polyp to descending colon that was removed, as well as multiple small and large-mouthed diverticula to sigmoid. * Hgb stable at 13.4 * Suspect ischemic colitis rather than infectious colitis given his vasculopathy * GI does not believe he has diverticulitis. no diverticulitis * Colonoscopy 04/19 showing 45 cm of inflamed mucosa with few linear ulcerations-- suspicious for ischemic colitis * Differential would include IBD Paroxysmal A- Flutter * EKG showing A Flutter, vent rate 54, QTc 443 * On dual anti-platelet and metoprolol- * Bradycardic here to mid 50's * Tele monitoring * Mag 2.4-> trend and replace as needed CAD Hyperlipidemia * No stents; * CTAP showing atherosclerotic plaque in the aorta * On repatha, zetia-> continue Zetia while inpatient Hypertension * Reduce norvasc to 5mg * Resume home toprol 25mg tomorrow * Possibly resume home imdur on discharge if able Parkinson's * Follows with [facility] * Continue sinemet per home routine * Fall precautions- ambulates w/ cane I spent a total of 48 minutes coordinating, documenting, and providing care for this patient excluding time spent in the performance of separately billed services. This included personally reviewing all current laboratories and imaging studies, medical reconciliation, outpatient chart review and discussion with specialists Notes For Next Care Provider Medication Changes From Visit none Admission HPI Per Admitting Provider Patient is a 80 year old M with a past medical history of dyslipidemia, CAD, Paroxysmal Atrial flutter on dual antiplatelet treatment, HTN, colon polyps, prediabetes, Parkinson's presenting with rectal bleeding, abdominal pain, and belching x 1 day. Symptoms began yesterday afternoon with mild rectal bleeding, reportedly bright red blood that continued. Had a decreased appetite last evening, but able to eat without vomiting. No urinary symptoms or bleeding. On dual anti-platelet for many years with no history of stents. Presumably on dual antiplatelet for paroxysmal atrial flutter. Son at the bedside and reports patient was taking high doses of ibuprofen roughly 2 weeks ago for knee pain. Also with history of chronic, idiopathic constipation that was originally managed with Linzess, but has been stopped. He now takes Mag Citrate daily. Denies fever, chills, weight loss, headache, cognitive changes, vision/hearing changes, chest pain, SOB, swelling, difficulty breathing, urinary concerns, N/V, ambulation difficulty, skin rashes, lesions, bruising. Discussed with ED provider CT imaging results, treatment rendered and reasons for admission re: management lower GI bleed. Per ED provider, rectal exam + heme stool. In the emergency department, patient was hemodynamically stable with bradycardia to mid-50's. Lab workup unremarkable for leukocytosis. EKG showing Atrial flutter with A-V block, vent rate 54 bpm, QTc 443. CT abdomen/pelvis showed diffuse rectosegmoid , descending and transverse colon mural thickening suggestive of acute colitis and acute diverticulitis. As per outpatient record, patient's last colonoscopy was in 2018 showing 4 mm polyp to descending colon that was removed, as well as multiple small and large- mouthed diverticula were found in the sigmoid colon. He did not followup with repeat colonoscopy that was recommended at 1 year. Patient was in [facility] ED 2 weeks ago for chest pain and weakness, no bleeding at that time. He was prescribed Flomax at PCP 2 days prior to ED visit for possible urinary retention that seemed to be acute from constipation; however, he became very weak on this mediation, developed chest pain and has since stopped taking this. Now without urinary concerns or symptoms. Additionally he has a history of Prediabetes with last A1C 5.8% from October 2024 assessment. Random glucose 115 today. Per Neuro note from 02/02/2025, patient with a history of Parksinon's dx that is well managed with Carbidopa/levodopa. Yusef toro has been experiencing anxiety symptoms and referred for Psychiatry consultation History obtained primarily from the patient and via hospitalization record. The patient's son was at the bedside and assisted with history of present and past medical history, home medications, and pertinent information to current health condition. Patient lives with this son, who is his primary transitional care manager. External chart review obtained from [facility]. Discharge Exam Vitals and labs reviewed General: Well appearing, NAD HEENT: EOMI, PERRLA Neck: Supple Cardiac: RRR no rubs gallops or murmurs Lungs: CTA no rhonchi wheezing or rales Abd: S NT ND BS positive : Deffered MSK: Full ROM. No obvious deformities Ext: No Edema cyanosis Skin: Warm, Dry Neuro: AOx3 No focal deficits. resting tremors Psych: Normal Mood Updated Medication List Medication Instructions Recorded Confirmed Type aspirin 81 mg tablet,delayed 81 mg PO DAILY 11/27/24 04/17/25 History release carbidopa ER 25 mg-levodopa 100 mg 1 tab PO UD 11/27/24 04/17/25 History tablet,extended release citalopram 20 mg tablet 20 mg PO DAILY 11/27/24 04/17/25 History clopidogrel 75 mg tablet 75 mg PO DAILY 11/27/24 04/17/25 History evolocumab 140 mg/mL subcutaneous 140 mg subcut UD 11/27/24 04/17/25 History pen injector (Neha Carter) ezetimibe 10 mg tablet 10 mg PO DAILY 11/27/24 04/17/25 History folic acid 400 mcg tablet 0.4 mg PO DAILY 11/27/24 04/17/25 History furosemide 20 mg tablet 20 mg PO DAILY PRN Edema 11/27/24 04/17/25 History metoprolol succinate 25 mg 25 mg PO HS 11/27/24 04/17/25 History tablet,extended release 24 hr multivitamin 1 tab PO DAILY 11/27/24 04/17/25 History nitroglycerin 0.4 mg sublingual 0.4 mg sublingual UD PRN Chest Pain 11/27/24 04/17/25 History tablet amlodipine 5 mg tablet 5 mg PO QAM #30 tabs 11/28/24 04/17/25 Rx isosorbide mononitrate 60 mg 90 mg (1.5 x 60 mg) PO DAILY #60 11/28/24 04/17/25 Rx tablet,extended release 24 hr tabs pantoprazole 40 mg tablet,delayed 40 mg PO QAM #30 tabs 11/28/24 04/17/25 Rx release Lactobacillus acidophilus 10 10,000 mmu cells PO DAILY 04/02/25 04/17/25 History billion cell capsule (Probiotic) calcium carbonate 500 mg PO DAILY 04/02/25 04/17/25 History cholecalciferol (vitamin D3) 25 25 mcg PO DAILY 04/02/25 04/17/25 History mcg (1,000 unit) capsule (Vitamin D3) coQ10 (ubiquinol) 200 mg capsule 400 mg PO DAILY 04/02/25 04/17/25 History desonide 0.05 % lotion 1 applic topical DAILY 04/02/25 04/17/25 History diclofenac sodium 1 % topical gel 4 g topical QID PRN Pain 04/02/25 04/17/25 History docusate sodium 100 mg capsule 100 mg PO DAILY PRN Constipation 04/02/25 04/17/25 History fluocinonide 0.05 % topical 1 applic topical 4XWK PRN 04/02/25 04/17/25 History solution REDNESS/FLAKING ketoconazole 2 % topical cream 1 applic topical .[id number] 04/02/25 04/17/25 History melatonin 3 mg tablet 6 mg PO HS 04/02/25 04/17/25 History sennosides 8.6 mg-docusate sodium 1 tab-cap PO BID 04/02/25 04/17/25 History 50 mg tablet (Senokot-S) triamcinolone acetonide 0.1 % 1 applic topical BID PRN SKIN 04/02/25 04/02/25 History topical cream IRRITATIONS Hospital Stay Data Consultations 04/17/25 09:17 ED Decision to Admit Stat 04/17/25 12:59 Consult Gastroenterology Routine Procedures Performed Operation Date: 04/19/25 07:00 Actual Procedures p Flexible Sigmoidoscopy with Biopsy(Not Applicable) - Wyatt Perez MD Diagnostic Imagining Performed 04/17/25 07:19 CT abd pelvis IV con only Stat Pending Results Patient Have Any Pending Studies at Discharge: Yes Discharge Instructions Given to Patient (Per Discharging Provider) Please follow up with your PCP. THe linen room houseperson took biopsies during the colonoscopy. please make sure your PCP follows up on the results in 1 week. Total Time Total Time Spent Total Time Spent (In Minutes): 48
[2025-04-20 11:31] VITALS: PULSE 63
[2025-04-20 12:11] VITALS: BP 202/92
--- NOTE | 2025-04-22 06:47 | Communication Note ---
Date of Service: April 22, 2025 severe inflammatory chenges, path non-diagnostic for Crohns, CMV herpes appear negative. 6 months history suggest IBD, start mesalamine
[2025-04-22] MEDS ORDERED: MESALAMINE 800 MG TABCR PO SCH (09:00)
== END 2025-04-20 13:15 | disposition home or self-care (01) | DRG 394 ==
LOC: ED 05:03 → SUATTDRO 10:28 → EDINP 10:28 → 2W 12:59